=== PATIENT | female | born 1945 | race Caucasian/White ===

== ENCOUNTER 2016-06-06 23:07 | Observation (INO) | payer OTHER ==
[~2016-06-06] VITALS: Ht 170.2 cm; Wt 159.0 kg
[~2016-06-06 23:07] MED LIST: 1-ME1LIQ PO; ASPI81TA11 PO; D31000CA PO; FURO20 PO; KCL10C PO; LISI20 PO; MOBI7.5T PO; SERT-129 PO
[2016-06-06 23:20] VITALS: BP 134/66; PULSE 82; RESP 19; TEMP 97.6; O2SAT 96
[2016-06-06] MEDS ORDERED: ACETAMINOPHEN 500 MG CPLT PO ONE (23:30)
[2016-06-06] MEDS ORDERED: SODIUM CHLORIDE 0.9% FLUSH 5 ML FLUSH IVF PRN (23:30)
--- NOTE | 2016-06-06 23:35 | PD ---
HPI Chief Complaint: Fall Time Seen by Provider: 23:09 Travel History International Travel<30 days: No Contact w/Intl Traveler<30days: No Traveled to known affect area: No History of Present Illness HPI Morbidly obese 70-year-old female who presents the emergency department for generalized weakness after a fall. Patient states that she has not been ambulatory for the better part of 6 months, wheelchair-bound. Over the last week she has been generally weak, and unable to even get out of bed it. She attempted to get out of bed evening when she slid out of the side of the bed onto the floor. Patient denies hurting herself, hitting her head, LOC. She has chronic hip and knee pain but this is not any worse than it is at baseline. EMS was summoned for lift assist, but when they found patient so generally weak and the house in a deplorable state patient was transported here. PFSH Past Medical History Anxiety: Yes Depression: No Cancer: No Cardiovascular Problems: Yes High Cholesterol: No Diabetes: No Genitourinary: Yes (INCONTINENCE ) Hypertension: Yes Immune Disorder: No Psychiatric: No Reproductive: No Respiratory: No (OCCASIONALLY GETS SOB ON EXERTION) Thyroid Disease: No ?: Not Past Surgical History Abdominal Surgery: Yes (gastric bypass) Section: Yes Cholecystectomy: Yes Social History Alcohol Use: Yes (2 drinks daily) Tobacco Use: No Substance Use: No Allergies-Medications (Allergen,Severity, Reaction): Coded Allergies: Codeine (Verified Allergy, Severe, 06/06/16) sever n/v Demerol (Verified Allergy, Severe, 06/06/16) sever n/v Reported Meds & Prescriptions Reported Meds & Active Scripts Active Review of Systems ROS Limitations: Poor Historian Except as stated in HPI: all other systems reviewed are Neg Physical Exam Exam Limitations: Poor Historian Narrative GENERAL: Morbidly obese female in no acute distress SKIN: Warm and dry. HEAD: Atraumatic. Normocephalic. EYES: Pupils equal and round. No scleral icterus. No injection or drainage. ENT: No nasal bleeding or discharge. Mucous membranes pink and moist. NECK: Supple, obese, no midline tenderness CARDIOVASCULAR: Regular rate and rhythm. No murmur appreciated. RESPIRATORY: No accessory muscle use. Clear to auscultation. Breath sounds equal bilaterally. GASTROINTESTINAL: Abdomen soft, non-tender, nondistended. Obese MUSCULOSKELETAL: Venous stasis edema in the bilateral lower extremities. Passive range of motion of the extremities without pain. Patient is able to lift the upper extremities off the bed, but is not able to do so with the lower extremities. She is not able to shift her weight in bed. NEUROLOGICAL: Awake and alert. No obvious cranial nerve deficits. Motor grossly within normal limits. Normal speech. PSYCHIATRIC: Appropriate mood and affect; insight and judgment normal. Data Data Last Documented VS Vital Signs Date Time Temp Pulse Resp B/P Pulse Ox O2 Delivery O2 Flow Rate FiO2 06/06/16 23:24 84 19 96 Room Air 06/06/16 23:20 97.6 134/66 Orders Basic Metabolic Panel (Bmp) (06/06/16 23:18) Complete Blood Count With Diff (06/06/16 23:18) Urinalysis - C+S If Indicated (06/06/16 23:18) Iv Access Insert/Monitor (06/06/16 23:18) Ecg Monitoring (06/06/16 23:18) Oximetry (06/06/16 23:18) Sodium Chloride 0.9% Flush (Ns Flush) (06/06/16 23:30) Cath For Specimen (06/06/16 23:18) Acetaminophen (Tylenol) (06/06/16 23:30) Hydralazine Inj (Apresoline Inj) (06/07/16 00:00) Labs Laboratory Tests Test 06/06/16 06/06/16 23:58 23:59 Sodium Level 144 MEQ/L Potassium Level 4.5 MEQ/L Chloride Level 109 MEQ/L Carbon Dioxide Level 25.5 MEQ/L Anion Gap 10 MEQ/L Blood Urea Nitrogen 13 MG/DL Creatinine 0.84 MG/DL Estimat Glomerular Filtration 67 ML/MIN Rate Random Glucose 75 MG/DL Calcium Level 8.9 MG/DL White Blood Count 8.9 TH/MM3 Red Blood Count 4.39 MIL/MM3 Hemoglobin 13.9 GM/DL Hematocrit 42.3 % Mean Corpuscular Volume 96.3 FL Mean Corpuscular Hemoglobin 31.6 PG Mean Corpuscular Hemoglobin 32.8 % Concent Red Cell Distribution Width 15.8 % Platelet Count 219 TH/MM3 Mean Platelet Volume 10.3 FL Neutrophils (%) (Auto) 76.4 % Lymphocytes (%) (Auto) 10.3 % Monocytes (%) (Auto) 9.6 % Eosinophils (%) (Auto) 3.2 % Basophils (%) (Auto) 0.5 % Neutrophils # (Auto) 6.8 TH/MM3 Lymphocytes # (Auto) 0.9 TH/MM3 Monocytes # (Auto) 0.9 TH/MM3 Eosinophils # (Auto) 0.3 TH/MM3 Basophils # (Auto) 0.0 TH/MM3 CBC Comment AUTO DIFF Differential Comment AUTO DIFF CONFIRMED Platelet Estimate NORMAL Platelet Morphology Comment NORMAL Acanthocytes OCC MDM Medical Decision Making Medical Screen Exam Complete: Yes Emergency Medical Condition: Yes Medical Record Reviewed: Yes Differential Diagnosis 70-year-old female here with complaint of generalized weakness status post fall. Her weakness certainly does not sound acute, but has been worsening over the course the last 6 months. She denies any new, acute pain from her fall and does not have any focal findings on exam. Differential includes failure to thrive, morbid obesity, UTI, anemia, electrolyte abnormality, generalized weakness. Narrative Course Patient placed on monitor, IV established and blood obtained. Given Tylenol for chronic pain. CBC, BMP unremarkable. Urinalysis remains pending. Patient will be admitted for physical therapy, and likely placement. Diagnosis Primary Impression: Failure to thrive in adult Additional Impressions: Inability to ambulate due to multiple joints Generalized weakness Morbid obesity Qualified Code: E66.01 - Morbid obesity due to excess calories Admitting Information Admitting Physician Requests: Gracy Haskins MD Jun 06, 2016 23:35
[2016-06-07] VITALS (7 sets, daily range): BP systolic 122–167; BP diastolic 57–80; PULSE 85–100; RESP 18–20; TEMP 96–98.6; O2SAT 92–96
[2016-06-07] MEDS ORDERED: hydrALAZINE HCL 20 MG/ML VIAL IV PUSH ONE
[2016-06-07 00:11] LABS: AUTOMATED NEUTROPHIL # 6.8 TH/MM3 (1.8-7.7); BASOPHIL % 0.5 % (0.0-2.0); EOSINOPHIL # 0.3 TH/MM3 (0-0.4); EOSINOPHIL % 3.2 % (0.0-4.0); HEMATOCRIT 42.3 % (35.0-46.0); LYMPH % 10.3 % (9.0-44.0); LYMPHOCYTE # 0.9 TH/MM3 (1.0-4.8); MEAN CELL VOLUME 96.3 FL (80.0-100.0); MEAN CORPUSCULAR HEMOGLOBIN 31.6 PG (27.0-34.0); MEAN CORPUSCULAR HGB CONC 32.8 % (32.0-36.0); MONO % 9.6 % (0.0-8.0); NEUT % 76.4 % (16.0-70.0); PLATELET COUNT 219 TH/MM3 (150-450); RED BLOOD COUNT 4.39 MIL/MM3 (4.00-5.30); RED CELL DISTRIBUTION WIDTH 15.8 % (11.6-17.2); WHITE BLOOD COUNT 8.9 TH/MM3 (4.0-11.0)
[2016-06-07 00:14] LABS: HEMO FLAGS AUTO DIFF
[2016-06-07 00:47] LABS: BICARBONATE 25.5 MEQ/L (21.0-32.0)
[2016-06-07 00:51] LABS: ACANTHOCYTES OCC (NORMAL); PLATELET ESTIMATE SMEAR NORMAL (NORMAL); PLATELET MORPHOLOGY NORMAL (NORMAL); SCAN/DIFF AUTO DIFF CONFIRMED
[2016-06-07 00:53] LABS: POTASSIUM 4.5 MEQ/L (3.5-5.1)
[2016-06-07] MEDS ORDERED: SODIUM CHLORIDE 0.9% FLUSH 5 ML FLUSH FLUSH PRN (01:30)
[2016-06-07] MEDS ORDERED: BISACODYL 10 MG SUPP PR PRN (01:30)
[2016-06-07 01:42] LABS: BACTERIA, URINE MANY /hpf; BLOOD, URINE TRACE (NEG); CALCIUM OXALATE CRYSTALS,URINE RARE /hpf; GLUCOSE,URINE NEG (NEG); KETONE, URINE 10 mg/dL (NEG); MUCUS URINE FEW /lpf (OCC); SQUAMOUS EPITHELIAL CELL URINE 1 /hpf (0-5); URINE COLOR YELLOW (YELLW/STRAW)
[2016-06-07 01:44] LABS: COMMENT (UR) CATH-CULTURE IND; CULTURE IF INDICATED CATH CULTURE IND; NITRITE,URINE POS (NEG)
--- NOTE | 2016-06-07 02:25 | HHI.HP ---
[facility] Service [place] [facility] Primary Care Physician Milan Beckett MD Admission Diagnosis generalized weakness, failure to thrive, inability to ambulate Diagnoses: (1) Fall Diagnosis: Principal (2) Generalized weakness Diagnosis: Principal (3) Total self-care deficit Diagnosis: Principal (4) Morbid obesity Diagnosis: Principal (5) UTI (urinary tract infection) Diagnosis: Principal Travel History International Travel<30 Days: No Contact w/Intl Traveler <30 Da: No Traveled to Known Affected Are: No History of Present Illness This is a 70-year-old female with a PMH of Anxiety, HTN and Morbid Obesity (BMI 54.9) who was brought to the ER by EMS after a fall at home. Pt wheelchair- bound at baseline. States her and her recently moved to new apartment 2wks ago. 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 unable to help her get up. Per pt, is fully ambulatory and able to care for her "95% of the time", however EMS notes apartment in deplorable state. On arrival, BP 134/66, HR 82, O2 sat 96% on RA, Afebrile. Labs essentially unremarkable. Review of Systems Other ROS: 14 point review of systems otherwise negative. Past Family Social History Past Medical History PMH: Anxiety, HTN and Morbid Obesity (BMI 54.9) Past Surgical History PAST SURGICAL HISTORY: Gastric Bypass, Cholecystectomy, Allergies: Coded Allergies: Codeine (Verified Allergy, Severe, 06/06/16) sever n/v Demerol (Verified Allergy, Severe, 06/06/16) sever n/v Family History PAST FAMILY HISTORY: Reviewed. No h/o DM or CAD Social History PAST SOCIAL HISTORY: Occasional alcohol. Negative for tobacco or drugs. Physical Exam Vital Signs Vital Signs Date Time Temp Pulse Resp B/P Pulse Ox O2 Delivery O2 Flow Rate FiO2 06/06/16 23:24 84 19 96 Room Air 06/06/16 23:20 97.6 82 19 134/66 96 Physical Exam PE: GENERAL: Elderly, morbidly obese white female in no acute distress. HEENT: PERRLA, EOMI. No scleral icterus or conjunctival pallor. No lid lag or facial droop. Very poor dentition. CARDIOVASCULAR: Regular rate and rhythm. No obvious murmurs to auscultation. No chest tenderness to palpation. RESPIRATORY: No obvious rhonchi or wheezing. Clear to auscultation. Breath sounds equal bilaterally. GASTROINTESTINAL: Abdomen soft, non-tender, nondistended. BS normal. MUSCULOSKELETAL: Extremities without clubbing. Bilateral lower extremity edema, chronic skin changes. No obvious deformities. NEUROLOGICAL: Awake, alert and oriented x4. No focal neurologic deficits. Moving upper extremities, weakness lower extremities. Laboratory Laboratory Tests Test 06/06/16 06/06/16 06/07/16 23:58 23:59 01:04 Sodium Level 144 Potassium Level 4.5 Chloride Level 109 Carbon Dioxide Level 25.5 Anion Gap 10 Blood Urea Nitrogen 13 Creatinine 0.84 Estimat Glomerular Filtration 67 Rate Random Glucose 75 Calcium Level 8.9 White Blood Count 8.9 Red Blood Count 4.39 Hemoglobin 13.9 Hematocrit 42.3 Mean Corpuscular Volume 96.3 Mean Corpuscular Hemoglobin 31.6 Mean Corpuscular Hemoglobin 32.8 Concent Red Cell Distribution Width 15.8 Platelet Count 219 Mean Platelet Volume 10.3 Neutrophils (%) (Auto) 76.4 Lymphocytes (%) (Auto) 10.3 Monocytes (%) (Auto) 9.6 Eosinophils (%) (Auto) 3.2 Basophils (%) (Auto) 0.5 Neutrophils # (Auto) 6.8 Lymphocytes # (Auto) 0.9 Monocytes # (Auto) 0.9 Eosinophils # (Auto) 0.3 Basophils # (Auto) 0.0 CBC Comment AUTO DIFF Differential Comment AUTO DIFF CONFIRMED Platelet Estimate NORMAL Platelet Morphology Comment NORMAL Acanthocytes OCC Urine Color YELLOW Urine Turbidity HAZY Urine pH 6.0 Urine Specific [place] 1.026 Urine Protein 30 Urine Glucose (UA) NEG Urine Ketones 10 Urine Occult Blood TRACE Urine Nitrite POS Urine Bilirubin SMALL Urine Urobilinogen 2.0 Urine Leukocyte Esterase LARGE Urine RBC 6 Urine WBC 72 Urine Squamous Epithelial 1 Cells Urine Calcium Oxalate Crystals RARE Urine Bacteria MANY Urine Mucus FEW Microscopic Urinalysis Comment CATH-CULTURE IND Date/Time Procedure Status Source Growth 06/07/16 01:04 Urine Culture Received Urine Catheterized Urine Pending Result Diagram: 06/06/16 2359 06/06/16 2358 Assessment and Plan Problem List: (1) Fall ICD Code: W19.XXXA Status: Acute (2) Generalized weakness ICD Code: R53.1 Status: Acute (3) Total self-care deficit ICD Code: R41.89 Status: Acute (4) Morbid obesity ICD Code: E66.01 Status: Acute (5) UTI (urinary tract infection) ICD Code: N39.0 Status: Acute Assessment and Plan A/P: 1. Fall: fall from bed, no head trauma or LOC, likely secondary to physical deconditioning. Wheelchair bound at baseline. 2. Generalized Weakness: Progressively worse x2 wks, wheelchair bound at baseline, non-ambulatory. Likely combination of morbid obesity, physical deconditioning and acute UTI. 3. Total Self-Care Deficit: Pt unable to care for self, wheelchair bound, unable to ambulate/transfer unassisted secondary to morbid obesity. 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 Will consult Case Management for assistance w/ possible placement. 4. Morbid Obesity: BMI 54.9. 5. UTI: U/a w/ UTI. Start IV Rocephin. 6. DVT Prophylaxis: Heparin 7. Social work for d/c planning as needed. 8. Case discussed w/ ER physician at length Problem Qualifiers (1) Morbid obesity: Qualified Code: E66.01 - Morbid obesity due to excess calories Fracnes Brush MD Jun 07, 2016 02:25
[2016-06-07] MEDS: cefTRIAXone INJ 1,000 MG in SODIUM CHLORIDE 0.9% INJ 100 ML IV SCH (03:57)
[2016-06-07] MEDS: NYSTATIN 100,000 U/GM PWD 15 GM BTL TOPICAL SCH ×3 (06:26→20:45)
--- NOTE | 2016-06-07 08:14 | HHI.PR ---
Subjective Remarks Follow up for fall and UTI. The patient explains that she just slipped off her new bed while reaching for her phone cord. Denies any injury, however could not get herself off the floor. She has been in the bed for over 1 week now since moving to her new apartment. She recently had C RN, CORNER FORMER, and PT coming to her home which started last Wednesday, arranged by her PCP. Prior to moving, she would occasionally be able to stand and pivot from wheelchair to bed but now unable to stand. She does not want to go to rehab but instead would prefer to return home with [facility]. She denies any dysuria, increased urinary frequency/urgency; she does have incontinence at baseline for over a year now. She reports her lower extremities were "very bad" in March with significant edema and weeping wounds. She was started on lasix at that time and now her lower extremities are much improved. Objective Vitals Vital Signs Date Time Temp Pulse Resp B/P Pulse Ox O2 Delivery O2 Flow Rate FiO2 06/07/16 06:51 96.0 85 18 124/68 95 06/07/16 04:50 97.5 87 20 144/67 95 06/07/16 03:00 98.6 85 20 146/80 96 06/07/16 02:45 86 20 167/74 96 06/06/16 23:24 84 19 96 Room Air 06/06/16 23:20 97.6 82 19 134/66 96 Result Diagram: 06/06/162 06/06/16 226 Objective Remarks GENERAL: Well-nourished, well-developed morbidly obese patient in [facility]. SKIN: Warm and dry. HEAD: Normocephalic. Atraumatic. EYES: Pupils equal and round. No scleral icterus. No injection or drainage. ENT: No nasal bleeding or discharge. Mucous membranes pink and moist. NECK: Supple. Trachea midline. CARDIOVASCULAR: Regular rate and rhythm. S1, S2 noted. No murmur appreciated. RESPIRATORY: No accessory muscle use. Clear to auscultation. Breath sounds equal bilaterally. GASTROINTESTINAL: Abdomen soft, non-tender, nondistended. Normoactive bowel sounds x4. MUSCULOSKELETAL: No obvious deformities. Bilateral lower extremities with chronic nonpitting edema, some overlying excoriations/scabs. NEUROLOGICAL: Awake and alert. No obvious cranial nerve deficits. Motor grossly within normal limits. 5/5 muscle strength in bilateral upper and lower extremities. Normal speech. PSYCHIATRIC: Appropriate mood and affect; insight and judgment normal. Medications and IVs Current Medications Medications (Trade) Dose Ordered Sig/Alhaji Route Start Time Stop Time Status Last Admin (NS Flush) 2 ml UNSCH PRN FLUSH 06/07/16 01:30 (NS Flush) 2 ml BID FLUSH 06/07/16 09:00 (Zofran Inj) 4 mg Q6H PRN IVP 06/07/16 01:30 (Dulcolax Supp) 10 mg DAILY PRN TX 06/07/16 01:30 (Heparin Inj) 5,000 units Q12HR SQ 06/07/16 09:00 (Tylenol) 650 mg Q6H PRN PO 06/07/16 01:30 Nystatin 1 applic 1 applic Q8HR TOPICAL 06/07/16 06:00 06/07/16 06:26 (Rocephin Inj/NS Inj) 100 ml @ 200 mls/hr Q24H IV 06/07/16 03:00 06/07/16 03:57 Urinary Catheter: No Vascular Central Line Catheter: No A/P Problem List: (1) Fall ICD Code: W19.XXXA Status: Acute (2) Generalized weakness ICD Code: R53.1 Status: Acute (3) Total self-care deficit ICD Code: R41.89 Status: Acute (4) Morbid obesity ICD Code: E66.01 Status: Chronic (5) UTI (urinary tract infection) ICD Code: N39.0 Status: Acute Assessment and Plan 70-year-old female with a PMH of Anxiety, HTN and Morbid Obesity (BMI 54.9) who was brought to the ER by EMS after a fall at home. Pt wheelchair-bound at baseline. Fall: fall from bed, no head trauma or LOC, likely secondary to physical deconditioning. Wheelchair bound at baseline. Consult PT/OT. Generalized Weakness: Progressively worse x2 wks, wheelchair bound at baseline , non-ambulatory. Likely combination of morbid obesity, physical deconditioning and acute UTI. Total Self-Care Deficit: Pt unable to care for self, wheelchair bound, unable to ambulate/transfer unassisted secondary to morbid obesity. 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 Consult Case Management for assistance w/ possible placement; however patient adamantly wants to return home. She recently started having C RN/PT come to the home and would like to resume this. Morbid Obesity: BMI 54.9. UTI: U/a w/ UTI. Afebrile, no leukocytosis. Start IV Rocephin. Follow urine culture. DVT Prophylaxis: Heparin sq Case management for d/c planning. Attending Statement The exam, history, and the medical decision-making described in the above note were completed with the assistance of the mid-level provider. I reviewed and agree with the findings presented. I attest that I had a [id number] encounter with the patient on the same day, and personally performed and documented my assessment and findings in the medical record. Problem Qualifiers (1) Fall: Qualified Code: W19.XXXD - Fall, subsequent encounter (2) Morbid obesity: Qualified Code: E66.01 - Morbid obesity, unspecified obesity type (3) UTI (urinary tract infection): Qualified Code: N30.00 - Acute cystitis without hematuria Pastora Dunham PA-C Jun 07, 2016 08:14 Ede Shin MD Jun 15, 2016 18:44
[2016-06-07] MEDS ORDERED: VITA10003 PO (09:43)
[2016-06-07] MEDS ORDERED: ASPI1TAB69 PO (09:43)
[2016-06-07] MEDS ORDERED: LISI-515 PO (09:54)
[2016-06-07] MEDS ORDERED: SERT-129 PO (09:54)
[2016-06-07] MEDS ORDERED: POTA10TA2 PO (09:54)
[2016-06-07] MEDS ORDERED: MELO7.5T4 PO (09:54)
[2016-06-07] MEDS ORDERED: FURO20TA PO (09:54)
[2016-06-07] MEDS ORDERED: AMLO10TA2 PO (09:57)
[2016-06-07] MEDS: ONDANSETRON HCL 4 MG/2 ML VIAL IVP PRN (10:15)
[2016-06-07] MEDS: HEPARIN SODIUM - SQ 10,000 UNITS/ML VIAL SQ SCH ×2 (10:16→20:45)
[2016-06-07] MEDS: SODIUM CHLORIDE 0.9% FLUSH 5 ML FLUSH FLUSH SCH ×2 (10:16→20:45)
[2016-06-07] MEDS: ACETAMINOPHEN 325 MG TAB PO PRN ×2 (11:53→18:25)
[2016-06-07] MEDS: ACETAMINOPHEN/HYDROcodone 325 MG/5 MG TAB PO PRN ×2 (14:15→20:45)
[2016-06-07] MEDS: MELOXICAM 7.5 MG TAB PO SCH (20:44)
[2016-06-07] MEDS ORDERED: SERTRALINE HCL 100 MG TAB PO SCH (21:00)
[2016-06-08 00:11] VITALS: BP 119/62; PULSE 84; RESP 20; TEMP 98; O2SAT 96
[2016-06-08] MEDS: cefTRIAXone INJ 1,000 MG in SODIUM CHLORIDE 0.9% INJ 100 ML IV SCH (02:06)
[2016-06-08] MEDS: ACETAMINOPHEN/HYDROcodone 325 MG/5 MG TAB PO PRN (03:44)
[2016-06-08] MEDS: NYSTATIN 100,000 U/GM PWD 15 GM BTL TOPICAL SCH ×2 (03:44→14:39)
[2016-06-08 04:21] LABS: AUTOMATED NEUTROPHIL # 3.8 TH/MM3 (1.8-7.7); BASOPHIL % 0.7 % (0.0-2.0); EOSINOPHIL # 0.3 TH/MM3 (0-0.4); EOSINOPHIL % 5.4 % (0.0-4.0); HEMATOCRIT 36.9 % (35.0-46.0); HEMO FLAGS DIFF FINAL; LYMPH % 21.7 % (9.0-44.0); LYMPHOCYTE # 1.3 TH/MM3 (1.0-4.8); MEAN CELL VOLUME 96.5 FL (80.0-100.0); MEAN CORPUSCULAR HGB CONC 32.1 % (32.0-36.0); MONO % 9.7 % (0.0-8.0); NEUT % 62.5 % (16.0-70.0); PLATELET COUNT 183 TH/MM3 (150-450); RED BLOOD COUNT 3.82 MIL/MM3 (4.00-5.30); RED CELL DISTRIBUTION WIDTH 15.7 % (11.6-17.2)
[2016-06-08 04:43] LABS: BICARBONATE 25.9 MEQ/L (21.0-32.0); POTASSIUM 3.8 MEQ/L (3.5-5.1)
[2016-06-08 04:51] VITALS: BP 123/69; PULSE 80; RESP 18; TEMP 98; O2SAT 98
[2016-06-08 08:00] VITALS: BP 139/65; PULSE 80; RESP 20; TEMP 96.1; O2SAT 92
--- NOTE | 2016-06-08 08:21 | HHI.PR ---
Subjective Remarks Follow-up for fall and UTI. Patient states she's been having nausea since about 5 AM. No vomiting or abdominal pain. Denies any burning with urination. She complains of generalized pain from her fall, states [place] helps, doesn't usually take [place] at home. She is oriented 3. She states that she's just started physical therapy at home, and would like to continue with that. Declines rehabilitation placement at this time, but understands that if she fails home care, she will need to follow-up with her PCP for possible rehabilitation placement in the future. Objective Vitals Vital Signs Date Time Temp Pulse Resp B/P Pulse Ox O2 Delivery O2 Flow Rate FiO2 06/08/16 04:51 98.0 80 18 123/69 98 06/08/16 04:44 16 06/08/16 00:11 98.0 84 20 119/62 96 06/07/16 21:00 16 06/07/16 19:33 97.8 100 20 122/57 95 06/07/16 17:38 98.0 90 18 140/71 93 06/07/16 12:00 96.4 89 18 144/71 92 I/O 06/07/16 06/07/16 06/07/16 06/08/16 06/08/16 06/08/16 07:00 15:00 23:00 07:00 15:00 23:00 Intake Total 800 ml 240 ml Balance 800 ml 240 ml Intake Oral 700 ml 240 ml IV Total 100 ml # Voids 1 2 3 # Bowel Movements 1 2 Result Diagram: 06/08/16 0355 06/08/16 0355 Objective Remarks GENERAL: Well-developed well-nourished morbidly obese. In no acute distress. Oriented 3. SKIN: Warm and dry. No lesions noted. HEENT: Normocephalic. Pupils equal and round. Mucous membranes pink and moist. CARDIOVASCULAR: Regular rate and rhythm. No murmur appreciated. RESPIRATORY: No accessory muscle use. Clear to auscultation. Breath sounds equal bilaterally. GASTROINTESTINAL: Abdomen soft, non-tender, nondistended. Bowel sounds x4. MUSCULOSKELETAL: No obvious deformities. No clubbing or cyanosis. 1+ nonpitting lower external edema. NEUROLOGICAL: Awake and alert. No focal neurological deficits. Moves upper and lower extremities spontaneously. Normal speech. PSYCHIATRIC: Appropriate mood and affect; insight and judgment normal. A/P Problem List: (1) Fall ICD Code: W19.XXXA Status: Acute (2) Generalized weakness ICD Code: R53.1 Status: Acute (3) Total self-care deficit ICD Code: R41.89 Status: Acute (4) Morbid obesity ICD Code: E66.01 Status: Chronic (5) UTI (urinary tract infection) ICD Code: N39.0 Status: Acute Assessment and Plan 70-year-old female with a PMH of Anxiety, HTN and Morbid Obesity (BMI 54.9) who was brought to the ED by EMS after a fall out of bed at home Fall: fall from bed, no head trauma or LOC, likely secondary to physical deconditioning. Wheelchair bound at baseline. Pain control with [place] as needed, decrease dosing frequency. Generalized Weakness: Progressively worse x2 wks, wheelchair bound at baseline , non-ambulatory. Likely combination of morbid obesity, physical deconditioning , and acute UTI. PT recommends SNF placement. Total Self-Care Deficit: Pt unable to care for self, wheelchair bound, unable to ambulate/transfer unassisted secondary to morbid obesity. Patient declines SNF placement. is reportedly caregiver at home, will follow up with . 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 UTI: U/a w/ evidence of UTI. Continue empiric IV Rocephin and follow up urine culture results. Nausea: No abdominal pain or vomiting. Zofran as needed. Start Pepcid for GI protection with NSAID use. DVT Prophylaxis: Heparin Discharge Planning Discharge planning to home with [facility] if patient's /caregiver is agreeable. Discussed with case management. Discussed with Dr. Shin. Discharge patient to home Condition on discharge: Improved Regular Diet as tolerated Ad [place] activity Rx written: Famotidine. Cipro. Follow-up with primary care physician Attending Statement The exam, history, and the medical decision-making described in the above note were completed with the assistance of the mid-level provider. I reviewed and agree with the findings presented. I attest that I had a [id number] encounter with the patient on the same day, and personally performed and documented my assessment and findings in the medical record. Problem Qualifiers (1) Fall: Qualified Code: W19.XXXD - Fall, subsequent encounter (2) Morbid obesity: Qualified Code: E66.01 - Morbid obesity, unspecified obesity type (3) UTI (urinary tract infection): Qualified Code: N30.00 - Acute cystitis without hematuria Andrea Granados Jun 08, 2016 08:21 Ede Shin MD Jun 15, 2016 23:59
[2016-06-08] MEDS ORDERED: FAMOTIDINE 20 MG TAB PO SCH (09:00)
[2016-06-08] MEDS ORDERED: POTASSIUM CHLORIDE 10 MEQ CONTROLLED RELEASE TAB PO SCH (09:00)
[2016-06-08] MEDS ORDERED: FUROSEMIDE 20 MG TAB PO SCH (09:00)
[2016-06-08] MEDS ORDERED: ASPIRIN EC 81 MG TABEC PO SCH (09:00)
[2016-06-08] MEDS ORDERED: LISINOPRIL 20 MG TAB PO SCH (09:00)
[2016-06-08] MEDS: SODIUM CHLORIDE 0.9% FLUSH 5 ML FLUSH FLUSH SCH (09:01)
[2016-06-08] MEDS: MELOXICAM 7.5 MG TAB PO SCH (09:03)
[2016-06-08] MEDS: HEPARIN SODIUM - SQ 10,000 UNITS/ML VIAL SQ SCH (09:03)
[2016-06-08] MEDS: ONDANSETRON HCL 4 MG/2 ML VIAL IVP PRN ×2 (09:03→14:39)
[2016-06-08] MEDS: ACETAMINOPHEN 325 MG TAB PO PRN (09:04)
[2016-06-08] MEDS ORDERED: CIPR250T52 PO (11:21)
[2016-06-08] MEDS ORDERED: FAMO20TA2 PO (11:21)
--- NOTE | 2016-06-08 11:24 | HHI.FF ---
Face to Face Verification Diagnosis: (1) Failure to thrive in adult (2) Fall (3) UTI (urinary tract infection) (4) Generalized weakness (5) Morbid obesity Physical Therapy Order: Evaluate and Treat, Improve ambulation, Strength and gait training Home Health Nursing Order: Medical education Signs/symptoms of disease process Medication education-adverse effect Nursing assessment with vital signs Road Design Engineer Order: To Evaluate: Living conditions/environment, Support services Order: To Provide: Long range planning, Community services I have seen patient Demi Arreola on 06/08/16. My clinical findings support the need for the requested home health care services because: Ltd mobility - disease progression Deconditioned w/ increased weakness Limited ability to care for self High risk of falls I certify that my clinical findings support that this patient is homebound because: Unsteady gait/balance Unsafe to leave home unassisted [id number] bed/chair Unable to use public transportation Andrea Granados Jun 08, 2016 11:23
[2016-06-08 12:00] VITALS: BP 119/60; PULSE 72; RESP 20; TEMP 96.8; O2SAT 90
[2016-06-08] MEDS ORDERED: ACETAMINOPHEN/HYDROcodone 325 MG/5 MG TAB PO PRN (15:15)
[2016-06-08 16:00] VITALS: BP 134/63; PULSE 77; RESP 20; TEMP 95.9; O2SAT 90
== END 2016-06-08 18:11 | disposition home or self-care (01) ==
LOC: NEPE 23:07 → NEDA 06-07 01:28 → NEPFCDU 06-07 03:00
PROVIDERS: ADMIT Internal Medicine; ATTEND Internal Medicine
DX: R53.1 Weakness (principal); R62.7 Adult failure to thrive; N39.0 Urinary tract infection, site not specified; B96.20 Unspecified Escherichia coli [E. coli] as the cause of diseases classified elsewhere; B96.1 Klebsiella pneumoniae [K. pneumoniae] as the cause of diseases classified elsewhere; I10 Essential (primary) hypertension; M25.569 Pain in unspecified knee; G89.29 Other chronic pain; R41.89 Other symptoms and signs involving cognitive functions and awareness; E66.01 Morbid (severe) obesity due to excess calories; Z99.3 Dependence on wheelchair; Z68.43 Body mass index [BMI] 50.0-59.9, adult; Z98.84 Bariatric surgery status; W06.XXXA Fall from bed, initial encounter; Y92.003 Bedroom of unspecified non-institutional (private) residence as the place of occurrence of the external cause
CPT/HCPCS: 80048; 81001; 85025; 87077; 87086; 87186; 97163; 97167; 99285; G0378; G8987; G8988; J0696; J1644; J2405; P9612

== ENCOUNTER 2016-06-23 13:46 | Inpatient (IN) | payer OTHER, MEDICARE ==
[~2016-06-23] VITALS: Ht 165.1 cm; Wt 133.0 kg
[2016-06-23] VITALS (7 sets, daily range): BP systolic 131–172; BP diastolic 64–93; PULSE 69–86; RESP 16; TEMP 96.9–97.6; O2SAT 93–97
[~2016-06-23 13:46] MED LIST changes: -1-ME1LIQ PO; +AMLO10TA2 PO; +ASPI1TAB69 PO; -ASPI81TA11 PO; +CIPR250T52 PO; -D31000CA PO; +FAMO20TA2 PO; -FURO20 PO; +FURO20TA PO; -KCL10C PO; +LISI-515 PO; -LISI20 PO; +MELO7.5T4 PO; -MOBI7.5T PO; +POTA10TA2 PO; +VITA10003 PO
[2016-06-23] MEDS ORDERED: SODIUM CHLOR 0.9% 1000 ML INJ 1,000 ML IV ONE (14:02)
--- NOTE | 2016-06-23 14:12 | PD ---
HPI Chief Complaint: General Weakness Time Seen by Provider: 14:07 Travel History International Travel<30 days: No Contact w/Intl Traveler<30days: No Traveled to known affect area: No History of Present Illness HPI 70-year-old female brought in by EMS with history of generalized weakness for the past 3 weeks. Patient states 3 weeks ago "everything just quit ". Patient has denied fever, chills, nausea, vomiting, or diarrhea. She states a history of arthritis especially in her left leg and hip. She denies history of diabetes, she denies history of thyroid disease. Patient is morbidly obese and has been laying in a [place] bed for the last 3 weeks. Her only real complaint is of discomfort in the lower back and buttocks from laying for so long. She denies open wound. She was referred here by her primary care physician for evaluation. She has an allergy to Demerol and codeine. PFSH Past Medical History Arthritis: Yes Anxiety: Yes Depression: No Cancer: No Cardiovascular Problems: Yes High Cholesterol: No Diabetes: No Genitourinary: Yes (INCONTINENCE ) Hypertension: Yes Immune Disorder: No Psychiatric: No Reproductive: No Thyroid Disease: No Influenza Vaccination: Yes Past Surgical History Abdominal Surgery: Yes (gastric bypass) Section: Yes (X2) Cholecystectomy: Yes Other Surgery: Yes (GASTRIC BYPASS, GALLBLADDER REMOVAL) Social History Alcohol Use: Yes (2 drinks daily) Tobacco Use: No Substance Use: No Allergies-Medications (Allergen,Severity, Reaction): Coded Allergies: Codeine (Verified Allergy, Severe, 06/06/16) sever n/v Demerol (Verified Allergy, Severe, 06/06/16) sever n/v Reported Meds & Prescriptions Reported Meds & Active Scripts Active Cipro (Ciprofloxacin HCl) 250 Mg Tab 250 Mg PO BID Famotidine 20 Mg Tab 20 Mg PO BID Reported Amlodipine (Amlodipine Besylate) 10 Mg Tab 10 Mg PO DAILY Sertraline (Sertraline HCl) 100 Mg Tab 200 Mg PO HS Potassium Chloride ER (Potassium Chloride) 10 Meq Tab 10 Meq PO DAILY Meloxicam 7.5 Mg Tab 7.5 Mg PO BID Lisinopril 20 Mg Tab 20 Mg PO DAILY Furosemide 20 Mg Tab 20 Mg PO DAILY Vitamin D-3 (Cholecalciferol) 1,000 Unit Tab 1,000 Units PO DAILY Aspirin 81 Mg Tabdr 81 Mg PO DAILY Review of Systems Except as stated in HPI: all other systems reviewed are Neg General / Constitutional: No: Fever, Chills Eyes: No: Visual changes HENT: No: Headaches, Vertigo, Lightheadedness Cardiovascular: No: Chest Pain or Discomfort Respiratory: No: Shortness of Breath Gastrointestinal: No: Nausea, Vomiting, Diarrhea, Abdominal Pain Genitourinary: No: Dysuria Musculoskeletal: No: Pain Skin: No Rash Neurologic: No: Weakness Psychiatric: No: Depression Endocrine: No: Polydipsia Hematologic/Lymphatic: No: Easy Bruising Physical Exam Narrative GENERAL: Morbidly obese patient in no acute distress. SKIN: Warm and dry. Mild pallor. Moderately poor turgor. Mild tenting. HEAD: Atraumatic. Normocephalic. EYES: Pupils equal and round. No scleral icterus. No injection or drainage. ENT: No nasal bleeding or discharge. Mucous membranes pink and dry. Pharynx is clear. Airway is patent. NECK: Trachea midline. No JVD. Supple and nontender. No palpable goiter or thyroid. CARDIOVASCULAR: Regular rate and rhythm. No murmurs appreciated this time. RESPIRATORY: No accessory muscle use. Clear to auscultation. Breath sounds equal bilaterally. GASTROINTESTINAL: Abdomen soft, non-tender, nondistended. Hepatic and splenic margins not palpable. MUSCULOSKELETAL: Extremities without clubbing, cyanosis, or edema. No obvious deformities. NEUROLOGICAL: Awake and alert. No obvious cranial nerve deficits. Motor grossly within normal limits. Five out of 5 muscle strength in the arms and legs. Normal speech. PSYCHIATRIC: Appropriate mood and affect; insight and judgment normal. Data Data Last Documented VS Vital Signs Date Time Temp Pulse Resp B/P Pulse Ox O2 Delivery O2 Flow Rate FiO2 06/23/16 13:55 69 16 140/93 95 Room Air Orders Electrocardiogram (06/23/16 14:02) Complete Blood Count With Diff (06/23/16 14:02) Comprehensive Metabolic Panel (06/23/16 14:02) Magnesium (Mg) (06/23/16 14:02) Ckmb (Isoenzyme) Profile (06/23/16 14:02) Troponin I (06/23/16 14:02) Act Partial Throm Time (Ptt) (06/23/16 14:02) Prothrombin Time / Inr (Pt) (06/23/16 14:02) Urinalysis - C+S If Indicated (06/23/16 14:02) Chest, Single Ap (06/23/16 14:02) Ecg Monitoring (06/23/16 14:02) Iv Access Insert/Monitor (06/23/16 14:02) Oximetry (06/23/16 14:02) Sodium Chloride 0.9% Flush (Ns Flush) (06/23/16 14:15) Sodium Chlor 0.9% 1000 Ml Inj (Ns 1000 M (06/23/16 14:02) Thyroid Stimulating Hormone (06/23/16 14:02) Cath For Specimen (06/23/16 14:02) CKMB (06/23/16 15:25) CKMB% (06/23/16 15:25) Urinary Catheter Insert/Apply (06/23/16 16:56) Urine Culture (06/23/16 17:20) Ceftriaxone Inj (Rocephin Inj) (06/23/16 18:00) Labs Laboratory Tests Test 06/23/16 06/23/16 15:25 17:20 White Blood Count 8.7 TH/MM3 Red Blood Count 4.37 MIL/MM3 Hemoglobin 13.6 GM/DL Hematocrit 41.0 % Mean Corpuscular Volume 93.9 FL Mean Corpuscular Hemoglobin 31.2 PG Mean Corpuscular Hemoglobin 33.2 % Concent Red Cell Distribution Width 15.4 % Platelet Count 297 TH/MM3 Mean Platelet Volume 10.2 FL Neutrophils (%) (Auto) 71.3 % Lymphocytes (%) (Auto) 14.3 % Monocytes (%) (Auto) 9.9 % Eosinophils (%) (Auto) 3.8 % Basophils (%) (Auto) 0.7 % Neutrophils # (Auto) 6.2 TH/MM3 Lymphocytes # (Auto) 1.2 TH/MM3 Monocytes # (Auto) 0.9 TH/MM3 Eosinophils # (Auto) 0.3 TH/MM3 Basophils # (Auto) 0.1 TH/MM3 CBC Comment DIFF FINAL Differential Comment Prothrombin Time 11.0 SEC Prothromb Time International 1.0 RATIO Ratio Activated Partial 22.1 SEC Thromboplast Time Sodium Level 141 MEQ/L Potassium Level 4.4 MEQ/L Chloride Level 108 MEQ/L Carbon Dioxide Level 26.7 MEQ/L Anion Gap 6 MEQ/L Blood Urea Nitrogen 11 MG/DL Creatinine 0.72 MG/DL Estimat Glomerular Filtration 80 ML/MIN Rate Random Glucose 76 MG/DL Calcium Level 8.6 MG/DL Magnesium Level 1.9 MG/DL Total Bilirubin 0.6 MG/DL Aspartate Amino Transf 43 U/L (AST/SGOT) Alanine Aminotransferase 22 U/L (ALT/SGPT) Alkaline Phosphatase 153 U/L Total Creatine Kinase 122 U/L Creatine Kinase MB 2.4 NG/ML Troponin I LESS THAN 0.02 NG/ML Total Protein 5.9 GM/DL Albumin 1.9 GM/DL Thyroid Stimulating Hormone 6.720 uIU/ML 3rd Gen Urine Color YELLOW Urine Turbidity CLEAR Urine pH 5.5 Urine Specific [place] 1.028 Urine Protein TRACE mg/dL Urine Glucose (UA) NEG mg/dL Urine Ketones TRACE mg/dL Urine Occult Blood NEG Urine Nitrite NEG Urine Bilirubin NEG Urine Urobilinogen 2.0 MG/DL Urine Leukocyte Esterase MOD Urine RBC 5 /hpf Urine WBC 2 /hpf Urine Squamous Epithelial <1 /hpf Cells Urine Calcium Oxalate Crystals RARE /hpf Urine Bacteria RARE /hpf Urine Mucus FEW /lpf Microscopic Urinalysis Comment CATH-CULTURE IND MDM Medical Decision Making Medical Screen Exam Complete: Yes Emergency Medical Condition: Yes Differential Diagnosis Generalized weakness. Electrolyte imbalance. Thyroid issue. Diabetes. Urinary tract infection. Pressure sores. Narrative Course Patient is medically stable at time of exam. Labs ordered including CBC, CMP, urinalysis, cardiac panel. Chest x-ray and EKG are ordered. Patient is awaiting med bed placement. Labs come back showing a normal CBC. CMP shows a normal BUN/creatinine. Normal electrolytes except for slightly elevated chloride of 108. AST is elevated at 43. ENT normal 22. Alkaline phosphatase slightly elevated 153. Troponin is less than 0.02. Total protein is 5.9. Albumin is 1.9. TSH is significantly elevated at 6.720. Coag show PT of 11.0. INR of 1.0. PTT 22.1. Urinalysis is still pending. Patient is still awaiting med bed placement. Patient is moved to [place] [id number], and the patient is discussed with Dr. Dunbar. More thorough skin exam is performed showing early stage I decubitus ulcers and large amount of inflamed and macerated skin to the perineum and perirectal regions. Delcid catheter is ordered. [employer] is performed by nursing staff. Urinary sample suggest urinary tract infection. Patient is given 1 g Rocephin IV. 1700 hrs. call was placed to the hospitalist for admission. 1600 hrs. patient was discussed with Dr. Vance who agrees to admit the patient for observation. Diagnosis Primary Impression: Generalized weakness Additional Impressions: Sacral pressure ulcer Qualified Code: L89.151 - Decubitus ulcer of sacral region, stage 1 Morbidly obese Qualified Code: E66.01 - Morbid obesity, unspecified obesity type Total self-care deficit Elevated TSH Admitting Information Admitting Physician Requests: Observation Condition: Stable Earl Grewal Jun 23, 2016 14:12
[2016-06-23] MEDS ORDERED: SODIUM CHLORIDE 0.9% FLUSH 5 ML FLUSH IVF PRN (14:15)
--- NOTE | 2016-06-23 14:31 | RADRPT ---
EXAM DATE/TIME: 06/23/2016 14:13 [facility] COMPARISON: CHEST SINGLE AP, February 23, 2016, 11:52. INDICATIONS : Palpitations. MEDICAL HISTORY : Hypertension. SURGICAL HISTORY : None. ENCOUNTER: Initial ACUITY: 1 day PAIN SCORE: 0/10 LOCATION: Bilateral chest FINDINGS: A single view of the chest demonstrates the lungs to be symmetrically aerated without evidence of mas s, infiltrate or effusion. The cardiomediastinal contours are unremarkable. Osseous structures are intact. CONCLUSION: Normal examination. Elías Moreno MD on June 23, 2016 at 14:29 Board Certified Radiologist. This report was verified electronically.
[2016-06-23 15:48] LABS: AUTOMATED NEUTROPHIL # 6.2 TH/MM3 (1.8-7.7); BASOPHIL # 0.1 TH/MM3 (0-0.2); BASOPHIL % 0.7 % (0.0-2.0); EOSINOPHIL # 0.3 TH/MM3 (0-0.4); EOSINOPHIL % 3.8 % (0.0-4.0); HEMO FLAGS DIFF FINAL; LYMPH % 14.3 % (9.0-44.0); LYMPHOCYTE # 1.2 TH/MM3 (1.0-4.8); MEAN CELL VOLUME 93.9 FL (80.0-100.0); MEAN CORPUSCULAR HEMOGLOBIN 31.2 PG (27.0-34.0); MEAN CORPUSCULAR HGB CONC 33.2 % (32.0-36.0); MONO % 9.9 % (0.0-8.0); NEUT % 71.3 % (16.0-70.0); PLATELET COUNT 297 TH/MM3 (150-450); RED BLOOD COUNT 4.37 MIL/MM3 (4.00-5.30); RED CELL DISTRIBUTION WIDTH 15.4 % (11.6-17.2); WHITE BLOOD COUNT 8.7 TH/MM3 (4.0-11.0)
[2016-06-23 15:57] LABS: APTT (PATIENT) 22.1 SEC (24.3-30.1)
[2016-06-23 16:07] LABS: ALT (GPT) 22 U/L (10-53); ANION GAP 6 MEQ/L (5-15); AST (GOT) 43 U/L (15-37); BICARBONATE 26.7 MEQ/L (21.0-32.0); BLOOD UREA NITROGEN 11 MG/DL (7-18); CHLORIDE 108 MEQ/L (98-107); GLOMERULAR FILTRATION RATE 80 ML/MIN (>89); MAGNESIUM 1.9 MG/DL (1.5-2.5); SODIUM (NA) 141 MEQ/L (136-145)
[2016-06-23 16:09] LABS: POTASSIUM 4.4 MEQ/L (3.5-5.1)
[2016-06-23 16:29] LABS: ALKALINE PHOSPHATASE 153 U/L (45-117); CREATINE KINASE 122 U/L (26-192); TOTAL BILIRUBIN ADULT 0.6 MG/DL (0.2-1.0)
[2016-06-23 16:42] LABS: CKMB 2.4 NG/ML (0.5-3.6)
[2016-06-23 17:39] LABS: BACTERIA, URINE RARE /hpf; BLOOD, URINE NEG (NEG); CALCIUM OXALATE CRYSTALS,URINE RARE /hpf; COMMENT (UR) CATH-CULTURE IND; CULTURE IF INDICATED CATH CULTURE IND; GLUCOSE,URINE NEG (NEG); KETONE, URINE TRACE mg/dL (NEG); MUCUS URINE FEW /lpf (OCC); NITRITE,URINE NEG (NEG); PH, URINE 5.5 (5.0-8.5); SQUAMOUS EPITHELIAL CELL URINE <1 /hpf (0-5); URINE COLOR YELLOW (YELLW/STRAW)
[2016-06-23] MEDS ORDERED: cefTRIAXone INJ 1,000 MG in SODIUM CHLORIDE 0.9% INJ 100 ML IV ONE (18:00)
[2016-06-23] MEDS ORDERED: NALOXONE HCL 0.4 MG/ML AMP IV PRN (20:00)
[2016-06-23] MEDS ORDERED: LEVOFLOXACIN 750 MG PREMIX INJ 150 ML IV SCH (21:00)
--- NOTE | 2016-06-23 21:07 | HHI.HP ---
[facility] Unknown Admission Diagnosis Weakness/decubitus Ulcer/urinary tract infection Diagnoses: Chief Complaint: weakness Travel History International Travel<30 Days: No Contact w/Intl Traveler <30 Da: No Traveled to Known Affected Are: No History of Present Illness History taken from patient and ED physician. 70 y/o obese female with a history of htn, anxity and arthritis was brought into the ED with complaints of generalized weakness for the last 2 weeks. Patient was seen 2 weeks ago on 06/08/16 for a fall at home and discharged with home health care. At that time she declined SNF placement and wanted to try home care first. She is wheelchair bound and is unable to transfer independently. Her is her care provider. She states she has been very weak and unable to get out of bed for the last 2 weeks. Prior to her last admission she states her son pulled her across the bed to move her and ever since has has not been able to move over. She is incontinent of urine and stool. Prior to last admission she was able to transfer to a bedside commode. She denies any fever, chills, chest pain, sob,nausea or vomiting. She is currently having loose stools. Review of Systems Constitutional: COMPLAINS OF: Fatigue, DENIES: Fever, Chills Respiratory: DENIES: Cough, Shortness of breath Cardiovascular: DENIES: Chest pain, Dyspnea on Exertion, Lower Extremity Edema Gastrointestinal: COMPLAINS OF: Diarrhea, DENIES: Abdominal pain, Constipation , Nausea, Vomiting Genitourinary: DENIES: Urinary incontinence, Hematuria Musculoskeletal: COMPLAINS OF: Joint pain (chronic right hip), Muscle aches, DENIES: Back pain, Neck pain Integumentary: DENIES: Rash Hematologic/lymphatic: DENIES: Lymphadenopathy Immunologic/allergic: DENIES: Urticaria Neurologic: DENIES: Headache, Localized weakness Past Family Social History Past Medical History Arthritis Obesity HTN Anxiety Past Surgical History Gastric bypass Cholecystomy C Section x2 Appendectomy Reported Medications Reported Meds & Active Scripts Active Cipro (Ciprofloxacin HCl) 250 Mg Tab 250 Mg PO BID Famotidine 20 Mg Tab 20 Mg PO BID Reported Amlodipine (Amlodipine Besylate) 10 Mg Tab 10 Mg PO DAILY Sertraline (Sertraline HCl) 100 Mg Tab 200 Mg PO HS Potassium Chloride ER (Potassium Chloride) 10 Meq Tab 10 Meq PO DAILY Meloxicam 7.5 Mg Tab 7.5 Mg PO BID Lisinopril 20 Mg Tab 20 Mg PO DAILY Furosemide 20 Mg Tab 20 Mg PO DAILY Vitamin D-3 (Cholecalciferol) 1,000 Unit Tab 1,000 Units PO DAILY Aspirin 81 Mg Tabdr 81 Mg PO DAILY Allergies: Coded Allergies: Codeine (Verified Allergy, Severe, 06/06/16) sever n/v Demerol (Verified Allergy, Severe, 06/06/16) sever n/v Active Ordered Medications Current Medications Medications (Trade) Dose Ordered Sig/Alhaji Route Start Time Stop Time Status Last Admin (NS Flush) 2 ml UNSCH PRN FLUSH 06/23/16 20:00 (NS Flush) 2 ml BID FLUSH 06/23/16 21:00 (Lovenox Inj) 40 mg Q24H SQ 06/24/16 09:00 Naloxone HCl 0.4 mg 0.4 mg UNSCH PRN IV 06/23/16 20:00 (Levaquin 750 Mg Premix Inj) 150 ml @ 100 mls/hr Q24H IV 06/23/16 21:00 Family History Sister: DM Dad: SD Mom: SD, heart disease Social History Tobacco use: denies Alcohol use: socially Illicit drug use: denies Physical Exam Vital Signs Vital Signs Date Time Temp Pulse Resp B/P Pulse Ox O2 Delivery O2 Flow Rate FiO2 06/23/16 18:07 77 16 131/81 97 Room Air 06/23/16 13:55 69 16 140/93 95 Room Air 06/23/16 13:47 154/89 Physical Exam GENERAL: This is a weak, obese patient, in no apparent distress. SKIN: Excoriated sacral area, stage 1 ulcer HEAD: Atraumatic. Normocephalic. No temporal or scalp tenderness. EYES: Pupils equal round and reactive. ENT: Nose without bleeding, purulent drainage or septal hematoma. Airway patent. NECK: Trachea midline. No JVD CARDIOVASCULAR: Regular rate and rhythm without murmurs, gallops, or rubs. RESPIRATORY: Clear to auscultation. Breath sounds equal bilaterally. No wheezes , rales, or rhonchi. GASTROINTESTINAL: Abdomen soft, non-tender, nondistended. No hepato-splenomegaly , or palpable masses. No guarding. MUSCULOSKELETAL: Extremities without clubbing, cyanosis, or edema. No joint tenderness, effusion, or edema noted. No calf tenderness. NEUROLOGICAL: Awake and alert. Motor and sensory grossly within normal limits. Normal speech. Laboratory Laboratory Tests Test 06/23/16 06/23/16 15:25 17:20 White Blood Count 8.7 Red Blood Count 4.37 Hemoglobin 13.6 Hematocrit 41.0 Mean Corpuscular Volume 93.9 Mean Corpuscular Hemoglobin 31.2 Mean Corpuscular Hemoglobin 33.2 Concent Red Cell Distribution Width 15.4 Platelet Count 297 Mean Platelet Volume 10.2 Neutrophils (%) (Auto) 71.3 Lymphocytes (%) (Auto) 14.3 Monocytes (%) (Auto) 9.9 Eosinophils (%) (Auto) 3.8 Basophils (%) (Auto) 0.7 Neutrophils # (Auto) 6.2 Lymphocytes # (Auto) 1.2 Monocytes # (Auto) 0.9 Eosinophils # (Auto) 0.3 Basophils # (Auto) 0.1 CBC Comment DIFF FINAL Differential Comment Prothrombin Time 11.0 Prothromb Time International 1.0 Ratio Activated Partial 22.1 Thromboplast Time Sodium Level 141 Potassium Level 4.4 Chloride Level 108 Carbon Dioxide Level 26.7 Anion Gap 6 Blood Urea Nitrogen 11 Creatinine 0.72 Estimat Glomerular Filtration 80 Rate Random Glucose 76 Calcium Level 8.6 Magnesium Level 1.9 Total Bilirubin 0.6 Aspartate Amino Transf 43 (AST/SGOT) Alanine Aminotransferase 22 (ALT/SGPT) Alkaline Phosphatase 153 Total Creatine Kinase 122 Creatine Kinase MB 2.4 Troponin I LESS THAN 0.02 Total Protein 5.9 Albumin 1.9 Thyroid Stimulating Hormone 6.720 3rd Gen Urine Color YELLOW Urine Turbidity CLEAR Urine pH 5.5 Urine Specific [place] 1.028 Urine Protein TRACE Urine Glucose (UA) NEG Urine Ketones TRACE Urine Occult Blood NEG Urine Nitrite NEG Urine Bilirubin NEG Urine Urobilinogen 2.0 Urine Leukocyte Esterase MOD Urine RBC 5 Urine WBC 2 Urine Squamous Epithelial <1 Cells Urine Calcium Oxalate Crystals RARE Urine Bacteria RARE Urine Mucus FEW Microscopic Urinalysis Comment CATH-CULTURE IND Date/Time Procedure Status Source Growth 06/23/16 17:20 Urine Culture Received Urine Catheterized Urine Pending Result Diagram: 06/23/16 1525 06/23/16 1525 Imaging Last Impressions Chest X-Ray 06/23/16 1402 Signed Impressions: Service Date/Time: Thursday, June 23, 2016 14:13 - CONCLUSION: Normal examination. Elías Moreno MD Assessment and Plan Problem List: (1) Total self-care deficit ICD Code: R41.89 Status: Acute (2) UTI (urinary tract infection) ICD Code: N39.0 Status: Acute (3) Sacral pressure ulcer ICD Code: L89.159 Status: Acute (4) Loose stools ICD Code: R19.5 Status: Acute (5) Elevated TSH ICD Code: R94.6 Status: Acute (6) Arthritis ICD Code: M19.90 Status: Acute Assessment and Plan 70 y/o female with a history of obesity, arthritis, HTN and anxiety presented with: Total self care deficit -Case management consult for possible SNF placement UTI, culture on last admission grew klebsiella pneumonia Labs: UA shows -Levofloxacin IV -Urine culture pending Sacral pressure ulcer -Wound care consult for recommendations -Turn every Q2H Loose stools/Diarrhea -Cdiff ordered Elevated TSH Labs: TSH 6.7 -T3 and T4 pending Arthritis, chronic -Pain management with [place] PO DVT prophylaxis: Lovenox Written by Alayna ESCOBAR, acting as scribe for Dr. Wood on 06/23/16 at 2350. The documentation accurately reflects the work performed [id number] and decisions made by me and the physician Dr Wood on 06/23/16. The documentation accurately reflects the work performed [id number] by me on at 2350 Discussed Condition With Patient, RN and ED physician Problem Qualifiers (1) Sacral pressure ulcer: Qualified Code: L89.151 - Decubitus ulcer of sacral region, stage 1 Alayna Robles Jun 23, 2016 21:07 Juan Wood MD Jun 24, 2016 08:33
[2016-06-23] MEDS: SODIUM CHLORIDE 0.9% FLUSH 5 ML FLUSH FLUSH SCH (22:06)
[2016-06-23] MEDS ORDERED: ACETAMINOPHEN/HYDROcodone 325 MG/5 MG TAB PO PRN (22:30)
[2016-06-24 02:55] VITALS: BP 134/63; PULSE 79; RESP 16; TEMP 96.2; O2SAT 93
[2016-06-24 08:00] VITALS: BP 134/63; PULSE 79; PULSE 80; RESP 16; TEMP 96.2; O2SAT 93
[2016-06-24 08:40] LABS: AUTOMATED NEUTROPHIL # 4.3 TH/MM3 (1.8-7.7); BASOPHIL % 0.5 % (0.0-2.0); EOSINOPHIL # 0.4 TH/MM3 (0-0.4); EOSINOPHIL % 6.6 % (0.0-4.0); HEMATOCRIT 37.3 % (35.0-46.0); HEMO FLAGS DIFF FINAL; LYMPH % 16.9 % (9.0-44.0); LYMPHOCYTE # 1.1 TH/MM3 (1.0-4.8); MEAN CELL VOLUME 94.6 FL (80.0-100.0); MEAN CORPUSCULAR HEMOGLOBIN 31.3 PG (27.0-34.0); MEAN CORPUSCULAR HGB CONC 33.1 % (32.0-36.0); MONO % 10.2 % (0.0-8.0); NEUT % 65.8 % (16.0-70.0); PLATELET COUNT 233 TH/MM3 (150-450); RED BLOOD COUNT 3.94 MIL/MM3 (4.00-5.30); RED CELL DISTRIBUTION WIDTH 14.6 % (11.6-17.2); WHITE BLOOD COUNT 6.5 TH/MM3 (4.0-11.0)
[2016-06-24 08:54] LABS: BICARBONATE 25.9 MEQ/L (21.0-32.0); POTASSIUM 3.9 MEQ/L (3.5-5.1)
[2016-06-24] MEDS: SODIUM CHLORIDE 0.9% FLUSH 5 ML FLUSH FLUSH SCH ×2 (09:00→20:33)
--- NOTE | 2016-06-24 10:00 | HHI.PR ---
Subjective Remarks Follow-up for weakness and deconditioning. The patient states that she is doing well today. She states that she tried doing home physical therapy, but they haven't been coming off enough and she continues to get weak. She is unable to sit up or roll over without assistance now. She denies any chest pain , shortness breath, nausea, vomiting, constipation. She does have some chronic left hip and knee pain, unchanged. She denies any urinary burning or frequency. Agreeable for SNF placement. Objective Vitals Vital Signs Date Time Temp Pulse Resp B/P Pulse Ox O2 Delivery O2 Flow Rate FiO2 06/24/16 02:55 96.2 79 16 134/63 93 06/23/16 23:49 16 06/23/16 23:29 96.9 80 16 150/71 96 06/23/16 22:39 78 06/23/16 21:45 97.6 86 16 139/64 93 06/23/16 21:30 85 172/82 96 06/23/16 18:07 77 16 131/81 97 Room Air 06/23/16 13:55 69 16 140/93 95 Room Air 06/23/16 13:47 154/89 I/O 06/23/16 06/23/16 06/23/16 06/24/16 06/24/16 06/24/16 07:00 15:00 23:00 07:00 15:00 23:00 Output Total 250 ml Balance -250 ml Output Urine Total 250 ml # Bowel Movements 1 2 Result Diagram: 06/24/16 0806 06/24/16 0806 Imaging Last Impressions Chest X-Ray 06/23/16 1402 Signed Impressions: Service Date/Time: Thursday, June 23, 2016 14:13 - CONCLUSION: Normal examination. Elías Moreno MD Objective Remarks GENERAL: Well-developed well-nourished. Morbidly obese. In no acute distress. SKIN: Warm and dry. No lesions noted. HEENT: Normocephalic. Pupils equal and round. Mucous membranes pink and moist. CARDIOVASCULAR: Regular rate and rhythm. No murmur appreciated. RESPIRATORY: No accessory muscle use. Clear to auscultation. Breath sounds equal bilaterally. GASTROINTESTINAL: Abdomen soft, non-tender, nondistended. Bowel sounds x4. MUSCULOSKELETAL: No obvious deformities. No clubbing or cyanosis. No edema. NEUROLOGICAL: Awake and alert. No focal neurological deficits. Moves upper and lower extremities spontaneously. Normal speech. Strength 5/5 in upper extremities and 4/5 in lower extremities. PSYCHIATRIC: Appropriate mood and affect; insight and judgment normal. Urinary Catheter: Yes Assessment to: Remove Date of Insertion: Jun 23, 2016 A/P Problem List: (1) Total self-care deficit ICD Code: R41.89 Status: Acute (2) UTI (urinary tract infection) ICD Code: N39.0 Status: Acute (3) Sacral pressure ulcer ICD Code: L89.159 Status: Acute (4) Loose stools ICD Code: R19.5 Status: Acute (5) Elevated TSH ICD Code: R94.6 Status: Acute (6) Arthritis ICD Code: M19.90 Status: Acute Assessment and Plan 70 y/o female with a history of obesity, arthritis, HTN and anxiety presented with: Total self care deficit -Case management consult for SNF placement UTI, culture on last admission grew pansensitive klebsiella pneumonia Labs: UA with evidence of continued infection -Received Levofloxacin IV and IV Rocephin, continue oral Macrobid and follow-up urine culture -Remove Delcid catheter Sacral pressure ulcer -Wound care consulted, recommended barrier cream -Turn every Q2H Loose stools/Diarrhea None further today -Cdiff ordered if repeated loose stools Subclinical hypothyroidism: TSH mildly elevated at 6.72. T3 and T4 within normal limits. Repeat thyroid function test in 46 weeks as outpatient. Arthritis, chronic -Continue home meloxicam with GI protection for pain control DVT prophylaxis: Lovenox Written by Andrea Granados, acting as scribe for Dr. Yepez on 06/24/16 at 09:59. The documentation accurately reflects the work performed [id number] by me Dr. Yepez on 06/24/16 at 09:59. Discharge Planning Discharge to SNF when arranged Problem Qualifiers (1) Sacral pressure ulcer: Qualified Code: L89.151 - Decubitus ulcer of sacral region, stage 1 Andrea Granados Jun 24, 2016 10:00 Ludivina Yepez MD Jun 24, 2016 13:31
[2016-06-24] MEDS ORDERED: MACR100C2 PO (10:01)
[2016-06-24] MEDS: LISINOPRIL 20 MG TAB PO SCH (11:33)
[2016-06-24] MEDS: MELOXICAM 7.5 MG TAB PO SCH (11:34)
[2016-06-24] MEDS: ENOXAPARIN SODIUM 40 MG/0.4 ML SYRINGE SQ SCH (11:36)
[2016-06-24 16:00] VITALS: BP 147/69; PULSE 82; RESP 20; TEMP 98.3; O2SAT 95
--- NOTE | 2016-06-24 16:01 | EKG ---
Date Performed: 06/23/2016 Time Performed: 16:42:41 PTAGE: 70 years EKG: Sinus rhythm LEFT VENTRICULAR HYPERTROPHY AND ST-T CHANGE INFERIOR MYOCARDIAL INFARCTION Compared to prior tracin g no significant change ABNORMAL ECG INTERPRETATION BASED ON A DEFAULT AGE OF 40 YEARS PREVIOUS TRACING : 02/23/2016 17.55 DOCTOR: Hang Eugene Interpretating Date/Time 06/24/2016 15:57:33
[2016-06-24] MEDS: SERTRALINE HCL 100 MG TAB PO SCH (20:33)
[2016-06-24] MEDS: FAMOTIDINE 20 MG TAB PO SCH (20:33)
[2016-06-24] MEDS: NITROFURANTOIN MONOHYD MACROCR 100 MG CAP PO SCH (20:33)
[2016-06-24 21:43] VITALS: BP 120/56; PULSE 80; RESP 18; TEMP 97.2; O2SAT 90
[2016-06-25] VITALS (7 sets, daily range): BP systolic 130–161; BP diastolic 68–85; PULSE 74–88; RESP 18–21; TEMP 96.1–98.8; O2SAT 93–98
[2016-06-25] MEDS: ENOXAPARIN SODIUM 40 MG/0.4 ML SYRINGE SQ SCH (10:21)
[2016-06-25] MEDS: FUROSEMIDE 20 MG TAB PO SCH (10:22)
[2016-06-25] MEDS: MELOXICAM 7.5 MG TAB PO SCH ×2 (10:22→22:30)
[2016-06-25] MEDS: POTASSIUM CHLORIDE 10 MEQ CONTROLLED RELEASE TAB PO SCH (10:22)
[2016-06-25] MEDS: FAMOTIDINE 20 MG TAB PO SCH ×2 (10:22→22:30)
[2016-06-25] MEDS: LISINOPRIL 20 MG TAB PO SCH (10:27)
[2016-06-25] MEDS: NITROFURANTOIN MONOHYD MACROCR 100 MG CAP PO SCH (10:28)
[2016-06-25] MEDS: ASPIRIN EC 81 MG TABEC PO SCH (10:28)
[2016-06-25] MEDS: SODIUM CHLORIDE 0.9% FLUSH 5 ML FLUSH FLUSH SCH ×2 (10:28→21:00)
--- NOTE | 2016-06-25 12:40 | HHI.PR ---
Subjective Remarks Follow up for weakness, sacral ulcer, UTI. The patient complains of some diffuse chronic pains mostly in the hips, knees, ankles, worse throughout the left lower extremities, with generalized weakness. She states she's had this pain for years. She denies any low back pain. She does not recall ever having imaging done to evaluate her pains. She also reports subjective diminished sensation to light touch/pain such as scratching at her left anterior thigh. Objective Vitals Vital Signs Date Time Temp Pulse Resp B/P Pulse Ox O2 Delivery O2 Flow Rate FiO2 06/25/16 08:00 96.1 74 18 139/68 95 06/25/16 06:17 97.0 75 20 149/85 93 06/25/16 01:30 75 06/25/16 00:49 97.0 74 20 152/83 95 06/24/16 21:43 97.2 80 18 120/56 90 06/24/16 16:00 98.3 82 20 147/69 95 I/O 06/24/16 06/24/16 06/24/16 06/25/16 06/25/16 06/25/16 07:00 15:00 23:00 07:00 15:00 23:00 Intake Total 600 ml Output Total 250 ml Balance -250 ml 600 ml Intake Oral 600 ml IV Total 0 ml Output Urine Total 250 ml # Voids 3 1 # Bowel Movements 2 0 Result Diagram: 06/24/16 0806 06/24/16 0806 Imaging Last Impressions Chest X-Ray 06/23/16 1402 Signed Impressions: Service Date/Time: Thursday, June 23, 2016 14:13 - CONCLUSION: Normal examination. Elías Moreno MD Objective Remarks GENERAL: Well-nourished, well-developed pleasant morbidly obese female patient in [facility]. SKIN: Warm and dry. No rash. HEAD: Normocephalic. Atraumatic. EYES: Pupils equal and round. No scleral icterus. No injection or drainage. ENT: No nasal bleeding or discharge. Mucous membranes pink and moist. NECK: Supple. Trachea midline. CARDIOVASCULAR: Regular rate and rhythm. S1, S2 noted. No murmur appreciated. RESPIRATORY: No accessory muscle use. Clear to auscultation. Breath sounds equal bilaterally. GASTROINTESTINAL: Abdomen soft, non-tender, nondistended. Normoactive bowel sounds x4. MUSCULOSKELETAL: No obvious deformities. Extremities without clubbing, cyanosis , or edema. Left hip pain upon ROM. NEUROLOGICAL: Awake and alert. No obvious cranial nerve deficits. Motor grossly within normal limits. 5/5 muscle strength in bilateral upper and lower extremities. Normal speech. PSYCHIATRIC: Appropriate mood and affect; insight and judgment normal. Medications and IVs Current Medications Medications (Trade) Dose Ordered Sig/Alhaji Route Start Time Stop Time Status Last Admin (NS Flush) 2 ml UNSCH PRN FLUSH 06/23/16 20:00 (NS Flush) 2 ml BID FLUSH 06/23/16 21:00 06/25/16 10:28 (Lovenox Inj) 40 mg Q24H SQ 06/24/16 09:00 06/25/16 10:21 (Narcan Inj) 0.4 mg UNSCH PRN IV 06/23/16 20:00 (Norvasc) 10 mg DAILY PO 06/24/16 10:00 06/25/16 10:23 (Ecotrin Ec) 81 mg DAILY PO 06/25/16 09:00 06/25/16 10:28 (Pepcid) 20 mg BID PO 06/24/16 21:00 06/25/16 10:22 (Lasix) 20 mg DAILY PO 06/25/16 09:00 06/25/16 10:22 (Prinivil) 20 mg DAILY PO 06/24/16 10:00 06/25/16 10:27 (Mobic) 7.5 mg BID PO 06/24/16 21:00 06/25/16 10:22 (KCl) 10 meq DAILY PO 06/25/16 09:00 06/25/16 10:22 (Zoloft) 200 mg HS PO 06/24/16 21:00 06/24/16 20:33 (Benadryl) 25 mg Q6H PRN PO 06/25/16 18:00 Date of Insertion: Jun 23, 2016 A/P Problem List: (1) Total self-care deficit ICD Code: R41.89 Status: Acute (2) UTI (urinary tract infection) ICD Code: N39.0 Status: Acute (3) Sacral pressure ulcer ICD Code: L89.159 Status: Acute (4) Loose stools ICD Code: R19.5 Status: Acute (5) Elevated TSH ICD Code: R94.6 Status: Acute (6) Arthritis ICD Code: M19.90 Status: Acute Assessment and Plan 70 y/o female with a history of obesity, arthritis, HTN and anxiety presented with: Total self care deficit -Case management consult for SNF placement UTI, culture on last admission grew pansensitive klebsiella pneumonia Labs: UA with evidence of continued infection -Received Levofloxacin IV and IV Rocephin, was changed to oral Macrobid however patient developed rash therefore discontinued abx -urine culture with 10-50K mixed gram positive, probable contaminants, no need for abx. -Remove Delcid catheter Sacral pressure ulcer -Wound care consulted, recommended barrier cream -Turn every Q2H Loose stools/Diarrhea -None further today -Cdiff ordered if repeated loose stools Subclinical hypothyroidism: TSH mildly elevated at 6.72. T3 and T4 within normal limits. -Repeat thyroid function test in 46 weeks as outpatient. Arthritis, chronic -Continue home meloxicam with GI protection for pain control Left Hip Pain with Left Lumbar Radiculopathy: with numbness to left anterior thigh -check T-L Spine MRI -check left hip xray Rash: patient developed maculopapular rash throughout chest after starting macrobid. -stop macrobid -benadryl prn itching DVT prophylaxis: Lovenox Written by Pastora Dunham, acting as scribe for Dr. Miranda on 06/25/16 at 12: 40. Problem Qualifiers (1) Sacral pressure ulcer: Qualified Code: L89.151 - Decubitus ulcer of sacral region, stage 1 Pastora Dunham PA-C Jun 25, 2016 12:40 Larry Amato MD Jun 28, 2016 10:29
--- NOTE | 2016-06-25 21:07 | RADRPT ---
EXAM DATE/TIME: 06/25/2016 20:27 [facility] COMPARISON: No previous studies available for comparison. INDICATIONS : Left hip pain with no known injury. MEDICAL HISTORY : None. SURGICAL HISTORY : None. ENCOUNTER: Initial ACUITY: 4 - 6 days PAIN SCORE: 10/10 LOCATION: Left hip. FINDINGS: There is moderate to severe left hip osteoarthritis with extensive osteophytosis. 2.7 cm pedunculated osteophyte versus a joint body seen along the inferior margin of the left hip joint. No fracture or subluxation demonstrated. There is mild osteoarthritis of the right hip. CONCLUSION: Moderate to severe left hip' right is with considerable osteophytosis and an apparent large inferior joint body. No fracture or subluxation. Jeevan Arreola MD on June 25, 2016 at 21:04 Board Certified Radiologist. This report was verified electronically.
--- NOTE | 2016-06-25 21:26 | RADRPT ---
EXAM DATE/TIME: 06/25/2016 19:36 [facility] COMPARISON: No previous studies available for comparison. INDICATIONS : Pain. Leg weakness. MEDICAL HISTORY : Hypertension. SURGICAL HISTORY : Appendectomy. Cholecystectomy. section. Gastric bypass. ENCOUNTER: Initial ACUITY: 1 day PAIN SCORE: 8/10 LOCATION: Back. TECHNIQUE: Multiplanar multisequence MRI of the thoracic spine was performed. FINDINGS: There is mild dextroconvex curvature of the thoracic spine. No fracture or subluxation. Vertebral bod ies have normal height. No marrow edema seen. There is mild disc space narrowing and mild facet osteoarthritis essentially throughout. Tiny posteri or disc protrusions are seen at T3/T4, T4/T5 and T5/T6. No spinal stenosis. There is very mild left f oraminal encroachment at T8/T9 and T9/T10. Bilateral pleural effusions are present, tiny on the right and small on the left. CONCLUSION: 1. No fracture or subluxation of the thoracic spine. 2. Mild and fairly diffuse degenerative changes as above. 3. Mild left foraminal encroachment at T8/T9 and T9/T10. 4. No significant spinal stenosis at any level. 5. Incidentally seen tiny right and small left pleural effusions, nonspecific. Jeevan Arreola MD on June 25, 2016 at 21:22 Board Certified Radiologist. This report was verified electronically.
--- NOTE | 2016-06-25 21:40 | RADRPT ---
EXAM DATE/TIME: 06/25/2016 19:36 [facility] COMPARISON: No previous studies available for comparison. INDICATIONS : Pain. Bilateral leg weakness. MEDICAL HISTORY : Hypertension. SURGICAL HISTORY : Appendectomy. Cholecystectomy. section. Gastric bypass. ENCOUNTER: Initial ACUITY: 1 day PAIN SCORE: 7/10 LOCATION: Back. TECHNIQUE: Multiplanar multisequence MRI of the lumbar spine was performed without contrast. FINDINGS: Lumbar spine alignment is normal. Vertebral bodies have normal height. No marrow edema is seen. Conus terminates within normal limits, near the level of L1/L2. T12-L1: The thecal sac has a normal diameter. No evidence of disc bulge or protrusion. The neural foramina are patent bilaterally. L1-L2: The thecal sac has a normal diameter. No evidence of disc bulge or protrusion. The neural foramina are patent bilaterally. L2-L3: The disc is desiccated and has mild loss of height. There is a small, broad posterior disc protrusion and mild bilateral facet osteoarthritis. No significant foraminal or spinal stenosis. L3-L4: The disc is mildly desiccated and has mild loss of height. There is a small, broad posterior disc pro trusion and mild to moderate, bilateral facet osteoarthritis with thickening of the ligamentum flavum . 4 mm low density mass seen in the epidural space anterior to the lower portion of the left facet marla int, series 18 image 7. This may be a small osteophyte or a debris filled synovial cyst. There is mil d spinal stenosis without convincing evidence of transiting nerve root impingement. There is mild praful ateral foraminal encroachment. L4-L5: The disc is desiccated and has mild to moderate loss of height. Small to moderate, broad but especial ly left paracentral/foraminal disc protrusion present and there is moderate bilateral facet osteoarth ritis with thickening of the ligamentum flavum. There is mild to moderate spinal stenosis, primarily the left lateral recess, and probably mild mass effect/impingement on the transiting left L5 nerve ro ot. There is minimal left foraminal encroachment. L5-S1: The disc is desiccated but without significant loss of height. There is a small, broad disc osteophyt e complex and severe, bilateral facet osteoarthritis with thickening of the ligamentum flavum and hyp ertrophic bone. There is mild spinal stenosis without evidence of transiting nerve root impingement. There is mild/moderate bilateral foraminal stenosis. CONCLUSION: 1. Multilevel lumbar degenerative changes as detailed above. 2. Mild spinal stenosis at L3/L4 without evidence of transiting nerve root impingement. 3. Mild to moderate spinal stenosis at L4/L5 and possibly with mild mass effect/impingement on the tr ansiting left L5 nerve root within the subarticular recess. 4. Mild bilateral foraminal encroachment L3/L4 and L4/L5. Mild to moderate bilateral foraminal encroa chment at L5/S1. 5. No fracture or subluxation of the lumbar spine. Jeevan Arreola MD on June 25, 2016 at 21:29 Board Certified Radiologist. This report was verified electronically.
[2016-06-25] MEDS: SERTRALINE HCL 100 MG TAB PO SCH (22:30)
[2016-06-25] MEDS: diphenhydrAMINE HCL 25 MG CAP PO PRN (22:30)
[2016-06-26 04:42] VITALS: BP 150/71; PULSE 73; RESP 18; TEMP 98.8; O2SAT 97
[2016-06-26 09:11] VITALS: BP 151/69; PULSE 79; RESP 18; TEMP 97.1; O2SAT 93
[2016-06-26] MEDS: MELOXICAM 7.5 MG TAB PO SCH ×2 (10:27→21:54)
[2016-06-26] MEDS: LISINOPRIL 20 MG TAB PO SCH (10:27)
[2016-06-26] MEDS: SODIUM CHLORIDE 0.9% FLUSH 5 ML FLUSH FLUSH SCH ×2 (10:27→21:55)
[2016-06-26] MEDS: POTASSIUM CHLORIDE 10 MEQ CONTROLLED RELEASE TAB PO SCH (10:27)
[2016-06-26] MEDS: ASPIRIN EC 81 MG TABEC PO SCH (10:28)
[2016-06-26] MEDS: FAMOTIDINE 20 MG TAB PO SCH ×2 (10:28→21:54)
[2016-06-26] MEDS: diphenhydrAMINE HCL 25 MG CAP PO PRN ×2 (10:28→17:24)
[2016-06-26] MEDS: FUROSEMIDE 20 MG TAB PO SCH (10:28)
[2016-06-26] MEDS: ENOXAPARIN SODIUM 40 MG/0.4 ML SYRINGE SQ SCH (10:28)
[2016-06-26 12:39] VITALS: BP 170/74; PULSE 74; RESP 18; TEMP 96.8; O2SAT 93
--- NOTE | 2016-06-26 16:09 | HHI.PR ---
Subjective Remarks Follow up for generalized weakness, sacral ulcer, left hip pain. The patient reports continued left hip pain with numbness at the left anterior thigh. She denies any other medical complaints including no fever/chills or dysuria. Objective Vitals Vital Signs Date Time Temp Pulse Resp B/P Pulse Ox O2 Delivery O2 Flow Rate FiO2 06/26/16 12:39 96.8 74 18 170/74 93 06/26/16 09:11 97.1 79 18 151/69 93 06/26/16 04:42 98.8 73 18 150/71 97 06/25/16 21:27 98.8 81 21 130/81 98 I/O 06/25/16 06/25/16 06/25/16 06/26/16 06/26/16 06/26/16 07:00 15:00 23:00 07:00 15:00 23:00 Intake Total 900 ml Balance 900 ml Intake Oral 900 ml # Voids 1 4 # Bowel Movements 1 Result Diagram: 06/24/16 0806 06/24/16 0806 Imaging Last Impressions Thoracic Spine MRI 06/25/16 0000 Signed Impressions: Service Date/Time: June 19:36 - CONCLUSION: 1. No fracture or subluxation of the thoracic spine. 2. Mild and fairly diffuse degenerative changes as above. 3. Mild left foraminal encroachment at T8/T9 and T9/T10. 4. No significant spinal stenosis at any level. 5. Incidentally seen tiny right and small left pleural effusions, nonspecific. Jeevan Arreola MD Lumbar Spine MRI 06/25/16 0000 Signed Impressions: Service Date/Time: June 19:36 - CONCLUSION: 1. Multilevel lumbar degenerative changes as detailed above. 2. Mild spinal stenosis at L3/L4 without evidence of transiting nerve root impingement. 3. Mild to moderate spinal stenosis at L4/L5 and possibly with mild mass effect/impingement on the transiting left L5 nerve root within the subarticular recess. 4. Mild bilateral foraminal encroachment L3/L4 and L4/L5. Mild to moderate bilateral foraminal encroachment at L5/S1. 5. No fracture or subluxation of the lumbar spine. Jeevan Arreola MD Hip and Pelvis X-Ray 06/25/16 0000 Signed Impressions: Service Date/Time: June 20:27 - CONCLUSION: Moderate to severe left hip' right is with considerable osteophytosis and an apparent large inferior joint body. No fracture or subluxation. Jeevan Arreola MD Chest X-Ray 06/23/16 1402 Signed Impressions: Service Date/Time: Thursday, June 23, 2016 14:13 - CONCLUSION: Normal examination. Elías Moreno MD Objective Remarks GENERAL: Well-nourished, well-developed pleasant morbidly obese female patient in [facility]. SKIN: Warm and dry. No rash. HEAD: Normocephalic. Atraumatic. EYES: Pupils equal and round. No scleral icterus. No injection or drainage. ENT: No nasal bleeding or discharge. Mucous membranes pink and moist. NECK: Supple. Trachea midline. CARDIOVASCULAR: Regular rate and rhythm. S1, S2 noted. No murmur appreciated. RESPIRATORY: No accessory muscle use. Clear to auscultation. Breath sounds equal bilaterally. GASTROINTESTINAL: Abdomen soft, non-tender, nondistended. Normoactive bowel sounds x4. MUSCULOSKELETAL: No obvious deformities. Extremities without clubbing, cyanosis , or edema. Left hip pain upon ROM. NEUROLOGICAL: Awake and alert. No obvious cranial nerve deficits. Motor grossly within normal limits. 5/5 muscle strength in bilateral upper and lower extremities. Normal speech. PSYCHIATRIC: Appropriate mood and affect; insight and judgment normal. Medications and IVs Current Medications Medications (Trade) Dose Ordered Sig/Alhaji Route Start Time Stop Time Status Last Admin (NS Flush) 2 ml UNSCH PRN FLUSH 06/23/16 20:00 (NS Flush) 2 ml BID FLUSH 06/23/16 21:00 06/26/16 10:27 (Lovenox Inj) 40 mg Q24H SQ 06/24/16 09:00 06/26/16 10:28 (Narcan Inj) 0.4 mg UNSCH PRN IV 06/23/16 20:00 (Norvasc) 10 mg DAILY PO 06/24/16 10:00 06/26/16 10:27 (Ecotrin Ec) 81 mg DAILY PO 06/25/16 09:00 06/26/16 10:28 (Pepcid) 20 mg BID PO 06/24/16 21:00 06/26/16 10:28 (Lasix) 20 mg DAILY PO 06/25/16 09:00 06/26/16 10:28 (Prinivil) 20 mg DAILY PO 06/24/16 10:00 06/26/16 10:27 (Mobic) 7.5 mg BID PO 06/24/16 21:00 06/26/16 10:27 (KCl) 10 meq DAILY PO 06/25/16 09:00 06/26/16 10:27 (Zoloft) 200 mg HS PO 06/24/16 21:00 06/25/16 22:30 (Benadryl) 25 mg Q6H PRN PO 06/25/16 18:00 06/26/16 17:24 (Tylenol) 650 mg Q6H PRN PO 06/26/16 16:15 ([place] 5-325 Mg) 1 tab Q4H PRN PO 06/26/16 16:15 ([place] 7.5-325 Mg) 1 tab Q4H PRN PO 06/26/16 16:15 06/26/16 17:26 Urinary Catheter: No Date of Insertion: Jun 23, 2016 Vascular Central Line Catheter: No A/P Problem List: (1) Total self-care deficit ICD Code: R41.89 Status: Acute (2) UTI (urinary tract infection) ICD Code: N39.0 Status: Acute (3) Sacral pressure ulcer ICD Code: L89.159 Status: Acute (4) Loose stools ICD Code: R19.5 Status: Acute (5) Elevated TSH ICD Code: R94.6 Status: Acute (6) Arthritis ICD Code: M19.90 Status: Acute Assessment and Plan 70 y/o female with a history of obesity, arthritis, HTN and anxiety presented with: Total self care deficit -Case management consult for SNF placement UTI, culture on last admission grew pansensitive klebsiella pneumonia Labs: UA with evidence of continued infection -Received Levofloxacin IV and IV Rocephin, was changed to oral Macrobid however patient developed rash therefore discontinued abx -urine culture with 10-50K mixed gram positive, probable contaminants, no need for abx. -Remove Delcid catheter Sacral pressure ulcer -Wound care consulted, recommended barrier cream -Turn every Q2H Loose stools/Diarrhea -None further today -Cdiff ordered if repeated loose stools Subclinical hypothyroidism: TSH mildly elevated at 6.72. T3 and T4 within normal limits. -Repeat thyroid function test in 46 weeks as outpatient. Arthritis, chronic -Continue home meloxicam with GI protection for pain control Left Hip Pain with Left Lumbar Radiculopathy: with numbness to left anterior thigh -T-L Spine MRI showed mild spinal stenosis at L3-4, mild to moderate spinal stenosis at L4-5 and possibly with mild mass effect/impingement and transiting left L5 nerve root with subarticular recess -consult neurosurgery -left hip xray showed moderate to severe left hip osteoarthritis with considerable osteophytosis and apparent large inferior joint body, outpatient orthopedic follow-up Rash: patient developed maculopapular rash throughout chest after starting macrobid. -stop macrobid -benadryl prn itching -Rash improved DVT prophylaxis: Lovenox Written by Pastora Dunham, acting as scribe for Dr. Miranda on 06/26/16 at 16: 08. Attending Statement The documentation accurately reflects the work performed [id number] by me on at 16:08. Problem Qualifiers (1) Sacral pressure ulcer: Qualified Code: L89.151 - Decubitus ulcer of sacral region, stage 1 Pastora Dunham PA-C Jun 26, 2016 16:08 Larry Amato MD Jun 28, 2016 10:30
[2016-06-26] MEDS ORDERED: ACETAMINOPHEN 325 MG TAB PO PRN (16:15)
[2016-06-26 16:36] VITALS: BP 164/76; PULSE 73; RESP 19; TEMP 97.8; O2SAT 93
[2016-06-26] MEDS: ACETAMINOPHEN/HYDROcodone 325 MG/7.5 MG TAB PO PRN (17:26)
--- NOTE | 2016-06-26 19:28 | PD.CONS ---
History of Present Illness Service Neurosurgery Consult Requested By Medicine service Reason for Consult Lower extremity weakness, gait difficulty Primary Care Physician Unknown Diagnoses: History of Present Illness 70-year-old female with history of morbid obesity, hypertension who previously presented to the emergency room on 06/07/2016 after a fall at home in which she slid onto the floor, without apparent injury.. Patient has been in a wheelchair for approximately 6 months. She is complaining of increased weakness in the lower extremities for the past couple of weeks, not even able to sit on the side of the bed. She was evaluated by physical therapy at the time of her last visit and after medical clearance was discharged home with home physical therapy. She returned to the emergency room 06/26/2016 with persistent diffuse lower extremity weakness. She states that since her last hospital visit a couple of weeks ago, she has not been able to mobilize out of bed to a bedside commode and has had problems with bowel and bladder incontinence. Positive diarrhea. No nausea vomiting. No upper extremity pain which is numbness. Review of Systems Constitutional: DENIES: Fever, Weight gain, Chills Respiratory: DENIES: Cough, Shortness of breath Cardiovascular: DENIES: Chest pain, Palpitations Gastrointestinal: DENIES: Abdominal pain, Nausea, Vomiting Genitourinary: COMPLAINS OF: Urinary incontinence Musculoskeletal: COMPLAINS OF: Joint pain, Stiffness, Joint Swelling, DENIES: Back pain, Neck pain Integumentary: COMPLAINS OF: Pruritus Neurologic: COMPLAINS OF: Abnormal gait, Localized weakness, Paresthesias Psychiatric: DENIES: Anxiety, Confusion Past Family Social History Allergies: Coded Allergies: Codeine (Verified Allergy, Severe, 06/06/16) sever n/v Demerol (Verified Allergy, Severe, 06/06/16) sever n/v Past Medical History Obesity Hypertension Arthritis Anxiety disorder Past Surgical History 2 Appendectomy Cholecystectomy Gastric bypass Reported Medications Reported Meds & Active Scripts Active Macrobid (Nitrofurantoin Monoh/Nitrofur Macro) 100 Mg Cap 100 Mg PO BIDPC Cipro (Ciprofloxacin HCl) 250 Mg Tab 250 Mg PO BID Famotidine 20 Mg Tab 20 Mg PO BID Reported Amlodipine (Amlodipine Besylate) 10 Mg Tab 10 Mg PO DAILY Sertraline (Sertraline HCl) 100 Mg Tab 200 Mg PO HS Potassium Chloride ER (Potassium Chloride) 10 Meq Tab 10 Meq PO DAILY Meloxicam 7.5 Mg Tab 7.5 Mg PO BID Lisinopril 20 Mg Tab 20 Mg PO DAILY Furosemide 20 Mg Tab 20 Mg PO DAILY Vitamin D-3 (Cholecalciferol) 1,000 Unit Tab 1,000 Units PO DAILY Aspirin 81 Mg Tabdr 81 Mg PO DAILY Family History Diabetes in her sister. History of coronary artery disease in her mother and father Social History Does not smoke cigarettes or drink significant amounts of alcohol. No illicit drug use Physical Exam Vital Signs Vital Signs Date Time Temp Pulse Resp B/P Pulse Ox O2 Delivery O2 Flow Rate FiO2 06/26/16 16:36 97.8 73 19 164/76 93 06/26/16 12:39 96.8 74 18 170/74 93 06/26/16 09:11 97.1 79 18 151/69 93 06/26/16 04:42 98.8 73 18 150/71 97 06/25/16 21:27 98.8 81 21 130/81 98 Physical Exam GENERAL: Pleasant morbidly obese lady in no apparent distress during the examination. SKIN: No rashes, ecchymoses or lesions. Cool and dry. HEAD: Atraumatic. Normocephalic. No temporal or scalp tenderness. EYES: Sclerae are clear and nonicteric ENT: No facial edema or ecchymosis. NECK: Supple, nontender, no meningeal signs. Good shoulder range of motion without discomfort, normal cervical range of motion CARDIOVASCULAR: Regular rate and rhythm without murmurs, gallops, or rubs. RESPIRATORY: Clear to auscultation. Breath sounds equal bilaterally. No wheezes , rales, or rhonchi. GASTROINTESTINAL: Abdomen soft, non-tender, nondistended. No guarding. MUSCULOSKELETAL: Left greater than right significant hip and knee pain, increased with range of motion particularly on the left knee NEUROLOGICAL: Awake and alert Oriented conversant and appropriate Speech clear Answers questions appropriately and follows simple commands well Intact recent and remote memory Reasonable judgment and insight Extraocular movements and facial motor movements intact Sensation intact to light touch upper extremities and proximal lower extremities with moderate decreased sensation light touch distal lower extremities including the entire calf and foot bilateral Proprioception mild diminished in the feet Strength 5/5 throughout the upper extremities including hand intrinsics Lower extremity motor testing reveals 3/5 right and 2/5 left iliopsoas quadriceps and hamstrings with 5/5 bilateral tibialis anterior and posterior gastrocsoleus and peroneus longus and brevis. Brock's response absent bilateral No ankle clonus Plantar responses appear mildly extensor on the left greater than right Laboratory Date/Time Procedure Status Source Growth 06/23/16 17:20 Urine Culture - Final Complete Urine Catheterized Urine 10-50,000 CFU/ML MIXED GRAM POSITIVE ... Result Diagram: 06/24/16 0806 06/24/16 0806 Imaging 06/25/2016 MRI lumbar and thoracic spine images reviewed by the undersigned. Thoracic Spine MRI 06/25/16 0000 Signed Impressions: Service Date/Time: June 19:36 - CONCLUSION: 1. No fracture or subluxation of the thoracic spine. 2. Mild and fairly diffuse degenerative changes as above. 3. Mild left foraminal encroachment at T8/T9 and T9/T10. 4. No significant spinal stenosis at any level. 5. Incidentally seen tiny right and small left pleural effusions, nonspecific. Jeevan Arreola MD Lumbar Spine MRI 06/25/16 0000 Signed Impressions: Service Date/Time: June 19:36 - CONCLUSION: 1. Multilevel lumbar degenerative changes as detailed above. 2. Mild spinal stenosis at L3/L4 without evidence of transiting nerve root impingement. 3. Mild to moderate spinal stenosis at L4/L5 and possibly with mild mass effect/impingement on the transiting left L5 nerve root within the subarticular recess. 4. Mild bilateral foraminal encroachment L3/L4 and L4/L5. Mild to moderate bilateral foraminal encroachment at L5/S1. 5. No fracture or subluxation of the lumbar spine. Jeevan Arreola MD Hip and Pelvis X-Ray 06/25/16 0000 Signed Impressions: Service Date/Time: June 20:27 - CONCLUSION: Moderate to severe left hip' right is with considerable osteophytosis and an apparent large inferior joint body. No fracture or subluxation. Jeevan Arreola MD Chest X-Ray 06/23/16 1402 Signed Impressions: Service Date/Time: Thursday, June 23, 2016 14:13 - CONCLUSION: Normal examination. Elías Moreno MD Assessment and Plan Assessment and Plan Impression: 1. Lumbar spondylosis and degenerative disc disease with mostly moderate L4 5 stenosis, canal measuring approximately 4 x 9 mm 2. Proximal lower extremity paresis. 3. Mild findings suggestive of myelopathy with primarily proximal lower extremity motor deficit and mild extensor plantar responses Recommendations: Findings were discussed at length with the patient. The lumbar stenosis does not appear to definite account for the proximal upper extremity motor deficit and diffuse distal lower extremities sensory deficit. Due to question of mild myelopathy on examination, it is recommended that she proceed with MRI of the cervical and thoracic spine prior to further decision making regarding treatment. Deangelo Dennison MD Jun 26, 2016 19:28
[2016-06-26 20:00] VITALS: BP 129/61; PULSE 75; PULSE 80; RESP 16; TEMP 98; O2SAT 93
[2016-06-26] MEDS: SERTRALINE HCL 100 MG TAB PO SCH (21:55)
[2016-06-26] MEDS: ACETAMINOPHEN/HYDROcodone 325 MG/5 MG TAB PO PRN (21:56)
[2016-06-27] VITALS (10 sets, daily range): BP systolic 127–162; BP diastolic 60–72; PULSE 72–78; RESP 16–20; TEMP 97.1–98.3; O2SAT 92–94
[2016-06-27] MEDS: diphenhydrAMINE HCL 25 MG CAP PO PRN ×4 (00:45→22:24)
[2016-06-27] MEDS: SODIUM CHLORIDE 0.9% FLUSH 5 ML FLUSH FLUSH SCH ×2 (08:10→22:18)
[2016-06-27] MEDS: FUROSEMIDE 20 MG TAB PO SCH (08:11)
[2016-06-27] MEDS: ASPIRIN EC 81 MG TABEC PO SCH (08:11)
[2016-06-27] MEDS: LISINOPRIL 20 MG TAB PO SCH (08:11)
[2016-06-27] MEDS: FAMOTIDINE 20 MG TAB PO SCH ×2 (08:11→22:18)
[2016-06-27] MEDS: POTASSIUM CHLORIDE 10 MEQ CONTROLLED RELEASE TAB PO SCH (08:11)
[2016-06-27] MEDS: ENOXAPARIN SODIUM 40 MG/0.4 ML SYRINGE SQ SCH (08:11)
[2016-06-27] MEDS: MELOXICAM 7.5 MG TAB PO SCH ×2 (08:11→22:18)
[2016-06-27] MEDS: ACETAMINOPHEN/HYDROcodone 325 MG/7.5 MG TAB PO PRN ×3 (08:12→18:23)
--- NOTE | 2016-06-27 08:39 | HHI.PR ---
Subjective Remarks Follow-up for rash, lower extremity weakness, left hip pain. The patient reports continuing improvement of trunk and right arm rash. She states that it continues to itch, Benadryl does help. She continues report pain in her left hip, especially with movement, states the [place] helps. Eating well. Normal bowel movements. Urinary incontinence at baseline, no change. Objective Vitals Vital Signs Date Time Temp Pulse Resp B/P Pulse Ox O2 Delivery O2 Flow Rate FiO2 06/27/16 07:43 97.7 72 20 138/63 94 06/27/16 04:14 97.9 75 20 162/72 93 06/27/16 00:07 98.3 77 16 133/62 92 06/26/16 20:00 75 06/26/16 20:00 98.0 80 16 129/61 93 06/26/16 16:36 97.8 73 19 164/76 93 06/26/16 12:39 96.8 74 18 170/74 93 06/26/16 09:11 97.1 79 18 151/69 93 I/O 06/26/16 06/26/16 06/26/16 06/27/16 06/27/16 06/27/16 07:00 15:00 23:00 07:00 15:00 23:00 Intake Total 360 ml 240 ml Balance 360 ml 240 ml Intake Oral 360 ml 240 ml # Voids 1 1 # Bowel Movements 1 Result Diagram: 06/24/16 0806 06/24/16 0806 Imaging Last Impressions Thoracic Spine MRI 06/25/16 0000 Signed Impressions: Service Date/Time: June 19:36 - CONCLUSION: 1. No fracture or subluxation of the thoracic spine. 2. Mild and fairly diffuse degenerative changes as above. 3. Mild left foraminal encroachment at T8/T9 and T9/T10. 4. No significant spinal stenosis at any level. 5. Incidentally seen tiny right and small left pleural effusions, nonspecific. Jeevan Arreola MD Lumbar Spine MRI 06/25/16 0000 Signed Impressions: Service Date/Time: June 19:36 - CONCLUSION: 1. Multilevel lumbar degenerative changes as detailed above. 2. Mild spinal stenosis at L3/L4 without evidence of transiting nerve root impingement. 3. Mild to moderate spinal stenosis at L4/L5 and possibly with mild mass effect/impingement on the transiting left L5 nerve root within the subarticular recess. 4. Mild bilateral foraminal encroachment L3/L4 and L4/L5. Mild to moderate bilateral foraminal encroachment at L5/S1. 5. No fracture or subluxation of the lumbar spine. Jeevan Arreola MD Hip and Pelvis X-Ray 06/25/16 0000 Signed Impressions: Service Date/Time: June 20:27 - CONCLUSION: Moderate to severe left hip' right is with considerable osteophytosis and an apparent large inferior joint body. No fracture or subluxation. Jeevan Arreola MD Chest X-Ray 06/23/16 1402 Signed Impressions: Service Date/Time: Thursday, June 23, 2016 14:13 - CONCLUSION: Normal examination. Elías Moreno MD Objective Remarks GENERAL: Well-developed well-nourished. Morbidly obese. In no acute distress. SKIN: Warm and dry. Excoriations on right medial upper arm. Maculopapular rash on the upper abdomen. HEENT: Normocephalic. Pupils equal and round. Mucous membranes pink and moist. CARDIOVASCULAR: Regular rate and rhythm. No murmur appreciated. RESPIRATORY: No accessory muscle use. Clear to auscultation. Breath sounds equal bilaterally. GASTROINTESTINAL: Abdomen soft, non-tender, nondistended. Bowel sounds x4. MUSCULOSKELETAL: Pain with ROM of left hip. No clubbing or cyanosis. No edema. NEUROLOGICAL: Awake and alert. No focal neurological deficits. Moves upper and lower extremities spontaneously. Normal speech. Strength 5/5 in upper extremities and 4/5 in lower extremities. PSYCHIATRIC: Appropriate mood and affect; insight and judgment normal. Date of Insertion: Jun 23, 2016 A/P Problem List: (1) Total self-care deficit ICD Code: R41.89 Status: Acute (2) UTI (urinary tract infection) ICD Code: N39.0 Status: Acute (3) Sacral pressure ulcer ICD Code: L89.159 Status: Acute (4) Loose stools ICD Code: R19.5 Status: Acute (5) Elevated TSH ICD Code: R94.6 Status: Acute (6) Arthritis ICD Code: M19.90 Status: Acute Assessment and Plan 70 y/o female with a history of obesity, arthritis, HTN and anxiety presented with: Total self care deficit -Case management consult for SNF placement UTI, culture on last admission grew pansensitive klebsiella pneumonia Labs: UA with evidence of continued infection -Received Levofloxacin IV and IV Rocephin, was changed to oral Macrobid however patient developed rash therefore discontinued abx -urine culture with 10-50K mixed gram positive, probable contaminants, no need for abx. -Removed Delcid catheter Sacral pressure ulcer -Wound care consulted, recommended barrier cream -Turn every Q2H Loose stools/Diarrhea -No further episodes -Cdiff ordered if recurrence of loose stools Subclinical hypothyroidism: TSH mildly elevated at 6.72. T3 and T4 within normal limits. -Repeat thyroid function test in 46 weeks as outpatient. Arthritis, chronic -Continue home meloxicam with GI protection for pain control Left Hip Pain with Left Lumbar Radiculopathy: with numbness to left anterior thigh -T-L Spine MRI showed mild spinal stenosis at L3-4, mild to moderate spinal stenosis at L4-5 and possibly with mild mass effect/impingement and transiting left L5 nerve root with subarticular recess -consulted neurosurgery, ordered C-spine MRI -left hip xray showed moderate to severe left hip osteoarthritis with considerable osteophytosis and apparent large inferior joint body, pain control with oral [place], outpatient orthopedic follow-up Rash: patient developed maculopapular rash throughout chest after starting macrobid. -DC'd macrobid -benadryl prn itching -Caladryl lotion -Rash improving DVT prophylaxis: Lovenox Discharge Planning Follow neurosurgery recommendations. SNF at [place], case management arranging. Problem Qualifiers (1) Sacral pressure ulcer: Qualified Code: L89.151 - Decubitus ulcer of sacral region, stage 1 Andrea Granados Jun 27, 2016 08:39 Larry Amato MD Jun 28, 2016 10:31
--- NOTE | 2016-06-27 11:46 | RADRPT ---
EXAM DATE/TIME: 06/27/2016 11:09 [facility] COMPARISON: No previous studies available for comparison. INDICATIONS : Myelopathy. MEDICAL HISTORY : Hypertension. SURGICAL HISTORY : Cholecystectomy. Gastric bypass ENCOUNTER: Initial ACUITY: 1 day PAIN SCORE: 0/10 LOCATION: neck TECHNIQUE: Multiplanar, multisequence MRI examination of the cervical spine was performed. FINDINGS: VERTEBRAE: Normal vertebral body height. Homogeneous marrow signal, with the exception of vertebral body krissy iomas at multiple levels. Prominent endplate osteophytes are seen from C5-C7 greatest at C5. ALIGNMENT: No evidence of subluxation. CORD: Normal configuration and signal. POST FOSSA: The cerebellar tonsils are normal in position. C2-C3: The thecal sac has a normal configuration. There is no evidence of disc herniation or spinal canal s tenosis. The neural foramina are patent bilaterally. C3-C4: The thecal sac has a normal configuration. There is no evidence of disc herniation or spinal canal s tenosis. The neural foramina are patent bilaterally. C4-C5: The thecal sac has a normal configuration. There is no evidence of disc herniation or spinal canal s tenosis. The neural foramina are patent bilaterally. C5-C6: The thecal sac has a normal configuration. There is no evidence of disc herniation or spinal canal s tenosis. The neural foramina are patent bilaterally. C6-C7: The thecal sac has a normal configuration. There is no evidence of disc herniation or spinal canal s tenosis. The neural foramina are patent bilaterally. C7-T1: The thecal sac has a normal configuration. There is no evidence of disc herniation or spinal canal s tenosis. The neural foramina are patent bilaterally. CONCLUSION: Mild degenerative changes otherwise unremarkable cervical spine. Anselmo Leavitt MD on June 27, 2016 at 11:43 Board Certified Radiologist. This report was verified electronically.
[2016-06-27] MEDS: CALAMINE/PRAMOXINE LOTION 180 ML BTL TOPICAL SCH ×2 (14:54→22:19)
[2016-06-27] MEDS: SERTRALINE HCL 100 MG TAB PO SCH (22:19)
[2016-06-28 06:34] VITALS: BP 181/84; PULSE 72; RESP 18; TEMP 97.1; O2SAT 93
[2016-06-28 06:50] VITALS: BP 149/67
[2016-06-28] MEDS: FUROSEMIDE 20 MG TAB PO SCH (07:33)
[2016-06-28] MEDS: SODIUM CHLORIDE 0.9% FLUSH 5 ML FLUSH FLUSH SCH ×2 (07:33→20:59)
[2016-06-28] MEDS: ENOXAPARIN SODIUM 40 MG/0.4 ML SYRINGE SQ SCH (07:34)
[2016-06-28] MEDS: MELOXICAM 7.5 MG TAB PO SCH ×2 (07:34→21:00)
[2016-06-28] MEDS: POTASSIUM CHLORIDE 10 MEQ CONTROLLED RELEASE TAB PO SCH (07:34)
[2016-06-28] MEDS: LISINOPRIL 20 MG TAB PO SCH (07:34)
[2016-06-28] MEDS: diphenhydrAMINE HCL 25 MG CAP PO PRN ×3 (07:34→22:52)
[2016-06-28] MEDS: FAMOTIDINE 20 MG TAB PO SCH ×2 (07:34→21:00)
[2016-06-28] MEDS: ASPIRIN EC 81 MG TABEC PO SCH (07:34)
[2016-06-28] MEDS: CALAMINE/PRAMOXINE LOTION 180 ML BTL TOPICAL SCH ×2 (07:35→21:00)
[2016-06-28] MEDS: ACETAMINOPHEN/HYDROcodone 325 MG/7.5 MG TAB PO PRN ×3 (07:35→22:52)
[2016-06-28 07:39] VITALS: BP 137/79; PULSE 71; RESP 18; TEMP 97.1; O2SAT 93
--- NOTE | 2016-06-28 08:38 | HHI.PR ---
Subjective Remarks Follow-up for left hip pain, rash. The patient complains of continued left hip pain today. She states the pain medicine helps. She still has some itching of her rash, but states the rash is improving, and Benadryl and Caladryl lotion helped a lot. No acute complaints today. Objective Vitals Vital Signs Date Time Temp Pulse Resp B/P Pulse Ox O2 Delivery O2 Flow Rate FiO2 06/28/16 07:39 97.1 71 18 137/79 93 06/28/16 06:50 149/67 06/28/16 06:34 97.1 72 18 181/84 93 06/27/16 23:24 97.1 78 18 136/63 93 06/27/16 20:45 74 06/27/16 20:35 97.1 73 18 127/60 93 06/27/16 19:45 7 06/27/16 16:02 98.1 74 20 137/65 94 06/27/16 15:00 76 06/27/16 11:49 97.6 74 20 139/69 94 I/O 06/27/16 06/27/16 06/27/16 06/28/16 06/28/16 06/28/16 07:00 15:00 23:00 07:00 15:00 23:00 Intake Total 240 ml 1950 ml Output Total 1200 ml Balance 240 ml 750 ml Intake Oral 240 ml 750 ml IV Total 1200 ml Output Urine Total 1200 ml # Voids 1 Result Diagram: 06/24/16 0806 06/24/16 0806 Imaging Last Impressions Cervical Spine MRI 06/27/16 0000 Signed Impressions: Service Date/Time: Monday, June 27, 2016 11:09 - CONCLUSION: Mild degenerative changes otherwise unremarkable cervical spine. Anselmo Leavitt MD Thoracic Spine MRI 06/25/16 0000 Signed Impressions: Service Date/Time: June 19:36 - CONCLUSION: 1. No fracture or subluxation of the thoracic spine. 2. Mild and fairly diffuse degenerative changes as above. 3. Mild left foraminal encroachment at T8/T9 and T9/T10. 4. No significant spinal stenosis at any level. 5. Incidentally seen tiny right and small left pleural effusions, nonspecific. Jeevan Arreola MD Lumbar Spine MRI 06/25/16 0000 Signed Impressions: Service Date/Time: June 19:36 - CONCLUSION: 1. Multilevel lumbar degenerative changes as detailed above. 2. Mild spinal stenosis at L3/L4 without evidence of transiting nerve root impingement. 3. Mild to moderate spinal stenosis at L4/L5 and possibly with mild mass effect/impingement on the transiting left L5 nerve root within the subarticular recess. 4. Mild bilateral foraminal encroachment L3/L4 and L4/L5. Mild to moderate bilateral foraminal encroachment at L5/S1. 5. No fracture or subluxation of the lumbar spine. Jeevan Arreola MD Hip and Pelvis X-Ray 06/25/16 0000 Signed Impressions: Service Date/Time: June 20:27 - CONCLUSION: Moderate to severe left hip' right is with considerable osteophytosis and an apparent large inferior joint body. No fracture or subluxation. Jeevan Arreola MD Chest X-Ray 06/23/16 1402 Signed Impressions: Service Date/Time: Thursday, June 23, 2016 14:13 - CONCLUSION: Normal examination. Elías Moreno MD Objective Remarks GENERAL: Well-developed well-nourished. Morbidly obese. In no acute distress. SKIN: Warm and dry. Excoriations on right medial upper arm. Maculopapular rash on the upper abdomen. Improved erythema of the pannus with nystatin powder in place. HEENT: Normocephalic. Pupils equal and round. Mucous membranes pink and moist. CARDIOVASCULAR: Regular rate and rhythm. No murmur appreciated. RESPIRATORY: No accessory muscle use. Clear to auscultation. Breath sounds equal bilaterally. GASTROINTESTINAL: Abdomen soft, non-tender, nondistended. Bowel sounds x4. MUSCULOSKELETAL: Left lateral hip with area of induration and warmth when compared to right, no erythema or TTP. No clubbing or cyanosis. No edema. NEUROLOGICAL: Awake and alert. No focal neurological deficits. Moves upper and lower extremities spontaneously. Normal speech. PSYCHIATRIC: Appropriate mood and affect; insight and judgment normal. Date of Insertion: Jun 23, 2016 A/P Problem List: (1) Total self-care deficit ICD Code: R41.89 Status: Acute (2) UTI (urinary tract infection) ICD Code: N39.0 Status: Acute (3) Sacral pressure ulcer ICD Code: L89.159 Status: Acute (4) Loose stools ICD Code: R19.5 Status: Acute (5) Elevated TSH ICD Code: R94.6 Status: Acute (6) Arthritis ICD Code: M19.90 Status: Acute Assessment and Plan 70 y/o female with a history of obesity, arthritis, HTN and anxiety presented with: Total self care deficit -Case management consult for SNF placement UTI, culture on last admission grew pansensitive klebsiella pneumonia Labs: UA with evidence of continued infection -Received Levofloxacin IV and IV Rocephin, was changed to oral Macrobid however patient developed rash therefore discontinued abx -urine culture with 10-50K mixed gram positive, probable contaminants, no need for abx. -Removed Delcid catheter Sacral pressure ulcer -Wound care consulted, recommended barrier cream -Turn every Q2H Loose stools/Diarrhea -No further episodes -Cdiff ordered if recurrence of loose stools Subclinical hypothyroidism: TSH mildly elevated at 6.72. T3 and T4 within normal limits. -Repeat thyroid function test in 46 weeks as outpatient. Arthritis, chronic -Continue home meloxicam with GI protection for pain control Left Hip Pain with Left Lumbar Radiculopathy: with numbness to left anterior thigh -T-L Spine MRI showed mild spinal stenosis at L3-4, mild to moderate spinal stenosis at L4-5 and possibly with mild mass effect/impingement and transiting left L5 nerve root with subarticular recess -consulted neurosurgery, ordered C-spine MRI which just showed mild degenerative changes, discussed with Dr. Dennison, no intervention needed -left hip xray showed moderate to severe left hip osteoarthritis with considerable osteophytosis and apparent large inferior joint body, pain control with oral [place], outpatient orthopedic follow-up Rash: patient developed maculopapular rash throughout chest after starting macrobid. -DC'd macrobid -benadryl prn itching -Caladryl lotion -Rash improving Possible early cellulitis of left hip: Empiric Treatment with Keflex and Bactrim. DVT prophylaxis: Lovenox Written by Andrea Granados, acting as scribe for Dr. Miranda on 06/28/16 at 11:16. Discharge Planning DC to SNF when arranged. Attending Statement The documentation accurately reflects the work performed [id number] by me on at 11:16. Problem Qualifiers (1) Sacral pressure ulcer: Qualified Code: L89.151 - Decubitus ulcer of sacral region, stage 1 Andrea Granados Jun 28, 2016 08:37 Larry Amato MD Jul 05, 2016 08:58
[2016-06-28 11:46] VITALS: BP 116/59; PULSE 73; RESP 20; TEMP 98.2; O2SAT 94
--- NOTE | 2016-06-28 11:46 | HHI.NSPN ---
History Chief Complaint: left hip pain Interval History 70-year-old female complains of 2-3 weeks lower extremity weakness with intermittent numbness. Several weeks of left hip pain. Denies fevers or chills. System Review Comments Persistent left hip pain today Exam Results Vital Signs Date Time Temp Pulse Resp B/P Pulse Ox O2 Delivery O2 Flow Rate FiO2 06/28/16 07:39 97.1 71 18 137/79 93 Intake and Output 06/27/16 06/27/16 06/28/16 08:00 16:00 00:00 Intake Total 240 ml 1950 ml Output Total 1200 ml Balance 240 ml 750 ml Physical Examination Awake and alert Conversant and appropriate Speech is clear Recent and remote memory intact Follows commands well Sensation intact light touch upper and lower extremities Strength within normal limits upper extremities Motor testing lower extremities reveals 3+ right and 2/5 left iliopsoas and quadriceps with complaint of left hip pain with proximal left lower extremity motor testing. 5/5 bilateral tibialis anterior, gastrocsoleus, tibialis posterior,. His lungs brevis, extensor hallucis longus Church's response absent bilateral No ankle clonus Right thigh and lateral hip region soft tissues are soft, nontender. Left lateral hip and thigh soft tissue moderately edematous, firm, dimpled skin with mild erythema and significant tenderness to palpation. Lab, Micro, Other Results Cervical Spine MRI 06/27/16 0000 Signed Impressions: Service Date/Time: Monday, June 27, 2016 11:09 - CONCLUSION: Mild degenerative changes otherwise unremarkable cervical spine. Anselmo Leavitt MD Thoracic Spine MRI 06/25/16 0000 Signed Impressions: Service Date/Time: June 19:36 - CONCLUSION: 1. No fracture or subluxation of the thoracic spine. 2. Mild and fairly diffuse degenerative changes as above. 3. Mild left foraminal encroachment at T8/T9 and T9/T10. 4. No significant spinal stenosis at any level. 5. Incidentally seen tiny right and small left pleural effusions, nonspecific. Jeevan Arreola MD Lumbar Spine MRI 06/25/16 0000 Signed Impressions: Service Date/Time: June 19:36 - CONCLUSION: 1. Multilevel lumbar degenerative changes as detailed above. 2. Mild spinal stenosis at L3/L4 without evidence of transiting nerve root impingement. 3. Mild to moderate spinal stenosis at L4/L5 and possibly with mild mass effect/impingement on the transiting left L5 nerve root within the subarticular recess. 4. Mild bilateral foraminal encroachment L3/L4 and L4/L5. Mild to moderate bilateral foraminal encroachment at L5/S1. 5. No fracture or subluxation of the lumbar spine. Jeevan Arreola MD Hip and Pelvis X-Ray 06/25/16 0000 Signed Impressions: Service Date/Time: June 20:27 - CONCLUSION: Moderate to severe left hip' right is with considerable osteophytosis and an apparent large inferior joint body. No fracture or subluxation. Jeevan Arreola MD Chest X-Ray 06/23/16 1402 Signed Impressions: Service Date/Time: Thursday, June 23, 2016 14:13 - CONCLUSION: Normal examination. Elías Moreno MD Medical Decision Making Impression and Plan Impression: 1. Lumbar spondylosis and degenerative disc disease with relatively moderate L4 5 stenosis. 2. Severe progressive left hip pain. Moderately severe left hip osteoarthritis per x-ray results. 3. Probable early left thigh/hip cellulitis 4. No definite evidence of cauda equina syndrome or focal lumbar radiculopathy. There is no evidence of significant L1-L4 bilateral nerve compression on the patient's MRI to account for the proximal bilateral lower extremity weakness. Possible L5-S1 nerve impingement related to L4 5 stenosis, but no exam findings or symptoms of L5-S1 radiculopathy . Recommendations: Findings discussed with the patient as well as with medicine service. She will begin empiric antibiotic treatment for probable early left hip/thigh cellulitis. If no response, consider left hip MRI to rule out abscess or septic joint. No neurosurgical intervention planned at the present time. She can discharge when otherwise medically stable, with outpatient neurosurgery follow-up Deangelo Dennison MD Jun 28, 2016 11:46
[2016-06-28] MEDS: SULFAMETHOXAZOLE-TRIMETHOPRIM 400-80 MG TAB PO SCH ×2 (12:01→21:00)
[2016-06-28] MEDS: CEPHALEXIN MONOHYDRATE 250 MG CAP PO SCH ×2 (12:01→21:00)
[2016-06-28 15:19] VITALS: BP 138/63; PULSE 68; RESP 20; TEMP 98.2; O2SAT 92
[2016-06-28] MEDS: ACETAMINOPHEN/HYDROcodone 325 MG/5 MG TAB PO PRN (15:28)
[2016-06-28] MEDS: SERTRALINE HCL 100 MG TAB PO SCH (21:00)
[2016-06-28 21:20] VITALS: BP 137/64; PULSE 76; RESP 20; TEMP 98.4; O2SAT 93
[2016-06-29 01:22] VITALS: BP 129/64; PULSE 76; RESP 20; TEMP 98; O2SAT 93
[2016-06-29 05:28] VITALS: BP 146/66; PULSE 73; RESP 18; TEMP 98.1; O2SAT 93
[2016-06-29] MEDS: diphenhydrAMINE HCL 25 MG CAP PO PRN ×2 (06:16→15:55)
[2016-06-29] MEDS: CEPHALEXIN MONOHYDRATE 250 MG CAP PO SCH ×3 (06:16→20:37)
[2016-06-29] MEDS: ACETAMINOPHEN/HYDROcodone 325 MG/7.5 MG TAB PO PRN ×4 (06:16→20:38)
[2016-06-29 08:00] VITALS: BP 143/70; PULSE 78; RESP 20; TEMP 96.8; O2SAT 92
[2016-06-29] MEDS: LISINOPRIL 20 MG TAB PO SCH (08:53)
[2016-06-29] MEDS: POTASSIUM CHLORIDE 10 MEQ CONTROLLED RELEASE TAB PO SCH (08:53)
[2016-06-29] MEDS: FUROSEMIDE 20 MG TAB PO SCH (08:53)
[2016-06-29] MEDS: SULFAMETHOXAZOLE-TRIMETHOPRIM 400-80 MG TAB PO SCH ×2 (08:53→20:41)
[2016-06-29] MEDS: CALAMINE/PRAMOXINE LOTION 180 ML BTL TOPICAL SCH ×2 (08:54→20:38)
[2016-06-29] MEDS: FAMOTIDINE 20 MG TAB PO SCH ×2 (08:54→20:37)
[2016-06-29] MEDS: MELOXICAM 7.5 MG TAB PO SCH ×2 (08:54→20:37)
[2016-06-29] MEDS: ENOXAPARIN SODIUM 40 MG/0.4 ML SYRINGE SQ SCH (08:54)
[2016-06-29] MEDS: ASPIRIN EC 81 MG TABEC PO SCH (08:54)
[2016-06-29] MEDS: SODIUM CHLORIDE 0.9% FLUSH 5 ML FLUSH FLUSH SCH ×2 (08:55→20:41)
--- NOTE | 2016-06-29 09:39 | HHI.PR ---
Subjective Remarks Follow up for left hip pain, inability to ambulate, left hip cellulitis. The patient reports she has continued diffuse pain mostly at the left hip and down the left leg. Denies back pain. Denies fevers/chills. She is tolerating oral intake. Her rash is improving. She has no other medical complaints at this time. Objective Vitals Vital Signs Date Time Temp Pulse Resp B/P Pulse Ox O2 Delivery O2 Flow Rate FiO2 06/29/16 05:28 98.1 73 18 146/66 93 06/29/16 01:22 98.0 76 20 129/64 93 06/28/16 23:55 20 06/28/16 21:20 98.4 76 20 137/64 93 06/28/16 15:19 98.2 68 20 138/63 92 06/28/16 11:46 98.2 73 20 116/59 94 I/O 06/28/16 06/28/16 06/28/16 06/29/16 06/29/16 06/29/16 07:00 15:00 23:00 07:00 15:00 23:00 Intake Total 250 ml 750 ml Output Total 200 ml Balance 50 ml 750 ml Intake Oral 250 ml 750 ml Output Urine Total 200 ml Imaging Last Impressions Cervical Spine MRI 06/27/16 0000 Signed Impressions: Service Date/Time: Monday, June 27, 2016 11:09 - CONCLUSION: Mild degenerative changes otherwise unremarkable cervical spine. Anselmo Leavitt MD Thoracic Spine MRI 06/25/16 0000 Signed Impressions: Service Date/Time: June 19:36 - CONCLUSION: 1. No fracture or subluxation of the thoracic spine. 2. Mild and fairly diffuse degenerative changes as above. 3. Mild left foraminal encroachment at T8/T9 and T9/T10. 4. No significant spinal stenosis at any level. 5. Incidentally seen tiny right and small left pleural effusions, nonspecific. Jeevan Arreola MD Lumbar Spine MRI 06/25/16 0000 Signed Impressions: Service Date/Time: June 19:36 - CONCLUSION: 1. Multilevel lumbar degenerative changes as detailed above. 2. Mild spinal stenosis at L3/L4 without evidence of transiting nerve root impingement. 3. Mild to moderate spinal stenosis at L4/L5 and possibly with mild mass effect/impingement on the transiting left L5 nerve root within the subarticular recess. 4. Mild bilateral foraminal encroachment L3/L4 and L4/L5. Mild to moderate bilateral foraminal encroachment at L5/S1. 5. No fracture or subluxation of the lumbar spine. Jeevan Arreola MD Hip and Pelvis X-Ray 06/25/16 0000 Signed Impressions: Service Date/Time: June 20:27 - CONCLUSION: Moderate to severe left hip' right is with considerable osteophytosis and an apparent large inferior joint body. No fracture or subluxation. Jeevan Arreola MD Chest X-Ray 06/23/16 1402 Signed Impressions: Service Date/Time: Thursday, June 23, 2016 14:13 - CONCLUSION: Normal examination. Elías Moreno MD Objective Remarks GENERAL: Well-nourished, well-developed pleasant morbidly obese female patient in [facility]. SKIN: Warm and dry. Excoriations on right medial upper arm. Maculopapular rash on the upper abdomen. Improved erythema of the pannus with nystatin powder in place. HEAD: Normocephalic. Atraumatic. NECK: Supple. Trachea midline. CARDIOVASCULAR: Regular rate and rhythm. S1, S2 noted. No murmur appreciated. RESPIRATORY: No accessory muscle use. Clear to auscultation. Breath sounds equal bilaterally. GASTROINTESTINAL: Abdomen soft, non-tender, nondistended. Normoactive bowel sounds x4. MUSCULOSKELETAL: No obvious deformities. Bilateral lower extremities with chronic nonpitting edema, L worse than R. Left hip pain upon ROM. NEUROLOGICAL: Awake and alert. No obvious cranial nerve deficits. Motor grossly within normal limits. Normal speech. PSYCHIATRIC: Appropriate mood and affect; insight and judgment normal. Medications and IVs Current Medications Medications (Trade) Dose Ordered Sig/Alhaji Route Start Time Stop Time Status Last Admin (NS Flush) 2 ml UNSCH PRN FLUSH 06/23/16 20:00 (NS Flush) 2 ml BID FLUSH 06/23/16 21:00 06/29/16 08:55 (Lovenox Inj) 40 mg Q24H SQ 06/24/16 09:00 06/29/16 08:54 (Narcan Inj) 0.4 mg UNSCH PRN IV 06/23/16 20:00 (Norvasc) 10 mg DAILY PO 06/24/16 10:00 06/29/16 08:54 (Ecotrin Ec) 81 mg DAILY PO 06/25/16 09:00 06/29/16 08:54 (Pepcid) 20 mg BID PO 06/24/16 21:00 06/29/16 08:54 (Lasix) 20 mg DAILY PO 06/25/16 09:00 06/29/16 08:53 (Prinivil) 20 mg DAILY PO 06/24/16 10:00 06/29/16 08:53 (Mobic) 7.5 mg BID PO 06/24/16 21:00 06/29/16 08:54 (KCl) 10 meq DAILY PO 06/25/16 09:00 06/29/16 08:53 (Zoloft) 200 mg HS PO 06/24/16 21:00 06/28/16 21:00 (Benadryl) 25 mg Q6H PRN PO 06/25/16 18:00 06/29/16 06:16 (Tylenol) 650 mg Q6H PRN PO 06/26/16 16:15 ([place] 5-325 Mg) 1 tab Q4H PRN PO 06/26/16 16:15 06/28/16 15:28 ([place] 7.5-325 Mg) 1 tab Q4H PRN PO 06/26/16 16:15 06/29/16 06:16 (Caladryl Lotion) 1 applic Q12HR TOPICAL 06/27/16 09:00 06/29/16 08:54 (Bactrim 400-80 Mg) 1 tab Q12HR PO 06/28/16 12:00 06/29/16 08:53 (Keflex) 250 mg Q8HR PO 06/28/16 14:00 06/29/16 06:16 (ZyrTEC) 10 mg HS PO 06/29/16 21:00 (Deltasone) 40 mg DAILY PO 06/29/16 10:00 07/02/16 09:59 Urinary Catheter: No Date of Insertion: Jun 23, 2016 Vascular Central Line Catheter: No A/P Problem List: (1) Total self-care deficit ICD Code: R41.89 Status: Acute (2) UTI (urinary tract infection) ICD Code: N39.0 Status: Acute (3) Sacral pressure ulcer ICD Code: L89.159 Status: Acute (4) Loose stools ICD Code: R19.5 Status: Acute (5) Elevated TSH ICD Code: R94.6 Status: Acute (6) Arthritis ICD Code: M19.90 Status: Acute Assessment and Plan 70 y/o female with a history of obesity, arthritis, HTN and anxiety presented with: Total self care deficit -Case management consult for SNF placement UTI, culture on last admission grew pansensitive klebsiella pneumonia Labs: UA with evidence of continued infection -Received Levofloxacin IV and IV Rocephin, was changed to oral Macrobid however patient developed rash therefore discontinued abx -urine culture with 10-50K mixed gram positive, probable contaminants, no need for abx. -Removed Delcid catheter Sacral pressure ulcer -Wound care consulted, recommended barrier cream -Turn every Q2H Loose stools/Diarrhea -No further episodes -Cdiff ordered if recurrence of loose stools Subclinical hypothyroidism: TSH mildly elevated at 6.72. T3 and T4 within normal limits. -Repeat thyroid function test in 46 weeks as outpatient. Arthritis, chronic -Continue home meloxicam with GI protection for pain control Left Hip Pain with Left Lumbar Radiculopathy: with numbness to left anterior thigh -T-L Spine MRI showed mild spinal stenosis at L3-4, mild to moderate spinal stenosis at L4-5 and possibly with mild mass effect/impingement and transiting left L5 nerve root with subarticular recess -consulted neurosurgery, ordered C-spine MRI which just showed mild degenerative changes, discussed with Dr. Dennison, no intervention needed -left hip xray showed moderate to severe left hip osteoarthritis with considerable osteophytosis and apparent large inferior joint body, pain control with oral [place], outpatient orthopedic follow-up Rash: patient developed maculopapular rash throughout chest after starting macrobid. -DC'd macrobid -benadryl prn itching -Caladryl lotion -Rash improving -add Zyrtec hs and Prednisone 40mg daily x3days. Possible early cellulitis of left hip: Empiric Treatment with Keflex and Bactrim. Improving. LLE Edema: patient with chronic b/l lower extremity nonpitting edema however L worse than the R -check b/l doppler U/S DVT prophylaxis: Lovenox Written by Pastora Dunham, acting as scribe for Dr. Yepez on 06/29/16 at 09:36. The documentation accurately reflects the work performed [id number] by me Dr. Yepez on 06/29/16 at 09:36. Discharge Planning Can likely discharge to [facility] if doppler U/S unremarkable. Problem Qualifiers (1) Sacral pressure ulcer: Qualified Code: L89.151 - Decubitus ulcer of sacral region, stage 1 Pastora Dunham PA-C Jun 29, 2016 09:39 Ludivina Yepez MD Jun 29, 2016 18:48
[2016-06-29] MEDS: predniSONE 20 MG TAB PO SCH (10:49)
--- NOTE | 2016-06-29 11:03 | RADRPT ---
EXAM DATE/TIME: 06/29/2016 10:07 [place] COMPARISON: US LEG BILATERAL VENOUS DOPPLER, February 23, 2016, 12:08. INDICATIONS : Bilateral leg swelling and pain. MEDICAL HISTORY : Hypertension. Arthritis. SURGICAL HISTORY : Cholecystectomy. section. Gastric bypass. ENCOUNTER: Initial ACUITY: 1 day PAIN SCORE: 8/10 LOCATION: Bilateral legs. TECHNIQUE: Venous ultrasound of the left and right leg was performed from the inguinal ligament t o the proximal calf. Real-time, color Doppler and spectral tracing, compression and augmentation estefani hniques were used. FINDINGS: RIGHT LEG: There is normal compressibility of the deep venous system from the inguinal region to the proximal calf. No echogenic clot is seen in the lumen of the common femoral, femoral, popliteal, and posterior tibial veins. There is a normal response of the venous system to proximal and distal augmentation and respiration. LEFT LEG: There is normal compressibility of the deep venous system from the inguinal region to t he proximal calf. No echogenic clot is seen in the lumen of the common femoral, femoral, popliteal, and posterior tibial veins. There is a normal response of the venous system to proximal and distal a ugmentation and respiration. CONCLUSION: Negative for deep venous thrombosis. Alfredo Sanders MD FACR on June 29, 2016 at 10:59 Board Certified Radiologist. This report was verified electronically.
[2016-06-29 12:00] VITALS: BP 129/60; PULSE 75; RESP 20; TEMP 97.2; O2SAT 94
[2016-06-29] MEDS ORDERED: NORC5TAB PO (15:45)
[2016-06-29 16:00] VITALS: BP 143/88; PULSE 79; RESP 20; TEMP 96.4; O2SAT 93
[2016-06-29] MEDS: SERTRALINE HCL 100 MG TAB PO SCH (20:37)
[2016-06-29] MEDS: CETIRIZINE HCL 10 MG TAB PO SCH (20:37)
[2016-06-29 21:01] VITALS: BP 135/66; PULSE 81; RESP 18; TEMP 97.2; O2SAT 93
[2016-06-30 00:08] VITALS: BP 138/74; PULSE 75; RESP 18; TEMP 97.4; O2SAT 94
[2016-06-30] MEDS: diphenhydrAMINE HCL 25 MG CAP PO PRN ×3 (00:27→11:45)
[2016-06-30] MEDS: ACETAMINOPHEN/HYDROcodone 325 MG/7.5 MG TAB PO PRN ×5 (00:27→21:23)
[2016-06-30] MEDS: CEPHALEXIN MONOHYDRATE 250 MG CAP PO SCH ×3 (05:51→21:22)
[2016-06-30 06:18] VITALS: BP 147/70; PULSE 77; RESP 18; TEMP 97.1
[2016-06-30 07:22] VITALS: BP 123/63; PULSE 70; RESP 20; TEMP 98.7; O2SAT 93
[2016-06-30] MEDS: SULFAMETHOXAZOLE-TRIMETHOPRIM 400-80 MG TAB PO SCH ×2 (08:13→21:23)
[2016-06-30] MEDS: LISINOPRIL 20 MG TAB PO SCH (08:13)
[2016-06-30] MEDS: MELOXICAM 7.5 MG TAB PO SCH ×2 (08:13→21:23)
[2016-06-30] MEDS: ENOXAPARIN SODIUM 40 MG/0.4 ML SYRINGE SQ SCH (08:13)
[2016-06-30] MEDS: FAMOTIDINE 20 MG TAB PO SCH ×2 (08:14→21:23)
[2016-06-30] MEDS: POTASSIUM CHLORIDE 10 MEQ CONTROLLED RELEASE TAB PO SCH (08:14)
[2016-06-30] MEDS: ASPIRIN EC 81 MG TABEC PO SCH (08:14)
[2016-06-30] MEDS: SODIUM CHLORIDE 0.9% FLUSH 5 ML FLUSH FLUSH SCH ×2 (08:14→21:22)
[2016-06-30] MEDS: FUROSEMIDE 20 MG TAB PO SCH (08:14)
[2016-06-30] MEDS: predniSONE 20 MG TAB PO SCH (08:14)
[2016-06-30] MEDS: CALAMINE/PRAMOXINE LOTION 180 ML BTL TOPICAL SCH ×2 (08:15→21:24)
[2016-06-30 11:48] VITALS: BP 143/70; PULSE 76; RESP 20; TEMP 97.7; O2SAT 93
--- NOTE | 2016-06-30 14:16 | HHI.PR ---
Subjective Remarks Follow up for left hip pain, inability to ambulate, rash. The patient reports continued left hip pain, fairly well controlled with medications. Denies fevers/ chills. Still with pruritic rash. She is looking forward to going to rehab. Objective Vitals Vital Signs Date Time Temp Pulse Resp B/P Pulse Ox O2 Delivery O2 Flow Rate FiO2 06/30/16 11:48 97.7 76 20 143/70 93 06/30/16 07:22 98.7 70 20 123/63 93 06/30/16 06:18 97.1 77 18 147/70 06/30/16 00:08 97.4 75 18 138/74 94 06/29/16 21:01 97.2 81 18 135/66 93 06/29/16 16:00 96.4 79 20 143/88 93 I/O 06/29/16 06/29/16 06/29/16 06/30/16 06/30/16 06/30/16 07:00 15:00 23:00 07:00 15:00 23:00 Intake Total 600 ml Balance 600 ml Intake Oral 600 ml # Voids 2 Imaging Last Impressions Lower Extremity Ultrasound 06/29/16 0000 Signed Impressions: Service Date/Time: Wednesday, June 29, 2016 10:07 - CONCLUSION: Negative for deep venous thrombosis. Alfredo Sanders MD FACR Cervical Spine MRI 06/27/16 0000 Signed Impressions: Service Date/Time: Monday, June 27, 2016 11:09 - CONCLUSION: Mild degenerative changes otherwise unremarkable cervical spine. Anselmo Leavitt MD Thoracic Spine MRI 06/25/16 0000 Signed Impressions: Service Date/Time: June 19:36 - CONCLUSION: 1. No fracture or subluxation of the thoracic spine. 2. Mild and fairly diffuse degenerative changes as above. 3. Mild left foraminal encroachment at T8/T9 and T9/T10. 4. No significant spinal stenosis at any level. 5. Incidentally seen tiny right and small left pleural effusions, nonspecific. Jeevan Arreola MD Lumbar Spine MRI 06/25/16 0000 Signed Impressions: Service Date/Time: June 19:36 - CONCLUSION: 1. Multilevel lumbar degenerative changes as detailed above. 2. Mild spinal stenosis at L3/L4 without evidence of transiting nerve root impingement. 3. Mild to moderate spinal stenosis at L4/L5 and possibly with mild mass effect/impingement on the transiting left L5 nerve root within the subarticular recess. 4. Mild bilateral foraminal encroachment L3/L4 and L4/L5. Mild to moderate bilateral foraminal encroachment at L5/S1. 5. No fracture or subluxation of the lumbar spine. Jeevan Arreola MD Hip and Pelvis X-Ray 06/25/16 0000 Signed Impressions: Service Date/Time: June 20:27 - CONCLUSION: Moderate to severe left hip' right is with considerable osteophytosis and an apparent large inferior joint body. No fracture or subluxation. Jeevan Arreola MD Chest X-Ray 06/23/16 1402 Signed Impressions: Service Date/Time: Thursday, June 23, 2016 14:13 - CONCLUSION: Normal examination. Elías Moreno MD Objective Remarks GENERAL: Well-nourished, well-developed pleasant morbidly obese female patient in [facility]. SKIN: Warm and dry. Excoriations on right medial upper arm. Maculopapular rash on the upper abdomen. Improved erythema of the pannus with nystatin powder in place. HEAD: Normocephalic. Atraumatic. NECK: Supple. Trachea midline. CARDIOVASCULAR: Regular rate and rhythm. S1, S2 noted. No murmur appreciated. RESPIRATORY: No accessory muscle use. Clear to auscultation. Breath sounds equal bilaterally. GASTROINTESTINAL: Abdomen soft, non-tender, nondistended. Normoactive bowel sounds x4. MUSCULOSKELETAL: No obvious deformities. Bilateral lower extremities with chronic nonpitting edema, L worse than R. Left hip pain upon ROM. NEUROLOGICAL: Awake and alert. No obvious cranial nerve deficits. Motor grossly within normal limits. Normal speech. PSYCHIATRIC: Appropriate mood and affect; insight and judgment normal. Medications and IVs Current Medications Medications (Trade) Dose Ordered Sig/Alhaji Route Start Time Stop Time Status Last Admin (NS Flush) 2 ml UNSCH PRN FLUSH 06/23/16 20:00 (NS Flush) 2 ml BID FLUSH 06/23/16 21:00 06/29/16 08:55 (Lovenox Inj) 40 mg Q24H SQ 06/24/16 09:00 06/30/16 08:13 (Narcan Inj) 0.4 mg UNSCH PRN IV 06/23/16 20:00 (Norvasc) 10 mg DAILY PO 06/24/16 10:00 06/30/16 08:13 (Ecotrin Ec) 81 mg DAILY PO 06/25/16 09:00 06/30/16 08:14 (Pepcid) 20 mg BID PO 06/24/16 21:00 06/30/16 08:14 (Lasix) 20 mg DAILY PO 06/25/16 09:00 06/30/16 08:14 (Prinivil) 20 mg DAILY PO 06/24/16 10:00 06/30/16 08:13 (Mobic) 7.5 mg BID PO 06/24/16 21:00 06/30/16 08:13 (KCl) 10 meq DAILY PO 06/25/16 09:00 06/30/16 08:14 (Zoloft) 200 mg HS PO 06/24/16 21:00 06/29/16 20:37 (Tylenol) 650 mg Q6H PRN PO 06/26/16 16:15 ([place] 5-325 Mg) 1 tab Q4H PRN PO 06/26/16 16:15 06/28/16 15:28 ([place] 7.5-325 Mg) 1 tab Q4H PRN PO 06/26/16 16:15 06/30/16 11:45 (Caladryl Lotion) 1 applic Q12HR TOPICAL 06/27/16 09:00 06/30/16 08:15 (Bactrim 400-80 Mg) 1 tab Q12HR PO 06/28/16 12:00 06/30/16 08:13 (Keflex) 250 mg Q8HR PO 06/28/16 14:00 06/30/16 14:07 (ZyrTEC) 10 mg HS PO 06/29/16 21:00 06/29/16 20:37 (Deltasone) 40 mg DAILY PO 06/29/16 10:00 07/02/16 09:59 06/30/16 08:14 (Atarax) 10 mg Q6H PRN PO 06/30/16 14:15 Urinary Catheter: No Date of Insertion: Jun 23, 2016 Vascular Central Line Catheter: No A/P Problem List: (1) Total self-care deficit ICD Code: R41.89 Status: Acute (2) UTI (urinary tract infection) ICD Code: N39.0 Status: Acute (3) Sacral pressure ulcer ICD Code: L89.159 Status: Acute (4) Loose stools ICD Code: R19.5 Status: Acute (5) Elevated TSH ICD Code: R94.6 Status: Acute (6) Arthritis ICD Code: M19.90 Status: Acute Assessment and Plan 70 y/o female with a history of obesity, arthritis, HTN and anxiety presented with: Total self care deficit -Case management consult for SNF placement UTI, culture on last admission grew pansensitive klebsiella pneumonia Labs: UA with evidence of continued infection -Received Levofloxacin IV and IV Rocephin, was changed to oral Macrobid however patient developed rash therefore discontinued abx -urine culture with 10-50K mixed gram positive, probable contaminants, no need for abx. -Removed Delcid catheter Sacral pressure ulcer -Wound care consulted, recommended barrier cream -Turn every Q2H Loose stools/Diarrhea -No further episodes -Cdiff ordered if recurrence of loose stools Subclinical hypothyroidism: TSH mildly elevated at 6.72. T3 and T4 within normal limits. -Repeat thyroid function test in 46 weeks as outpatient. Arthritis, chronic -Continue home meloxicam with GI protection for pain control Left Hip Pain with Left Lumbar Radiculopathy: with numbness to left anterior thigh -T-L Spine MRI showed mild spinal stenosis at L3-4, mild to moderate spinal stenosis at L4-5 and possibly with mild mass effect/impingement and transiting left L5 nerve root with subarticular recess -consulted neurosurgery, ordered C-spine MRI which just showed mild degenerative changes, discussed with Dr. Dennison, no intervention needed -left hip xray showed moderate to severe left hip osteoarthritis with considerable osteophytosis and apparent large inferior joint body, pain control with oral [place], outpatient orthopedic follow-up Rash: patient developed maculopapular rash throughout chest after starting macrobid. -DC'd macrobid -benadryl prn itching -Caladryl lotion -Rash improving - added Zyrtec hs and Prednisone 40mg daily x3days. - benadryl isn't helping with the pruritus, changed to atarax 10mg po q6h prn Possible early cellulitis of left hip: Empiric Treatment with Keflex and Bactrim. Improving. LLE Edema: patient with chronic b/l lower extremity nonpitting edema however L worse than the R - b/l doppler U/S negative for DVT DVT prophylaxis: Lovenox Written by Pastora Dunham, acting as scribe for Dr. Yepez on 06/30/16 at 14:13. The documentation accurately reflects the work performed [id number] by me Dr. Yepez on 06/30/16 at 14:13. Discharge Planning Can discharge to [facility] when arranged. Problem Qualifiers (1) Sacral pressure ulcer: Qualified Code: L89.151 - Decubitus ulcer of sacral region, stage 1 Pastora Dunham PA-C Jun 30, 2016 14:16 Ludivina Yepez MD Jun 30, 2016 17:13
[2016-06-30 15:35] VITALS: BP 126/67; PULSE 79; RESP 20; TEMP 97.7; O2SAT 93
[2016-06-30] MEDS: hydrOXYzine HCL 10 MG TAB PO PRN ×2 (16:53→21:23)
[2016-06-30 20:09] VITALS: BP 140/75; PULSE 79; RESP 18; TEMP 97.2; O2SAT 93
[2016-06-30] MEDS: SERTRALINE HCL 100 MG TAB PO SCH (21:23)
[2016-06-30] MEDS: CETIRIZINE HCL 10 MG TAB PO SCH (21:23)
[2016-07-01] VITALS (7 sets, daily range): BP systolic 134–181; BP diastolic 63–92; PULSE 71–80; RESP 18–20; TEMP 96.2–98; O2SAT 90–95
[2016-07-01] MEDS: CEPHALEXIN MONOHYDRATE 250 MG CAP PO SCH ×3 (05:38→20:35)
[2016-07-01] MEDS: hydrOXYzine HCL 10 MG TAB PO PRN ×3 (05:38→20:35)
[2016-07-01] MEDS: ACETAMINOPHEN/HYDROcodone 325 MG/7.5 MG TAB PO PRN ×3 (05:38→20:36)
[2016-07-01] MEDS: ASPIRIN EC 81 MG TABEC PO SCH (09:00)
[2016-07-01] MEDS: LISINOPRIL 20 MG TAB PO SCH (09:00)
[2016-07-01] MEDS: POTASSIUM CHLORIDE 10 MEQ CONTROLLED RELEASE TAB PO SCH (09:00)
[2016-07-01] MEDS: ENOXAPARIN SODIUM 40 MG/0.4 ML SYRINGE SQ SCH (09:00)
[2016-07-01] MEDS: FUROSEMIDE 20 MG TAB PO SCH (09:00)
[2016-07-01] MEDS: MELOXICAM 7.5 MG TAB PO SCH ×2 (09:01→20:35)
[2016-07-01] MEDS: FAMOTIDINE 20 MG TAB PO SCH ×2 (09:01→20:35)
[2016-07-01] MEDS: predniSONE 20 MG TAB PO SCH (09:01)
[2016-07-01] MEDS: SODIUM CHLORIDE 0.9% FLUSH 5 ML FLUSH FLUSH SCH ×2 (09:01→20:37)
[2016-07-01] MEDS: SULFAMETHOXAZOLE-TRIMETHOPRIM 400-80 MG TAB PO SCH ×2 (09:01→20:35)
[2016-07-01] MEDS: CALAMINE/PRAMOXINE LOTION 180 ML BTL TOPICAL SCH ×2 (09:02→20:37)
--- NOTE | 2016-07-01 10:14 | HHI.PR ---
Subjective Remarks Follow up for left hip pain, inability to ambulate, rash. The patient states her rash is improving, less pruritic today. No fevers/chills. Still with left hip pain, well controlled with medications. Looking forward to rehab. Objective Vitals Vital Signs Date Time Temp Pulse Resp B/P Pulse Ox O2 Delivery O2 Flow Rate FiO2 07/01/16 07:31 96.7 71 18 144/92 93 07/01/16 05:48 97.1 78 18 148/72 93 07/01/16 01:15 97.1 75 18 172/81 92 06/30/16 20:09 97.2 79 18 140/75 93 06/30/16 17:52 20 06/30/16 15:35 97.7 79 20 126/67 93 06/30/16 11:48 97.7 76 20 143/70 93 Imaging Last Impressions Lower Extremity Ultrasound 06/29/16 0000 Signed Impressions: Service Date/Time: Wednesday, June 29, 2016 10:07 - CONCLUSION: Negative for deep venous thrombosis. Alfredo Sanders MD FACR Cervical Spine MRI 06/27/16 0000 Signed Impressions: Service Date/Time: Monday, June 27, 2016 11:09 - CONCLUSION: Mild degenerative changes otherwise unremarkable cervical spine. Anselmo Leavitt MD Thoracic Spine MRI 06/25/16 0000 Signed Impressions: Service Date/Time: June 19:36 - CONCLUSION: 1. No fracture or subluxation of the thoracic spine. 2. Mild and fairly diffuse degenerative changes as above. 3. Mild left foraminal encroachment at T8/T9 and T9/T10. 4. No significant spinal stenosis at any level. 5. Incidentally seen tiny right and small left pleural effusions, nonspecific. Jeevan Arreola MD Lumbar Spine MRI 06/25/16 0000 Signed Impressions: Service Date/Time: June 19:36 - CONCLUSION: 1. Multilevel lumbar degenerative changes as detailed above. 2. Mild spinal stenosis at L3/L4 without evidence of transiting nerve root impingement. 3. Mild to moderate spinal stenosis at L4/L5 and possibly with mild mass effect/impingement on the transiting left L5 nerve root within the subarticular recess. 4. Mild bilateral foraminal encroachment L3/L4 and L4/L5. Mild to moderate bilateral foraminal encroachment at L5/S1. 5. No fracture or subluxation of the lumbar spine. Jeevan Arreola MD Hip and Pelvis X-Ray 06/25/16 0000 Signed Impressions: Service Date/Time: June 20:27 - CONCLUSION: Moderate to severe left hip' right is with considerable osteophytosis and an apparent large inferior joint body. No fracture or subluxation. Jeevan Arreola MD Chest X-Ray 06/23/16 1402 Signed Impressions: Service Date/Time: Thursday, June 23, 2016 14:13 - CONCLUSION: Normal examination. Elías Moreno MD Objective Remarks GENERAL: Well-nourished, well-developed pleasant morbidly obese female patient in [facility]. SKIN: Warm and dry. Excoriations on right medial upper arm. Maculopapular rash on the upper abdomen. Improved erythema of the pannus with nystatin powder in place. HEAD: Normocephalic. Atraumatic. NECK: Supple. Trachea midline. CARDIOVASCULAR: Regular rate and rhythm. S1, S2 noted. No murmur appreciated. RESPIRATORY: No accessory muscle use. Clear to auscultation. Breath sounds equal bilaterally. GASTROINTESTINAL: Abdomen soft, non-tender, nondistended. Normoactive bowel sounds x4. MUSCULOSKELETAL: No obvious deformities. Bilateral lower extremities with chronic nonpitting edema, L worse than R, overall improving. Left hip pain upon ROM. NEUROLOGICAL: Awake and alert. No obvious cranial nerve deficits. Motor grossly within normal limits. Normal speech. PSYCHIATRIC: Appropriate mood and affect; insight and judgment normal. Medications and IVs Current Medications Medications (Trade) Dose Ordered Sig/Alhaji Route Start Time Stop Time Status Last Admin (NS Flush) 2 ml UNSCH PRN FLUSH 06/23/16 20:00 (NS Flush) 2 ml BID FLUSH 06/23/16 21:00 07/01/16 09:01 (Lovenox Inj) 40 mg Q24H SQ 06/24/16 09:00 07/01/16 09:00 (Narcan Inj) 0.4 mg UNSCH PRN IV 06/23/16 20:00 (Norvasc) 10 mg DAILY PO 06/24/16 10:00 07/01/16 09:00 (Ecotrin Ec) 81 mg DAILY PO 06/25/16 09:00 07/01/16 09:00 (Pepcid) 20 mg BID PO 06/24/16 21:00 07/01/16 09:01 (Lasix) 20 mg DAILY PO 06/25/16 09:00 07/01/16 09:00 (Prinivil) 20 mg DAILY PO 06/24/16 10:00 07/01/16 09:00 (Mobic) 7.5 mg BID PO 06/24/16 21:00 07/01/16 09:01 (KCl) 10 meq DAILY PO 06/25/16 09:00 07/01/16 09:00 (Zoloft) 200 mg HS PO 06/24/16 21:00 06/30/16 21:23 (Tylenol) 650 mg Q6H PRN PO 06/26/16 16:15 ([place] 5-325 Mg) 1 tab Q4H PRN PO 06/26/16 16:15 06/28/16 15:28 ([place] 7.5-325 Mg) 1 tab Q4H PRN PO 06/26/16 16:15 07/01/16 11:49 (Caladryl Lotion) 1 applic Q12HR TOPICAL 06/27/16 09:00 07/01/16 09:02 (Bactrim 400-80 Mg) 1 tab Q12HR PO 06/28/16 12:00 07/01/16 09:01 (Keflex) 250 mg Q8HR PO 06/28/16 14:00 07/01/16 14:05 (ZyrTEC) 10 mg HS PO 06/29/16 21:00 06/30/16 21:23 (Deltasone) 40 mg DAILY PO 06/29/16 10:00 07/02/16 09:59 07/01/16 09:01 (Atarax) 10 mg Q6H PRN PO 06/30/16 14:15 07/01/16 11:49 Date of Insertion: Jun 23, 2016 A/P Problem List: (1) Total self-care deficit ICD Code: R41.89 Status: Acute (2) UTI (urinary tract infection) ICD Code: N39.0 Status: Acute (3) Sacral pressure ulcer ICD Code: L89.159 Status: Acute (4) Loose stools ICD Code: R19.5 Status: Acute (5) Elevated TSH ICD Code: R94.6 Status: Acute (6) Arthritis ICD Code: M19.90 Status: Acute Assessment and Plan 70 y/o female with a history of obesity, arthritis, HTN and anxiety presented with: Total self care deficit -Case management consult for SNF placement UTI, culture on last admission grew pansensitive klebsiella pneumonia Labs: UA with evidence of continued infection -Received Levofloxacin IV and IV Rocephin, was changed to oral Macrobid however patient developed rash therefore discontinued abx -urine culture with 10-50K mixed gram positive, probable contaminants, no need for abx. -Removed Delcid catheter Sacral pressure ulcer -Wound care consulted, recommended barrier cream -Turn every Q2H Loose stools/Diarrhea -No further episodes -Cdiff ordered if recurrence of loose stools Subclinical hypothyroidism: TSH mildly elevated at 6.72. T3 and T4 within normal limits. -Repeat thyroid function test in 46 weeks as outpatient. Arthritis, chronic -Continue home meloxicam with GI protection for pain control Left Hip Pain with Left Lumbar Radiculopathy: with numbness to left anterior thigh -T-L Spine MRI showed mild spinal stenosis at L3-4, mild to moderate spinal stenosis at L4-5 and possibly with mild mass effect/impingement and transiting left L5 nerve root with subarticular recess -consulted neurosurgery, ordered C-spine MRI which just showed mild degenerative changes, discussed with Dr. Dennison, no intervention needed -left hip xray showed moderate to severe left hip osteoarthritis with considerable osteophytosis and apparent large inferior joint body, pain control with oral [place], outpatient orthopedic follow-up Rash: patient developed maculopapular rash throughout chest after starting macrobid. -DC'd macrobid -benadryl prn itching -Caladryl lotion -Rash improving - added Zyrtec hs and Prednisone 40mg daily x3days. - benadryl isn't helping with the pruritus, changed to atarax 10mg po q6h prn Possible early cellulitis of left hip: Empiric Treatment with Keflex and Bactrim. Improving. LLE Edema: patient with chronic b/l lower extremity nonpitting edema however L worse than the R - b/l doppler U/S negative for DVT DVT prophylaxis: Lovenox Written by Pastora Dunham, acting as scribe for Dr. Yepez on 07/01/16 at 10:13. The documentation accurately reflects the work performed [id number] by me Dr. Yepez on 07/01/16 at 10:13. Discharge Planning Can discharge to [facility] when arranged. Problem Qualifiers (1) Sacral pressure ulcer: Qualified Code: L89.151 - Decubitus ulcer of sacral region, stage 1 Pastora Dunham PA-C Jul 01, 2016 10:14 Ludivina Yepez MD Jul 01, 2016 17:29
[2016-07-01] MEDS: CETIRIZINE HCL 10 MG TAB PO SCH (20:36)
[2016-07-01] MEDS: SERTRALINE HCL 100 MG TAB PO SCH (20:36)
[2016-07-02 00:27] VITALS: BP 150/74; PULSE 76; RESP 20; TEMP 97.6; O2SAT 95
[2016-07-02] MEDS: ACETAMINOPHEN/HYDROcodone 325 MG/7.5 MG TAB PO PRN ×5 (01:39→21:19)
[2016-07-02] MEDS: hydrOXYzine HCL 10 MG TAB PO PRN ×2 (01:40→11:03)
[2016-07-02 04:35] VITALS: BP 158/90; PULSE 70; RESP 20; TEMP 97.6; O2SAT 95
[2016-07-02] MEDS: CEPHALEXIN MONOHYDRATE 250 MG CAP PO SCH ×3 (06:00→21:18)
[2016-07-02] MEDS: SODIUM CHLORIDE 0.9% FLUSH 5 ML FLUSH FLUSH SCH ×2 (09:00→21:00)
[2016-07-02 09:29] VITALS: BP 172/76; PULSE 73; RESP 18; TEMP 95.9; O2SAT 92
[2016-07-02] MEDS: ENOXAPARIN SODIUM 40 MG/0.4 ML SYRINGE SQ SCH (10:55)
[2016-07-02] MEDS: predniSONE 20 MG TAB PO SCH (10:56)
[2016-07-02] MEDS: FUROSEMIDE 20 MG TAB PO SCH (10:56)
[2016-07-02] MEDS: FAMOTIDINE 20 MG TAB PO SCH ×2 (10:56→21:18)
[2016-07-02] MEDS: SULFAMETHOXAZOLE-TRIMETHOPRIM 400-80 MG TAB PO SCH ×2 (10:56→21:18)
[2016-07-02] MEDS: ASPIRIN EC 81 MG TABEC PO SCH (10:56)
[2016-07-02] MEDS: MELOXICAM 7.5 MG TAB PO SCH ×2 (10:56→21:18)
[2016-07-02] MEDS: LISINOPRIL 20 MG TAB PO SCH (10:56)
[2016-07-02] MEDS: POTASSIUM CHLORIDE 10 MEQ CONTROLLED RELEASE TAB PO SCH (10:57)
[2016-07-02] MEDS: CALAMINE/PRAMOXINE LOTION 180 ML BTL TOPICAL SCH ×2 (11:01→21:00)
[2016-07-02 11:23] VITALS: BP 130/59; PULSE 70; RESP 18; TEMP 97.4; O2SAT 92
--- NOTE | 2016-07-02 12:11 | HHI.PR ---
Subjective Remarks Follow-up for left hip pain and rash. The patient he seemed to have left hip pain. She states is worse when she tries to move her left lower extremity. She has chronic swelling of her bilateral lower extremities. She continues to improve neck rash, worse in the folds of her elbows. Doesn't think she is exposed to anything other than the medications here, started after Macrobid. She denies any other rash. Objective Vitals Vital Signs Date Time Temp Pulse Resp B/P Pulse Ox O2 Delivery O2 Flow Rate FiO2 07/02/16 11:23 97.4 70 18 130/59 92 07/02/16 09:29 95.9 73 18 172/76 92 07/02/16 04:35 97.6 70 20 158/90 95 07/02/16 00:27 97.6 76 20 150/74 95 07/01/16 19:36 98.0 80 20 134/63 95 07/01/16 16:00 96.2 76 18 146/68 91 07/01/16 14:17 77 18 149/65 95 07/01/16 12:49 18 07/01/16 12:39 97.4 72 20 181/83 90 Imaging Last Impressions Lower Extremity Ultrasound 06/29/16 0000 Signed Impressions: Service Date/Time: Wednesday, June 29, 2016 10:07 - CONCLUSION: Negative for deep venous thrombosis. Alfredo Sanders MD FACR Cervical Spine MRI 06/27/16 0000 Signed Impressions: Service Date/Time: Monday, June 27, 2016 11:09 - CONCLUSION: Mild degenerative changes otherwise unremarkable cervical spine. Anselmo Leavitt MD Thoracic Spine MRI 06/25/16 0000 Signed Impressions: Service Date/Time: June 19:36 - CONCLUSION: 1. No fracture or subluxation of the thoracic spine. 2. Mild and fairly diffuse degenerative changes as above. 3. Mild left foraminal encroachment at T8/T9 and T9/T10. 4. No significant spinal stenosis at any level. 5. Incidentally seen tiny right and small left pleural effusions, nonspecific. Jeevan Arreola MD Lumbar Spine MRI 06/25/16 0000 Signed Impressions: Service Date/Time: June 19:36 - CONCLUSION: 1. Multilevel lumbar degenerative changes as detailed above. 2. Mild spinal stenosis at L3/L4 without evidence of transiting nerve root impingement. 3. Mild to moderate spinal stenosis at L4/L5 and possibly with mild mass effect/impingement on the transiting left L5 nerve root within the subarticular recess. 4. Mild bilateral foraminal encroachment L3/L4 and L4/L5. Mild to moderate bilateral foraminal encroachment at L5/S1. 5. No fracture or subluxation of the lumbar spine. Jeevan Arreola MD Hip and Pelvis X-Ray 06/25/16 0000 Signed Impressions: Service Date/Time: June 20:27 - CONCLUSION: Moderate to severe left hip' right is with considerable osteophytosis and an apparent large inferior joint body. No fracture or subluxation. Jeevan Arreola MD Chest X-Ray 06/23/16 1402 Signed Impressions: Service Date/Time: Thursday, June 23, 2016 14:13 - CONCLUSION: Normal examination. Elías Moreno MD Objective Remarks GENERAL: Well-developed well-nourished. Morbidly obese. In no acute distress. SKIN: Warm and dry. Excoriations on right medial upper arm. Maculopapular rash on the skin folds of the elbows. HEENT: Normocephalic. Pupils equal and round. Mucous membranes pink and moist. CARDIOVASCULAR: Regular rate and rhythm. No murmur appreciated. RESPIRATORY: No accessory muscle use. Clear to auscultation. Breath sounds equal bilaterally. GASTROINTESTINAL: Abdomen soft, non-tender, nondistended. Bowel sounds x4. MUSCULOSKELETAL: Left lateral hip with area of improving induration and warmth, no erythema or TTP. No clubbing or cyanosis. Mild to moderate nonpitting edema bilaterally. NEUROLOGICAL: Awake and alert. No focal neurological deficits. Moves upper and lower extremities spontaneously. Normal speech. PSYCHIATRIC: Appropriate mood and affect; insight and judgment normal. Date of Insertion: Jun 23, 2016 A/P Problem List: (1) Total self-care deficit ICD Code: R41.89 Status: Acute (2) UTI (urinary tract infection) ICD Code: N39.0 Status: Acute (3) Sacral pressure ulcer ICD Code: L89.159 Status: Acute (4) Loose stools ICD Code: R19.5 Status: Acute (5) Elevated TSH ICD Code: R94.6 Status: Acute (6) Arthritis ICD Code: M19.90 Status: Acute Assessment and Plan 70 y/o female with a history of obesity, arthritis, HTN and anxiety presented with: Total self care deficit -Case management consult for SNF placement UTI, culture on last admission grew pansensitive klebsiella pneumonia Labs: UA with evidence of continued infection -Received Levofloxacin IV and IV Rocephin, was changed to oral Macrobid however patient developed rash therefore discontinued abx -urine culture with 10-50K mixed gram positive, probable contaminants, no need for abx. -Removed Delcid catheter Sacral pressure ulcer -Wound care consulted, recommended barrier cream -Turn every Q2H Loose stools/Diarrhea -No further episodes -Cdiff ordered if recurrence of loose stools Subclinical hypothyroidism: TSH mildly elevated at 6.72. T3 and T4 within normal limits. -Repeat thyroid function test in 46 weeks as outpatient. Arthritis, chronic -Continue home meloxicam with GI protection for pain control Left Hip Pain with Left Lumbar Radiculopathy: with numbness to left anterior thigh -T-L Spine MRI showed mild spinal stenosis at L3-4, mild to moderate spinal stenosis at L4-5 and possibly with mild mass effect/impingement and transiting left L5 nerve root with subarticular recess -consulted neurosurgery, ordered C-spine MRI which just showed mild degenerative changes, discussed with Dr. Dennison, no intervention needed -left hip xray showed moderate to severe left hip osteoarthritis with considerable osteophytosis and apparent large inferior joint body, pain control with oral [place], outpatient orthopedic follow-up Rash: patient developed maculopapular rash throughout chest after starting macrobid. -DC'd macrobid -Caladryl lotion -Added Zyrtec hs and Prednisone 40mg daily x3days. -Benadryl changed to hydroxyzine -Hydroxyzine helps, would like to try increased dose Possible early cellulitis of left hip: Empiric Treatment with Keflex and Bactrim. Appears to be slowly improving. LLE Edema: patient with chronic b/l lower extremity nonpitting edema however L worse than the R -b/l doppler U/S negative for DVT -MADIE hose DVT prophylaxis: Lovenox Discharge Planning DC to SNF when arranged. Problem Qualifiers (1) Sacral pressure ulcer: Qualified Code: L89.151 - Decubitus ulcer of sacral region, stage 1 Andrea Granados Jul 02, 2016 12:11 Ludivina Yepez MD Jul 02, 2016 16:33
[2016-07-02] MEDS ORDERED: BACT400T PO (15:10)
[2016-07-02] MEDS ORDERED: PRAM1LOT4 TOPICAL (15:10)
[2016-07-02] MEDS ORDERED: CEPH250C PO (15:10)
[2016-07-02] MEDS ORDERED: HYDR-3133 PO (15:10)
[2016-07-02] MEDS: hydrOXYzine HCL 25 MG TAB PO PRN ×2 (16:12→21:18)
[2016-07-02 16:51] VITALS: BP 146/67; PULSE 71; RESP 16; TEMP 96; O2SAT 93
[2016-07-02] MEDS: CETIRIZINE HCL 10 MG TAB PO SCH (21:18)
[2016-07-02] MEDS: SERTRALINE HCL 100 MG TAB PO SCH (21:18)
[2016-07-03 04:28] VITALS: BP 133/75; PULSE 71; RESP 20; TEMP 98.1; O2SAT 95
[2016-07-03] MEDS: CEPHALEXIN MONOHYDRATE 250 MG CAP PO SCH ×3 (06:31→20:23)
[2016-07-03] MEDS: FUROSEMIDE 20 MG TAB PO SCH (08:09)
[2016-07-03] MEDS: FAMOTIDINE 20 MG TAB PO SCH ×2 (08:09→20:23)
[2016-07-03] MEDS: hydrOXYzine HCL 25 MG TAB PO PRN ×3 (08:09→20:24)
[2016-07-03] MEDS: POTASSIUM CHLORIDE 10 MEQ CONTROLLED RELEASE TAB PO SCH (08:09)
[2016-07-03] MEDS: ASPIRIN EC 81 MG TABEC PO SCH (08:09)
[2016-07-03] MEDS: MELOXICAM 7.5 MG TAB PO SCH ×2 (08:09→20:24)
[2016-07-03] MEDS: SULFAMETHOXAZOLE-TRIMETHOPRIM 400-80 MG TAB PO SCH ×2 (08:09→20:23)
[2016-07-03] MEDS: LISINOPRIL 20 MG TAB PO SCH (08:09)
[2016-07-03] MEDS: ACETAMINOPHEN/HYDROcodone 325 MG/7.5 MG TAB PO PRN ×3 (08:10→20:23)
[2016-07-03] MEDS: SODIUM CHLORIDE 0.9% FLUSH 5 ML FLUSH FLUSH SCH ×2 (08:10→20:22)
[2016-07-03] MEDS: ENOXAPARIN SODIUM 40 MG/0.4 ML SYRINGE SQ SCH (08:10)
[2016-07-03] MEDS: CALAMINE/PRAMOXINE LOTION 180 ML BTL TOPICAL SCH ×2 (08:15→20:22)
[2016-07-03 08:40] VITALS: BP 149/71; PULSE 69; RESP 20; TEMP 98.1; O2SAT 96
--- NOTE | 2016-07-03 11:18 | HHI.PR ---
Subjective Remarks Follow-up for left hip pain and rash. Awaiting insurance authorization for SNF. The patient continues to complain of left hip pain, unchanged. Denies any fevers or chills. She feels like her rash on her arms is improving. Previous rash on chest has resolved. Lower extremity edema unchanged. Objective Vitals Vital Signs Date Time Temp Pulse Resp B/P Pulse Ox O2 Delivery O2 Flow Rate FiO2 07/03/16 08:40 98.1 69 20 149/71 96 07/03/16 04:28 98.1 71 20 133/75 95 07/02/16 16:51 96.0 71 16 146/67 93 07/02/16 11:23 97.4 70 18 130/59 92 I/O 07/02/16 07/02/16 07/02/16 07/03/16 07/03/16 07/03/16 07:00 15:00 23:00 07:00 15:00 23:00 # Voids 1 Objective Remarks GENERAL: Well-developed well-nourished. Morbidly obese. In no acute distress. SKIN: Warm and dry. Excoriations on right medial upper arm. Maculopapular rash on the skin folds of the elbows, appears to be healing. HEENT: Normocephalic. Pupils equal and round. Mucous membranes pink and moist. CARDIOVASCULAR: Regular rate and rhythm. No murmur appreciated. RESPIRATORY: No accessory muscle use. Clear to auscultation. Breath sounds equal bilaterally. GASTROINTESTINAL: Abdomen soft, non-tender, nondistended. Bowel sounds x4. MUSCULOSKELETAL: Left lateral hip with area of improving induration and warmth, no erythema or TTP. No clubbing or cyanosis. Mild to moderate nonpitting edema bilaterally, left worse than right. NEUROLOGICAL: Awake and alert. No focal neurological deficits. Moves upper and lower extremities spontaneously. Normal speech. PSYCHIATRIC: Appropriate mood and affect; insight and judgment normal. Date of Insertion: Jun 23, 2016 A/P Problem List: (1) Total self-care deficit ICD Code: R41.89 Status: Acute (2) Sacral pressure ulcer ICD Code: L89.159 Status: Acute (3) Loose stools ICD Code: R19.5 Status: Acute (4) Elevated TSH ICD Code: R94.6 Status: Acute (5) Arthritis ICD Code: M19.90 Status: Acute Assessment and Plan 70 y/o female with a history of obesity, arthritis, HTN and anxiety presented with: Total self care deficit -Case management consult for SNF placement UTI, culture on last admission grew pansensitive klebsiella pneumonia Labs: UA with evidence of continued infection -Received Levofloxacin IV and IV Rocephin, was changed to oral Macrobid however patient developed rash therefore discontinued abx -urine culture with 10-50K mixed gram positive, probable contaminants, no need for abx. -Removed Delcid catheter Resolved Sacral pressure ulcer -Wound care consulted, recommended barrier cream -Turn every Q2H Loose stools/Diarrhea -No further episodes -Cdiff ordered if recurrence of loose stools Subclinical hypothyroidism: TSH mildly elevated at 6.72. T3 and T4 within normal limits. -Repeat thyroid function test in 46 weeks as outpatient. Arthritis, chronic -Continue home meloxicam with GI protection for pain control Left Hip Pain with Left Lumbar Radiculopathy: with numbness to left anterior thigh -T-L Spine MRI showed mild spinal stenosis at L3-4, mild to moderate spinal stenosis at L4-5 and possibly with mild mass effect/impingement and transiting left L5 nerve root with subarticular recess -consulted neurosurgery, ordered C-spine MRI which just showed mild degenerative changes, discussed with Dr. Dennison, no intervention needed -left hip xray showed moderate to severe left hip osteoarthritis with considerable osteophytosis and apparent large inferior joint body, pain control with oral [place], outpatient orthopedic follow-up Rash: patient developed maculopapular rash throughout chest after starting macrobid. -DC'd macrobid -Caladryl lotion -Added Zyrtec hs and Prednisone 40mg daily x3days. -Benadryl changed to hydroxyzine as needed for itching Possible early cellulitis of left hip: Empiric Treatment with Keflex and Bactrim. LLE Edema: patient with chronic b/l lower extremity nonpitting edema however L worse than the R -b/l doppler U/S negative for DVT -MADIE gilbert DVT prophylaxis: Lovenox Written by Andrea Granados, acting as scribe for Dr. Yepez on 07/03/16 at 11:17. The documentation accurately reflects the work performed [id number] by me Dr. Yepez on 07/03/16 at 11:17. Discharge Planning DC to SNF when arranged. Hopefully today. Problem Qualifiers (1) Sacral pressure ulcer: Qualified Code: L89.151 - Decubitus ulcer of sacral region, stage 1 Andrea Granados Jul 03, 2016 11:17 Ludivina Yepez MD Jul 03, 2016 16:18
[2016-07-03 13:59] VITALS: BP 123/57; PULSE 73; RESP 20; TEMP 97.6; O2SAT 97
[2016-07-03 17:13] VITALS: BP 135/60; PULSE 73; RESP 20; TEMP 97.9; O2SAT 94
[2016-07-03 19:25] VITALS: BP 151/67; PULSE 76; RESP 21; TEMP 98.8; O2SAT 98
[2016-07-03] MEDS: CETIRIZINE HCL 10 MG TAB PO SCH (20:23)
[2016-07-03] MEDS: SERTRALINE HCL 100 MG TAB PO SCH (20:24)
[2016-07-03 22:37] LABS: C. DIFF EPI 027 PRESUMPTIVE NEGATIVE (NEGATIVE)
[2016-07-04 02:36] LABS: C. DIFF TOXIN PCR POSITIVE (NEGATIVE)
[2016-07-04] MEDS: CEPHALEXIN MONOHYDRATE 250 MG CAP PO SCH ×3 (06:00→22:34)
[2016-07-04] MEDS: metroNIDAZOLE 500 MG TAB PO SCH ×3 (06:00→22:34)
[2016-07-04 08:00] VITALS: BP 118/59; PULSE 70; RESP 18; TEMP 96.2; O2SAT 96
[2016-07-04] MEDS: FAMOTIDINE 20 MG TAB PO SCH ×2 (08:53→20:16)
[2016-07-04] MEDS: ENOXAPARIN SODIUM 40 MG/0.4 ML SYRINGE SQ SCH (08:53)
[2016-07-04] MEDS: FUROSEMIDE 20 MG TAB PO SCH (08:53)
[2016-07-04] MEDS: POTASSIUM CHLORIDE 10 MEQ CONTROLLED RELEASE TAB PO SCH (08:54)
[2016-07-04] MEDS: MELOXICAM 7.5 MG TAB PO SCH ×2 (08:54→20:16)
[2016-07-04] MEDS: ACETAMINOPHEN/HYDROcodone 325 MG/7.5 MG TAB PO PRN ×3 (08:54→20:16)
[2016-07-04] MEDS: hydrOXYzine HCL 25 MG TAB PO PRN ×3 (08:55→20:23)
[2016-07-04] MEDS: ASPIRIN EC 81 MG TABEC PO SCH (08:55)
[2016-07-04] MEDS: CALAMINE/PRAMOXINE LOTION 180 ML BTL TOPICAL SCH ×2 (08:55→20:17)
[2016-07-04] MEDS: LISINOPRIL 20 MG TAB PO SCH (08:55)
[2016-07-04] MEDS: SULFAMETHOXAZOLE-TRIMETHOPRIM 400-80 MG TAB PO SCH ×2 (08:55→20:16)
[2016-07-04] MEDS: SODIUM CHLORIDE 0.9% FLUSH 5 ML FLUSH FLUSH SCH ×2 (08:59→20:15)
[2016-07-04 12:00] VITALS: BP 119/56; PULSE 70; RESP 18; TEMP 96.1; O2SAT 97
[2016-07-04 16:00] VITALS: BP 132/60; PULSE 74; RESP 20; TEMP 96.2; O2SAT 95
[2016-07-04] MEDS: LACTOBACILLUS ACIDOPHILUS TAB PO SCH (20:16)
[2016-07-04] MEDS: CETIRIZINE HCL 10 MG TAB PO SCH (20:16)
[2016-07-04] MEDS: SERTRALINE HCL 100 MG TAB PO SCH (20:23)
[2016-07-04 20:42] VITALS: BP 111/61; PULSE 75; RESP 21; TEMP 98.4; O2SAT 98
[2016-07-05] MEDS: ACETAMINOPHEN/HYDROcodone 325 MG/7.5 MG TAB PO PRN ×4 (00:50→21:03)
[2016-07-05 01:21] VITALS: BP 114/54; PULSE 73; RESP 20; TEMP 96.3; O2SAT 96
[2016-07-05] MEDS: hydrOXYzine HCL 25 MG TAB PO PRN ×4 (02:04→21:03)
[2016-07-05] MEDS: metroNIDAZOLE 500 MG TAB PO SCH ×3 (06:02→21:04)
[2016-07-05] MEDS: CEPHALEXIN MONOHYDRATE 250 MG CAP PO SCH ×3 (06:02→23:08)
[2016-07-05 08:00] VITALS: BP 139/62; PULSE 78; RESP 18; TEMP 98; O2SAT 96
[2016-07-05] MEDS: ENOXAPARIN SODIUM 40 MG/0.4 ML SYRINGE SQ SCH (08:07)
[2016-07-05] MEDS: ASPIRIN EC 81 MG TABEC PO SCH (08:07)
[2016-07-05] MEDS: LACTOBACILLUS ACIDOPHILUS TAB PO SCH ×2 (08:08→21:04)
[2016-07-05] MEDS: FUROSEMIDE 20 MG TAB PO SCH (08:08)
[2016-07-05] MEDS: LISINOPRIL 20 MG TAB PO SCH (08:08)
[2016-07-05] MEDS: FAMOTIDINE 20 MG TAB PO SCH ×2 (08:08→21:04)
[2016-07-05] MEDS: POTASSIUM CHLORIDE 10 MEQ CONTROLLED RELEASE TAB PO SCH (08:08)
--- NOTE | 2016-07-05 08:09 | HHI.PR ---
Subjective Remarks Had profuse diarrhea yesterday, says is getting better. No diarrhea overnight or in the morning. NO fever or chills. Says she refused MRI hip yesterday because she did not feel good. No fever or chills No n/v/d/c. Eating well. Pain is fairly controlled by meds. Still with rash on the arms. Objective Vitals Vital Signs Date Time Temp Pulse Resp B/P Pulse Ox O2 Delivery O2 Flow Rate FiO2 07/05/16 02:05 16 07/05/16 01:21 96.3 73 20 114/54 96 07/04/16 20:42 98.4 75 21 111/61 98 07/04/16 16:00 96.2 74 20 132/60 95 07/04/16 12:00 96.1 70 18 119/56 97 I/O 07/04/16 07/04/16 07/04/16 07/05/16 07/05/16 07/05/16 07:00 15:00 23:00 07:00 15:00 23:00 # Voids 3 1 # Bowel Movements 3 Imaging Last Impressions Hip MRI 07/05/16 0000 Signed Impressions: Service Date/Time: Tuesday, July 05, 2016 10:51 - CONCLUSION: 1. There is osteopenia primary degenerative changes at both hips, left greater than right. 2. Prominent osteophyte along the inferior articulating surface of the proximal left femur. 3. Nonspecific edema in the gluteus and hamstring muscles. 4. No acute bony fracture. Javier Fishman MD Lower Extremity Ultrasound 06/29/16 0000 Signed Impressions: Service Date/Time: Wednesday, June 29, 2016 10:07 - CONCLUSION: Negative for deep venous thrombosis. Alfredo Sanders MD FACR Cervical Spine MRI 06/27/16 0000 Signed Impressions: Service Date/Time: Monday, June 27, 2016 11:09 - CONCLUSION: Mild degenerative changes otherwise unremarkable cervical spine. Anselmo Leavitt MD Thoracic Spine MRI 06/25/16 0000 Signed Impressions: Service Date/Time: June 19:36 - CONCLUSION: 1. No fracture or subluxation of the thoracic spine. 2. Mild and fairly diffuse degenerative changes as above. 3. Mild left foraminal encroachment at T8/T9 and T9/T10. 4. No significant spinal stenosis at any level. 5. Incidentally seen tiny right and small left pleural effusions, nonspecific. Jeevan Arreola MD Lumbar Spine MRI 06/25/16 0000 Signed Impressions: Service Date/Time: June 19:36 - CONCLUSION: 1. Multilevel lumbar degenerative changes as detailed above. 2. Mild spinal stenosis at L3/L4 without evidence of transiting nerve root impingement. 3. Mild to moderate spinal stenosis at L4/L5 and possibly with mild mass effect/impingement on the transiting left L5 nerve root within the subarticular recess. 4. Mild bilateral foraminal encroachment L3/L4 and L4/L5. Mild to moderate bilateral foraminal encroachment at L5/S1. 5. No fracture or subluxation of the lumbar spine. Jeevan Arreola MD Hip and Pelvis X-Ray 06/25/16 0000 Signed Impressions: Service Date/Time: June 20:27 - CONCLUSION: Moderate to severe left hip' right is with considerable osteophytosis and an apparent large inferior joint body. No fracture or subluxation. Jeevan Arreola MD Chest X-Ray 06/23/16 1402 Signed Impressions: Service Date/Time: Thursday, June 23, 2016 14:13 - CONCLUSION: Normal examination. Elías Moreno MD Objective Remarks GENERAL: Well-developed well-nourished. Morbidly obese. In no acute distress. SKIN: Warm and dry. Excoriations on right medial upper arm. Maculopapular rash on the skin folds of the elbows, appears to be healing. HEENT: Normocephalic. Pupils equal and round. Mucous membranes pink and moist. CARDIOVASCULAR: Regular rate and rhythm. No murmur appreciated. RESPIRATORY: No accessory muscle use. Clear to auscultation. Breath sounds equal bilaterally. GASTROINTESTINAL: Abdomen soft, non-tender, nondistended. Bowel sounds x4. MUSCULOSKELETAL: Left lateral hip with area of improving induration and warmth, no erythema or TTP. No clubbing or cyanosis. Mild to moderate nonpitting edema bilaterally, left worse than right. NEUROLOGICAL: Awake and alert. No focal neurological deficits. Moves upper and lower extremities spontaneously. Normal speech. PSYCHIATRIC: Appropriate mood and affect; insight and judgment normal. Date of Insertion: Jun 23, 2016 A/P Problem List: (1) Total self-care deficit ICD Code: R41.89 Status: Acute (2) Sacral pressure ulcer ICD Code: L89.159 Status: Acute (3) Loose stools ICD Code: R19.5 Status: Acute (4) Elevated TSH ICD Code: R94.6 Status: Acute (5) Arthritis ICD Code: M19.90 Status: Acute Assessment and Plan 70 y/o female with a history of obesity, arthritis, HTN and anxiety presented with: Total self care deficit -Case management consult for SNF placement UTI, culture on last admission grew pansensitive klebsiella pneumonia Labs: UA with evidence of continued infection -Received Levofloxacin IV and IV Rocephin, was changed to oral Macrobid however patient developed rash therefore discontinued abx -urine culture with 10-50K mixed gram positive, probable contaminants, no need for abx. -Removed Delcid catheter Resolved Sacral pressure ulcer -Wound care consulted, recommended barrier cream -Turn every Q2H Loose stools/Diarrhea -No further episodes -Cdiff positive started flagyl, probiotic. Subclinical hypothyroidism: TSH mildly elevated at 6.72. T3 and T4 within normal limits. -Repeat thyroid function test in 46 weeks as outpatient. Arthritis, chronic -Continue home meloxicam with GI protection for pain control Left Hip Pain with Left Lumbar Radiculopathy: with numbness to left anterior thigh -T-L Spine MRI showed mild spinal stenosis at L3-4, mild to moderate spinal stenosis at L4-5 and possibly with mild mass effect/impingement and transiting left L5 nerve root with subarticular recess -consulted neurosurgery, ordered C-spine MRI which just showed mild degenerative changes, discussed with Dr. Dennison, no intervention needed -left hip xray showed moderate to severe left hip osteoarthritis with considerable osteophytosis and apparent large inferior joint body, pain control with oral [place], outpatient orthopedic follow-up Plan for MRI of the right hip. Rash: patient developed maculopapular rash throughout chest after starting macrobid. -DC'd macrobid -Caladryl lotion -Added Zyrtec hs and Prednisone 40mg daily x3days. -Benadryl changed to hydroxyzine as needed for itching Possible early cellulitis of left hip: Empiric Treatment with Keflex and Bactrim. Plan for MRI of hip LLE Edema: patient with chronic b/l lower extremity nonpitting edema however L worse than the R -b/l doppler U/S negative for DVT -MADIE hosdavid DVT prophylaxis: Lovenox Problem Qualifiers (1) Sacral pressure ulcer: Qualified Code: L89.151 - Decubitus ulcer of sacral region, stage 1 Ludivina Yepez MD Jul 05, 2016 08:09
[2016-07-05] MEDS: CALAMINE/PRAMOXINE LOTION 180 ML BTL TOPICAL SCH ×2 (08:12→21:09)
[2016-07-05] MEDS: SODIUM CHLORIDE 0.9% FLUSH 5 ML FLUSH FLUSH SCH ×2 (09:00→21:06)
[2016-07-05] MEDS: MELOXICAM 7.5 MG TAB PO SCH ×2 (11:24→21:04)
[2016-07-05] MEDS: SULFAMETHOXAZOLE-TRIMETHOPRIM 400-80 MG TAB PO SCH ×2 (11:24→21:04)
--- NOTE | 2016-07-05 11:46 | RADRPT ---
EXAM DATE/TIME: 07/05/2016 10:51 [facility] COMPARISON: HIP LEFT (AP&LAT 2/3VWS) W AP PELVIS, June 25, 2016, 20:27. INDICATIONS : Inability to ambulate. Abnormal xray MEDICAL HISTORY : Hypertension. Obesity. SURGICAL HISTORY : Gastric bypass. Cholecystectomy. ENCOUNTER: Subsequent ACUITY: 2 weeks PAIN SCORE: 3/10 LOCATION: Left hip. TECHNIQUE: Multiplanar, multisequence MRI examination was performed without contrast. FINDINGS: BONE/CARTILAGE: There is osteopenia of the bony structures. There are degenerative changes at both hip joints, left g reater than right. There is a prominent osteophyte along the inferior aspect of the proximal left fem ur. There are subchondral cysts at the left hip joint characteristic for degenerative changes. There is narrowing of the joint space of the left hip. No significant joint effusion is demonstrated. The r ight hip is within normal limits for patient's age. No abnormal bone marrow edema is demonstrated. LABRUM: Degenerative changes but grossly intact. MUSCLES/TENDONS: There is nonspecific edema in the gluteus muscles posteriorly as well as the hamstrings medially. No loculated fluid collections are seen. CONCLUSION: 1. There is osteopenia primary degenerative changes at both hips, left greater than right. 2. Prominent osteophyte along the inferior articulating surface of the proximal left femur. 3. Nonspecific edema in the gluteus and hamstring muscles. 4. No acute bony fracture. Javier Fishman MD on July 05, 2016 at 11:40 Board Certified Radiologist. This report was verified electronically.
[2016-07-05 12:00] VITALS: BP 135/68; PULSE 82; RESP 16; TEMP 97.4; O2SAT 97
[2016-07-05 13:20] LABS: AUTOMATED NEUTROPHIL # 4.1 TH/MM3 (1.8-7.7); BASOPHIL % 0.6 % (0.0-2.0); EOSINOPHIL # 0.7 TH/MM3 (0-0.4); HEMATOCRIT 39.6 % (35.0-46.0); HEMO FLAGS DIFF FINAL; LYMPH % 21.4 % (9.0-44.0); LYMPHOCYTE # 1.4 TH/MM3 (1.0-4.8); MEAN CELL VOLUME 93.8 FL (80.0-100.0); MEAN CORPUSCULAR HEMOGLOBIN 31.2 PG (27.0-34.0); MEAN CORPUSCULAR HGB CONC 33.3 % (32.0-36.0); MONO % 5.9 % (0.0-8.0); NEUT % 62.1 % (16.0-70.0); PLATELET COUNT 242 TH/MM3 (150-450); RED BLOOD COUNT 4.22 MIL/MM3 (4.00-5.30); RED CELL DISTRIBUTION WIDTH 14.3 % (11.6-17.2); WHITE BLOOD COUNT 6.6 TH/MM3 (4.0-11.0)
[2016-07-05 13:35] LABS: BICARBONATE 27.6 MEQ/L (21.0-32.0); POTASSIUM 3.6 MEQ/L (3.5-5.1)
[2016-07-05 16:00] VITALS: BP 103/78; PULSE 74; RESP 18; TEMP 98; O2SAT 98
[2016-07-05 19:20] VITALS: BP 131/62; PULSE 76; RESP 16; TEMP 96.3; O2SAT 98
[2016-07-05] MEDS: CETIRIZINE HCL 10 MG TAB PO SCH (21:04)
[2016-07-05] MEDS: SERTRALINE HCL 100 MG TAB PO SCH (21:04)
[2016-07-06] VITALS: BP 133/63; PULSE 72; RESP 20; TEMP 97.2; O2SAT 95
[2016-07-06 03:45] VITALS: BP 130/68; PULSE 80; RESP 18; TEMP 97.6; O2SAT 96
[2016-07-06] MEDS: metroNIDAZOLE 500 MG TAB PO SCH ×3 (05:15→21:53)
[2016-07-06] MEDS: hydrOXYzine HCL 25 MG TAB PO PRN ×3 (05:15→17:58)
[2016-07-06] MEDS: ACETAMINOPHEN/HYDROcodone 325 MG/7.5 MG TAB PO PRN ×4 (05:15→21:54)
[2016-07-06] MEDS: CEPHALEXIN MONOHYDRATE 250 MG CAP PO SCH ×3 (05:15→21:53)
[2016-07-06 06:52] LABS: AUTOMATED NEUTROPHIL # 3.4 TH/MM3 (1.8-7.7); BASOPHIL % 0.7 % (0.0-2.0); EOSINOPHIL # 0.8 TH/MM3 (0-0.4); EOSINOPHIL % 12.4 % (0.0-4.0); HEMATOCRIT 33.4 % (35.0-46.0); HEMO FLAGS DIFF FINAL; LYMPH % 23.4 % (9.0-44.0); LYMPHOCYTE # 1.4 TH/MM3 (1.0-4.8); MEAN CELL VOLUME 92.1 FL (80.0-100.0); MEAN CORPUSCULAR HEMOGLOBIN 30.6 PG (27.0-34.0); MEAN CORPUSCULAR HGB CONC 33.2 % (32.0-36.0); MONO % 7.8 % (0.0-8.0); NEUT % 55.7 % (16.0-70.0); PLATELET COUNT 219 TH/MM3 (150-450); RED BLOOD COUNT 3.63 MIL/MM3 (4.00-5.30); RED CELL DISTRIBUTION WIDTH 14.5 % (11.6-17.2); WHITE BLOOD COUNT 6.1 TH/MM3 (4.0-11.0)
[2016-07-06 07:23] LABS: BICARBONATE 24.6 MEQ/L (21.0-32.0); POTASSIUM 3.5 MEQ/L (3.5-5.1)
[2016-07-06 08:00] VITALS: BP 133/68; PULSE 71; RESP 18; TEMP 96.4; O2SAT 96
[2016-07-06] MEDS: FAMOTIDINE 20 MG TAB PO SCH ×2 (09:22→21:53)
[2016-07-06] MEDS: FUROSEMIDE 20 MG TAB PO SCH (09:22)
[2016-07-06] MEDS: ENOXAPARIN SODIUM 40 MG/0.4 ML SYRINGE SQ SCH (09:22)
[2016-07-06] MEDS: SULFAMETHOXAZOLE-TRIMETHOPRIM 400-80 MG TAB PO SCH ×2 (09:22→21:53)
[2016-07-06] MEDS: MELOXICAM 7.5 MG TAB PO SCH ×2 (09:22→21:53)
[2016-07-06] MEDS: ASPIRIN EC 81 MG TABEC PO SCH (09:22)
[2016-07-06] MEDS: LACTOBACILLUS ACIDOPHILUS TAB PO SCH ×2 (09:22→21:53)
[2016-07-06] MEDS: SODIUM CHLORIDE 0.9% FLUSH 5 ML FLUSH FLUSH SCH ×2 (09:23→20:11)
[2016-07-06] MEDS: POTASSIUM CHLORIDE 10 MEQ CONTROLLED RELEASE TAB PO SCH (09:23)
[2016-07-06] MEDS: LISINOPRIL 20 MG TAB PO SCH (09:23)
[2016-07-06] MEDS: CALAMINE/PRAMOXINE LOTION 180 ML BTL TOPICAL SCH ×2 (09:24→21:55)
[2016-07-06 12:00] VITALS: BP 129/58; PULSE 78; RESP 18; TEMP 96.6; O2SAT 95
--- NOTE | 2016-07-06 14:05 | HHI.PR ---
Subjective Remarks No diarrhea today. Denies cp, sob , n/v/d/c. Eating. Pain is controlled by meds. Objective Vitals Vital Signs Date Time Temp Pulse Resp B/P Pulse Ox O2 Delivery O2 Flow Rate FiO2 07/06/16 08:00 96.4 71 18 133/68 96 07/06/16 03:45 97.6 80 18 130/68 96 07/06/16 00:00 97.2 72 20 133/63 95 07/05/16 19:20 96.3 76 16 131/62 98 07/05/16 16:00 98.0 74 18 103/78 98 I/O 07/05/16 07/05/16 07/05/16 07/06/16 07/06/16 07/06/16 06:59 14:59 22:59 06:59 14:59 22:59 Intake Total 720 ml 480 ml 480 ml Balance 720 ml 480 ml 480 ml Intake Oral 720 ml 480 ml 480 ml # Voids 3 1 2 # Bowel Movements 1 1 Result Diagram: 07/06/16 0557 07/06/16 0557 Imaging Last Impressions Hip MRI 07/05/16 0000 Signed Impressions: Service Date/Time: Tuesday, July 05, 2016 10:51 - CONCLUSION: 1. There is osteopenia primary degenerative changes at both hips, left greater than right. 2. Prominent osteophyte along the inferior articulating surface of the proximal left femur. 3. Nonspecific edema in the gluteus and hamstring muscles. 4. No acute bony fracture. Javier Fishman MD Lower Extremity Ultrasound 06/29/16 0000 Signed Impressions: Service Date/Time: Wednesday, June 29, 2016 10:07 - CONCLUSION: Negative for deep venous thrombosis. Alfredo Sanders MD FACR Cervical Spine MRI 06/27/16 0000 Signed Impressions: Service Date/Time: Monday, June 27, 2016 11:09 - CONCLUSION: Mild degenerative changes otherwise unremarkable cervical spine. Anselmo Leavitt MD Thoracic Spine MRI 06/25/16 0000 Signed Impressions: Service Date/Time: June 19:36 - CONCLUSION: 1. No fracture or subluxation of the thoracic spine. 2. Mild and fairly diffuse degenerative changes as above. 3. Mild left foraminal encroachment at T8/T9 and T9/T10. 4. No significant spinal stenosis at any level. 5. Incidentally seen tiny right and small left pleural effusions, nonspecific. Jeevan Arreola MD Lumbar Spine MRI 06/25/16 0000 Signed Impressions: Service Date/Time: June 19:36 - CONCLUSION: 1. Multilevel lumbar degenerative changes as detailed above. 2. Mild spinal stenosis at L3/L4 without evidence of transiting nerve root impingement. 3. Mild to moderate spinal stenosis at L4/L5 and possibly with mild mass effect/impingement on the transiting left L5 nerve root within the subarticular recess. 4. Mild bilateral foraminal encroachment L3/L4 and L4/L5. Mild to moderate bilateral foraminal encroachment at L5/S1. 5. No fracture or subluxation of the lumbar spine. Jeevan Arreola MD Hip and Pelvis X-Ray 06/25/16 0000 Signed Impressions: Service Date/Time: June 20:27 - CONCLUSION: Moderate to severe left hip' right is with considerable osteophytosis and an apparent large inferior joint body. No fracture or subluxation. Jeevan Arreola MD Chest X-Ray 06/23/16 1402 Signed Impressions: Service Date/Time: Thursday, June 23, 2016 14:13 - CONCLUSION: Normal examination. Elías Moreno MD Objective Remarks GENERAL: Well-developed well-nourished. Morbidly obese. In no acute distress. SKIN: Warm and dry. Excoriations on right medial upper arm. Maculopapular rash on the skin folds of the elbows, appears to be healing. HEENT: Normocephalic. Pupils equal and round. Mucous membranes pink and moist. CARDIOVASCULAR: Regular rate and rhythm. No murmur appreciated. RESPIRATORY: No accessory muscle use. Clear to auscultation. Breath sounds equal bilaterally. GASTROINTESTINAL: Abdomen soft, non-tender, nondistended. Bowel sounds x4. MUSCULOSKELETAL: Left lateral hip with area of improving induration and warmth, no erythema or TTP. No clubbing or cyanosis. Mild to moderate nonpitting edema bilaterally, left worse than right. NEUROLOGICAL: Awake and alert. No focal neurological deficits. Moves upper and lower extremities spontaneously. Normal speech. PSYCHIATRIC: Appropriate mood and affect; insight and judgment normal. Date of Insertion: Jun 23, 2016 A/P Problem List: (1) Total self-care deficit ICD Code: R41.89 Status: Acute (2) Sacral pressure ulcer ICD Code: L89.159 Status: Acute (3) Loose stools ICD Code: R19.5 Status: Acute (4) Elevated TSH ICD Code: R94.6 Status: Acute (5) Arthritis ICD Code: M19.90 Status: Acute Assessment and Plan 70 y/o female with a history of obesity, arthritis, HTN and anxiety presented with: Total self care deficit -Case management consult for SNF placement UTI, culture on last admission grew pansensitive klebsiella pneumonia Labs: UA with evidence of continued infection -Received Levofloxacin IV and IV Rocephin, was changed to oral Macrobid however patient developed rash therefore discontinued abx -urine culture with 10-50K mixed gram positive, probable contaminants, no need for abx. -Removed Delcid catheter Resolved Sacral pressure ulcer -Wound care consulted, recommended barrier cream -Turn every Q2H Loose stools/Diarrhea -No further episodes -Cdiff positive started flagyl, probiotic. Subclinical hypothyroidism: TSH mildly elevated at 6.72. T3 and T4 within normal limits. -Repeat thyroid function test in 46 weeks as outpatient. Arthritis, chronic -Continue home meloxicam with GI protection for pain control Left Hip Pain with Left Lumbar Radiculopathy: with numbness to left anterior thigh -T-L Spine MRI showed mild spinal stenosis at L3-4, mild to moderate spinal stenosis at L4-5 and possibly with mild mass effect/impingement and transiting left L5 nerve root with subarticular recess -consulted neurosurgery, ordered C-spine MRI which just showed mild degenerative changes, discussed with Dr. Dennison, no intervention needed -left hip xray showed moderate to severe left hip osteoarthritis with considerable osteophytosis and apparent large inferior joint body, pain control with oral [place], outpatient orthopedic follow-up MRI of the right hip reviewed, findings discussed with the patient, no signs of abscess, no fractures or osteo. Rash: patient developed maculopapular rash throughout chest after starting macrobid. -DC'd macrobid -Caladryl lotion -Added Zyrtec hs and Prednisone 40mg daily x3days. -Benadryl changed to hydroxyzine as needed for itching Possible early cellulitis of left hip: Empiric Treatment with Keflex and Bactrim. Plan for MRI of hip LLE Edema: patient with chronic b/l lower extremity nonpitting edema however L worse than the R -b/l doppler U/S negative for DVT -MADIE hose DVT prophylaxis: Lovenox Discussed with the patient, nurse, family at bedside. Problem Qualifiers (1) Sacral pressure ulcer: Qualified Code: L89.151 - Decubitus ulcer of sacral region, stage 1 Ludivina Yepez MD Jul 06, 2016 14:05
--- NOTE | 2016-07-06 14:08 | HHI.PR ---
Subjective Remarks Late entry Seen and examined 07/04/16 Patient reports diarrhea 3 times. No fever or chills. Says hip pain is not getting better. Rash is improving. Objective Vitals Vital Signs Date Time Temp Pulse Resp B/P Pulse Ox O2 Delivery O2 Flow Rate FiO2 07/06/16 08:00 96.4 71 18 133/68 96 07/06/16 03:45 97.6 80 18 130/68 96 07/06/16 00:00 97.2 72 20 133/63 95 07/05/16 19:20 96.3 76 16 131/62 98 07/05/16 16:00 98.0 74 18 103/78 98 I/O 07/05/16 07/05/16 07/05/16 07/06/16 07/06/16 07/06/16 06:59 14:59 22:59 06:59 14:59 22:59 Intake Total 720 ml 480 ml 480 ml Balance 720 ml 480 ml 480 ml Intake Oral 720 ml 480 ml 480 ml # Voids 3 1 2 # Bowel Movements 1 1 Result Diagram: 07/06/16 0557 07/06/16 0557 Objective Remarks GENERAL: Well-developed well-nourished. Morbidly obese. In no acute distress. SKIN: Warm and dry. Excoriations on right medial upper arm. Maculopapular rash on the skin folds of the elbows, appears to be healing. HEENT: Normocephalic. Pupils equal and round. Mucous membranes pink and moist. CARDIOVASCULAR: Regular rate and rhythm. No murmur appreciated. RESPIRATORY: No accessory muscle use. Clear to auscultation. Breath sounds equal bilaterally. GASTROINTESTINAL: Abdomen soft, non-tender, nondistended. Bowel sounds x4. MUSCULOSKELETAL: Left lateral hip with area of improving induration and warmth, no erythema or TTP. No clubbing or cyanosis. Mild to moderate nonpitting edema bilaterally, left worse than right. NEUROLOGICAL: Awake and alert. No focal neurological deficits. Moves upper and lower extremities spontaneously. Normal speech. PSYCHIATRIC: Appropriate mood and affect; insight and judgment normal. Date of Insertion: Jun 23, 2016 A/P Problem List: (1) Total self-care deficit ICD Code: R41.89 Status: Acute (2) Sacral pressure ulcer ICD Code: L89.159 Status: Acute (3) Loose stools ICD Code: R19.5 Status: Acute (4) Elevated TSH ICD Code: R94.6 Status: Acute (5) Arthritis ICD Code: M19.90 Status: Acute Assessment and Plan 70 y/o female with a history of obesity, arthritis, HTN and anxiety presented with: Total self care deficit -Case management consult for SNF placement UTI, culture on last admission grew pansensitive klebsiella pneumonia Labs: UA with evidence of continued infection -Received Levofloxacin IV and IV Rocephin, was changed to oral Macrobid however patient developed rash therefore discontinued abx -urine culture with 10-50K mixed gram positive, probable contaminants, no need for abx. -Removed Delcid catheter Resolved Sacral pressure ulcer -Wound care consulted, recommended barrier cream -Turn every Q2H Loose stools/Diarrhea -No further episodes - check Cdiff . Started probiotic. Subclinical hypothyroidism: TSH mildly elevated at 6.72. T3 and T4 within normal limits. -Repeat thyroid function test in 46 weeks as outpatient. Arthritis, chronic -Continue home meloxicam with GI protection for pain control Left Hip Pain with Left Lumbar Radiculopathy: with numbness to left anterior thigh -T-L Spine MRI showed mild spinal stenosis at L3-4, mild to moderate spinal stenosis at L4-5 and possibly with mild mass effect/impingement and transiting left L5 nerve root with subarticular recess -consulted neurosurgery, ordered C-spine MRI which just showed mild degenerative changes, discussed with Dr. Dennison, no intervention needed -left hip xray showed moderate to severe left hip osteoarthritis with considerable osteophytosis and apparent large inferior joint body, pain control with oral [place], outpatient orthopedic follow-up check MRI left hip Rash: patient developed maculopapular rash throughout chest after starting macrobid. -DC'd macrobid -Caladryl lotion -Added Zyrtec hs and Prednisone 40mg daily x3days. -Benadryl changed to hydroxyzine as needed for itching Possible early cellulitis of left hip: Empiric Treatment with Keflex and Bactrim. Plan for MRI of hip LLE Edema: patient with chronic b/l lower extremity nonpitting edema however L worse than the R -b/l doppler U/S negative for DVT -MADIE hose DVT prophylaxis: Lovenox Discussed with the patient, nurse Problem Qualifiers (1) Sacral pressure ulcer: Qualified Code: L89.151 - Decubitus ulcer of sacral region, stage 1 Ludivina Yepez MD Jul 06, 2016 14:08
[2016-07-06 16:00] VITALS: BP 126/63; PULSE 82; RESP 20; TEMP 96.9; O2SAT 95
[2016-07-06 20:00] VITALS: BP 119/58; PULSE 74; RESP 18; TEMP 97.7; O2SAT 95
[2016-07-06] MEDS: CETIRIZINE HCL 10 MG TAB PO SCH (21:53)
[2016-07-06] MEDS: SERTRALINE HCL 100 MG TAB PO SCH (21:54)
[2016-07-07] VITALS: BP_SYST 129; BP_SYST 148; BP_DIAS 55; BP_DIAS 64; PULSE 71; PULSE 91; RESP 17; RESP 18; TEMP 96.4; TEMP 96.8; O2SAT 94; O2SAT 97
[2016-07-07 04:00] VITALS: BP 134/72; PULSE 68; RESP 16; TEMP 96; O2SAT 95
[2016-07-07] MEDS: CEPHALEXIN MONOHYDRATE 250 MG CAP PO SCH ×3 (06:00→22:25)
[2016-07-07] MEDS: metroNIDAZOLE 500 MG TAB PO SCH ×3 (06:00→22:25)
[2016-07-07 08:00] VITALS: BP 121/61; PULSE 71; RESP 18; TEMP 96.4; O2SAT 94
[2016-07-07] MEDS ORDERED: NALOXONE HCL 0.4 MG/ML AMP IV PUSH PRN (08:00)
[2016-07-07] MEDS ORDERED: CETI10 PO (08:08)
[2016-07-07] MEDS ORDERED: LACT PO (08:08)
[2016-07-07] MEDS ORDERED: METR-1 PO (08:08)
--- NOTE | 2016-07-07 08:08 | HHI.DCPOC ---
Discharge Care Plan Diagnosis: (1) Total self-care deficit Your Health Problems Are: Difficulty with ADL Exercise Tolerance Goals to Promote Your Health * To prevent worsening of your condition and complications * To maintain your health at the optimal level Directions to Meet Your Goals Take your medications as prescribed Follow your dietary instruction Follow activity as directed Keep your appointments as scheduled Take your immunizations and boosters as scheduled If your symptoms worsen call your PCP, if no PCP go to Urgent Care Center or Emergency Room Smoking is Dangerous to Your Health. Avoid second hand smoke Call the 24-hour hour crisis hotline for domestic abuse at Pritesh Morgan MD Jul 07, 2016 08:08
[2016-07-07] MEDS: ACETAMINOPHEN/HYDROcodone 325 MG/7.5 MG TAB PO PRN ×4 (09:49→23:57)
[2016-07-07] MEDS: hydrOXYzine HCL 25 MG TAB PO PRN ×2 (09:49→19:04)
[2016-07-07] MEDS: CALAMINE/PRAMOXINE LOTION 180 ML BTL TOPICAL SCH ×2 (09:49→21:00)
[2016-07-07] MEDS: ENOXAPARIN SODIUM 40 MG/0.4 ML SYRINGE SQ SCH (09:49)
[2016-07-07] MEDS: LACTOBACILLUS ACIDOPHILUS TAB PO SCH ×2 (09:50→22:25)
[2016-07-07] MEDS: ASPIRIN EC 81 MG TABEC PO SCH (09:50)
[2016-07-07] MEDS: SULFAMETHOXAZOLE-TRIMETHOPRIM 400-80 MG TAB PO SCH ×2 (09:50→22:25)
[2016-07-07] MEDS: MELOXICAM 7.5 MG TAB PO SCH ×2 (09:50→22:25)
[2016-07-07] MEDS: LISINOPRIL 20 MG TAB PO SCH (09:50)
[2016-07-07] MEDS: POTASSIUM CHLORIDE 10 MEQ CONTROLLED RELEASE TAB PO SCH (09:51)
[2016-07-07] MEDS: FUROSEMIDE 20 MG TAB PO SCH (09:51)
[2016-07-07] MEDS: FAMOTIDINE 20 MG TAB PO SCH ×2 (09:53→22:25)
[2016-07-07] MEDS: SODIUM CHLORIDE 0.9% FLUSH 5 ML FLUSH FLUSH SCH ×2 (09:57→21:00)
[2016-07-07 12:00] VITALS: BP 137/71; PULSE 75; RESP 18; TEMP 96.8; O2SAT 93
--- NOTE | 2016-07-07 13:55 | HHI.PR ---
Subjective Remarks F/u C diff. Loose stools with nausea. Dw RN Objective Vitals Vital Signs Date Time Temp Pulse Resp B/P Pulse Ox O2 Delivery O2 Flow Rate FiO2 07/07/16 08:00 96.4 71 18 121/61 94 07/07/16 04:00 96.0 68 16 134/72 95 07/07/16 00:00 96.8 71 17 129/55 94 07/06/16 23:15 18 07/06/16 20:00 97.7 74 18 119/58 95 07/06/16 16:00 96.9 82 20 126/63 95 I/O 07/06/16 07/06/16 07/06/16 07/07/16 07/07/16 07/07/16 07:00 15:00 23:00 07:00 15:00 23:00 Intake Total 480 ml 720 ml 120 ml Balance 480 ml 720 ml 120 ml Intake Oral 480 ml 720 ml 120 ml # Voids 2 1 1 # Bowel Movements 1 Result Diagram: 07/06/16 0557 07/06/16 0557 Imaging Last Impressions Hip MRI 07/05/16 0000 Signed Impressions: Service Date/Time: Tuesday, July 05, 2016 10:51 - CONCLUSION: 1. There is osteopenia primary degenerative changes at both hips, left greater than right. 2. Prominent osteophyte along the inferior articulating surface of the proximal left femur. 3. Nonspecific edema in the gluteus and hamstring muscles. 4. No acute bony fracture. Javier Fishman MD Lower Extremity Ultrasound 06/29/16 0000 Signed Impressions: Service Date/Time: Wednesday, June 29, 2016 10:07 - CONCLUSION: Negative for deep venous thrombosis. Alfredo Sanders MD FACR Cervical Spine MRI 06/27/16 0000 Signed Impressions: Service Date/Time: Monday, June 27, 2016 11:09 - CONCLUSION: Mild degenerative changes otherwise unremarkable cervical spine. Anselmo Leavitt MD Thoracic Spine MRI 06/25/16 0000 Signed Impressions: Service Date/Time: June 19:36 - CONCLUSION: 1. No fracture or subluxation of the thoracic spine. 2. Mild and fairly diffuse degenerative changes as above. 3. Mild left foraminal encroachment at T8/T9 and T9/T10. 4. No significant spinal stenosis at any level. 5. Incidentally seen tiny right and small left pleural effusions, nonspecific. Jeevan Arreola MD Lumbar Spine MRI 06/25/16 0000 Signed Impressions: Service Date/Time: June 19:36 - CONCLUSION: 1. Multilevel lumbar degenerative changes as detailed above. 2. Mild spinal stenosis at L3/L4 without evidence of transiting nerve root impingement. 3. Mild to moderate spinal stenosis at L4/L5 and possibly with mild mass effect/impingement on the transiting left L5 nerve root within the subarticular recess. 4. Mild bilateral foraminal encroachment L3/L4 and L4/L5. Mild to moderate bilateral foraminal encroachment at L5/S1. 5. No fracture or subluxation of the lumbar spine. Jeevan Arreola MD Hip and Pelvis X-Ray 06/25/16 0000 Signed Impressions: Service Date/Time: June 20:27 - CONCLUSION: Moderate to severe left hip' right is with considerable osteophytosis and an apparent large inferior joint body. No fracture or subluxation. Jeevan Arreola MD Chest X-Ray 06/23/16 1402 Signed Impressions: Service Date/Time: Thursday, June 23, 2016 14:13 - CONCLUSION: Normal examination. Elías Moreno MD Objective Remarks GENERAL: Well-developed well-nourished. Morbidly obese. In no acute distress. SKIN: Warm and dry. Excoriations on right medial upper arm. Maculopapular rash on the skin folds of the elbows, appears to be healing. Denuded skin right flank HEENT: Normocephalic. Pupils equal and round. Mucous membranes pink and moist. CARDIOVASCULAR: Regular rate and rhythm. No murmur appreciated. RESPIRATORY: No accessory muscle use. Clear to auscultation. Breath sounds equal bilaterally. GASTROINTESTINAL: Abdomen soft, non-tender, nondistended. Bowel sounds x4. MUSCULOSKELETAL: Left lateral hip with area of improving induration and warmth, no erythema or TTP. No clubbing or cyanosis. Mild to moderate nonpitting edema bilaterally, left worse than right. NEUROLOGICAL: Awake and alert. No focal neurological deficits. Moves upper and lower extremities spontaneously. Normal speech. PSYCHIATRIC: Appropriate mood and affect; insight and judgment normal. Procedures none Date of Insertion: Jun 23, 2016 A/P Problem List: (1) Total self-care deficit ICD Code: R41.89 Status: Acute (2) Sacral pressure ulcer ICD Code: L89.159 Status: Acute (3) Loose stools ICD Code: R19.5 Status: Acute (4) Elevated TSH ICD Code: R94.6 Status: Acute (5) Arthritis ICD Code: M19.90 Status: Chronic Assessment and Plan 70 y/o female with a history of obesity, arthritis, HTN and anxiety presented with: Total self care deficit -Case management consult for SNF placement. Insurance won't pay for SNF. 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 -Removed Delcid catheter Resolved Sacral pressure ulcer -Wound care consulted, recommended barrier cream -Turn every Q2H -Reconsult wound care secondary to denuded skin right flank C diff -start Flagyl and Lactinex. Check BMP in the morning and monitor for dehydration Subclinical hypothyroidism: TSH mildly elevated at 6.72. T3 and T4 within normal limits. -Repeat thyroid function test in 46 weeks as outpatient. Arthritis, chronic -Continue home meloxicam with GI protection for pain control Left Hip Pain with Left Lumbar Radiculopathy: with numbness to left anterior thigh -T-L Spine MRI showed mild spinal stenosis at L3-4, mild to moderate spinal stenosis at L4-5 and possibly with mild mass effect/impingement and transiting left L5 nerve root with subarticular recess -consulted neurosurgery, ordered C-spine MRI which just showed mild degenerative changes, discussed with Dr. Dennison, no intervention needed -left hip xray showed moderate to severe left hip osteoarthritis with considerable osteophytosis and apparent large inferior joint body, pain control with oral [place], outpatient orthopedic follow-up check MRI left hip no osteomyelitis Rash: patient developed maculopapular rash throughout chest after starting macrobid. -DC'd macrobid -Caladryl lotion -Added Zyrtec hs status post Prednisone 40mg daily x3days. -Benadryl changed to hydroxyzine as needed for itching Possible early cellulitis of left hip: Empiric Treatment with Keflex and Bactrim. Improved discontinue antibiotics LLE Edema: patient with chronic b/l lower extremity nonpitting edema however L worse than the R -b/l doppler U/S negative for DVT -MADIE hose DVT prophylaxis: Lovenox Discharge Planning LTC when arranged Problem Qualifiers (1) Sacral pressure ulcer: Qualified Code: L89.151 - Decubitus ulcer of sacral region, stage 1 Pritesh Morgan MD Jul 07, 2016 13:55
[2016-07-07 16:00] VITALS: BP 131/61; PULSE 82; RESP 20; TEMP 96.7; O2SAT 95
[2016-07-07] MEDS: NYSTATIN 100,000 UNIT/GM CREAM 15 GM TOPICAL SCH ×2 (18:39→21:00)
[2016-07-07 20:00] VITALS: BP 104/49; PULSE 72; RESP 16; TEMP 97.6; O2SAT 95
[2016-07-07] MEDS: ONDANSETRON HCL 4 MG/2 ML VIAL IV PUSH PRN (22:24)
[2016-07-07] MEDS: SERTRALINE HCL 100 MG TAB PO SCH (22:25)
[2016-07-07] MEDS: CETIRIZINE HCL 10 MG TAB PO SCH (22:25)
[2016-07-08] VITALS: BP 104/62; PULSE 82; RESP 16; TEMP 97.2; O2SAT 93
[2016-07-08 04:00] VITALS: BP 96/57; PULSE 75; RESP 16; TEMP 97.6; O2SAT 92
[2016-07-08] MEDS: hydrOXYzine HCL 25 MG TAB PO PRN ×3 (04:15→23:19)
[2016-07-08] MEDS: ACETAMINOPHEN/HYDROcodone 325 MG/7.5 MG TAB PO PRN ×4 (04:15→21:21)
[2016-07-08] MEDS: CEPHALEXIN MONOHYDRATE 250 MG CAP PO SCH (05:31)
[2016-07-08] MEDS: metroNIDAZOLE 500 MG TAB PO SCH ×3 (05:31→21:21)
[2016-07-08 07:50] VITALS: BP 106/54; PULSE 70; RESP 20; TEMP 96.4; O2SAT 92
[2016-07-08 09:47] LABS: AUTOMATED NEUTROPHIL # 4.4 TH/MM3 (1.8-7.7); BASOPHIL # 0.1 TH/MM3 (0-0.2); BASOPHIL % 0.9 % (0.0-2.0); EOSINOPHIL # 0.7 TH/MM3 (0-0.4); EOSINOPHIL % 9.5 % (0.0-4.0); HEMATOCRIT 36.5 % (35.0-46.0); HEMO FLAGS DIFF FINAL; LYMPH % 19.8 % (9.0-44.0); LYMPHOCYTE # 1.4 TH/MM3 (1.0-4.8); MEAN CELL VOLUME 93.5 FL (80.0-100.0); MEAN CORPUSCULAR HEMOGLOBIN 30.7 PG (27.0-34.0); MEAN CORPUSCULAR HGB CONC 32.9 % (32.0-36.0); MONO % 8.7 % (0.0-8.0); NEUT % 61.1 % (16.0-70.0); PLATELET COUNT 251 TH/MM3 (150-450); RED CELL DISTRIBUTION WIDTH 14.6 % (11.6-17.2); WHITE BLOOD COUNT 7.3 TH/MM3 (4.0-11.0)
[2016-07-08] MEDS: ENOXAPARIN SODIUM 40 MG/0.4 ML SYRINGE SQ SCH (10:10)
[2016-07-08] MEDS: POTASSIUM CHLORIDE 10 MEQ CONTROLLED RELEASE TAB PO SCH (10:10)
[2016-07-08] MEDS: MELOXICAM 7.5 MG TAB PO SCH (10:10)
[2016-07-08] MEDS: LACTOBACILLUS ACIDOPHILUS TAB PO SCH ×2 (10:10→21:21)
[2016-07-08] MEDS: FAMOTIDINE 20 MG TAB PO SCH ×2 (10:10→21:21)
[2016-07-08] MEDS: FUROSEMIDE 20 MG TAB PO SCH (10:10)
[2016-07-08] MEDS: ASPIRIN EC 81 MG TABEC PO SCH (10:10)
[2016-07-08] MEDS: CALAMINE/PRAMOXINE LOTION 180 ML BTL TOPICAL SCH ×2 (10:10→21:23)
[2016-07-08] MEDS: LISINOPRIL 20 MG TAB PO SCH (10:10)
[2016-07-08] MEDS: NYSTATIN 100,000 UNIT/GM CREAM 15 GM TOPICAL SCH ×2 (10:10→21:23)
[2016-07-08] MEDS: SODIUM CHLORIDE 0.9% FLUSH 5 ML FLUSH FLUSH SCH ×2 (10:10→21:23)
[2016-07-08] MEDS: SULFAMETHOXAZOLE-TRIMETHOPRIM 400-80 MG TAB PO SCH (10:12)
[2016-07-08 10:32] LABS: BICARBONATE 26.2 MEQ/L (21.0-32.0); POTASSIUM 3.6 MEQ/L (3.5-5.1)
[2016-07-08 11:50] VITALS: BP 109/55; PULSE 66; RESP 20; TEMP 96; O2SAT 95
--- NOTE | 2016-07-08 13:46 | HHI.PR ---
Subjective Remarks Follow-up dermatitis. Complains of pruritus requesting stronger antihistamines. No shortness of breath. Discussed with RN and wound care. Seen with Objective Vitals Vital Signs Date Time Temp Pulse Resp B/P Pulse Ox O2 Delivery O2 Flow Rate FiO2 07/08/16 07:50 96.4 70 20 106/54 92 07/08/16 04:00 97.6 75 16 96/57 92 07/08/16 00:00 97.2 82 16 104/62 93 07/07/16 20:05 18 07/07/16 20:00 97.6 72 16 104/49 95 07/07/16 16:00 96.7 82 20 131/61 95 I/O 07/07/16 07/07/16 07/07/16 07/08/16 07/08/16 07/08/16 07:00 15:00 23:00 07:00 15:00 23:00 Intake Total 120 ml 780 ml 200 ml Output Total 700 ml Balance 120 ml 80 ml 200 ml Intake Oral 120 ml 780 ml 200 ml Output Urine Total 700 ml # Voids 2 2 # Bowel Movements 3 0 Result Diagram: 07/08/16 0909 07/08/16 0909 Imaging Last Impressions Hip MRI 07/05/16 0000 Signed Impressions: Service Date/Time: Tuesday, July 05, 2016 10:51 - CONCLUSION: 1. There is osteopenia primary degenerative changes at both hips, left greater than right. 2. Prominent osteophyte along the inferior articulating surface of the proximal left femur. 3. Nonspecific edema in the gluteus and hamstring muscles. 4. No acute bony fracture. Javier Fishman MD Lower Extremity Ultrasound 06/29/16 0000 Signed Impressions: Service Date/Time: Wednesday, June 29, 2016 10:07 - CONCLUSION: Negative for deep venous thrombosis. Alfredo Sanders MD FACR Cervical Spine MRI 06/27/16 0000 Signed Impressions: Service Date/Time: Monday, June 27, 2016 11:09 - CONCLUSION: Mild degenerative changes otherwise unremarkable cervical spine. Anselmo Leavitt MD Thoracic Spine MRI 06/25/16 0000 Signed Impressions: Service Date/Time: June 19:36 - CONCLUSION: 1. No fracture or subluxation of the thoracic spine. 2. Mild and fairly diffuse degenerative changes as above. 3. Mild left foraminal encroachment at T8/T9 and T9/T10. 4. No significant spinal stenosis at any level. 5. Incidentally seen tiny right and small left pleural effusions, nonspecific. Jeevan Arreola MD Lumbar Spine MRI 06/25/16 0000 Signed Impressions: Service Date/Time: June 19:36 - CONCLUSION: 1. Multilevel lumbar degenerative changes as detailed above. 2. Mild spinal stenosis at L3/L4 without evidence of transiting nerve root impingement. 3. Mild to moderate spinal stenosis at L4/L5 and possibly with mild mass effect/impingement on the transiting left L5 nerve root within the subarticular recess. 4. Mild bilateral foraminal encroachment L3/L4 and L4/L5. Mild to moderate bilateral foraminal encroachment at L5/S1. 5. No fracture or subluxation of the lumbar spine. Jeevan Arreola MD Hip and Pelvis X-Ray 06/25/16 0000 Signed Impressions: Service Date/Time: June 20:27 - CONCLUSION: Moderate to severe left hip' right is with considerable osteophytosis and an apparent large inferior joint body. No fracture or subluxation. Jeevan Arreola MD Chest X-Ray 06/23/16 1402 Signed Impressions: Service Date/Time: Thursday, June 23, 2016 14:13 - CONCLUSION: Normal examination. Elías Moreno MD Objective Remarks GENERAL: Well-developed well-nourished. Morbidly obese. In no acute distress. SKIN: Warm and dry. Excoriations on right medial upper arm. Maculopapular rash on the skin folds of the elbows, appears to be healing. Denuded skin right flank HEENT: Normocephalic. Pupils equal and round. Mucous membranes pink and moist. CARDIOVASCULAR: Regular rate and rhythm. No murmur appreciated. RESPIRATORY: No accessory muscle use. Clear to auscultation. Breath sounds equal bilaterally. GASTROINTESTINAL: Abdomen soft, non-tender, nondistended. Bowel sounds x4. MUSCULOSKELETAL: Left lateral hip with area of improving induration and warmth, no erythema or TTP. No clubbing or cyanosis. Mild to moderate nonpitting edema bilaterally, left worse than right. NEUROLOGICAL: Awake and alert. No focal neurological deficits. Moves upper and lower extremities spontaneously. Normal speech. PSYCHIATRIC: Appropriate mood and affect; insight and judgment normal. Procedures none Date of Insertion: Jun 23, 2016 A/P Problem List: (1) Total self-care deficit ICD Code: R41.89 Status: Acute (2) Sacral pressure ulcer ICD Code: L89.159 Status: Acute (3) Loose stools ICD Code: R19.5 Status: Acute (4) Elevated TSH ICD Code: R94.6 Status: Acute (5) Arthritis ICD Code: M19.90 Status: Chronic Assessment and Plan 70 y/o female with a history of obesity, arthritis, HTN and anxiety presented with: Total self care deficit -Case management consult for SNF placement. Insurance won't pay for SNF. 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 -Removed Delcid catheter Resolved Sacral pressure ulcer -Wound care consulted, recommended barrier cream -Turn every Q2H -Reconsult wound care secondary to denuded skin right flank C diff -Continue Flagyl and Lactinex. Check BMP in the morning and monitor for dehydration Chronic kidney disease stage III. Monitor for dehydration and avoid nephrotoxins discontinue meloxicam Subclinical hypothyroidism: TSH mildly elevated at 6.72. T3 and T4 within normal limits. -Repeat thyroid function test in 46 weeks as outpatient. Arthritis, chronic -Continue home meloxicam with GI protection for pain control Left Hip Pain with Left Lumbar Radiculopathy: with numbness to left anterior thigh -T-L Spine MRI showed mild spinal stenosis at L3-4, mild to moderate spinal stenosis at L4-5 and possibly with mild mass effect/impingement and transiting left L5 nerve root with subarticular recess -consulted neurosurgery, ordered C-spine MRI which just showed mild degenerative changes, discussed with Dr. Dennison, no intervention needed -left hip xray showed moderate to severe left hip osteoarthritis with considerable osteophytosis and apparent large inferior joint body, pain control with oral [place], outpatient orthopedic follow-up check MRI left hip no osteomyelitis Dermatitis Rash: patient developed maculopapular rash throughout chest after starting macrobid. -DC'd macrobid -Caladryl lotion -Added Zyrtec hs status post Prednisone 40mg daily x3days. -Benadryl changed to hydroxyzine as needed for itching. Increase hydroxyzine Possible early cellulitis of left hip: Empiric Treatment with Keflex and Bactrim. Improved discontinue antibiotics LLE Edema: patient with chronic b/l lower extremity nonpitting edema however L worse than the R -b/l doppler U/S negative for DVT -MADIE hose DVT prophylaxis: Lovenox Discharge Planning LTC when arranged Problem Qualifiers (1) Sacral pressure ulcer: Qualified Code: L89.151 - Decubitus ulcer of sacral region, stage 1 Pritesh Morgan MD Jul 08, 2016 13:46
[2016-07-08 15:50] VITALS: BP 110/51; PULSE 67; RESP 20; TEMP 96.4; O2SAT 95
[2016-07-08 20:00] VITALS: BP 102/49; PULSE 77; RESP 16; TEMP 96.8; O2SAT 94
[2016-07-08] MEDS: CETIRIZINE HCL 10 MG TAB PO SCH (21:21)
[2016-07-08] MEDS: SERTRALINE HCL 100 MG TAB PO SCH (21:21)
[2016-07-08] MEDS: ONDANSETRON HCL 4 MG/2 ML VIAL IV PUSH PRN (21:28)
[2016-07-09 00:07] VITALS: BP 101/53; PULSE 77; RESP 16; TEMP 97.5; O2SAT 91
[2016-07-09] MEDS: metroNIDAZOLE 500 MG TAB PO SCH ×3 (05:19→21:57)
[2016-07-09] MEDS: ACETAMINOPHEN/HYDROcodone 325 MG/7.5 MG TAB PO PRN ×3 (05:21→21:57)
[2016-07-09 05:34] VITALS: BP 109/58; PULSE 76; RESP 16; TEMP 96.2; O2SAT 92
[2016-07-09] MEDS: hydrOXYzine HCL 25 MG TAB PO PRN ×3 (06:04→21:56)
[2016-07-09 07:30] VITALS: BP 119/59; PULSE 69; RESP 20; TEMP 97.9; O2SAT 95
[2016-07-09 08:48] LABS: BICARBONATE 25.1 MEQ/L (21.0-32.0)
[2016-07-09] MEDS: CALAMINE/PRAMOXINE LOTION 180 ML BTL TOPICAL SCH ×2 (09:00→21:00)
[2016-07-09] MEDS: LISINOPRIL 20 MG TAB PO SCH (09:22)
[2016-07-09] MEDS: FAMOTIDINE 20 MG TAB PO SCH ×2 (09:23→21:57)
[2016-07-09] MEDS: LACTOBACILLUS ACIDOPHILUS TAB PO SCH ×2 (09:23→21:56)
[2016-07-09] MEDS: ASPIRIN EC 81 MG TABEC PO SCH (09:23)
[2016-07-09] MEDS: FUROSEMIDE 20 MG TAB PO SCH (09:23)
[2016-07-09] MEDS: POTASSIUM CHLORIDE 10 MEQ CONTROLLED RELEASE TAB PO SCH (09:23)
[2016-07-09] MEDS: ENOXAPARIN SODIUM 40 MG/0.4 ML SYRINGE SQ SCH (09:23)
[2016-07-09] MEDS: NYSTATIN 100,000 UNIT/GM CREAM 15 GM TOPICAL SCH ×2 (09:24→21:58)
[2016-07-09] MEDS: SODIUM CHLORIDE 0.9% FLUSH 5 ML FLUSH FLUSH SCH ×2 (09:25→21:00)
--- NOTE | 2016-07-09 09:35 | HHI.PR ---
Subjective Remarks Follow-up C. difficile. She feels okay. Discussed with RN Objective Vitals Vital Signs Date Time Temp Pulse Resp B/P Pulse Ox O2 Delivery O2 Flow Rate FiO2 07/09/16 05:34 96.2 76 16 109/58 92 07/09/16 00:07 97.5 77 16 101/53 91 07/08/16 20:00 96.8 77 16 102/49 94 07/08/16 15:50 96.4 67 20 110/51 95 07/08/16 11:50 96.0 66 20 109/55 95 I/O 07/08/16 07/08/16 07/08/16 07/09/16 07/09/16 07/09/16 06:59 14:59 22:59 06:59 14:59 22:59 Intake Total 200 ml 240 ml 400 ml 200 ml Balance 200 ml 240 ml 400 ml 200 ml Intake Oral 200 ml 240 ml 400 ml 200 ml IV Total 0 ml # Voids 2 3 1 1 # Bowel Movements 0 1 1 1 Result Diagram: 07/08/16 0909 07/09/16 0715 Objective Remarks GENERAL: Well-developed well-nourished. Morbidly obese. In no acute distress. SKIN: Warm and dry. Excoriations on right medial upper arm. Maculopapular rash on the skin folds of the elbows, appears to be healing. Denuded skin right flank HEENT: Normocephalic. Pupils equal and round. Mucous membranes pink and moist. CARDIOVASCULAR: Regular rate and rhythm. No murmur appreciated. RESPIRATORY: No accessory muscle use. Clear to auscultation. Breath sounds equal bilaterally. GASTROINTESTINAL: Abdomen soft, non-tender, nondistended. Bowel sounds x4. MUSCULOSKELETAL: Left lateral hip with area of improving induration and warmth, no erythema or TTP. No clubbing or cyanosis. Mild to moderate nonpitting edema bilaterally, left worse than right. NEUROLOGICAL: Awake and alert. No focal neurological deficits. Moves upper and lower extremities spontaneously. Normal speech. Nonfocal PSYCHIATRIC: Appropriate mood and affect; insight and judgment normal. Procedures none Date of Insertion: Jun 23, 2016 A/P Problem List: (1) Total self-care deficit ICD Code: R41.89 Status: Acute (2) Sacral pressure ulcer ICD Code: L89.159 Status: Acute (3) Loose stools ICD Code: R19.5 Status: Acute (4) Elevated TSH ICD Code: R94.6 Status: Acute (5) Arthritis ICD Code: M19.90 Status: Chronic Assessment and Plan 70 y/o female with a history of obesity, arthritis, HTN and anxiety presented with: Total self care deficit -Case management consult for SNF placement. Insurance won't pay for SNF. 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 -Removed Delcid catheter Resolved Sacral pressure ulcer -Wound care consulted, recommended barrier cream -Turn every Q2H -Reconsult wound care secondary to denuded skin right flank C diff -Continue Flagyl and Lactinex. Check BMP in the morning and monitor for dehydration Chronic kidney disease stage III. Monitor for dehydration and avoid nephrotoxins discontinue meloxicam Subclinical hypothyroidism: TSH mildly elevated at 6.72. T3 and T4 within normal limits. -Repeat thyroid function test in 46 weeks as outpatient. Arthritis, chronic -Continue home meloxicam with GI protection for pain control Left Hip Pain with Left Lumbar Radiculopathy: with numbness to left anterior thigh -T-L Spine MRI showed mild spinal stenosis at L3-4, mild to moderate spinal stenosis at L4-5 and possibly with mild mass effect/impingement and transiting left L5 nerve root with subarticular recess -consulted neurosurgery, ordered C-spine MRI which just showed mild degenerative changes, discussed with Dr. Dennison, no intervention needed -left hip xray showed moderate to severe left hip osteoarthritis with considerable osteophytosis and apparent large inferior joint body, pain control with oral [place], outpatient orthopedic follow-up check MRI left hip no osteomyelitis Dermatitis/Rash: patient developed maculopapular rash throughout chest after starting macrobid. Improving -DC'd macrobid -Caladryl lotion -Added Zyrtec hs status post Prednisone 40mg daily x3days. -Benadryl changed to hydroxyzine as needed for itching. Increase hydroxyzine Possible early cellulitis of left hip: Empiric Treatment with Keflex and Bactrim. Improved discontinue antibiotics LLE Edema: patient with chronic b/l lower extremity nonpitting edema however L worse than the R -b/l doppler U/S negative for DVT -MADIE hose DVT prophylaxis: Lovenox Discharge Planning LTC when arranged Problem Qualifiers (1) Sacral pressure ulcer: Qualified Code: L89.151 - Decubitus ulcer of sacral region, stage 1 Pritesh Morgan MD Jul 09, 2016 09:34
[2016-07-09 11:50] VITALS: BP 108/53; PULSE 72; RESP 20; TEMP 97.8; O2SAT 94
[2016-07-09] MEDS: ONDANSETRON HCL 4 MG/2 ML VIAL IV PUSH PRN ×2 (13:06→22:02)
[2016-07-09] MEDS ORDERED: PILL SPLITTER OTHER PRN (15:45)
[2016-07-09 15:50] VITALS: BP 96/54; PULSE 67; RESP 20; TEMP 97.8; O2SAT 95
[2016-07-09 20:00] VITALS: BP 104/51; PULSE 76; RESP 16; TEMP 98.2; O2SAT 94
[2016-07-09] MEDS: SERTRALINE HCL 100 MG TAB PO SCH (21:56)
[2016-07-09] MEDS: CETIRIZINE HCL 10 MG TAB PO SCH (21:57)
[2016-07-10 00:06] VITALS: BP 95/52; PULSE 98; RESP 16; TEMP 97.3; O2SAT 96
[2016-07-10 04:00] VITALS: BP 109/54; PULSE 73; RESP 16; TEMP 96; O2SAT 95
[2016-07-10] MEDS: metroNIDAZOLE 500 MG TAB PO SCH ×3 (06:22→21:18)
[2016-07-10] MEDS: ACETAMINOPHEN/HYDROcodone 325 MG/7.5 MG TAB PO PRN ×3 (06:23→21:18)
[2016-07-10] MEDS: hydrOXYzine HCL 25 MG TAB PO PRN ×3 (06:23→21:18)
[2016-07-10 08:00] VITALS: BP 108/53; PULSE 69; RESP 20; TEMP 96.4; O2SAT 95
[2016-07-10] MEDS: CALAMINE/PRAMOXINE LOTION 180 ML BTL TOPICAL SCH ×2 (09:00→21:00)
[2016-07-10] MEDS: NYSTATIN 100,000 UNIT/GM CREAM 15 GM TOPICAL SCH ×2 (09:00→21:19)
[2016-07-10] MEDS: LISINOPRIL 20 MG TAB PO SCH (09:44)
[2016-07-10] MEDS: ENOXAPARIN SODIUM 40 MG/0.4 ML SYRINGE SQ SCH (09:44)
[2016-07-10] MEDS: SODIUM CHLORIDE 0.9% FLUSH 5 ML FLUSH FLUSH SCH ×2 (09:44→21:00)
[2016-07-10] MEDS: FUROSEMIDE 20 MG TAB PO SCH (09:44)
[2016-07-10] MEDS: ASPIRIN EC 81 MG TABEC PO SCH (09:45)
[2016-07-10] MEDS: LACTOBACILLUS ACIDOPHILUS TAB PO SCH ×2 (09:45→21:18)
[2016-07-10] MEDS: FAMOTIDINE 20 MG TAB PO SCH ×2 (09:45→21:18)
[2016-07-10 10:39] LABS: BICARBONATE 24.3 MEQ/L (21.0-32.0); POTASSIUM 3.6 MEQ/L (3.5-5.1)
[2016-07-10 12:00] VITALS: BP 132/63; PULSE 72; RESP 20; TEMP 96.5; O2SAT 95
[2016-07-10 16:00] VITALS: BP 108/57; PULSE 68; RESP 16; TEMP 96.8; O2SAT 93
--- NOTE | 2016-07-10 17:22 | HHI.PR ---
Subjective Remarks Follow-up CVA. One large BM last night none so far today. Discussed with RN in case management Objective Vitals Vital Signs Date Time Temp Pulse Resp B/P Pulse Ox O2 Delivery O2 Flow Rate FiO2 07/10/16 16:00 96.8 68 16 108/57 93 07/10/16 12:00 96.5 72 20 132/63 95 07/10/16 12:00 96.5 72 20 132/63 95 07/10/16 08:00 96.4 69 20 108/53 95 07/10/16 04:00 96.0 73 16 109/54 95 07/10/16 00:06 97.3 98 16 95/52 96 07/09/16 20:00 98.2 76 16 104/51 94 I/O 07/09/16 07/09/16 07/09/16 07/10/16 07/10/16 07/10/16 07:00 15:00 23:00 07:00 15:00 23:00 Intake Total 200 ml 582 ml 300 ml 200 ml 0 ml Balance 200 ml 582 ml 300 ml 200 ml 0 ml Intake Oral 200 ml 582 ml 300 ml 200 ml IV Total 0 ml # Voids 1 6 1 1 # Bowel Movements 1 2 1 1 Result Diagram: 07/08/16 0909 07/10/16 0932 Objective Remarks GENERAL: Well-developed well-nourished. Morbidly obese. In no acute distress. No signs of dehydration SKIN: Warm and dry. Improving rash left medial upper arm. Maculopapular rash on the skin folds of the elbows, appears to be healing. Denuded skin right flank HEENT: Normocephalic. Pupils equal and round. Mucous membranes pink and moist. CARDIOVASCULAR: Regular rate and rhythm. No murmur appreciated. RESPIRATORY: No accessory muscle use. Clear to auscultation. Breath sounds equal bilaterally. GASTROINTESTINAL: Abdomen soft, non-tender, nondistended. Bowel sounds x4. MUSCULOSKELETAL: Left lateral hip with area of improving induration and warmth, no erythema or TTP. No clubbing or cyanosis. Mild to moderate nonpitting edema bilaterally, left worse than right. NEUROLOGICAL: Awake and alert. No focal neurological deficits. Moves upper and lower extremities spontaneously. Normal speech. Nonfocal PSYCHIATRIC: Appropriate mood and affect; insight and judgment normal. Procedures none Date of Insertion: Jun 23, 2016 A/P Problem List: (1) Total self-care deficit ICD Code: R41.89 Status: Acute (2) Sacral pressure ulcer ICD Code: L89.159 Status: Acute (3) Loose stools ICD Code: R19.5 Status: Acute (4) Elevated TSH ICD Code: R94.6 Status: Acute (5) Arthritis ICD Code: M19.90 Status: Chronic Assessment and Plan 70 y/o female with a history of obesity, arthritis, HTN and anxiety presented with: Total self care deficit -Case management consult for SNF placement. Insurance won't pay for SNF. 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 -Removed Delcid catheter Resolved Sacral pressure ulcer -Wound care consulted, recommended barrier cream -Turn every Q2H -Reconsult wound care secondary to denuded skin right flank C diff -Continue Flagyl and Lactinex. Check BMP in the morning and monitor for dehydration Chronic kidney disease stage III. Monitor for dehydration and avoid nephrotoxins discontinue meloxicam. Stable Subclinical hypothyroidism: TSH mildly elevated at 6.72. T3 and T4 within normal limits. -Repeat thyroid function test in 46 weeks as outpatient. Arthritis, chronic -Continue home meloxicam with GI protection for pain control Left Hip Pain with Left Lumbar Radiculopathy: with numbness to left anterior thigh -T-L Spine MRI showed mild spinal stenosis at L3-4, mild to moderate spinal stenosis at L4-5 and possibly with mild mass effect/impingement and transiting left L5 nerve root with subarticular recess -consulted neurosurgery, ordered C-spine MRI which just showed mild degenerative changes, discussed with Dr. Dennison, no intervention needed -left hip xray showed moderate to severe left hip osteoarthritis with considerable osteophytosis and apparent large inferior joint body, pain control with oral [place], outpatient orthopedic follow-up check MRI left hip no osteomyelitis Dermatitis/Rash: patient developed maculopapular rash throughout chest after starting macrobid. Improving -DC'd macrobid -Caladryl lotion -Added Zyrtec hs status post Prednisone 40mg daily x3days. -Benadryl changed to hydroxyzine as needed for itching. Increase hydroxyzine Possible early cellulitis of left hip: Empiric Treatment with Keflex and Bactrim. Improved discontinued antibiotics LLE Edema: patient with chronic b/l lower extremity nonpitting edema however L worse than the R -b/l doppler U/S negative for DVT -MADIE hose DVT prophylaxis: Lovenox Discharge Planning NH when arranged Problem Qualifiers (1) Sacral pressure ulcer: Qualified Code: L89.151 - Decubitus ulcer of sacral region, stage 1 Pritesh Morgan MD Jul 10, 2016 17:22
[2016-07-10] MEDS ORDERED: POTASSIUM CHLORIDE 10 MEQ CONTROLLED RELEASE TAB PO ONE (17:30)
[2016-07-10 20:00] VITALS: BP 122/57; PULSE 71; RESP 19; TEMP 97; O2SAT 94
[2016-07-10] MEDS: CETIRIZINE HCL 10 MG TAB PO SCH (21:18)
[2016-07-10] MEDS: SERTRALINE HCL 100 MG TAB PO SCH (21:18)
[2016-07-11] VITALS: BP 105/55; PULSE 75; RESP 19; TEMP 96.4; O2SAT 93
[2016-07-11 04:00] VITALS: BP 108/58; PULSE 76; RESP 18; TEMP 96.6; O2SAT 96
[2016-07-11] MEDS: metroNIDAZOLE 500 MG TAB PO SCH ×3 (04:15→22:21)
[2016-07-11] MEDS: hydrOXYzine HCL 25 MG TAB PO PRN ×3 (04:15→18:57)
[2016-07-11] MEDS: ACETAMINOPHEN/HYDROcodone 325 MG/7.5 MG TAB PO PRN ×5 (04:16→23:12)
[2016-07-11 08:00] VITALS: BP 108/53; PULSE 72; RESP 18; TEMP 96.7; O2SAT 94
[2016-07-11] MEDS: LACTOBACILLUS ACIDOPHILUS TAB PO SCH ×2 (08:19→22:21)
[2016-07-11] MEDS: FAMOTIDINE 20 MG TAB PO SCH ×2 (08:19→22:22)
[2016-07-11] MEDS: LISINOPRIL 20 MG TAB PO SCH (08:19)
[2016-07-11] MEDS: FUROSEMIDE 20 MG TAB PO SCH (08:20)
[2016-07-11] MEDS: ASPIRIN EC 81 MG TABEC PO SCH (08:20)
[2016-07-11] MEDS: ENOXAPARIN SODIUM 40 MG/0.4 ML SYRINGE SQ SCH (08:21)
[2016-07-11] MEDS: NYSTATIN 100,000 UNIT/GM CREAM 15 GM TOPICAL SCH ×2 (09:00→22:23)
[2016-07-11] MEDS: CALAMINE/PRAMOXINE LOTION 180 ML BTL TOPICAL SCH ×2 (09:00→21:00)
[2016-07-11 10:03] LABS: MAGNESIUM 2.2 MG/DL (1.5-2.5); POTASSIUM 3.6 MEQ/L (3.5-5.1)
[2016-07-11] MEDS ORDERED: POTASSIUM CHLORIDE 10 MEQ CONTROLLED RELEASE TAB PO ONE (11:30)
--- NOTE | 2016-07-11 11:38 | HHI.PR ---
Subjective Remarks Follow-up CVA. Formed BM today. Patient has no complaints. Discussed with RN Objective Vitals Vital Signs Date Time Temp Pulse Resp B/P Pulse Ox O2 Delivery O2 Flow Rate FiO2 07/11/16 08:00 96.7 72 18 108/53 94 07/11/16 04:00 96.6 76 18 108/58 96 07/11/16 00:00 96.4 75 19 105/55 93 07/10/16 20:00 97.0 71 19 122/57 94 07/10/16 16:02 18 07/10/16 16:00 96.8 68 16 108/57 93 07/10/16 12:00 96.5 72 20 132/63 95 07/10/16 12:00 96.5 72 20 132/63 95 I/O 07/10/16 07/10/16 07/10/16 07/11/16 07/11/16 07/11/16 07:00 15:00 23:00 07:00 15:00 23:00 Intake Total 200 ml 0 ml 480 ml 480 ml Balance 200 ml 0 ml 480 ml 480 ml Intake Oral 200 ml 480 ml 480 ml IV Total 0 ml # Voids 1 1 1 # Bowel Movements 1 Result Diagram: 07/08/16 0909 07/11/16 0850 Imaging Last Impressions Hip MRI 07/05/16 0000 Signed Impressions: Service Date/Time: Tuesday, July 05, 2016 10:51 - CONCLUSION: 1. There is osteopenia primary degenerative changes at both hips, left greater than right. 2. Prominent osteophyte along the inferior articulating surface of the proximal left femur. 3. Nonspecific edema in the gluteus and hamstring muscles. 4. No acute bony fracture. Javier Fishman MD Lower Extremity Ultrasound 06/29/16 0000 Signed Impressions: Service Date/Time: Wednesday, June 29, 2016 10:07 - CONCLUSION: Negative for deep venous thrombosis. Alfredo Sanders MD FACR Cervical Spine MRI 06/27/16 0000 Signed Impressions: Service Date/Time: Monday, June 27, 2016 11:09 - CONCLUSION: Mild degenerative changes otherwise unremarkable cervical spine. Anselmo Leavitt MD Thoracic Spine MRI 06/25/16 0000 Signed Impressions: Service Date/Time: June 19:36 - CONCLUSION: 1. No fracture or subluxation of the thoracic spine. 2. Mild and fairly diffuse degenerative changes as above. 3. Mild left foraminal encroachment at T8/T9 and T9/T10. 4. No significant spinal stenosis at any level. 5. Incidentally seen tiny right and small left pleural effusions, nonspecific. Jeevan Arreola MD Lumbar Spine MRI 06/25/16 0000 Signed Impressions: Service Date/Time: June 19:36 - CONCLUSION: 1. Multilevel lumbar degenerative changes as detailed above. 2. Mild spinal stenosis at L3/L4 without evidence of transiting nerve root impingement. 3. Mild to moderate spinal stenosis at L4/L5 and possibly with mild mass effect/impingement on the transiting left L5 nerve root within the subarticular recess. 4. Mild bilateral foraminal encroachment L3/L4 and L4/L5. Mild to moderate bilateral foraminal encroachment at L5/S1. 5. No fracture or subluxation of the lumbar spine. Jeevan Arreola MD Hip and Pelvis X-Ray 06/25/16 0000 Signed Impressions: Service Date/Time: June 20:27 - CONCLUSION: Moderate to severe left hip' right is with considerable osteophytosis and an apparent large inferior joint body. No fracture or subluxation. Jeevan Arreola MD Chest X-Ray 06/23/16 1402 Signed Impressions: Service Date/Time: Thursday, June 23, 2016 14:13 - CONCLUSION: Normal examination. Elías Moreno MD Objective Remarks GENERAL: Well-developed well-nourished. Morbidly obese. In no acute distress. SKIN: Warm and dry. Improving rash left medial upper arm. Maculopapular rash on the skin folds of the elbows, appears to be healing. HEENT: Normocephalic. Pupils equal and round. Mucous membranes pink and moist. CARDIOVASCULAR: Regular rate and rhythm. No murmur appreciated. RESPIRATORY: No accessory muscle use. Clear to auscultation. Breath sounds equal bilaterally. GASTROINTESTINAL: Abdomen soft, non-tender, nondistended. Bowel sounds x4. MUSCULOSKELETAL: Left lateral hip with area of improving induration and warmth, no erythema or TTP. No clubbing or cyanosis. Mild to moderate nonpitting edema bilaterally, left worse than right. NEUROLOGICAL: Awake and alert. No focal neurological deficits. Moves upper and lower extremities spontaneously. Normal speech. Nonfocal PSYCHIATRIC: Appropriate mood and affect; insight and judgment normal. Procedures none Date of Insertion: Jun 23, 2016 A/P Problem List: (1) Total self-care deficit ICD Code: R41.89 Status: Acute (2) Sacral pressure ulcer ICD Code: L89.159 Status: Acute (3) Loose stools ICD Code: R19.5 Status: Acute (4) Elevated TSH ICD Code: R94.6 Status: Acute (5) Arthritis ICD Code: M19.90 Status: Chronic Assessment and Plan 70 y/o female with a history of obesity, arthritis, HTN and anxiety presented with: Total self care deficit -Case management consult for SNF placement. Insurance won't pay for SNF. 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 -Removed Delcid catheter Resolved Sacral pressure ulcer -Wound care consulted, recommended barrier cream -Turn every Q2H -Reconsult wound care secondary to denuded skin right flank C diff -Continue Flagyl and Lactinex. Improving Chronic kidney disease stage III. Monitor for dehydration and avoid nephrotoxins discontinue meloxicam. Improving Subclinical hypothyroidism: TSH mildly elevated at 6.72. T3 and T4 within normal limits. -Repeat thyroid function test in 46 weeks as outpatient. Arthritis, chronic -Continue home meloxicam with GI protection for pain control Left Hip Pain with Left Lumbar Radiculopathy: with numbness to left anterior thigh -T-L Spine MRI showed mild spinal stenosis at L3-4, mild to moderate spinal stenosis at L4-5 and possibly with mild mass effect/impingement and transiting left L5 nerve root with subarticular recess -consulted neurosurgery, ordered C-spine MRI which just showed mild degenerative changes, discussed with Dr. Dennison, no intervention needed -left hip xray showed moderate to severe left hip osteoarthritis with considerable osteophytosis and apparent large inferior joint body, pain control with oral [place], outpatient orthopedic follow-up check MRI left hip no osteomyelitis Dermatitis/Rash: patient developed maculopapular rash throughout chest after starting macrobid. Improving -DC'd macrobid -Caladryl lotion -Added Zyrtec hs status post Prednisone 40mg daily x3days. -Benadryl changed to hydroxyzine as needed for itching. Increase hydroxyzine Possible early cellulitis of left hip: Empiric Treatment with Keflex and Bactrim. Improved discontinued antibiotics LLE Edema: patient with chronic b/l lower extremity nonpitting edema however L worse than the R -b/l doppler U/S negative for DVT -MADIE hose DVT prophylaxis: Lovenox Discharge Planning NH when arranged Problem Qualifiers (1) Sacral pressure ulcer: Qualified Code: L89.151 - Decubitus ulcer of sacral region, stage 1 Pritesh Morgan MD Jul 11, 2016 11:38
[2016-07-11] MEDS: SODIUM CHLORIDE 0.9% FLUSH 5 ML FLUSH FLUSH SCH ×2 (11:39→21:00)
[2016-07-11 16:00] VITALS: BP 99/51; PULSE 73; RESP 18; TEMP 96.8; O2SAT 94
[2016-07-11] MEDS: ONDANSETRON HCL 4 MG/2 ML VIAL IV PUSH PRN (19:15)
[2016-07-11 20:00] VITALS: BP 106/55; PULSE 68; RESP 18; TEMP 98.1; O2SAT 93
[2016-07-11] MEDS: SERTRALINE HCL 100 MG TAB PO SCH (22:22)
[2016-07-11] MEDS: CETIRIZINE HCL 10 MG TAB PO SCH (22:22)
[2016-07-12] VITALS: BP 108/57; PULSE 77; RESP 17; TEMP 96.2; O2SAT 93
[2016-07-12] MEDS: hydrOXYzine HCL 25 MG TAB PO PRN ×4 (03:27→23:17)
[2016-07-12] MEDS: ONDANSETRON HCL 4 MG/2 ML VIAL IV PUSH PRN ×4 (03:40→23:36)
[2016-07-12] MEDS: ACETAMINOPHEN/HYDROcodone 325 MG/7.5 MG TAB PO PRN ×5 (03:41→23:16)
[2016-07-12 04:00] VITALS: BP 119/61; PULSE 82; RESP 18; TEMP 96.4; O2SAT 94
[2016-07-12] MEDS: metroNIDAZOLE 500 MG TAB PO SCH ×3 (06:09→23:16)
[2016-07-12 09:00] VITALS: BP 125/60; PULSE 78; RESP 18; TEMP 97.4; O2SAT 96
--- NOTE | 2016-07-12 09:20 | HHI.PR ---
Subjective Remarks Follow-up CVA. 3 loose stools yesterday but none since discussed with RN Objective Vitals Vital Signs Date Time Temp Pulse Resp B/P Pulse Ox O2 Delivery O2 Flow Rate FiO2 07/12/16 04:00 96.4 82 18 119/61 94 07/12/16 00:00 96.2 77 17 108/57 93 07/11/16 20:00 98.1 68 18 106/55 93 07/11/16 16:00 96.8 73 18 99/51 94 I/O 07/11/16 07/11/16 07/11/16 07/12/16 07/12/16 07/12/16 06:59 14:59 22:59 06:59 14:59 22:59 Intake Total 480 ml 480 ml 480 ml Output Total 240 ml Balance 480 ml 480 ml 480 ml -240 ml Intake Oral 480 ml 480 ml 480 ml Output Urine Total 240 ml # Voids 1 2 2 # Bowel Movements 2 1 Result Diagram: 07/08/16 0909 07/11/16 0850 Objective Remarks GENERAL: Well-developed well-nourished. Morbidly obese. In no acute distress. No signs of dehydration SKIN: Warm and dry. Improving rash left medial upper arm. Maculopapular rash on the skin folds of the elbows, appears to be healing. HEENT: Normocephalic. Pupils equal and round. Mucous membranes pink and moist. CARDIOVASCULAR: Regular rate and rhythm. No murmur appreciated. RESPIRATORY: No accessory muscle use. Clear to auscultation. Breath sounds equal bilaterally. GASTROINTESTINAL: Abdomen soft, non-tender, nondistended. Bowel sounds x4. MUSCULOSKELETAL: Left lateral hip with area of improving induration and warmth, no erythema or TTP. No clubbing or cyanosis. Mild to moderate nonpitting edema bilaterally, left worse than right. NEUROLOGICAL: Awake and alert. No focal neurological deficits. Moves upper and lower extremities spontaneously. Normal speech. Nonfocal PSYCHIATRIC: Appropriate mood and affect; insight and judgment normal. Procedures none Date of Insertion: Jun 23, 2016 A/P Problem List: (1) Total self-care deficit ICD Code: R41.89 Status: Acute (2) Sacral pressure ulcer ICD Code: L89.159 Status: Acute (3) Loose stools ICD Code: R19.5 Status: Acute (4) Elevated TSH ICD Code: R94.6 Status: Acute (5) Arthritis ICD Code: M19.90 Status: Chronic Assessment and Plan 70 y/o female with a history of obesity, arthritis, HTN and anxiety presented with: Total self care deficit -Case management consult for SNF placement. Insurance won't pay for SNF. 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 -Removed Delcid catheter Resolved Sacral pressure ulcer -Wound care consulted, recommended barrier cream -Turn every Q2H -Reconsult wound care secondary to denuded skin right flank C diff -Loose stools yesterday but none today. Continue Flagyl and Lactinex. Repeat labs in the morning Chronic kidney disease stage III. Monitor for dehydration and avoid nephrotoxins discontinue meloxicam. Improving. Repeat BMP and magnesium in the morning because of diarrhea Subclinical hypothyroidism: TSH mildly elevated at 6.72. T3 and T4 within normal limits. -Repeat thyroid function test in 46 weeks as outpatient. Arthritis, chronic -Continue home meloxicam with GI protection for pain control Left Hip Pain with Left Lumbar Radiculopathy: with numbness to left anterior thigh -T-L Spine MRI showed mild spinal stenosis at L3-4, mild to moderate spinal stenosis at L4-5 and possibly with mild mass effect/impingement and transiting left L5 nerve root with subarticular recess -consulted neurosurgery, ordered C-spine MRI which just showed mild degenerative changes, discussed with Dr. Dennison, no intervention needed -left hip xray showed moderate to severe left hip osteoarthritis with considerable osteophytosis and apparent large inferior joint body, pain control with oral [place], outpatient orthopedic follow-up check MRI left hip no osteomyelitis Dermatitis/Rash: patient developed maculopapular rash throughout chest after starting macrobid. Improving -DC'd macrobid -Caladryl lotion -Added Zyrtec hs status post Prednisone 40mg daily x3days. -Benadryl changed to hydroxyzine as needed for itching. Increase hydroxyzine Possible early cellulitis of left hip: Empiric Treatment with Keflex and Bactrim. Improved discontinued antibiotics LLE Edema: patient with chronic b/l lower extremity nonpitting edema however L worse than the R -b/l doppler U/S negative for DVT -MADIE hose DVT prophylaxis: Lovenox Discharge Planning NH when arranged Problem Qualifiers (1) Sacral pressure ulcer: Qualified Code: L89.151 - Decubitus ulcer of sacral region, stage 1 Pritesh Morgan MD Jul 12, 2016 09:20
[2016-07-12] MEDS: SODIUM CHLORIDE 0.9% FLUSH 5 ML FLUSH FLUSH SCH (09:47)
[2016-07-12] MEDS: LISINOPRIL 20 MG TAB PO SCH (09:48)
[2016-07-12] MEDS: FAMOTIDINE 20 MG TAB PO SCH ×2 (09:48→23:17)
[2016-07-12] MEDS: LACTOBACILLUS ACIDOPHILUS TAB PO SCH ×2 (09:48→21:00)
[2016-07-12] MEDS: ENOXAPARIN SODIUM 40 MG/0.4 ML SYRINGE SQ SCH (09:48)
[2016-07-12] MEDS: ASPIRIN EC 81 MG TABEC PO SCH (09:48)
[2016-07-12] MEDS: FUROSEMIDE 20 MG TAB PO SCH (09:48)
[2016-07-12] MEDS: NYSTATIN 100,000 UNIT/GM CREAM 15 GM TOPICAL SCH ×2 (09:55→21:00)
[2016-07-12] MEDS: CALAMINE/PRAMOXINE LOTION 180 ML BTL TOPICAL SCH ×2 (09:55→21:00)
[2016-07-12 13:15] VITALS: BP 117/56; PULSE 74; RESP 18; TEMP 96.6; O2SAT 95
[2016-07-12 16:00] VITALS: BP 126/63; PULSE 66; RESP 18; TEMP 96; O2SAT 97
[2016-07-12 20:00] VITALS: BP 107/53; PULSE 71; RESP 18; TEMP 96.7; O2SAT 96
[2016-07-12] MEDS: SERTRALINE HCL 100 MG TAB PO SCH (23:15)
[2016-07-12] MEDS: CETIRIZINE HCL 10 MG TAB PO SCH (23:17)
[2016-07-13] VITALS: BP 119/56; PULSE 73; RESP 18; TEMP 96.7; O2SAT 94
[2016-07-13 02:00] VITALS: BP 120/64; PULSE 73; RESP 17; TEMP 97.6; O2SAT 96
[2016-07-13 04:00] VITALS: BP 135/58; PULSE 71; RESP 18; TEMP 96.4; O2SAT 96
[2016-07-13] MEDS: ACETAMINOPHEN/HYDROcodone 325 MG/7.5 MG TAB PO PRN ×4 (04:45→20:41)
[2016-07-13] MEDS: metroNIDAZOLE 500 MG TAB PO SCH ×3 (04:46→20:40)
[2016-07-13] MEDS: hydrOXYzine HCL 25 MG TAB PO PRN ×3 (04:46→20:40)
[2016-07-13 08:29] LABS: AUTOMATED NEUTROPHIL # 3.2 TH/MM3 (1.8-7.7); BASOPHIL % 0.7 % (0.0-2.0); EOSINOPHIL # 0.5 TH/MM3 (0-0.4); EOSINOPHIL % 8.7 % (0.0-4.0); HEMO FLAGS DIFF FINAL; LYMPH % 24.5 % (9.0-44.0); LYMPHOCYTE # 1.3 TH/MM3 (1.0-4.8); MEAN CELL VOLUME 93.9 FL (80.0-100.0); MEAN CORPUSCULAR HEMOGLOBIN 30.4 PG (27.0-34.0); MEAN CORPUSCULAR HGB CONC 32.3 % (32.0-36.0); MONO % 8.6 % (0.0-8.0); NEUT % 57.5 % (16.0-70.0); PLATELET COUNT 242 TH/MM3 (150-450); RED BLOOD COUNT 3.73 MIL/MM3 (4.00-5.30); RED CELL DISTRIBUTION WIDTH 14.7 % (11.6-17.2); WHITE BLOOD COUNT 5.5 TH/MM3 (4.0-11.0)
[2016-07-13 08:42] LABS: BICARBONATE 25.8 MEQ/L (21.0-32.0); POTASSIUM 3.5 MEQ/L (3.5-5.1)
[2016-07-13] MEDS: FUROSEMIDE 20 MG TAB PO SCH (09:00)
[2016-07-13] MEDS: LISINOPRIL 20 MG TAB PO SCH (09:00)
[2016-07-13] MEDS: LACTOBACILLUS ACIDOPHILUS TAB PO SCH ×2 (09:00→20:39)
[2016-07-13 10:00] VITALS: BP 107/58; PULSE 68; RESP 18; TEMP 96.2; O2SAT 97
[2016-07-13] MEDS: ASPIRIN EC 81 MG TABEC PO SCH (10:44)
[2016-07-13] MEDS: FAMOTIDINE 20 MG TAB PO SCH ×2 (10:45→20:40)
[2016-07-13] MEDS: ENOXAPARIN SODIUM 40 MG/0.4 ML SYRINGE SQ SCH (10:45)
[2016-07-13] MEDS: ONDANSETRON HCL 4 MG/2 ML VIAL IV PUSH PRN (10:49)
[2016-07-13] MEDS: SODIUM CHLORIDE 0.9% FLUSH 5 ML FLUSH FLUSH SCH ×2 (10:52→20:46)
[2016-07-13] MEDS: CALAMINE/PRAMOXINE LOTION 180 ML BTL TOPICAL SCH ×2 (10:54→20:48)
[2016-07-13] MEDS: NYSTATIN 100,000 UNIT/GM CREAM 15 GM TOPICAL SCH ×3 (10:54→18:00)
--- NOTE | 2016-07-13 11:35 | HHI.PR ---
Subjective Remarks Follow-up C. difficile. 1 loose stool yesterday none overnight. Patient shows me new rash right antecubital area consistent with tinea. Discussed with RN Objective Vitals Vital Signs Date Time Temp Pulse Resp B/P Pulse Ox O2 Delivery O2 Flow Rate FiO2 07/13/16 10:00 96.2 68 18 107/58 97 07/13/16 04:00 96.4 71 18 135/58 96 07/13/16 00:00 96.7 73 18 119/56 94 07/12/16 20:00 96.7 71 18 107/53 96 07/12/16 16:00 96.0 66 18 126/63 97 07/12/16 13:15 96.6 74 18 117/56 95 I/O 07/12/16 07/12/16 07/12/16 07/13/16 07/13/16 07/13/16 07:00 15:00 23:00 07:00 15:00 23:00 Intake Total 480 ml 480 ml 240 ml Output Total 240 ml Balance -240 ml 480 ml 480 ml 240 ml Intake Oral 480 ml 480 ml 240 ml Output Urine Total 240 ml # Voids 3 2 1 # Bowel Movements 0 2 1 Result Diagram: 07/13/16 0751 07/13/16 0751 Objective Remarks GENERAL: Well-developed well-nourished. Morbidly obese. In no acute distress. No signs of dehydration SKIN: Warm and dry. Improving rash left medial upper arm. Maculopapular rash on the skin folds of the elbows, appears to be healing. New maculopapular rash right antecubital area consistent with tinea. Also has pustules left lower anterior leg HEENT: Normocephalic. Pupils equal and round. Mucous membranes pink and moist. CARDIOVASCULAR: Regular rate and rhythm. No murmur appreciated. RESPIRATORY: No accessory muscle use. Clear to auscultation. Breath sounds equal bilaterally. GASTROINTESTINAL: Abdomen soft, non-tender, nondistended. Bowel sounds x4. MUSCULOSKELETAL: Left lateral hip with area of improving induration and warmth, no erythema or TTP. No clubbing or cyanosis. Mild to moderate nonpitting edema bilaterally, left worse than right. NEUROLOGICAL: Awake and alert. No focal neurological deficits. Moves upper and lower extremities spontaneously. Normal speech. Nonfocal PSYCHIATRIC: Appropriate mood and affect; insight and judgment normal. Procedures none Date of Insertion: Jun 23, 2016 A/P Problem List: (1) Total self-care deficit ICD Code: R41.89 Status: Acute (2) Sacral pressure ulcer ICD Code: L89.159 Status: Acute (3) Loose stools ICD Code: R19.5 Status: Acute (4) Elevated TSH ICD Code: R94.6 Status: Acute (5) Arthritis ICD Code: M19.90 Status: Chronic Assessment and Plan 70 y/o female with a history of obesity, arthritis, HTN and anxiety presented with: Total self care deficit -Case management consult for SNF placement. Insurance won't pay for SNF. 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 -Removed Delcid catheter Resolved Sacral pressure ulcer -Wound care consulted, recommended barrier cream -Turn every Q2H -Reconsult wound care secondary to denuded skin right flank C diff -Loose stools yesterday but none today. Continue Flagyl and Lactinex. Repeat labs in the morning Chronic kidney disease stage III. Monitor for dehydration and avoid nephrotoxins discontinue meloxicam. Improving. Repeat BMP and magnesium in the morning because of diarrhea Subclinical hypothyroidism: TSH mildly elevated at 6.72. T3 and T4 within normal limits. -Repeat thyroid function test in 46 weeks as outpatient. Arthritis, chronic -Continue home meloxicam with GI protection for pain control Left Hip Pain with Left Lumbar Radiculopathy: with numbness to left anterior thigh -T-L Spine MRI showed mild spinal stenosis at L3-4, mild to moderate spinal stenosis at L4-5 and possibly with mild mass effect/impingement and transiting left L5 nerve root with subarticular recess -consulted neurosurgery, ordered C-spine MRI which just showed mild degenerative changes, discussed with Dr. Dennison, no intervention needed -left hip xray showed moderate to severe left hip osteoarthritis with considerable osteophytosis and apparent large inferior joint body, pain control with oral [place], outpatient orthopedic follow-up check MRI left hip no osteomyelitis Dermatitis/Rash: patient developed maculopapular rash throughout chest after starting macrobid. Improving -DC'd macrobid -Caladryl lotion -Added Zyrtec hs status post Prednisone 40mg daily x3days. -Benadryl changed to hydroxyzine as needed for itching. Increase hydroxyzine -Nystatin cream right antecubital area and Bactroban ointment left lower anterior leg pustules Possible early cellulitis of left hip: Empiric Treatment with Keflex and Bactrim. Improved discontinued antibiotics LLE Edema: patient with chronic b/l lower extremity nonpitting edema however L worse than the R -b/l doppler U/S negative for DVT -MADIE hose DVT prophylaxis: Lovenox Discharge Planning NH when arranged Problem Qualifiers (1) Sacral pressure ulcer: Qualified Code: L89.151 - Decubitus ulcer of sacral region, stage 1 Pritesh Morgan MD Jul 13, 2016 11:35
[2016-07-13] MEDS ORDERED: POTASSIUM CHLORIDE 10 MEQ CONTROLLED RELEASE TAB PO ONE (12:00)
[2016-07-13] MEDS: MUPIROCIN 2% CREAM 15 GM TOPICAL SCH ×2 (13:30→20:39)
[2016-07-13 16:00] VITALS: BP 105/59; PULSE 80; RESP 18; TEMP 96.2; O2SAT 97
[2016-07-13] MEDS: SERTRALINE HCL 100 MG TAB PO SCH (20:39)
[2016-07-13] MEDS: CETIRIZINE HCL 10 MG TAB PO SCH (20:40)
[2016-07-14] VITALS: BP 111/63; PULSE 77; RESP 18; TEMP 98; O2SAT 96
[2016-07-14] MEDS: ONDANSETRON HCL 4 MG/2 ML VIAL IV PUSH PRN ×3 (02:46→17:54)
[2016-07-14 04:00] VITALS: BP 118/70; PULSE 70; RESP 17; TEMP 97.6; O2SAT 94
[2016-07-14] MEDS: metroNIDAZOLE 500 MG TAB PO SCH ×3 (05:52→22:33)
[2016-07-14] MEDS: hydrOXYzine HCL 25 MG TAB PO PRN ×3 (05:58→22:34)
[2016-07-14] MEDS: ACETAMINOPHEN/HYDROcodone 325 MG/7.5 MG TAB PO PRN ×4 (05:58→22:39)
[2016-07-14] MEDS: NYSTATIN 100,000 UNIT/GM CREAM 15 GM TOPICAL SCH ×4 (06:00→17:54)
[2016-07-14 08:00] VITALS: BP 133/70; PULSE 80; RESP 18; TEMP 98.1; O2SAT 96
[2016-07-14] MEDS: ASPIRIN EC 81 MG TABEC PO SCH (08:57)
[2016-07-14] MEDS: LISINOPRIL 20 MG TAB PO SCH (08:57)
[2016-07-14] MEDS: FAMOTIDINE 20 MG TAB PO SCH ×2 (08:57→22:34)
[2016-07-14] MEDS: ENOXAPARIN SODIUM 40 MG/0.4 ML SYRINGE SQ SCH (08:58)
[2016-07-14] MEDS: LACTOBACILLUS ACIDOPHILUS TAB PO SCH ×2 (08:58→22:33)
[2016-07-14] MEDS: SODIUM CHLORIDE 0.9% FLUSH 5 ML FLUSH FLUSH SCH ×2 (08:58→22:40)
[2016-07-14] MEDS: FUROSEMIDE 20 MG TAB PO SCH (08:58)
[2016-07-14] MEDS: CALAMINE/PRAMOXINE LOTION 180 ML BTL TOPICAL SCH ×2 (09:00→21:00)
[2016-07-14] MEDS: MUPIROCIN 2% CREAM 15 GM TOPICAL SCH ×2 (09:00→22:40)
--- NOTE | 2016-07-14 10:45 | HHI.PR ---
Subjective Remarks Follow-up C. difficile. No diarrhea. Patient noncompliant with offloading patient counseled. Discussed with RN Objective Vitals Vital Signs Date Time Temp Pulse Resp B/P Pulse Ox O2 Delivery O2 Flow Rate FiO2 07/14/16 08:00 98.1 80 18 133/70 96 07/14/16 04:00 97.6 70 17 118/70 94 07/14/16 00:00 98.0 77 18 111/63 96 07/13/16 16:00 96.2 80 18 105/59 97 I/O 07/13/16 07/13/16 07/13/16 07/14/16 07/14/16 07/14/16 07:00 15:00 23:00 07:00 15:00 23:00 Intake Total 720 ml 5 ml Balance 720 ml 5 ml Intake Oral 720 ml IV Total 5 ml # Voids 2 1 1 2 # Bowel Movements 1 1 Result Diagram: 07/13/16 0751 07/13/16 0751 Objective Remarks GENERAL: Well-developed well-nourished. Morbidly obese. In no acute distress. No signs of dehydration SKIN: Warm and dry. Improving erythema back areas. New maculopapular rash right antecubital area consistent with tinea. Also has pustules left lower anterior leg HEENT: Normocephalic. Pupils equal and round. Mucous membranes pink and moist. CARDIOVASCULAR: Regular rate and rhythm. No murmur appreciated. RESPIRATORY: No accessory muscle use. Clear to auscultation. Breath sounds equal bilaterally. GASTROINTESTINAL: Abdomen soft, non-tender, nondistended. Bowel sounds x4. MUSCULOSKELETAL: Left lateral hip with area of improving induration and warmth, no erythema or TTP. No clubbing or cyanosis. Mild to moderate nonpitting edema bilaterally, left worse than right. NEUROLOGICAL: Awake and alert. No focal neurological deficits. Moves upper and lower extremities spontaneously. Normal speech. Nonfocal PSYCHIATRIC: Appropriate mood and affect; insight and judgment normal. Procedures none Date of Insertion: Jun 23, 2016 A/P Problem List: (1) Total self-care deficit ICD Code: R41.89 Status: Acute (2) Sacral pressure ulcer ICD Code: L89.159 Status: Acute (3) Loose stools ICD Code: R19.5 Status: Acute (4) Elevated TSH ICD Code: R94.6 Status: Acute (5) Arthritis ICD Code: M19.90 Status: Chronic Assessment and Plan 70 y/o female with a history of obesity, arthritis, HTN and anxiety presented with: Total self care deficit -Case management consult for SNF placement. Insurance won't pay for SNF. 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 -Removed Delcid catheter Resolved Sacral pressure ulcer -Wound care consulted, recommended barrier cream -Turn every Q2H -Reconsulted wound care secondary to denuded skin right flank/back which is improving C diff -Improving labs stable. Continue Flagyl till July 18 and Lactinex. Chronic kidney disease stage III. Monitor for dehydration and avoid nephrotoxins discontinue meloxicam. Improving. Subclinical hypothyroidism: TSH mildly elevated at 6.72. T3 and T4 within normal limits. -Repeat thyroid function test in 46 weeks as outpatient. Arthritis, chronic -Continue home meloxicam with GI protection for pain control Left Hip Pain with Left Lumbar Radiculopathy: with numbness to left anterior thigh -T-L Spine MRI showed mild spinal stenosis at L3-4, mild to moderate spinal stenosis at L4-5 and possibly with mild mass effect/impingement and transiting left L5 nerve root with subarticular recess -consulted neurosurgery, ordered C-spine MRI which just showed mild degenerative changes, discussed with Dr. Dennison, no intervention needed -left hip xray showed moderate to severe left hip osteoarthritis with considerable osteophytosis and apparent large inferior joint body, pain control with oral [place], outpatient orthopedic follow-up check MRI left hip no osteomyelitis Dermatitis/Rash: Improving -DC'd macrobid -Caladryl lotion -Added Zyrtec hs status post Prednisone 40mg daily x3days. -Benadryl changed to hydroxyzine as needed for itching. Increase hydroxyzine -Nystatin cream right antecubital area and Bactroban ointment left lower anterior leg pustules Possible early cellulitis of left hip: Empiric Treatment with Keflex and Bactrim. Improved discontinued antibiotics LLE Edema: patient with chronic b/l lower extremity nonpitting edema however L worse than the R -b/l doppler U/S negative for DVT -MADIE gilbert DVT prophylaxis: Lovenox Discharge Planning NH when arranged Problem Qualifiers (1) Sacral pressure ulcer: Qualified Code: L89.151 - Decubitus ulcer of sacral region, stage 1 Pritesh Morgan MD Jul 14, 2016 10:45
[2016-07-14 12:00] VITALS: BP 110/56; PULSE 75; RESP 18; TEMP 97.3; O2SAT 92
[2016-07-14 16:00] VITALS: BP 118/64; PULSE 66; RESP 18; TEMP 97.2; O2SAT 96
[2016-07-14] MEDS: NYSTATIN SUSP 500,000 U/5 ML CUP SWISH-SWAL SCH ×2 (17:54→22:38)
[2016-07-14 20:00] VITALS: BP 112/74; PULSE 81; RESP 18; TEMP 96.2; O2SAT 99
[2016-07-14] MEDS: CETIRIZINE HCL 10 MG TAB PO SCH (22:34)
[2016-07-14] MEDS: SERTRALINE HCL 100 MG TAB PO SCH (22:35)
[2016-07-15] VITALS: BP 135/68; PULSE 78; RESP 18; TEMP 97; O2SAT 98
[2016-07-15] MEDS: NYSTATIN 100,000 UNIT/GM CREAM 15 GM TOPICAL SCH ×4 (00:56→18:28)
[2016-07-15 04:00] VITALS: BP 135/68; PULSE 78; RESP 18; TEMP 97; O2SAT 98
[2016-07-15] MEDS: hydrOXYzine HCL 25 MG TAB PO PRN ×3 (05:55→21:07)
[2016-07-15] MEDS: metroNIDAZOLE 500 MG TAB PO SCH ×3 (05:55→21:07)
[2016-07-15] MEDS: ACETAMINOPHEN/HYDROcodone 325 MG/7.5 MG TAB PO PRN ×3 (05:56→18:17)
[2016-07-15 07:50] VITALS: BP 97/62; PULSE 70; RESP 20; TEMP 96.4; O2SAT 93
[2016-07-15] MEDS: LACTOBACILLUS ACIDOPHILUS TAB PO SCH ×2 (09:18→21:07)
[2016-07-15] MEDS: ASPIRIN EC 81 MG TABEC PO SCH (09:18)
[2016-07-15] MEDS: LISINOPRIL 20 MG TAB PO SCH (09:18)
[2016-07-15] MEDS: FAMOTIDINE 20 MG TAB PO SCH ×2 (09:18→21:06)
[2016-07-15] MEDS: ENOXAPARIN SODIUM 40 MG/0.4 ML SYRINGE SQ SCH (09:19)
[2016-07-15] MEDS: SODIUM CHLORIDE 0.9% FLUSH 5 ML FLUSH FLUSH SCH ×2 (09:19→21:00)
[2016-07-15] MEDS: NYSTATIN SUSP 500,000 U/5 ML CUP SWISH-SWAL SCH ×4 (09:19→21:06)
[2016-07-15] MEDS: ONDANSETRON HCL 4 MG/2 ML VIAL IV PUSH PRN ×2 (09:19→18:17)
[2016-07-15] MEDS: FUROSEMIDE 20 MG TAB PO SCH (09:19)
[2016-07-15] MEDS: CALAMINE/PRAMOXINE LOTION 180 ML BTL TOPICAL SCH ×2 (09:22→21:08)
[2016-07-15] MEDS: MUPIROCIN 2% CREAM 15 GM TOPICAL SCH ×2 (09:23→21:08)
--- NOTE | 2016-07-15 09:32 | HHI.PR ---
Subjective Remarks F/U C diff. Stool smears no diarrhea. Not eating waiting for outside food brought in by dw RN Objective Vitals Vital Signs Date Time Temp Pulse Resp B/P Pulse Ox O2 Delivery O2 Flow Rate FiO2 07/15/16 04:00 97.0 78 18 135/68 98 07/15/16 00:00 97.0 78 18 135/68 98 07/14/16 20:00 96.2 81 18 112/74 99 07/14/16 16:00 97.2 66 18 118/64 96 07/14/16 12:00 97.3 75 18 110/56 92 I/O 07/14/16 07/14/16 07/14/16 07/15/16 07/15/16 07/15/16 07:00 15:00 23:00 07:00 15:00 23:00 Intake Total 480 ml Balance 480 ml Intake Oral 480 ml # Voids 2 3 2 # Bowel Movements 1 Result Diagram: 07/13/16 0751 07/13/16 0751 Objective Remarks GENERAL: Well-developed well-nourished. Morbidly obese. In no acute distress. No signs of dehydration SKIN: Warm and dry. Improving erythema back areas. New maculopapular rash right antecubital area consistent with tinea. Also has pustules left lower anterior leg HEENT: Normocephalic. Pupils equal and round. Mucous membranes pink and moist. CARDIOVASCULAR: Regular rate and rhythm. No murmur appreciated. RESPIRATORY: No accessory muscle use. Clear to auscultation. Breath sounds equal bilaterally. GASTROINTESTINAL: Abdomen soft, non-tender, nondistended. Bowel sounds x4. MUSCULOSKELETAL: Left lateral hip with area of improving induration and warmth, no erythema or TTP. No clubbing or cyanosis. Mild to moderate nonpitting edema bilaterally, left worse than right. NEUROLOGICAL: Awake and alert. No focal neurological deficits. Moves upper and lower extremities spontaneously. Normal speech. PSYCHIATRIC: Appropriate mood and affect; insight and judgment normal. Procedures none Date of Insertion: Jun 23, 2016 A/P Problem List: (1) Total self-care deficit ICD Code: R41.89 Status: Acute (2) Sacral pressure ulcer ICD Code: L89.159 Status: Acute (3) Loose stools ICD Code: R19.5 Status: Acute (4) Elevated TSH ICD Code: R94.6 Status: Acute (5) Arthritis ICD Code: M19.90 Status: Chronic Assessment and Plan 70 y/o female with a history of obesity, arthritis, HTN and anxiety presented with: Total self care deficit -Case management consult for SNF placement. Insurance won't pay for SNF. 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 -Removed Delcid catheter Resolved Sacral pressure ulcer -Wound care consulted, recommended barrier cream -Turn every Q2H -Reconsulted wound care secondary to denuded skin right flank/back which is improving C diff -Improving labs stable. Continue Flagyl till July 18 and Lactinex. Chronic kidney disease stage III. Monitor for dehydration and avoid nephrotoxins discontinue meloxicam. Improving. Subclinical hypothyroidism: TSH mildly elevated at 6.72. T3 and T4 within normal limits. -Repeat thyroid function test in 46 weeks as outpatient. Arthritis, chronic -Continue home meloxicam with GI protection for pain control Left Hip Pain with Left Lumbar Radiculopathy: with numbness to left anterior thigh -T-L Spine MRI showed mild spinal stenosis at L3-4, mild to moderate spinal stenosis at L4-5 and possibly with mild mass effect/impingement and transiting left L5 nerve root with subarticular recess -consulted neurosurgery, ordered C-spine MRI which just showed mild degenerative changes, discussed with Dr. Dennison, no intervention needed -left hip xray showed moderate to severe left hip osteoarthritis with considerable osteophytosis and apparent large inferior joint body, pain control with oral [place], outpatient orthopedic follow-up check MRI left hip no osteomyelitis Dermatitis/Rash: Improving -DC'd macrobid -Caladryl lotion -Added Zyrtec hs status post Prednisone 40mg daily x3days. -Benadryl changed to hydroxyzine as needed for itching. Increase hydroxyzine -Nystatin cream right antecubital area and Bactroban ointment left lower anterior leg pustules Possible early cellulitis of left hip: Empiric Treatment with Keflex and Bactrim. Improved discontinued antibiotics LLE Edema: patient with chronic b/l lower extremity nonpitting edema however L worse than the R -b/l doppler U/S negative for DVT -MADIE gilbert DVT prophylaxis: Lovenox Discharge Planning NH when arranged Problem Qualifiers (1) Sacral pressure ulcer: Qualified Code: L89.151 - Decubitus ulcer of sacral region, stage 1 Pritesh Morgan MD Jul 15, 2016 09:32
[2016-07-15 11:50] VITALS: BP 122/63; PULSE 74; RESP 20; TEMP 96.5; O2SAT 96
[2016-07-15 15:50] VITALS: BP 127/85; PULSE 70; RESP 20; TEMP 97.8; O2SAT 97
[2016-07-15 20:00] VITALS: BP 120/69; PULSE 78; RESP 16; TEMP 96.7; O2SAT 94
[2016-07-15] MEDS: CETIRIZINE HCL 10 MG TAB PO SCH (21:06)
[2016-07-15] MEDS: SERTRALINE HCL 100 MG TAB PO SCH (21:07)
[2016-07-16] VITALS (7 sets, daily range): BP systolic 116–151; BP diastolic 53–71; PULSE 74–79; RESP 16–22; TEMP 97–98.5; O2SAT 95–99
[2016-07-16] MEDS: ONDANSETRON HCL 4 MG/2 ML VIAL IV PUSH PRN ×3 (00:14→22:45)
[2016-07-16] MEDS: ACETAMINOPHEN/HYDROcodone 325 MG/7.5 MG TAB PO PRN ×5 (00:15→22:45)
[2016-07-16] MEDS: NYSTATIN 100,000 UNIT/GM CREAM 15 GM TOPICAL SCH ×5 (06:00→22:57)
--- NOTE | 2016-07-16 07:49 | HHI.PR ---
Subjective Remarks Follow-up CVA. 4 formed BM yesterday. Patient with improved oral intake. Discussed with RN Objective Vitals Vital Signs Date Time Temp Pulse Resp B/P Pulse Ox O2 Delivery O2 Flow Rate FiO2 07/16/16 04:00 97.8 79 20 151/69 97 07/16/16 01:58 16 07/16/16 00:00 97.0 77 22 135/55 97 07/15/16 20:00 96.7 78 16 120/69 94 07/15/16 15:50 97.8 70 20 127/85 97 07/15/16 11:50 96.5 74 20 122/63 96 07/15/16 07:50 96.4 70 20 97/62 93 I/O 07/15/16 07/15/16 07/15/16 07/16/16 07/16/16 07/16/16 07:00 15:00 23:00 07:00 15:00 23:00 Intake Total 480 ml 360 ml 360 ml Balance 480 ml 360 ml 360 ml Intake Oral 480 ml 360 ml 360 ml # Voids 2 6 1 # Bowel Movements 2 1 Result Diagram: 07/13/16 0751 07/13/16 0751 Imaging Last Impressions Hip MRI 07/05/16 0000 Signed Impressions: Service Date/Time: Tuesday, July 05, 2016 10:51 - CONCLUSION: 1. There is osteopenia primary degenerative changes at both hips, left greater than right. 2. Prominent osteophyte along the inferior articulating surface of the proximal left femur. 3. Nonspecific edema in the gluteus and hamstring muscles. 4. No acute bony fracture. Javier Fishman MD Lower Extremity Ultrasound 06/29/16 0000 Signed Impressions: Service Date/Time: Wednesday, June 29, 2016 10:07 - CONCLUSION: Negative for deep venous thrombosis. Alfredo Sanders MD FACR Cervical Spine MRI 06/27/16 0000 Signed Impressions: Service Date/Time: Monday, June 27, 2016 11:09 - CONCLUSION: Mild degenerative changes otherwise unremarkable cervical spine. Anselmo Leavitt MD Thoracic Spine MRI 06/25/16 0000 Signed Impressions: Service Date/Time: June 19:36 - CONCLUSION: 1. No fracture or subluxation of the thoracic spine. 2. Mild and fairly diffuse degenerative changes as above. 3. Mild left foraminal encroachment at T8/T9 and T9/T10. 4. No significant spinal stenosis at any level. 5. Incidentally seen tiny right and small left pleural effusions, nonspecific. Jeevan Arreola MD Lumbar Spine MRI 06/25/16 0000 Signed Impressions: Service Date/Time: June 19:36 - CONCLUSION: 1. Multilevel lumbar degenerative changes as detailed above. 2. Mild spinal stenosis at L3/L4 without evidence of transiting nerve root impingement. 3. Mild to moderate spinal stenosis at L4/L5 and possibly with mild mass effect/impingement on the transiting left L5 nerve root within the subarticular recess. 4. Mild bilateral foraminal encroachment L3/L4 and L4/L5. Mild to moderate bilateral foraminal encroachment at L5/S1. 5. No fracture or subluxation of the lumbar spine. Jeevan Arreola MD Hip and Pelvis X-Ray 06/25/16 0000 Signed Impressions: Service Date/Time: June 20:27 - CONCLUSION: Moderate to severe left hip' right is with considerable osteophytosis and an apparent large inferior joint body. No fracture or subluxation. Jeevan Arreola MD Chest X-Ray 06/23/16 1402 Signed Impressions: Service Date/Time: Thursday, June 23, 2016 14:13 - CONCLUSION: Normal examination. Elías Moreno MD Objective Remarks GENERAL: Well-developed well-nourished. Morbidly obese. In no acute distress. SKIN: Warm and dry. Improving erythema back areas. New maculopapular rash right antecubital area consistent with tinea. Also has pustules left lower anterior leg HEENT: Normocephalic. Pupils equal and round. Mucous membranes pink and moist. Oral thrush noted CARDIOVASCULAR: Regular rate and rhythm. No murmur appreciated. RESPIRATORY: No accessory muscle use. Clear to auscultation. Breath sounds equal bilaterally. GASTROINTESTINAL: Abdomen soft, non-tender, nondistended. Bowel sounds x4. MUSCULOSKELETAL: Left lateral hip with area of improving induration and warmth, no erythema or TTP. No clubbing or cyanosis. Mild to moderate nonpitting edema bilaterally, left worse than right. NEUROLOGICAL: Awake and alert. No focal neurological deficits. Moves upper and lower extremities spontaneously. Normal speech. PSYCHIATRIC: Appropriate mood and affect; insight and judgment normal. Procedures none Date of Insertion: Jun 23, 2016 A/P Problem List: (1) Total self-care deficit ICD Code: R41.89 Status: Acute (2) Sacral pressure ulcer ICD Code: L89.159 Status: Acute (3) Loose stools ICD Code: R19.5 Status: Acute (4) Elevated TSH ICD Code: R94.6 Status: Acute (5) Arthritis ICD Code: M19.90 Status: Chronic Assessment and Plan 70 y/o female with a history of obesity, arthritis, HTN and anxiety presented with: Total self care deficit -Case management consult for SNF placement. Insurance won't pay for SNF. 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 -Removed Delcid catheter Resolved Sacral pressure ulcer -Wound care consulted, recommended barrier cream -Turn every Q2H -Reconsulted wound care secondary to denuded skin right flank/back which is improving C diff -Improving labs stable. Continue Flagyl till July 18 and Lactinex. Oral thrush Nystatin swish and swallow for 14 days Chronic kidney disease stage III. Monitor for dehydration and avoid nephrotoxins discontinue meloxicam. Improving. Subclinical hypothyroidism: TSH mildly elevated at 6.72. T3 and T4 within normal limits. -Repeat thyroid function test in 46 weeks as outpatient. Arthritis, chronic -Continue home meloxicam with GI protection for pain control Left Hip Pain with Left Lumbar Radiculopathy: with numbness to left anterior thigh -T-L Spine MRI showed mild spinal stenosis at L3-4, mild to moderate spinal stenosis at L4-5 and possibly with mild mass effect/impingement and transiting left L5 nerve root with subarticular recess -consulted neurosurgery, ordered C-spine MRI which just showed mild degenerative changes, discussed with Dr. Dennison, no intervention needed -left hip xray showed moderate to severe left hip osteoarthritis with considerable osteophytosis and apparent large inferior joint body, pain control with oral [place], outpatient orthopedic follow-up check MRI left hip no osteomyelitis Dermatitis/Rash: Improving -DC'd macrobid -Caladryl lotion -Added Zyrtec hs status post Prednisone 40mg daily x3days. -Benadryl changed to hydroxyzine as needed for itching. Increase hydroxyzine -Nystatin cream right antecubital area and Bactroban ointment left lower anterior leg pustules Possible early cellulitis of left hip: Empiric Treatment with Keflex and Bactrim. Improved discontinued antibiotics LLE Edema: patient with chronic b/l lower extremity nonpitting edema however L worse than the R -b/l doppler U/S negative for DVT -MADIE hose DVT prophylaxis: Lovenox Discharge Planning NH when arranged Problem Qualifiers (1) Sacral pressure ulcer: Qualified Code: L89.151 - Decubitus ulcer of sacral region, stage 1 Pritesh Morgan MD Jul 16, 2016 07:49
[2016-07-16] MEDS: hydrOXYzine HCL 25 MG TAB PO PRN ×3 (08:23→22:44)
[2016-07-16] MEDS: metroNIDAZOLE 500 MG TAB PO SCH ×3 (08:23→22:55)
[2016-07-16] MEDS: FUROSEMIDE 20 MG TAB PO SCH (10:19)
[2016-07-16] MEDS: FAMOTIDINE 20 MG TAB PO SCH ×2 (10:19→22:44)
[2016-07-16] MEDS: ENOXAPARIN SODIUM 40 MG/0.4 ML SYRINGE SQ SCH (10:19)
[2016-07-16] MEDS: NYSTATIN SUSP 500,000 U/5 ML CUP SWISH-SWAL SCH ×4 (10:19→22:44)
[2016-07-16] MEDS: LACTOBACILLUS ACIDOPHILUS TAB PO SCH ×2 (10:19→22:44)
[2016-07-16] MEDS: LISINOPRIL 20 MG TAB PO SCH (10:20)
[2016-07-16] MEDS: SODIUM CHLORIDE 0.9% FLUSH 5 ML FLUSH FLUSH SCH ×2 (10:20→22:52)
[2016-07-16] MEDS: MUPIROCIN 2% CREAM 15 GM TOPICAL SCH ×2 (10:22→22:56)
[2016-07-16] MEDS: CALAMINE/PRAMOXINE LOTION 180 ML BTL TOPICAL SCH ×2 (10:22→22:55)
[2016-07-16] MEDS: ASPIRIN EC 81 MG TABEC PO SCH (10:27)
[2016-07-16] MEDS ORDERED: NYST1000 SWISH-SWAL (12:19)
[2016-07-16] MEDS: CETIRIZINE HCL 10 MG TAB PO SCH (22:44)
[2016-07-16] MEDS: SERTRALINE HCL 100 MG TAB PO SCH (22:44)
[2016-07-17] MEDS: metroNIDAZOLE 500 MG TAB PO SCH ×3 (05:04→21:05)
[2016-07-17] MEDS: ACETAMINOPHEN/HYDROcodone 325 MG/7.5 MG TAB PO PRN ×4 (05:04→21:06)
[2016-07-17] MEDS: hydrOXYzine HCL 25 MG TAB PO PRN ×4 (05:05→22:34)
[2016-07-17] MEDS: ONDANSETRON HCL 4 MG/2 ML VIAL IV PUSH PRN ×2 (05:05→21:32)
[2016-07-17] MEDS: NYSTATIN 100,000 UNIT/GM CREAM 15 GM TOPICAL SCH ×4 (05:06→22:35)
[2016-07-17] MEDS: LACTOBACILLUS ACIDOPHILUS TAB PO SCH ×2 (09:45→21:06)
[2016-07-17] MEDS: LISINOPRIL 20 MG TAB PO SCH (09:45)
[2016-07-17] MEDS: ASPIRIN EC 81 MG TABEC PO SCH (09:45)
[2016-07-17] MEDS: FUROSEMIDE 20 MG TAB PO SCH (09:46)
[2016-07-17] MEDS: ENOXAPARIN SODIUM 40 MG/0.4 ML SYRINGE SQ SCH (09:46)
[2016-07-17] MEDS: SODIUM CHLORIDE 0.9% FLUSH 5 ML FLUSH FLUSH SCH ×2 (09:46→21:00)
[2016-07-17] MEDS: FAMOTIDINE 20 MG TAB PO SCH ×2 (09:46→21:06)
[2016-07-17] MEDS: CALAMINE/PRAMOXINE LOTION 180 ML BTL TOPICAL SCH ×2 (09:50→21:00)
[2016-07-17] MEDS: MUPIROCIN 2% CREAM 15 GM TOPICAL SCH ×2 (09:50→21:00)
[2016-07-17] MEDS: NYSTATIN SUSP 500,000 U/5 ML CUP SWISH-SWAL SCH ×4 (09:50→21:07)
--- NOTE | 2016-07-17 09:57 | HHI.PR ---
Subjective Remarks Follow-up C. difficile. 2 small loose stool this morning. Denies nausea and a little pain. Participating with physical therapy. Discussed with RN Objective Vitals Vital Signs Date Time Temp Pulse Resp B/P Pulse Ox O2 Delivery O2 Flow Rate FiO2 07/17/16 06:43 16 07/16/16 23:03 98.5 79 16 118/55 95 07/16/16 20:00 97.1 76 16 125/71 97 07/16/16 15:50 98.0 74 20 116/57 96 07/16/16 11:50 98.1 79 20 119/53 96 I/O 07/16/16 07/16/16 07/16/16 07/17/16 07/17/16 07/17/16 07:00 15:00 23:00 07:00 15:00 23:00 Intake Total 120 ml 500 ml Balance 120 ml 500 ml Intake Oral 120 ml 500 ml IV Total 0 ml # Voids 7 2 # Bowel Movements 1 0 Result Diagram: 07/13/16 0751 07/13/16 0751 Imaging Last Impressions Hip MRI 07/05/16 0000 Signed Impressions: Service Date/Time: Tuesday, July 05, 2016 10:51 - CONCLUSION: 1. There is osteopenia primary degenerative changes at both hips, left greater than right. 2. Prominent osteophyte along the inferior articulating surface of the proximal left femur. 3. Nonspecific edema in the gluteus and hamstring muscles. 4. No acute bony fracture. Javier Fishman MD Lower Extremity Ultrasound 06/29/16 0000 Signed Impressions: Service Date/Time: Wednesday, June 29, 2016 10:07 - CONCLUSION: Negative for deep venous thrombosis. Alfredo Sanders MD FACR Cervical Spine MRI 06/27/16 0000 Signed Impressions: Service Date/Time: Monday, June 27, 2016 11:09 - CONCLUSION: Mild degenerative changes otherwise unremarkable cervical spine. Anselmo Leavitt MD Thoracic Spine MRI 06/25/16 0000 Signed Impressions: Service Date/Time: June 19:36 - CONCLUSION: 1. No fracture or subluxation of the thoracic spine. 2. Mild and fairly diffuse degenerative changes as above. 3. Mild left foraminal encroachment at T8/T9 and T9/T10. 4. No significant spinal stenosis at any level. 5. Incidentally seen tiny right and small left pleural effusions, nonspecific. Jeevan Arreola MD Lumbar Spine MRI 06/25/16 0000 Signed Impressions: Service Date/Time: June 19:36 - CONCLUSION: 1. Multilevel lumbar degenerative changes as detailed above. 2. Mild spinal stenosis at L3/L4 without evidence of transiting nerve root impingement. 3. Mild to moderate spinal stenosis at L4/L5 and possibly with mild mass effect/impingement on the transiting left L5 nerve root within the subarticular recess. 4. Mild bilateral foraminal encroachment L3/L4 and L4/L5. Mild to moderate bilateral foraminal encroachment at L5/S1. 5. No fracture or subluxation of the lumbar spine. Jeevan Arreola MD Hip and Pelvis X-Ray 06/25/16 0000 Signed Impressions: Service Date/Time: June 20:27 - CONCLUSION: Moderate to severe left hip' right is with considerable osteophytosis and an apparent large inferior joint body. No fracture or subluxation. Jeevan Arreola MD Chest X-Ray 06/23/16 1402 Signed Impressions: Service Date/Time: Thursday, June 23, 2016 14:13 - CONCLUSION: Normal examination. Elías Moreno MD Objective Remarks GENERAL: Well-developed well-nourished. Morbidly obese. In no acute distress. Signs of dehydration SKIN: Warm and dry. Improving erythema back areas. New maculopapular rash right antecubital area consistent with tinea. Also has pustules left lower anterior leg HEENT: Normocephalic. Pupils equal and round. Mucous membranes pink and moist. Oral thrush noted CARDIOVASCULAR: Regular rate and rhythm. No murmur appreciated. RESPIRATORY: No accessory muscle use. Clear to auscultation. Breath sounds equal bilaterally. GASTROINTESTINAL: Abdomen soft, non-tender, nondistended. Bowel sounds x4. MUSCULOSKELETAL: Left lateral hip with area of improving induration and warmth, no erythema or TTP. No clubbing or cyanosis. Mild to moderate nonpitting edema bilaterally, left worse than right. NEUROLOGICAL: Awake and alert. No focal neurological deficits. Moves upper and lower extremities spontaneously. Normal speech. PSYCHIATRIC: Appropriate mood and affect; insight and judgment normal. Procedures none Date of Insertion: Jun 23, 2016 A/P Problem List: (1) Total self-care deficit ICD Code: R41.89 Status: Acute (2) Sacral pressure ulcer ICD Code: L89.159 Status: Acute (3) Loose stools ICD Code: R19.5 Status: Acute (4) Elevated TSH ICD Code: R94.6 Status: Acute (5) Arthritis ICD Code: M19.90 Status: Chronic Assessment and Plan 70 y/o female with a history of obesity, arthritis, HTN and anxiety presented with: Total self care deficit -Case management consult for SNF placement. Insurance won't pay for SNF. 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 -Removed Delcid catheter Resolved Sacral pressure ulcer -Wound care consulted, recommended barrier cream -Turn every Q2H -Reconsulted wound care secondary to denuded skin right flank/back which is improving C diff -Improving. Continue Flagyl till July 18 and Lactinex. Repeat C. difficile Oral thrush Nystatin swish and swallow for 14 days till July 28 Chronic kidney disease stage III. Monitor for dehydration and avoid nephrotoxins discontinue meloxicam. Improving. Subclinical hypothyroidism: TSH mildly elevated at 6.72. T3 and T4 within normal limits. -Repeat thyroid function test in 46 weeks as outpatient. Arthritis, chronic -Stable on Lortab counseled regarding narcotics Left Hip Pain with Left Lumbar Radiculopathy: with numbness to left anterior thigh -T-L Spine MRI showed mild spinal stenosis at L3-4, mild to moderate spinal stenosis at L4-5 and possibly with mild mass effect/impingement and transiting left L5 nerve root with subarticular recess -consulted neurosurgery, ordered C-spine MRI which just showed mild degenerative changes, discussed with Dr. Dennison, no intervention needed -left hip xray showed moderate to severe left hip osteoarthritis with considerable osteophytosis and apparent large inferior joint body, pain control with oral [place], outpatient orthopedic follow-up MRI left hip no osteomyelitis Dermatitis/Rash: Improving -DC'd macrobid -Caladryl lotion -Added Zyrtec hs status post Prednisone 40mg daily x3days. -Benadryl changed to hydroxyzine as needed for itching. Increase hydroxyzine -Nystatin cream right antecubital area and Bactroban ointment left lower anterior leg pustules Resolved cellulitis of left hip: S/p Empiric Treatment with Keflex and Bactrim. LLE Edema: patient with chronic b/l lower extremity nonpitting edema however L worse than the R -b/l doppler U/S negative for DVT -MADIE hosdavid DVT prophylaxis: Lovenox Discharge Planning NH when arranged Problem Qualifiers (1) Sacral pressure ulcer: Qualified Code: L89.151 - Decubitus ulcer of sacral region, stage 1 Pritesh Morgan MD Jul 17, 2016 09:57
[2016-07-17 10:09] VITALS: BP 133/63; PULSE 110; RESP 22; TEMP 97.1; O2SAT 94
[2016-07-17 13:26] VITALS: BP 135/70; PULSE 70; RESP 18; TEMP 98.4; O2SAT 96
[2016-07-17 16:00] VITALS: BP 121/54; PULSE 76; RESP 22; TEMP 98.5; O2SAT 96
[2016-07-17 20:00] VITALS: BP 124/60; PULSE 76; RESP 18; TEMP 96.8; O2SAT 96
[2016-07-17] MEDS: SERTRALINE HCL 100 MG TAB PO SCH (21:06)
[2016-07-17] MEDS: CETIRIZINE HCL 10 MG TAB PO SCH (21:06)
[2016-07-18] VITALS: BP 105/54; PULSE 78; RESP 18; TEMP 97.2; O2SAT 95
[2016-07-18 04:00] VITALS: BP 124/68; PULSE 75; RESP 18; TEMP 97; O2SAT 96
[2016-07-18] MEDS: NYSTATIN 100,000 UNIT/GM CREAM 15 GM TOPICAL SCH ×3 (05:29→17:06)
[2016-07-18] MEDS: hydrOXYzine HCL 25 MG TAB PO PRN ×3 (05:47→22:15)
[2016-07-18] MEDS: ACETAMINOPHEN/HYDROcodone 325 MG/7.5 MG TAB PO PRN ×4 (05:49→22:15)
--- NOTE | 2016-07-18 07:36 | HHI.PR ---
Subjective Remarks resting comfortably with no distress. denies pain. no fever. Objective Vitals Vital Signs Date Time Temp Pulse Resp B/P Pulse Ox O2 Delivery O2 Flow Rate FiO2 07/18/16 06:49 16 07/18/16 04:00 97.0 75 18 124/68 96 07/18/16 00:00 97.2 78 18 105/54 95 07/17/16 20:00 96.8 76 18 124/60 96 07/17/16 16:00 98.5 76 22 121/54 96 07/17/16 13:26 98.4 70 18 135/70 96 07/17/16 10:09 97.1 110 22 133/63 94 I/O 07/17/16 07/17/16 07/17/16 07/18/16 07/18/16 07/18/16 07:00 15:00 23:00 07:00 15:00 23:00 Intake Total 500 ml 960 ml 480 ml Output Total 1 ml Balance 500 ml 959 ml 480 ml Intake Oral 500 ml 960 ml 480 ml IV Total 0 ml Output Urine Total 1 ml # Voids 2 1 2 1 # Bowel Movements 0 1 1 1 Imaging Last Impressions Hip MRI 07/05/16 0000 Signed Impressions: Service Date/Time: Tuesday, July 05, 2016 10:51 - CONCLUSION: 1. There is osteopenia primary degenerative changes at both hips, left greater than right. 2. Prominent osteophyte along the inferior articulating surface of the proximal left femur. 3. Nonspecific edema in the gluteus and hamstring muscles. 4. No acute bony fracture. Javier Fishman MD Lower Extremity Ultrasound 06/29/16 0000 Signed Impressions: Service Date/Time: Wednesday, June 29, 2016 10:07 - CONCLUSION: Negative for deep venous thrombosis. Alfredo Sanders MD FACR Cervical Spine MRI 06/27/16 0000 Signed Impressions: Service Date/Time: Monday, June 27, 2016 11:09 - CONCLUSION: Mild degenerative changes otherwise unremarkable cervical spine. Anselmo Leavitt MD Thoracic Spine MRI 06/25/16 0000 Signed Impressions: Service Date/Time: June 19:36 - CONCLUSION: 1. No fracture or subluxation of the thoracic spine. 2. Mild and fairly diffuse degenerative changes as above. 3. Mild left foraminal encroachment at T8/T9 and T9/T10. 4. No significant spinal stenosis at any level. 5. Incidentally seen tiny right and small left pleural effusions, nonspecific. Jeevan Arreola MD Lumbar Spine MRI 06/25/16 0000 Signed Impressions: Service Date/Time: June 19:36 - CONCLUSION: 1. Multilevel lumbar degenerative changes as detailed above. 2. Mild spinal stenosis at L3/L4 without evidence of transiting nerve root impingement. 3. Mild to moderate spinal stenosis at L4/L5 and possibly with mild mass effect/impingement on the transiting left L5 nerve root within the subarticular recess. 4. Mild bilateral foraminal encroachment L3/L4 and L4/L5. Mild to moderate bilateral foraminal encroachment at L5/S1. 5. No fracture or subluxation of the lumbar spine. Jeevan Arreola MD Hip and Pelvis X-Ray 06/25/16 0000 Signed Impressions: Service Date/Time: June 20:27 - CONCLUSION: Moderate to severe left hip' right is with considerable osteophytosis and an apparent large inferior joint body. No fracture or subluxation. Jeevan Arreola MD Chest X-Ray 06/23/16 1402 Signed Impressions: Service Date/Time: Thursday, June 23, 2016 14:13 - CONCLUSION: Normal examination. Elías Moreno MD Objective Remarks GENERAL: This is a well-nourished, well-developed patient, in no apparent distress. CARDIOVASCULAR: Regular rate and regular rhythm without murmurs, gallops, or rubs. RESPIRATORY: Clear to auscultation. Breath sounds equal bilaterally. No wheezes , rales, or rhonchi. GASTROINTESTINAL: Abdomen soft, non-tender, nondistended. Normal, active bowel sounds MUSCULOSKELETAL: Extremities with bilateral pedal edema NEURO: Alert & Oriented x4 to person, place, time, situation. Moves all ext x4 Procedures none Medications and IVs Current Medications IV Flush 2 ml 2 ml UNSCH PRN IVF FLUSH AFTER USING IV ACCESS; Start 06/23/16 at 14:15; Stop 06/23/16 at 20:00; Status DC Sodium Chloride 1,000 ml @ 1,000 mls/hr Q1H ONCE IV Last administered on 15:37; Start 06/23/16 at 14:02; Stop 06/23/16 at 15:01; Status DC Ceftriaxone Sodium/Sodium Chloride (Rocephin Inj/NS Inj) 100 ml @ 200 mls/hr ONCE ONCE IV Last administered on 06/23/16 18:25; Start 06/23/16 at 18:00; Stop 06/23/16 at 18:29; Status DC IV Flush (NS Flush) 2 ml UNSCH PRN FLUSH FLUSH AFTER USING IV ACCESS; Start at 20:00 IV Flush (NS Flush) 2 ml BID FLUSH Last administered on 07/17/16 21:00; Start 06/23/16 at 21:00 Enoxaparin Sodium (Lovenox Inj) 40 mg Q24H SQ Last administered on 07/17/16 09 :46; Start 06/24/16 at 09:00 Naloxone HCl 0.4 mg 0.4 mg UNSCH PRN IV SEE LABEL COMMENTS; Start 06/23/16 at 20:00 Levofloxacin/ Dextrose (Levaquin 750 Mg Premix Inj) 150 ml @ 100 mls/hr Q24H IV Last administered on 06/23/16 22:06; Start 06/23/16 at 21:00; Stop 06/24/16 at 09:56; Status DC Acetaminophen/ Hydrocodone Bitart ([place] 5-325 Mg) 1 tab Q6H PRN PO pain >5 Last administered on 06/23/16 22:31; Start 06/23/16 at 22:30; Stop 06/24/16 at 09:59; Status DC Nitrofurantoin Macrocrystals (Macrobid) 100 mg BIDPC PO Last administered on 10:28; Start 06/24/16 at 18:00; Stop 06/25/16 at 13:15; Status DC Amlodipine Besylate (Norvasc) 10 mg DAILY PO Last administered on 07/17/16 09: 46; Start 06/24/16 at 10:00 Aspirin (Ecotrin Ec) 81 mg DAILY PO Last administered on 07/17/16 09:45; Start 06/25/16 at 09:00 Famotidine (Pepcid) 20 mg BID PO Last administered on 07/09/16 09:23; Start at 21:00; Stop 07/09/16 at 15:35; Status DC Furosemide (Lasix) 20 mg DAILY PO Last administered on 07/17/16 09:46; Start 06/25/16 at 09:00 Lisinopril (Prinivil) 20 mg DAILY PO Last administered on 07/17/16 09:45; Start 06/24/16 at 10:00 Meloxicam (Mobic) 7.5 mg BID PO Last administered on 07/08/16 10:10; Start 06/24/16 at 21:00; Stop 07/08/16 at 17:43; Status DC Potassium Chloride (KCl) 10 meq DAILY PO Last administered on 07/09/16 09:23; Start 06/25/16 at 09:00; Stop 07/09/16 at 14:35; Status DC Sertraline HCl (Zoloft) 200 mg HS PO Last administered on 07/17/16 21:06; Start 06/24/16 at 21:00 Diphenhydramine HCl (Benadryl) 25 mg Q6H PRN PO itching Last administered on 11:45; Start 06/25/16 at 18:00; Stop 06/30/16 at 14:15; Status DC Acetaminophen (Tylenol) 650 mg Q6H PRN PO PAIN SCALE 1 TO 2; Start 06/26/16 at 16:15 Acetaminophen/ Hydrocodone Bitart ([place] 5-325 Mg) 1 tab Q4H PRN PO PAIN SCALE 3 TO 5 Last administered on 06/28/16 15:28; Start 06/26/16 at 16:15 Acetaminophen/ Hydrocodone Bitart ([place] 7.5-325 Mg) 1 tab Q4H PRN PO PAIN SCALE 6 TO 10 Last administered on 07/18/16 05:49; Start 06/26/16 at 16:15 Calamine/Pramoxine (Caladryl Lotion) 1 applic Q12HR TOPICAL Last administered on 07/17/16 21:00; Start 06/27/16 at 09:00 Trimethoprim/ Sulfamethoxazole (Bactrim 400-80 Mg) 1 tab Q12HR PO Last administered on 07/08/16 10:12; Start 06/28/16 at 12:00; Stop 07/08/16 at 11:59 ; Status DC Cephalexin Monohydrate (Keflex) 250 mg Q8HR PO Last administered on 07/08/16 05:31; Start 06/28/16 at 14:00; Stop 07/08/16 at 13:59; Status DC Cetirizine HCl (ZyrTEC) 10 mg HS PO Last administered on 07/17/16 21:06; Start 06/29/16 at 21:00 Prednisone (Deltasone) 40 mg DAILY PO Last administered on 07/02/16 10:56; Start 06/29/16 at 10:00; Stop 07/02/16 at 09:59; Status DC Hydroxyzine HCl (Atarax) 10 mg Q6H PRN PO itching/anxiety Last administered on 07/02/16 11:03; Start 06/30/16 at 14:15; Stop 07/02/16 at 12:08; Status DC Hydroxyzine HCl (Atarax) 25 mg Q6H PRN PO ITCHING/ANXIETY Last administered on 07/08/16 17:16; Start 07/02/16 at 12:15; Stop 07/08/16 at 17:43; Status DC Metronidazole (Flagyl) 500 mg Q8HR PO Last administered on 07/17/16 21:05; Start 07/04/16 at 02:58; Stop 07/18/16 at 02:57; Status DC Lactobacillus Acidophilus (Lactinex) 1 tab Q12HR PO Last administered on 21:06; Start 07/04/16 at 21:00 Naloxone HCl (Narcan Inj) 0.4 mg UNSCH X1 PRN IV PUSH RESP DEPRESSION OR HYPOTENSION; Start 07/07/16 at 08:00; Stop 07/09/16 at 07:59; Status DC Ondansetron HCl (Zofran Inj) 4 mg Q6H PRN IV PUSH nausea Last administered on 21:32; Start 07/07/16 at 13:45 Nystatin (Mycostatin Cream) 1 applic Q12HR TOPICAL Last administered on 10:54; Start 07/07/16 at 15:00; Stop 07/13/16 at 13:48; Status DC Hydroxyzine HCl (Atarax) 50 mg Q6H PRN PO ITCHING/ANXIETY Last administered on 07/18/16 05:47; Start 07/08/16 at 18:15 Famotidine (Pepcid) 10 mg BID PO Last administered on 07/17/16 21:06; Start at 21:00 Miscellaneous (Pill Splitter) 1 ea UNSCH PRN OTHER SEE LABEL COMMENTS Last administered on 07/11/16 08:23; Start 07/09/16 at 15:45 Potassium Chloride (KCl) 10 meq ONCE ONCE PO Last administered on 07/10/16 17 :52; Start 07/10/16 at 17:30; Stop 07/10/16 at 17:31; Status DC Potassium Chloride (KCl) 10 meq ONCE ONCE PO Last administered on 07/11/16 11 :38; Start 07/11/16 at 11:30; Stop 07/11/16 at 11:31; Status DC Potassium Chloride (KCl) 20 meq ONCE ONCE PO Last administered on 07/13/16 11 :46; Start 07/13/16 at 12:00; Stop 07/13/16 at 12:01; Status DC Nystatin (Mycostatin Cream) 1 applic Q6HR TOPICAL Last administered on 05:29; Start 07/13/16 at 13:30 Mupirocin (Bactroban 2% Cream) 1 applic Q12HR TOPICAL Last administered on 07/17 21:00; Start 07/13/16 at 13:30 Nystatin (Mycostatin Liq) 5 ml QID SWISH-SWAL Last administered on 07/17/16 21:07; Start 07/14/16 at 18:00; Stop 07/28/16 at 17:59 Date of Insertion: Jun 23, 2016 A/P Assessment and Plan A/P Total self care deficit -Case management consult for SNF placement. Insurance won't pay for SNF. 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 treated with Flagyl. Oral thrush Nystatin swish and swallow for 14 days till July 28 Chronic kidney disease stage III. Monitor for dehydration and avoid nephrotoxins discontinue meloxicam. Improving. Subclinical hypothyroidism: TSH mildly elevated at 6.72. T3 and T4 within normal limits. -Repeat thyroid function test in 46 weeks as outpatient. Arthritis, chronic -Stable on Lortab counseled regarding narcotics Left Hip Pain with Left Lumbar Radiculopathy: with numbness to left anterior thigh -T-L Spine MRI showed mild spinal stenosis at L3-4, mild to moderate spinal stenosis at L4-5 and possibly with mild mass effect/impingement and transiting left L5 nerve root with subarticular recess -consulted neurosurgery, ordered C-spine MRI which just showed mild degenerative changes, previouslt discussed with Dr. Dennison, no intervention needed -left hip xray showed moderate to severe left hip osteoarthritis with considerable osteophytosis and apparent large inferior joint body, pain control with oral [place], outpatient orthopedic follow-up MRI left hip no osteomyelitis Dermatitis/Rash: Improving -DC'd macrobid -Caladryl lotion -Added Zyrtec hs status post Prednisone 40mg daily x3days. -Benadryl changed to hydroxyzine as needed for itching. Increase hydroxyzine -Nystatin cream right antecubital area and Bactroban ointment left lower anterior leg pustules Resolved cellulitis of left hip: S/p Empiric Treatment with Keflex and Bactrim. LLE Edema: patient with chronic b/l lower extremity nonpitting edema however L worse than the R -b/l doppler U/S negative for DVT -MADIE hose Discharge Planning awaiting placement- awaiting Medicaid. Jessenia Brantley MD Jul 18, 2016 07:36
[2016-07-18 08:00] VITALS: BP 134/57; PULSE 77; RESP 16; TEMP 97.6; O2SAT 96
[2016-07-18] MEDS: CALAMINE/PRAMOXINE LOTION 180 ML BTL TOPICAL SCH ×2 (09:00→22:25)
[2016-07-18] MEDS: LACTOBACILLUS ACIDOPHILUS TAB PO SCH ×2 (09:00→22:16)
[2016-07-18] MEDS: FAMOTIDINE 20 MG TAB PO SCH ×2 (09:19→22:15)
[2016-07-18] MEDS: NYSTATIN SUSP 500,000 U/5 ML CUP SWISH-SWAL SCH ×4 (09:19→22:16)
[2016-07-18] MEDS: FUROSEMIDE 20 MG TAB PO SCH (09:20)
[2016-07-18] MEDS: ASPIRIN EC 81 MG TABEC PO SCH (09:20)
[2016-07-18] MEDS: LISINOPRIL 20 MG TAB PO SCH (09:20)
[2016-07-18] MEDS: ENOXAPARIN SODIUM 40 MG/0.4 ML SYRINGE SQ SCH (09:20)
[2016-07-18] MEDS: SODIUM CHLORIDE 0.9% FLUSH 5 ML FLUSH FLUSH SCH ×2 (09:21→22:17)
[2016-07-18] MEDS: MUPIROCIN 2% CREAM 15 GM TOPICAL SCH ×2 (09:22→22:18)
[2016-07-18] MEDS: ONDANSETRON HCL 4 MG/2 ML VIAL IV PUSH PRN ×2 (09:29→17:10)
[2016-07-18 12:00] VITALS: BP 131/69; PULSE 75; RESP 16; TEMP 96.3; O2SAT 98
[2016-07-18 16:00] VITALS: BP 142/69; PULSE 72; RESP 16; TEMP 95.9; O2SAT 97
[2016-07-18] MEDS: SODIUM CHLORIDE 0.9% FLUSH 5 ML FLUSH FLUSH PRN (17:10)
[2016-07-18 20:00] VITALS: BP 131/58; PULSE 76; RESP 18; TEMP 96.4; O2SAT 97
[2016-07-18 21:32] LABS: C. DIFF EPI 027 PRESUMPTIVE NEGATIVE (NEGATIVE)
[2016-07-18] MEDS: CETIRIZINE HCL 10 MG TAB PO SCH (22:15)
[2016-07-18] MEDS: SERTRALINE HCL 100 MG TAB PO SCH (22:32)
[2016-07-18 22:49] LABS: C. DIFF TOXIN PCR POSITIVE (NEGATIVE)
[2016-07-19 00:21] VITALS: BP 134/59; PULSE 76; RESP 20; TEMP 96.7
[2016-07-19 04:00] VITALS: BP 123/59; PULSE 79; RESP 18; TEMP 96.9; O2SAT 95
[2016-07-19] MEDS: hydrOXYzine HCL 25 MG TAB PO PRN ×3 (05:50→20:34)
[2016-07-19] MEDS: ACETAMINOPHEN/HYDROcodone 325 MG/7.5 MG TAB PO PRN ×4 (05:50→23:25)
[2016-07-19] MEDS: NYSTATIN 100,000 UNIT/GM CREAM 15 GM TOPICAL SCH ×5 (05:51→23:27)
[2016-07-19 08:00] VITALS: BP 126/61; PULSE 76; RESP 16; TEMP 96.4; O2SAT 95
[2016-07-19] MEDS: CALAMINE/PRAMOXINE LOTION 180 ML BTL TOPICAL SCH ×2 (09:00→20:40)
[2016-07-19] MEDS: ASPIRIN EC 81 MG TABEC PO SCH (09:00)
[2016-07-19] MEDS: MUPIROCIN 2% CREAM 15 GM TOPICAL SCH ×2 (09:00→20:38)
[2016-07-19] MEDS: FUROSEMIDE 20 MG TAB PO SCH (09:13)
[2016-07-19] MEDS: LISINOPRIL 20 MG TAB PO SCH (09:13)
[2016-07-19] MEDS: ONDANSETRON HCL 4 MG/2 ML VIAL IV PUSH PRN (09:13)
[2016-07-19] MEDS: LACTOBACILLUS ACIDOPHILUS TAB PO SCH ×2 (09:13→20:35)
[2016-07-19] MEDS: NYSTATIN SUSP 500,000 U/5 ML CUP SWISH-SWAL SCH ×4 (09:13→20:34)
[2016-07-19] MEDS: ENOXAPARIN SODIUM 40 MG/0.4 ML SYRINGE SQ SCH (09:13)
[2016-07-19] MEDS: FAMOTIDINE 20 MG TAB PO SCH ×2 (09:14→20:35)
[2016-07-19] MEDS: SODIUM CHLORIDE 0.9% FLUSH 5 ML FLUSH FLUSH SCH ×2 (09:14→20:36)
--- NOTE | 2016-07-19 11:30 | HHI.PR ---
Subjective Remarks Patient has no complaints. c/o chronic hip pain but otherwise no issues. Objective Vitals Vital Signs Date Time Temp Pulse Resp B/P Pulse Ox O2 Delivery O2 Flow Rate FiO2 07/19/16 08:00 96.4 76 16 126/61 95 07/19/16 04:00 96.9 79 18 123/59 95 07/19/16 00:21 96.7 76 20 134/59 07/18/16 20:00 96.4 76 18 131/58 97 07/18/16 16:00 95.9 72 16 142/69 97 07/18/16 12:00 96.3 75 16 131/69 98 I/O 07/18/16 07/18/16 07/18/16 07/19/16 07/19/16 07/19/16 07:00 15:00 23:00 07:00 15:00 23:00 Intake Total 480 ml Balance 480 ml Intake Oral 480 ml IV Total 0 ml # Voids 1 2 2 # Bowel Movements 1 1 Objective Remarks Gen morbidly obese CV RRR. no r/m/g Ext 5/5 LE strength Procedures none Medications and IVs Current Medications IV Flush 2 ml 2 ml UNSCH PRN IVF FLUSH AFTER USING IV ACCESS; Start 06/23/16 at 14:15; Stop 06/23/16 at 20:00; Status DC Sodium Chloride 1,000 ml @ 1,000 mls/hr Q1H ONCE IV Last administered on 15:37; Start 06/23/16 at 14:02; Stop 06/23/16 at 15:01; Status DC Ceftriaxone Sodium/Sodium Chloride (Rocephin Inj/NS Inj) 100 ml @ 200 mls/hr ONCE ONCE IV Last administered on 06/23/16 18:25; Start 06/23/16 at 18:00; Stop 06/23/16 at 18:29; Status DC IV Flush (NS Flush) 2 ml UNSCH PRN FLUSH FLUSH AFTER USING IV ACCESS Last administered on 07/18/16 17:10; Start 06/23/16 at 20:00 IV Flush (NS Flush) 2 ml BID FLUSH Last administered on 07/19/16 09:14; Start 06/23/16 at 21:00 Enoxaparin Sodium (Lovenox Inj) 40 mg Q24H SQ Last administered on 07/19/16 09 :13; Start 06/24/16 at 09:00 Naloxone HCl 0.4 mg 0.4 mg UNSCH PRN IV SEE LABEL COMMENTS; Start 06/23/16 at 20:00 Levofloxacin/ Dextrose (Levaquin 750 Mg Premix Inj) 150 ml @ 100 mls/hr Q24H IV Last administered on 06/23/16 22:06; Start 06/23/16 at 21:00; Stop 06/24/16 at 09:56; Status DC Acetaminophen/ Hydrocodone Bitart ([place] 5-325 Mg) 1 tab Q6H PRN PO pain >5 Last administered on 06/23/16 22:31; Start 06/23/16 at 22:30; Stop 06/24/16 at 09:59; Status DC Nitrofurantoin Macrocrystals (Macrobid) 100 mg BIDPC PO Last administered on 10:28; Start 06/24/16 at 18:00; Stop 06/25/16 at 13:15; Status DC Amlodipine Besylate (Norvasc) 10 mg DAILY PO Last administered on 07/19/16 09: 13; Start 06/24/16 at 10:00 Aspirin (Ecotrin Ec) 81 mg DAILY PO Last administered on 07/19/16 09:00; Start 06/25/16 at 09:00 Famotidine (Pepcid) 20 mg BID PO Last administered on 07/09/16 09:23; Start at 21:00; Stop 07/09/16 at 15:35; Status DC Furosemide (Lasix) 20 mg DAILY PO Last administered on 07/19/16 09:13; Start 06/25/16 at 09:00 Lisinopril (Prinivil) 20 mg DAILY PO Last administered on 07/19/16 09:13; Start 06/24/16 at 10:00 Meloxicam (Mobic) 7.5 mg BID PO Last administered on 07/08/16 10:10; Start 06/24/16 at 21:00; Stop 07/08/16 at 17:43; Status DC Potassium Chloride (KCl) 10 meq DAILY PO Last administered on 07/09/16 09:23; Start 06/25/16 at 09:00; Stop 07/09/16 at 14:35; Status DC Sertraline HCl (Zoloft) 200 mg HS PO Last administered on 07/18/16 22:32; Start 06/24/16 at 21:00 Diphenhydramine HCl (Benadryl) 25 mg Q6H PRN PO itching Last administered on 11:45; Start 06/25/16 at 18:00; Stop 06/30/16 at 14:15; Status DC Acetaminophen (Tylenol) 650 mg Q6H PRN PO PAIN SCALE 1 TO 2; Start 06/26/16 at 16:15 Acetaminophen/ Hydrocodone Bitart ([place] 5-325 Mg) 1 tab Q4H PRN PO PAIN SCALE 3 TO 5 Last administered on 06/28/16 15:28; Start 06/26/16 at 16:15 Acetaminophen/ Hydrocodone Bitart ([place] 7.5-325 Mg) 1 tab Q4H PRN PO PAIN SCALE 6 TO 10 Last administered on 07/19/16 05:50; Start 06/26/16 at 16:15 Calamine/Pramoxine (Caladryl Lotion) 1 applic Q12HR TOPICAL Last administered on 07/17/16 21:00; Start 06/27/16 at 09:00 Trimethoprim/ Sulfamethoxazole (Bactrim 400-80 Mg) 1 tab Q12HR PO Last administered on 07/08/16 10:12; Start 06/28/16 at 12:00; Stop 07/08/16 at 11:59 ; Status DC Cephalexin Monohydrate (Keflex) 250 mg Q8HR PO Last administered on 07/08/16 05:31; Start 06/28/16 at 14:00; Stop 07/08/16 at 13:59; Status DC Cetirizine HCl (ZyrTEC) 10 mg HS PO Last administered on 07/18/16 22:15; Start 06/29/16 at 21:00 Prednisone (Deltasone) 40 mg DAILY PO Last administered on 07/02/16 10:56; Start 06/29/16 at 10:00; Stop 07/02/16 at 09:59; Status DC Hydroxyzine HCl (Atarax) 10 mg Q6H PRN PO itching/anxiety Last administered on 07/02/16 11:03; Start 06/30/16 at 14:15; Stop 07/02/16 at 12:08; Status DC Hydroxyzine HCl (Atarax) 25 mg Q6H PRN PO ITCHING/ANXIETY Last administered on 07/08/16 17:16; Start 07/02/16 at 12:15; Stop 07/08/16 at 17:43; Status DC Metronidazole (Flagyl) 500 mg Q8HR PO Last administered on 07/17/16 21:05; Start 07/04/16 at 02:58; Stop 07/18/16 at 02:57; Status DC Lactobacillus Acidophilus (Lactinex) 1 tab Q12HR PO Last administered on 09:13; Start 07/04/16 at 21:00 Naloxone HCl (Narcan Inj) 0.4 mg UNSCH X1 PRN IV PUSH RESP DEPRESSION OR HYPOTENSION; Start 07/07/16 at 08:00; Stop 07/09/16 at 07:59; Status DC Ondansetron HCl (Zofran Inj) 4 mg Q6H PRN IV PUSH nausea Last administered on 09:13; Start 07/07/16 at 13:45 Nystatin (Mycostatin Cream) 1 applic Q12HR TOPICAL Last administered on 10:54; Start 07/07/16 at 15:00; Stop 07/13/16 at 13:48; Status DC Hydroxyzine HCl (Atarax) 50 mg Q6H PRN PO ITCHING/ANXIETY Last administered on 07/19/16 05:50; Start 07/08/16 at 18:15 Famotidine (Pepcid) 10 mg BID PO Last administered on 07/19/16 09:14; Start at 21:00 Miscellaneous (Pill Splitter) 1 ea UNSCH PRN OTHER SEE LABEL COMMENTS Last administered on 07/11/16 08:23; Start 07/09/16 at 15:45 Potassium Chloride (KCl) 10 meq ONCE ONCE PO Last administered on 07/10/16 17 :52; Start 07/10/16 at 17:30; Stop 07/10/16 at 17:31; Status DC Potassium Chloride (KCl) 10 meq ONCE ONCE PO Last administered on 07/11/16 11 :38; Start 07/11/16 at 11:30; Stop 07/11/16 at 11:31; Status DC Potassium Chloride (KCl) 20 meq ONCE ONCE PO Last administered on 07/13/16 11 :46; Start 07/13/16 at 12:00; Stop 07/13/16 at 12:01; Status DC Nystatin (Mycostatin Cream) 1 applic Q6HR TOPICAL Last administered on 05:51; Start 07/13/16 at 13:30 Mupirocin (Bactroban 2% Cream) 1 applic Q12HR TOPICAL Last administered on 07/19 09:00; Start 07/13/16 at 13:30 Nystatin (Mycostatin Liq) 5 ml QID SWISH-SWAL Last administered on 07/19/16 09:13; Start 07/14/16 at 18:00; Stop 07/28/16 at 17:59 Date of Insertion: Jun 23, 2016 A/P Problem List: (1) Total self-care deficit ICD Code: R41.89 Status: Acute (2) Sacral pressure ulcer ICD Code: L89.159 Status: Acute (3) Loose stools ICD Code: R19.5 Status: Acute (4) Elevated TSH ICD Code: R94.6 Status: Acute (5) Arthritis ICD Code: M19.90 Status: Chronic Assessment and Plan Total self care deficit -Case management consult for SNF placement. Insurance won't pay for SNF. 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 treated with Flagyl. Oral thrush Nystatin swish and swallow for 14 days till July 28 Chronic kidney disease stage III. Monitor for dehydration and avoid nephrotoxins discontinue meloxicam. Improving. Subclinical hypothyroidism: TSH mildly elevated at 6.72. T3 and T4 within normal limits. -Repeat thyroid function test in 46 weeks as outpatient. Arthritis, chronic -Stable on Lortab counseled regarding narcotics Left Hip Pain with Left Lumbar Radiculopathy: with numbness to left anterior thigh -T-L Spine MRI showed mild spinal stenosis at L3-4, mild to moderate spinal stenosis at L4-5 and possibly with mild mass effect/impingement and transiting left L5 nerve root with subarticular recess -consulted neurosurgery, ordered C-spine MRI which just showed mild degenerative changes, previouslt discussed with Dr. Dennison, no intervention needed -left hip xray showed moderate to severe left hip osteoarthritis with considerable osteophytosis and apparent large inferior joint body, pain control with oral [place], outpatient orthopedic follow-up MRI left hip no osteomyelitis Dermatitis/Rash: Improving -DC'd macrobid -Caladryl lotion -Added Zyrtec hs status post Prednisone 40mg daily x3days. -Benadryl changed to hydroxyzine as needed for itching. Increase hydroxyzine -Nystatin cream right antecubital area and Bactroban ointment left lower anterior leg pustules Resolved cellulitis of left hip: S/p Empiric Treatment with Keflex and Bactrim. LLE Edema: patient with chronic b/l lower extremity nonpitting edema however L worse than the R -b/l doppler U/S negative for DVT -MADIE hose Discharge Planning awaiting placement- awaiting Medicaid. Problem Qualifiers (1) Sacral pressure ulcer: Qualified Code: L89.151 - Decubitus ulcer of sacral region, stage 1 Paola Carballo MD Jul 19, 2016 11:30
[2016-07-19 12:00] VITALS: BP 110/51; PULSE 76; RESP 16; TEMP 96.1; O2SAT 95
[2016-07-19 16:00] VITALS: BP 120/68; PULSE 78; RESP 16; TEMP 96.7; O2SAT 95
[2016-07-19 20:00] VITALS: BP 106/56; PULSE 74; RESP 18; TEMP 97.4; O2SAT 98
[2016-07-19] MEDS: ACETAMINOPHEN/HYDROcodone 325 MG/5 MG TAB PO PRN (20:35)
[2016-07-19] MEDS: CETIRIZINE HCL 10 MG TAB PO SCH (20:35)
[2016-07-19] MEDS: SERTRALINE HCL 100 MG TAB PO SCH (20:36)
[2016-07-20] VITALS: BP 106/55; PULSE 78; RESP 18; TEMP 96.8; O2SAT 98
[2016-07-20 04:00] VITALS: BP 108/57; PULSE 77; RESP 18; TEMP 95.9; O2SAT 97
[2016-07-20] MEDS: hydrOXYzine HCL 25 MG TAB PO PRN ×3 (05:35→17:59)
[2016-07-20] MEDS: ACETAMINOPHEN/HYDROcodone 325 MG/7.5 MG TAB PO PRN ×5 (05:35→22:12)
[2016-07-20] MEDS: NYSTATIN 100,000 UNIT/GM CREAM 15 GM TOPICAL SCH ×3 (05:39→18:00)
[2016-07-20 08:00] VITALS: BP 139/75; PULSE 77; RESP 18; TEMP 96.6; O2SAT 97
[2016-07-20] MEDS: CALAMINE/PRAMOXINE LOTION 180 ML BTL TOPICAL SCH ×2 (09:00→22:00)
[2016-07-20] MEDS: MUPIROCIN 2% CREAM 15 GM TOPICAL SCH ×2 (09:00→22:07)
[2016-07-20] MEDS: NYSTATIN SUSP 500,000 U/5 ML CUP SWISH-SWAL SCH ×4 (09:43→22:08)
[2016-07-20] MEDS: ASPIRIN EC 81 MG TABEC PO SCH (09:43)
[2016-07-20] MEDS: ENOXAPARIN SODIUM 40 MG/0.4 ML SYRINGE SQ SCH (09:43)
[2016-07-20] MEDS: FAMOTIDINE 20 MG TAB PO SCH ×2 (09:44→22:07)
[2016-07-20] MEDS: LACTOBACILLUS ACIDOPHILUS TAB PO SCH ×2 (09:44→22:07)
[2016-07-20] MEDS: FUROSEMIDE 20 MG TAB PO SCH (09:44)
[2016-07-20] MEDS: SODIUM CHLORIDE 0.9% FLUSH 5 ML FLUSH FLUSH SCH ×2 (09:44→22:06)
[2016-07-20] MEDS: LISINOPRIL 20 MG TAB PO SCH (09:44)
[2016-07-20] MEDS: ONDANSETRON HCL 4 MG/2 ML VIAL IV PUSH PRN (09:46)
[2016-07-20 12:00] VITALS: BP 102/62; PULSE 74; RESP 18; TEMP 97.1; O2SAT 96
[2016-07-20 16:00] VITALS: BP 117/64; PULSE 78; RESP 18; TEMP 96.9; O2SAT 96
--- NOTE | 2016-07-20 16:20 | HHI.PR ---
Subjective Remarks patient has no complaints. She stated she sat up with PT today and felt unbalanced. Her at the bedside. Objective Vitals Vital Signs Date Time Temp Pulse Resp B/P Pulse Ox O2 Delivery O2 Flow Rate FiO2 07/20/16 12:00 97.1 74 18 102/62 96 07/20/16 11:11 18 07/20/16 08:00 96.6 77 18 139/75 97 07/20/16 04:00 95.9 77 18 108/57 97 07/20/16 00:00 96.8 78 18 106/55 98 07/19/16 21:35 18 07/19/16 20:00 97.4 74 18 106/56 98 I/O 07/19/16 07/19/16 07/19/16 07/20/16 07/20/16 07/20/16 07:00 15:00 23:00 07:00 15:00 23:00 Intake Total 0 ml 480 ml 240 ml 600 ml Balance 0 ml 480 ml 240 ml 600 ml Intake Oral 480 ml 240 ml 600 ml IV Total 0 ml # Voids 2 1 1 2 # Bowel Movements 1 0 0 Objective Remarks Gen morbidly obese CV RRR. no r/m/g Ext 5/5 LE strength Procedures none Medications and IVs Current Medications IV Flush 2 ml 2 ml UNSCH PRN IVF FLUSH AFTER USING IV ACCESS; Start 06/23/16 at 14:15; Stop 06/23/16 at 20:00; Status DC Sodium Chloride 1,000 ml @ 1,000 mls/hr Q1H ONCE IV Last administered on 15:37; Start 06/23/16 at 14:02; Stop 06/23/16 at 15:01; Status DC Ceftriaxone Sodium/Sodium Chloride (Rocephin Inj/NS Inj) 100 ml @ 200 mls/hr ONCE ONCE IV Last administered on 06/23/16 18:25; Start 06/23/16 at 18:00; Stop 06/23/16 at 18:29; Status DC IV Flush (NS Flush) 2 ml UNSCH PRN FLUSH FLUSH AFTER USING IV ACCESS Last administered on 07/18/16 17:10; Start 06/23/16 at 20:00 IV Flush (NS Flush) 2 ml BID FLUSH Last administered on 07/20/16 09:44; Start 06/23/16 at 21:00 Enoxaparin Sodium (Lovenox Inj) 40 mg Q24H SQ Last administered on 07/20/16 09 :43; Start 06/24/16 at 09:00 Naloxone HCl 0.4 mg 0.4 mg UNSCH PRN IV SEE LABEL COMMENTS; Start 06/23/16 at 20:00 Levofloxacin/ Dextrose (Levaquin 750 Mg Premix Inj) 150 ml @ 100 mls/hr Q24H IV Last administered on 06/23/16 22:06; Start 06/23/16 at 21:00; Stop 06/24/16 at 09:56; Status DC Acetaminophen/ Hydrocodone Bitart ([facility] 5-325 Mg) 1 tab Q6H PRN PO pain >5 Last administered on 06/23/16 22:31; Start 06/23/16 at 22:30; Stop 06/24/16 at 09:59; Status DC Nitrofurantoin Macrocrystals (Macrobid) 100 mg BIDPC PO Last administered on 10:28; Start 06/24/16 at 18:00; Stop 06/25/16 at 13:15; Status DC Amlodipine Besylate (Norvasc) 10 mg DAILY PO Last administered on 07/20/16 09: 44; Start 06/24/16 at 10:00 Aspirin (Ecotrin Ec) 81 mg DAILY PO Last administered on 07/20/16 09:43; Start 06/25/16 at 09:00 Famotidine (Pepcid) 20 mg BID PO Last administered on 07/09/16 09:23; Start at 21:00; Stop 07/09/16 at 15:35; Status DC Furosemide (Lasix) 20 mg DAILY PO Last administered on 07/20/16 09:44; Start 06/25/16 at 09:00 Lisinopril (Prinivil) 20 mg DAILY PO Last administered on 07/20/16 09:44; Start 06/24/16 at 10:00 Meloxicam (Mobic) 7.5 mg BID PO Last administered on 07/08/16 10:10; Start 06/24/16 at 21:00; Stop 07/08/16 at 17:43; Status DC Potassium Chloride (KCl) 10 meq DAILY PO Last administered on 07/09/16 09:23; Start 06/25/16 at 09:00; Stop 07/09/16 at 14:35; Status DC Sertraline HCl (Zoloft) 200 mg HS PO Last administered on 07/19/16 20:36; Start 06/24/16 at 21:00 Diphenhydramine HCl (Benadryl) 25 mg Q6H PRN PO itching Last administered on 11:45; Start 06/25/16 at 18:00; Stop 06/30/16 at 14:15; Status DC Acetaminophen (Tylenol) 650 mg Q6H PRN PO PAIN SCALE 1 TO 2; Start 06/26/16 at 16:15 Acetaminophen/ Hydrocodone Bitart ([facility] 5-325 Mg) 1 tab Q4H PRN PO PAIN SCALE 3 TO 5 Last administered on 07/19/16 20:35; Start 06/26/16 at 16:15 Acetaminophen/ Hydrocodone Bitart ([facility] 7.5-325 Mg) 1 tab Q4H PRN PO PAIN SCALE 6 TO 10 Last administered on 07/20/16 15:14; Start 06/26/16 at 16:15 Calamine/Pramoxine (Caladryl Lotion) 1 applic Q12HR TOPICAL Last administered on 07/17/16 21:00; Start 06/27/16 at 09:00 Trimethoprim/ Sulfamethoxazole (Bactrim 400-80 Mg) 1 tab Q12HR PO Last administered on 07/08/16 10:12; Start 06/28/16 at 12:00; Stop 07/08/16 at 11:59 ; Status DC Cephalexin Monohydrate (Keflex) 250 mg Q8HR PO Last administered on 07/08/16 05:31; Start 06/28/16 at 14:00; Stop 07/08/16 at 13:59; Status DC Cetirizine HCl (ZyrTEC) 10 mg HS PO Last administered on 07/19/16 20:35; Start 06/29/16 at 21:00 Prednisone (Deltasone) 40 mg DAILY PO Last administered on 07/02/16 10:56; Start 06/29/16 at 10:00; Stop 07/02/16 at 09:59; Status DC Hydroxyzine HCl (Atarax) 10 mg Q6H PRN PO itching/anxiety Last administered on 07/02/16 11:03; Start 06/30/16 at 14:15; Stop 07/02/16 at 12:08; Status DC Hydroxyzine HCl (Atarax) 25 mg Q6H PRN PO ITCHING/ANXIETY Last administered on 07/08/16 17:16; Start 07/02/16 at 12:15; Stop 07/08/16 at 17:43; Status DC Metronidazole (Flagyl) 500 mg Q8HR PO Last administered on 07/17/16 21:05; Start 07/04/16 at 02:58; Stop 07/18/16 at 02:57; Status DC Lactobacillus Acidophilus (Lactinex) 1 tab Q12HR PO Last administered on 09:44; Start 07/04/16 at 21:00 Naloxone HCl (Narcan Inj) 0.4 mg UNSCH X1 PRN IV PUSH RESP DEPRESSION OR HYPOTENSION; Start 07/07/16 at 08:00; Stop 07/09/16 at 07:59; Status DC Ondansetron HCl (Zofran Inj) 4 mg Q6H PRN IV PUSH nausea Last administered on 09:46; Start 07/07/16 at 13:45 Nystatin (Mycostatin Cream) 1 applic Q12HR TOPICAL Last administered on 10:54; Start 07/07/16 at 15:00; Stop 07/13/16 at 13:48; Status DC Hydroxyzine HCl (Atarax) 50 mg Q6H PRN PO ITCHING/ANXIETY Last administered on 07/20/16 12:01; Start 07/08/16 at 18:15 Famotidine (Pepcid) 10 mg BID PO Last administered on 07/20/16 09:44; Start at 21:00 Miscellaneous (Pill Splitter) 1 ea UNSCH PRN OTHER SEE LABEL COMMENTS Last administered on 07/11/16 08:23; Start 07/09/16 at 15:45 Potassium Chloride (KCl) 10 meq ONCE ONCE PO Last administered on 07/10/16 17 :52; Start 07/10/16 at 17:30; Stop 07/10/16 at 17:31; Status DC Potassium Chloride (KCl) 10 meq ONCE ONCE PO Last administered on 07/11/16 11 :38; Start 07/11/16 at 11:30; Stop 07/11/16 at 11:31; Status DC Potassium Chloride (KCl) 20 meq ONCE ONCE PO Last administered on 07/13/16 11 :46; Start 07/13/16 at 12:00; Stop 07/13/16 at 12:01; Status DC Nystatin (Mycostatin Cream) 1 applic Q6HR TOPICAL Last administered on 09:45; Start 07/13/16 at 13:30 Mupirocin (Bactroban 2% Cream) 1 applic Q12HR TOPICAL Last administered on 07/20 09:00; Start 07/13/16 at 13:30 Nystatin (Mycostatin Liq) 5 ml QID SWISH-SWAL Last administered on 07/20/16 15:14; Start 07/14/16 at 18:00; Stop 07/28/16 at 17:59 Date of Insertion: Jun 23, 2016 A/P Problem List: (1) Total self-care deficit ICD Code: R41.89 Status: Acute (2) Sacral pressure ulcer ICD Code: L89.159 Status: Acute (3) Loose stools ICD Code: R19.5 Status: Acute (4) Elevated TSH ICD Code: R94.6 Status: Acute (5) Arthritis ICD Code: M19.90 Status: Chronic Assessment and Plan Total self care deficit -Case management consult for SNF placement. Insurance won't pay for SNF. 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 treated with Flagyl. Oral thrush Nystatin swish and swallow for 14 days till July 28 Chronic kidney disease stage III. Monitor for dehydration and avoid nephrotoxins discontinue meloxicam. Improving. Subclinical hypothyroidism: TSH mildly elevated at 6.72. T3 and T4 within normal limits. -Repeat thyroid function test in 46 weeks as outpatient. Arthritis, chronic -Stable on Lortab counseled regarding narcotics Left Hip Pain with Left Lumbar Radiculopathy: with numbness to left anterior thigh -T-L Spine MRI showed mild spinal stenosis at L3-4, mild to moderate spinal stenosis at L4-5 and possibly with mild mass effect/impingement and transiting left L5 nerve root with subarticular recess -consulted neurosurgery, ordered C-spine MRI which just showed mild degenerative changes, previouslt discussed with Dr. Dennison, no intervention needed -left hip xray showed moderate to severe left hip osteoarthritis with considerable osteophytosis and apparent large inferior joint body, pain control with oral [facility], outpatient orthopedic follow-up MRI left hip no osteomyelitis Dermatitis/Rash: Improving -DC'd macrobid -Caladryl lotion -Added Zyrtec hs status post Prednisone 40mg daily x3days. -Benadryl changed to hydroxyzine as needed for itching. Increase hydroxyzine -Nystatin cream right antecubital area and Bactroban ointment left lower anterior leg pustules Resolved cellulitis of left hip: S/p Empiric Treatment with Keflex and Bactrim. LLE Edema: patient with chronic b/l lower extremity nonpitting edema however L worse than the R -b/l doppler U/S negative for DVT -[facility] hose Dispo: awaiting placement- awaiting Medicaid. Problem Qualifiers (1) Sacral pressure ulcer: Qualified Code: L89.151 - Decubitus ulcer of sacral region, stage 1 Paola Carballo MD Jul 20, 2016 16:19
[2016-07-20 20:00] VITALS: BP 106/56; PULSE 81; RESP 18; TEMP 97.1; O2SAT 92
[2016-07-20] MEDS: CETIRIZINE HCL 10 MG TAB PO SCH (22:06)
[2016-07-20] MEDS: SERTRALINE HCL 100 MG TAB PO SCH (22:07)
[2016-07-21] VITALS (7 sets, daily range): BP systolic 88–148; BP diastolic 56–68; PULSE 63–79; RESP 16–18; TEMP 96–97.5; O2SAT 92–98
[2016-07-21] MEDS: NYSTATIN 100,000 UNIT/GM CREAM 15 GM TOPICAL SCH ×4 (00:12→17:18)
[2016-07-21] MEDS: hydrOXYzine HCL 25 MG TAB PO PRN ×4 (00:13→17:16)
[2016-07-21] MEDS: ACETAMINOPHEN/HYDROcodone 325 MG/7.5 MG TAB PO PRN ×5 (05:10→21:20)
[2016-07-21] MEDS: ENOXAPARIN SODIUM 40 MG/0.4 ML SYRINGE SQ SCH (09:21)
[2016-07-21] MEDS: LACTOBACILLUS ACIDOPHILUS TAB PO SCH ×2 (09:21→21:19)
[2016-07-21] MEDS: FUROSEMIDE 20 MG TAB PO SCH (09:22)
[2016-07-21] MEDS: NYSTATIN SUSP 500,000 U/5 ML CUP SWISH-SWAL SCH ×4 (09:22→21:00)
[2016-07-21] MEDS: ASPIRIN EC 81 MG TABEC PO SCH (09:22)
[2016-07-21] MEDS: FAMOTIDINE 20 MG TAB PO SCH ×2 (09:22→21:19)
[2016-07-21] MEDS: LISINOPRIL 20 MG TAB PO SCH (09:22)
[2016-07-21] MEDS: SODIUM CHLORIDE 0.9% FLUSH 5 ML FLUSH FLUSH SCH ×2 (09:24→21:20)
[2016-07-21] MEDS: MUPIROCIN 2% CREAM 15 GM TOPICAL SCH ×2 (09:28→21:27)
[2016-07-21] MEDS: CALAMINE/PRAMOXINE LOTION 180 ML BTL TOPICAL SCH ×2 (09:28→21:00)
--- NOTE | 2016-07-21 09:28 | HHI.PR ---
Subjective Remarks Patient has no complaints. She stated she used the incentive spirometry today. Still waiting for placement. Objective Vitals Vital Signs Date Time Temp Pulse Resp B/P Pulse Ox O2 Delivery O2 Flow Rate FiO2 07/21/16 04:00 96.1 75 18 144/64 98 07/21/16 00:00 96.6 78 18 121/57 92 07/20/16 20:00 97.1 81 18 106/56 92 07/20/16 19:21 18 07/20/16 16:00 96.9 78 18 117/64 96 07/20/16 12:00 97.1 74 18 102/62 96 I/O 07/20/16 07/20/16 07/20/16 07/21/16 07/21/16 07/21/16 07:00 15:00 23:00 07:00 15:00 23:00 Intake Total 240 ml 600 ml 240 ml 240 ml Balance 240 ml 600 ml 240 ml 240 ml Intake Oral 240 ml 600 ml 240 ml 240 ml # Voids 1 2 1 # Bowel Movements 0 Objective Remarks Gen morbidly obese CV RRR. no r/m/g Ext 5/5 LE strength Procedures none Medications and IVs Current Medications IV Flush 2 ml 2 ml UNSCH PRN IVF FLUSH AFTER USING IV ACCESS; Start 06/23/16 at 14:15; Stop 06/23/16 at 20:00; Status DC Sodium Chloride 1,000 ml @ 1,000 mls/hr Q1H ONCE IV Last administered on 15:37; Start 06/23/16 at 14:02; Stop 06/23/16 at 15:01; Status DC Ceftriaxone Sodium/Sodium Chloride (Rocephin Inj/NS Inj) 100 ml @ 200 mls/hr ONCE ONCE IV Last administered on 06/23/16 18:25; Start 06/23/16 at 18:00; Stop 06/23/16 at 18:29; Status DC IV Flush (NS Flush) 2 ml UNSCH PRN FLUSH FLUSH AFTER USING IV ACCESS Last administered on 07/18/16 17:10; Start 06/23/16 at 20:00 IV Flush (NS Flush) 2 ml BID FLUSH Last administered on 07/21/16 09:24; Start 06/23/16 at 21:00 Enoxaparin Sodium (Lovenox Inj) 40 mg Q24H SQ Last administered on 07/21/16 09 :21; Start 06/24/16 at 09:00 Naloxone HCl 0.4 mg 0.4 mg UNSCH PRN IV SEE LABEL COMMENTS; Start 06/23/16 at 20:00 Levofloxacin/ Dextrose (Levaquin 750 Mg Premix Inj) 150 ml @ 100 mls/hr Q24H IV Last administered on 06/23/16 22:06; Start 06/23/16 at 21:00; Stop 06/24/16 at 09:56; Status DC Acetaminophen/ Hydrocodone Bitart ([place] 5-325 Mg) 1 tab Q6H PRN PO pain >5 Last administered on 06/23/16 22:31; Start 06/23/16 at 22:30; Stop 06/24/16 at 09:59; Status DC Nitrofurantoin Macrocrystals (Macrobid) 100 mg BIDPC PO Last administered on 10:28; Start 06/24/16 at 18:00; Stop 06/25/16 at 13:15; Status DC Amlodipine Besylate (Norvasc) 10 mg DAILY PO Last administered on 07/21/16 09: 22; Start 06/24/16 at 10:00 Aspirin (Ecotrin Ec) 81 mg DAILY PO Last administered on 07/21/16 09:22; Start 06/25/16 at 09:00 Famotidine (Pepcid) 20 mg BID PO Last administered on 07/09/16 09:23; Start at 21:00; Stop 07/09/16 at 15:35; Status DC Furosemide (Lasix) 20 mg DAILY PO Last administered on 07/21/16 09:22; Start 06/25/16 at 09:00 Lisinopril (Prinivil) 20 mg DAILY PO Last administered on 07/21/16 09:22; Start 06/24/16 at 10:00 Meloxicam (Mobic) 7.5 mg BID PO Last administered on 07/08/16 10:10; Start 06/24/16 at 21:00; Stop 07/08/16 at 17:43; Status DC Potassium Chloride (KCl) 10 meq DAILY PO Last administered on 07/09/16 09:23; Start 06/25/16 at 09:00; Stop 07/09/16 at 14:35; Status DC Sertraline HCl (Zoloft) 200 mg HS PO Last administered on 07/20/16 22:07; Start 06/24/16 at 21:00 Diphenhydramine HCl (Benadryl) 25 mg Q6H PRN PO itching Last administered on 11:45; Start 06/25/16 at 18:00; Stop 06/30/16 at 14:15; Status DC Acetaminophen (Tylenol) 650 mg Q6H PRN PO PAIN SCALE 1 TO 2; Start 06/26/16 at 16:15 Acetaminophen/ Hydrocodone Bitart ([place] 5-325 Mg) 1 tab Q4H PRN PO PAIN SCALE 3 TO 5 Last administered on 07/19/16 20:35; Start 06/26/16 at 16:15 Acetaminophen/ Hydrocodone Bitart ([place] 7.5-325 Mg) 1 tab Q4H PRN PO PAIN SCALE 6 TO 10 Last administered on 07/21/16 09:23; Start 06/26/16 at 16:15 Calamine/Pramoxine (Caladryl Lotion) 1 applic Q12HR TOPICAL Last administered on 07/17/16 21:00; Start 06/27/16 at 09:00 Trimethoprim/ Sulfamethoxazole (Bactrim 400-80 Mg) 1 tab Q12HR PO Last administered on 07/08/16 10:12; Start 06/28/16 at 12:00; Stop 07/08/16 at 11:59 ; Status DC Cephalexin Monohydrate (Keflex) 250 mg Q8HR PO Last administered on 07/08/16 05:31; Start 06/28/16 at 14:00; Stop 07/08/16 at 13:59; Status DC Cetirizine HCl (ZyrTEC) 10 mg HS PO Last administered on 07/20/16 22:06; Start 06/29/16 at 21:00 Prednisone (Deltasone) 40 mg DAILY PO Last administered on 07/02/16 10:56; Start 06/29/16 at 10:00; Stop 07/02/16 at 09:59; Status DC Hydroxyzine HCl (Atarax) 10 mg Q6H PRN PO itching/anxiety Last administered on 07/02/16 11:03; Start 06/30/16 at 14:15; Stop 07/02/16 at 12:08; Status DC Hydroxyzine HCl (Atarax) 25 mg Q6H PRN PO ITCHING/ANXIETY Last administered on 07/08/16 17:16; Start 07/02/16 at 12:15; Stop 07/08/16 at 17:43; Status DC Metronidazole (Flagyl) 500 mg Q8HR PO Last administered on 07/17/16 21:05; Start 07/04/16 at 02:58; Stop 07/18/16 at 02:57; Status DC Lactobacillus Acidophilus (Lactinex) 1 tab Q12HR PO Last administered on 09:21; Start 07/04/16 at 21:00 Naloxone HCl (Narcan Inj) 0.4 mg UNSCH X1 PRN IV PUSH RESP DEPRESSION OR HYPOTENSION; Start 07/07/16 at 08:00; Stop 07/09/16 at 07:59; Status DC Ondansetron HCl (Zofran Inj) 4 mg Q6H PRN IV PUSH nausea Last administered on 09:46; Start 07/07/16 at 13:45 Nystatin (Mycostatin Cream) 1 applic Q12HR TOPICAL Last administered on 10:54; Start 07/07/16 at 15:00; Stop 07/13/16 at 13:48; Status DC Hydroxyzine HCl (Atarax) 50 mg Q6H PRN PO ITCHING/ANXIETY Last administered on 07/21/16 06:12; Start 07/08/16 at 18:15 Famotidine (Pepcid) 10 mg BID PO Last administered on 07/21/16 09:22; Start at 21:00 Miscellaneous (Pill Splitter) 1 ea UNSCH PRN OTHER SEE LABEL COMMENTS Last administered on 07/11/16 08:23; Start 07/09/16 at 15:45 Potassium Chloride (KCl) 10 meq ONCE ONCE PO Last administered on 07/10/16 17 :52; Start 07/10/16 at 17:30; Stop 07/10/16 at 17:31; Status DC Potassium Chloride (KCl) 10 meq ONCE ONCE PO Last administered on 07/11/16 11 :38; Start 07/11/16 at 11:30; Stop 07/11/16 at 11:31; Status DC Potassium Chloride (KCl) 20 meq ONCE ONCE PO Last administered on 07/13/16 11 :46; Start 07/13/16 at 12:00; Stop 07/13/16 at 12:01; Status DC Nystatin (Mycostatin Cream) 1 applic Q6HR TOPICAL Last administered on 06:11; Start 07/13/16 at 13:30 Mupirocin (Bactroban 2% Cream) 1 applic Q12HR TOPICAL Last administered on 07/20 22:07; Start 07/13/16 at 13:30 Nystatin (Mycostatin Liq) 5 ml QID SWISH-SWAL Last administered on 07/21/16 09:22; Start 07/14/16 at 18:00; Stop 07/28/16 at 17:59 Date of Insertion: Jun 23, 2016 A/P Problem List: (1) Total self-care deficit ICD Code: R41.89 Status: Acute (2) Sacral pressure ulcer ICD Code: L89.159 Status: Acute (3) Loose stools ICD Code: R19.5 Status: Acute (4) Elevated TSH ICD Code: R94.6 Status: Acute (5) Arthritis ICD Code: M19.90 Status: Chronic Assessment and Plan Total self care deficit -Case management consult for SNF placement. Insurance won't pay for SNF. 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 treated with Flagyl. Oral thrush Nystatin swish and swallow for 14 days till July 28 Chronic kidney disease stage III. Monitor for dehydration and avoid nephrotoxins discontinue meloxicam. Improving. Subclinical hypothyroidism: TSH mildly elevated at 6.72. T3 and T4 within normal limits. -Repeat thyroid function test in 46 weeks as outpatient. Arthritis, chronic -Stable on Lortab counseled regarding narcotics Left Hip Pain with Left Lumbar Radiculopathy: with numbness to left anterior thigh -T-L Spine MRI showed mild spinal stenosis at L3-4, mild to moderate spinal stenosis at L4-5 and possibly with mild mass effect/impingement and transiting left L5 nerve root with subarticular recess -consulted neurosurgery, ordered C-spine MRI which just showed mild degenerative changes, previouslt discussed with Dr. Dennison, no intervention needed -left hip xray showed moderate to severe left hip osteoarthritis with considerable osteophytosis and apparent large inferior joint body, pain control with oral [place], outpatient orthopedic follow-up MRI left hip no osteomyelitis Dermatitis/Rash: Improving -DC'd macrobid -Caladryl lotion -Added Zyrtec hs status post Prednisone 40mg daily x3days. -Benadryl changed to hydroxyzine as needed for itching. Increase hydroxyzine -Nystatin cream right antecubital area and Bactroban ointment left lower anterior leg pustules Resolved cellulitis of left hip: S/p Empiric Treatment with Keflex and Bactrim. LLE Edema: patient with chronic b/l lower extremity nonpitting edema however L worse than the R -b/l doppler U/S negative for DVT -MADIE gilbert Dispo: awaiting placement- awaiting Medicaid. Problem Qualifiers (1) Sacral pressure ulcer: Qualified Code: L89.151 - Decubitus ulcer of sacral region, stage 1 Paola Carballo MD Jul 21, 2016 09:28
[2016-07-21] MEDS: CETIRIZINE HCL 10 MG TAB PO SCH (21:19)
[2016-07-21] MEDS: SERTRALINE HCL 100 MG TAB PO SCH (21:19)
[2016-07-21] MEDS: ONDANSETRON HCL 4 MG/2 ML VIAL IV PUSH PRN (21:19)
[2016-07-22 00:26] VITALS: BP 104/55; PULSE 82; RESP 16; TEMP 97; O2SAT 94
[2016-07-22] MEDS: hydrOXYzine HCL 25 MG TAB PO PRN ×4 (01:36→21:05)
[2016-07-22] MEDS: ACETAMINOPHEN/HYDROcodone 325 MG/7.5 MG TAB PO PRN ×5 (01:37→21:06)
[2016-07-22] MEDS: NYSTATIN 100,000 UNIT/GM CREAM 15 GM TOPICAL SCH ×5 (05:28→23:17)
[2016-07-22 06:09] VITALS: BP 126/63; PULSE 73; RESP 16; TEMP 96.4; O2SAT 95
[2016-07-22 07:50] VITALS: BP 116/58; PULSE 72; RESP 20; TEMP 97.1; O2SAT 92
[2016-07-22] MEDS: FUROSEMIDE 20 MG TAB PO SCH (09:20)
[2016-07-22] MEDS: ENOXAPARIN SODIUM 40 MG/0.4 ML SYRINGE SQ SCH (09:20)
[2016-07-22] MEDS: LACTOBACILLUS ACIDOPHILUS TAB PO SCH ×2 (09:21→21:06)
[2016-07-22] MEDS: FAMOTIDINE 20 MG TAB PO SCH ×2 (09:21→21:07)
[2016-07-22] MEDS: ASPIRIN EC 81 MG TABEC PO SCH (09:21)
[2016-07-22] MEDS: LISINOPRIL 20 MG TAB PO SCH (09:21)
[2016-07-22] MEDS: MUPIROCIN 2% CREAM 15 GM TOPICAL SCH ×2 (09:25→21:09)
[2016-07-22] MEDS: NYSTATIN SUSP 500,000 U/5 ML CUP SWISH-SWAL SCH ×4 (09:25→21:09)
[2016-07-22] MEDS: SODIUM CHLORIDE 0.9% FLUSH 5 ML FLUSH FLUSH SCH ×2 (09:25→21:12)
[2016-07-22] MEDS: CALAMINE/PRAMOXINE LOTION 180 ML BTL TOPICAL SCH ×2 (09:26→21:09)
--- NOTE | 2016-07-22 09:48 | HHI.PR ---
Subjective Remarks patient has no issues. She denied any SOB, CP, or palpation. She stated she did not get any PT yesterday. Objective Vitals Vital Signs Date Time Temp Pulse Resp B/P Pulse Ox O2 Delivery O2 Flow Rate FiO2 07/22/16 06:09 96.4 73 16 126/63 95 07/22/16 00:26 97.0 82 16 104/55 94 07/21/16 21:11 105/63 07/21/16 20:00 97.5 65 16 88/56 98 07/21/16 16:00 97.2 79 18 113/68 94 07/21/16 12:00 97.5 63 18 148/61 95 I/O 07/21/16 07/21/16 07/21/16 07/22/16 07/22/16 07/22/16 07:00 15:00 23:00 07:00 15:00 23:00 Intake Total 240 ml 840 ml 400 ml 240 ml Balance 240 ml 840 ml 400 ml 240 ml Intake Oral 240 ml 840 ml 400 ml 240 ml # Voids 1 1 1 1 # Bowel Movements 0 0 Objective Remarks Gen morbidly obese CV RRR. no r/m/g Ext 5/5 LE strength Procedures none Medications and IVs Current Medications IV Flush 2 ml 2 ml UNSCH PRN IVF FLUSH AFTER USING IV ACCESS; Start 06/23/16 at 14:15; Stop 06/23/16 at 20:00; Status DC Sodium Chloride 1,000 ml @ 1,000 mls/hr Q1H ONCE IV Last administered on 15:37; Start 06/23/16 at 14:02; Stop 06/23/16 at 15:01; Status DC Ceftriaxone Sodium/Sodium Chloride (Rocephin Inj/NS Inj) 100 ml @ 200 mls/hr ONCE ONCE IV Last administered on 06/23/16 18:25; Start 06/23/16 at 18:00; Stop 06/23/16 at 18:29; Status DC IV Flush (NS Flush) 2 ml UNSCH PRN FLUSH FLUSH AFTER USING IV ACCESS Last administered on 07/18/16 17:10; Start 06/23/16 at 20:00 IV Flush (NS Flush) 2 ml BID FLUSH Last administered on 07/22/16 09:25; Start 06/23/16 at 21:00 Enoxaparin Sodium (Lovenox Inj) 40 mg Q24H SQ Last administered on 07/22/16 09: 20; Start 06/24/16 at 09:00 Naloxone HCl 0.4 mg 0.4 mg UNSCH PRN IV SEE LABEL COMMENTS; Start 06/23/16 at 20:00 Levofloxacin/ Dextrose (Levaquin 750 Mg Premix Inj) 150 ml @ 100 mls/hr Q24H IV Last administered on 06/23/16 22:06; Start 06/23/16 at 21:00; Stop 06/24/16 at 09:56; Status DC Acetaminophen/ Hydrocodone Bitart ([place] 5-325 Mg) 1 tab Q6H PRN PO pain >5 Last administered on 06/23/16 22:31; Start 06/23/16 at 22:30; Stop 06/24/16 at 09:59; Status DC Nitrofurantoin Macrocrystals (Macrobid) 100 mg BIDPC PO Last administered on 10:28; Start 06/24/16 at 18:00; Stop 06/25/16 at 13:15; Status DC Amlodipine Besylate (Norvasc) 10 mg DAILY PO Last administered on 07/22/16 09: 21; Start 06/24/16 at 10:00 Aspirin (Ecotrin Ec) 81 mg DAILY PO Last administered on 07/22/16 09:21; Start 06/25/16 at 09:00 Famotidine (Pepcid) 20 mg BID PO Last administered on 07/09/16 09:23; Start at 21:00; Stop 07/09/16 at 15:35; Status DC Furosemide (Lasix) 20 mg DAILY PO Last administered on 07/22/16 09:20; Start at 09:00 Lisinopril (Prinivil) 20 mg DAILY PO Last administered on 07/22/16 09:21; Start 06/24/16 at 10:00 Meloxicam (Mobic) 7.5 mg BID PO Last administered on 07/08/16 10:10; Start 06/24/16 at 21:00; Stop 07/08/16 at 17:43; Status DC Potassium Chloride (KCl) 10 meq DAILY PO Last administered on 07/09/16 09:23; Start 06/25/16 at 09:00; Stop 07/09/16 at 14:35; Status DC Sertraline HCl (Zoloft) 200 mg HS PO Last administered on 07/21/16 21:19; Start 06/24/16 at 21:00 Diphenhydramine HCl (Benadryl) 25 mg Q6H PRN PO itching Last administered on 11:45; Start 06/25/16 at 18:00; Stop 06/30/16 at 14:15; Status DC Acetaminophen (Tylenol) 650 mg Q6H PRN PO PAIN SCALE 1 TO 2; Start 06/26/16 at 16:15 Acetaminophen/ Hydrocodone Bitart ([place] 5-325 Mg) 1 tab Q4H PRN PO PAIN SCALE 3 TO 5 Last administered on 07/19/16 20:35; Start 06/26/16 at 16:15 Acetaminophen/ Hydrocodone Bitart ([place] 7.5-325 Mg) 1 tab Q4H PRN PO PAIN SCALE 6 TO 10 Last administered on 07/22/16 09:22; Start 06/26/16 at 16:15 Calamine/Pramoxine (Caladryl Lotion) 1 applic Q12HR TOPICAL Last administered on 07/17/16 21:00; Start 06/27/16 at 09:00 Trimethoprim/ Sulfamethoxazole (Bactrim 400-80 Mg) 1 tab Q12HR PO Last administered on 07/08/16 10:12; Start 06/28/16 at 12:00; Stop 07/08/16 at 11:59 ; Status DC Cephalexin Monohydrate (Keflex) 250 mg Q8HR PO Last administered on 07/08/16 05:31; Start 06/28/16 at 14:00; Stop 07/08/16 at 13:59; Status DC Cetirizine HCl (ZyrTEC) 10 mg HS PO Last administered on 07/21/16 21:19; Start 06/29/16 at 21:00 Prednisone (Deltasone) 40 mg DAILY PO Last administered on 07/02/16 10:56; Start 06/29/16 at 10:00; Stop 07/02/16 at 09:59; Status DC Hydroxyzine HCl (Atarax) 10 mg Q6H PRN PO itching/anxiety Last administered on 07/02/16 11:03; Start 06/30/16 at 14:15; Stop 07/02/16 at 12:08; Status DC Hydroxyzine HCl (Atarax) 25 mg Q6H PRN PO ITCHING/ANXIETY Last administered on 07/08/16 17:16; Start 07/02/16 at 12:15; Stop 07/08/16 at 17:43; Status DC Metronidazole (Flagyl) 500 mg Q8HR PO Last administered on 07/17/16 21:05; Start 07/04/16 at 02:58; Stop 07/18/16 at 02:57; Status DC Lactobacillus Acidophilus (Lactinex) 1 tab Q12HR PO Last administered on 09:21; Start 07/04/16 at 21:00 Naloxone HCl (Narcan Inj) 0.4 mg UNSCH X1 PRN IV PUSH RESP DEPRESSION OR HYPOTENSION; Start 07/07/16 at 08:00; Stop 07/09/16 at 07:59; Status DC Ondansetron HCl (Zofran Inj) 4 mg Q6H PRN IV PUSH nausea Last administered on 21:19; Start 07/07/16 at 13:45 Nystatin (Mycostatin Cream) 1 applic Q12HR TOPICAL Last administered on 10:54; Start 07/07/16 at 15:00; Stop 07/13/16 at 13:48; Status DC Hydroxyzine HCl (Atarax) 50 mg Q6H PRN PO ITCHING/ANXIETY Last administered on 07/22/16 09:21; Start 07/08/16 at 18:15 Famotidine (Pepcid) 10 mg BID PO Last administered on 07/22/16 09:21; Start at 21:00 Miscellaneous (Pill Splitter) 1 ea UNSCH PRN OTHER SEE LABEL COMMENTS Last administered on 07/11/16 08:23; Start 07/09/16 at 15:45 Potassium Chloride (KCl) 10 meq ONCE ONCE PO Last administered on 07/10/16 17 :52; Start 07/10/16 at 17:30; Stop 07/10/16 at 17:31; Status DC Potassium Chloride (KCl) 10 meq ONCE ONCE PO Last administered on 07/11/16 11 :38; Start 07/11/16 at 11:30; Stop 07/11/16 at 11:31; Status DC Potassium Chloride (KCl) 20 meq ONCE ONCE PO Last administered on 07/13/16 11 :46; Start 07/13/16 at 12:00; Stop 07/13/16 at 12:01; Status DC Nystatin (Mycostatin Cream) 1 applic Q6HR TOPICAL Last administered on 05:28; Start 07/13/16 at 13:30 Mupirocin (Bactroban 2% Cream) 1 applic Q12HR TOPICAL Last administered on 09:25; Start 07/13/16 at 13:30 Nystatin (Mycostatin Liq) 5 ml QID SWISH-SWAL Last administered on 07/21/16 09:22; Start 07/14/16 at 18:00; Stop 07/28/16 at 17:59 Date of Insertion: Jun 23, 2016 A/P Problem List: (1) Total self-care deficit ICD Code: R41.89 Status: Acute (2) Sacral pressure ulcer ICD Code: L89.159 Status: Acute (3) Loose stools ICD Code: R19.5 Status: Acute (4) Elevated TSH ICD Code: R94.6 Status: Acute (5) Arthritis ICD Code: M19.90 Status: Chronic Assessment and Plan Total self care deficit -Case management consult for SNF placement. Insurance won't pay for SNF. 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 treated with Flagyl. Oral thrush Nystatin swish and swallow for 14 days till July 28 Chronic kidney disease stage III. Monitor for dehydration and avoid nephrotoxins discontinue meloxicam. Improving. Subclinical hypothyroidism: TSH mildly elevated at 6.72. T3 and T4 within normal limits. -Repeat thyroid function test in 46 weeks as outpatient. Arthritis, chronic -Stable on Lortab counseled regarding narcotics Left Hip Pain with Left Lumbar Radiculopathy: with numbness to left anterior thigh -T-L Spine MRI showed mild spinal stenosis at L3-4, mild to moderate spinal stenosis at L4-5 and possibly with mild mass effect/impingement and transiting left L5 nerve root with subarticular recess -consulted neurosurgery, ordered C-spine MRI which just showed mild degenerative changes, previouslt discussed with Dr. Dennison, no intervention needed -left hip xray showed moderate to severe left hip osteoarthritis with considerable osteophytosis and apparent large inferior joint body, pain control with oral [place], outpatient orthopedic follow-up MRI left hip no osteomyelitis Dermatitis/Rash: Improving -DC'd macrobid -Caladryl lotion -Added Zyrtec hs status post Prednisone 40mg daily x3days. -Benadryl changed to hydroxyzine as needed for itching. Increase hydroxyzine -Nystatin cream right antecubital area and Bactroban ointment left lower anterior leg pustules Resolved cellulitis of left hip: S/p Empiric Treatment with Keflex and Bactrim. LLE Edema: patient with chronic b/l lower extremity nonpitting edema however L worse than the R -b/l doppler U/S negative for DVT -MADIE hose Dispo: awaiting placement- awaiting Medicaid. Problem Qualifiers (1) Sacral pressure ulcer: Qualified Code: L89.151 - Decubitus ulcer of sacral region, stage 1 Paola Carballo MD Jul 22, 2016 09:48
[2016-07-22 11:50] VITALS: BP 130/60; PULSE 72; RESP 20; TEMP 97.8; O2SAT 92
[2016-07-22 15:50] VITALS: BP 123/58; PULSE 76; RESP 20; TEMP 98; O2SAT 92
[2016-07-22 21:00] VITALS: BP 108/61; PULSE 79; RESP 18; TEMP 97.3; O2SAT 96
[2016-07-22] MEDS: CETIRIZINE HCL 10 MG TAB PO SCH (21:06)
[2016-07-22] MEDS: SERTRALINE HCL 100 MG TAB PO SCH (21:07)
[2016-07-23 01:00] VITALS: BP 116/69; PULSE 81; RESP 18; TEMP 97.7; O2SAT 95
[2016-07-23] MEDS: ACETAMINOPHEN/HYDROcodone 325 MG/7.5 MG TAB PO PRN ×4 (02:10→18:20)
[2016-07-23 05:00] VITALS: BP 115/68; PULSE 77; RESP 18; TEMP 97.8; O2SAT 95
[2016-07-23] MEDS: hydrOXYzine HCL 25 MG TAB PO PRN ×3 (05:15→18:21)
[2016-07-23] MEDS: ACETAMINOPHEN/HYDROcodone 325 MG/5 MG TAB PO PRN (05:16)
[2016-07-23] MEDS: NYSTATIN 100,000 UNIT/GM CREAM 15 GM TOPICAL SCH ×4 (05:16→22:48)
[2016-07-23 07:50] VITALS: BP 107/58; PULSE 77; RESP 20; TEMP 97.8; O2SAT 92
[2016-07-23] MEDS: LACTOBACILLUS ACIDOPHILUS TAB PO SCH ×2 (08:55→22:44)
[2016-07-23] MEDS: ASPIRIN EC 81 MG TABEC PO SCH (08:55)
[2016-07-23] MEDS: SODIUM CHLORIDE 0.9% FLUSH 5 ML FLUSH FLUSH SCH ×2 (08:56→22:45)
[2016-07-23] MEDS: FUROSEMIDE 20 MG TAB PO SCH (08:56)
[2016-07-23] MEDS: FAMOTIDINE 20 MG TAB PO SCH (08:56)
[2016-07-23] MEDS: ENOXAPARIN SODIUM 40 MG/0.4 ML SYRINGE SQ SCH (08:58)
[2016-07-23] MEDS: MUPIROCIN 2% CREAM 15 GM TOPICAL SCH ×2 (08:59→22:48)
[2016-07-23] MEDS: LISINOPRIL 20 MG TAB PO SCH (09:00)
[2016-07-23] MEDS: CALAMINE/PRAMOXINE LOTION 180 ML BTL TOPICAL SCH ×2 (09:00→22:45)
[2016-07-23] MEDS: NYSTATIN SUSP 500,000 U/5 ML CUP SWISH-SWAL SCH ×4 (09:05→22:44)
--- NOTE | 2016-07-23 10:29 | HHI.PR ---
Subjective Remarks No major overnight events Vital signs stable afebrile Denies chest pain or shortness of breath Denies further diarrhea since yesterday - however there is diarrhea reported in chart. Objective Vitals Vital Signs Date Time Temp Pulse Resp B/P Pulse Ox O2 Delivery O2 Flow Rate FiO2 07/23/16 07:50 97.8 77 20 107/58 92 07/23/16 06:16 17 07/23/16 05:00 97.8 77 18 115/68 95 07/23/16 03:10 16 07/23/16 01:00 97.7 81 18 116/69 95 07/22/16 21:00 97.3 79 18 108/61 96 07/22/16 15:50 98.0 76 20 123/58 92 07/22/16 11:50 97.8 72 20 130/60 92 I/O 07/22/16 07/22/16 07/22/16 07/23/16 07/23/16 07/23/16 07:00 15:00 23:00 07:00 15:00 23:00 Intake Total 240 ml 120 ml 480 ml Balance 240 ml 120 ml 480 ml Intake Oral 240 ml 120 ml 480 ml IV Total 0 ml # Voids 1 1 5 # Bowel Movements 0 0 Imaging Last Impressions Hip MRI 07/05/16 0000 Signed Impressions: Service Date/Time: Tuesday, July 05, 2016 10:51 - CONCLUSION: 1. There is osteopenia primary degenerative changes at both hips, left greater than right. 2. Prominent osteophyte along the inferior articulating surface of the proximal left femur. 3. Nonspecific edema in the gluteus and hamstring muscles. 4. No acute bony fracture. Javier Fishman MD Lower Extremity Ultrasound 06/29/16 0000 Signed Impressions: Service Date/Time: Wednesday, June 29, 2016 10:07 - CONCLUSION: Negative for deep venous thrombosis. Alfredo Sanders MD FACR Cervical Spine MRI 06/27/16 0000 Signed Impressions: Service Date/Time: Monday, June 27, 2016 11:09 - CONCLUSION: Mild degenerative changes otherwise unremarkable cervical spine. Anselmo Leavitt MD Thoracic Spine MRI 06/25/16 0000 Signed Impressions: Service Date/Time: June 19:36 - CONCLUSION: 1. No fracture or subluxation of the thoracic spine. 2. Mild and fairly diffuse degenerative changes as above. 3. Mild left foraminal encroachment at T8/T9 and T9/T10. 4. No significant spinal stenosis at any level. 5. Incidentally seen tiny right and small left pleural effusions, nonspecific. Jeevan Arreola MD Lumbar Spine MRI 06/25/16 0000 Signed Impressions: Service Date/Time: June 19:36 - CONCLUSION: 1. Multilevel lumbar degenerative changes as detailed above. 2. Mild spinal stenosis at L3/L4 without evidence of transiting nerve root impingement. 3. Mild to moderate spinal stenosis at L4/L5 and possibly with mild mass effect/impingement on the transiting left L5 nerve root within the subarticular recess. 4. Mild bilateral foraminal encroachment L3/L4 and L4/L5. Mild to moderate bilateral foraminal encroachment at L5/S1. 5. No fracture or subluxation of the lumbar spine. Jeevan Arreola MD Hip and Pelvis X-Ray 06/25/16 0000 Signed Impressions: Service Date/Time: June 20:27 - CONCLUSION: Moderate to severe left hip' right is with considerable osteophytosis and an apparent large inferior joint body. No fracture or subluxation. Jeevan Arreola MD Chest X-Ray 06/23/16 1402 Signed Impressions: Service Date/Time: Thursday, June 23, 2016 14:13 - CONCLUSION: Normal examination. Elías Moreno MD Objective Remarks GENERAL: Well-developed well-nourished. Morbidly obese. In no acute distress. Signs of dehydration SKIN: Warm and dry. Improving erythema back areas. New maculopapular rash right antecubital area consistent with tinea. Also has pustules left lower anterior leg HEENT: Normocephalic. Pupils equal and round. Mucous membranes pink and moist. Oral thrush noted CARDIOVASCULAR: Regular rate and rhythm. No murmur appreciated. RESPIRATORY: No accessory muscle use. Clear to auscultation. Breath sounds equal bilaterally. GASTROINTESTINAL: Abdomen soft, non-tender, nondistended. Bowel sounds x4. MUSCULOSKELETAL: Left lateral hip with area of improving induration and warmth, no erythema or TTP. No clubbing or cyanosis. Mild to moderate nonpitting edema bilaterally, left worse than right. NEUROLOGICAL: Awake and alert. No focal neurological deficits. Moves upper and lower extremities spontaneously. Normal speech. PSYCHIATRIC: Appropriate mood and affect; insight and judgment normal. Procedures none Medications and IVs Current Medications Medications (Trade) Dose Ordered Sig/Alhaji Route Start Time Stop Time Status Last Admin (NS Flush) 2 ml UNSCH PRN FLUSH 06/23/16 20:00 07/18/16 17:10 (NS Flush) 2 ml BID FLUSH 06/23/16 21:00 07/23/16 08:56 (Lovenox Inj) 40 mg Q24H SQ 06/24/16 09:00 07/23/16 08:58 (Narcan Inj) 0.4 mg UNSCH PRN IV 06/23/16 20:00 (Norvasc) 10 mg DAILY PO 06/24/16 10:00 07/22/16 09:21 (Ecotrin Ec) 81 mg DAILY PO 06/25/16 09:00 07/23/16 08:55 (Lasix) 20 mg DAILY PO 06/25/16 09:00 07/23/16 08:56 (Prinivil) 20 mg DAILY PO 06/24/16 10:00 07/22/16 09:21 (Zoloft) 200 mg HS PO 06/24/16 21:00 07/22/16 21:07 (Tylenol) 650 mg Q6H PRN PO 06/26/16 16:15 ([place] 5-325 Mg) 1 tab Q4H PRN PO 06/26/16 16:15 07/23/16 05:16 ([place] 7.5-325 Mg) 1 tab Q4H PRN PO 06/26/16 16:15 07/23/16 09:06 (Caladryl Lotion) 1 applic Q12HR TOPICAL 06/27/16 09:00 07/17/16 21:00 (ZyrTEC) 10 mg HS PO 06/29/16 21:00 07/22/16 21:06 (Lactinex) 1 tab Q12HR PO 07/04/16 21:00 07/23/16 08:55 (Zofran Inj) 4 mg Q6H PRN IV PUSH 07/07/16 13:45 07/21/16 21:19 (Atarax) 50 mg Q6H PRN PO 07/08/16 18:15 07/23/16 05:15 (Pepcid) 10 mg BID PO 07/09/16 21:00 07/23/16 08:56 (Pill Splitter) 1 ea UNSCH PRN OTHER 07/09/16 15:45 07/11/16 08:23 (Mycostatin Cream) 1 applic Q6HR TOPICAL 07/13/16 13:30 07/23/16 05:16 (Bactroban 2% Cream) 1 applic Q12HR TOPICAL 07/13/16 13:30 07/23/16 08:59 (Mycostatin Liq) 5 ml QID SWISH-SWAL 07/14/16 18:00 07/28/16 17:59 07/23/16 09:05 Urinary Catheter: No Date of Insertion: Jun 23, 2016 Vascular Central Line Catheter: No A/P Problem List: (1) C. difficile diarrhea ICD Code: A04.7 Status: Acute Plan: Patient still with diarrhea however seems to be improving. Continue treatment with Flagyl 14 days. (2) Total self-care deficit ICD Code: R41.89 Status: Acute Plan: Case management following the patient for SNF placement. Insurance will pay for SNF. 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 (3) UTI (urinary tract infection) ICD Code: N39.0 Status: Resolved Plan: Urinalysis showed evidence of continued infection. Patient status post treatment with IV levofloxacin and IV Rocephin, switched to oral Macrobid however patient developed rash and antibiotic was discontinued. UTI resolved. (4) Sacral pressure ulcer ICD Code: L89.159 Status: Chronic Plan: Wound care consulted. Barrier cream recommended. Turn every 2 hours. (5) Arthritis ICD Code: M19.90 Status: Chronic Plan: Stable Lortab, consult regarding narcotic use by Dr. Carballo. (6) Oral thrush ICD Code: B37.0 Status: Acute Plan: Continue treatment with nystatin swish and swallow for 14 days. Stop date July 28. (7) Subclinical hypothyroidism ICD Code: E03.9 Status: Acute Plan: TSH elevated at 6.72. T3 and T4 within normal limits. Repeat thyroid function test in 4-6 weeks as outpatient. (8) Radiculopathy of lumbar region ICD Code: M54.16 Status: Acute Plan: Patient with numbness of the left anterior thigh. TL spine MRI showed mild spinal stenosis at L3-4, moderate to moderate spinal stenosis at L4-5 and possibly with mild mass effect/impingement transiting left L5 nerve root with subarticular recess. Neurosurgery was consulted, ordered C-spine MRI which showed mild degenerative changes. Dr. Carballo discussed the case with Dr. Dennison, no intervention needed Left hip x-ray showed moderate to severe left hip osteoarthritis with considerable osteophytosis and apparent large inferior joint body. Continue pain control with oral [place], outpatient orthopedic follow-up is recommended. MRI of the left hip ruled out osteomyelitis. (9) Antibiotic-induced allergic rash ICD Code: T36.91XA Status: Resolved Plan: Patient with suspected allergic reaction to Macrobid. Being treated with Caladryl lotion, Zyrtec and status post treatment with oral steroids. Benadryl was changed to hydroxyzine as needed for itching. Also nystatin cream to the right antecubital area and Bactroban ointment to the left lower anterior leg pustules (10) Cellulitis ICD Code: L03.90 Status: Resolved Plan: Status post empiric treatment with Keflex and Bactrim. (11) Bilateral lower extremity edema ICD Code: R60.0 Status: Chronic Plan: Chronic bilateral lower extremity edema, which is nonpitting, left worse than right. Bilateral Doppler ultrasound negative for DVT. Continue MADIE gilbert (12) CKD (chronic kidney disease), stage III ICD Code: N18.3 Status: Acute Plan: With baseline creatinine around 0.7-0.9. GFR around 80. Last creatinine obtained on 08/10/16 1.04. Likely close to baseline. Patient with good urine output. Continue to monitor BUN and creatinine periodically, strict I's and O's Assessment and Plan GI prophylaxis: We'll hold PPI until C. difficile is clear. DVT prophylaxis : Lovenox subcutaneously Discharge Planning Pending resolution of C. difficile. Continue to monitor the medical floor. Problem Qualifiers (1) Sacral pressure ulcer: Qualified Code: L89.151 - Decubitus ulcer of sacral region, stage 1 (2) Cellulitis: Qualified Code: L03.818 - Cellulitis of other specified site Larry Amato MD Jul 23, 2016 10:29
[2016-07-23 11:50] VITALS: BP 130/60; PULSE 78; RESP 20; TEMP 97.7; O2SAT 93
--- NOTE | 2016-07-23 14:16 | HHI.NSPN ---
History Chief Complaint: left hip pain Interval History 70-year-old female complains of 2-3 weeks lower extremity weakness with intermittent numbness. Several weeks of left hip pain. Denies fevers or chills. 07/23/16: Patient with persistent left hip pain although improved from 1-2 weeks ago. Exam Results Vital Signs Date Time Temp Pulse Resp B/P Pulse Ox O2 Delivery O2 Flow Rate FiO2 07/23/16 11:50 97.7 78 20 130/60 93 Automatic Cuff Intake and Output 07/22/16 07/22/16 07/23/16 08:00 16:00 00:00 Intake Total 240 ml 120 ml Balance 240 ml 120 ml Physical Examination Awake and alert Conversant and appropriate Speech is clear Recent and remote memory intact Follows commands well Sensation intact light touch upper extremities. Complains of somewhat diffuse decreased sensation to light touch left proximal lower extremity, nondermatomal distribution. Strength within normal limits upper extremities Motor testing lower extremities reveals 4 right and 2/5 left iliopsoas and quadriceps with complaint of left hip pain with proximal left lower extremity motor testing. 5/5 bilateral tibialis anterior, gastrocsoleus, tibialis posterior,. Church's response absent bilateral No ankle clonus Right thigh and lateral hip region soft tissues are soft, nontender. Left lateral hip and thigh now without significant edema or erythema. Mostly moderate persistent deep tenderness over the left lateral hip and proximal lateral thigh. Moderate left hip and thigh discomfort with passive range of motion. Medical Decision Making Impression and Plan Impression: 1. Lumbar spondylosis and degenerative disc disease with relatively moderate L4 5 stenosis. 2. Severe progressive left hip pain. Moderately severe left hip osteoarthritis per x-ray results. 3. left thigh/hip cellulitis-improved following empiric antibiotic treatment 4. No definite evidence of cauda equina syndrome or focal lumbar radiculopathy. Proximal left lower extremity motor deficits appears related to pain and guarding with testing Recommendations: Findings discussed with the patient at length again today She is starting to mobilize to a sitting position in therapy. No neurosurgical intervention planned at the present time. She can discharge when otherwise medically stable, with outpatient orthopedic follow-up. Can follow-up with neurosurgery as needed following orthopedic evaluation. Deangelo Dennison MD Jul 23, 2016 14:16
[2016-07-23 15:50] VITALS: BP 138/67; PULSE 79; RESP 20; TEMP 98; O2SAT 93
[2016-07-23 20:00] VITALS: BP 120/75; PULSE 77; RESP 17; TEMP 97.2; O2SAT 96
[2016-07-23] MEDS: SERTRALINE HCL 100 MG TAB PO SCH (22:44)
[2016-07-23] MEDS: CETIRIZINE HCL 10 MG TAB PO SCH (22:45)
[2016-07-24] VITALS: BP 118/69; PULSE 77; RESP 17; TEMP 96.8; O2SAT 93
[2016-07-24 04:00] VITALS: BP 114/68; PULSE 78; RESP 16; TEMP 96.6; O2SAT 94
[2016-07-24] MEDS: NYSTATIN 100,000 UNIT/GM CREAM 15 GM TOPICAL SCH ×4 (06:04→23:23)
[2016-07-24 07:17] LABS: HEMATOCRIT 34.6 % (35.0-46.0); MEAN CELL VOLUME 91.4 FL (80.0-100.0); MEAN CORPUSCULAR HEMOGLOBIN 30.3 PG (27.0-34.0); MEAN CORPUSCULAR HGB CONC 33.1 % (32.0-36.0); PLATELET COUNT 215 TH/MM3 (150-450); RED BLOOD COUNT 3.78 MIL/MM3 (4.00-5.30); RED CELL DISTRIBUTION WIDTH 14.1 % (11.6-17.2); REVIEW FLAG FINAL; WHITE BLOOD COUNT 5.7 TH/MM3 (4.0-11.0)
[2016-07-24 07:31] LABS: BICARBONATE 26.4 MEQ/L (21.0-32.0)
[2016-07-24 07:32] LABS: POTASSIUM 4.1 MEQ/L (3.5-5.1)
[2016-07-24 08:00] VITALS: BP 130/60; PULSE 77; RESP 16; TEMP 97.6; O2SAT 94
[2016-07-24] MEDS: NYSTATIN SUSP 500,000 U/5 ML CUP SWISH-SWAL SCH ×5 (09:00→22:13)
[2016-07-24] MEDS: SODIUM CHLORIDE 0.9% FLUSH 5 ML FLUSH FLUSH SCH ×2 (09:40→22:13)
[2016-07-24] MEDS: ACETAMINOPHEN/HYDROcodone 325 MG/5 MG TAB PO PRN (09:40)
[2016-07-24] MEDS: FUROSEMIDE 20 MG TAB PO SCH (09:41)
[2016-07-24] MEDS: CALAMINE/PRAMOXINE LOTION 180 ML BTL TOPICAL SCH ×2 (09:41→22:13)
[2016-07-24] MEDS: MUPIROCIN 2% CREAM 15 GM TOPICAL SCH ×2 (09:41→22:13)
[2016-07-24] MEDS: ASPIRIN EC 81 MG TABEC PO SCH (09:41)
[2016-07-24] MEDS: LACTOBACILLUS ACIDOPHILUS TAB PO SCH ×2 (09:41→22:12)
[2016-07-24] MEDS: hydrOXYzine HCL 25 MG TAB PO PRN ×3 (09:41→22:12)
[2016-07-24] MEDS: ENOXAPARIN SODIUM 40 MG/0.4 ML SYRINGE SQ SCH (09:41)
[2016-07-24] MEDS: LISINOPRIL 20 MG TAB PO SCH (09:41)
[2016-07-24] MEDS: ONDANSETRON HCL 4 MG/2 ML VIAL IV PUSH PRN ×3 (09:49→22:12)
[2016-07-24 12:00] VITALS: BP 141/62; PULSE 78; RESP 18; TEMP 97.5; O2SAT 92
[2016-07-24] MEDS: ACETAMINOPHEN/HYDROcodone 325 MG/7.5 MG TAB PO PRN ×3 (14:12→22:13)
--- NOTE | 2016-07-24 15:12 | HHI.PR ---
Subjective Remarks This is a pleasant 70 y/o Female with Morbid Obesity, Hypertension, who came on 06/07/16 after fall at home has been in a Wheelchair for the last 6 months, increased weakness, recently discharged home with PT returned to ER on 06/26/16 with persistent diffuse lower extremity weakness, has also OA, Anxiety disorder. Seen in the room in the presence of nurse Miss Martinez continue awaiting for placement, No Nausea, vomit or Diarrhea. Objective Vital Signs Date Time Temp Pulse Resp B/P Pulse Ox O2 Delivery O2 Flow Rate FiO2 07/24/16 12:00 97.5 78 18 141/62 92 07/24/16 08:00 97.6 77 16 130/60 94 07/24/16 04:00 96.6 78 16 114/68 94 07/24/16 00:00 96.8 77 17 118/69 93 07/23/16 20:00 97.2 77 17 120/75 96 07/23/16 15:50 98.0 79 20 138/67 93 I/O 07/23/16 07/23/16 07/23/16 07/24/16 07/24/16 07/24/16 07:00 15:00 23:00 07:00 15:00 23:00 Intake Total 480 ml 480 ml 120 ml 120 ml Balance 480 ml 480 ml 120 ml 120 ml Intake Oral 480 ml 480 ml 120 ml 120 ml # Voids 5 6 1 1 # Bowel Movements 0 1 0 Result Diagram: 07/24/16 0650 07/24/16 0650 Imaging Last Impressions Hip MRI 07/05/16 0000 Signed Impressions: Service Date/Time: Tuesday, July 05, 2016 10:51 - CONCLUSION: 1. There is osteopenia primary degenerative changes at both hips, left greater than right. 2. Prominent osteophyte along the inferior articulating surface of the proximal left femur. 3. Nonspecific edema in the gluteus and hamstring muscles. 4. No acute bony fracture. Javier Fishman MD Lower Extremity Ultrasound 06/29/16 0000 Signed Impressions: Service Date/Time: Wednesday, June 29, 2016 10:07 - CONCLUSION: Negative for deep venous thrombosis. Alfredo Sanders MD FACR Cervical Spine MRI 06/27/16 0000 Signed Impressions: Service Date/Time: Monday, June 27, 2016 11:09 - CONCLUSION: Mild degenerative changes otherwise unremarkable cervical spine. Anselmo Leavitt MD Thoracic Spine MRI 06/25/16 0000 Signed Impressions: Service Date/Time: June 19:36 - CONCLUSION: 1. No fracture or subluxation of the thoracic spine. 2. Mild and fairly diffuse degenerative changes as above. 3. Mild left foraminal encroachment at T8/T9 and T9/T10. 4. No significant spinal stenosis at any level. 5. Incidentally seen tiny right and small left pleural effusions, nonspecific. Jeevan Arreola MD Lumbar Spine MRI 06/25/16 0000 Signed Impressions: Service Date/Time: June 19:36 - CONCLUSION: 1. Multilevel lumbar degenerative changes as detailed above. 2. Mild spinal stenosis at L3/L4 without evidence of transiting nerve root impingement. 3. Mild to moderate spinal stenosis at L4/L5 and possibly with mild mass effect/impingement on the transiting left L5 nerve root within the subarticular recess. 4. Mild bilateral foraminal encroachment L3/L4 and L4/L5. Mild to moderate bilateral foraminal encroachment at L5/S1. 5. No fracture or subluxation of the lumbar spine. Jeevan Arreola MD Hip and Pelvis X-Ray 06/25/16 0000 Signed Impressions: Service Date/Time: June 20:27 - CONCLUSION: Moderate to severe left hip' right is with considerable osteophytosis and an apparent large inferior joint body. No fracture or subluxation. Jeevan Arreola MD Chest X-Ray 06/23/16 1402 Signed Impressions: Service Date/Time: Thursday, June 23, 2016 14:13 - CONCLUSION: Normal examination. Elías Moreno MD Procedures No procedures. Other Results Laboratory Tests Test 07/24/16 06:50 White Blood Count 5.7 TH/MM3 Red Blood Count 3.78 MIL/MM3 Hemoglobin 11.5 GM/DL Hematocrit 34.6 % Mean Corpuscular Volume 91.4 FL Mean Corpuscular Hemoglobin 30.3 PG Mean Corpuscular Hemoglobin 33.1 % Concent Red Cell Distribution Width 14.1 % Platelet Count 215 TH/MM3 Mean Platelet Volume 9.2 FL Sodium Level 142 MEQ/L Potassium Level 4.1 MEQ/L Chloride Level 108 MEQ/L Carbon Dioxide Level 26.4 MEQ/L Anion Gap 8 MEQ/L Blood Urea Nitrogen 18 MG/DL Creatinine 0.80 MG/DL Estimat Glomerular Filtration 71 ML/MIN Rate Random Glucose 74 MG/DL Calcium Level 8.2 MG/DL Objective Remarks GENERAL: Well-developed well-nourished. Morbidly obese. In no acute distress. Signs of dehydration SKIN: Warm and dry. Improving erythema back areas. New maculopapular rash right antecubital area consistent with tinea. Also has pustules left lower anterior leg HEENT: Normocephalic. Pupils equal and round. Mucous membranes pink and moist. Oral thrush noted CARDIOVASCULAR: Regular rate and rhythm. No murmur appreciated. RESPIRATORY: No accessory muscle use. Clear to auscultation. Breath sounds equal bilaterally. GASTROINTESTINAL: Abdomen soft, non-tender, nondistended. Bowel sounds x4. MUSCULOSKELETAL: Left lateral hip with area of improving induration and warmth, no erythema or TTP. No clubbing or cyanosis. Mild to moderate nonpitting edema bilaterally, left worse than right. NEUROLOGICAL: Awake and alert. No focal neurological deficits. Moves upper and lower extremities spontaneously. Normal speech. PSYCHIATRIC: Appropriate mood and affect; insight and judgment normal. Medications and IVs Current Medications Medications (Trade) Dose Ordered Sig/Alhaji Route Start Time Stop Time Status Last Admin (NS Flush) 2 ml UNSCH PRN FLUSH 06/23/16 20:00 07/18/16 17:10 (NS Flush) 2 ml BID FLUSH 06/23/16 21:00 07/24/16 09:40 (Lovenox Inj) 40 mg Q24H SQ 06/24/16 09:00 07/24/16 09:41 (Narcan Inj) 0.4 mg UNSCH PRN IV 06/23/16 20:00 (Norvasc) 10 mg DAILY PO 06/24/16 10:00 07/24/16 09:41 (Ecotrin Ec) 81 mg DAILY PO 06/25/16 09:00 07/24/16 09:41 (Lasix) 20 mg DAILY PO 06/25/16 09:00 07/24/16 09:41 (Prinivil) 20 mg DAILY PO 06/24/16 10:00 07/24/16 09:41 (Zoloft) 200 mg HS PO 06/24/16 21:00 07/23/16 22:44 (Tylenol) 650 mg Q6H PRN PO 06/26/16 16:15 (Caspian 5-325 Mg) 1 tab Q4H PRN PO 06/26/16 16:15 07/24/16 09:40 (Caspian 7.5-325 Mg) 1 tab Q4H PRN PO 06/26/16 16:15 07/24/16 14:12 (Caladryl Lotion) 1 applic Q12HR TOPICAL 06/27/16 09:00 07/24/16 09:41 (ZyrTEC) 10 mg HS PO 06/29/16 21:00 07/23/16 22:45 (Lactinex) 1 tab Q12HR PO 07/04/16 21:00 07/24/16 09:41 (Zofran Inj) 4 mg Q6H PRN IV PUSH 07/07/16 13:45 07/24/16 09:49 (Atarax) 50 mg Q6H PRN PO 07/08/16 18:15 07/24/16 09:41 (Pepcid) 10 mg BID PO 07/09/16 21:00 Hold 07/23/16 08:56 (Pill Splitter) 1 ea UNSCH PRN OTHER 07/09/16 15:45 07/11/16 08:23 (Mycostatin Cream) 1 applic Q6HR TOPICAL 07/13/16 13:30 07/24/16 12:30 (Bactroban 2% Cream) 1 applic Q12HR TOPICAL 07/13/16 13:30 07/24/16 09:41 (Mycostatin Liq) 5 ml QID SWISH-SWAL 07/14/16 18:00 07/28/16 17:59 07/23/16 22:44 A/P Assessment and Plan 1. C Difficile Diarrhea still with Diarrhea improving, continue Flagyl for 14 days 2. Total Self-care deficit will need SNF at discharge 3. UTI IV Levofloxacin and IV Rocephin, switched to Macrobid however patient developed rash and antibiotic was removed. UTI resolved. 4. Sacral Pressure Ulcer, wound care consulted, Barrier cream recommended turn every 2 hours. 5. OA chronic stable continue Lortab 6. Oral Thrush on Nystatin Stop July 28. 7. Subclinical Hypothyroidism repeat function test in 4 to 6 weeks. 8. Radiculopathy of Lumbar region. numbness on the Left anterior area of the thigh. TL spine MRI showed mild spinal stenosis at L3-4, moderate to moderate spinal stenosis at L4-5 and possibly with mild mass effect/impingement transiting left L5 nerve root with subarticular recess. Neurosurgery was consulted, ordered C-spine MRI which showed mild degenerative changes. Dr. Carballo discussed the case with Dr. Dennison, no intervention needed Left hip x-ray showed moderate to severe left hip osteoarthritis with considerable osteophytosis and apparent large inferior joint body. Continue pain control with oral Caspian, outpatient orthopedic follow-up is recommended. MRI of the left hip ruled out osteomyelitis. Mild findings for Myelopathy, 9. Bilateral Lower extremity Edema chronic issues, Left worse than right. Bilatearl Doppler ultrasound negative for DVT. Continue MADIE hose. 10. CKD III Creatinine close to baseline. GI prophylaxis: We'll hold PPI until C. difficile is clear. DVT prophylaxis : Lovenox subcutaneously Discharge Planning Awaiting for placement. Gamalile Cortes MD Jul 24, 2016 15:12
[2016-07-24 16:00] VITALS: BP 138/63; PULSE 76; RESP 18; TEMP 97.5; O2SAT 94
[2016-07-24 20:00] VITALS: BP 167/78; PULSE 79; RESP 18; TEMP 96.9; O2SAT 96
[2016-07-24] MEDS: SERTRALINE HCL 100 MG TAB PO SCH (22:12)
[2016-07-24] MEDS: CETIRIZINE HCL 10 MG TAB PO SCH (22:12)
[2016-07-25] VITALS: BP 136/68; PULSE 77; RESP 17; TEMP 97.5; O2SAT 94
[2016-07-25 04:00] VITALS: BP 136/68; PULSE 77; RESP 17; TEMP 97.5; O2SAT 94
[2016-07-25] MEDS: NYSTATIN 100,000 UNIT/GM CREAM 15 GM TOPICAL SCH ×4 (05:19→20:15)
[2016-07-25] MEDS: ONDANSETRON HCL 4 MG/2 ML VIAL IV PUSH PRN ×3 (05:44→18:43)
[2016-07-25] MEDS: ACETAMINOPHEN/HYDROcodone 325 MG/7.5 MG TAB PO PRN ×2 (05:45→11:57)
[2016-07-25] MEDS: hydrOXYzine HCL 25 MG TAB PO PRN ×3 (05:45→18:44)
[2016-07-25] MEDS: ENOXAPARIN SODIUM 40 MG/0.4 ML SYRINGE SQ SCH (09:00)
[2016-07-25] MEDS: NYSTATIN SUSP 500,000 U/5 ML CUP SWISH-SWAL SCH ×4 (09:00→20:18)
[2016-07-25] MEDS: ASPIRIN EC 81 MG TABEC PO SCH (09:01)
[2016-07-25] MEDS: LACTOBACILLUS ACIDOPHILUS TAB PO SCH ×2 (09:02→20:14)
[2016-07-25] MEDS: FUROSEMIDE 20 MG TAB PO SCH (09:02)
[2016-07-25] MEDS: LISINOPRIL 20 MG TAB PO SCH (09:02)
[2016-07-25] MEDS: SODIUM CHLORIDE 0.9% FLUSH 5 ML FLUSH FLUSH SCH ×2 (09:03→20:13)
[2016-07-25] MEDS: CALAMINE/PRAMOXINE LOTION 180 ML BTL TOPICAL SCH ×2 (09:04→20:15)
[2016-07-25] MEDS: MUPIROCIN 2% CREAM 15 GM TOPICAL SCH ×2 (09:04→20:15)
[2016-07-25 09:30] VITALS: BP 121/60; PULSE 97; RESP 18; TEMP 97.6; O2SAT 94
[2016-07-25] MEDS: SODIUM CHLORIDE 0.9% FLUSH 5 ML FLUSH FLUSH PRN ×2 (11:59→18:44)
[2016-07-25 13:00] VITALS: BP 115/58; PULSE 73; RESP 16; TEMP 96.9; O2SAT 95
[2016-07-25 16:00] VITALS: BP 122/64; PULSE 89; RESP 18; TEMP 96.1; O2SAT 95
--- NOTE | 2016-07-25 18:36 | HHI.PR ---
Subjective Remarks This is a pleasant 70 y/o Female with Morbid Obesity, Hypertension, who came on 06/07/16 after fall at home has been in a Wheelchair for the last 6 months, increased weakness, recently discharged home with PT returned to ER on 06/26/16 with persistent diffuse lower extremity weakness, has also OA, Anxiety disorder. Stable in her bedroom no changes to anterior assessment, seen with nurse Miss Hendrix, No nausea, vomit or diarrhea. Objective Vital Signs Date Time Temp Pulse Resp B/P Pulse Ox O2 Delivery O2 Flow Rate FiO2 07/25/16 13:00 96.9 73 16 115/58 95 07/25/16 09:30 97.6 97 18 121/60 94 07/25/16 04:00 97.5 77 17 136/68 94 07/25/16 00:00 97.5 77 17 136/68 94 07/24/16 20:00 96.9 79 18 167/78 96 I/O 07/24/16 07/24/16 07/24/16 07/25/16 07/25/16 07/25/16 07:00 15:00 23:00 07:00 15:00 23:00 Intake Total 120 ml 600 ml 240 ml 240 ml 480 ml Balance 120 ml 600 ml 240 ml 240 ml 480 ml Intake Oral 120 ml 600 ml 240 ml 240 ml 480 ml # Voids 1 3 2 2 # Bowel Movements 0 1 1 Result Diagram: 07/24/16 0650 07/24/16 0650 Imaging Last Impressions Hip MRI 07/05/16 0000 Signed Impressions: Service Date/Time: Tuesday, July 05, 2016 10:51 - CONCLUSION: 1. There is osteopenia primary degenerative changes at both hips, left greater than right. 2. Prominent osteophyte along the inferior articulating surface of the proximal left femur. 3. Nonspecific edema in the gluteus and hamstring muscles. 4. No acute bony fracture. Javier Fishman MD Lower Extremity Ultrasound 06/29/16 0000 Signed Impressions: Service Date/Time: Wednesday, June 29, 2016 10:07 - CONCLUSION: Negative for deep venous thrombosis. Alfredo Sanders MD FACR Cervical Spine MRI 06/27/16 0000 Signed Impressions: Service Date/Time: Monday, June 27, 2016 11:09 - CONCLUSION: Mild degenerative changes otherwise unremarkable cervical spine. Anselmo Leavitt MD Thoracic Spine MRI 06/25/16 0000 Signed Impressions: Service Date/Time: June 19:36 - CONCLUSION: 1. No fracture or subluxation of the thoracic spine. 2. Mild and fairly diffuse degenerative changes as above. 3. Mild left foraminal encroachment at T8/T9 and T9/T10. 4. No significant spinal stenosis at any level. 5. Incidentally seen tiny right and small left pleural effusions, nonspecific. Jeevan Arreola MD Lumbar Spine MRI 06/25/16 0000 Signed Impressions: Service Date/Time: June 19:36 - CONCLUSION: 1. Multilevel lumbar degenerative changes as detailed above. 2. Mild spinal stenosis at L3/L4 without evidence of transiting nerve root impingement. 3. Mild to moderate spinal stenosis at L4/L5 and possibly with mild mass effect/impingement on the transiting left L5 nerve root within the subarticular recess. 4. Mild bilateral foraminal encroachment L3/L4 and L4/L5. Mild to moderate bilateral foraminal encroachment at L5/S1. 5. No fracture or subluxation of the lumbar spine. Jeevan Arreola MD Hip and Pelvis X-Ray 06/25/16 0000 Signed Impressions: Service Date/Time: June 20:27 - CONCLUSION: Moderate to severe left hip' right is with considerable osteophytosis and an apparent large inferior joint body. No fracture or subluxation. Jeevan Arreola MD Chest X-Ray 06/23/16 1402 Signed Impressions: Service Date/Time: Thursday, June 23, 2016 14:13 - CONCLUSION: Normal examination. Elías Moreno MD Procedures No procedures. Other Results Laboratory Tests Test 07/24/16 06:50 White Blood Count 5.7 TH/MM3 Red Blood Count 3.78 MIL/MM3 Hemoglobin 11.5 GM/DL Hematocrit 34.6 % Mean Corpuscular Volume 91.4 FL Mean Corpuscular Hemoglobin 30.3 PG Mean Corpuscular Hemoglobin 33.1 % Concent Red Cell Distribution Width 14.1 % Platelet Count 215 TH/MM3 Mean Platelet Volume 9.2 FL Sodium Level 142 MEQ/L Potassium Level 4.1 MEQ/L Chloride Level 108 MEQ/L Carbon Dioxide Level 26.4 MEQ/L Anion Gap 8 MEQ/L Blood Urea Nitrogen 18 MG/DL Creatinine 0.80 MG/DL Estimat Glomerular Filtration 71 ML/MIN Rate Random Glucose 74 MG/DL Calcium Level 8.2 MG/DL Objective Remarks GENERAL: Well-developed well-nourished. Morbidly obese. In no acute distress. SKIN: Warm and dry. Improving erythema back areas. Erythema on sacral area but no ulcer. HEENT: Normocephalic. Pupils equal and round. Mucous membranes pink and moist. CARDIOVASCULAR: Regular rate and rhythm. No murmur RESPIRATORY: clear to auscultation, no wheezing or crackles. GASTROINTESTINAL: Abdomen soft, non-tender, nondistended. Bowel sounds x4. MUSCULOSKELETAL:No clubbing cyanosis or edema. NEUROLOGICAL: Awake and alert. No focal neurological deficits. PSYCHIATRIC: Appropriate mood and affect; insight and judgment normal. Medications and IVs Current Medications Medications (Trade) Dose Ordered Sig/Alhaji Route Start Time Stop Time Status Last Admin (NS Flush) 2 ml UNSCH PRN FLUSH 06/23/16 20:00 07/25/16 11:59 (NS Flush) 2 ml BID FLUSH 06/23/16 21:00 07/25/16 09:03 (Lovenox Inj) 40 mg Q24H SQ 06/24/16 09:00 07/25/16 09:00 (Narcan Inj) 0.4 mg UNSCH PRN IV 06/23/16 20:00 (Norvasc) 10 mg DAILY PO 06/24/16 10:00 07/25/16 09:02 (Ecotrin Ec) 81 mg DAILY PO 06/25/16 09:00 07/25/16 09:01 (Lasix) 20 mg DAILY PO 06/25/16 09:00 07/25/16 09:02 (Prinivil) 20 mg DAILY PO 06/24/16 10:00 07/25/16 09:02 (Zoloft) 200 mg HS PO 06/24/16 21:00 07/24/16 22:12 (Tylenol) 650 mg Q6H PRN PO 06/26/16 16:15 (Hanson 5-325 Mg) 1 tab Q4H PRN PO 06/26/16 16:15 07/24/16 09:40 (Hanson 7.5-325 Mg) 1 tab Q4H PRN PO 06/26/16 16:15 07/25/16 11:57 (Caladryl Lotion) 1 applic Q12HR TOPICAL 06/27/16 09:00 07/25/16 09:04 (ZyrTEC) 10 mg HS PO 06/29/16 21:00 07/24/16 22:12 (Lactinex) 1 tab Q12HR PO 07/04/16 21:00 07/25/16 09:02 (Zofran Inj) 4 mg Q6H PRN IV PUSH 07/07/16 13:45 07/25/16 11:57 (Atarax) 50 mg Q6H PRN PO 07/08/16 18:15 07/25/16 11:57 (Pepcid) 10 mg BID PO 07/09/16 21:00 Hold 07/23/16 08:56 (Pill Splitter) 1 ea UNSCH PRN OTHER 07/09/16 15:45 07/11/16 08:23 (Mycostatin Cream) 1 applic Q6HR TOPICAL 07/13/16 13:30 07/25/16 18:00 (Bactroban 2% Cream) 1 applic Q12HR TOPICAL 07/13/16 13:30 07/25/16 09:04 (Mycostatin Liq) 5 ml QID SWISH-SWAL 07/14/16 18:00 07/28/16 17:59 07/23/16 22:44 A/P Assessment and Plan 1. C Difficile Diarrhea Improved Diarrhea, continue Flagyl for 14 days 2. Total Self-care deficit will need SNF at discharge 3. UTI IV Levofloxacin and IV Rocephin, switched to Macrobid however patient developed rash and antibiotic was removed. UTI resolved. 4. Sacral Pressure Ulcer, wound care consulted, Barrier cream recommended turn every 2 hours. 5. OA chronic stable continue Lortab 6. Oral Thrush on Nystatin Stop July 28. 7. Subclinical Hypothyroidism repeat function test in 4 to 6 weeks. 8. Radiculopathy of Lumbar region. numbness on the Left anterior area of the thigh. TL spine MRI showed mild spinal stenosis at L3-4, moderate to moderate spinal stenosis at L4-5 and possibly with mild mass effect/impingement transiting left L5 nerve root with subarticular recess. Neurosurgery was consulted, ordered C-spine MRI which showed mild degenerative changes. Dr. Carballo discussed the case with Dr. Dennison, no intervention needed Left hip x-ray showed moderate to severe left hip osteoarthritis with considerable osteophytosis and apparent large inferior joint body. Continue pain control with oral Hanson, outpatient orthopedic follow-up is recommended. MRI of the left hip ruled out osteomyelitis. Mild findings for Myelopathy, 9. Bilateral Lower extremity Edema chronic issues, Left worse than right. Bilateral Doppler ultrasound negative for DVT. Continue MADIE hose. 10. CKD III Creatinine at baseline. GI prophylaxis: We'll hold PPI until C. difficile is clear. DVT prophylaxis : Lovenox subcutaneously Discharge Planning Awaiting for placement. Gamaliel Cortes MD Jul 25, 2016 18:36 GI prophylaxis: We'll hold PPI until C. difficile is clear. DVT prophylaxis : Lovenox subcutaneously Discharge Planning Awaiting for placement. Gamaliel Cortes MD Jul 25, 2016 18:36
[2016-07-25] MEDS: ACETAMINOPHEN/HYDROcodone 325 MG/5 MG TAB PO PRN (18:44)
[2016-07-25 20:00] VITALS: BP 137/60; PULSE 74; RESP 17; TEMP 96.1; O2SAT 97
[2016-07-25] MEDS: SERTRALINE HCL 100 MG TAB PO SCH (20:14)
[2016-07-25] MEDS: CETIRIZINE HCL 10 MG TAB PO SCH (20:14)
[2016-07-25] MEDS ORDERED: PROMETHAZINE INJ 25 MG/ML VIAL IM ONE (21:30)
[2016-07-26] VITALS: BP 171/81; PULSE 81; RESP 18; TEMP 97.9; O2SAT 96
[2016-07-26 04:00] VITALS: BP 152/75; PULSE 76; RESP 17; TEMP 96.5; O2SAT 94
[2016-07-26] MEDS: ONDANSETRON HCL 4 MG/2 ML VIAL IV PUSH PRN ×2 (04:31→12:42)
[2016-07-26] MEDS: NYSTATIN 100,000 UNIT/GM CREAM 15 GM TOPICAL SCH ×4 (05:04→21:49)
[2016-07-26] MEDS: ASPIRIN EC 81 MG TABEC PO SCH (09:00)
[2016-07-26] MEDS: LACTOBACILLUS ACIDOPHILUS TAB PO SCH ×2 (09:00→21:46)
[2016-07-26] MEDS: LISINOPRIL 20 MG TAB PO SCH (09:00)
[2016-07-26] MEDS: CALAMINE/PRAMOXINE LOTION 180 ML BTL TOPICAL SCH ×2 (09:00→21:00)
[2016-07-26] MEDS: NYSTATIN SUSP 500,000 U/5 ML CUP SWISH-SWAL SCH ×4 (09:00→21:00)
[2016-07-26] MEDS: ENOXAPARIN SODIUM 40 MG/0.4 ML SYRINGE SQ SCH (09:00)
[2016-07-26] MEDS: FUROSEMIDE 20 MG TAB PO SCH (09:00)
[2016-07-26 09:30] VITALS: BP 105/77; PULSE 76; RESP 20; TEMP 96.8; O2SAT 93
[2016-07-26] MEDS: SODIUM CHLORIDE 0.9% FLUSH 5 ML FLUSH FLUSH SCH ×2 (09:41→21:48)
[2016-07-26] MEDS: MUPIROCIN 2% CREAM 15 GM TOPICAL SCH ×2 (09:44→21:49)
[2016-07-26 16:00] VITALS: BP 122/75; PULSE 78; RESP 20; TEMP 96.1; O2SAT 95
[2016-07-26] MEDS ORDERED: metroNIDAZOLE 500 MG TAB PO SCH (16:15)
--- NOTE | 2016-07-26 16:22 | HHI.PR ---
Subjective Remarks This is a pleasant 70 y/o Female with Morbid Obesity, Hypertension, who came on 06/07/16 after fall at home has been in a Wheelchair for the last 6 months, increased weakness, recently discharged home with PT returned to ER on 06/26/16 with persistent diffuse lower extremity weakness, has also OA, Anxiety disorder. Seen with nurse miss Villalobos today complaint of nausea, no vomit or diarrhea added Metoclopramide. Objective Vital Signs Date Time Temp Pulse Resp B/P Pulse Ox O2 Delivery O2 Flow Rate FiO2 07/26/16 09:30 96.8 76 20 105/77 93 07/26/16 04:00 96.5 76 17 152/75 94 07/26/16 00:00 97.9 81 18 171/81 96 07/25/16 20:00 96.1 74 17 137/60 97 I/O 07/25/16 07/25/16 07/25/16 07/26/16 07/26/16 07/26/16 07:00 15:00 23:00 07:00 15:00 23:00 Intake Total 240 ml 960 ml 120 ml 240 ml Output Total 1 ml Balance 240 ml 960 ml 120 ml 240 ml -1 ml Intake Oral 240 ml 960 ml 120 ml 240 ml Stool Total 1 ml # Voids 2 2 1 2 # Bowel Movements 1 1 1 2 Result Diagram: 07/24/16 0650 07/24/16 0650 Imaging Last Impressions Hip MRI 07/05/16 0000 Signed Impressions: Service Date/Time: Tuesday, July 05, 2016 10:51 - CONCLUSION: 1. There is osteopenia primary degenerative changes at both hips, left greater than right. 2. Prominent osteophyte along the inferior articulating surface of the proximal left femur. 3. Nonspecific edema in the gluteus and hamstring muscles. 4. No acute bony fracture. Javier Fishman MD Lower Extremity Ultrasound 06/29/16 0000 Signed Impressions: Service Date/Time: Wednesday, June 29, 2016 10:07 - CONCLUSION: Negative for deep venous thrombosis. Alfredo Sanders MD FACR Cervical Spine MRI 06/27/16 0000 Signed Impressions: Service Date/Time: Monday, June 27, 2016 11:09 - CONCLUSION: Mild degenerative changes otherwise unremarkable cervical spine. Anselmo Leavitt MD Thoracic Spine MRI 06/25/16 0000 Signed Impressions: Service Date/Time: June 19:36 - CONCLUSION: 1. No fracture or subluxation of the thoracic spine. 2. Mild and fairly diffuse degenerative changes as above. 3. Mild left foraminal encroachment at T8/T9 and T9/T10. 4. No significant spinal stenosis at any level. 5. Incidentally seen tiny right and small left pleural effusions, nonspecific. Jeevan Arreola MD Lumbar Spine MRI 06/25/16 0000 Signed Impressions: Service Date/Time: June 19:36 - CONCLUSION: 1. Multilevel lumbar degenerative changes as detailed above. 2. Mild spinal stenosis at L3/L4 without evidence of transiting nerve root impingement. 3. Mild to moderate spinal stenosis at L4/L5 and possibly with mild mass effect/impingement on the transiting left L5 nerve root within the subarticular recess. 4. Mild bilateral foraminal encroachment L3/L4 and L4/L5. Mild to moderate bilateral foraminal encroachment at L5/S1. 5. No fracture or subluxation of the lumbar spine. Jeevan Arreola MD Hip and Pelvis X-Ray 06/25/16 0000 Signed Impressions: Service Date/Time: June 20:27 - CONCLUSION: Moderate to severe left hip' right is with considerable osteophytosis and an apparent large inferior joint body. No fracture or subluxation. Jeevan Arreola MD Chest X-Ray 06/23/16 1402 Signed Impressions: Service Date/Time: Thursday, June 23, 2016 14:13 - CONCLUSION: Normal examination. Elías Moreno MD Procedures No procedures. Other Results Laboratory Tests Test 07/24/16 06:50 White Blood Count 5.7 TH/MM3 Red Blood Count 3.78 MIL/MM3 Hemoglobin 11.5 GM/DL Hematocrit 34.6 % Mean Corpuscular Volume 91.4 FL Mean Corpuscular Hemoglobin 30.3 PG Mean Corpuscular Hemoglobin 33.1 % Concent Red Cell Distribution Width 14.1 % Platelet Count 215 TH/MM3 Mean Platelet Volume 9.2 FL Sodium Level 142 MEQ/L Potassium Level 4.1 MEQ/L Chloride Level 108 MEQ/L Carbon Dioxide Level 26.4 MEQ/L Anion Gap 8 MEQ/L Blood Urea Nitrogen 18 MG/DL Creatinine 0.80 MG/DL Estimat Glomerular Filtration 71 ML/MIN Rate Random Glucose 74 MG/DL Calcium Level 8.2 MG/DL Objective Remarks GENERAL: Well-developed well-nourished. Morbidly obese. In no acute distress. SKIN: Warm and dry. Improving erythema back areas. Erythema on sacral area but no ulcer. HEENT: Normocephalic. Pupils equal and round. Mucous membranes pink and moist. CARDIOVASCULAR: Regular rate and rhythm. No murmur RESPIRATORY: clear to auscultation, no wheezing or crackles. GASTROINTESTINAL: Abdomen soft, non-tender, nondistended. Bowel sounds x4. MUSCULOSKELETAL:No clubbing cyanosis or edema. NEUROLOGICAL: Awake and alert. No focal neurological deficits. PSYCHIATRIC: Appropriate mood and affect; insight and judgment normal. Medications and IVs Current Medications Medications (Trade) Dose Ordered Sig/Alhaji Route Start Time Stop Time Status Last Admin (NS Flush) 2 ml UNSCH PRN FLUSH 06/23/16 20:00 07/25/16 18:44 (NS Flush) 2 ml BID FLUSH 06/23/16 21:00 07/26/16 09:41 (Lovenox Inj) 40 mg Q24H SQ 06/24/16 09:00 07/26/16 09:00 (Narcan Inj) 0.4 mg UNSCH PRN IV 06/23/16 20:00 (Norvasc) 10 mg DAILY PO 06/24/16 10:00 07/25/16 09:02 (Ecotrin Ec) 81 mg DAILY PO 06/25/16 09:00 07/25/16 09:01 (Lasix) 20 mg DAILY PO 06/25/16 09:00 07/25/16 09:02 (Prinivil) 20 mg DAILY PO 06/24/16 10:00 07/25/16 09:02 (Zoloft) 200 mg HS PO 06/24/16 21:00 07/25/16 20:14 (Tylenol) 650 mg Q6H PRN PO 06/26/16 16:15 (Powell 5-325 Mg) 1 tab Q4H PRN PO 06/26/16 16:15 07/25/16 18:44 (Powell 7.5-325 Mg) 1 tab Q4H PRN PO 06/26/16 16:15 07/25/16 11:57 (Caladryl Lotion) 1 applic Q12HR TOPICAL 06/27/16 09:00 07/25/16 20:15 (ZyrTEC) 10 mg HS PO 06/29/16 21:00 07/25/16 20:14 (Lactinex) 1 tab Q12HR PO 07/04/16 21:00 07/25/16 20:14 (Zofran Inj) 4 mg Q6H PRN IV PUSH 07/07/16 13:45 07/26/16 12:42 (Atarax) 50 mg Q6H PRN PO 07/08/16 18:15 07/25/16 18:44 (Pepcid) 10 mg BID PO 07/09/16 21:00 Hold 07/23/16 08:56 (Pill Splitter) 1 ea UNSCH PRN OTHER 07/09/16 15:45 07/11/16 08:23 (Mycostatin Cream) 1 applic Q6HR TOPICAL 07/13/16 13:30 07/26/16 12:19 (Bactroban 2% Cream) 1 applic Q12HR TOPICAL 07/13/16 13:30 07/26/16 09:44 (Mycostatin Liq) 5 ml QID SWISH-SWAL 07/14/16 18:00 07/28/16 17:59 07/23/16 22:44 A/P Assessment and Plan 1. C Difficile Diarrhea Improved Diarrhea, her Flagyl was discontinued but she had new C Diff test positive on July 18, started on Vancomycin 250 mg QID. 2. Total Self-care deficit will need SNF at discharge 3. UTI IV Levofloxacin and IV Rocephin, switched to Macrobid however patient developed rash and antibiotic was removed. UTI resolved. Not on antibiotics at this time. 4. Sacral Pressure Ulcer, wound care consulted, Barrier cream recommended turn every 2 hours. 5. OA chronic stable continue Lortab 6. Oral Thrush on Nystatin Stop July 28. 7. Subclinical Hypothyroidism repeat function test in 4 to 6 weeks. 8. Radiculopathy of Lumbar region. numbness on the Left anterior area of the thigh. TL spine MRI showed mild spinal stenosis at L3-4, moderate to moderate spinal stenosis at L4-5 and possibly with mild mass effect/impingement transiting left L5 nerve root with subarticular recess. Neurosurgery was consulted, ordered C-spine MRI which showed mild degenerative changes. Dr. Carballo discussed the case with Dr. Dennison, no intervention needed Left hip x-ray showed moderate to severe left hip osteoarthritis with considerable osteophytosis and apparent large inferior joint body. Continue pain control with oral Powell, outpatient orthopedic follow-up is recommended. MRI of the left hip ruled out osteomyelitis. Mild findings for Myelopathy, 9. Bilateral Lower extremity Edema chronic issues, Left worse than right. Bilateral Doppler ultrasound negative for DVT. Continue MADIE hose. 10. CKD III Creatinine at baseline. GI prophylaxis: We'll hold PPI until C. difficile is clear. DVT prophylaxis : Lovenox subcutaneously Discharge Planning Awaiting for placement. Ready for Discharge. Gamaliel Cortes MD Jul 26, 2016 16:22
[2016-07-26] MEDS: hydrOXYzine HCL 25 MG TAB PO PRN (17:20)
[2016-07-26] MEDS: VANCOMYCIN 500 MG VIAL (FOR ORAL USE ONLY) PO SCH ×2 (17:20→21:46)
[2016-07-26] MEDS: METOCLOPRAMIDE HCL 10 MG TAB PO PRN ×2 (17:28→21:46)
[2016-07-26 20:00] VITALS: BP 127/69; PULSE 80; RESP 18; TEMP 95.8; O2SAT 94
[2016-07-26] MEDS: SERTRALINE HCL 100 MG TAB PO SCH (21:00)
[2016-07-26] MEDS: CETIRIZINE HCL 10 MG TAB PO SCH (21:00)
[2016-07-27] VITALS: BP 140/69; PULSE 78; RESP 17; TEMP 96; O2SAT 93
[2016-07-27] MEDS: ONDANSETRON HCL 4 MG/2 ML VIAL IV PUSH PRN ×3 (00:44→23:12)
[2016-07-27] MEDS: hydrOXYzine HCL 25 MG TAB PO PRN ×3 (00:45→23:00)
[2016-07-27] MEDS: ACETAMINOPHEN/HYDROcodone 325 MG/7.5 MG TAB PO PRN ×3 (03:56→23:02)
[2016-07-27 04:00] VITALS: BP 140/65; PULSE 76; RESP 17; TEMP 97.7; O2SAT 93
[2016-07-27] MEDS: NYSTATIN 100,000 UNIT/GM CREAM 15 GM TOPICAL SCH ×3 (05:51→17:54)
[2016-07-27 08:00] VITALS: BP 128/70; PULSE 79; RESP 16; TEMP 99; O2SAT 95
--- NOTE | 2016-07-27 08:14 | HHI.PR ---
Subjective Remarks This is a pleasant 70 y/o Female with Morbid Obesity, Hypertension, who came on 06/07/16 after fall at home has been in a Wheelchair for the last 6 months, increased weakness, recently discharged home with PT returned to ER on 06/26/16 with persistent diffuse lower extremity weakness, has also OA, Anxiety disorder. Seen in her bedroom and discussed with nurse Miss Villalobos no new issues, continue present care still awaiting for discharge to SNF. not yet signed documents by her going to SNF. Objective Vital Signs Date Time Temp Pulse Resp B/P Pulse Ox O2 Delivery O2 Flow Rate FiO2 07/27/16 05:51 16 07/27/16 04:00 97.7 76 17 140/65 93 07/27/16 00:00 96.0 78 17 140/69 93 07/26/16 20:00 95.8 80 18 127/69 94 07/26/16 16:00 96.1 78 20 122/75 95 07/26/16 09:30 96.8 76 20 105/77 93 I/O 07/26/16 07/26/16 07/26/16 07/27/16 07/27/16 07/27/16 07:00 15:00 23:00 07:00 15:00 23:00 Intake Total 240 ml 480 ml 480 ml 240 ml Output Total 1 ml Balance 240 ml 479 ml 480 ml 240 ml Intake Oral 240 ml 480 ml 480 ml 240 ml Stool Total 1 ml # Voids 2 2 2 # Bowel Movements 2 1 Result Diagram: 07/24/16 0650 07/24/16 0650 Imaging Last Impressions Hip MRI 07/05/16 0000 Signed Impressions: Service Date/Time: Tuesday, July 05, 2016 10:51 - CONCLUSION: 1. There is osteopenia primary degenerative changes at both hips, left greater than right. 2. Prominent osteophyte along the inferior articulating surface of the proximal left femur. 3. Nonspecific edema in the gluteus and hamstring muscles. 4. No acute bony fracture. Javier Fishman MD Lower Extremity Ultrasound 06/29/16 0000 Signed Impressions: Service Date/Time: Wednesday, June 29, 2016 10:07 - CONCLUSION: Negative for deep venous thrombosis. Alfredo Sanders MD FACR Cervical Spine MRI 06/27/16 0000 Signed Impressions: Service Date/Time: Monday, June 27, 2016 11:09 - CONCLUSION: Mild degenerative changes otherwise unremarkable cervical spine. Anselmo Leavitt MD Thoracic Spine MRI 06/25/16 0000 Signed Impressions: Service Date/Time: June 19:36 - CONCLUSION: 1. No fracture or subluxation of the thoracic spine. 2. Mild and fairly diffuse degenerative changes as above. 3. Mild left foraminal encroachment at T8/T9 and T9/T10. 4. No significant spinal stenosis at any level. 5. Incidentally seen tiny right and small left pleural effusions, nonspecific. Jeevan Arreola MD Lumbar Spine MRI 06/25/16 0000 Signed Impressions: Service Date/Time: June 19:36 - CONCLUSION: 1. Multilevel lumbar degenerative changes as detailed above. 2. Mild spinal stenosis at L3/L4 without evidence of transiting nerve root impingement. 3. Mild to moderate spinal stenosis at L4/L5 and possibly with mild mass effect/impingement on the transiting left L5 nerve root within the subarticular recess. 4. Mild bilateral foraminal encroachment L3/L4 and L4/L5. Mild to moderate bilateral foraminal encroachment at L5/S1. 5. No fracture or subluxation of the lumbar spine. Jeevan Arreola MD Hip and Pelvis X-Ray 06/25/16 0000 Signed Impressions: Service Date/Time: June 20:27 - CONCLUSION: Moderate to severe left hip' right is with considerable osteophytosis and an apparent large inferior joint body. No fracture or subluxation. Jeevan Arreola MD Chest X-Ray 06/23/16 1402 Signed Impressions: Service Date/Time: Thursday, June 23, 2016 14:13 - CONCLUSION: Normal examination. Elías Moreno MD Procedures No procedures. Other Results Laboratory Tests Test 07/24/16 06:50 White Blood Count 5.7 TH/MM3 Red Blood Count 3.78 MIL/MM3 Hemoglobin 11.5 GM/DL Hematocrit 34.6 % Mean Corpuscular Volume 91.4 FL Mean Corpuscular Hemoglobin 30.3 PG Mean Corpuscular Hemoglobin 33.1 % Concent Red Cell Distribution Width 14.1 % Platelet Count 215 TH/MM3 Mean Platelet Volume 9.2 FL Sodium Level 142 MEQ/L Potassium Level 4.1 MEQ/L Chloride Level 108 MEQ/L Carbon Dioxide Level 26.4 MEQ/L Anion Gap 8 MEQ/L Blood Urea Nitrogen 18 MG/DL Creatinine 0.80 MG/DL Estimat Glomerular Filtration 71 ML/MIN Rate Random Glucose 74 MG/DL Calcium Level 8.2 MG/DL Objective Remarks GENERAL: Well-developed well-nourished. Morbidly obese. In no acute distress. SKIN: Warm and dry. Improving erythema back areas. Erythema on sacral area but no ulcer. HEENT: Normocephalic. Pupils equal and round. Mucous membranes pink and moist. CARDIOVASCULAR: Regular rate and rhythm. No murmur RESPIRATORY: clear to auscultation, no wheezing or crackles. GASTROINTESTINAL: Abdomen soft, non-tender, nondistended. Bowel sounds x4. MUSCULOSKELETAL:No clubbing cyanosis or edema. NEUROLOGICAL: Awake and alert. No focal neurological deficits. PSYCHIATRIC: Appropriate mood and affect; insight and judgment normal. Medications and IVs Current Medications Medications (Trade) Dose Ordered Sig/Alhaji Route Start Time Stop Time Status Last Admin (NS Flush) 2 ml UNSCH PRN FLUSH 06/23/16 20:00 07/25/16 18:44 (NS Flush) 2 ml BID FLUSH 06/23/16 21:00 07/26/16 21:48 (Lovenox Inj) 40 mg Q24H SQ 06/24/16 09:00 07/26/16 09:00 (Narcan Inj) 0.4 mg UNSCH PRN IV 06/23/16 20:00 (Norvasc) 10 mg DAILY PO 06/24/16 10:00 07/25/16 09:02 (Ecotrin Ec) 81 mg DAILY PO 06/25/16 09:00 07/25/16 09:01 (Lasix) 20 mg DAILY PO 06/25/16 09:00 07/25/16 09:02 (Prinivil) 20 mg DAILY PO 06/24/16 10:00 07/25/16 09:02 (Zoloft) 200 mg HS PO 06/24/16 21:00 07/25/16 20:14 (Tylenol) 650 mg Q6H PRN PO 06/26/16 16:15 ([place] 5-325 Mg) 1 tab Q4H PRN PO 06/26/16 16:15 07/25/16 18:44 ([place] 7.5-325 Mg) 1 tab Q4H PRN PO 06/26/16 16:15 07/27/16 03:56 (Caladryl Lotion) 1 applic Q12HR TOPICAL 06/27/16 09:00 07/25/16 20:15 (ZyrTEC) 10 mg HS PO 06/29/16 21:00 07/25/16 20:14 (Lactinex) 1 tab Q12HR PO 07/04/16 21:00 07/26/16 21:46 (Zofran Inj) 4 mg Q6H PRN IV PUSH 07/07/16 13:45 07/27/16 00:44 (Atarax) 50 mg Q6H PRN PO 07/08/16 18:15 07/27/16 00:45 (Pepcid) 10 mg BID PO 07/09/16 21:00 Hold 07/23/16 08:56 (Pill Splitter) 1 ea UNSCH PRN OTHER 07/09/16 15:45 07/11/16 08:23 (Mycostatin Cream) 1 applic Q6HR TOPICAL 07/13/16 13:30 07/26/16 21:49 (Bactroban 2% Cream) 1 applic Q12HR TOPICAL 07/13/16 13:30 07/26/16 21:49 (Mycostatin Liq) 5 ml QID SWISH-SWAL 07/14/16 18:00 07/28/16 17:59 07/23/16 22:44 (VANCOMYCIN for oral use only) 250 mg QID PO 07/26/16 18:00 07/26/16 21:46 (Reglan) 10 mg ACHS PRN PO 07/26/16 16:30 07/26/16 21:46 A/P Assessment and Plan 1. C Difficile Diarrhea Improved Diarrhea, her Flagyl was discontinued but she had new C Diff test positive on July 18, started on Vancomycin 250 mg QID. 2. Total Self-care deficit will need SNF at discharge 3. UTI IV Levofloxacin and IV Rocephin, switched to Macrobid however patient developed rash and antibiotic was removed. UTI resolved. Not on antibiotics at this time. 4. Sacral Pressure Ulcer, wound care consulted, Barrier cream recommended turn every 2 hours. 5. OA chronic stable continue Lortab 6. Oral Thrush on Nystatin Stop July 28. 7. Subclinical Hypothyroidism repeat function test in 4 to 6 weeks. 8. Radiculopathy of Lumbar region. numbness on the Left anterior area of the thigh. TL spine MRI showed mild spinal stenosis at L3-4, moderate to moderate spinal stenosis at L4-5 and possibly with mild mass effect/impingement transiting left L5 nerve root with subarticular recess. Neurosurgery was consulted, ordered C-spine MRI which showed mild degenerative changes. Dr. Carballo discussed the case with Dr. Dennison, no intervention needed Left hip x-ray showed moderate to severe left hip osteoarthritis with considerable osteophytosis and apparent large inferior joint body. Continue pain control with oral [place], outpatient orthopedic follow-up is recommended. MRI of the left hip ruled out osteomyelitis. Mild findings for Myelopathy, 9. Bilateral Lower extremity Edema chronic issues, Left worse than right. Bilateral Doppler ultrasound negative for DVT. Continue MADIE hose. 10. CKD III Creatinine at baseline. GI prophylaxis: We'll hold PPI until C. difficile is clear. DVT prophylaxis : Lovenox subcutaneously follow laboratory Discharge Planning Awaiting for placement. Ready for Discharge. Gamaliel Cortes MD Jul 27, 2016 08:14
[2016-07-27] MEDS: CALAMINE/PRAMOXINE LOTION 180 ML BTL TOPICAL SCH ×2 (09:00→23:20)
[2016-07-27] MEDS: LISINOPRIL 20 MG TAB PO SCH (10:16)
[2016-07-27] MEDS: ASPIRIN EC 81 MG TABEC PO SCH (10:16)
[2016-07-27] MEDS: NYSTATIN SUSP 500,000 U/5 ML CUP SWISH-SWAL SCH ×5 (10:16→23:20)
[2016-07-27] MEDS: FUROSEMIDE 20 MG TAB PO SCH (10:16)
[2016-07-27] MEDS: LACTOBACILLUS ACIDOPHILUS TAB PO SCH ×2 (10:16→23:00)
[2016-07-27] MEDS: VANCOMYCIN 500 MG VIAL (FOR ORAL USE ONLY) PO SCH ×4 (10:17→22:59)
[2016-07-27] MEDS: ENOXAPARIN SODIUM 40 MG/0.4 ML SYRINGE SQ SCH (10:17)
[2016-07-27] MEDS: MUPIROCIN 2% CREAM 15 GM TOPICAL SCH ×2 (10:18→23:13)
[2016-07-27] MEDS: SODIUM CHLORIDE 0.9% FLUSH 5 ML FLUSH FLUSH SCH ×2 (10:18→23:13)
[2016-07-27 12:00] VITALS: BP 135/70; PULSE 74; RESP 18; TEMP 98; O2SAT 94
[2016-07-27 16:00] VITALS: BP 119/68; PULSE 70; RESP 16; TEMP 97.4; O2SAT 95
[2016-07-27 20:00] VITALS: BP 142/57; PULSE 74; RESP 19; TEMP 98.2; O2SAT 95
[2016-07-27] MEDS: SERTRALINE HCL 100 MG TAB PO SCH (23:00)
[2016-07-27] MEDS: CETIRIZINE HCL 10 MG TAB PO SCH (23:01)
[2016-07-28] VITALS: BP 146/73; PULSE 74; RESP 18; TEMP 96.4; O2SAT 94
[2016-07-28] MEDS: NYSTATIN 100,000 UNIT/GM CREAM 15 GM TOPICAL SCH ×4 (02:35→18:00)
[2016-07-28 04:00] VITALS: BP 138/65; PULSE 74; RESP 18; TEMP 96.5; O2SAT 94
[2016-07-28] MEDS: hydrOXYzine HCL 25 MG TAB PO PRN ×3 (06:23→22:48)
[2016-07-28] MEDS: ACETAMINOPHEN/HYDROcodone 325 MG/7.5 MG TAB PO PRN ×3 (06:25→22:49)
[2016-07-28 09:00] VITALS: BP 140/80; PULSE 83; RESP 16; TEMP 96.7; O2SAT 94
[2016-07-28] MEDS: NYSTATIN SUSP 500,000 U/5 ML CUP SWISH-SWAL SCH ×3 (09:00→12:47)
[2016-07-28] MEDS: MUPIROCIN 2% CREAM 15 GM TOPICAL SCH ×2 (09:00→22:50)
[2016-07-28] MEDS: CALAMINE/PRAMOXINE LOTION 180 ML BTL TOPICAL SCH ×2 (09:00→21:00)
[2016-07-28] MEDS: LACTOBACILLUS ACIDOPHILUS TAB PO SCH ×2 (09:00→22:50)
[2016-07-28] MEDS: SODIUM CHLORIDE 0.9% FLUSH 5 ML FLUSH FLUSH SCH ×2 (09:00→22:50)
[2016-07-28] MEDS: ASPIRIN EC 81 MG TABEC PO SCH (09:12)
[2016-07-28] MEDS: LISINOPRIL 20 MG TAB PO SCH (09:12)
[2016-07-28] MEDS: FUROSEMIDE 20 MG TAB PO SCH (09:12)
[2016-07-28] MEDS: ENOXAPARIN SODIUM 40 MG/0.4 ML SYRINGE SQ SCH (09:12)
[2016-07-28] MEDS: VANCOMYCIN 500 MG VIAL (FOR ORAL USE ONLY) PO SCH ×4 (09:13→22:49)
--- NOTE | 2016-07-28 11:21 | HHI.PR ---
Subjective Remarks This is a pleasant 70 y/o Female with Morbid Obesity, Hypertension, who came on 06/07/16 after fall at home has been in a Wheelchair for the last 6 months, increased weakness, recently discharged home with PT returned to ER on 06/26/16 with persistent diffuse lower extremity weakness, has also OA, Anxiety disorder. Seen in her bedroom and discussed with nurse Miss Kirti hensley. No Nausea , vomit or diarrhea. Objective Vital Signs Date Time Temp Pulse Resp B/P Pulse Ox O2 Delivery O2 Flow Rate FiO2 07/28/16 04:00 96.5 74 18 138/65 94 07/28/16 00:00 96.4 74 18 146/73 94 07/27/16 20:00 98.2 74 19 142/57 95 07/27/16 16:00 97.4 70 16 119/68 95 07/27/16 12:00 98.0 74 18 135/70 94 I/O 07/27/16 07/27/16 07/27/16 07/28/16 07/28/16 07/28/16 07:00 15:00 23:00 07:00 15:00 23:00 Intake Total 240 ml 360 ml 480 ml 240 ml Balance 240 ml 360 ml 480 ml 240 ml Intake Oral 240 ml 360 ml 480 ml 240 ml # Voids 2 2 1 # Bowel Movements 1 1 1 Result Diagram: 07/24/16 0650 07/24/16 0650 Imaging Last Impressions Hip MRI 07/05/16 0000 Signed Impressions: Service Date/Time: Tuesday, July 05, 2016 10:51 - CONCLUSION: 1. There is osteopenia primary degenerative changes at both hips, left greater than right. 2. Prominent osteophyte along the inferior articulating surface of the proximal left femur. 3. Nonspecific edema in the gluteus and hamstring muscles. 4. No acute bony fracture. Javier Fishman MD Lower Extremity Ultrasound 06/29/16 0000 Signed Impressions: Service Date/Time: Wednesday, June 29, 2016 10:07 - CONCLUSION: Negative for deep venous thrombosis. Alfredo Sanders MD FACR Cervical Spine MRI 06/27/16 0000 Signed Impressions: Service Date/Time: Monday, June 27, 2016 11:09 - CONCLUSION: Mild degenerative changes otherwise unremarkable cervical spine. Anselmo Leavitt MD Thoracic Spine MRI 06/25/16 0000 Signed Impressions: Service Date/Time: June 19:36 - CONCLUSION: 1. No fracture or subluxation of the thoracic spine. 2. Mild and fairly diffuse degenerative changes as above. 3. Mild left foraminal encroachment at T8/T9 and T9/T10. 4. No significant spinal stenosis at any level. 5. Incidentally seen tiny right and small left pleural effusions, nonspecific. Jeevan Arreola MD Lumbar Spine MRI 06/25/16 0000 Signed Impressions: Service Date/Time: June 19:36 - CONCLUSION: 1. Multilevel lumbar degenerative changes as detailed above. 2. Mild spinal stenosis at L3/L4 without evidence of transiting nerve root impingement. 3. Mild to moderate spinal stenosis at L4/L5 and possibly with mild mass effect/impingement on the transiting left L5 nerve root within the subarticular recess. 4. Mild bilateral foraminal encroachment L3/L4 and L4/L5. Mild to moderate bilateral foraminal encroachment at L5/S1. 5. No fracture or subluxation of the lumbar spine. Jeevan Arreola MD Hip and Pelvis X-Ray 06/25/16 0000 Signed Impressions: Service Date/Time: June 20:27 - CONCLUSION: Moderate to severe left hip' right is with considerable osteophytosis and an apparent large inferior joint body. No fracture or subluxation. Jeevan Arreola MD Chest X-Ray 06/23/16 1402 Signed Impressions: Service Date/Time: Thursday, June 23, 2016 14:13 - CONCLUSION: Normal examination. Elías Moreno MD Procedures No procedures. Objective Remarks GENERAL: Well-developed well-nourished. Morbidly obese. In no acute distress. SKIN: Warm and dry. Improving erythema back areas. Erythema on sacral area but no ulcer. HEENT: Normocephalic. Pupils equal and round. Mucous membranes pink and moist. CARDIOVASCULAR: Regular rate and rhythm. No murmur RESPIRATORY: clear to auscultation, no wheezing or crackles. GASTROINTESTINAL: Abdomen soft, non-tender, nondistended. Bowel sounds x4. MUSCULOSKELETAL:No clubbing cyanosis or edema. NEUROLOGICAL: Awake and alert. No focal neurological deficits. PSYCHIATRIC: Appropriate mood and affect; insight and judgment normal. Medications and IVs Current Medications Medications (Trade) Dose Ordered Sig/Alhaji Route Start Time Stop Time Status Last Admin (NS Flush) 2 ml UNSCH PRN FLUSH 06/23/16 20:00 07/25/16 18:44 (NS Flush) 2 ml BID FLUSH 06/23/16 21:00 07/29/16 09:00 (Lovenox Inj) 40 mg Q24H SQ 06/24/16 09:00 07/29/16 11:04 (Narcan Inj) 0.4 mg UNSCH PRN IV 06/23/16 20:00 (Norvasc) 10 mg DAILY PO 06/24/16 10:00 07/29/16 11:02 (Ecotrin Ec) 81 mg DAILY PO 06/25/16 09:00 07/29/16 11:03 (Lasix) 20 mg DAILY PO 06/25/16 09:00 07/29/16 11:03 (Prinivil) 20 mg DAILY PO 06/24/16 10:00 07/29/16 11:03 (Zoloft) 200 mg HS PO 06/24/16 21:00 07/28/16 22:50 (Tylenol) 650 mg Q6H PRN PO 06/26/16 16:15 ([place] 5-325 Mg) 1 tab Q4H PRN PO 06/26/16 16:15 07/25/16 18:44 ([place] 7.5-325 Mg) 1 tab Q4H PRN PO 06/26/16 16:15 07/29/16 15:01 (Caladryl Lotion) 1 applic Q12HR TOPICAL 06/27/16 09:00 07/25/16 20:15 (ZyrTEC) 10 mg HS PO 06/29/16 21:00 07/28/16 22:50 (Lactinex) 1 tab Q12HR PO 07/04/16 21:00 07/29/16 11:00 (Zofran Inj) 4 mg Q6H PRN IV PUSH 07/07/16 13:45 07/29/16 17:15 (Atarax) 50 mg Q6H PRN PO 07/08/16 18:15 07/29/16 17:15 (Pepcid) 10 mg BID PO 07/09/16 21:00 Hold 07/23/16 08:56 (Pill Splitter) 1 ea UNSCH PRN OTHER 07/09/16 15:45 07/11/16 08:23 (Mycostatin Cream) 1 applic Q6HR TOPICAL 07/13/16 13:30 07/29/16 05:30 (Bactroban 2% Cream) 1 applic Q12HR TOPICAL 07/13/16 13:30 07/29/16 09:00 (VANCOMYCIN for oral use only) 250 mg QID PO 07/26/16 18:00 07/29/16 15:00 (Reglan) 10 mg ACHS PRN PO 07/26/16 16:30 07/26/16 21:46 A/P Assessment and Plan 1. C Difficile Diarrhea Improved Diarrhea, her Flagyl was discontinued but she had new C Diff test positive on July 18, started on Vancomycin 250 mg QID. 2. Total Self-care deficit will need SNF at discharge 3. UTI IV Levofloxacin and IV Rocephin, switched to Macrobid however patient developed rash and antibiotic was removed. UTI resolved. Not on antibiotics at this time. 4. Sacral Pressure Ulcer, wound care consulted, Barrier cream recommended turn every 2 hours. 5. OA chronic stable continue Lortab 6. Oral Thrush on Nystatin Stop July 28. 7. Subclinical Hypothyroidism repeat function test in 4 to 6 weeks. 8. Radiculopathy of Lumbar region. numbness on the Left anterior area of the thigh. TL spine MRI showed mild spinal stenosis at L3-4, moderate to moderate spinal stenosis at L4-5 and possibly with mild mass effect/impingement transiting left L5 nerve root with subarticular recess. Neurosurgery was consulted, ordered C-spine MRI which showed mild degenerative changes. Dr. Carballo discussed the case with Dr. Dennison, no intervention needed Left hip x-ray showed moderate to severe left hip osteoarthritis with considerable osteophytosis and apparent large inferior joint body. Continue pain control with oral [place], outpatient orthopedic follow-up is recommended. MRI of the left hip ruled out osteomyelitis. Mild findings for Myelopathy, 9. Bilateral Lower extremity Edema chronic issues, Left worse than right. Bilateral Doppler ultrasound negative for DVT. Continue MADIE hose. 10. CKD III Creatinine at baseline. GI prophylaxis: We'll hold PPI until C. difficile is clear. DVT prophylaxis : Lovenox subcutaneously follow laboratory Discharge Planning Awaiting for placement. Ready for Discharge. Gamaliel Bueno MD Jul 28, 2016 11:21
[2016-07-28 12:00] VITALS: BP 138/74; PULSE 72; RESP 18; TEMP 96.5; O2SAT 96
[2016-07-28] MEDS: ONDANSETRON HCL 4 MG/2 ML VIAL IV PUSH PRN ×2 (13:33→22:48)
[2016-07-28 16:00] VITALS: BP 129/70; PULSE 78; RESP 18; TEMP 97.2; O2SAT 97
[2016-07-28 20:00] VITALS: BP 119/71; PULSE 76; RESP 16; TEMP 96.3; O2SAT 93
[2016-07-28] MEDS: SERTRALINE HCL 100 MG TAB PO SCH (22:50)
[2016-07-28] MEDS: CETIRIZINE HCL 10 MG TAB PO SCH (22:50)
[2016-07-29] VITALS: BP 133/76; PULSE 76; RESP 16; TEMP 96.5; O2SAT 92
[2016-07-29] MEDS: hydrOXYzine HCL 25 MG TAB PO PRN ×4 (05:29→23:32)
[2016-07-29] MEDS: ONDANSETRON HCL 4 MG/2 ML VIAL IV PUSH PRN ×3 (05:29→17:15)
[2016-07-29] MEDS: ACETAMINOPHEN/HYDROcodone 325 MG/7.5 MG TAB PO PRN ×5 (05:30→23:47)
[2016-07-29] MEDS: NYSTATIN 100,000 UNIT/GM CREAM 15 GM TOPICAL SCH ×5 (05:30→22:13)
[2016-07-29 05:49] VITALS: BP 124/75; PULSE 102; RESP 16; TEMP 96.7; O2SAT 97
[2016-07-29 08:00] VITALS: BP 122/66; PULSE 76; RESP 18; TEMP 96.5; O2SAT 93
[2016-07-29] MEDS: SODIUM CHLORIDE 0.9% FLUSH 5 ML FLUSH FLUSH SCH ×2 (09:00→22:12)
[2016-07-29] MEDS: CALAMINE/PRAMOXINE LOTION 180 ML BTL TOPICAL SCH ×2 (09:00→21:00)
[2016-07-29] MEDS: MUPIROCIN 2% CREAM 15 GM TOPICAL SCH ×2 (09:00→22:12)
[2016-07-29] MEDS: VANCOMYCIN 500 MG VIAL (FOR ORAL USE ONLY) PO SCH ×4 (10:58→22:10)
[2016-07-29] MEDS: LACTOBACILLUS ACIDOPHILUS TAB PO SCH ×2 (11:00→22:10)
[2016-07-29] MEDS: FUROSEMIDE 20 MG TAB PO SCH (11:03)
[2016-07-29] MEDS: LISINOPRIL 20 MG TAB PO SCH (11:03)
[2016-07-29] MEDS: ASPIRIN EC 81 MG TABEC PO SCH (11:03)
[2016-07-29] MEDS: ENOXAPARIN SODIUM 40 MG/0.4 ML SYRINGE SQ SCH (11:04)
[2016-07-29 12:00] VITALS: BP 111/70; PULSE 71; RESP 18; TEMP 97; O2SAT 93
[2016-07-29 16:00] VITALS: BP 120/72; PULSE 78; RESP 18; TEMP 96.6; O2SAT 95
--- NOTE | 2016-07-29 18:17 | HHI.PR ---
Subjective Remarks This is a pleasant 70 y/o Female with Morbid Obesity, Hypertension, who came on 06/07/16 after fall at home has been in a Wheelchair for the last 6 months, increased weakness, recently discharged home with PT returned to ER on 06/26/16 with persistent diffuse lower extremity weakness, has also OA, Anxiety disorder. Seen in her bedroom and discussed with nurse Miss Archer patient stable no Nausea, vomit or diarrhea Discussed with her Daughter Mrs. Rut Trujillo to the phone number [phone] all questions answered she wants her Mother going to Rehab first before going home due to that the patient is almost total assist and her father is not able to take care of her. Objective Vital Signs Date Time Temp Pulse Resp B/P Pulse Ox O2 Delivery O2 Flow Rate FiO2 07/29/16 16:00 96.6 78 18 120/72 95 07/29/16 12:00 97.0 71 18 111/70 93 07/29/16 08:00 96.5 76 18 122/66 93 07/29/16 05:49 96.7 102 16 124/75 97 07/29/16 00:00 96.5 76 16 133/76 92 07/28/16 20:00 96.3 76 16 119/71 93 I/O 07/28/16 07/28/16 07/28/16 07/29/16 07/29/16 07/29/16 07:00 15:00 23:00 07:00 15:00 23:00 Intake Total 240 ml 480 ml 200 ml 300 ml 600 ml Balance 240 ml 480 ml 200 ml 300 ml 600 ml Intake Oral 240 ml 480 ml 200 ml 300 ml 600 ml # Voids 3 0 1 2 # Bowel Movements 1 0 0 Imaging Last Impressions Hip MRI 07/05/16 0000 Signed Impressions: Service Date/Time: Tuesday, July 05, 2016 10:51 - CONCLUSION: 1. There is osteopenia primary degenerative changes at both hips, left greater than right. 2. Prominent osteophyte along the inferior articulating surface of the proximal left femur. 3. Nonspecific edema in the gluteus and hamstring muscles. 4. No acute bony fracture. Javier Fishman MD Lower Extremity Ultrasound 06/29/16 0000 Signed Impressions: Service Date/Time: Wednesday, June 29, 2016 10:07 - CONCLUSION: Negative for deep venous thrombosis. Alfredo Sanders MD FACR Cervical Spine MRI 06/27/16 0000 Signed Impressions: Service Date/Time: Monday, June 27, 2016 11:09 - CONCLUSION: Mild degenerative changes otherwise unremarkable cervical spine. Anselmo Leavitt MD Thoracic Spine MRI 06/25/16 0000 Signed Impressions: Service Date/Time: June 19:36 - CONCLUSION: 1. No fracture or subluxation of the thoracic spine. 2. Mild and fairly diffuse degenerative changes as above. 3. Mild left foraminal encroachment at T8/T9 and T9/T10. 4. No significant spinal stenosis at any level. 5. Incidentally seen tiny right and small left pleural effusions, nonspecific. Jeevan Arreola MD Lumbar Spine MRI 06/25/16 0000 Signed Impressions: Service Date/Time: June 19:36 - CONCLUSION: 1. Multilevel lumbar degenerative changes as detailed above. 2. Mild spinal stenosis at L3/L4 without evidence of transiting nerve root impingement. 3. Mild to moderate spinal stenosis at L4/L5 and possibly with mild mass effect/impingement on the transiting left L5 nerve root within the subarticular recess. 4. Mild bilateral foraminal encroachment L3/L4 and L4/L5. Mild to moderate bilateral foraminal encroachment at L5/S1. 5. No fracture or subluxation of the lumbar spine. Jeevan Arreola MD Hip and Pelvis X-Ray 06/25/16 0000 Signed Impressions: Service Date/Time: June 20:27 - CONCLUSION: Moderate to severe left hip' right is with considerable osteophytosis and an apparent large inferior joint body. No fracture or subluxation. Jeevan Arreola MD Chest X-Ray 06/23/16 1402 Signed Impressions: Service Date/Time: Thursday, June 23, 2016 14:13 - CONCLUSION: Normal examination. Elías Moreno MD Procedures No procedures. Other Results Laboratory Tests Test 07/30/16 07:12 White Blood Count 6.3 TH/MM3 Red Blood Count 3.50 MIL/MM3 Hemoglobin 10.2 GM/DL Hematocrit 31.1 % Mean Corpuscular Volume 88.9 FL Mean Corpuscular Hemoglobin 29.2 PG Mean Corpuscular Hemoglobin 32.8 % Concent Red Cell Distribution Width 14.6 % Platelet Count 212 TH/MM3 Mean Platelet Volume 10.1 FL Neutrophils (%) (Auto) 53.3 % Lymphocytes (%) (Auto) 23.3 % Monocytes (%) (Auto) 7.6 % Eosinophils (%) (Auto) 15.2 % Basophils (%) (Auto) 0.6 % Neutrophils # (Auto) 3.3 TH/MM3 Lymphocytes # (Auto) 1.5 TH/MM3 Monocytes # (Auto) 0.5 TH/MM3 Eosinophils # (Auto) 1.0 TH/MM3 Basophils # (Auto) 0.0 TH/MM3 CBC Comment DIFF FINAL Differential Comment Sodium Level 144 MEQ/L Potassium Level 3.2 MEQ/L Chloride Level 104 MEQ/L Carbon Dioxide Level 29.2 MEQ/L Anion Gap 11 MEQ/L Blood Urea Nitrogen 15 MG/DL Creatinine 0.79 MG/DL Estimat Glomerular Filtration 72 ML/MIN Rate Random Glucose 69 MG/DL Calcium Level 8.3 MG/DL Magnesium Level 1.7 MG/DL Objective Remarks GENERAL: Well-developed well-nourished. Morbidly obese. In no acute distress. SKIN: Warm and dry. Improving erythema back areas. Erythema on sacral area but no ulcer. HEENT: Normocephalic. Pupils equal and round. Mucous membranes pink and moist. CARDIOVASCULAR: Regular rate and rhythm. No murmur RESPIRATORY: clear to auscultation, no wheezing or crackles. GASTROINTESTINAL: Abdomen soft, non-tender, nondistended. Bowel sounds x4. MUSCULOSKELETAL:No clubbing cyanosis or edema. NEUROLOGICAL: Awake and alert. No focal neurological deficits. PSYCHIATRIC: Appropriate mood and affect; insight and judgment normal. Medications and IVs Current Medications Medications (Trade) Dose Ordered Sig/Alhaji Route Start Time Stop Time Status Last Admin (NS Flush) 2 ml UNSCH PRN FLUSH 06/23/16 20:00 07/25/16 18:44 (NS Flush) 2 ml BID FLUSH 06/23/16 21:00 07/29/16 09:00 (Lovenox Inj) 40 mg Q24H SQ 06/24/16 09:00 07/29/16 11:04 (Narcan Inj) 0.4 mg UNSCH PRN IV 06/23/16 20:00 (Norvasc) 10 mg DAILY PO 06/24/16 10:00 07/29/16 11:02 (Ecotrin Ec) 81 mg DAILY PO 06/25/16 09:00 07/29/16 11:03 (Lasix) 20 mg DAILY PO 06/25/16 09:00 07/29/16 11:03 (Prinivil) 20 mg DAILY PO 06/24/16 10:00 07/29/16 11:03 (Zoloft) 200 mg HS PO 06/24/16 21:00 07/28/16 22:50 (Tylenol) 650 mg Q6H PRN PO 06/26/16 16:15 ([place] 5-325 Mg) 1 tab Q4H PRN PO 06/26/16 16:15 07/25/16 18:44 ([place] 7.5-325 Mg) 1 tab Q4H PRN PO 06/26/16 16:15 07/29/16 15:01 (Caladryl Lotion) 1 applic Q12HR TOPICAL 06/27/16 09:00 07/25/16 20:15 (ZyrTEC) 10 mg HS PO 06/29/16 21:00 07/28/16 22:50 (Lactinex) 1 tab Q12HR PO 07/04/16 21:00 07/29/16 11:00 (Zofran Inj) 4 mg Q6H PRN IV PUSH 07/07/16 13:45 07/29/16 17:15 (Atarax) 50 mg Q6H PRN PO 07/08/16 18:15 07/29/16 17:15 (Pepcid) 10 mg BID PO 07/09/16 21:00 Hold 07/23/16 08:56 (Pill Splitter) 1 ea UNSCH PRN OTHER 07/09/16 15:45 07/11/16 08:23 (Mycostatin Cream) 1 applic Q6HR TOPICAL 07/13/16 13:30 07/29/16 05:30 (Bactroban 2% Cream) 1 applic Q12HR TOPICAL 07/13/16 13:30 07/29/16 09:00 (VANCOMYCIN for oral use only) 250 mg QID PO 07/26/16 18:00 07/29/16 15:00 (Reglan) 10 mg ACHS PRN PO 07/26/16 16:30 07/26/16 21:46 A/P Assessment and Plan 1. C Difficile Diarrhea Improved Diarrhea, her Flagyl was discontinued but she had new C Diff test positive on July 18, started on Vancomycin 250 mg QID. 2. Total Self-care deficit will need SNF at discharge 3. UTI IV Levofloxacin and IV Rocephin, switched to Macrobid however patient developed rash and antibiotic was removed. UTI resolved. Not on antibiotics at this time. 4. Sacral Pressure Ulcer, wound care consulted, Barrier cream recommended turn every 2 hours. 5. OA chronic stable continue Lortab 6. Oral Thrush on Nystatin Stop July 28. 7. Subclinical Hypothyroidism repeat function test in 4 to 6 weeks. 8. Radiculopathy of Lumbar region. numbness on the Left anterior area of the thigh. TL spine MRI showed mild spinal stenosis at L3-4, moderate to moderate spinal stenosis at L4-5 and possibly with mild mass effect/impingement transiting left L5 nerve root with subarticular recess. Neurosurgery was consulted, ordered C-spine MRI which showed mild degenerative changes. Dr. Carballo discussed the case with Dr. Dennison, no intervention needed Left hip x-ray showed moderate to severe left hip osteoarthritis with considerable osteophytosis and apparent large inferior joint body. Continue pain control with oral [place], outpatient orthopedic follow-up is recommended. MRI of the left hip ruled out osteomyelitis. Mild findings for Myelopathy, 9. Bilateral Lower extremity Edema chronic issues, Left worse than right. Bilateral Doppler ultrasound negative for DVT. Continue MADIE hose. 10. CKD III Creatinine at baseline. follow laboratory in am tomorrow. GI prophylaxis: We'll hold PPI until C. difficile is clear. DVT prophylaxis : Lovenox subcutaneously Discussed with her Daughter Mrs. Rut Trujillo to the phone number [phone] all questions answered she wants her Mother going to Rehab first before going home due to that the patient is almost total assist and her father is not able to take care of her. Discharge Planning Awaiting for placement. Ready for Discharge. Gamaliel Bueno MD Jul 29, 2016 18:17
[2016-07-29 20:00] VITALS: BP 104/69; PULSE 79; RESP 16; TEMP 96.4; O2SAT 97
[2016-07-29] MEDS: CETIRIZINE HCL 10 MG TAB PO SCH (22:10)
[2016-07-29] MEDS: SERTRALINE HCL 100 MG TAB PO SCH (22:10)
[2016-07-30] VITALS: BP 118/72; PULSE 80; RESP 16; TEMP 95.5; O2SAT 92
[2016-07-30] MEDS: hydrOXYzine HCL 25 MG TAB PO PRN ×4 (05:47→23:04)
[2016-07-30] MEDS: ACETAMINOPHEN/HYDROcodone 325 MG/7.5 MG TAB PO PRN ×5 (05:47→23:04)
[2016-07-30] MEDS: NYSTATIN 100,000 UNIT/GM CREAM 15 GM TOPICAL SCH ×3 (05:48→18:46)
[2016-07-30 06:22] VITALS: BP 144/78; PULSE 75; RESP 16; TEMP 96.9; O2SAT 95
[2016-07-30 08:03] LABS: AUTOMATED NEUTROPHIL # 3.3 TH/MM3 (1.8-7.7); BASOPHIL % 0.6 % (0.0-2.0); EOSINOPHIL % 15.2 % (0.0-4.0); HEMATOCRIT 31.1 % (35.0-46.0); HEMO FLAGS DIFF FINAL; LYMPH % 23.3 % (9.0-44.0); LYMPHOCYTE # 1.5 TH/MM3 (1.0-4.8); MEAN CELL VOLUME 88.9 FL (80.0-100.0); MEAN CORPUSCULAR HEMOGLOBIN 29.2 PG (27.0-34.0); MEAN CORPUSCULAR HGB CONC 32.8 % (32.0-36.0); MONO % 7.6 % (0.0-8.0); NEUT % 53.3 % (16.0-70.0); PLATELET COUNT 212 TH/MM3 (150-450); RED CELL DISTRIBUTION WIDTH 14.6 % (11.6-17.2); WHITE BLOOD COUNT 6.3 TH/MM3 (4.0-11.0)
[2016-07-30 08:31] LABS: BICARBONATE 29.2 MEQ/L (21.0-32.0); MAGNESIUM 1.7 MG/DL (1.5-2.5); POTASSIUM 3.2 MEQ/L (3.5-5.1)
[2016-07-30] MEDS: CALAMINE/PRAMOXINE LOTION 180 ML BTL TOPICAL SCH ×2 (09:00→21:00)
[2016-07-30 10:03] VITALS: BP 137/70; PULSE 71; RESP 20; TEMP 97.8; O2SAT 95
[2016-07-30] MEDS: SODIUM CHLORIDE 0.9% FLUSH 5 ML FLUSH FLUSH SCH ×2 (10:48→21:21)
[2016-07-30] MEDS: VANCOMYCIN 500 MG VIAL (FOR ORAL USE ONLY) PO SCH ×4 (10:48→21:19)
[2016-07-30] MEDS: ENOXAPARIN SODIUM 40 MG/0.4 ML SYRINGE SQ SCH (10:48)
[2016-07-30] MEDS: LACTOBACILLUS ACIDOPHILUS TAB PO SCH ×2 (10:49→21:19)
[2016-07-30] MEDS: LISINOPRIL 20 MG TAB PO SCH (10:49)
[2016-07-30] MEDS: FUROSEMIDE 20 MG TAB PO SCH (10:49)
[2016-07-30] MEDS: ASPIRIN EC 81 MG TABEC PO SCH (10:50)
[2016-07-30] MEDS: ONDANSETRON HCL 4 MG/2 ML VIAL IV PUSH PRN ×3 (10:51→23:04)
[2016-07-30] MEDS: MUPIROCIN 2% CREAM 15 GM TOPICAL SCH ×2 (10:51→21:22)
--- NOTE | 2016-07-30 11:43 | HHI.PR ---
Subjective Remarks This is a pleasant 70 y/o Female with Morbid Obesity, Hypertension, who came on 06/07/16 after fall at home has been in a Wheelchair for the last 6 months, increased weakness, recently discharged home with PT returned to ER on 06/26/16 with persistent diffuse lower extremity weakness, has also OA, Anxiety disorder. Seen in her bedroom no new issues, patient stable no complaint, no Nausea, vomit or diarrhea. Objective Vital Signs Date Time Temp Pulse Resp B/P Pulse Ox O2 Delivery O2 Flow Rate FiO2 07/30/16 10:03 97.8 71 20 137/70 95 07/30/16 06:22 96.9 75 16 144/78 95 07/30/16 00:00 95.5 80 16 118/72 92 07/29/16 20:00 96.4 79 16 104/69 97 07/29/16 16:00 96.6 78 18 120/72 95 07/29/16 12:00 97.0 71 18 111/70 93 I/O 07/29/16 07/29/16 07/29/16 07/30/16 07/30/16 07/30/16 07:00 15:00 23:00 07:00 15:00 23:00 Intake Total 300 ml 600 ml 340 ml 300 ml Balance 300 ml 600 ml 340 ml 300 ml Intake Oral 300 ml 600 ml 340 ml 300 ml # Voids 1 2 1 2 # Bowel Movements 0 0 0 Result Diagram: 07/30/16 0712 07/30/16 0712 Imaging Last Impressions Hip MRI 07/05/16 0000 Signed Impressions: Service Date/Time: Tuesday, July 05, 2016 10:51 - CONCLUSION: 1. There is osteopenia primary degenerative changes at both hips, left greater than right. 2. Prominent osteophyte along the inferior articulating surface of the proximal left femur. 3. Nonspecific edema in the gluteus and hamstring muscles. 4. No acute bony fracture. Javier Fishman MD Lower Extremity Ultrasound 06/29/16 0000 Signed Impressions: Service Date/Time: Wednesday, June 29, 2016 10:07 - CONCLUSION: Negative for deep venous thrombosis. Alfredo Sanders MD FACR Cervical Spine MRI 06/27/16 0000 Signed Impressions: Service Date/Time: Monday, June 27, 2016 11:09 - CONCLUSION: Mild degenerative changes otherwise unremarkable cervical spine. Anselmo Leavitt MD Thoracic Spine MRI 06/25/16 0000 Signed Impressions: Service Date/Time: June 19:36 - CONCLUSION: 1. No fracture or subluxation of the thoracic spine. 2. Mild and fairly diffuse degenerative changes as above. 3. Mild left foraminal encroachment at T8/T9 and T9/T10. 4. No significant spinal stenosis at any level. 5. Incidentally seen tiny right and small left pleural effusions, nonspecific. Jeevan Arreola MD Lumbar Spine MRI 06/25/16 0000 Signed Impressions: Service Date/Time: June 19:36 - CONCLUSION: 1. Multilevel lumbar degenerative changes as detailed above. 2. Mild spinal stenosis at L3/L4 without evidence of transiting nerve root impingement. 3. Mild to moderate spinal stenosis at L4/L5 and possibly with mild mass effect/impingement on the transiting left L5 nerve root within the subarticular recess. 4. Mild bilateral foraminal encroachment L3/L4 and L4/L5. Mild to moderate bilateral foraminal encroachment at L5/S1. 5. No fracture or subluxation of the lumbar spine. Jeevan Arreola MD Hip and Pelvis X-Ray 06/25/16 0000 Signed Impressions: Service Date/Time: June 20:27 - CONCLUSION: Moderate to severe left hip' right is with considerable osteophytosis and an apparent large inferior joint body. No fracture or subluxation. Jeevan Arreola MD Chest X-Ray 06/23/16 1402 Signed Impressions: Service Date/Time: Thursday, June 23, 2016 14:13 - CONCLUSION: Normal examination. Elías Moreno MD Procedures No procedures. Other Results Laboratory Tests Test 07/30/16 07:12 White Blood Count 6.3 TH/MM3 Red Blood Count 3.50 MIL/MM3 Hemoglobin 10.2 GM/DL Hematocrit 31.1 % Mean Corpuscular Volume 88.9 FL Mean Corpuscular Hemoglobin 29.2 PG Mean Corpuscular Hemoglobin 32.8 % Concent Red Cell Distribution Width 14.6 % Platelet Count 212 TH/MM3 Mean Platelet Volume 10.1 FL Neutrophils (%) (Auto) 53.3 % Lymphocytes (%) (Auto) 23.3 % Monocytes (%) (Auto) 7.6 % Eosinophils (%) (Auto) 15.2 % Basophils (%) (Auto) 0.6 % Neutrophils # (Auto) 3.3 TH/MM3 Lymphocytes # (Auto) 1.5 TH/MM3 Monocytes # (Auto) 0.5 TH/MM3 Eosinophils # (Auto) 1.0 TH/MM3 Basophils # (Auto) 0.0 TH/MM3 CBC Comment DIFF FINAL Differential Comment Sodium Level 144 MEQ/L Potassium Level 3.2 MEQ/L Chloride Level 104 MEQ/L Carbon Dioxide Level 29.2 MEQ/L Anion Gap 11 MEQ/L Blood Urea Nitrogen 15 MG/DL Creatinine 0.79 MG/DL Estimat Glomerular Filtration 72 ML/MIN Rate Random Glucose 69 MG/DL Calcium Level 8.3 MG/DL Magnesium Level 1.7 MG/DL Objective Remarks GENERAL: Well-developed well-nourished. Morbidly obese. In no acute distress. SKIN: Warm and dry. Improving erythema back areas. Erythema on sacral area but no ulcer. HEENT: Normocephalic. Pupils equal and round. Mucous membranes pink and moist. CARDIOVASCULAR: Regular rate and rhythm. No murmur RESPIRATORY: clear to auscultation, no wheezing or crackles. GASTROINTESTINAL: Abdomen soft, non-tender, nondistended. Bowel sounds x4. MUSCULOSKELETAL:No clubbing cyanosis or edema. NEUROLOGICAL: Awake and alert. No focal neurological deficits. PSYCHIATRIC: Appropriate mood and affect; insight and judgment normal. Medications and IVs Current Medications Medications (Trade) Dose Ordered Sig/Alhaji Route Start Time Stop Time Status Last Admin (NS Flush) 2 ml UNSCH PRN FLUSH 06/23/16 20:00 07/25/16 18:44 (NS Flush) 2 ml BID FLUSH 06/23/16 21:00 07/30/16 10:48 (Lovenox Inj) 40 mg Q24H SQ 06/24/16 09:00 07/30/16 10:48 (Narcan Inj) 0.4 mg UNSCH PRN IV 06/23/16 20:00 (Norvasc) 10 mg DAILY PO 06/24/16 10:00 07/30/16 10:49 (Ecotrin Ec) 81 mg DAILY PO 06/25/16 09:00 07/30/16 10:50 (Lasix) 20 mg DAILY PO 06/25/16 09:00 07/30/16 10:49 (Prinivil) 20 mg DAILY PO 06/24/16 10:00 07/30/16 10:49 (Zoloft) 200 mg HS PO 06/24/16 21:00 07/29/16 22:10 (Tylenol) 650 mg Q6H PRN PO 06/26/16 16:15 ([place] 5-325 Mg) 1 tab Q4H PRN PO 06/26/16 16:15 07/25/16 18:44 ([place] 7.5-325 Mg) 1 tab Q4H PRN PO 06/26/16 16:15 07/30/16 15:08 (Caladryl Lotion) 1 applic Q12HR TOPICAL 06/27/16 09:00 07/25/16 20:15 (ZyrTEC) 10 mg HS PO 06/29/16 21:00 07/29/16 22:10 (Lactinex) 1 tab Q12HR PO 07/04/16 21:00 07/30/16 10:49 (Zofran Inj) 4 mg Q6H PRN IV PUSH 07/07/16 13:45 07/30/16 10:51 (Atarax) 50 mg Q6H PRN PO 07/08/16 18:15 07/30/16 12:30 (Pepcid) 10 mg BID PO 07/09/16 21:00 Hold 07/23/16 08:56 (Pill Splitter) 1 ea UNSCH PRN OTHER 07/09/16 15:45 07/11/16 08:23 (Mycostatin Cream) 1 applic Q6HR TOPICAL 07/13/16 13:30 07/30/16 12:31 (Bactroban 2% Cream) 1 applic Q12HR TOPICAL 07/13/16 13:30 07/30/16 10:51 (VANCOMYCIN for oral use only) 250 mg QID PO 07/26/16 18:00 07/30/16 13:33 (Reglan) 10 mg ACHS PRN PO 07/26/16 16:30 07/30/16 13:33 A/P Assessment and Plan 1. C Difficile Diarrhea Improved Diarrhea, her Flagyl was discontinued but she had new C Diff test positive on July 18, started on Vancomycin 250 mg QID. 2. Total Self-care deficit will need SNF at discharge 3. UTI IV Levofloxacin and IV Rocephin, switched to Macrobid however patient developed rash and antibiotic was removed. UTI resolved. Not on antibiotics at this time. 4. Sacral Pressure Ulcer, wound care consulted, Barrier cream recommended turn every 2 hours. 5. OA chronic stable continue Lortab 6. Oral Thrush on Nystatin Stop July 28. 7. Subclinical Hypothyroidism repeat function test in 4 to 6 weeks. 8. Radiculopathy of Lumbar region. numbness on the Left anterior area of the thigh. TL spine MRI showed mild spinal stenosis at L3-4, moderate to moderate spinal stenosis at L4-5 and possibly with mild mass effect/impingement transiting left L5 nerve root with subarticular recess. Neurosurgery was consulted, ordered C-spine MRI which showed mild degenerative changes. Dr. Carballo discussed the case with Dr. Dennison, no intervention needed Left hip x-ray showed moderate to severe left hip osteoarthritis with considerable osteophytosis and apparent large inferior joint body. Continue pain control with oral [place], outpatient orthopedic follow-up is recommended. MRI of the left hip ruled out osteomyelitis. Mild findings for Myelopathy, 9. Bilateral Lower extremity Edema chronic issues, Left worse than right. Bilateral Doppler ultrasound negative for DVT. Continue MADIE hose. 10. Electrolyte derangement Hypokalemia replaced and Hypomagnesemia replaced. GI prophylaxis: We'll hold PPI until C. difficile is clear. DVT prophylaxis : Lovenox subcutaneously Follow potassium level in am tomorrow. Discharge Planning Awaiting for placement. Ready for Discharge. Gamaliel Bueno MD Jul 30, 2016 11:43
[2016-07-30 11:50] VITALS: BP 158/87; PULSE 78; RESP 20; TEMP 95.8; O2SAT 94
[2016-07-30] MEDS: METOCLOPRAMIDE HCL 10 MG TAB PO PRN (13:33)
[2016-07-30 15:50] VITALS: BP 145/93; PULSE 68; RESP 20; TEMP 95.9; O2SAT 95
[2016-07-30] MEDS ORDERED: POTASSIUM CHLORIDE 20 MEQ CONTROLLED RELEASE TAB PO ONE (17:15)
[2016-07-30] MEDS: MAGNESIUM SULFATE 1 GM PREMIX 100 ML IV SCH ×2 (18:00→21:21)
[2016-07-30 20:00] VITALS: BP 99/75; PULSE 69; RESP 16; TEMP 95.7; O2SAT 95
[2016-07-30] MEDS: CETIRIZINE HCL 10 MG TAB PO SCH (21:19)
[2016-07-30] MEDS: SERTRALINE HCL 100 MG TAB PO SCH (21:19)
[2016-07-31 00:30] VITALS: BP 113/68; PULSE 74; RESP 16; TEMP 96.2; O2SAT 94
[2016-07-31] MEDS: ONDANSETRON HCL 4 MG/2 ML VIAL IV PUSH PRN ×3 (05:35→16:46)
[2016-07-31] MEDS: hydrOXYzine HCL 25 MG TAB PO PRN ×3 (05:35→18:07)
[2016-07-31] MEDS: ACETAMINOPHEN/HYDROcodone 325 MG/7.5 MG TAB PO PRN ×4 (05:36→22:03)
[2016-07-31] MEDS: NYSTATIN 100,000 UNIT/GM CREAM 15 GM TOPICAL SCH ×5 (05:36→22:04)
[2016-07-31 06:07] VITALS: BP 124/65; PULSE 65; RESP 16; TEMP 95.9; O2SAT 65
[2016-07-31 08:00] VITALS: BP 138/75; PULSE 76; RESP 20; TEMP 96; O2SAT 94
[2016-07-31] MEDS: MUPIROCIN 2% CREAM 15 GM TOPICAL SCH ×2 (09:00→22:04)
[2016-07-31] MEDS: SODIUM CHLORIDE 0.9% FLUSH 5 ML FLUSH FLUSH SCH ×2 (09:00→22:02)
[2016-07-31] MEDS: CALAMINE/PRAMOXINE LOTION 180 ML BTL TOPICAL SCH ×2 (09:00→21:00)
[2016-07-31] MEDS: FUROSEMIDE 20 MG TAB PO SCH (09:12)
[2016-07-31] MEDS: ASPIRIN EC 81 MG TABEC PO SCH (09:12)
[2016-07-31] MEDS: LISINOPRIL 20 MG TAB PO SCH (09:12)
[2016-07-31] MEDS: LACTOBACILLUS ACIDOPHILUS TAB PO SCH ×2 (09:12→22:02)
[2016-07-31] MEDS: VANCOMYCIN 500 MG VIAL (FOR ORAL USE ONLY) PO SCH ×4 (09:13→22:01)
[2016-07-31] MEDS: ENOXAPARIN SODIUM 40 MG/0.4 ML SYRINGE SQ SCH (09:13)
[2016-07-31 12:00] VITALS: BP 141/70; PULSE 69; RESP 20; TEMP 96; O2SAT 94
--- NOTE | 2016-07-31 12:52 | HHI.PR ---
Subjective Remarks This is a pleasant 70 y/o Female with Morbid Obesity, Hypertension, who came on 06/07/16 after fall at home has been in a Wheelchair for the last 6 months, increased weakness, recently discharged home with PT returned to ER on 06/26/16 with persistent diffuse lower extremity weakness, has also OA, Anxiety disorder. Seen in her bedroom no new issues, patient stable no complaint, no Nausea, vomit or diarrhea. Objective Vital Signs Date Time Temp Pulse Resp B/P Pulse Ox O2 Delivery O2 Flow Rate FiO2 07/31/16 12:00 96.0 69 20 141/70 94 07/31/16 08:00 96.0 76 20 138/75 94 07/31/16 06:07 95.9 65 16 124/65 65 07/31/16 00:30 96.2 74 16 113/68 94 07/30/16 20:00 95.7 69 16 99/75 95 07/30/16 15:50 95.9 68 20 145/93 95 I/O 07/30/16 07/30/16 07/30/16 07/31/16 07/31/16 07/31/16 07:00 15:00 23:00 07:00 15:00 23:00 Intake Total 300 ml 360 ml 450 ml 200 ml Balance 300 ml 360 ml 450 ml 200 ml Intake Oral 300 ml 360 ml 450 ml 200 ml # Voids 2 3 1 0 3 # Bowel Movements 0 0 0 0 Result Diagram: 07/30/16 0712 07/31/16 1047 Imaging Last Impressions Hip MRI 07/05/16 0000 Signed Impressions: Service Date/Time: Tuesday, July 05, 2016 10:51 - CONCLUSION: 1. There is osteopenia primary degenerative changes at both hips, left greater than right. 2. Prominent osteophyte along the inferior articulating surface of the proximal left femur. 3. Nonspecific edema in the gluteus and hamstring muscles. 4. No acute bony fracture. Javier Fishman MD Lower Extremity Ultrasound 06/29/16 0000 Signed Impressions: Service Date/Time: Wednesday, June 29, 2016 10:07 - CONCLUSION: Negative for deep venous thrombosis. Alfredo Sanders MD FACR Cervical Spine MRI 06/27/16 0000 Signed Impressions: Service Date/Time: Monday, June 27, 2016 11:09 - CONCLUSION: Mild degenerative changes otherwise unremarkable cervical spine. Anselmo Leavitt MD Thoracic Spine MRI 06/25/16 0000 Signed Impressions: Service Date/Time: June 19:36 - CONCLUSION: 1. No fracture or subluxation of the thoracic spine. 2. Mild and fairly diffuse degenerative changes as above. 3. Mild left foraminal encroachment at T8/T9 and T9/T10. 4. No significant spinal stenosis at any level. 5. Incidentally seen tiny right and small left pleural effusions, nonspecific. Jeevan Arreola MD Lumbar Spine MRI 06/25/16 0000 Signed Impressions: Service Date/Time: June 19:36 - CONCLUSION: 1. Multilevel lumbar degenerative changes as detailed above. 2. Mild spinal stenosis at L3/L4 without evidence of transiting nerve root impingement. 3. Mild to moderate spinal stenosis at L4/L5 and possibly with mild mass effect/impingement on the transiting left L5 nerve root within the subarticular recess. 4. Mild bilateral foraminal encroachment L3/L4 and L4/L5. Mild to moderate bilateral foraminal encroachment at L5/S1. 5. No fracture or subluxation of the lumbar spine. Jeevan Arreola MD Hip and Pelvis X-Ray 06/25/16 0000 Signed Impressions: Service Date/Time: June 20:27 - CONCLUSION: Moderate to severe left hip' right is with considerable osteophytosis and an apparent large inferior joint body. No fracture or subluxation. Jeevan Arreola MD Chest X-Ray 06/23/16 1402 Signed Impressions: Service Date/Time: Thursday, June 23, 2016 14:13 - CONCLUSION: Normal examination. Elías Moreno MD Procedures No procedures. Other Results Laboratory Tests Test 07/30/16 07/31/16 07:12 10:47 White Blood Count 6.3 TH/MM3 Red Blood Count 3.50 MIL/MM3 Hemoglobin 10.2 GM/DL Hematocrit 31.1 % Mean Corpuscular Volume 88.9 FL Mean Corpuscular Hemoglobin 29.2 PG Mean Corpuscular Hemoglobin 32.8 % Concent Red Cell Distribution Width 14.6 % Platelet Count 212 TH/MM3 Mean Platelet Volume 10.1 FL Neutrophils (%) (Auto) 53.3 % Lymphocytes (%) (Auto) 23.3 % Monocytes (%) (Auto) 7.6 % Eosinophils (%) (Auto) 15.2 % Basophils (%) (Auto) 0.6 % Neutrophils # (Auto) 3.3 TH/MM3 Lymphocytes # (Auto) 1.5 TH/MM3 Monocytes # (Auto) 0.5 TH/MM3 Eosinophils # (Auto) 1.0 TH/MM3 Basophils # (Auto) 0.0 TH/MM3 CBC Comment DIFF FINAL Differential Comment Sodium Level 144 MEQ/L Chloride Level 104 MEQ/L Carbon Dioxide Level 29.2 MEQ/L Anion Gap 11 MEQ/L Blood Urea Nitrogen 15 MG/DL Creatinine 0.79 MG/DL Estimat Glomerular Filtration 72 ML/MIN Rate Random Glucose 69 MG/DL Calcium Level 8.3 MG/DL Magnesium Level 1.7 MG/DL Potassium Level 3.9 MEQ/L Objective Remarks GENERAL: Well-developed well-nourished. Morbidly obese. In no acute distress. SKIN: Warm and dry. Improving erythema back areas. Erythema on sacral area but no ulcer. HEENT: Normocephalic. Pupils equal and round. Mucous membranes pink and moist. CARDIOVASCULAR: Regular rate and rhythm. No murmur RESPIRATORY: clear to auscultation, no wheezing or crackles. GASTROINTESTINAL: Abdomen soft, non-tender, nondistended. Bowel sounds x4. MUSCULOSKELETAL:No clubbing cyanosis or edema. NEUROLOGICAL: Awake and alert. No focal neurological deficits. PSYCHIATRIC: Appropriate mood and affect; insight and judgment normal. Medications and IVs Current Medications Medications (Trade) Dose Ordered Sig/Alhaji Route Start Time Stop Time Status Last Admin (NS Flush) 2 ml UNSCH PRN FLUSH 06/23/16 20:00 07/25/16 18:44 (NS Flush) 2 ml BID FLUSH 06/23/16 21:00 07/31/16 09:00 (Lovenox Inj) 40 mg Q24H SQ 06/24/16 09:00 07/31/16 09:13 (Narcan Inj) 0.4 mg UNSCH PRN IV 06/23/16 20:00 (Norvasc) 10 mg DAILY PO 06/24/16 10:00 07/31/16 09:12 (Ecotrin Ec) 81 mg DAILY PO 06/25/16 09:00 07/31/16 09:12 (Lasix) 20 mg DAILY PO 06/25/16 09:00 07/31/16 09:12 (Prinivil) 20 mg DAILY PO 06/24/16 10:00 07/31/16 09:12 (Zoloft) 200 mg HS PO 06/24/16 21:00 07/30/16 21:19 (Tylenol) 650 mg Q6H PRN PO 06/26/16 16:15 ([place] 5-325 Mg) 1 tab Q4H PRN PO 06/26/16 16:15 07/25/16 18:44 ([place] 7.5-325 Mg) 1 tab Q4H PRN PO 06/26/16 16:15 07/31/16 11:57 (Caladryl Lotion) 1 applic Q12HR TOPICAL 06/27/16 09:00 07/31/16 09:00 (ZyrTEC) 10 mg HS PO 06/29/16 21:00 07/30/16 21:19 (Lactinex) 1 tab Q12HR PO 07/04/16 21:00 07/31/16 09:12 (Zofran Inj) 4 mg Q6H PRN IV PUSH 07/07/16 13:45 07/31/16 09:15 (Atarax) 50 mg Q6H PRN PO 07/08/16 18:15 07/31/16 11:57 (Pepcid) 10 mg BID PO 07/09/16 21:00 Hold 07/23/16 08:56 (Pill Splitter) 1 ea UNSCH PRN OTHER 07/09/16 15:45 07/11/16 08:23 (Mycostatin Cream) 1 applic Q6HR TOPICAL 07/13/16 13:30 07/31/16 12:00 (Bactroban 2% Cream) 1 applic Q12HR TOPICAL 07/13/16 13:30 07/30/16 21:22 (VANCOMYCIN for oral use only) 250 mg QID PO 07/26/16 18:00 07/31/16 11:57 (Reglan) 10 mg ACHS PRN PO 07/26/16 16:30 07/30/16 13:33 A/P Assessment and Plan 1. C Difficile Diarrhea Improved Diarrhea, her Flagyl was discontinued but she had new C Diff test positive on July 18, started on Vancomycin 250 mg QID. 2. Total Self-care deficit will need SNF at discharge 3. UTI IV Levofloxacin and IV Rocephin, switched to Macrobid however patient developed rash and antibiotic was removed. UTI resolved. Not on antibiotics at this time. 4. Sacral Pressure Ulcer, wound care consulted, Barrier cream recommended turn every 2 hours. 5. OA chronic stable continue Lortab 6. Oral Thrush on Nystatin Stop July 28. 7. Subclinical Hypothyroidism repeat function test in 4 to 6 weeks. 8. Radiculopathy of Lumbar region. numbness on the Left anterior area of the thigh. TL spine MRI showed mild spinal stenosis at L3-4, moderate to moderate spinal stenosis at L4-5 and possibly with mild mass effect/impingement transiting left L5 nerve root with subarticular recess. Neurosurgery was consulted, ordered C-spine MRI which showed mild degenerative changes. Dr. Carballo discussed the case with Dr. Dennison, no intervention needed Left hip x-ray showed moderate to severe left hip osteoarthritis with considerable osteophytosis and apparent large inferior joint body. Continue pain control with oral [place], outpatient orthopedic follow-up is recommended. MRI of the left hip ruled out osteomyelitis. Mild findings for Myelopathy, 9. Bilateral Lower extremity Edema chronic issues, Left worse than right. Bilateral Doppler ultrasound negative for DVT. Continue MADIE hose. 10. Electrolyte derangement Hypokalemia replaced and Hypomagnesemia replaced. GI prophylaxis: We'll hold PPI until C. difficile is clear. DVT prophylaxis : Lovenox subcutaneously Discharge Planning Awaiting for placement. Ready for Discharge. Gamaliel Bueno MD Jul 31, 2016 12:52 Gamaliel Bueno MD Jul 31, 2016 12:52
[2016-07-31 16:06] VITALS: BP 127/64; PULSE 71; RESP 20; TEMP 96.1; O2SAT 94
[2016-07-31 20:00] VITALS: BP 105/59; PULSE 74; RESP 17; TEMP 96.7; O2SAT 95
[2016-07-31] MEDS: SERTRALINE HCL 100 MG TAB PO SCH (22:02)
[2016-07-31] MEDS: METOCLOPRAMIDE HCL 10 MG TAB PO PRN (22:02)
[2016-07-31] MEDS: CETIRIZINE HCL 10 MG TAB PO SCH (22:03)
[2016-08-01] VITALS: BP 110/59; PULSE 78; RESP 17; TEMP 96.9; O2SAT 96
[2016-08-01 04:00] VITALS: BP 147/54; PULSE 68; RESP 16; TEMP 96.5; O2SAT 97
[2016-08-01] MEDS: ACETAMINOPHEN/HYDROcodone 325 MG/7.5 MG TAB PO PRN ×4 (05:36→21:43)
[2016-08-01] MEDS: hydrOXYzine HCL 25 MG TAB PO PRN ×3 (05:37→21:43)
[2016-08-01] MEDS: ONDANSETRON HCL 4 MG/2 ML VIAL IV PUSH PRN ×3 (05:37→21:46)
[2016-08-01] MEDS: NYSTATIN 100,000 UNIT/GM CREAM 15 GM TOPICAL SCH ×4 (06:00→23:37)
[2016-08-01] MEDS: FUROSEMIDE 20 MG TAB PO SCH (08:07)
[2016-08-01] MEDS: VANCOMYCIN 500 MG VIAL (FOR ORAL USE ONLY) PO SCH ×4 (08:07→21:43)
[2016-08-01] MEDS: LACTOBACILLUS ACIDOPHILUS TAB PO SCH ×2 (08:07→21:43)
[2016-08-01] MEDS: ENOXAPARIN SODIUM 40 MG/0.4 ML SYRINGE SQ SCH (08:07)
[2016-08-01] MEDS: LISINOPRIL 20 MG TAB PO SCH (08:07)
[2016-08-01] MEDS: ASPIRIN EC 81 MG TABEC PO SCH (08:08)
[2016-08-01] MEDS: MUPIROCIN 2% CREAM 15 GM TOPICAL SCH ×2 (08:08→21:00)
[2016-08-01] MEDS: CALAMINE/PRAMOXINE LOTION 180 ML BTL TOPICAL SCH ×2 (08:08→21:00)
[2016-08-01] MEDS: SODIUM CHLORIDE 0.9% FLUSH 5 ML FLUSH FLUSH SCH ×2 (08:08→21:46)
[2016-08-01 08:45] VITALS: BP 113/62; PULSE 66; RESP 16; TEMP 96.7; O2SAT 95
[2016-08-01 12:55] VITALS: BP 121/82; PULSE 72; RESP 16; TEMP 96; O2SAT 95
[2016-08-01 16:00] VITALS: BP 135/75; PULSE 69; RESP 16; TEMP 96.6; O2SAT 95
--- NOTE | 2016-08-01 16:06 | HHI.PR ---
Subjective Remarks This is a pleasant 70 y/o Female with Morbid Obesity, Hypertension, who came on 06/07/16 after fall at home has been in a Wheelchair for the last 6 months, increased weakness, recently discharged home with PT returned to ER on 06/26/16 with persistent diffuse lower extremity weakness, has also OA, Anxiety disorder. No new issues discussed with nurse and with patient no Placement yet for the patient. Objective Vital Signs Date Time Temp Pulse Resp B/P Pulse Ox O2 Delivery O2 Flow Rate FiO2 08/01/16 12:55 96.0 72 16 121/82 95 08/01/16 08:45 96.7 66 16 113/62 95 08/01/16 06:45 16 08/01/16 04:00 96.5 68 16 147/54 97 08/01/16 00:00 96.9 78 17 110/59 96 07/31/16 20:00 96.7 74 17 105/59 95 I/O 07/31/16 07/31/16 07/31/16 08/01/16 08/01/16 08/01/16 07:00 15:00 23:00 07:00 15:00 23:00 Intake Total 200 ml 480 ml 240 ml Balance 200 ml 480 ml 240 ml Intake Oral 200 ml 480 ml 240 ml # Voids 0 3 2 # Bowel Movements 0 Result Diagram: 07/30/16 0712 07/31/16 1047 Imaging Last Impressions Hip MRI 07/05/16 0000 Signed Impressions: Service Date/Time: Tuesday, July 05, 2016 10:51 - CONCLUSION: 1. There is osteopenia primary degenerative changes at both hips, left greater than right. 2. Prominent osteophyte along the inferior articulating surface of the proximal left femur. 3. Nonspecific edema in the gluteus and hamstring muscles. 4. No acute bony fracture. Javier Fishman MD Lower Extremity Ultrasound 06/29/16 0000 Signed Impressions: Service Date/Time: Wednesday, June 29, 2016 10:07 - CONCLUSION: Negative for deep venous thrombosis. Alfredo Sanders MD FACR Cervical Spine MRI 06/27/16 0000 Signed Impressions: Service Date/Time: Monday, June 27, 2016 11:09 - CONCLUSION: Mild degenerative changes otherwise unremarkable cervical spine. Anselmo Leavitt MD Thoracic Spine MRI 06/25/16 0000 Signed Impressions: Service Date/Time: June 19:36 - CONCLUSION: 1. No fracture or subluxation of the thoracic spine. 2. Mild and fairly diffuse degenerative changes as above. 3. Mild left foraminal encroachment at T8/T9 and T9/T10. 4. No significant spinal stenosis at any level. 5. Incidentally seen tiny right and small left pleural effusions, nonspecific. Jeevan Arreola MD Lumbar Spine MRI 06/25/16 0000 Signed Impressions: Service Date/Time: June 19:36 - CONCLUSION: 1. Multilevel lumbar degenerative changes as detailed above. 2. Mild spinal stenosis at L3/L4 without evidence of transiting nerve root impingement. 3. Mild to moderate spinal stenosis at L4/L5 and possibly with mild mass effect/impingement on the transiting left L5 nerve root within the subarticular recess. 4. Mild bilateral foraminal encroachment L3/L4 and L4/L5. Mild to moderate bilateral foraminal encroachment at L5/S1. 5. No fracture or subluxation of the lumbar spine. Jeevan Arreola MD Hip and Pelvis X-Ray 06/25/16 0000 Signed Impressions: Service Date/Time: June 20:27 - CONCLUSION: Moderate to severe left hip' right is with considerable osteophytosis and an apparent large inferior joint body. No fracture or subluxation. Jeevan Arreola MD Chest X-Ray 06/23/16 1402 Signed Impressions: Service Date/Time: Thursday, June 23, 2016 14:13 - CONCLUSION: Normal examination. Elías Moreno MD Procedures No procedures. Other Results Laboratory Tests Test 07/30/16 07/31/16 07:12 10:47 White Blood Count 6.3 TH/MM3 Red Blood Count 3.50 MIL/MM3 Hemoglobin 10.2 GM/DL Hematocrit 31.1 % Mean Corpuscular Volume 88.9 FL Mean Corpuscular Hemoglobin 29.2 PG Mean Corpuscular Hemoglobin 32.8 % Concent Red Cell Distribution Width 14.6 % Platelet Count 212 TH/MM3 Mean Platelet Volume 10.1 FL Neutrophils (%) (Auto) 53.3 % Lymphocytes (%) (Auto) 23.3 % Monocytes (%) (Auto) 7.6 % Eosinophils (%) (Auto) 15.2 % Basophils (%) (Auto) 0.6 % Neutrophils # (Auto) 3.3 TH/MM3 Lymphocytes # (Auto) 1.5 TH/MM3 Monocytes # (Auto) 0.5 TH/MM3 Eosinophils # (Auto) 1.0 TH/MM3 Basophils # (Auto) 0.0 TH/MM3 CBC Comment DIFF FINAL Differential Comment Sodium Level 144 MEQ/L Chloride Level 104 MEQ/L Carbon Dioxide Level 29.2 MEQ/L Anion Gap 11 MEQ/L Blood Urea Nitrogen 15 MG/DL Creatinine 0.79 MG/DL Estimat Glomerular Filtration 72 ML/MIN Rate Random Glucose 69 MG/DL Calcium Level 8.3 MG/DL Magnesium Level 1.7 MG/DL Potassium Level 3.9 MEQ/L Objective Remarks GENERAL: Well-developed well-nourished. Morbidly obese. In no acute distress. SKIN: Warm and dry. Improving erythema back areas. Erythema on sacral area but no ulcer. HEENT: Normocephalic. Pupils equal and round. Mucous membranes pink and moist. CARDIOVASCULAR: Regular rate and rhythm. No murmur RESPIRATORY: clear to auscultation, no wheezing or crackles. GASTROINTESTINAL: Abdomen soft, non-tender, nondistended. Bowel sounds x4. MUSCULOSKELETAL:No clubbing cyanosis or edema. NEUROLOGICAL: Awake and alert. No focal neurological deficits. PSYCHIATRIC: Appropriate mood and affect; insight and judgment normal. Medications and IVs Current Medications Medications (Trade) Dose Ordered Sig/Alhaji Route Start Time Stop Time Status Last Admin (NS Flush) 2 ml UNSCH PRN FLUSH 06/23/16 20:00 07/25/16 18:44 (NS Flush) 2 ml BID FLUSH 06/23/16 21:00 08/01/16 08:08 (Lovenox Inj) 40 mg Q24H SQ 06/24/16 09:00 08/01/16 08:07 (Narcan Inj) 0.4 mg UNSCH PRN IV 06/23/16 20:00 (Norvasc) 10 mg DAILY PO 06/24/16 10:00 08/01/16 08:07 (Ecotrin Ec) 81 mg DAILY PO 06/25/16 09:00 08/01/16 08:08 (Lasix) 20 mg DAILY PO 06/25/16 09:00 08/01/16 08:07 (Prinivil) 20 mg DAILY PO 06/24/16 10:00 08/01/16 08:07 (Zoloft) 200 mg HS PO 06/24/16 21:00 07/31/16 22:02 (Tylenol) 650 mg Q6H PRN PO 06/26/16 16:15 ([place] 5-325 Mg) 1 tab Q4H PRN PO 06/26/16 16:15 07/25/16 18:44 ([place] 7.5-325 Mg) 1 tab Q4H PRN PO 06/26/16 16:15 08/01/16 13:48 (Caladryl Lotion) 1 applic Q12HR TOPICAL 06/27/16 09:00 07/31/16 21:00 (ZyrTEC) 10 mg HS PO 06/29/16 21:00 07/31/16 22:03 (Lactinex) 1 tab Q12HR PO 07/04/16 21:00 08/01/16 08:07 (Zofran Inj) 4 mg Q6H PRN IV PUSH 07/07/16 13:45 08/01/16 13:48 (Atarax) 50 mg Q6H PRN PO 07/08/16 18:15 08/01/16 13:48 (Pepcid) 10 mg BID PO 07/09/16 21:00 Hold 07/23/16 08:56 (Pill Splitter) 1 ea UNSCH PRN OTHER 07/09/16 15:45 07/11/16 08:23 (Mycostatin Cream) 1 applic Q6HR TOPICAL 07/13/16 13:30 08/01/16 06:00 (Bactroban 2% Cream) 1 applic Q12HR TOPICAL 07/13/16 13:30 07/31/16 22:04 (VANCOMYCIN for oral use only) 250 mg QID PO 07/26/16 18:00 08/01/16 13:44 (Reglan) 10 mg ACHS PRN PO 07/26/16 16:30 07/31/16 22:02 A/P Assessment and Plan 1. C Difficile Diarrhea Improved Diarrhea, her Flagyl was discontinued but she had new C Diff test positive on July 18, started on Vancomycin 250 mg QID. 2. Total Self-care deficit will need SNF at discharge 3. UTI IV Levofloxacin and IV Rocephin, switched to Macrobid however patient developed rash and antibiotic was removed. UTI resolved. Not on antibiotics at this time. 4. Sacral Pressure Ulcer, wound care consulted, Barrier cream recommended turn every 2 hours. 5. OA chronic stable continue Lortab 6. Oral Thrush on Nystatin Stop July 28. 7. Subclinical Hypothyroidism repeat function test in 4 to 6 weeks. 8. Radiculopathy of Lumbar region. numbness on the Left anterior area of the thigh. TL spine MRI showed mild spinal stenosis at L3-4, moderate to moderate spinal stenosis at L4-5 and possibly with mild mass effect/impingement transiting left L5 nerve root with subarticular recess. Neurosurgery was consulted, ordered C-spine MRI which showed mild degenerative changes. Dr. Carballo discussed the case with Dr. Dennison, no intervention needed Left hip x-ray showed moderate to severe left hip osteoarthritis with considerable osteophytosis and apparent large inferior joint body. Continue pain control with oral [place], outpatient orthopedic follow-up is recommended. MRI of the left hip ruled out osteomyelitis. Mild findings for Myelopathy, 9. Bilateral Lower extremity Edema chronic issues, Left worse than right. Bilateral Doppler ultrasound negative for DVT. Continue MADIE hose. 10. Electrolyte derangement Hypokalemia replaced and Hypomagnesemia replaced. GI prophylaxis: We'll hold PPI until C. difficile is clear. DVT prophylaxis : Lovenox subcutaneously No changes to anterior assessment patient awaiting for placement Discharge Planning Awaiting for placement. Ready for Discharge. Gamaliel Bueno MD Aug 01, 2016 16:06
[2016-08-01 20:53] VITALS: BP 131/66; PULSE 76; RESP 20; TEMP 97.6; O2SAT 93
[2016-08-01] MEDS: CETIRIZINE HCL 10 MG TAB PO SCH (21:43)
[2016-08-01] MEDS: SERTRALINE HCL 100 MG TAB PO SCH (21:43)
[2016-08-02 00:14] VITALS: BP 129/67; PULSE 88; RESP 20; TEMP 97.5; O2SAT 94
[2016-08-02] MEDS: ACETAMINOPHEN/HYDROcodone 325 MG/7.5 MG TAB PO PRN ×4 (04:04→23:24)
[2016-08-02] MEDS: hydrOXYzine HCL 25 MG TAB PO PRN ×4 (04:04→23:25)
[2016-08-02 04:49] VITALS: BP 138/76; PULSE 77; RESP 20; TEMP 98.1; O2SAT 96
[2016-08-02] MEDS: NYSTATIN 100,000 UNIT/GM CREAM 15 GM TOPICAL SCH ×4 (05:17→23:38)
[2016-08-02 08:00] VITALS: BP 118/61; PULSE 75; RESP 16; TEMP 96.8; O2SAT 93
--- NOTE | 2016-08-02 08:48 | HHI.PR ---
Subjective Remarks This is a pleasant 70 y/o Female with Morbid Obesity, Hypertension, who came on 06/07/16 after fall at home has been in a Wheelchair for the last 6 months, increased weakness, recently discharged home with PT returned to ER on 06/26/16 with persistent diffuse lower extremity weakness, has also OA, Anxiety disorder. Seen in the room and discussed with nurse Coni shellie. Objective Vital Signs Date Time Temp Pulse Resp B/P Pulse Ox O2 Delivery O2 Flow Rate FiO2 08/02/16 04:49 98.1 77 20 138/76 96 08/02/16 00:14 97.5 88 20 129/67 94 08/01/16 20:53 97.6 76 20 131/66 93 08/01/16 16:00 96.6 69 16 135/75 95 08/01/16 12:55 96.0 72 16 121/82 95 I/O 08/01/16 08/01/16 08/01/16 08/02/16 08/02/16 08/02/16 07:00 15:00 23:00 07:00 15:00 23:00 Intake Total 240 ml 240 ml 240 ml 240 ml Balance 240 ml 240 ml 240 ml 240 ml Intake Oral 240 ml 240 ml 240 ml 240 ml # Voids 2 1 2 1 # Bowel Movements 1 1 Result Diagram: 07/30/16 0712 07/31/16 1047 Imaging Last Impressions Hip MRI 07/05/16 0000 Signed Impressions: Service Date/Time: Tuesday, July 05, 2016 10:51 - CONCLUSION: 1. There is osteopenia primary degenerative changes at both hips, left greater than right. 2. Prominent osteophyte along the inferior articulating surface of the proximal left femur. 3. Nonspecific edema in the gluteus and hamstring muscles. 4. No acute bony fracture. Javier Fishman MD Lower Extremity Ultrasound 06/29/16 0000 Signed Impressions: Service Date/Time: Wednesday, June 29, 2016 10:07 - CONCLUSION: Negative for deep venous thrombosis. Alfredo Sanders MD FACR Cervical Spine MRI 06/27/16 0000 Signed Impressions: Service Date/Time: Monday, June 27, 2016 11:09 - CONCLUSION: Mild degenerative changes otherwise unremarkable cervical spine. Anselmo Leavitt MD Thoracic Spine MRI 06/25/16 0000 Signed Impressions: Service Date/Time: June 19:36 - CONCLUSION: 1. No fracture or subluxation of the thoracic spine. 2. Mild and fairly diffuse degenerative changes as above. 3. Mild left foraminal encroachment at T8/T9 and T9/T10. 4. No significant spinal stenosis at any level. 5. Incidentally seen tiny right and small left pleural effusions, nonspecific. Jeevan Arreola MD Lumbar Spine MRI 06/25/16 0000 Signed Impressions: Service Date/Time: June 19:36 - CONCLUSION: 1. Multilevel lumbar degenerative changes as detailed above. 2. Mild spinal stenosis at L3/L4 without evidence of transiting nerve root impingement. 3. Mild to moderate spinal stenosis at L4/L5 and possibly with mild mass effect/impingement on the transiting left L5 nerve root within the subarticular recess. 4. Mild bilateral foraminal encroachment L3/L4 and L4/L5. Mild to moderate bilateral foraminal encroachment at L5/S1. 5. No fracture or subluxation of the lumbar spine. Jeevan Arreola MD Hip and Pelvis X-Ray 06/25/16 0000 Signed Impressions: Service Date/Time: June 20:27 - CONCLUSION: Moderate to severe left hip' right is with considerable osteophytosis and an apparent large inferior joint body. No fracture or subluxation. Jeevan Arreola MD Chest X-Ray 06/23/16 1402 Signed Impressions: Service Date/Time: Thursday, June 23, 2016 14:13 - CONCLUSION: Normal examination. Elías Moreno MD Procedures No procedures. Other Results Laboratory Tests Test 07/30/16 07/31/16 07:12 10:47 White Blood Count 6.3 TH/MM3 Red Blood Count 3.50 MIL/MM3 Hemoglobin 10.2 GM/DL Hematocrit 31.1 % Mean Corpuscular Volume 88.9 FL Mean Corpuscular Hemoglobin 29.2 PG Mean Corpuscular Hemoglobin 32.8 % Concent Red Cell Distribution Width 14.6 % Platelet Count 212 TH/MM3 Mean Platelet Volume 10.1 FL Neutrophils (%) (Auto) 53.3 % Lymphocytes (%) (Auto) 23.3 % Monocytes (%) (Auto) 7.6 % Eosinophils (%) (Auto) 15.2 % Basophils (%) (Auto) 0.6 % Neutrophils # (Auto) 3.3 TH/MM3 Lymphocytes # (Auto) 1.5 TH/MM3 Monocytes # (Auto) 0.5 TH/MM3 Eosinophils # (Auto) 1.0 TH/MM3 Basophils # (Auto) 0.0 TH/MM3 CBC Comment DIFF FINAL Differential Comment Sodium Level 144 MEQ/L Chloride Level 104 MEQ/L Carbon Dioxide Level 29.2 MEQ/L Anion Gap 11 MEQ/L Blood Urea Nitrogen 15 MG/DL Creatinine 0.79 MG/DL Estimat Glomerular Filtration 72 ML/MIN Rate Random Glucose 69 MG/DL Calcium Level 8.3 MG/DL Magnesium Level 1.7 MG/DL Potassium Level 3.9 MEQ/L Objective Remarks GENERAL: Well-developed well-nourished. Morbidly obese. In no acute distress. SKIN: Warm and dry. Improving erythema back areas. Erythema on sacral area but no ulcer. HEENT: Normocephalic. Pupils equal and round. Mucous membranes pink and moist. CARDIOVASCULAR: Regular rate and rhythm. No murmur RESPIRATORY: clear to auscultation, no wheezing or crackles. GASTROINTESTINAL: Abdomen soft, non-tender, nondistended. Bowel sounds x4. MUSCULOSKELETAL:No clubbing cyanosis or edema. NEUROLOGICAL: Awake and alert. No focal neurological deficits. PSYCHIATRIC: Appropriate mood and affect; insight and judgment normal. Medications and IVs Current Medications Medications (Trade) Dose Ordered Sig/Alhaji Route Start Time Stop Time Status Last Admin (NS Flush) 2 ml UNSCH PRN FLUSH 06/23/16 20:00 07/25/16 18:44 (NS Flush) 2 ml BID FLUSH 06/23/16 21:00 08/01/16 21:46 (Lovenox Inj) 40 mg Q24H SQ 06/24/16 09:00 08/01/16 08:07 (Narcan Inj) 0.4 mg UNSCH PRN IV 06/23/16 20:00 (Norvasc) 10 mg DAILY PO 06/24/16 10:00 08/01/16 08:07 (Ecotrin Ec) 81 mg DAILY PO 06/25/16 09:00 08/01/16 08:08 (Lasix) 20 mg DAILY PO 06/25/16 09:00 08/01/16 08:07 (Prinivil) 20 mg DAILY PO 06/24/16 10:00 08/01/16 08:07 (Zoloft) 200 mg HS PO 06/24/16 21:00 08/01/16 21:43 (Tylenol) 650 mg Q6H PRN PO 06/26/16 16:15 ([place] 5-325 Mg) 1 tab Q4H PRN PO 06/26/16 16:15 07/25/16 18:44 ([place] 7.5-325 Mg) 1 tab Q4H PRN PO 06/26/16 16:15 08/02/16 04:04 (Caladryl Lotion) 1 applic Q12HR TOPICAL 06/27/16 09:00 07/31/16 21:00 (ZyrTEC) 10 mg HS PO 06/29/16 21:00 08/01/16 21:43 (Lactinex) 1 tab Q12HR PO 07/04/16 21:00 08/01/16 21:43 (Zofran Inj) 4 mg Q6H PRN IV PUSH 07/07/16 13:45 08/01/16 21:46 (Atarax) 50 mg Q6H PRN PO 07/08/16 18:15 08/02/16 04:04 (Pepcid) 10 mg BID PO 07/09/16 21:00 Hold 07/23/16 08:56 (Pill Splitter) 1 ea UNSCH PRN OTHER 07/09/16 15:45 07/11/16 08:23 (Mycostatin Cream) 1 applic Q6HR TOPICAL 07/13/16 13:30 08/01/16 06:00 (Bactroban 2% Cream) 1 applic Q12HR TOPICAL 07/13/16 13:30 08/01/16 21:00 (VANCOMYCIN for oral use only) 250 mg QID PO 07/26/16 18:00 08/01/16 21:43 (Reglan) 10 mg ACHS PRN PO 07/26/16 16:30 07/31/16 22:02 A/P Assessment and Plan 1. C Difficile Diarrhea Improved Diarrhea, her Flagyl was discontinued but she had new C Diff test positive on July 18, started on Vancomycin 250 mg QID. 2. Total Self-care deficit will need SNF at discharge 3. UTI IV Levofloxacin and IV Rocephin, switched to Macrobid however patient developed rash and antibiotic was removed. UTI resolved. Not on antibiotics at this time. 4. Sacral Pressure Ulcer, wound care consulted, Barrier cream recommended turn every 2 hours. 5. OA chronic stable continue Lortab 6. Oral Thrush on Nystatin Stop July 28. 7. Subclinical Hypothyroidism repeat function test in 4 to 6 weeks. 8. Radiculopathy of Lumbar region. numbness on the Left anterior area of the thigh. TL spine MRI showed mild spinal stenosis at L3-4, moderate to moderate spinal stenosis at L4-5 and possibly with mild mass effect/impingement transiting left L5 nerve root with subarticular recess. Neurosurgery was consulted, ordered C-spine MRI which showed mild degenerative changes. Dr. Carballo discussed the case with Dr. Dennison, no intervention needed Left hip x-ray showed moderate to severe left hip osteoarthritis with considerable osteophytosis and apparent large inferior joint body. Continue pain control with oral [place], outpatient orthopedic follow-up is recommended. MRI of the left hip ruled out osteomyelitis. Mild findings for Myelopathy, 9. Bilateral Lower extremity Edema chronic issues, Left worse than right. Bilateral Doppler ultrasound negative for DVT. Continue MADIE hose. 10. Electrolyte derangement Hypokalemia replaced and Hypomagnesemia replaced. GI prophylaxis: We'll hold PPI until C. difficile is clear. DVT prophylaxis : Lovenox subcutaneously Discharge Planning Awaiting for placement. Ready for Discharge. Gamaliel Bueno MD Aug 02, 2016 08:48 Gamaliel Bueno MD Aug 02, 2016 08:48
[2016-08-02] MEDS: ASPIRIN EC 81 MG TABEC PO SCH (08:55)
[2016-08-02] MEDS: LISINOPRIL 20 MG TAB PO SCH (08:55)
[2016-08-02] MEDS: ENOXAPARIN SODIUM 40 MG/0.4 ML SYRINGE SQ SCH (08:55)
[2016-08-02] MEDS: FUROSEMIDE 20 MG TAB PO SCH (08:55)
[2016-08-02] MEDS: LACTOBACILLUS ACIDOPHILUS TAB PO SCH ×2 (08:55→23:24)
[2016-08-02] MEDS: MUPIROCIN 2% CREAM 15 GM TOPICAL SCH ×2 (08:56→23:25)
[2016-08-02] MEDS: CALAMINE/PRAMOXINE LOTION 180 ML BTL TOPICAL SCH ×2 (08:56→23:38)
[2016-08-02] MEDS: SODIUM CHLORIDE 0.9% FLUSH 5 ML FLUSH FLUSH SCH ×2 (08:56→23:24)
[2016-08-02] MEDS: VANCOMYCIN 500 MG VIAL (FOR ORAL USE ONLY) PO SCH ×4 (08:56→23:23)
[2016-08-02] MEDS: ONDANSETRON HCL 4 MG/2 ML VIAL IV PUSH PRN ×3 (09:19→23:24)
[2016-08-02 12:00] VITALS: BP 119/61; PULSE 68; RESP 16; TEMP 96.6; O2SAT 94
[2016-08-02 16:00] VITALS: BP 114/64; PULSE 83; RESP 16; TEMP 96.7; O2SAT 94
[2016-08-02 20:00] VITALS: BP 128/62; PULSE 74; RESP 17; TEMP 96.9; O2SAT 92
[2016-08-02] MEDS: CETIRIZINE HCL 10 MG TAB PO SCH (23:24)
[2016-08-02] MEDS: SERTRALINE HCL 100 MG TAB PO SCH (23:25)
[2016-08-03] VITALS: BP 126/54; PULSE 74; RESP 17; TEMP 97.9; O2SAT 93
[2016-08-03 04:00] VITALS: BP 130/62; PULSE 69; RESP 16; TEMP 97.4; O2SAT 93
[2016-08-03] MEDS: NYSTATIN 100,000 UNIT/GM CREAM 15 GM TOPICAL SCH ×4 (05:33→23:11)
--- NOTE | 2016-08-03 08:25 | HHI.PR ---
Subjective Remarks This is a pleasant 70 y/o Female with Morbid Obesity, Hypertension, who came on 06/07/16 after fall at home has been in a Wheelchair for the last 6 months, increased weakness, recently discharged home with PT returned to ER on 06/26/16 with persistent diffuse lower extremity weakness, has also OA, Anxiety disorder. Seen in her bedroom and discussed with nurse Joshi no new issues, patient not helping with activity. maximum assist patient. Objective Vital Signs Date Time Temp Pulse Resp B/P Pulse Ox O2 Delivery O2 Flow Rate FiO2 08/03/16 04:00 97.4 69 16 130/62 93 08/03/16 01:35 16 08/03/16 00:00 97.9 74 17 126/54 93 08/02/16 20:00 96.9 74 17 128/62 92 08/02/16 16:00 96.7 83 16 114/64 94 08/02/16 12:00 96.6 68 16 119/61 94 I/O 08/02/16 08/02/16 08/02/16 08/03/16 08/03/16 08/03/16 07:00 15:00 23:00 07:00 15:00 23:00 Intake Total 240 ml 480 ml 120 ml 480 ml Balance 240 ml 480 ml 120 ml 480 ml Intake Oral 240 ml 480 ml 120 ml 480 ml # Voids 1 2 1 1 # Bowel Movements 1 1 Result Diagram: 07/30/16 0712 07/31/16 1047 Imaging Last Impressions Hip MRI 07/05/16 0000 Signed Impressions: Service Date/Time: Tuesday, July 05, 2016 10:51 - CONCLUSION: 1. There is osteopenia primary degenerative changes at both hips, left greater than right. 2. Prominent osteophyte along the inferior articulating surface of the proximal left femur. 3. Nonspecific edema in the gluteus and hamstring muscles. 4. No acute bony fracture. Javier Fishman MD Lower Extremity Ultrasound 06/29/16 0000 Signed Impressions: Service Date/Time: Wednesday, June 29, 2016 10:07 - CONCLUSION: Negative for deep venous thrombosis. Alfredo Sanders MD FACR Cervical Spine MRI 06/27/16 0000 Signed Impressions: Service Date/Time: Monday, June 27, 2016 11:09 - CONCLUSION: Mild degenerative changes otherwise unremarkable cervical spine. Anselmo Leavitt MD Thoracic Spine MRI 06/25/16 0000 Signed Impressions: Service Date/Time: June 19:36 - CONCLUSION: 1. No fracture or subluxation of the thoracic spine. 2. Mild and fairly diffuse degenerative changes as above. 3. Mild left foraminal encroachment at T8/T9 and T9/T10. 4. No significant spinal stenosis at any level. 5. Incidentally seen tiny right and small left pleural effusions, nonspecific. Jeevan Arreola MD Lumbar Spine MRI 06/25/16 0000 Signed Impressions: Service Date/Time: June 19:36 - CONCLUSION: 1. Multilevel lumbar degenerative changes as detailed above. 2. Mild spinal stenosis at L3/L4 without evidence of transiting nerve root impingement. 3. Mild to moderate spinal stenosis at L4/L5 and possibly with mild mass effect/impingement on the transiting left L5 nerve root within the subarticular recess. 4. Mild bilateral foraminal encroachment L3/L4 and L4/L5. Mild to moderate bilateral foraminal encroachment at L5/S1. 5. No fracture or subluxation of the lumbar spine. Jeevan Arreola MD Hip and Pelvis X-Ray 06/25/16 0000 Signed Impressions: Service Date/Time: June 20:27 - CONCLUSION: Moderate to severe left hip' right is with considerable osteophytosis and an apparent large inferior joint body. No fracture or subluxation. Jeevan Arreola MD Chest X-Ray 06/23/16 1402 Signed Impressions: Service Date/Time: Thursday, June 23, 2016 14:13 - CONCLUSION: Normal examination. Elías Moreno MD Procedures No procedures. Other Results Laboratory Tests Test 07/30/16 07/31/16 07:12 10:47 White Blood Count 6.3 TH/MM3 Red Blood Count 3.50 MIL/MM3 Hemoglobin 10.2 GM/DL Hematocrit 31.1 % Mean Corpuscular Volume 88.9 FL Mean Corpuscular Hemoglobin 29.2 PG Mean Corpuscular Hemoglobin 32.8 % Concent Red Cell Distribution Width 14.6 % Platelet Count 212 TH/MM3 Mean Platelet Volume 10.1 FL Neutrophils (%) (Auto) 53.3 % Lymphocytes (%) (Auto) 23.3 % Monocytes (%) (Auto) 7.6 % Eosinophils (%) (Auto) 15.2 % Basophils (%) (Auto) 0.6 % Neutrophils # (Auto) 3.3 TH/MM3 Lymphocytes # (Auto) 1.5 TH/MM3 Monocytes # (Auto) 0.5 TH/MM3 Eosinophils # (Auto) 1.0 TH/MM3 Basophils # (Auto) 0.0 TH/MM3 CBC Comment DIFF FINAL Differential Comment Sodium Level 144 MEQ/L Chloride Level 104 MEQ/L Carbon Dioxide Level 29.2 MEQ/L Anion Gap 11 MEQ/L Blood Urea Nitrogen 15 MG/DL Creatinine 0.79 MG/DL Estimat Glomerular Filtration 72 ML/MIN Rate Random Glucose 69 MG/DL Calcium Level 8.3 MG/DL Magnesium Level 1.7 MG/DL Potassium Level 3.9 MEQ/L Objective Remarks GENERAL: Well-developed. Morbidly obese. In no acute distress. SKIN: Warm and dry. Improving erythema back areas. Erythema on sacral area but no ulcer. HEENT: Normocephalic. Pupils equal and round. Mucous membranes pink and moist. CARDIOVASCULAR: Regular rate and rhythm. No murmur RESPIRATORY: clear to auscultation, no wheezing or crackles. GASTROINTESTINAL: Abdomen soft, non-tender, nondistended. Bowel sounds x4. MUSCULOSKELETAL:No clubbing cyanosis or edema. NEUROLOGICAL: Awake and alert. No focal neurological deficits. PSYCHIATRIC: Appropriate mood and affect; insight and judgment normal. Medications and IVs Current Medications Medications (Trade) Dose Ordered Sig/Alhaji Route Start Time Stop Time Status Last Admin (NS Flush) 2 ml UNSCH PRN FLUSH 06/23/16 20:00 07/25/16 18:44 (NS Flush) 2 ml BID FLUSH 06/23/16 21:00 08/02/16 23:24 (Lovenox Inj) 40 mg Q24H SQ 06/24/16 09:00 08/02/16 08:55 (Narcan Inj) 0.4 mg UNSCH PRN IV 06/23/16 20:00 (Norvasc) 10 mg DAILY PO 06/24/16 10:00 08/02/16 08:55 (Ecotrin Ec) 81 mg DAILY PO 06/25/16 09:00 08/02/16 08:55 (Lasix) 20 mg DAILY PO 06/25/16 09:00 08/02/16 08:55 (Prinivil) 20 mg DAILY PO 06/24/16 10:00 08/02/16 08:55 (Zoloft) 200 mg HS PO 06/24/16 21:00 08/02/16 23:25 (Tylenol) 650 mg Q6H PRN PO 06/26/16 16:15 ([place] 5-325 Mg) 1 tab Q4H PRN PO 06/26/16 16:15 07/25/16 18:44 ([place] 7.5-325 Mg) 1 tab Q4H PRN PO 06/26/16 16:15 08/02/16 23:24 (Caladryl Lotion) 1 applic Q12HR TOPICAL 06/27/16 09:00 08/02/16 23:38 (ZyrTEC) 10 mg HS PO 06/29/16 21:00 08/02/16 23:24 (Lactinex) 1 tab Q12HR PO 07/04/16 21:00 08/02/16 23:24 (Zofran Inj) 4 mg Q6H PRN IV PUSH 07/07/16 13:45 08/02/16 23:24 (Atarax) 50 mg Q6H PRN PO 07/08/16 18:15 08/02/16 23:25 (Pepcid) 10 mg BID PO 07/09/16 21:00 Hold 07/23/16 08:56 (Pill Splitter) 1 ea UNSCH PRN OTHER 07/09/16 15:45 07/11/16 08:23 (Mycostatin Cream) 1 applic Q6HR TOPICAL 07/13/16 13:30 08/02/16 23:38 (Bactroban 2% Cream) 1 applic Q12HR TOPICAL 07/13/16 13:30 08/02/16 23:25 (VANCOMYCIN for oral use only) 250 mg QID PO 07/26/16 18:00 08/02/16 23:23 (Reglan) 10 mg ACHS PRN PO 07/26/16 16:30 07/31/16 22:02 A/P Assessment and Plan 1. C Difficile Diarrhea Improved Diarrhea, her Flagyl was discontinued but she had new C Diff test positive on July 18, started on Vancomycin 250 mg QID started on 07/27/16 2. Total Self-care deficit will need SNF at discharge 3. UTI IV Levofloxacin and IV Rocephin, switched to Macrobid however patient developed rash and antibiotic was removed. UTI resolved. Not on antibiotics at this time. 4. Sacral Pressure Ulcer, wound care consulted, Barrier cream recommended turn every 2 hours. 5. OA chronic stable continue Lortab 6. Oral Thrush on Nystatin Stop July 28. 7. Subclinical Hypothyroidism repeat function test in 4 to 6 weeks. 8. Radiculopathy of Lumbar region. numbness on the Left anterior area of the thigh. TL spine MRI showed mild spinal stenosis at L3-4, moderate to moderate spinal stenosis at L4-5 and possibly with mild mass effect/impingement transiting left L5 nerve root with subarticular recess. Neurosurgery was consulted, ordered C-spine MRI which showed mild degenerative changes. Dr. Carballo discussed the case with Dr. Dennison, no intervention needed Left hip x-ray showed moderate to severe left hip osteoarthritis with considerable osteophytosis and apparent large inferior joint body. Continue pain control with oral [place], outpatient orthopedic follow-up is recommended. MRI of the left hip ruled out osteomyelitis. Mild findings for Myelopathy, 9. Bilateral Lower extremity Edema chronic issues, Left worse than right. Bilateral Doppler ultrasound negative for DVT. Continue MADIE hose. 10. Electrolyte derangement Hypokalemia replaced and Hypomagnesemia replaced. GI prophylaxis: We'll hold PPI until C. difficile is clear. DVT prophylaxis : Lovenox subcutaneously No changes to anterior assessment patient awaiting for placement Discharge Planning Awaiting for placement. Ready for Discharge. Gamaliel Bueno MD Aug 03, 2016 08:25
[2016-08-03 09:00] VITALS: BP 116/60; PULSE 70; RESP 18; TEMP 97.8; O2SAT 92
[2016-08-03] MEDS: ENOXAPARIN SODIUM 40 MG/0.4 ML SYRINGE SQ SCH (10:39)
[2016-08-03] MEDS: VANCOMYCIN 500 MG VIAL (FOR ORAL USE ONLY) PO SCH ×4 (10:39→23:10)
[2016-08-03] MEDS: ASPIRIN EC 81 MG TABEC PO SCH (10:40)
[2016-08-03] MEDS: LISINOPRIL 20 MG TAB PO SCH (10:41)
[2016-08-03] MEDS: FUROSEMIDE 20 MG TAB PO SCH (10:41)
[2016-08-03] MEDS: ACETAMINOPHEN/HYDROcodone 325 MG/7.5 MG TAB PO PRN ×3 (10:41→23:09)
[2016-08-03] MEDS: LACTOBACILLUS ACIDOPHILUS TAB PO SCH ×2 (10:41→23:09)
[2016-08-03] MEDS: hydrOXYzine HCL 25 MG TAB PO PRN ×3 (10:41→23:08)
[2016-08-03] MEDS: SODIUM CHLORIDE 0.9% FLUSH 5 ML FLUSH FLUSH SCH ×2 (10:42→23:10)
[2016-08-03] MEDS: ONDANSETRON HCL 4 MG/2 ML VIAL IV PUSH PRN ×2 (10:42→23:10)
[2016-08-03] MEDS: CALAMINE/PRAMOXINE LOTION 180 ML BTL TOPICAL SCH ×2 (10:59→23:11)
[2016-08-03] MEDS: MUPIROCIN 2% CREAM 15 GM TOPICAL SCH ×2 (10:59→23:11)
[2016-08-03 14:00] VITALS: BP 121/73; PULSE 84; RESP 18; TEMP 96; O2SAT 94
[2016-08-03 17:30] VITALS: BP 113/73; PULSE 72; RESP 18; TEMP 96.1; O2SAT 95
[2016-08-03 21:45] VITALS: BP 118/59; PULSE 73; RESP 18; TEMP 96.4; O2SAT 95
[2016-08-03] MEDS: CETIRIZINE HCL 10 MG TAB PO SCH (23:08)
[2016-08-03] MEDS: SERTRALINE HCL 100 MG TAB PO SCH (23:09)
[2016-08-04] MEDS: NYSTATIN 100,000 UNIT/GM CREAM 15 GM TOPICAL SCH (05:47)
[2016-08-04] MEDS: CALAMINE/PRAMOXINE LOTION 180 ML BTL TOPICAL SCH ×2 (09:00→21:00)
[2016-08-04] MEDS: MUPIROCIN 2% CREAM 15 GM TOPICAL SCH ×2 (09:00→21:00)
[2016-08-04] MEDS: LACTOBACILLUS ACIDOPHILUS TAB PO SCH ×2 (09:00→22:27)
--- NOTE | 2016-08-04 10:05 | HHI.PR ---
Subjective Remarks The patient says she does not have much of an appetite. She says she is not drinking much liquid. She says her diarrhea comes and goes. She is breathing comfortably. She complains of a lot of pain in her left hip. Objective Vitals Vital Signs Date Time Temp Pulse Resp B/P Pulse Ox O2 Delivery O2 Flow Rate FiO2 08/04/16 01:08 16 08/03/16 21:45 96.4 73 18 118/59 95 08/03/16 17:30 96.1 72 18 113/73 95 08/03/16 14:00 96.0 84 18 121/73 94 I/O 08/03/16 08/03/16 08/03/16 08/04/16 08/04/16 08/04/16 07:00 15:00 23:00 07:00 15:00 23:00 Intake Total 480 ml 240 ml Balance 480 ml 240 ml Intake Oral 480 ml 240 ml # Voids 1 1 1 # Bowel Movements 1 1 Result Diagram: 07/31/16 1047 Imaging Last Impressions Hip MRI 07/05/16 0000 Signed Impressions: Service Date/Time: Tuesday, July 05, 2016 10:51 - CONCLUSION: 1. There is osteopenia primary degenerative changes at both hips, left greater than right. 2. Prominent osteophyte along the inferior articulating surface of the proximal left femur. 3. Nonspecific edema in the gluteus and hamstring muscles. 4. No acute bony fracture. Javier Fishman MD Lower Extremity Ultrasound 06/29/16 0000 Signed Impressions: Service Date/Time: Wednesday, June 29, 2016 10:07 - CONCLUSION: Negative for deep venous thrombosis. Alfredo Sanders MD FACR Cervical Spine MRI 06/27/16 0000 Signed Impressions: Service Date/Time: Monday, June 27, 2016 11:09 - CONCLUSION: Mild degenerative changes otherwise unremarkable cervical spine. Anselmo Leavitt MD Thoracic Spine MRI 06/25/16 0000 Signed Impressions: Service Date/Time: June 19:36 - CONCLUSION: 1. No fracture or subluxation of the thoracic spine. 2. Mild and fairly diffuse degenerative changes as above. 3. Mild left foraminal encroachment at T8/T9 and T9/T10. 4. No significant spinal stenosis at any level. 5. Incidentally seen tiny right and small left pleural effusions, nonspecific. Jeevan Arreola MD Lumbar Spine MRI 06/25/16 0000 Signed Impressions: Service Date/Time: June 19:36 - CONCLUSION: 1. Multilevel lumbar degenerative changes as detailed above. 2. Mild spinal stenosis at L3/L4 without evidence of transiting nerve root impingement. 3. Mild to moderate spinal stenosis at L4/L5 and possibly with mild mass effect/impingement on the transiting left L5 nerve root within the subarticular recess. 4. Mild bilateral foraminal encroachment L3/L4 and L4/L5. Mild to moderate bilateral foraminal encroachment at L5/S1. 5. No fracture or subluxation of the lumbar spine. Jeevan Arreola MD Hip and Pelvis X-Ray 06/25/16 0000 Signed Impressions: Service Date/Time: June 20:27 - CONCLUSION: Moderate to severe left hip' right is with considerable osteophytosis and an apparent large inferior joint body. No fracture or subluxation. Jeevan Arreola MD Chest X-Ray 06/23/16 1402 Signed Impressions: Service Date/Time: Thursday, June 23, 2016 14:13 - CONCLUSION: Normal examination. Elías Moreno MD Objective Remarks GENERAL: Well-developed. Morbidly obese. In no acute distress. SKIN: Warm and dry, pale. Improving erythema back areas. Erythema on sacral area but no ulcer. HEENT: Normocephalic. Pupils equal and round. Mucous membranes pink and moist. CARDIOVASCULAR: Regular rate and rhythm. No murmur RESPIRATORY: clear to auscultation, no wheezing or crackles. GASTROINTESTINAL: Abdomen soft, non-tender, nondistended. Bowel sounds x4. MUSCULOSKELETAL: No clubbing or cyanosis. Lower extremity edema noted. NEUROLOGICAL: Awake and alert. No focal neurological deficits. PSYCHIATRIC: Appropriate mood and affect; insight and judgment normal. Procedures none Medications and IVs Current Medications Medications (Trade) Dose Ordered Sig/Alhaji Route Start Time Stop Time Status Last Admin (NS Flush) 2 ml UNSCH PRN FLUSH 06/23/16 20:00 07/25/16 18:44 (NS Flush) 2 ml BID FLUSH 06/23/16 21:00 08/03/16 23:10 (Lovenox Inj) 40 mg Q24H SQ 06/24/16 09:00 08/03/16 10:39 (Narcan Inj) 0.4 mg UNSCH PRN IV 06/23/16 20:00 (Norvasc) 10 mg DAILY PO 06/24/16 10:00 08/03/16 10:40 (Ecotrin Ec) 81 mg DAILY PO 06/25/16 09:00 08/03/16 10:40 (Lasix) 20 mg DAILY PO 06/25/16 09:00 08/03/16 10:41 (Prinivil) 20 mg DAILY PO 06/24/16 10:00 08/03/16 10:41 (Zoloft) 200 mg HS PO 06/24/16 21:00 08/03/16 23:09 (Tylenol) 650 mg Q6H PRN PO 06/26/16 16:15 ([place] 5-325 Mg) 1 tab Q4H PRN PO 06/26/16 16:15 07/25/16 18:44 ([place] 7.5-325 Mg) 1 tab Q4H PRN PO 06/26/16 16:15 08/03/16 23:09 (Caladryl Lotion) 1 applic Q12HR TOPICAL 06/27/16 09:00 08/03/16 23:11 (ZyrTEC) 10 mg HS PO 06/29/16 21:00 08/03/16 23:08 (Lactinex) 1 tab Q12HR PO 07/04/16 21:00 08/03/16 23:09 (Zofran Inj) 4 mg Q6H PRN IV PUSH 07/07/16 13:45 08/03/16 23:10 (Atarax) 50 mg Q6H PRN PO 07/08/16 18:15 08/03/16 23:08 (Pepcid) 10 mg BID PO 07/09/16 21:00 Hold 07/23/16 08:56 (Pill Splitter) 1 ea UNSCH PRN OTHER 07/09/16 15:45 07/11/16 08:23 (Mycostatin Cream) 1 applic Q6HR TOPICAL 07/13/16 13:30 08/03/16 23:11 (Bactroban 2% Cream) 1 applic Q12HR TOPICAL 07/13/16 13:30 08/03/16 23:11 (VANCOMYCIN for oral use only) 250 mg QID PO 07/26/16 18:00 08/03/16 23:10 (Reglan) 10 mg ACHS PRN PO 07/26/16 16:30 07/31/16 22:02 Date of Insertion: Jun 23, 2016 A/P Problem List: (1) C. difficile diarrhea ICD Code: A04.7 Status: Acute (2) Total self-care deficit ICD Code: R41.89 Status: Acute (3) UTI (urinary tract infection) ICD Code: N39.0 Status: Resolved (4) Sacral pressure ulcer ICD Code: L89.159 Status: Chronic (5) Arthritis ICD Code: M19.90 Status: Chronic (6) Oral thrush ICD Code: B37.0 Status: Acute (7) Subclinical hypothyroidism ICD Code: E03.9 Status: Acute (8) Radiculopathy of lumbar region ICD Code: M54.16 Status: Acute (9) Antibiotic-induced allergic rash ICD Code: T36.91XA Status: Resolved (10) Cellulitis ICD Code: L03.90 Status: Resolved (11) Bilateral lower extremity edema ICD Code: R60.0 Status: Chronic (12) CKD (chronic kidney disease), stage III ICD Code: N18.3 Status: Acute Assessment and Plan C Difficile Diarrhea Improved Diarrhea, her Flagyl was discontinued but she had new C Diff test positive, started on Vancomycin 250 mg QID 07/26/16. - continue vancomycin. Total Self-care deficit - will need SNF at discharge. UTI UTI resolved. - Not on antibiotics at this time. Sacral Pressure Ulcer Wound care consulted. - Barrier cream recommended, turn every 2 hours. Subclinical Hypothyroidism - repeat function test in 4 to 6 weeks. Radiculopathy of Lumbar region Numbness on the left anterior area of the thigh. TL spine MRI showed mild spinal stenosis at L3-4, moderate to moderate spinal stenosis at L4-5 and possibly with mild mass effect/impingement transiting left L5 nerve root with subarticular recess. Neurosurgery was consulted, ordered C-spine MRI which showed mild degenerative changes. No intervention per NS. OA Left hip x-ray showed moderate to severe left hip osteoarthritis with considerable osteophytosis and apparent large inferior joint body. MRI of the left hip ruled out osteomyelitis. Mild findings for Myelopathy. - Continue pain control with oral [place], outpatient orthopedic follow-up is recommended. Bilateral Lower extremity Edema Chronic issue. Left worse than right. Bilateral Doppler ultrasound negative for DVT. - Continue MADIE hose and keep legs elevated. Electrolyte derangement Hypokalemia and Hypomagnesemia replaced. - continue to monitor. DVT prophylaxis : Lovenox subcutaneously. Discharge Planning Awaiting placement. Problem Qualifiers (1) Sacral pressure ulcer: Qualified Code: L89.151 - Decubitus ulcer of sacral region, stage 1 (2) Cellulitis: Qualified Code: L03.818 - Cellulitis of other specified site Abdiel Vance DO Aug 04, 2016 10:05
[2016-08-04 10:30] VITALS: BP 133/63; PULSE 69; RESP 18; TEMP 96.7; O2SAT 94
[2016-08-04] MEDS: ASPIRIN EC 81 MG TABEC PO SCH (10:45)
[2016-08-04] MEDS: FUROSEMIDE 20 MG TAB PO SCH (10:45)
[2016-08-04] MEDS: hydrOXYzine HCL 25 MG TAB PO PRN ×2 (10:45→19:00)
[2016-08-04] MEDS: ACETAMINOPHEN/HYDROcodone 325 MG/7.5 MG TAB PO PRN ×3 (10:45→22:35)
[2016-08-04] MEDS: LISINOPRIL 20 MG TAB PO SCH (10:46)
[2016-08-04] MEDS: ENOXAPARIN SODIUM 40 MG/0.4 ML SYRINGE SQ SCH (10:46)
[2016-08-04] MEDS: VANCOMYCIN 500 MG VIAL (FOR ORAL USE ONLY) PO SCH ×4 (10:46→22:27)
[2016-08-04] MEDS: SODIUM CHLORIDE 0.9% FLUSH 5 ML FLUSH FLUSH SCH ×2 (10:47→22:30)
[2016-08-04] MEDS: ONDANSETRON HCL 4 MG/2 ML VIAL IV PUSH PRN ×2 (10:47→18:59)
[2016-08-04 11:56] LABS: HEMATOCRIT 34.7 % (35.0-46.0); MEAN CELL VOLUME 86.5 FL (80.0-100.0); MEAN CORPUSCULAR HEMOGLOBIN 29.6 PG (27.0-34.0); MEAN CORPUSCULAR HGB CONC 34.2 % (32.0-36.0); PLATELET COUNT 260 TH/MM3 (150-450); RED BLOOD COUNT 4.01 MIL/MM3 (4.00-5.30); RED CELL DISTRIBUTION WIDTH 15.2 % (11.6-17.2); REVIEW FLAG FINAL; WHITE BLOOD COUNT 6.2 TH/MM3 (4.0-11.0)
[2016-08-04 12:38] LABS: BICARBONATE 30.1 MEQ/L (21.0-32.0); MAGNESIUM 1.9 MG/DL (1.5-2.5); POTASSIUM 3.4 MEQ/L (3.5-5.1)
[2016-08-04 18:30] VITALS: BP 121/62; PULSE 68; RESP 18; TEMP 96.7; O2SAT 95
[2016-08-04 20:00] VITALS: BP 141/66; PULSE 74; RESP 18; TEMP 96.6; O2SAT 93
[2016-08-04] MEDS: CETIRIZINE HCL 10 MG TAB PO SCH (22:27)
[2016-08-04] MEDS: SERTRALINE HCL 100 MG TAB PO SCH (22:27)
[2016-08-05] VITALS: BP 137/68; PULSE 84; RESP 16; TEMP 96.9; O2SAT 93
[2016-08-05] MEDS: ACETAMINOPHEN/HYDROcodone 325 MG/7.5 MG TAB PO PRN ×3 (03:01→15:19)
[2016-08-05] MEDS: hydrOXYzine HCL 25 MG TAB PO PRN ×3 (03:01→18:55)
[2016-08-05] MEDS: ONDANSETRON HCL 4 MG/2 ML VIAL IV PUSH PRN ×2 (03:01→18:55)
[2016-08-05 04:00] VITALS: BP 145/79; PULSE 75; RESP 17; TEMP 97; O2SAT 95
[2016-08-05 08:00] VITALS: BP 150/63; PULSE 72; RESP 18; TEMP 96.7; O2SAT 96
[2016-08-05] MEDS: CALAMINE/PRAMOXINE LOTION 180 ML BTL TOPICAL SCH ×2 (09:00→20:31)
[2016-08-05] MEDS: SODIUM CHLORIDE 0.9% FLUSH 5 ML FLUSH FLUSH SCH ×2 (09:00→21:01)
[2016-08-05] MEDS: MUPIROCIN 2% CREAM 15 GM TOPICAL SCH ×2 (09:00→20:32)
[2016-08-05] MEDS: VANCOMYCIN 500 MG VIAL (FOR ORAL USE ONLY) PO SCH ×4 (10:36→21:01)
[2016-08-05] MEDS: LACTOBACILLUS ACIDOPHILUS TAB PO SCH ×2 (10:38→21:01)
[2016-08-05] MEDS: ASPIRIN EC 81 MG TABEC PO SCH (10:38)
[2016-08-05] MEDS: FUROSEMIDE 20 MG TAB PO SCH (10:39)
[2016-08-05] MEDS: LISINOPRIL 20 MG TAB PO SCH (10:39)
[2016-08-05] MEDS: ENOXAPARIN SODIUM 40 MG/0.4 ML SYRINGE SQ SCH (10:40)
[2016-08-05 12:00] VITALS: BP 145/70; PULSE 73; RESP 18; TEMP 96.2; O2SAT 95
[2016-08-05] MEDS ORDERED: POTASSIUM CHLORIDE 20 MEQ CONTROLLED RELEASE TAB PO ONE (14:30)
--- NOTE | 2016-08-05 16:10 | HHI.PR ---
Subjective Remarks The patient was saying her pain in her left lower extremity would interfere with her physical therapy sessions. The patient had no other acute complaints. Family at the bedside. Objective Vitals Vital Signs Date Time Temp Pulse Resp B/P Pulse Ox O2 Delivery O2 Flow Rate FiO2 08/05/16 12:00 96.2 73 18 145/70 95 08/05/16 08:00 96.7 72 18 150/63 96 08/05/16 04:00 97.0 75 17 145/79 95 08/05/16 00:00 96.9 84 16 137/68 93 08/04/16 20:00 96.6 74 18 141/66 93 08/04/16 18:30 96.7 68 18 121/62 95 I/O 08/04/16 08/04/16 08/04/16 08/05/16 08/05/16 08/05/16 07:00 15:00 23:00 07:00 15:00 23:00 Intake Total 360 ml 240 ml 250 ml Balance 360 ml 240 ml 250 ml Intake Oral 360 ml 240 ml 250 ml # Voids 1 2 1 # Bowel Movements 1 1 Result Diagram: 08/04/16 1139 08/04/16 1139 Imaging Last Impressions Hip MRI 07/05/16 0000 Signed Impressions: Service Date/Time: Tuesday, July 05, 2016 10:51 - CONCLUSION: 1. There is osteopenia primary degenerative changes at both hips, left greater than right. 2. Prominent osteophyte along the inferior articulating surface of the proximal left femur. 3. Nonspecific edema in the gluteus and hamstring muscles. 4. No acute bony fracture. Javier Fishman MD Lower Extremity Ultrasound 06/29/16 0000 Signed Impressions: Service Date/Time: Wednesday, June 29, 2016 10:07 - CONCLUSION: Negative for deep venous thrombosis. Alfredo Sanders MD FACR Cervical Spine MRI 06/27/16 0000 Signed Impressions: Service Date/Time: Monday, June 27, 2016 11:09 - CONCLUSION: Mild degenerative changes otherwise unremarkable cervical spine. Anselmo Leavitt MD Thoracic Spine MRI 06/25/16 0000 Signed Impressions: Service Date/Time: June 19:36 - CONCLUSION: 1. No fracture or subluxation of the thoracic spine. 2. Mild and fairly diffuse degenerative changes as above. 3. Mild left foraminal encroachment at T8/T9 and T9/T10. 4. No significant spinal stenosis at any level. 5. Incidentally seen tiny right and small left pleural effusions, nonspecific. Jeevan Arreola MD Lumbar Spine MRI 06/25/16 0000 Signed Impressions: Service Date/Time: June 19:36 - CONCLUSION: 1. Multilevel lumbar degenerative changes as detailed above. 2. Mild spinal stenosis at L3/L4 without evidence of transiting nerve root impingement. 3. Mild to moderate spinal stenosis at L4/L5 and possibly with mild mass effect/impingement on the transiting left L5 nerve root within the subarticular recess. 4. Mild bilateral foraminal encroachment L3/L4 and L4/L5. Mild to moderate bilateral foraminal encroachment at L5/S1. 5. No fracture or subluxation of the lumbar spine. Jeevan Arreola MD Hip and Pelvis X-Ray 06/25/16 0000 Signed Impressions: Service Date/Time: June 20:27 - CONCLUSION: Moderate to severe left hip' right is with considerable osteophytosis and an apparent large inferior joint body. No fracture or subluxation. Jeevan Arreola MD Chest X-Ray 06/23/16 1402 Signed Impressions: Service Date/Time: Thursday, June 23, 2016 14:13 - CONCLUSION: Normal examination. Elías Moreno MD Objective Remarks GENERAL: Well-developed. Morbidly obese. In no acute distress. SKIN: Warm and dry, pale. Improving erythema back areas. Erythema on sacral area but no ulcer. HEENT: Normocephalic. Pupils equal and round. Mucous membranes pink and moist. CARDIOVASCULAR: Regular rate and rhythm. No murmur RESPIRATORY: clear to auscultation, no wheezing or crackles. GASTROINTESTINAL: Abdomen soft, non-tender, nondistended. Bowel sounds x4. MUSCULOSKELETAL: No clubbing or cyanosis. Lower extremity edema noted. NEUROLOGICAL: Awake and alert. No focal neurological deficits. PSYCHIATRIC: Appropriate mood and affect; insight and judgment normal. Procedures none Medications and IVs Current Medications Medications (Trade) Dose Ordered Sig/Alhaji Route Start Time Stop Time Status Last Admin (NS Flush) 2 ml UNSCH PRN FLUSH 06/23/16 20:00 07/25/16 18:44 (NS Flush) 2 ml BID FLUSH 06/23/16 21:00 08/05/16 09:00 (Lovenox Inj) 40 mg Q24H SQ 06/24/16 09:00 08/05/16 10:40 (Narcan Inj) 0.4 mg UNSCH PRN IV 06/23/16 20:00 (Norvasc) 10 mg DAILY PO 06/24/16 10:00 08/05/16 10:38 (Ecotrin Ec) 81 mg DAILY PO 06/25/16 09:00 08/05/16 10:38 (Lasix) 20 mg DAILY PO 06/25/16 09:00 08/05/16 10:39 (Prinivil) 20 mg DAILY PO 06/24/16 10:00 08/05/16 10:39 (Zoloft) 200 mg HS PO 06/24/16 21:00 08/04/16 22:27 (Tylenol) 650 mg Q6H PRN PO 06/26/16 16:15 ([place] 5-325 Mg) 1 tab Q4H PRN PO 06/26/16 16:15 07/25/16 18:44 ([place] 7.5-325 Mg) 1 tab Q4H PRN PO 06/26/16 16:15 08/05/16 15:19 (Caladryl Lotion) 1 applic Q12HR TOPICAL 06/27/16 09:00 08/03/16 23:11 (ZyrTEC) 10 mg HS PO 06/29/16 21:00 08/04/16 22:27 (Lactinex) 1 tab Q12HR PO 07/04/16 21:00 08/05/16 10:38 (Zofran Inj) 4 mg Q6H PRN IV PUSH 07/07/16 13:45 08/05/16 03:01 (Atarax) 50 mg Q6H PRN PO 07/08/16 18:15 08/05/16 10:39 (Pepcid) 10 mg BID PO 07/09/16 21:00 Hold 07/23/16 08:56 (Pill Splitter) 1 ea UNSCH PRN OTHER 07/09/16 15:45 07/11/16 08:23 (Bactroban 2% Cream) 1 applic Q12HR TOPICAL 07/13/16 13:30 08/03/16 23:11 (VANCOMYCIN for oral use only) 250 mg QID PO 07/26/16 18:00 08/05/16 15:04 (Reglan) 10 mg ACHS PRN PO 07/26/16 16:30 07/31/16 22:02 Date of Insertion: Jun 23, 2016 A/P Problem List: (1) C. difficile diarrhea ICD Code: A04.7 Status: Acute (2) Total self-care deficit ICD Code: R41.89 Status: Acute (3) UTI (urinary tract infection) ICD Code: N39.0 Status: Resolved (4) Sacral pressure ulcer ICD Code: L89.159 Status: Chronic (5) Arthritis ICD Code: M19.90 Status: Chronic (6) Oral thrush ICD Code: B37.0 Status: Acute (7) Subclinical hypothyroidism ICD Code: E03.9 Status: Acute (8) Radiculopathy of lumbar region ICD Code: M54.16 Status: Acute (9) Antibiotic-induced allergic rash ICD Code: T36.91XA Status: Resolved (10) Cellulitis ICD Code: L03.90 Status: Resolved (11) Bilateral lower extremity edema ICD Code: R60.0 Status: Chronic (12) CKD (chronic kidney disease), stage III ICD Code: N18.3 Status: Acute Assessment and Plan C Difficile Diarrhea Improved Diarrhea, her Flagyl was discontinued but she had new C Diff test positive, started on Vancomycin 250 mg QID 07/26/16. Diarrhea is improving. - continue vancomycin. Generalized weakness The patient has been having hard time working with physical therapy secondary to pain. - Pain control. - Rehabilitation efforts. UTI UTI resolved. - Not on antibiotics at this time. Sacral Pressure Ulcer Wound care consulted. - Barrier cream recommended, turn every 2 hours. Subclinical hypothyroidism The patient had abnormal thyroid function studies. - repeat function test in 4 to 6 weeks. Radiculopathy of Lumbar region Numbness on the left anterior area of the thigh. TL spine MRI showed mild spinal stenosis at L3-4, moderate to moderate spinal stenosis at L4-5 and possibly with mild mass effect/impingement transiting left L5 nerve root with subarticular recess. Neurosurgery was consulted, ordered C-spine MRI which showed mild degenerative changes. - No intervention per NS. OA Left hip x-ray showed moderate to severe left hip osteoarthritis with considerable osteophytosis and apparent large inferior joint body. MRI of the left hip ruled out osteomyelitis. Mild findings for Myelopathy. - Continue pain control, outpatient orthopedic follow-up is recommended. Bilateral Lower extremity Edema Chronic issue. Left worse than right. Bilateral Doppler ultrasound negative for DVT. - Continue MADIE hose and keep legs elevated. Electrolyte derangement Hypokalemia and Hypomagnesemia replaced. - continue to monitor. DVT prophylaxis : Lovenox subcutaneously. Discharge Planning Awaiting placement. Problem Qualifiers (1) Sacral pressure ulcer: Qualified Code: L89.151 - Decubitus ulcer of sacral region, stage 1 (2) Cellulitis: Qualified Code: L03.818 - Cellulitis of other specified site Abdiel Vance DO Aug 05, 2016 16:10
[2016-08-05] MEDS ORDERED: MORPHINE SULFATE 4 MG/ML INJ IV PUSH PRN (16:15)
[2016-08-05 18:30] VITALS: BP 121/64; PULSE 76; RESP 18; TEMP 96.6; O2SAT 95
[2016-08-05 20:00] VITALS: BP 151/70; PULSE 75; RESP 17; TEMP 96.1; O2SAT 96
[2016-08-05] MEDS: CETIRIZINE HCL 10 MG TAB PO SCH (21:00)
[2016-08-05] MEDS: ACETAMINOPHEN/HYDROcodone 325 MG/10 MG TAB PO PRN (21:00)
[2016-08-05] MEDS: SERTRALINE HCL 100 MG TAB PO SCH (21:01)
[2016-08-06] VITALS: BP 119/57; PULSE 68; RESP 18; TEMP 96.8; O2SAT 96
[2016-08-06] MEDS: ACETAMINOPHEN/HYDROcodone 325 MG/10 MG TAB PO PRN ×5 (00:18→21:15)
[2016-08-06] MEDS: hydrOXYzine HCL 25 MG TAB PO PRN ×4 (00:18→21:15)
[2016-08-06 04:00] VITALS: BP 137/64; PULSE 69; RESP 18; TEMP 96.8; O2SAT 97
[2016-08-06 08:22] LABS: BICARBONATE 30.8 MEQ/L (21.0-32.0); MAGNESIUM 1.8 MG/DL (1.5-2.5); POTASSIUM 3.9 MEQ/L (3.5-5.1)
[2016-08-06 08:26] VITALS: BP 123/57; PULSE 67; RESP 16; TEMP 97.2; O2SAT 95
[2016-08-06 08:28] LABS: HEMATOCRIT 31.7 % (35.0-46.0); MEAN CELL VOLUME 92.3 FL (80.0-100.0); MEAN CORPUSCULAR HGB CONC 34.7 % (32.0-36.0); PLATELET COUNT 229 TH/MM3 (150-450); RED BLOOD COUNT 3.43 MIL/MM3 (4.00-5.30); RED CELL DISTRIBUTION WIDTH 16.1 % (11.6-17.2); REVIEW FLAG FINAL
[2016-08-06] MEDS: CALAMINE/PRAMOXINE LOTION 180 ML BTL TOPICAL SCH ×2 (09:00→21:00)
[2016-08-06] MEDS: MUPIROCIN 2% CREAM 15 GM TOPICAL SCH ×2 (09:00→21:00)
[2016-08-06] MEDS: SODIUM CHLORIDE 0.9% FLUSH 5 ML FLUSH FLUSH SCH ×2 (09:00→21:16)
[2016-08-06] MEDS: LISINOPRIL 20 MG TAB PO SCH (09:57)
[2016-08-06] MEDS: FUROSEMIDE 20 MG TAB PO SCH (09:57)
[2016-08-06] MEDS: LACTOBACILLUS ACIDOPHILUS TAB PO SCH ×2 (09:57→21:15)
[2016-08-06] MEDS: VANCOMYCIN 500 MG VIAL (FOR ORAL USE ONLY) PO SCH ×4 (09:57→21:16)
[2016-08-06] MEDS: ENOXAPARIN SODIUM 40 MG/0.4 ML SYRINGE SQ SCH (09:58)
[2016-08-06] MEDS: ASPIRIN EC 81 MG TABEC PO SCH (10:01)
[2016-08-06] MEDS: ONDANSETRON HCL 4 MG/2 ML VIAL IV PUSH PRN (10:01)
[2016-08-06 12:33] VITALS: BP 126/66; PULSE 77; RESP 16; TEMP 97.6; O2SAT 97
--- NOTE | 2016-08-06 15:53 | HHI.PR ---
Subjective Remarks The patient's son was at the bedside. He was concerned that his mother was taking too many pain pills. The patient says that the pain pills are working very well at this time. She says her knees have been hurting her quite a bit. No other acute complaints. Objective Vitals Vital Signs Date Time Temp Pulse Resp B/P Pulse Ox O2 Delivery O2 Flow Rate FiO2 08/06/16 12:33 97.6 77 16 126/66 97 08/06/16 08:26 97.2 67 16 123/57 95 08/06/16 04:00 96.8 69 18 137/64 97 08/06/16 00:00 96.8 68 18 119/57 96 08/05/16 20:00 96.1 75 17 151/70 96 08/05/16 18:30 96.6 76 18 121/64 95 I/O 08/05/16 08/05/16 08/05/16 08/06/16 08/06/16 08/06/16 07:00 15:00 23:00 07:00 15:00 23:00 Intake Total 480 ml 250 ml 240 ml Balance 480 ml 250 ml 240 ml Intake Oral 480 ml 250 ml 240 ml # Voids 1 1 2 1 # Bowel Movements 1 Result Diagram: 08/06/16 0652 08/06/16 0652 Imaging Last Impressions Hip MRI 07/05/16 0000 Signed Impressions: Service Date/Time: Tuesday, July 05, 2016 10:51 - CONCLUSION: 1. There is osteopenia primary degenerative changes at both hips, left greater than right. 2. Prominent osteophyte along the inferior articulating surface of the proximal left femur. 3. Nonspecific edema in the gluteus and hamstring muscles. 4. No acute bony fracture. Javier Fishman MD Lower Extremity Ultrasound 06/29/16 0000 Signed Impressions: Service Date/Time: Wednesday, June 29, 2016 10:07 - CONCLUSION: Negative for deep venous thrombosis. Alfredo Sanders MD FACR Cervical Spine MRI 06/27/16 0000 Signed Impressions: Service Date/Time: Monday, June 27, 2016 11:09 - CONCLUSION: Mild degenerative changes otherwise unremarkable cervical spine. Anselmo Leavitt MD Thoracic Spine MRI 06/25/16 0000 Signed Impressions: Service Date/Time: June 19:36 - CONCLUSION: 1. No fracture or subluxation of the thoracic spine. 2. Mild and fairly diffuse degenerative changes as above. 3. Mild left foraminal encroachment at T8/T9 and T9/T10. 4. No significant spinal stenosis at any level. 5. Incidentally seen tiny right and small left pleural effusions, nonspecific. Jeevan Arreola MD Lumbar Spine MRI 06/25/16 0000 Signed Impressions: Service Date/Time: June 19:36 - CONCLUSION: 1. Multilevel lumbar degenerative changes as detailed above. 2. Mild spinal stenosis at L3/L4 without evidence of transiting nerve root impingement. 3. Mild to moderate spinal stenosis at L4/L5 and possibly with mild mass effect/impingement on the transiting left L5 nerve root within the subarticular recess. 4. Mild bilateral foraminal encroachment L3/L4 and L4/L5. Mild to moderate bilateral foraminal encroachment at L5/S1. 5. No fracture or subluxation of the lumbar spine. Jeevan Arreola MD Hip and Pelvis X-Ray 06/25/16 0000 Signed Impressions: Service Date/Time: June 20:27 - CONCLUSION: Moderate to severe left hip' right is with considerable osteophytosis and an apparent large inferior joint body. No fracture or subluxation. Jeevan Arreola MD Chest X-Ray 06/23/16 1402 Signed Impressions: Service Date/Time: Thursday, June 23, 2016 14:13 - CONCLUSION: Normal examination. Elías Moreno MD Objective Remarks GENERAL: Well-developed. Morbidly obese. In no acute distress. SKIN: Warm and dry, pale. Improving erythema back areas. Erythema on sacral area but no ulcer. HEENT: Normocephalic. Pupils equal and round. Mucous membranes pink and moist. CARDIOVASCULAR: Regular rate and rhythm. No murmur RESPIRATORY: clear to auscultation, no wheezing or crackles. GASTROINTESTINAL: Abdomen soft, non-tender, nondistended. Bowel sounds x4. MUSCULOSKELETAL: No clubbing or cyanosis. Lower extremity edema noted. Tenderness to palpation of legs. NEUROLOGICAL: Awake and alert. No focal neurological deficits. PSYCHIATRIC: Appropriate mood and affect; insight and judgment normal. Procedures none Medications and IVs Current Medications Medications (Trade) Dose Ordered Sig/Alhaji Route Start Time Stop Time Status Last Admin (NS Flush) 2 ml UNSCH PRN FLUSH 06/23/16 20:00 07/25/16 18:44 (NS Flush) 2 ml BID FLUSH 06/23/16 21:00 08/06/16 09:00 (Lovenox Inj) 40 mg Q24H SQ 06/24/16 09:00 08/06/16 09:58 (Narcan Inj) 0.4 mg UNSCH PRN IV 06/23/16 20:00 (Norvasc) 10 mg DAILY PO 06/24/16 10:00 08/06/16 09:57 (Ecotrin Ec) 81 mg DAILY PO 06/25/16 09:00 08/06/16 10:01 (Lasix) 20 mg DAILY PO 06/25/16 09:00 08/06/16 09:57 (Prinivil) 20 mg DAILY PO 06/24/16 10:00 08/06/16 09:57 (Zoloft) 200 mg HS PO 06/24/16 21:00 08/05/16 21:01 (Tylenol) 650 mg Q6H PRN PO 06/26/16 16:15 ([place] 5-325 Mg) 1 tab Q4H PRN PO 06/26/16 16:15 07/25/16 18:44 (Caladryl Lotion) 1 applic Q12HR TOPICAL 06/27/16 09:00 08/03/16 23:11 (ZyrTEC) 10 mg HS PO 06/29/16 21:00 08/05/16 21:00 (Lactinex) 1 tab Q12HR PO 07/04/16 21:00 08/06/16 09:57 (Zofran Inj) 4 mg Q6H PRN IV PUSH 07/07/16 13:45 08/06/16 10:01 (Atarax) 50 mg Q6H PRN PO 07/08/16 18:15 08/06/16 13:38 (Pepcid) 10 mg BID PO 07/09/16 21:00 Hold 07/23/16 08:56 (Pill Splitter) 1 ea UNSCH PRN OTHER 07/09/16 15:45 07/11/16 08:23 (Bactroban 2% Cream) 1 applic Q12HR TOPICAL 07/13/16 13:30 08/03/16 23:11 (VANCOMYCIN for oral use only) 250 mg QID PO 07/26/16 18:00 08/06/16 13:38 (Reglan) 10 mg ACHS PRN PO 07/26/16 16:30 07/31/16 22:02 ([place] 10-325 Mg) 1 tab Q4H PRN PO 08/05/16 16:15 08/06/16 13:38 (Morphine Inj) 2 mg Q3H PRN IV PUSH 08/05/16 16:15 Date of Insertion: Jun 23, 2016 A/P Problem List: (1) C. difficile diarrhea ICD Code: A04.7 Status: Acute (2) Total self-care deficit ICD Code: R41.89 Status: Acute (3) UTI (urinary tract infection) ICD Code: N39.0 Status: Resolved (4) Sacral pressure ulcer ICD Code: L89.159 Status: Chronic (5) Arthritis ICD Code: M19.90 Status: Chronic (6) Oral thrush ICD Code: B37.0 Status: Acute (7) Subclinical hypothyroidism ICD Code: E03.9 Status: Acute (8) Radiculopathy of lumbar region ICD Code: M54.16 Status: Acute (9) Antibiotic-induced allergic rash ICD Code: T36.91XA Status: Resolved (10) Cellulitis ICD Code: L03.90 Status: Resolved (11) Bilateral lower extremity edema ICD Code: R60.0 Status: Chronic (12) CKD (chronic kidney disease), stage III ICD Code: N18.3 Status: Acute Assessment and Plan C Difficile Diarrhea Improved Diarrhea, her Flagyl was discontinued but she had new C Diff test positive, started on Vancomycin 250 mg QID 07/26/16. Diarrhea is improving. - continue vancomycin. - repeat C diff PCR 08/06. Generalized weakness The patient has been having hard time working with physical therapy secondary to pain. - Pain control. Add standing Toradol. - Rehabilitation efforts. UTI UTI resolved. - Not on antibiotics at this time. Sacral Pressure Ulcer Wound care consulted. - Barrier cream recommended, turn every 2 hours. Subclinical hypothyroidism The patient had abnormal thyroid function studies. - repeat function test in 4 to 6 weeks. Radiculopathy of Lumbar region Numbness on the left anterior area of the thigh. TL spine MRI showed mild spinal stenosis at L3-4, moderate to moderate spinal stenosis at L4-5 and possibly with mild mass effect/impingement transiting left L5 nerve root with subarticular recess. Neurosurgery was consulted, ordered C-spine MRI which showed mild degenerative changes. - No intervention per NS. OA Left hip x-ray showed moderate to severe left hip osteoarthritis with considerable osteophytosis and apparent large inferior joint body. MRI of the left hip ruled out osteomyelitis. Mild findings for Myelopathy. - Continue pain control, outpatient orthopedic follow-up is recommended. Toradol added 08/06. Hypoglycemia Likely s/t decreased PO intake. - Ensure added. - check fingersticks BID. Bilateral Lower extremity Edema Chronic issue. Left worse than right. Bilateral Doppler ultrasound negative for DVT. - Continue MADIE hose and keep legs elevated. Electrolyte derangement Hypokalemia and Hypomagnesemia replaced. - continue to monitor. DVT prophylaxis : Lovenox subcutaneously. Discharge Planning Awaiting placement. Problem Qualifiers (1) Sacral pressure ulcer: Qualified Code: L89.151 - Decubitus ulcer of sacral region, stage 1 (2) Cellulitis: Qualified Code: L03.818 - Cellulitis of other specified site Abdiel Vance DO Aug 06, 2016 15:53
[2016-08-06 16:00] VITALS: BP 127/60; PULSE 70; RESP 16; TEMP 96.3; O2SAT 94
[2016-08-06] MEDS: KETOROLAC TROMETHAMINE 30 MG/ML (IVP) VIAL IV PUSH SCH (17:32)
[2016-08-06] MEDS: CETIRIZINE HCL 10 MG TAB PO SCH (21:15)
[2016-08-06] MEDS: SERTRALINE HCL 100 MG TAB PO SCH (21:16)
[2016-08-07] VITALS: BP 118/56; PULSE 75; RESP 18; TEMP 97.3; O2SAT 94
[2016-08-07 04:00] VITALS: BP 140/63; PULSE 54; RESP 18; TEMP 97.3; O2SAT 94
[2016-08-07] MEDS: hydrOXYzine HCL 25 MG TAB PO PRN ×2 (06:10→20:53)
[2016-08-07] MEDS: ACETAMINOPHEN/HYDROcodone 325 MG/10 MG TAB PO PRN ×2 (06:10→09:45)
[2016-08-07] MEDS: KETOROLAC TROMETHAMINE 30 MG/ML (IVP) VIAL IV PUSH SCH ×5 (06:10→23:39)
[2016-08-07 08:00] VITALS: BP 128/63; PULSE 75; RESP 16; TEMP 97.7; O2SAT 95
[2016-08-07] MEDS: MUPIROCIN 2% CREAM 15 GM TOPICAL SCH ×2 (09:00→21:00)
[2016-08-07] MEDS: CALAMINE/PRAMOXINE LOTION 180 ML BTL TOPICAL SCH ×2 (09:00→21:00)
[2016-08-07] MEDS: SODIUM CHLORIDE 0.9% FLUSH 5 ML FLUSH FLUSH SCH ×2 (09:00→20:57)
[2016-08-07] MEDS: FUROSEMIDE 20 MG TAB PO SCH (09:44)
[2016-08-07] MEDS: VANCOMYCIN 500 MG VIAL (FOR ORAL USE ONLY) PO SCH ×4 (09:44→20:53)
[2016-08-07] MEDS: LISINOPRIL 20 MG TAB PO SCH (09:44)
[2016-08-07] MEDS: LACTOBACILLUS ACIDOPHILUS TAB PO SCH ×2 (09:44→20:53)
[2016-08-07] MEDS: ASPIRIN EC 81 MG TABEC PO SCH (09:44)
[2016-08-07] MEDS: ENOXAPARIN SODIUM 40 MG/0.4 ML SYRINGE SQ SCH (09:45)
[2016-08-07 12:00] VITALS: BP 116/61; PULSE 75; RESP 16; TEMP 98.1; O2SAT 96
--- NOTE | 2016-08-07 14:19 | HHI.PR ---
Subjective Remarks The patient complained of pain in her hips. She said she was feeling poorly. She said she always is nauseous with meals and it has been this way for months. Discussed with nursing. There is concern that the patient has been taking too much pain medication and is loopy at times. Objective Vitals Vital Signs Date Time Temp Pulse Resp B/P Pulse Ox O2 Delivery O2 Flow Rate FiO2 08/07/16 12:00 98.1 75 16 116/61 96 08/07/16 08:00 97.7 75 16 128/63 95 08/07/16 04:00 97.3 54 18 140/63 94 08/07/16 00:00 97.3 75 18 118/56 94 08/06/16 16:00 96.3 70 16 127/60 94 I/O 08/06/16 08/06/16 08/06/16 08/07/16 08/07/16 08/07/16 07:00 15:00 23:00 07:00 15:00 23:00 Intake Total 240 ml 480 ml 480 ml Balance 240 ml 480 ml 480 ml Intake Oral 240 ml 480 ml 480 ml # Voids 1 2 Result Diagram: 08/06/16 0652 08/06/16 0652 Imaging Last Impressions Hip MRI 07/05/16 0000 Signed Impressions: Service Date/Time: Tuesday, July 05, 2016 10:51 - CONCLUSION: 1. There is osteopenia primary degenerative changes at both hips, left greater than right. 2. Prominent osteophyte along the inferior articulating surface of the proximal left femur. 3. Nonspecific edema in the gluteus and hamstring muscles. 4. No acute bony fracture. Javier Fishman MD Lower Extremity Ultrasound 06/29/16 0000 Signed Impressions: Service Date/Time: Wednesday, June 29, 2016 10:07 - CONCLUSION: Negative for deep venous thrombosis. Alfredo Sanders MD FACR Cervical Spine MRI 06/27/16 0000 Signed Impressions: Service Date/Time: Monday, June 27, 2016 11:09 - CONCLUSION: Mild degenerative changes otherwise unremarkable cervical spine. Anselmo Leavitt MD Thoracic Spine MRI 06/25/16 0000 Signed Impressions: Service Date/Time: June 19:36 - CONCLUSION: 1. No fracture or subluxation of the thoracic spine. 2. Mild and fairly diffuse degenerative changes as above. 3. Mild left foraminal encroachment at T8/T9 and T9/T10. 4. No significant spinal stenosis at any level. 5. Incidentally seen tiny right and small left pleural effusions, nonspecific. Jeevan Arreola MD Lumbar Spine MRI 06/25/16 0000 Signed Impressions: Service Date/Time: June 19:36 - CONCLUSION: 1. Multilevel lumbar degenerative changes as detailed above. 2. Mild spinal stenosis at L3/L4 without evidence of transiting nerve root impingement. 3. Mild to moderate spinal stenosis at L4/L5 and possibly with mild mass effect/impingement on the transiting left L5 nerve root within the subarticular recess. 4. Mild bilateral foraminal encroachment L3/L4 and L4/L5. Mild to moderate bilateral foraminal encroachment at L5/S1. 5. No fracture or subluxation of the lumbar spine. Jeevan Arreola MD Hip and Pelvis X-Ray 06/25/16 0000 Signed Impressions: Service Date/Time: June 20:27 - CONCLUSION: Moderate to severe left hip' right is with considerable osteophytosis and an apparent large inferior joint body. No fracture or subluxation. Jeevan Arreola MD Chest X-Ray 06/23/16 1402 Signed Impressions: Service Date/Time: Thursday, June 23, 2016 14:13 - CONCLUSION: Normal examination. Elías Moreno MD Objective Remarks GENERAL: Well-developed. Morbidly obese. In no acute distress. SKIN: Warm and dry, pale. Improving erythema back areas. Erythema on sacral area but no ulcer. HEENT: Normocephalic. Pupils equal and round. Mucous membranes pink and moist. CARDIOVASCULAR: Regular rate and rhythm. No murmur RESPIRATORY: Clear to auscultation, no wheezing or crackles. GASTROINTESTINAL: Abdomen soft, non-tender, nondistended. Bowel sounds x4. MUSCULOSKELETAL: No clubbing or cyanosis. Lower extremity edema noted. Tenderness to palpation of legs. NEUROLOGICAL: Awake and alert. No focal neurological deficits. PSYCHIATRIC: Appropriate mood and affect; insight and judgment normal. Procedures none Medications and IVs Current Medications Medications (Trade) Dose Ordered Sig/Alhaji Route Start Time Stop Time Status Last Admin (NS Flush) 2 ml UNSCH PRN FLUSH 06/23/16 20:00 07/25/16 18:44 (NS Flush) 2 ml BID FLUSH 06/23/16 21:00 08/07/16 09:00 (Lovenox Inj) 40 mg Q24H SQ 06/24/16 09:00 08/07/16 09:45 (Narcan Inj) 0.4 mg UNSCH PRN IV 06/23/16 20:00 (Norvasc) 10 mg DAILY PO 06/24/16 10:00 08/07/16 09:44 (Ecotrin Ec) 81 mg DAILY PO 06/25/16 09:00 08/07/16 09:44 (Lasix) 20 mg DAILY PO 06/25/16 09:00 08/07/16 09:44 (Prinivil) 20 mg DAILY PO 06/24/16 10:00 08/07/16 09:44 (Zoloft) 200 mg HS PO 06/24/16 21:00 08/06/16 21:16 (Tylenol) 650 mg Q6H PRN PO 06/26/16 16:15 ([place] 5-325 Mg) 1 tab Q4H PRN PO 06/26/16 16:15 07/25/16 18:44 (Caladryl Lotion) 1 applic Q12HR TOPICAL 06/27/16 09:00 08/03/16 23:11 (ZyrTEC) 10 mg HS PO 06/29/16 21:00 08/06/16 21:15 (Lactinex) 1 tab Q12HR PO 07/04/16 21:00 08/07/16 09:44 (Zofran Inj) 4 mg Q6H PRN IV PUSH 07/07/16 13:45 08/06/16 10:01 (Atarax) 50 mg Q6H PRN PO 07/08/16 18:15 08/07/16 06:10 (Pepcid) 10 mg BID PO 07/09/16 21:00 Hold 07/23/16 08:56 (Pill Splitter) 1 ea UNSCH PRN OTHER 07/09/16 15:45 07/11/16 08:23 (Bactroban 2% Cream) 1 applic Q12HR TOPICAL 07/13/16 13:30 08/03/16 23:11 (VANCOMYCIN for oral use only) 250 mg QID PO 07/26/16 18:00 08/07/16 12:49 (Reglan) 10 mg ACHS PRN PO 07/26/16 16:30 07/31/16 22:02 ([place] 10-325 Mg) 1 tab Q4H PRN PO 08/05/16 16:15 08/07/16 09:45 (Toradol Inj) 15 mg Q6HR IV PUSH 08/06/16 18:00 08/09/16 00:01 08/07/16 12:48 Date of Insertion: Jun 23, 2016 A/P Problem List: (1) C. difficile diarrhea ICD Code: A04.7 Status: Acute (2) Total self-care deficit ICD Code: R41.89 Status: Acute (3) UTI (urinary tract infection) ICD Code: N39.0 Status: Resolved (4) Sacral pressure ulcer ICD Code: L89.159 Status: Chronic (5) Arthritis ICD Code: M19.90 Status: Chronic (6) Oral thrush ICD Code: B37.0 Status: Acute (7) Subclinical hypothyroidism ICD Code: E03.9 Status: Acute (8) Radiculopathy of lumbar region ICD Code: M54.16 Status: Acute (9) Antibiotic-induced allergic rash ICD Code: T36.91XA Status: Resolved (10) Cellulitis ICD Code: L03.90 Status: Resolved (11) Bilateral lower extremity edema ICD Code: R60.0 Status: Chronic (12) CKD (chronic kidney disease), stage III ICD Code: N18.3 Status: Acute Assessment and Plan C Difficile Diarrhea Improved Diarrhea, her Flagyl was discontinued but she had new C Diff test positive, started on Vancomycin 250 mg QID 07/26/16. Diarrhea is improving. - continue vancomycin. - repeat C diff PCR 08/06. Pt still has not had a bowel movement. Generalized weakness The patient has been having hard time working with physical therapy secondary to pain. - Pain control. Add standing Toradol. Decrease [place]. - Rehabilitation efforts. UTI UTI resolved. - Not on antibiotics at this time. Sacral Pressure Ulcer Wound care consulted. - Barrier cream recommended, turn every 2 hours. Subclinical hypothyroidism The patient had abnormal thyroid function studies. - repeat function test in 4 to 6 weeks. Radiculopathy of Lumbar region Numbness on the left anterior area of the thigh. TL spine MRI showed mild spinal stenosis at L3-4, moderate to moderate spinal stenosis at L4-5 and possibly with mild mass effect/impingement transiting left L5 nerve root with subarticular recess. Neurosurgery was consulted, ordered C-spine MRI which showed mild degenerative changes. - No intervention per NS. OA Left hip x-ray showed moderate to severe left hip osteoarthritis with considerable osteophytosis and apparent large inferior joint body. MRI of the left hip ruled out osteomyelitis. Mild findings for Myelopathy. - Continue pain control, outpatient orthopedic follow-up is recommended. Toradol added 08/06. Decrease [place]. Hypoglycemia/ Nausea. The pt has chronic nausea. - Ensure added. Change diet to clears for now. - Reglan IV with meals. - charging manipulator consult. - check fingersticks BID. Bilateral Lower extremity Edema Chronic issue. Left worse than right. Bilateral Doppler ultrasound negative for DVT. - Continue MADIE hose and keep legs elevated. Electrolyte derangement Hypokalemia and Hypomagnesemia replaced. - continue to monitor. DVT prophylaxis : Lovenox subcutaneously. Discharge Planning Awaiting placement. Problem Qualifiers (1) Sacral pressure ulcer: Qualified Code: L89.151 - Decubitus ulcer of sacral region, stage 1 (2) Cellulitis: Qualified Code: L03.818 - Cellulitis of other specified site Abdiel Vance DO Aug 07, 2016 14:19
[2016-08-07 16:00] VITALS: BP 118/60; PULSE 77; RESP 16; TEMP 97.5; O2SAT 93
[2016-08-07] MEDS: ONDANSETRON HCL 4 MG/2 ML VIAL IV PUSH PRN (17:17)
[2016-08-07] MEDS: METOCLOPRAMIDE HCL 10 MG/2 ML VIAL IV PUSH SCH (17:20)
[2016-08-07 20:00] VITALS: BP 104/63; PULSE 76; RESP 18; TEMP 96.2; O2SAT 94
[2016-08-07] MEDS: CETIRIZINE HCL 10 MG TAB PO SCH (20:53)
[2016-08-07] MEDS: SERTRALINE HCL 100 MG TAB PO SCH (20:53)
[2016-08-07] MEDS: ACETAMINOPHEN/HYDROcodone 325 MG/5 MG TAB PO PRN (20:57)
[2016-08-08] VITALS: BP 135/60; PULSE 82; RESP 19; TEMP 96.2; O2SAT 95
[2016-08-08 04:00] VITALS: BP 125/64; PULSE 81; RESP 18; TEMP 96.3; O2SAT 94
[2016-08-08] MEDS: KETOROLAC TROMETHAMINE 30 MG/ML (IVP) VIAL IV PUSH SCH ×4 (05:50→23:31)
[2016-08-08] MEDS: hydrOXYzine HCL 25 MG TAB PO PRN ×3 (06:03→21:05)
[2016-08-08 08:50] VITALS: BP 122/57; PULSE 76; RESP 18; TEMP 96.7; O2SAT 94
[2016-08-08] MEDS: CALAMINE/PRAMOXINE LOTION 180 ML BTL TOPICAL SCH ×2 (09:00→20:50)
[2016-08-08] MEDS: MUPIROCIN 2% CREAM 15 GM TOPICAL SCH ×2 (09:00→20:49)
[2016-08-08] MEDS: METOCLOPRAMIDE HCL 10 MG/2 ML VIAL IV PUSH SCH ×3 (09:26→17:15)
[2016-08-08] MEDS: SODIUM CHLORIDE 0.9% FLUSH 5 ML FLUSH FLUSH SCH ×2 (09:26→21:06)
[2016-08-08] MEDS: VANCOMYCIN 500 MG VIAL (FOR ORAL USE ONLY) PO SCH ×4 (10:08→21:06)
[2016-08-08] MEDS: FUROSEMIDE 20 MG TAB PO SCH (10:08)
[2016-08-08] MEDS: LISINOPRIL 20 MG TAB PO SCH (10:08)
[2016-08-08] MEDS: LACTOBACILLUS ACIDOPHILUS TAB PO SCH ×2 (10:08→21:06)
[2016-08-08] MEDS: ASPIRIN EC 81 MG TABEC PO SCH (10:08)
[2016-08-08] MEDS: ACETAMINOPHEN/HYDROcodone 325 MG/5 MG TAB PO PRN ×2 (10:09→17:56)
[2016-08-08] MEDS: ENOXAPARIN SODIUM 40 MG/0.4 ML SYRINGE SQ SCH (10:09)
--- NOTE | 2016-08-08 10:55 | HHI.PR ---
Subjective Remarks Patient seen and examined this morning. The patient complains of pain in her left side in the hip and leg, states it is from the hip all the way down. Denies right sided pain. She states she is feeling poorly. Feels nauseous with meals, denies vomiting. Patient requesting pain medication. There has been concern that the patient has been taking too much pain medication. She denies any fevers or chills, chest pain or shortness of breath. Objective Vital Signs Date Time Temp Pulse Resp B/P Pulse Ox O2 Delivery O2 Flow Rate FiO2 08/08/16 08:50 96.7 76 18 122/57 94 08/08/16 04:00 96.3 81 18 125/64 94 08/08/16 00:00 96.2 82 19 135/60 95 08/07/16 20:00 96.2 76 18 104/63 94 08/07/16 16:00 97.5 77 16 118/60 93 08/07/16 12:00 98.1 75 16 116/61 96 I/O 08/07/16 08/07/16 08/07/16 08/08/16 08/08/16 08/08/16 07:00 15:00 23:00 07:00 15:00 23:00 Intake Total 480 ml 480 ml 240 ml 120 ml Balance 480 ml 480 ml 240 ml 120 ml Intake Oral 480 ml 480 ml 240 ml 120 ml # Voids 2 2 Result Diagram: 08/06/16 0652 08/06/16 0652 Imaging Last Impressions Hip MRI 07/05/16 0000 Signed Impressions: Service Date/Time: Tuesday, July 05, 2016 10:51 - CONCLUSION: 1. There is osteopenia primary degenerative changes at both hips, left greater than right. 2. Prominent osteophyte along the inferior articulating surface of the proximal left femur. 3. Nonspecific edema in the gluteus and hamstring muscles. 4. No acute bony fracture. Javier Fishman MD Lower Extremity Ultrasound 06/29/16 0000 Signed Impressions: Service Date/Time: Wednesday, June 29, 2016 10:07 - CONCLUSION: Negative for deep venous thrombosis. Alfredo Sanders MD FACR Cervical Spine MRI 06/27/16 0000 Signed Impressions: Service Date/Time: Monday, June 27, 2016 11:09 - CONCLUSION: Mild degenerative changes otherwise unremarkable cervical spine. Anselmo Leavitt MD Thoracic Spine MRI 06/25/16 Signed Impressions: Service Date/Time: June 19:36 - CONCLUSION: 1. No fracture or subluxation of the thoracic spine. 2. Mild and fairly diffuse degenerative changes as above. 3. Mild left foraminal encroachment at T8/T9 and T9/T10. 4. No significant spinal stenosis at any level. 5. Incidentally seen tiny right and small left pleural effusions, nonspecific. Jeevan Arreola MD Lumbar Spine MRI 06/25/16 Signed Impressions: Service Date/Time: June 19:36 - CONCLUSION: 1. Multilevel lumbar degenerative changes as detailed above. 2. Mild spinal stenosis at L3/L4 without evidence of transiting nerve root impingement. 3. Mild to moderate spinal stenosis at L4/L5 and possibly with mild mass effect/impingement on the transiting left L5 nerve root within the subarticular recess. 4. Mild bilateral foraminal encroachment L3/L4 and L4/L5. Mild to moderate bilateral foraminal encroachment at L5/S1. 5. No fracture or subluxation of the lumbar spine. Jeevan Arreola MD Hip and Pelvis X-Ray 06/25/16 Signed Impressions: Service Date/Time: June 20:27 - CONCLUSION: Moderate to severe left hip' right is with considerable osteophytosis and an apparent large inferior joint body. No fracture or subluxation. Jeevan Arreola MD Chest X-Ray 06/23/16 1402 Signed Impressions: Service Date/Time: Thursday, June 23, 2016 14:13 - CONCLUSION: Normal examination. Elías Moreno MD Procedures No procedures. Objective Remarks GENERAL: Well-developed. Morbidly obese. In no acute distress. SKIN: Warm and dry, pale. HEENT: Normocephalic. Pupils equal and round. Mucous membranes pink and moist. CARDIOVASCULAR: Regular rate and rhythm. No murmur RESPIRATORY: Clear to auscultation, no wheezing or crackles. GASTROINTESTINAL: Abdomen soft, non-tender, nondistended. Bowel sounds x4. MUSCULOSKELETAL: No clubbing or cyanosis. Lower extremity edema noted. Tenderness to palpation of left leg, nontender on right leg. NEUROLOGICAL: Awake and alert. No focal neurological deficits. PSYCHIATRIC: Appropriate mood and affect; insight and judgment normal. A/P Problem List: (1) Cellulitis ICD Code: L03.90 (2) Total self-care deficit ICD Code: R41.89 (3) C. difficile diarrhea ICD Code: A04.7 (4) CKD (chronic kidney disease), stage III ICD Code: N18.3 (5) UTI (urinary tract infection) ICD Code: N39.0 (6) Oral thrush ICD Code: B37.0 (7) Subclinical hypothyroidism ICD Code: E03.9 (8) Sacral pressure ulcer ICD Code: L89.159 (9) Arthritis ICD Code: M19.90 (10) Inability to ambulate due to multiple joints ICD Code: R26.2 (11) Bilateral lower extremity edema ICD Code: R60.0 (12) Radiculopathy of lumbar region ICD Code: M54.16 (13) Antibiotic-induced allergic rash ICD Code: T36.91XA Assessment and Plan Assessment and Plan C Difficile Diarrhea Improved Diarrhea, her Flagyl was discontinued but she had new C Diff test positive, started on Vancomycin 250 mg QID 07/26/16. Diarrhea is improving. - continue vancomycin. - repeat C diff PCR 08/06. Pt still has not had a bowel movement. Generalized weakness The patient has been having hard time working with physical therapy secondary to pain. - Pain control. Add standing Toradol. Decrease [place]. - Rehabilitation efforts. UTI UTI resolved. - Not on antibiotics at this time. Sacral Pressure Ulcer Wound care consulted. - Barrier cream recommended, turn every 2 hours. Subclinical hypothyroidism The patient had abnormal thyroid function studies. - repeat function test in 4 to 6 weeks. Radiculopathy of Lumbar region Numbness on the left anterior area of the thigh. TL spine MRI showed mild spinal stenosis at L3-4, moderate to moderate spinal stenosis at L4-5 and possibly with mild mass effect/impingement transiting left L5 nerve root with subarticular recess. Neurosurgery was consulted, ordered C-spine MRI which showed mild degenerative changes. - No intervention per NS. OA Left hip x-ray showed moderate to severe left hip osteoarthritis with considerable osteophytosis and apparent large inferior joint body. MRI of the left hip ruled out osteomyelitis. Mild findings for Myelopathy. - Continue pain control, outpatient orthopedic follow-up is recommended. Toradol added 08/06. Decrease [place]. Hypoglycemia/ Nausea. The pt has chronic nausea. - Ensure added. Diet: clears - Reglan IV with meals. - emt basic consult. - check fingersticks BID. Bilateral Lower extremity Edema Chronic issue. Left worse than right. Bilateral Doppler ultrasound negative for DVT. - Continue MADIE hose and keep legs elevated. Electrolyte derangement Hypokalemia and Hypomagnesemia replaced. - BMP normal 08/08 - continue to monitor. DVT prophylaxis : Lovenox subcutaneously. Discharge Planning Awaiting placement. Problem Qualifiers (1) Cellulitis: Qualified Code: L03.818 - Cellulitis of other specified site (2) Sacral pressure ulcer: Qualified Code: L89.151 - Decubitus ulcer of sacral region, stage 1 Tami Rodriguez MD Aug 08, 2016 10:55
[2016-08-08 12:06] VITALS: BP 129/59; PULSE 77; PULSE 97; RESP 18; TEMP 96.8; O2SAT 94
[2016-08-08 16:36] VITALS: BP 110/61; PULSE 78; RESP 18; TEMP 96.7; O2SAT 94
[2016-08-08 20:00] VITALS: BP 126/58; PULSE 76; RESP 19; TEMP 97.8; O2SAT 93
[2016-08-08] MEDS: CETIRIZINE HCL 10 MG TAB PO SCH (21:05)
[2016-08-08] MEDS: SERTRALINE HCL 100 MG TAB PO SCH (21:06)
[2016-08-09] VITALS: BP 105/77; PULSE 80; RESP 18; TEMP 97.1; O2SAT 95
[2016-08-09 04:00] VITALS: BP 117/58; PULSE 78; RESP 18; TEMP 98; O2SAT 93
[2016-08-09] MEDS: MUPIROCIN 2% CREAM 15 GM TOPICAL SCH ×2 (07:39→20:10)
[2016-08-09] MEDS: CALAMINE/PRAMOXINE LOTION 180 ML BTL TOPICAL SCH ×2 (07:39→20:11)
[2016-08-09] MEDS: METOCLOPRAMIDE HCL 10 MG/2 ML VIAL IV PUSH SCH ×3 (07:41→16:49)
[2016-08-09] MEDS: SODIUM CHLORIDE 0.9% FLUSH 5 ML FLUSH FLUSH SCH ×2 (07:41→21:12)
[2016-08-09 07:50] VITALS: BP 129/70; PULSE 72; RESP 20; TEMP 97.3; O2SAT 95
[2016-08-09] MEDS: FUROSEMIDE 20 MG TAB PO SCH (09:25)
[2016-08-09] MEDS: LISINOPRIL 20 MG TAB PO SCH (09:25)
[2016-08-09] MEDS: ASPIRIN EC 81 MG TABEC PO SCH (09:25)
[2016-08-09] MEDS: ENOXAPARIN SODIUM 40 MG/0.4 ML SYRINGE SQ SCH (09:25)
[2016-08-09] MEDS: VANCOMYCIN 500 MG VIAL (FOR ORAL USE ONLY) PO SCH ×4 (09:25→21:11)
[2016-08-09] MEDS: LACTOBACILLUS ACIDOPHILUS TAB PO SCH ×2 (09:25→21:11)
[2016-08-09] MEDS: hydrOXYzine HCL 25 MG TAB PO PRN ×2 (09:32→18:03)
[2016-08-09] MEDS: ACETAMINOPHEN/HYDROcodone 325 MG/5 MG TAB PO PRN ×2 (09:33→18:01)
[2016-08-09 09:51] LABS: BICARBONATE 28.2 MEQ/L (21.0-32.0); POTASSIUM 3.3 MEQ/L (3.5-5.1)
[2016-08-09 11:30] VITALS: BP 110/55; PULSE 74; RESP 20; TEMP 96.9; O2SAT 95
--- NOTE | 2016-08-09 12:27 | HHI.PR ---
Subjective Remarks Patient seen and examined. Complains of pain in her left side in the hip and leg , states it is from the hip all the way down. Denies right sided pain. She states she feels nauseous with meals, denies vomiting. Patient requesting to be on a regular diet so that family/friends can bring her outside food. She states that she does not like any of the food here in the hospital. She denies any fevers or chills, chest pain or shortness of breath. Objective Vital Signs Date Time Temp Pulse Resp B/P Pulse Ox O2 Delivery O2 Flow Rate FiO2 08/09/16 07:50 97.3 72 20 129/70 95 08/09/16 04:00 98.0 78 18 117/58 93 08/09/16 00:00 97.1 80 18 105/77 95 08/08/16 20:00 97.8 76 19 126/58 93 08/08/16 16:36 96.7 78 18 110/61 94 I/O 08/08/16 08/08/16 08/08/16 08/09/16 08/09/16 08/09/16 07:00 15:00 23:00 07:00 15:00 23:00 Intake Total 120 ml 240 ml 720 ml 240 ml Balance 120 ml 240 ml 720 ml 240 ml Intake Oral 120 ml 240 ml 720 ml 240 ml # Voids 2 1 3 1 Result Diagram: 08/06/16 0652 08/09/16 0800 Procedures No procedures. Objective Remarks GENERAL: Well-developed. Morbidly obese. In no acute distress. SKIN: Warm and dry, pale. HEENT: Normocephalic. Pupils equal and round. Mucous membranes pink and moist. CARDIOVASCULAR: Regular rate and rhythm. No murmur RESPIRATORY: Clear to auscultation, no wheezing or crackles. GASTROINTESTINAL: Abdomen soft, non-tender, nondistended. Bowel sounds x4. MUSCULOSKELETAL: No clubbing or cyanosis. Lower extremity edema noted. Tenderness to palpation of left leg, nontender on right leg. NEUROLOGICAL: Awake and alert. No focal neurological deficits. PSYCHIATRIC: Appropriate mood and affect; insight and judgment normal. A/P Problem List: (1) Cellulitis ICD Code: L03.90 (2) Total self-care deficit ICD Code: R41.89 (3) C. difficile diarrhea ICD Code: A04.7 (4) CKD (chronic kidney disease), stage III ICD Code: N18.3 (5) UTI (urinary tract infection) ICD Code: N39.0 (6) Oral thrush ICD Code: B37.0 (7) Subclinical hypothyroidism ICD Code: E03.9 (8) Sacral pressure ulcer ICD Code: L89.159 (9) Arthritis ICD Code: M19.90 (10) Inability to ambulate due to multiple joints ICD Code: R26.2 (11) Bilateral lower extremity edema ICD Code: R60.0 (12) Radiculopathy of lumbar region ICD Code: M54.16 (13) Antibiotic-induced allergic rash ICD Code: T36.91XA Assessment and Plan Assessment and Plan C Difficile Diarrhea Improved Diarrhea, her Flagyl was discontinued but she had new C Diff test positive, started on Vancomycin 250 mg QID 07/26/16. Diarrhea resolved. - continue vancomycin. - repeat C diff PCR 08/06. Pt still has not had a bowel movement. - Started Leti-Colace 2 tabs twice a day Generalized weakness The patient has been having hard time working with physical therapy secondary to pain. - Pain control. Add standing Toradol. Decrease [place]. - Rehabilitation efforts. - Advised patient to eat regular meals to improve energy level. Patient on regular diet now and able to have food from outside brought in UTI UTI resolved. - Not on antibiotics at this time. Sacral Pressure Ulcer Wound care consulted. - Barrier cream recommended, turn every 2 hours. Subclinical hypothyroidism The patient had abnormal thyroid function studies. - repeat function test in 4 to 6 weeks. Radiculopathy of Lumbar region Numbness on the left anterior area of the thigh. TL spine MRI showed mild spinal stenosis at L3-4, moderate to moderate spinal stenosis at L4-5 and possibly with mild mass effect/impingement transiting left L5 nerve root with subarticular recess. Neurosurgery was consulted, ordered C-spine MRI which showed mild degenerative changes. - No intervention per NS. OA Left hip x-ray showed moderate to severe left hip osteoarthritis with considerable osteophytosis and apparent large inferior joint body. MRI of the left hip ruled out osteomyelitis. Mild findings for Myelopathy. - Continue pain control, outpatient orthopedic follow-up is recommended. Toradol added 08/06. Decrease [place]. Hypoglycemia/ Nausea. The pt has chronic nausea. - Ensure added. Diet: clears - Reglan IV with meals. - power line installer and repairer consult. - check fingersticks BID. Bilateral Lower extremity Edema Chronic issue. Left worse than right. Bilateral Doppler ultrasound negative for DVT. - Continue MADIE hose and keep legs elevated. Electrolyte derangement Hypokalemia and Hypomagnesemia replaced. - BMP 08/09 shows hypokalemia at 3.3, replaced with potassium by mouth 40 mEq 1 - continue to monitor. DVT prophylaxis : Lovenox subcutaneously. Discharge Planning Awaiting placement. Problem Qualifiers (1) Cellulitis: Qualified Code: L03.818 - Cellulitis of other specified site (2) Sacral pressure ulcer: Qualified Code: L89.151 - Decubitus ulcer of sacral region, stage 1 Tami Rodriguez MD Aug 09, 2016 12:27
[2016-08-09] MEDS ORDERED: POTASSIUM CHLORIDE 20 MEQ CONTROLLED RELEASE TAB PO ONE (12:30)
[2016-08-09] MEDS: DOCUSATE SODIUM 50 MG/SENNA 8.6 MG TAB PO SCH ×2 (12:54→21:00)
[2016-08-09] MEDS: ONDANSETRON HCL 4 MG/2 ML VIAL IV PUSH PRN ×2 (13:49→20:12)
[2016-08-09 15:30] VITALS: BP 121/74; PULSE 70; RESP 20; TEMP 96.2; O2SAT 95
[2016-08-09 18:48] LABS: C. DIFF EPI 027 PRESUMPTIVE NEGATIVE (NEGATIVE)
[2016-08-09 20:00] VITALS: BP 113/59; PULSE 81; RESP 19; TEMP 98.3; O2SAT 92
[2016-08-09] MEDS: SERTRALINE HCL 100 MG TAB PO SCH (21:11)
[2016-08-09] MEDS: CETIRIZINE HCL 10 MG TAB PO SCH (21:11)
[2016-08-09 23:05] LABS: C. DIFF TOXIN PCR POSITIVE (NEGATIVE)
[2016-08-10] VITALS: BP 103/57; PULSE 74; RESP 18; TEMP 97.8; O2SAT 92
[2016-08-10] MEDS: hydrOXYzine HCL 25 MG TAB PO PRN ×4 (00:14→23:45)
[2016-08-10] MEDS: ACETAMINOPHEN/HYDROcodone 325 MG/5 MG TAB PO PRN ×3 (00:14→21:25)
[2016-08-10 04:00] VITALS: BP 121/60; PULSE 74; RESP 19; TEMP 96.6; O2SAT 95
[2016-08-10 06:58] LABS: AUTOMATED NEUTROPHIL # 3.1 TH/MM3 (1.8-7.7); BASOPHIL % 0.6 % (0.0-2.0); EOSINOPHIL # 0.8 TH/MM3 (0-0.4); EOSINOPHIL % 12.9 % (0.0-4.0); HEMATOCRIT 29.9 % (35.0-46.0); LYMPH % 26.9 % (9.0-44.0); LYMPHOCYTE # 1.6 TH/MM3 (1.0-4.8); MEAN CELL VOLUME 88.6 FL (80.0-100.0); MEAN CORPUSCULAR HEMOGLOBIN 31.3 PG (27.0-34.0); MEAN CORPUSCULAR HGB CONC 35.3 % (32.0-36.0); NEUT % 50.6 % (16.0-70.0); PLATELET COUNT 215 TH/MM3 (150-450); RED BLOOD COUNT 3.37 MIL/MM3 (4.00-5.30); RED CELL DISTRIBUTION WIDTH 16.3 % (11.6-17.2)
[2016-08-10 07:01] LABS: HEMO FLAGS AUTO DIFF; POTASSIUM 3.6 MEQ/L (3.5-5.1)
[2016-08-10 08:07] LABS: TARGET CELLS 1+ (NORMAL)
[2016-08-10 08:08] LABS: ACANTHOCYTES OCC (NORMAL); PLATELET ESTIMATE SMEAR NORMAL (NORMAL); PLATELET MORPHOLOGY NORMAL (NORMAL); SCAN/DIFF AUTO DIFF CONFIRMED
[2016-08-10 08:49] VITALS: BP 126/71; PULSE 71; RESP 16; TEMP 97.4; O2SAT 95
[2016-08-10] MEDS: DOCUSATE SODIUM 50 MG/SENNA 8.6 MG TAB PO SCH ×2 (09:00→21:00)
[2016-08-10] MEDS: MUPIROCIN 2% CREAM 15 GM TOPICAL SCH ×2 (09:00→21:00)
[2016-08-10] MEDS: CALAMINE/PRAMOXINE LOTION 180 ML BTL TOPICAL SCH ×2 (09:00→21:00)
[2016-08-10] MEDS: METOCLOPRAMIDE HCL 10 MG/2 ML VIAL IV PUSH SCH ×3 (09:08→17:15)
[2016-08-10] MEDS: VANCOMYCIN 500 MG VIAL (FOR ORAL USE ONLY) PO SCH ×4 (09:09→21:25)
[2016-08-10] MEDS: ASPIRIN EC 81 MG TABEC PO SCH (09:10)
[2016-08-10] MEDS: ENOXAPARIN SODIUM 40 MG/0.4 ML SYRINGE SQ SCH (09:10)
[2016-08-10] MEDS: FUROSEMIDE 20 MG TAB PO SCH (09:10)
[2016-08-10] MEDS: LACTOBACILLUS ACIDOPHILUS TAB PO SCH ×2 (09:10→21:24)
[2016-08-10] MEDS: LISINOPRIL 20 MG TAB PO SCH (09:11)
[2016-08-10] MEDS: SODIUM CHLORIDE 0.9% FLUSH 5 ML FLUSH FLUSH SCH ×2 (09:12→21:25)
[2016-08-10] MEDS: ONDANSETRON HCL 4 MG/2 ML VIAL IV PUSH PRN ×3 (10:58→23:45)
[2016-08-10 12:00] VITALS: BP 118/67; PULSE 70; RESP 16; TEMP 97.7; O2SAT 91
[2016-08-10 16:00] VITALS: BP 109/71; PULSE 77; RESP 16; TEMP 97.8; O2SAT 93
--- NOTE | 2016-08-10 17:38 | HHI.PR ---
Subjective Remarks Patient seen this morning around 11:45 AM. Says she is feeling about the same as yesterday. Denies any chest pain or shortness of breath. No fevers or chills. Objective Vital Signs Date Time Temp Pulse Resp B/P Pulse Ox O2 Delivery O2 Flow Rate FiO2 08/10/16 16:00 97.8 77 16 109/71 93 08/10/16 12:00 97.7 70 16 118/67 91 08/10/16 08:49 97.4 71 16 126/71 95 08/10/16 04:00 96.6 74 19 121/60 95 08/10/16 00:00 97.8 74 18 103/57 92 08/09/16 20:00 98.3 81 19 113/59 92 I/O 08/09/16 08/09/16 08/09/16 08/10/16 08/10/16 08/10/16 07:00 15:00 23:00 07:00 15:00 23:00 Intake Total 240 ml 120 ml 480 ml 240 ml 300 ml Balance 240 ml 120 ml 480 ml 240 ml 300 ml Intake Oral 240 ml 120 ml 480 ml 240 ml 300 ml # Voids 1 4 1 1 1 # Bowel Movements 1 1 Result Diagram: 08/10/16 0550 08/10/16 0550 Procedures No procedures. Objective Remarks GENERAL: She sitting up in bed. Appears comfortable. SKIN: Warm and dry. HEAD: Normocephalic. EYES: No scleral icterus. No injection or drainage. NECK: Supple, trachea midline. Obese CARDIOVASCULAR: Regular rate and rhythm without murmurs, gallops, or rubs. RESPIRATORY: Breath sounds equal bilaterally. No accessory muscle use. GASTROINTESTINAL: Abdomen soft, non-tender, nondistended. MUSCULOSKELETAL: No cyanosis, or edema. BACK: Nontender without obvious deformity. No CVA tenderness. A/P Assessment and Plan patient seen on date of service. Again, stable. Continuing treatment for C. difficile. //C Difficile Diarrhea Improved Diarrhea, her Flagyl was discontinued but she had new C Diff test positive, started on Vancomycin 250 mg QID 07/26/16. Diarrhea resolved. - continue vancomycin. - repeat C diff PCR 08/06. Pt still has not had a bowel movement. - Started Leti-Colace 2 tabs twice a day -08/10. Patient will need to continue on vancomycin 42 day taper //Generalized weakness The patient has been having hard time working with physical therapy secondary to pain. - Pain control. Add standing Toradol. Decrease [place]. - Rehabilitation efforts. - Advised patient to eat regular meals to improve energy level. Patient on regular diet now and able to have food from outside brought in //UTI UTI resolved. - Not on antibiotics at this time. //Sacral Pressure Ulcer Wound care consulted. - Barrier cream recommended, turn every 2 hours. //Subclinical hypothyroidism The patient had abnormal thyroid function studies. - repeat function test in 4 to 6 weeks. //Radiculopathy of Lumbar region Numbness on the left anterior area of the thigh. TL spine MRI showed mild spinal stenosis at L3-4, moderate to moderate spinal stenosis at L4-5 and possibly with mild mass effect/impingement transiting left L5 nerve root with subarticular recess. Neurosurgery was consulted, ordered C-spine MRI which showed mild degenerative changes. - No intervention per NS. //OA Left hip x-ray showed moderate to severe left hip osteoarthritis with considerable osteophytosis and apparent large inferior joint body. MRI of the left hip ruled out osteomyelitis. Mild findings for Myelopathy. - Continue pain control, outpatient orthopedic follow-up is recommended. Toradol added 08/06. Decrease [place]. //Hypoglycemia/ Nausea. The pt has chronic nausea. - Ensure added. Diet: clears - Reglan IV with meals. - director of reimbursement consult. - check fingersticks BID. //Bilateral Lower extremity Edema Chronic issue. Left worse than right. Bilateral Doppler ultrasound negative for DVT. - Continue MADIE hose and keep legs elevated. //Electrolyte derangement Hypokalemia and Hypomagnesemia replaced. - BMP 08/09 shows hypokalemia at 3.3, replaced with potassium by mouth 40 mEq 1 - continue to monitor. //DVT prophylaxis : Lovenox subcutaneously. Discharge Planning Awaiting placement. Ede Shin MD Aug 10, 2016 17:38
[2016-08-10 20:00] VITALS: BP 110/55; PULSE 76; RESP 18; TEMP 96.3; O2SAT 95
[2016-08-10] MEDS: SERTRALINE HCL 100 MG TAB PO SCH (21:24)
[2016-08-10] MEDS: CETIRIZINE HCL 10 MG TAB PO SCH (21:27)
[2016-08-11] VITALS: BP 112/62; PULSE 81; RESP 16; TEMP 97; O2SAT 93
[2016-08-11 04:00] VITALS: BP 114/69; PULSE 75; RESP 18; TEMP 96.5; O2SAT 97
[2016-08-11 09:00] VITALS: BP 133/74; PULSE 78; RESP 22; TEMP 97.1; O2SAT 95
[2016-08-11] MEDS: DOCUSATE SODIUM 50 MG/SENNA 8.6 MG TAB PO SCH ×2 (09:00→21:00)
[2016-08-11] MEDS: CALAMINE/PRAMOXINE LOTION 180 ML BTL TOPICAL SCH ×2 (09:00→21:00)
[2016-08-11] MEDS: MUPIROCIN 2% CREAM 15 GM TOPICAL SCH ×2 (09:00→21:00)
[2016-08-11] MEDS: SODIUM CHLORIDE 0.9% FLUSH 5 ML FLUSH FLUSH SCH ×2 (09:15→22:11)
[2016-08-11] MEDS: METOCLOPRAMIDE HCL 10 MG/2 ML VIAL IV PUSH SCH ×3 (09:15→19:15)
[2016-08-11] MEDS: ASPIRIN EC 81 MG TABEC PO SCH (09:15)
[2016-08-11] MEDS: ENOXAPARIN SODIUM 40 MG/0.4 ML SYRINGE SQ SCH (09:16)
[2016-08-11] MEDS: VANCOMYCIN 500 MG VIAL (FOR ORAL USE ONLY) PO SCH ×4 (09:16→22:11)
[2016-08-11] MEDS: FUROSEMIDE 20 MG TAB PO SCH (09:16)
[2016-08-11] MEDS: LISINOPRIL 20 MG TAB PO SCH (09:16)
[2016-08-11] MEDS: LACTOBACILLUS ACIDOPHILUS TAB PO SCH ×2 (09:16→22:11)
[2016-08-11] MEDS: hydrOXYzine HCL 25 MG TAB PO PRN ×2 (09:16→19:15)
[2016-08-11 12:00] VITALS: BP 123/69; PULSE 72; RESP 18; TEMP 97; O2SAT 92
[2016-08-11] MEDS: ACETAMINOPHEN/HYDROcodone 325 MG/5 MG TAB PO PRN ×2 (12:40→22:58)
[2016-08-11 15:45] VITALS: BP 119/62; PULSE 88; RESP 22; TEMP 96.9; O2SAT 93
[2016-08-11] MEDS: ONDANSETRON HCL 4 MG/2 ML VIAL IV PUSH PRN (19:15)
--- NOTE | 2016-08-11 19:25 | HHI.PR ---
Subjective Remarks Patient seen this morning around 10 AM. Patient denies any chest pain or shortness of breath. Objective Vital Signs Date Time Temp Pulse Resp B/P Pulse Ox O2 Delivery O2 Flow Rate FiO2 08/11/16 15:45 96.9 88 22 119/62 93 08/11/16 12:00 97.0 72 18 123/69 92 08/11/16 09:00 97.1 78 22 133/74 95 08/11/16 04:00 96.5 75 18 114/69 97 08/11/16 00:00 97.0 81 16 112/62 93 08/10/16 20:00 96.3 76 18 110/55 95 I/O 08/10/16 08/10/16 08/10/16 08/11/16 08/11/16 08/11/16 06:59 14:59 22:59 06:59 14:59 22:59 Intake Total 240 ml 300 ml 250 ml 840 ml Balance 240 ml 300 ml 250 ml 840 ml Intake Oral 240 ml 300 ml 250 ml 840 ml # Voids 1 1 1 1 1 1 # Bowel Movements 1 1 Result Diagram: 08/10/16 0550 08/10/16 0550 Procedures No procedures. Objective Remarks GENERAL: sitting up in bed. Appears comfortable. SKIN: Warm and dry. HEAD: Normocephalic. EYES: No scleral icterus. No injection or drainage. NECK: Supple, trachea midline. Obese CARDIOVASCULAR: Regular rate and rhythm without murmurs, gallops, or rubs. RESPIRATORY: Breath sounds equal bilaterally. No accessory muscle use. GASTROINTESTINAL: Abdomen soft, non-tender, nondistended. MUSCULOSKELETAL: No cyanosis, or edema. previous sacral ulcer visualized and appears to be completely healed BACK: Nontender without obvious deformity. No CVA tenderness. A/P Assessment and Plan patient seen on date of service. Stable. continue treatment for C. difficile.Discharge planning //C Difficile Diarrhea Improved Diarrhea, her Flagyl was discontinued but she had new C Diff test positive, started on Vancomycin 250 mg QID 07/26/16. Diarrhea resolved. - continue vancomycin. - repeat C diff PCR 08/06. Pt still has not had a bowel movement. - Started Leti-Colace 2 tabs twice a day -08/10. Patient will need to continue on vancomycin 42 day taper //Generalized weakness The patient has been having hard time working with physical therapy secondary to pain. - Pain control. Add standing Toradol. Decrease [place]. - Rehabilitation efforts. - Advised patient to eat regular meals to improve energy level. Patient on regular diet now and able to have food from outside brought in //UTI UTI resolved. - Not on antibiotics at this time. //Sacral Pressure Ulcer Wound care consulted. - Barrier cream recommended, turn every 2 hours. //Subclinical hypothyroidism The patient had abnormal thyroid function studies. - repeat function test in 4 to 6 weeks. //Radiculopathy of Lumbar region Numbness on the left anterior area of the thigh. TL spine MRI showed mild spinal stenosis at L3-4, moderate to moderate spinal stenosis at L4-5 and possibly with mild mass effect/impingement transiting left L5 nerve root with subarticular recess. Neurosurgery was consulted, ordered C-spine MRI which showed mild degenerative changes. - No intervention per NS. //OA Left hip x-ray showed moderate to severe left hip osteoarthritis with considerable osteophytosis and apparent large inferior joint body. MRI of the left hip ruled out osteomyelitis. Mild findings for Myelopathy. - Continue pain control, outpatient orthopedic follow-up is recommended. Toradol added 08/06. Decrease [place]. //Hypoglycemia/ Nausea. The pt has chronic nausea. - Ensure added. Diet: clears - Reglan IV with meals. - outpatient coder consult. - check fingersticks BID. //Bilateral Lower extremity Edema Chronic issue. Left worse than right. Bilateral Doppler ultrasound negative for DVT. - Continue MADIE hose and keep legs elevated. //Electrolyte derangement Hypokalemia and Hypomagnesemia replaced. - BMP 08/09 shows hypokalemia at 3.3, replaced with potassium by mouth 40 mEq 1 - continue to monitor. //DVT prophylaxis : Lovenox subcutaneously. Discharge Planning Awaiting placement. Ede Shin MD Aug 11, 2016 19:24
[2016-08-11 20:00] VITALS: BP 119/80; PULSE 84; RESP 17; TEMP 97.9; O2SAT 94
[2016-08-11] MEDS: SERTRALINE HCL 100 MG TAB PO SCH (22:11)
[2016-08-11] MEDS: CETIRIZINE HCL 10 MG TAB PO SCH (22:11)
[2016-08-12] VITALS: BP 100/67; PULSE 86; RESP 18; TEMP 96.9; O2SAT 95
[2016-08-12 04:00] VITALS: BP 112/73; PULSE 88; RESP 17; TEMP 96.8; O2SAT 94
[2016-08-12] MEDS: LISINOPRIL 20 MG TAB PO SCH (08:31)
[2016-08-12] MEDS: DOCUSATE SODIUM 50 MG/SENNA 8.6 MG TAB PO SCH ×2 (08:31→20:27)
[2016-08-12] MEDS: FUROSEMIDE 20 MG TAB PO SCH (08:31)
[2016-08-12] MEDS: ASPIRIN EC 81 MG TABEC PO SCH (08:31)
[2016-08-12] MEDS: METOCLOPRAMIDE HCL 10 MG/2 ML VIAL IV PUSH SCH ×3 (08:31→17:25)
[2016-08-12] MEDS: VANCOMYCIN 500 MG VIAL (FOR ORAL USE ONLY) PO SCH ×4 (08:31→20:26)
[2016-08-12] MEDS: ENOXAPARIN SODIUM 40 MG/0.4 ML SYRINGE SQ SCH (08:31)
[2016-08-12] MEDS: LACTOBACILLUS ACIDOPHILUS TAB PO SCH ×2 (08:31→20:26)
[2016-08-12] MEDS: CALAMINE/PRAMOXINE LOTION 180 ML BTL TOPICAL SCH ×2 (08:32→20:18)
[2016-08-12] MEDS: MUPIROCIN 2% CREAM 15 GM TOPICAL SCH ×2 (08:32→20:26)
[2016-08-12] MEDS: SODIUM CHLORIDE 0.9% FLUSH 5 ML FLUSH FLUSH SCH ×2 (08:32→20:28)
[2016-08-12 08:44] VITALS: BP 111/76; PULSE 74; RESP 20; TEMP 96.8; O2SAT 93
[2016-08-12] MEDS: ACETAMINOPHEN/HYDROcodone 325 MG/5 MG TAB PO PRN ×2 (10:32→20:27)
[2016-08-12] MEDS: hydrOXYzine HCL 25 MG TAB PO PRN ×2 (10:32→20:27)
[2016-08-12 12:00] VITALS: BP 121/76; PULSE 70; RESP 18; TEMP 96.8; O2SAT 97
[2016-08-12 16:00] VITALS: BP 125/70; PULSE 70; RESP 22; TEMP 96.3; O2SAT 94
[2016-08-12 20:00] VITALS: BP 105/63; PULSE 78; RESP 18; TEMP 96.6; O2SAT 95
[2016-08-12] MEDS: CETIRIZINE HCL 10 MG TAB PO SCH (20:27)
[2016-08-12] MEDS: SERTRALINE HCL 100 MG TAB PO SCH (20:27)
[2016-08-12] MEDS: ONDANSETRON HCL 4 MG/2 ML VIAL IV PUSH PRN (20:30)
--- NOTE | 2016-08-12 23:25 | HHI.PR ---
Subjective Remarks Patient seen this morning around 10:30 AM. Patient reports dull abdominal pain over the past several days. Still with liquid bowel movements. Objective Vital Signs Date Time Temp Pulse Resp B/P Pulse Ox O2 Delivery O2 Flow Rate FiO2 08/12/16 21:27 16 08/12/16 20:00 96.6 78 18 105/63 95 08/12/16 16:00 96.3 70 22 125/70 94 08/12/16 12:00 96.8 70 18 121/76 97 08/12/16 08:44 96.8 74 20 111/76 93 08/12/16 04:00 96.8 88 17 112/73 94 08/12/16 00:00 96.9 86 18 100/67 95 I/O 08/11/16 08/11/16 08/11/16 08/12/16 08/12/16 08/12/16 07:00 15:00 23:00 07:00 15:00 23:00 Intake Total 250 ml 840 ml 240 ml 960 ml 240 ml Balance 250 ml 840 ml 240 ml 960 ml 240 ml Intake Oral 250 ml 840 ml 240 ml 960 ml 240 ml # Voids 1 1 2 2 1 # Bowel Movements 1 Result Diagram: 08/10/16 0550 08/10/16 0550 Procedures No procedures. Objective Remarks GENERAL: sitting up in bed. Appears comfortable. SKIN: Warm and dry. HEAD: Normocephalic. EYES: No scleral icterus. No injection or drainage. NECK: Supple, trachea midline. Obese CARDIOVASCULAR: Regular rate and rhythm without murmurs, gallops, or rubs. RESPIRATORY: Breath sounds equal bilaterally. No accessory muscle use. GASTROINTESTINAL: Abdomen soft, non-tender, nondistended. no rebound or guarding MUSCULOSKELETAL: No cyanosis, or edema. previous sacral ulcer visualized and appears to be completely healed BACK: Nontender without obvious deformity. No CVA tenderness. A/P Assessment and Plan //C Difficile Diarrhea Improved Diarrhea, her Flagyl was discontinued but she had new C Diff test positive, started on Vancomycin 250 mg QID 07/26/16. Diarrhea resolved. - continue vancomycin. - repeat C diff PCR 08/06. Pt still has not had a bowel movement. - Started Leti-Colace 2 tabs twice a day -08/10. Patient will need to continue on vancomycin 42 day taper -08/12. patient still with abdominal pain, loose stools. Will increase vancomycin to 500 mg by mouth 4 times daily. //Generalized weakness The patient has been having hard time working with physical therapy secondary to pain. - Pain control. Add standing Toradol. Decrease [place]. - Rehabilitation efforts. - Advised patient to eat regular meals to improve energy level. Patient on regular diet now and able to have food from outside brought in //UTI UTI resolved. - Not on antibiotics at this time. //Sacral Pressure Ulcer Wound care consulted. - Barrier cream recommended, turn every 2 hours. //Subclinical hypothyroidism The patient had abnormal thyroid function studies. - repeat function test in 4 to 6 weeks. //Radiculopathy of Lumbar region Numbness on the left anterior area of the thigh. TL spine MRI showed mild spinal stenosis at L3-4, moderate to moderate spinal stenosis at L4-5 and possibly with mild mass effect/impingement transiting left L5 nerve root with subarticular recess. Neurosurgery was consulted, ordered C-spine MRI which showed mild degenerative changes. - No intervention per NS. //OA Left hip x-ray showed moderate to severe left hip osteoarthritis with considerable osteophytosis and apparent large inferior joint body. MRI of the left hip ruled out osteomyelitis. Mild findings for Myelopathy. - Continue pain control, outpatient orthopedic follow-up is recommended. Toradol added 08/06. Decrease [place]. //Hypoglycemia/ Nausea. The pt has chronic nausea. - Ensure added. Diet: clears - Reglan IV with meals. - production broacher consult. - check fingersticks BID. //Bilateral Lower extremity Edema Chronic issue. Left worse than right. Bilateral Doppler ultrasound negative for DVT. - Continue MADIE hose and keep legs elevated. //Electrolyte derangement Hypokalemia and Hypomagnesemia replaced. - BMP 08/09 shows hypokalemia at 3.3, replaced with potassium by mouth 40 mEq 1 - continue to monitor. //DVT prophylaxis : Lovenox subcutaneously. Discharge Planning Awaiting placement. difficult placement due to C. difficile diarrhea. Appreciate case management assistance. Ede Shin MD Aug 12, 2016 23:25
[2016-08-13] VITALS: BP 114/63; PULSE 70; RESP 20; TEMP 96.8; O2SAT 98
[2016-08-13 04:00] VITALS: BP 112/58; PULSE 78; RESP 22; TEMP 96.1; O2SAT 95
[2016-08-13 08:43] VITALS: BP 131/61; PULSE 96; RESP 20; TEMP 96; O2SAT 97
[2016-08-13] MEDS: MUPIROCIN 2% CREAM 15 GM TOPICAL SCH ×2 (09:00→21:00)
[2016-08-13] MEDS: CALAMINE/PRAMOXINE LOTION 180 ML BTL TOPICAL SCH ×2 (09:00→21:00)
[2016-08-13 09:05] LABS: AUTOMATED NEUTROPHIL # 3.1 TH/MM3 (1.8-7.7); BASOPHIL % 0.5 % (0.0-2.0); EOSINOPHIL # 1.1 TH/MM3 (0-0.4); EOSINOPHIL % 16.6 % (0.0-4.0); HEMATOCRIT 31.7 % (35.0-46.0); LYMPH % 25.5 % (9.0-44.0); LYMPHOCYTE # 1.7 TH/MM3 (1.0-4.8); MEAN CELL VOLUME 84.7 FL (80.0-100.0); MEAN CORPUSCULAR HEMOGLOBIN 27.6 PG (27.0-34.0); MEAN CORPUSCULAR HGB CONC 32.5 % (32.0-36.0); MONO % 10.1 % (0.0-8.0); NEUT % 47.3 % (16.0-70.0); PLATELET COUNT 225 TH/MM3 (150-450); RED BLOOD COUNT 3.75 MIL/MM3 (4.00-5.30); RED CELL DISTRIBUTION WIDTH 16.6 % (11.6-17.2); WHITE BLOOD COUNT 6.5 TH/MM3 (4.0-11.0)
[2016-08-13 09:12] LABS: HEMO FLAGS AUTO DIFF
[2016-08-13 09:19] LABS: BICARBONATE 29.9 MEQ/L (21.0-32.0); POTASSIUM 3.5 MEQ/L (3.5-5.1)
[2016-08-13] MEDS: ENOXAPARIN SODIUM 40 MG/0.4 ML SYRINGE SQ SCH (09:42)
[2016-08-13] MEDS: LACTOBACILLUS ACIDOPHILUS TAB PO SCH ×2 (09:42→21:49)
[2016-08-13] MEDS: FUROSEMIDE 20 MG TAB PO SCH (09:43)
[2016-08-13] MEDS: ASPIRIN EC 81 MG TABEC PO SCH (09:44)
[2016-08-13] MEDS: LISINOPRIL 20 MG TAB PO SCH (09:45)
[2016-08-13] MEDS: DOCUSATE SODIUM 50 MG/SENNA 8.6 MG TAB PO SCH ×2 (09:45→21:00)
[2016-08-13] MEDS: VANCOMYCIN 500 MG VIAL (FOR ORAL USE ONLY) PO SCH ×4 (09:46→21:49)
[2016-08-13] MEDS: METOCLOPRAMIDE HCL 10 MG/2 ML VIAL IV PUSH SCH ×3 (09:47→18:16)
[2016-08-13] MEDS: SODIUM CHLORIDE 0.9% FLUSH 5 ML FLUSH FLUSH SCH ×2 (09:48→21:49)
[2016-08-13 09:54] LABS: SCAN/DIFF AUTO DIFF CONFIRMED; TARGET CELLS 1+ (NORMAL)
[2016-08-13] MEDS: hydrOXYzine HCL 25 MG TAB PO PRN ×2 (11:12→18:14)
[2016-08-13] MEDS: ACETAMINOPHEN/HYDROcodone 325 MG/5 MG TAB PO PRN ×3 (11:12→21:50)
[2016-08-13 12:39] VITALS: BP 116/66; PULSE 77; RESP 21; TEMP 96.6; O2SAT 96
[2016-08-13 16:35] VITALS: BP 115/63; PULSE 68; RESP 18; TEMP 96.7; O2SAT 97
[2016-08-13] MEDS: ONDANSETRON HCL 4 MG/2 ML VIAL IV PUSH PRN (17:01)
[2016-08-13 20:00] VITALS: BP 140/62; PULSE 74; RESP 16; TEMP 97.3; O2SAT 94
[2016-08-13] MEDS: CETIRIZINE HCL 10 MG TAB PO SCH (21:49)
[2016-08-13] MEDS: SERTRALINE HCL 100 MG TAB PO SCH (21:49)
--- NOTE | 2016-08-13 23:26 | HHI.PR ---
Subjective Remarks Patient seen today around 4 PM. She reports nausea and abdominal discomfort slightly improved today. Objective Vital Signs Date Time Temp Pulse Resp B/P Pulse Ox O2 Delivery O2 Flow Rate FiO2 08/13/16 20:00 97.3 74 16 140/62 94 08/13/16 16:35 96.7 68 18 115/63 97 08/13/16 12:39 96.6 77 21 116/66 96 08/13/16 08:43 96.0 96 20 131/61 97 08/13/16 04:00 96.1 78 22 112/58 95 08/13/16 00:00 96.8 70 20 114/63 98 I/O 08/12/16 08/12/16 08/12/16 08/13/16 08/13/16 08/13/16 07:00 15:00 23:00 07:00 15:00 23:00 Intake Total 960 ml 240 ml 240 ml Balance 960 ml 240 ml 240 ml Intake Oral 960 ml 240 ml 240 ml # Voids 2 1 2 2 1 # Bowel Movements 0 0 Result Diagram: 08/13/1682208/13/16822 Procedures No procedures. Objective Remarks GENERAL: sitting up in bed. Appears comfortable.exam unchanged from yesterday. SKIN: Warm and dry. HEAD: Normocephalic. EYES: No scleral icterus. No injection or drainage. NECK: Supple, trachea midline. Obese CARDIOVASCULAR: Regular rate and rhythm without murmurs, gallops, or rubs. RESPIRATORY: Breath sounds equal bilaterally. No accessory muscle use. GASTROINTESTINAL: Abdomen soft, non-tender, nondistended. no rebound or guarding MUSCULOSKELETAL: No cyanosis, or edema. 08/11previous sacral ulcer visualized and appears to be completely healed BACK: Nontender without obvious deformity. No CVA tenderness. A/P Assessment and Plan //C Difficile Diarrhea Improved Diarrhea, her Flagyl was discontinued but she had new C Diff test positive, started on Vancomycin 250 mg QID 07/26/16. Diarrhea resolved. - continue vancomycin. - repeat C diff PCR 08/06. Pt still has not had a bowel movement. - Started Leti-Colace 2 tabs twice a day -08/10. Patient will need to continue on vancomycin 42 day taper -08/12. patient still with abdominal pain, loose stools. Will increase vancomycin to 500 mg by mouth 4 times daily. =continue to monitor bowel movements. //Generalized weakness The patient has been having hard time working with physical therapy secondary to pain. - Pain control. Add standing Toradol. Decrease [place]. - Rehabilitation efforts. - Advised patient to eat regular meals to improve energy level. Patient on regular diet now and able to have food from outside brought in //UTI UTI resolved. - Not on antibiotics at this time. //Sacral Pressure Ulcer Wound care consulted. - Barrier cream recommended, turn every 2 hours. //Subclinical hypothyroidism The patient had abnormal thyroid function studies. - repeat function test in 4 to 6 weeks. //Radiculopathy of Lumbar region Numbness on the left anterior area of the thigh. TL spine MRI showed mild spinal stenosis at L3-4, moderate to moderate spinal stenosis at L4-5 and possibly with mild mass effect/impingement transiting left L5 nerve root with subarticular recess. Neurosurgery was consulted, ordered C-spine MRI which showed mild degenerative changes. - No intervention per NS. //OA Left hip x-ray showed moderate to severe left hip osteoarthritis with considerable osteophytosis and apparent large inferior joint body. MRI of the left hip ruled out osteomyelitis. Mild findings for Myelopathy. - Continue pain control, outpatient orthopedic follow-up is recommended. Toradol added 08/06. Decrease [place]. //Hypoglycemia/ Nausea. The pt has chronic nausea. - Ensure added. Diet: clears - Reglan IV with meals. - child and adolescent therapist consult. - check fingersticks BID. //Bilateral Lower extremity Edema Chronic issue. Left worse than right. Bilateral Doppler ultrasound negative for DVT. - Continue MADIE hose and keep legs elevated. //Electrolyte derangement Hypokalemia and Hypomagnesemia replaced. - BMP 08/09 shows hypokalemia at 3.3, replaced with potassium by mouth 40 mEq 1 - continue to monitor. //DVT prophylaxis : Lovenox subcutaneously. Discharge Planning Awaiting placement. difficult placement due to C. difficile diarrhea. Appreciate case management assistance. Ede Shin MD Aug 13, 2016 23:26
[2016-08-14] VITALS: BP 95/56; PULSE 80; RESP 20; TEMP 96.3; O2SAT 93
[2016-08-14 04:00] VITALS: BP_SYST 102; BP_SYST 132; BP_DIAS 50; BP_DIAS 81; PULSE 68; PULSE 74; RESP 20; TEMP 93.7; TEMP 96.7; O2SAT 93
[2016-08-14 07:14] LABS: AUTOMATED NEUTROPHIL # 3.7 TH/MM3 (1.8-7.7); BASOPHIL % 0.5 % (0.0-2.0); EOSINOPHIL # 0.9 TH/MM3 (0-0.4); EOSINOPHIL % 12.3 % (0.0-4.0); HEMATOCRIT 30.6 % (35.0-46.0); LYMPHOCYTE # 1.9 TH/MM3 (1.0-4.8); MEAN CELL VOLUME 82.5 FL (80.0-100.0); MEAN CORPUSCULAR HEMOGLOBIN 27.7 PG (27.0-34.0); MEAN CORPUSCULAR HGB CONC 33.5 % (32.0-36.0); MONO % 7.4 % (0.0-8.0); NEUT % 52.8 % (16.0-70.0); PLATELET COUNT 239 TH/MM3 (150-450); RED CELL DISTRIBUTION WIDTH 16.4 % (11.6-17.2); WHITE BLOOD COUNT 7.1 TH/MM3 (4.0-11.0)
[2016-08-14 07:25] LABS: HEMO FLAGS AUTO DIFF
[2016-08-14 07:50] LABS: POTASSIUM 3.3 MEQ/L (3.5-5.1)
[2016-08-14 08:19] LABS: SCAN/DIFF AUTO DIFF CONFIRMED; TARGET CELLS 1+ (NORMAL)
[2016-08-14 08:29] VITALS: BP 128/62; PULSE 79; RESP 19; TEMP 96.9; O2SAT 95
[2016-08-14] MEDS: ONDANSETRON HCL 4 MG/2 ML VIAL IV PUSH PRN ×2 (08:43→17:37)
[2016-08-14] MEDS: ENOXAPARIN SODIUM 40 MG/0.4 ML SYRINGE SQ SCH (08:46)
[2016-08-14] MEDS: hydrOXYzine HCL 25 MG TAB PO PRN ×2 (08:47→17:33)
[2016-08-14] MEDS: VANCOMYCIN 500 MG VIAL (FOR ORAL USE ONLY) PO SCH ×4 (08:51→22:26)
[2016-08-14] MEDS: ACETAMINOPHEN/HYDROcodone 325 MG/5 MG TAB PO PRN ×3 (08:51→22:25)
[2016-08-14] MEDS: LISINOPRIL 10 MG TAB PO SCH (08:54)
[2016-08-14] MEDS: LACTOBACILLUS ACIDOPHILUS TAB PO SCH ×2 (08:54→22:25)
[2016-08-14] MEDS: DOCUSATE SODIUM 50 MG/SENNA 8.6 MG TAB PO SCH ×2 (08:54→21:00)
[2016-08-14] MEDS: ASPIRIN EC 81 MG TABEC PO SCH (08:56)
[2016-08-14] MEDS: FUROSEMIDE 20 MG TAB PO SCH (08:57)
[2016-08-14] MEDS: SODIUM CHLORIDE 0.9% FLUSH 5 ML FLUSH FLUSH SCH ×2 (08:58→22:27)
[2016-08-14] MEDS: METOCLOPRAMIDE HCL 10 MG/2 ML VIAL IV PUSH SCH ×3 (08:58→17:39)
[2016-08-14] MEDS: MUPIROCIN 2% CREAM 15 GM TOPICAL SCH ×2 (08:59→22:27)
[2016-08-14] MEDS: CALAMINE/PRAMOXINE LOTION 180 ML BTL TOPICAL SCH ×2 (08:59→22:28)
[2016-08-14 12:25] VITALS: BP 135/79; PULSE 68; RESP 21; TEMP 96.2; O2SAT 90
[2016-08-14 17:06] VITALS: BP 124/69; PULSE 70; RESP 18; TEMP 97.2; O2SAT 90
[2016-08-14] MEDS ORDERED: POTASSIUM CHLORIDE 10 MEQ CONTROLLED RELEASE TAB PO ONE (19:00)
[2016-08-14 20:00] VITALS: BP 114/58; PULSE 75; RESP 19; TEMP 96; O2SAT 94
[2016-08-14] MEDS: CETIRIZINE HCL 10 MG TAB PO SCH (22:24)
[2016-08-14] MEDS: SERTRALINE HCL 100 MG TAB PO SCH (22:24)
--- NOTE | 2016-08-14 23:16 | HHI.PR ---
Subjective Remarks Patient seen today around noon. She reports that abdominal pain is slightly better. She says she still has some nausea, but no vomiting. Denies any chest pain or shortness of breath. Objective Vital Signs Date Time Temp Pulse Resp B/P Pulse Ox O2 Delivery O2 Flow Rate FiO2 08/14/16 20:00 96.0 75 19 114/58 94 08/14/16 17:06 97.2 70 18 124/69 90 08/14/16 12:25 96.2 68 21 135/79 90 08/14/16 08:29 96.9 79 19 128/62 95 08/14/16 04:00 96.7 74 20 102/50 93 08/14/16 00:00 96.3 80 20 95/56 93 I/O 08/13/16 08/13/16 08/13/16 08/14/16 08/14/16 08/14/16 07:00 15:00 23:00 07:00 15:00 23:00 Intake Total 240 ml 120 ml 240 ml 0 ml Balance 240 ml 120 ml 240 ml 0 ml Intake Oral 240 ml 120 ml 240 ml 0 ml IV Total 0 ml # Voids 2 2 1 0 1 0 # Bowel Movements 0 0 0 1 Result Diagram: 08/14/16 0632 08/14/16 0632 Procedures No procedures. Objective Remarks GENERAL: sitting up in bed. Appears comfortable.aaox3 SKIN: Warm and dry. HEAD: Normocephalic. EYES: No scleral icterus. No injection or drainage. NECK: Supple, trachea midline. Obese CARDIOVASCULAR: Regular rate and rhythm without murmurs, gallops, or rubs. RESPIRATORY: Breath sounds equal bilaterally. No accessory muscle use. GASTROINTESTINAL: Abdomen soft, non-tender, nondistended. no rebound or guarding MUSCULOSKELETAL: No cyanosis, or edema. 08/11previous sacral ulcer visualized and appears to be completely healed BACK: Nontender without obvious deformity. No CVA tenderness. A/P Assessment and Plan //C Difficile Diarrhea Improved Diarrhea, her Flagyl was discontinued but she had new C Diff test positive, started on Vancomycin 250 mg QID 07/26/16. Diarrhea resolved. - continue vancomycin. - repeat C diff PCR 08/06. Pt still has not had a bowel movement. - Started Leti-Colace 2 tabs twice a day -08/10. Patient will need to continue on vancomycin 42 day taper -08/12. patient still with abdominal pain, loose stools. Will increase vancomycin to 500 mg by mouth 4 times daily. =improving.continue by mouth vancomycin. continue to monitor bowel movements. //Generalized weakness The patient has been having hard time working with physical therapy secondary to pain. - Pain control. Add standing Toradol. Decrease [place]. - Rehabilitation efforts. - Advised patient to eat regular meals to improve energy level. Patient on regular diet now and able to have food from outside brought in = continue work with physical therapy. //UTI - resolved. - Not on antibiotics at this time. //Sacral Pressure Ulcer Wound care consulted. - Barrier cream recommended, turn every 2 hours. = much improved. //Subclinical hypothyroidism The patient had abnormal thyroid function studies. - repeat function test in 4 to 6 weeks. //Radiculopathy of Lumbar region Numbness on the left anterior area of the thigh. TL spine MRI showed mild spinal stenosis at L3-4, moderate to moderate spinal stenosis at L4-5 and possibly with mild mass effect/impingement transiting left L5 nerve root with subarticular recess. Neurosurgery was consulted, ordered C-spine MRI which showed mild degenerative changes. - No intervention per NS. //OA Left hip x-ray showed moderate to severe left hip osteoarthritis with considerable osteophytosis and apparent large inferior joint body. MRI of the left hip ruled out osteomyelitis. Mild findings for Myelopathy. - Continue pain control, outpatient orthopedic follow-up is recommended. Toradol added 08/06. Decrease [place]. //Hypoglycemia/ Nausea. The pt has chronic nausea. - Ensure added. Diet: clears - Reglan IV with meals. - locomotive lubricating systems clerk consult. - check fingersticks BID. -continue Zofran IV when necessary. //Bilateral Lower extremity Edema Chronic issue. Left worse than right. Bilateral Doppler ultrasound negative for DVT. - Continue MADIE hose and keep legs elevated. //Electrolyte derangement Hypokalemia and Hypomagnesemia replaced. - BMP 08/09 shows hypokalemia at 3.3, replaced with potassium by mouth 40 mEq 1 - continue to monitor. -08/14 -potassium replaced. Continue to monitor. //DVT prophylaxis : Lovenox subcutaneously. Discharge Planning Awaiting placement. difficult placement due to C. difficile diarrhea. Appreciate case management assistance. Ede Shin MD Aug 14, 2016 23:16
[2016-08-15] VITALS: BP_SYST 112; BP_SYST 139; BP_DIAS 56; BP_DIAS 82; PULSE 77; PULSE 93; RESP 18; RESP 19; TEMP 96.3; TEMP 98; O2SAT 92; O2SAT 94
[2016-08-15 04:00] VITALS: BP 125/59; PULSE 74; RESP 18; TEMP 96.6; O2SAT 92
[2016-08-15] MEDS: ACETAMINOPHEN/HYDROcodone 325 MG/5 MG TAB PO PRN ×2 (05:39→22:26)
[2016-08-15 08:11] VITALS: BP 122/60; PULSE 74; RESP 20; TEMP 96.5; O2SAT 98
[2016-08-15] MEDS: VANCOMYCIN 500 MG VIAL (FOR ORAL USE ONLY) PO SCH ×4 (08:32→22:26)
[2016-08-15] MEDS: ENOXAPARIN SODIUM 40 MG/0.4 ML SYRINGE SQ SCH (08:32)
[2016-08-15] MEDS: DOCUSATE SODIUM 50 MG/SENNA 8.6 MG TAB PO SCH ×2 (08:33→21:00)
[2016-08-15] MEDS: MUPIROCIN 2% CREAM 15 GM TOPICAL SCH ×2 (08:33→22:27)
[2016-08-15] MEDS: LISINOPRIL 10 MG TAB PO SCH (08:33)
[2016-08-15] MEDS: METOCLOPRAMIDE HCL 10 MG/2 ML VIAL IV PUSH SCH ×3 (08:33→16:41)
[2016-08-15] MEDS: SODIUM CHLORIDE 0.9% FLUSH 5 ML FLUSH FLUSH SCH ×2 (08:33→22:26)
[2016-08-15] MEDS: ASPIRIN EC 81 MG TABEC PO SCH (08:33)
[2016-08-15] MEDS: LACTOBACILLUS ACIDOPHILUS TAB PO SCH ×2 (08:33→22:25)
[2016-08-15] MEDS: FUROSEMIDE 20 MG TAB PO SCH (08:33)
[2016-08-15] MEDS: CALAMINE/PRAMOXINE LOTION 180 ML BTL TOPICAL SCH ×2 (08:34→22:27)
[2016-08-15] MEDS: ONDANSETRON HCL 4 MG/2 ML VIAL IV PUSH PRN (08:42)
[2016-08-15 12:07] VITALS: BP 118/58; PULSE 75; RESP 20; TEMP 96.8; O2SAT 95
[2016-08-15] MEDS ORDERED: DRONABINOL 2.5 MG CAP PO ONE (12:45)
[2016-08-15] MEDS: DRONABINOL 5 MG CAP PO SCH (16:41)
[2016-08-15 16:47] VITALS: BP 114/59; PULSE 79; RESP 20; TEMP 96.4; O2SAT 94
[2016-08-15 20:00] VITALS: BP 104/58; PULSE 83; RESP 18; TEMP 96.5; O2SAT 96
[2016-08-15] MEDS: SERTRALINE HCL 100 MG TAB PO SCH (22:24)
[2016-08-15] MEDS: CETIRIZINE HCL 10 MG TAB PO SCH (22:24)
[2016-08-15] MEDS: hydrOXYzine HCL 25 MG TAB PO PRN (22:42)
[2016-08-16] VITALS: BP 102/56; PULSE 80; RESP 18; TEMP 96.3; O2SAT 96
[2016-08-16 04:00] VITALS: BP 140/58; PULSE 62; RESP 18; TEMP 97.5; O2SAT 93
[2016-08-16] MEDS: ACETAMINOPHEN/HYDROcodone 325 MG/5 MG TAB PO PRN ×2 (06:08→23:03)
[2016-08-16] MEDS: ONDANSETRON HCL 4 MG/2 ML VIAL IV PUSH PRN (06:16)
[2016-08-16 07:41] LABS: AUTOMATED NEUTROPHIL # 4.6 TH/MM3 (1.8-7.7); BASOPHIL # 0.1 TH/MM3 (0-0.2); BASOPHIL % 0.7 % (0.0-2.0); EOSINOPHIL % 12.3 % (0.0-4.0); HEMATOCRIT 30.3 % (35.0-46.0); LYMPHOCYTE # 1.7 TH/MM3 (1.0-4.8); MEAN CELL VOLUME 83.2 FL (80.0-100.0); MEAN CORPUSCULAR HEMOGLOBIN 28.8 PG (27.0-34.0); MEAN CORPUSCULAR HGB CONC 34.6 % (32.0-36.0); PLATELET COUNT 230 TH/MM3 (150-450); RED BLOOD COUNT 3.65 MIL/MM3 (4.00-5.30); WHITE BLOOD COUNT 8.1 TH/MM3 (4.0-11.0)
--- NOTE | 2016-08-16 07:47 | HHI.PR ---
Subjective Remarks late entry. date of service 08/15/16. [facility]16 pt says nausea still present. Appetite still poor. Would like to start Marinol. Reports abdominal discomfort unchanged. Still with loose bowel movements. Objective Vital Signs Date Time Temp Pulse Resp B/P Pulse Ox O2 Delivery O2 Flow Rate FiO2 08/16/16 04:00 97.5 62 18 140/58 93 08/16/16 00:00 96.3 80 18 102/56 96 08/15/16 20:00 96.5 83 18 104/58 96 08/15/16 16:47 96.4 79 20 114/59 94 08/15/16 12:07 96.8 75 20 118/58 95 08/15/16 08:11 96.5 74 20 122/60 98 I/O 08/15/16 08/15/16 08/15/16 08/16/16 08/16/16 08/16/16 07:00 15:00 23:00 07:00 15:00 23:00 Intake Total 120 ml 120 ml Balance 120 ml 120 ml Intake Oral 120 ml 120 ml # Voids 0 2 3 # Bowel Movements 1 1 Result Diagram: 08/14/16 0632 08/14/16 0632 Procedures No procedures. Objective Remarks GENERAL: sitting up in bed. Appears comfortable.aaox3. exam unchanged from day prior. SKIN: Warm and dry. HEAD: Normocephalic. EYES: No scleral icterus. No injection or drainage. NECK: Supple, trachea midline. Obese CARDIOVASCULAR: Regular rate and rhythm without murmurs, gallops, or rubs. RESPIRATORY: Breath sounds equal bilaterally. No accessory muscle use. GASTROINTESTINAL: Abdomen soft, non-tender, nondistended. no rebound or guarding MUSCULOSKELETAL: No cyanosis, or edema. 08/11previous sacral ulcer visualized and appears to be completely healed BACK: Nontender without obvious deformity. No CVA tenderness. A/P Assessment and Plan //C Difficile Diarrhea Improved Diarrhea, her Flagyl was discontinued but she had new C Diff test positive, started on Vancomycin 250 mg QID 07/26/16. Diarrhea resolved. - continue vancomycin. - repeat C diff PCR 08/06. Pt still has not had a bowel movement. - Started Leti-Colace 2 tabs twice a day -08/10. Patient will need to continue on vancomycin 42 day taper -08/12. patient still with abdominal pain, loose stools. Will increase vancomycin to 500 mg by mouth 4 times daily. =improving.continue by mouth vancomycin. continue to monitor bowel movements. //Generalized weakness The patient has been having hard time working with physical therapy secondary to pain. - Pain control. Add standing Toradol. Decrease [place]. - Rehabilitation efforts. - Advised patient to eat regular meals to improve energy level. Patient on regular diet now and able to have food from outside brought in = continue work with physical therapy. //UTI - resolved. - Not on antibiotics at this time. //Sacral Pressure Ulcer Wound care consulted. - Barrier cream recommended, turn every 2 hours. = much improved. //Subclinical hypothyroidism The patient had abnormal thyroid function studies. - repeat function test in 4 to 6 weeks. //Radiculopathy of Lumbar region Numbness on the left anterior area of the thigh. TL spine MRI showed mild spinal stenosis at L3-4, moderate to moderate spinal stenosis at L4-5 and possibly with mild mass effect/impingement transiting left L5 nerve root with subarticular recess. Neurosurgery was consulted, ordered C-spine MRI which showed mild degenerative changes. - No intervention per NS. //OA Left hip x-ray showed moderate to severe left hip osteoarthritis with considerable osteophytosis and apparent large inferior joint body. MRI of the left hip ruled out osteomyelitis. Mild findings for Myelopathy. - Continue pain control, outpatient orthopedic follow-up is recommended. Toradol added 08/06. Decrease [place]. //Hypoglycemia/ Nausea. The pt has chronic nausea. - Ensure added. Diet: clears - Reglan IV with meals. - candle pourer consult. - check fingersticks BID. -continue Zofran IV when necessary. -08/15. Add Marinol for appetite, nausea. Continue to monitor. //Bilateral Lower extremity Edema Chronic issue. Left worse than right. Bilateral Doppler ultrasound negative for DVT. - Continue MADIE hose and keep legs elevated. //Electrolyte derangement Hypokalemia and Hypomagnesemia replaced. - BMP 08/09 shows hypokalemia at 3.3, replaced with potassium by mouth 40 mEq 1 - continue to monitor. -08/14 -potassium replaced. Continue to monitor. =follow potassium. //DVT prophylaxis : Lovenox subcutaneously. Discharge Planning Awaiting placement. difficult placement due to C. difficile diarrhea. Appreciate case management assistance. Ede Shin MD Aug 16, 2016 07:47
[2016-08-16 07:48] LABS: BICARBONATE 28.4 MEQ/L (21.0-32.0); POTASSIUM 3.5 MEQ/L (3.5-5.1)
[2016-08-16 07:51] LABS: HEMO FLAGS AUTO DIFF
[2016-08-16 08:14] VITALS: BP 130/75; PULSE 71; RESP 20; TEMP 96.6; O2SAT 96
[2016-08-16] MEDS: FUROSEMIDE 20 MG TAB PO SCH (08:38)
[2016-08-16] MEDS: ASPIRIN EC 81 MG TABEC PO SCH (08:38)
[2016-08-16] MEDS: METOCLOPRAMIDE HCL 10 MG/2 ML VIAL IV PUSH SCH ×3 (08:38→16:37)
[2016-08-16] MEDS: LACTOBACILLUS ACIDOPHILUS TAB PO SCH ×2 (08:38→23:03)
[2016-08-16] MEDS: LISINOPRIL 10 MG TAB PO SCH (08:38)
[2016-08-16] MEDS: DOCUSATE SODIUM 50 MG/SENNA 8.6 MG TAB PO SCH ×2 (08:39→21:00)
[2016-08-16] MEDS: VANCOMYCIN 500 MG VIAL (FOR ORAL USE ONLY) PO SCH ×4 (08:40→23:03)
[2016-08-16] MEDS: ENOXAPARIN SODIUM 40 MG/0.4 ML SYRINGE SQ SCH (08:40)
[2016-08-16] MEDS: CALAMINE/PRAMOXINE LOTION 180 ML BTL TOPICAL SCH ×2 (08:40→23:09)
[2016-08-16] MEDS: MUPIROCIN 2% CREAM 15 GM TOPICAL SCH ×2 (08:40→23:09)
[2016-08-16] MEDS: SODIUM CHLORIDE 0.9% FLUSH 5 ML FLUSH FLUSH SCH ×2 (08:40→23:09)
[2016-08-16 11:21] LABS: TARGET CELLS 1+ (NORMAL)
[2016-08-16 11:22] LABS: SCAN/DIFF AUTO DIFF CONFIRMED
[2016-08-16] MEDS: DRONABINOL 5 MG CAP PO SCH ×2 (11:28→16:36)
[2016-08-16 12:15] VITALS: BP 126/60; PULSE 77; RESP 20; TEMP 96.5; O2SAT 97
[2016-08-16 16:00] VITALS: BP 130/63; PULSE 76; RESP 20; TEMP 98.6; O2SAT 96
[2016-08-16 20:00] VITALS: BP 123/79; PULSE 78; RESP 18; TEMP 97.2; O2SAT 96
[2016-08-16] MEDS: SERTRALINE HCL 100 MG TAB PO SCH (23:02)
[2016-08-16] MEDS: CETIRIZINE HCL 10 MG TAB PO SCH (23:03)
--- NOTE | 2016-08-16 23:35 | HHI.PR ---
Subjective Remarks patient seen today around 1 PM. Says she is feeling better than yesterday. Nausea is improved. Appetite somewhat better. Denies any chest pain or shortness of breath Objective Vital Signs Date Time Temp Pulse Resp B/P Pulse Ox O2 Delivery O2 Flow Rate FiO2 08/16/16 20:00 97.2 78 18 123/79 96 08/16/16 16:00 98.6 76 20 130/63 96 08/16/16 12:15 96.5 77 20 126/60 97 08/16/16 08:14 96.6 71 20 130/75 96 08/16/16 04:00 97.5 62 18 140/58 93 08/16/16 00:00 96.3 80 18 102/56 96 I/O 08/15/16 08/15/16 08/15/16 08/16/16 08/16/16 08/16/16 07:00 15:00 23:00 07:00 15:00 23:00 Intake Total 120 ml 120 ml 360 ml Balance 120 ml 120 ml 360 ml Intake Oral 120 ml 120 ml 360 ml # Voids 0 2 3 4 # Bowel Movements 1 1 2 Result Diagram: 08/16/16 0655 08/16/16 0655 Procedures No procedures. Objective Remarks GENERAL: sitting up in bed. Appears comfortable.aaox3. exam unchanged from yesterday SKIN: Warm and dry. HEAD: Normocephalic. EYES: No scleral icterus. No injection or drainage. NECK: Supple, trachea midline. Obese CARDIOVASCULAR: Regular rate and rhythm without murmurs, gallops, or rubs. RESPIRATORY: Breath sounds equal bilaterally. No accessory muscle use. GASTROINTESTINAL: Abdomen soft, non-tender, nondistended. no rebound or guarding MUSCULOSKELETAL: No cyanosis, or edema. 08/11previous sacral ulcer visualized and appears to be completely healed BACK: Nontender without obvious deformity. No CVA tenderness. A/P Assessment and Plan //C Difficile Diarrhea Improved Diarrhea, her Flagyl was discontinued but she had new C Diff test positive, started on Vancomycin 250 mg QID 07/26/16. Diarrhea resolved. - continue vancomycin. - repeat C diff PCR 08/06. Pt still has not had a bowel movement. - Started Leti-Colace 2 tabs twice a day -08/10. Patient will need to continue on vancomycin 42 day taper -08/12. patient still with abdominal pain, loose stools. Will increase vancomycin to 500 mg by mouth 4 times daily. =improving.continue by mouth vancomycin. continue to monitor bowel movements. //Generalized weakness The patient has been having hard time working with physical therapy secondary to pain. - Pain control. Add standing Toradol. Decrease [place]. - Rehabilitation efforts. - Advised patient to eat regular meals to improve energy level. Patient on regular diet now and able to have food from outside brought in = continue work with physical therapy. //nausea . //Poor appetite. = 08/15. Started Marinol. -08/16. Appears to have improved appetiteas well as nausea. Continue to monitor. //UTI - resolved. - Not on antibiotics at this time. //Sacral Pressure Ulcer Wound care consulted. - Barrier cream recommended, turn every 2 hours. = much improved. //Subclinical hypothyroidism The patient had abnormal thyroid function studies. - repeat function test in 4 to 6 weeks. //Radiculopathy of Lumbar region Numbness on the left anterior area of the thigh. TL spine MRI showed mild spinal stenosis at L3-4, moderate to moderate spinal stenosis at L4-5 and possibly with mild mass effect/impingement transiting left L5 nerve root with subarticular recess. Neurosurgery was consulted, ordered C-spine MRI which showed mild degenerative changes. - No intervention per NS. //OA Left hip x-ray showed moderate to severe left hip osteoarthritis with considerable osteophytosis and apparent large inferior joint body. MRI of the left hip ruled out osteomyelitis. Mild findings for Myelopathy. - Continue pain control, outpatient orthopedic follow-up is recommended. Toradol added 08/06. Decrease [place]. //Hypoglycemia/ Nausea. The pt has chronic nausea. - Ensure added. Diet: clears - Reglan IV with meals. - patient safety tech consult. - check fingersticks BID. -continue Zofran IV when necessary. -08/15. Add Marinol for appetite, nausea. Continue to monitor. //Bilateral Lower extremity Edema Chronic issue. Left worse than right. Bilateral Doppler ultrasound negative for DVT. - Continue MADIE hose and keep legs elevated. //Electrolyte derangement Hypokalemia and Hypomagnesemia replaced. - BMP 08/09 shows hypokalemia at 3.3, replaced with potassium by mouth 40 mEq 1 - continue to monitor. -08/14 -potassium replaced. Continue to monitor. =follow potassium. //DVT prophylaxis : Lovenox subcutaneously. Discharge Planning Awaiting placement. difficult placement due to C. difficile diarrhea. Appreciate case management assistance. Ede Shin MD Aug 16, 2016 23:35
[2016-08-17] VITALS: BP 126/77; PULSE 69; RESP 18; TEMP 97.4; O2SAT 96
[2016-08-17 04:00] VITALS: BP 146/66; PULSE 70; RESP 18; TEMP 97.2; O2SAT 94
[2016-08-17] MEDS: ACETAMINOPHEN/HYDROcodone 325 MG/5 MG TAB PO PRN ×3 (05:40→22:45)
[2016-08-17 08:11] VITALS: BP 135/65; PULSE 73; RESP 18; TEMP 96.2; O2SAT 95
[2016-08-17] MEDS: DOCUSATE SODIUM 50 MG/SENNA 8.6 MG TAB PO SCH ×2 (09:00→21:00)
[2016-08-17] MEDS: CALAMINE/PRAMOXINE LOTION 180 ML BTL TOPICAL SCH ×2 (09:00→21:00)
[2016-08-17] MEDS: SODIUM CHLORIDE 0.9% FLUSH 5 ML FLUSH FLUSH SCH ×2 (09:00→22:30)
[2016-08-17] MEDS: VANCOMYCIN 500 MG VIAL (FOR ORAL USE ONLY) PO SCH ×4 (10:31→22:29)
[2016-08-17] MEDS: LACTOBACILLUS ACIDOPHILUS TAB PO SCH ×2 (10:32→22:29)
[2016-08-17] MEDS: METOCLOPRAMIDE HCL 10 MG/2 ML VIAL IV PUSH SCH ×3 (10:32→16:27)
[2016-08-17] MEDS: ASPIRIN EC 81 MG TABEC PO SCH (10:32)
[2016-08-17] MEDS: ENOXAPARIN SODIUM 40 MG/0.4 ML SYRINGE SQ SCH (10:33)
[2016-08-17] MEDS: LISINOPRIL 10 MG TAB PO SCH (10:33)
[2016-08-17] MEDS: FUROSEMIDE 20 MG TAB PO SCH (10:33)
[2016-08-17] MEDS: MUPIROCIN 2% CREAM 15 GM TOPICAL SCH ×2 (10:34→22:31)
[2016-08-17 12:22] VITALS: BP 145/62; PULSE 74; RESP 18; TEMP 96.9; O2SAT 95
[2016-08-17] MEDS: DRONABINOL 5 MG CAP PO SCH ×2 (13:47→16:26)
[2016-08-17 16:17] VITALS: BP 122/68; PULSE 74; RESP 18; TEMP 97.1; O2SAT 94
[2016-08-17] MEDS: ONDANSETRON HCL 4 MG/2 ML VIAL IV PUSH PRN ×2 (16:27→22:56)
[2016-08-17] MEDS: hydrOXYzine HCL 25 MG TAB PO PRN ×2 (16:28→22:55)
[2016-08-17 20:21] VITALS: BP 128/62; PULSE 76; RESP 17; TEMP 96.6; O2SAT 92
[2016-08-17] MEDS: SERTRALINE HCL 100 MG TAB PO SCH (22:29)
[2016-08-17] MEDS: CETIRIZINE HCL 10 MG TAB PO SCH (22:29)
--- NOTE | 2016-08-17 23:54 | HHI.PR ---
Subjective Remarks patient seen this morning around 10 AM. Feels all right. Denies any chest pain or shortness of breath. Objective Vital Signs Date Time Temp Pulse Resp B/P Pulse Ox O2 Delivery O2 Flow Rate FiO2 08/17/16 20:21 96.6 76 17 128/62 92 08/17/16 16:17 97.1 74 18 122/68 94 08/17/16 12:22 96.9 74 18 145/62 95 08/17/16 08:11 96.2 73 18 135/65 95 08/17/16 04:00 97.2 70 18 146/66 94 08/17/16 00:00 97.4 69 18 126/77 96 I/O 08/16/16 08/16/16 08/16/16 08/17/16 08/17/16 08/17/16 07:00 15:00 23:00 07:00 15:00 23:00 Intake Total 360 ml 900 ml Balance 360 ml 900 ml Intake Oral 360 ml 900 ml # Voids 3 4 0 # Bowel Movements 2 1 Result Diagram: 08/16/1665408/16/16 0655 Procedures No procedures. Objective Remarks GENERAL: sitting up in bed. Appears comfortable.aaox3. SKIN: Warm and dry. HEAD: Normocephalic. EYES: No scleral icterus. No injection or drainage. NECK: Supple, trachea midline. Obese CARDIOVASCULAR: Regular rate and rhythm without murmurs, gallops, or rubs. RESPIRATORY: Breath sounds equal bilaterally. No accessory muscle use. GASTROINTESTINAL: Abdomen soft, non-tender, nondistended. no rebound or guarding MUSCULOSKELETAL: No cyanosis, or edema. 08/11previous sacral ulcer visualized and appears to be completely healed BACK: Nontender without obvious deformity. No CVA tenderness. A/P Assessment and Plan //C Difficile Diarrhea Improved Diarrhea, her Flagyl was discontinued but she had new C Diff test positive, started on Vancomycin 250 mg QID 07/26/16. Diarrhea resolved. - continue vancomycin. - repeat C diff PCR 08/06. Pt still has not had a bowel movement. - Started Leti-Colace 2 tabs twice a day -08/10. Patient will need to continue on vancomycin 42 day taper -08/12. patient still with abdominal pain, loose stools. Will increase vancomycin to 500 mg by mouth 4 times daily. =improving.continue by mouth vancomycin. continue to monitor bowel movements. //Generalized weakness The patient has been having hard time working with physical therapy secondary to pain. - Pain control. Add standing Toradol. Decrease [place]. - Rehabilitation efforts. - Advised patient to eat regular meals to improve energy level. Patient on regular diet now and able to have food from outside brought in = continue work with physical therapy. //nausea . //Poor appetite. = 08/15. Started Marinol. -08/16. Appears to have improved appetiteas well as nausea. Continue to monitor. //UTI - resolved. - Not on antibiotics at this time. //Sacral Pressure Ulcer Wound care consulted. - Barrier cream recommended, turn every 2 hours. = much improved. //Subclinical hypothyroidism The patient had abnormal thyroid function studies. - repeat function test in 4 to 6 weeks. //Radiculopathy of Lumbar region Numbness on the left anterior area of the thigh. TL spine MRI showed mild spinal stenosis at L3-4, moderate to moderate spinal stenosis at L4-5 and possibly with mild mass effect/impingement transiting left L5 nerve root with subarticular recess. Neurosurgery was consulted, ordered C-spine MRI which showed mild degenerative changes. - No intervention per NS. //OA Left hip x-ray showed moderate to severe left hip osteoarthritis with considerable osteophytosis and apparent large inferior joint body. MRI of the left hip ruled out osteomyelitis. Mild findings for Myelopathy. - Continue pain control, outpatient orthopedic follow-up is recommended. Toradol added 08/06. Decrease [place]. //Hypoglycemia/ Nausea. The pt has chronic nausea. - Ensure added. Diet: clears - Reglan IV with meals. - cook school cafeteria consult. - check fingersticks BID. -continue Zofran IV when necessary. -08/15. Add Marinol for appetite, nausea. Continue to monitor. //Bilateral Lower extremity Edema Chronic issue. Left worse than right. Bilateral Doppler ultrasound negative for DVT. - Continue MADIE hose and keep legs elevated. //Electrolyte derangement Hypokalemia and Hypomagnesemia replaced. - BMP 08/09 shows hypokalemia at 3.3, replaced with potassium by mouth 40 mEq 1 - continue to monitor. -08/14 -potassium replaced. Continue to monitor. =follow potassium. //DVT prophylaxis : Lovenox subcutaneously. Discharge Planning Awaiting placement. difficult placement due to C. difficile diarrhea. we'll need negative testing 2. Appreciate case management assistance. Ede Shin MD Aug 17, 2016 23:54 Ede Shin MD Aug 17, 2016 23:54
[2016-08-18 00:15] VITALS: BP 112/54; PULSE 80; RESP 18; TEMP 97.8; O2SAT 94
[2016-08-18 04:54] VITALS: BP 126/64; PULSE 76; RESP 20; TEMP 96.2; O2SAT 94
[2016-08-18 08:25] VITALS: BP 127/60; PULSE 75; RESP 19; TEMP 96.7; O2SAT 94
[2016-08-18] MEDS: CALAMINE/PRAMOXINE LOTION 180 ML BTL TOPICAL SCH ×2 (09:00→21:00)
[2016-08-18] MEDS: DOCUSATE SODIUM 50 MG/SENNA 8.6 MG TAB PO SCH ×2 (09:00→21:39)
[2016-08-18] MEDS: VANCOMYCIN 500 MG VIAL (FOR ORAL USE ONLY) PO SCH ×4 (09:48→21:37)
[2016-08-18] MEDS: ONDANSETRON HCL 4 MG/2 ML VIAL IV PUSH PRN ×2 (09:48→17:53)
[2016-08-18] MEDS: METOCLOPRAMIDE HCL 10 MG/2 ML VIAL IV PUSH SCH ×3 (09:48→17:53)
[2016-08-18] MEDS: FUROSEMIDE 20 MG TAB PO SCH (09:49)
[2016-08-18] MEDS: ASPIRIN EC 81 MG TABEC PO SCH (09:49)
[2016-08-18] MEDS: LISINOPRIL 10 MG TAB PO SCH (09:49)
[2016-08-18] MEDS: hydrOXYzine HCL 25 MG TAB PO PRN ×2 (09:49→18:03)
[2016-08-18] MEDS: LACTOBACILLUS ACIDOPHILUS TAB PO SCH ×2 (09:49→21:37)
[2016-08-18] MEDS: MUPIROCIN 2% CREAM 15 GM TOPICAL SCH ×2 (09:50→21:43)
[2016-08-18] MEDS: ACETAMINOPHEN/HYDROcodone 325 MG/5 MG TAB PO PRN ×2 (09:50→17:54)
[2016-08-18] MEDS: ENOXAPARIN SODIUM 40 MG/0.4 ML SYRINGE SQ SCH (09:50)
[2016-08-18] MEDS: SODIUM CHLORIDE 0.9% FLUSH 5 ML FLUSH FLUSH SCH ×2 (09:57→21:00)
[2016-08-18 11:00] VITALS: BP 130/63; PULSE 73; RESP 16; TEMP 97.6
--- NOTE | 2016-08-18 11:35 | HHI.PR ---
Subjective Remarks This is a pleasant 70 y/o Female with Morbid Obesity, Hypertension, who came on 06/07/16 after fall at home has been in a Wheelchair for the last 6 months, increased weakness, recently discharged home with PT returned to ER on 06/26/16 with persistent diffuse lower extremity weakness, has also OA, Anxiety disorder. 08/18 stable in her bedroom discussed with patient and nurse, no new issues continue awaiting for placement. Objective Vital Signs Date Time Temp Pulse Resp B/P Pulse Ox O2 Delivery O2 Flow Rate FiO2 08/18/16 08:25 96.7 75 19 127/60 94 08/18/16 04:54 96.2 76 20 126/64 94 08/18/16 00:15 97.8 80 18 112/54 94 08/17/16 20:21 96.6 76 17 128/62 92 08/17/16 16:17 97.1 74 18 122/68 94 08/17/16 12:22 96.9 74 18 145/62 95 I/O 08/17/16 08/17/16 08/17/16 08/18/16 08/18/16 08/18/16 07:00 15:00 23:00 07:00 15:00 23:00 Intake Total 900 ml Balance 900 ml Intake Oral 900 ml # Voids 0 0 # Bowel Movements 1 0 Result Diagram: 08/16/16 0655 08/16/16 0655 Imaging Last Impressions Hip MRI 07/05/16 0000 Signed Impressions: Service Date/Time: Tuesday, July 05, 2016 10:51 - CONCLUSION: 1. There is osteopenia primary degenerative changes at both hips, left greater than right. 2. Prominent osteophyte along the inferior articulating surface of the proximal left femur. 3. Nonspecific edema in the gluteus and hamstring muscles. 4. No acute bony fracture. Javier Fishman MD Lower Extremity Ultrasound 06/29/16 0000 Signed Impressions: Service Date/Time: Wednesday, June 29, 2016 10:07 - CONCLUSION: Negative for deep venous thrombosis. Alfredo Sanders MD FACR Cervical Spine MRI 06/27/16 0000 Signed Impressions: Service Date/Time: Monday, June 27, 2016 11:09 - CONCLUSION: Mild degenerative changes otherwise unremarkable cervical spine. Anselmo Leavitt MD Thoracic Spine MRI 06/25/16 0000 Signed Impressions: Service Date/Time: June 19:36 - CONCLUSION: 1. No fracture or subluxation of the thoracic spine. 2. Mild and fairly diffuse degenerative changes as above. 3. Mild left foraminal encroachment at T8/T9 and T9/T10. 4. No significant spinal stenosis at any level. 5. Incidentally seen tiny right and small left pleural effusions, nonspecific. Jeevan Arreola MD Lumbar Spine MRI 06/25/16 0000 Signed Impressions: Service Date/Time: June 19:36 - CONCLUSION: 1. Multilevel lumbar degenerative changes as detailed above. 2. Mild spinal stenosis at L3/L4 without evidence of transiting nerve root impingement. 3. Mild to moderate spinal stenosis at L4/L5 and possibly with mild mass effect/impingement on the transiting left L5 nerve root within the subarticular recess. 4. Mild bilateral foraminal encroachment L3/L4 and L4/L5. Mild to moderate bilateral foraminal encroachment at L5/S1. 5. No fracture or subluxation of the lumbar spine. Jeevan Arreola MD Hip and Pelvis X-Ray 06/25/16 0000 Signed Impressions: Service Date/Time: June 20:27 - CONCLUSION: Moderate to severe left hip' right is with considerable osteophytosis and an apparent large inferior joint body. No fracture or subluxation. Jeevan Arreola MD Chest X-Ray 06/23/16 1402 Signed Impressions: Service Date/Time: Thursday, June 23, 2016 14:13 - CONCLUSION: Normal examination. Elías Moreno MD Procedures No procedures. Other Results Laboratory Tests Test 08/16/16 06:55 White Blood Count 8.1 TH/MM3 Red Blood Count 3.65 MIL/MM3 Hemoglobin 10.5 GM/DL Hematocrit 30.3 % Mean Corpuscular Volume 83.2 FL Mean Corpuscular Hemoglobin 28.8 PG Mean Corpuscular Hemoglobin 34.6 % Concent Red Cell Distribution Width 17.0 % Platelet Count 230 TH/MM3 Mean Platelet Volume 10.0 FL Neutrophils (%) (Auto) 57.0 % Lymphocytes (%) (Auto) 21.0 % Monocytes (%) (Auto) 9.0 % Eosinophils (%) (Auto) 12.3 % Basophils (%) (Auto) 0.7 % Neutrophils # (Auto) 4.6 TH/MM3 Lymphocytes # (Auto) 1.7 TH/MM3 Monocytes # (Auto) 0.7 TH/MM3 Eosinophils # (Auto) 1.0 TH/MM3 Basophils # (Auto) 0.1 TH/MM3 CBC Comment AUTO DIFF Differential Comment AUTO DIFF CONFIRMED Target Cells 1+ Hematology Comments Sodium Level 139 MEQ/L Potassium Level 3.5 MEQ/L Chloride Level 101 MEQ/L Carbon Dioxide Level 28.4 MEQ/L Anion Gap 10 MEQ/L Blood Urea Nitrogen 18 MG/DL Creatinine 1.07 MG/DL Estimat Glomerular Filtration 51 ML/MIN Rate Random Glucose 90 MG/DL Calcium Level 8.6 MG/DL Objective Remarks GENERAL: Well-developed. Morbidly obese. In no acute distress. SKIN: Warm and dry. Improving erythema back areas. Erythema on sacral area but no ulcer. HEENT: Normocephalic. Pupils equal and round. Mucous membranes pink and moist. CARDIOVASCULAR: Regular rate and rhythm. No murmur RESPIRATORY: clear to auscultation, no wheezing or crackles. GASTROINTESTINAL: Abdomen soft, non-tender, nondistended. Bowel sounds x4. MUSCULOSKELETAL:No clubbing cyanosis or edema. NEUROLOGICAL: Awake and alert. No focal neurological deficits. PSYCHIATRIC: Appropriate mood and affect; insight and judgment normal. Medications and IVs Current Medications Medications (Trade) Dose Ordered Sig/Alhaji Route Start Time Stop Time Status Last Admin (NS Flush) 2 ml UNSCH PRN FLUSH 06/23/16 20:00 07/25/16 18:44 (NS Flush) 2 ml BID FLUSH 06/23/16 21:00 08/18/16 09:57 (Lovenox Inj) 40 mg Q24H SQ 06/24/16 09:00 08/18/16 09:50 (Narcan Inj) 0.4 mg UNSCH PRN IV 06/23/16 20:00 (Norvasc) 10 mg DAILY PO 06/24/16 10:00 08/18/16 09:49 (Ecotrin Ec) 81 mg DAILY PO 06/25/16 09:00 08/18/16 09:49 (Lasix) 20 mg DAILY PO 06/25/16 09:00 08/18/16 09:49 (Zoloft) 200 mg HS PO 06/24/16 21:00 08/17/16 22:29 (Tylenol) 650 mg Q6H PRN PO 06/26/16 16:15 ([place] 5-325 Mg) 1 tab Q4H PRN PO 06/26/16 16:15 08/18/16 09:50 (Caladryl Lotion) 1 applic Q12HR TOPICAL 06/27/16 09:00 08/16/16 23:09 (ZyrTEC) 10 mg HS PO 06/29/16 21:00 08/17/16 22:29 (Lactinex) 1 tab Q12HR PO 07/04/16 21:00 08/18/16 09:49 (Zofran Inj) 4 mg Q6H PRN IV PUSH 07/07/16 13:45 08/18/16 09:48 (Atarax) 50 mg Q6H PRN PO 07/08/16 18:15 08/18/16 09:49 (Pepcid) 10 mg BID PO 07/09/16 21:00 Hold 07/23/16 08:56 (Pill Splitter) 1 ea UNSCH PRN OTHER 07/09/16 15:45 07/11/16 08:23 (Bactroban 2% Cream) 1 applic Q12HR TOPICAL 07/13/16 13:30 08/18/16 09:50 (Reglan Inj) 5 mg TIDAC IV PUSH 08/07/16 17:00 08/18/16 09:48 (Leti-Colace) 2 tab BID PO 08/09/16 12:15 08/18/16 09:00 (VANCOMYCIN for oral use only) 500 mg QID PO 08/12/16 18:00 08/18/16 09:48 (Prinivil) 10 mg DAILY PO 08/14/16 09:00 08/18/16 09:49 (Marinol) 5 mg BID@11,16 PO 08/15/16 16:00 08/17/16 16:26 A/P Assessment and Plan 1. C Difficile Diarrhea Improved Diarrhea, her Flagyl was discontinued but she had new C Diff test positive on July 18, started on Vancomycin 250 mg QID started on 07/27/16 increased to 500 mg QID, recommended to continue Vancomycin for 42 days taper dose already complete the first seven days on this medicine I will switch to Vancomycin by mouth 250 mg every 12 hours for seven days will be 08/19 through 08/25 Then 250 mg daily for seven days 08/26 until 09/01 Then 250 mg QOD for seven days 09/02 until 09/08 Then 250 mg every third day for seven days 09/09 until 09/15 will get a new C Diff test now. 2. Total Self-care deficit will need SNF at discharge. Generalized weakness, continue PT and OT. 3. Nausea poor appetite on Marinol. improving slowly. 4. UTI Improved 5. Sacral Pressure Ulcer, wound care consulted, Barrier cream recommended turn every 2 hours. 6. OA chronic stable, Left hip x ray showed moderate to severe left hip OA with considerable osteophytosis and apparent large inferior joint body. MRI of the left hip ruled out osteomyelitis, Mild findings of Myelopathy, continue pain control, outpatient orthopedic follow up is recommended, Toradol added 08/06, decreased [place]. 7. Subclinical Hypothyroidism had abnormal thyroid function studies to repeat function test 4 to 6 weeks. 8. Radiculopathy of Lumbar region. numbness on the Left anterior area of the thigh. TL spine MRI showed mild spinal stenosis at L3-4, moderate to moderate spinal stenosis at L4-5 and possibly with mild mass effect/impingement transiting left L5 nerve root with subarticular recess. Neurosurgery was consulted, ordered C-spine MRI which showed mild degenerative changes. Dr. Carballo discussed the case with Dr. Dennison, no intervention needed Left hip x-ray showed moderate to severe left hip osteoarthritis with considerable osteophytosis and apparent large inferior joint body. Continue pain control with oral [place], outpatient orthopedic follow-up is recommended. MRI of the left hip ruled out osteomyelitis. Mild findings for Myelopathy, 9. Bilateral Lower extremity Edema chronic issues, Left worse than right. Bilateral Doppler ultrasound negative for DVT. Continue MADIE hose. 10. Electrolyte derangement Hypokalemia replaced and Hypomagnesemia replaced. //DVT prophylaxis : Lovenox subcutaneously. Discharge Planning Awaiting for placement. is been difficult due to C Diff positive needs to be negative x 2. Gamaliel Bueno MD Aug 18, 2016 11:35
[2016-08-18] MEDS: DRONABINOL 5 MG CAP PO SCH ×2 (11:37→17:52)
[2016-08-18 16:00] VITALS: BP 113/61; PULSE 72; RESP 18; TEMP 96; O2SAT 97
[2016-08-18 21:02] VITALS: BP 117/53; PULSE 78; RESP 19; TEMP 97.1; O2SAT 94
[2016-08-18] MEDS: SERTRALINE HCL 100 MG TAB PO SCH (21:37)
[2016-08-18] MEDS: CETIRIZINE HCL 10 MG TAB PO SCH (21:37)
[2016-08-19 00:20] VITALS: BP 113/57; PULSE 82; RESP 20; TEMP 96.2; O2SAT 96
[2016-08-19] MEDS: ONDANSETRON HCL 4 MG/2 ML VIAL IV PUSH PRN ×2 (05:36→21:52)
[2016-08-19] MEDS: ACETAMINOPHEN/HYDROcodone 325 MG/5 MG TAB PO PRN ×2 (05:36→21:52)
[2016-08-19 06:19] VITALS: BP 121/71; PULSE 79; RESP 17; TEMP 96.5; O2SAT 93
[2016-08-19 08:59] VITALS: BP 120/65; PULSE 78; RESP 16; TEMP 96.7; O2SAT 94
[2016-08-19] MEDS: LACTOBACILLUS ACIDOPHILUS TAB PO SCH ×2 (09:52→21:53)
[2016-08-19] MEDS: LISINOPRIL 10 MG TAB PO SCH (09:52)
[2016-08-19] MEDS: FUROSEMIDE 20 MG TAB PO SCH (09:52)
[2016-08-19] MEDS: ASPIRIN EC 81 MG TABEC PO SCH (09:52)
[2016-08-19] MEDS: DOCUSATE SODIUM 50 MG/SENNA 8.6 MG TAB PO SCH ×2 (09:52→21:00)
--- NOTE | 2016-08-19 09:52 | HHI.PR ---
Subjective Remarks This is a pleasant 70 y/o Female with Morbid Obesity, Hypertension, who came on 06/07/16 after fall at home has been in a Wheelchair for the last 6 months, increased weakness, recently discharged home with PT returned to ER on 06/26/16 with persistent diffuse lower extremity weakness, has also OA, Anxiety disorder. 08/18 stable in her bedroom discussed with patient and nurse, no new issues continue awaiting for placement. 08/19 Seen in her bedroom, discussed with nurse Miss Martin no new issues, no nausea, vomit or diarrhea her Vancomycin was placed on Titration management, and asked for new C Diff test. Objective Vital Signs Date Time Temp Pulse Resp B/P Pulse Ox O2 Delivery O2 Flow Rate FiO2 08/19/16 08:59 96.7 78 16 120/65 94 08/19/16 06:36 16 08/19/16 06:19 96.5 79 17 121/71 93 08/19/16 00:20 96.2 82 20 113/57 96 08/18/16 21:02 97.1 78 19 117/53 94 08/18/16 16:00 96.0 72 18 113/61 97 08/18/16 11:00 97.6 73 16 130/63 I/O 08/18/16 08/18/16 08/18/16 08/19/16 08/19/16 08/19/16 07:00 15:00 23:00 07:00 15:00 23:00 Intake Total 480 ml Balance 480 ml Intake Oral 480 ml # Voids 0 0 # Bowel Movements 0 0 Result Diagram: 08/16/16 0655 08/16/16 0655 Imaging Last Impressions Hip MRI 07/05/16 0000 Signed Impressions: Service Date/Time: Tuesday, July 05, 2016 10:51 - CONCLUSION: 1. There is osteopenia primary degenerative changes at both hips, left greater than right. 2. Prominent osteophyte along the inferior articulating surface of the proximal left femur. 3. Nonspecific edema in the gluteus and hamstring muscles. 4. No acute bony fracture. Javier Fishman MD Lower Extremity Ultrasound 06/29/16 0000 Signed Impressions: Service Date/Time: Wednesday, June 29, 2016 10:07 - CONCLUSION: Negative for deep venous thrombosis. Alfredo Sanders MD FACR Cervical Spine MRI 06/27/16 0000 Signed Impressions: Service Date/Time: Monday, June 27, 2016 11:09 - CONCLUSION: Mild degenerative changes otherwise unremarkable cervical spine. Anselmo Leavitt MD Thoracic Spine MRI 06/25/16 0000 Signed Impressions: Service Date/Time: June 19:36 - CONCLUSION: 1. No fracture or subluxation of the thoracic spine. 2. Mild and fairly diffuse degenerative changes as above. 3. Mild left foraminal encroachment at T8/T9 and T9/T10. 4. No significant spinal stenosis at any level. 5. Incidentally seen tiny right and small left pleural effusions, nonspecific. Jeevan Arreola MD Lumbar Spine MRI 06/25/16 0000 Signed Impressions: Service Date/Time: June 19:36 - CONCLUSION: 1. Multilevel lumbar degenerative changes as detailed above. 2. Mild spinal stenosis at L3/L4 without evidence of transiting nerve root impingement. 3. Mild to moderate spinal stenosis at L4/L5 and possibly with mild mass effect/impingement on the transiting left L5 nerve root within the subarticular recess. 4. Mild bilateral foraminal encroachment L3/L4 and L4/L5. Mild to moderate bilateral foraminal encroachment at L5/S1. 5. No fracture or subluxation of the lumbar spine. Jeevan Arreola MD Hip and Pelvis X-Ray 06/25/16 0000 Signed Impressions: Service Date/Time: June 20:27 - CONCLUSION: Moderate to severe left hip' right is with considerable osteophytosis and an apparent large inferior joint body. No fracture or subluxation. Jeevan Arreola MD Chest X-Ray 06/23/16 1402 Signed Impressions: Service Date/Time: Thursday, June 23, 2016 14:13 - CONCLUSION: Normal examination. Elías Moreno MD Procedures No procedures. Other Results Laboratory Tests Test 08/16/16 06:55 White Blood Count 8.1 TH/MM3 Red Blood Count 3.65 MIL/MM3 Hemoglobin 10.5 GM/DL Hematocrit 30.3 % Mean Corpuscular Volume 83.2 FL Mean Corpuscular Hemoglobin 28.8 PG Mean Corpuscular Hemoglobin 34.6 % Concent Red Cell Distribution Width 17.0 % Platelet Count 230 TH/MM3 Mean Platelet Volume 10.0 FL Neutrophils (%) (Auto) 57.0 % Lymphocytes (%) (Auto) 21.0 % Monocytes (%) (Auto) 9.0 % Eosinophils (%) (Auto) 12.3 % Basophils (%) (Auto) 0.7 % Neutrophils # (Auto) 4.6 TH/MM3 Lymphocytes # (Auto) 1.7 TH/MM3 Monocytes # (Auto) 0.7 TH/MM3 Eosinophils # (Auto) 1.0 TH/MM3 Basophils # (Auto) 0.1 TH/MM3 CBC Comment AUTO DIFF Differential Comment AUTO DIFF CONFIRMED Target Cells 1+ Hematology Comments Sodium Level 139 MEQ/L Potassium Level 3.5 MEQ/L Chloride Level 101 MEQ/L Carbon Dioxide Level 28.4 MEQ/L Anion Gap 10 MEQ/L Blood Urea Nitrogen 18 MG/DL Creatinine 1.07 MG/DL Estimat Glomerular Filtration 51 ML/MIN Rate Random Glucose 90 MG/DL Calcium Level 8.6 MG/DL Objective Remarks GENERAL: Well-developed. Morbidly obese. In no acute distress. SKIN: Warm and dry. Improving erythema back areas. Erythema on sacral area but no ulcer. HEENT: Normocephalic. Pupils equal and round. Mucous membranes pink and moist. CARDIOVASCULAR: Regular rate and rhythm. No murmur RESPIRATORY: clear to auscultation, no wheezing or crackles. GASTROINTESTINAL: Abdomen soft, non-tender, nondistended. Bowel sounds x4. abdominal rash present MUSCULOSKELETAL:No clubbing cyanosis or edema. NEUROLOGICAL: Awake and alert. No focal neurological deficits. PSYCHIATRIC: Appropriate mood and affect; insight and judgment normal. Medications and IVs Current Medications Medications (Trade) Dose Ordered Sig/Alhaji Route Start Time Stop Time Status Last Admin (NS Flush) 2 ml UNSCH PRN FLUSH 06/23/16 20:00 07/25/16 18:44 (NS Flush) 2 ml BID FLUSH 06/23/16 21:00 08/18/16 21:00 (Lovenox Inj) 40 mg Q24H SQ 06/24/16 09:00 08/18/16 09:50 (Narcan Inj) 0.4 mg UNSCH PRN IV 06/23/16 20:00 (Norvasc) 10 mg DAILY PO 06/24/16 10:00 08/18/16 09:49 (Ecotrin Ec) 81 mg DAILY PO 06/25/16 09:00 08/18/16 09:49 (Lasix) 20 mg DAILY PO 06/25/16 09:00 08/18/16 09:49 (Zoloft) 200 mg HS PO 06/24/16 21:00 08/18/16 21:37 (Tylenol) 650 mg Q6H PRN PO 06/26/16 16:15 ([place] 5-325 Mg) 1 tab Q4H PRN PO 06/26/16 16:15 08/19/16 05:36 (Caladryl Lotion) 1 applic Q12HR TOPICAL 06/27/16 09:00 08/16/16 23:09 (ZyrTEC) 10 mg HS PO 06/29/16 21:00 08/18/16 21:37 (Lactinex) 1 tab Q12HR PO 07/04/16 21:00 08/18/16 21:37 (Zofran Inj) 4 mg Q6H PRN IV PUSH 07/07/16 13:45 08/19/16 05:36 (Atarax) 50 mg Q6H PRN PO 07/08/16 18:15 08/18/16 18:03 (Pepcid) 10 mg BID PO 07/09/16 21:00 Hold 07/23/16 08:56 (Pill Splitter) 1 ea UNSCH PRN OTHER 07/09/16 15:45 07/11/16 08:23 (Bactroban 2% Cream) 1 applic Q12HR TOPICAL 07/13/16 13:30 08/18/16 21:43 (Reglan Inj) 5 mg TIDAC IV PUSH 08/07/16 17:00 08/18/16 17:53 (Leti-Colace) 2 tab BID PO 08/09/16 12:15 08/18/16 21:39 (Prinivil) 10 mg DAILY PO 08/14/16 09:00 08/18/16 09:49 (Marinol) 5 mg BID@11,16 PO 08/15/16 16:00 08/18/16 17:52 (VANCOMYCIN for oral use only) 250 mg Q12HR PO 08/19/16 09:00 A/P Assessment and Plan 1. C Difficile Diarrhea Improved Diarrhea, her Flagyl was discontinued but she had new C Diff test positive on July 18, started on Vancomycin 250 mg QID started on 07/27/16 increased to 500 mg QID, recommended to continue Vancomycin for 42 days taper dose already complete the first seven days on this medicine I will switch to Vancomycin by mouth 250 mg every 12 hours for seven days will be 08/19 through 08/25 Then 250 mg daily for seven days 08/26 until 09/01 Then 250 mg QOD for seven days 09/02 until 09/08 Then 250 mg every third day for seven days 09/09 until 09/15 will get a new C Diff test now. 2. Total Self-care deficit will need SNF at discharge. Generalized weakness, continue PT and OT. 3. Nausea poor appetite on Marinol. improving slowly. 4. UTI Improved 5. Sacral Pressure Ulcer, wound care consulted, Barrier cream recommended turn every 2 hours. 6. OA chronic stable, Left hip x ray showed moderate to severe left hip OA with considerable osteophytosis and apparent large inferior joint body. MRI of the left hip ruled out osteomyelitis, Mild findings of Myelopathy, continue pain control, outpatient orthopedic follow up is recommended, Toradol added 08/06, decreased [place]. 7. Subclinical Hypothyroidism had abnormal thyroid function studies to repeat function test 4 to 6 weeks. 8. Radiculopathy of Lumbar region. numbness on the Left anterior area of the thigh. TL spine MRI showed mild spinal stenosis at L3-4, moderate to moderate spinal stenosis at L4-5 and possibly with mild mass effect/impingement transiting left L5 nerve root with subarticular recess. Neurosurgery was consulted, ordered C-spine MRI which showed mild degenerative changes. Dr. Carballo discussed the case with Dr. Dennison, no intervention needed Left hip x-ray showed moderate to severe left hip osteoarthritis with considerable osteophytosis and apparent large inferior joint body. Continue pain control with oral [place], outpatient orthopedic follow-up is recommended. MRI of the left hip ruled out osteomyelitis. Mild findings for Myelopathy, 9. Bilateral Lower extremity Edema chronic issues, Left worse than right. Bilateral Doppler ultrasound negative for DVT. Continue MADIE hose. 10. Electrolyte derangement Hypokalemia replaced and Hypomagnesemia replaced. 11. Abdominal rash stable refusing her medicine. //DVT prophylaxis : Lovenox subcutaneously. Discharge Planning Awaiting for placement. is been difficult due to C Diff positive needs to be negative x 2. Gamaliel Bueno MD Aug 19, 2016 09:52
[2016-08-19] MEDS: VANCOMYCIN 500 MG VIAL (FOR ORAL USE ONLY) PO SCH ×2 (09:53→21:53)
[2016-08-19] MEDS: CALAMINE/PRAMOXINE LOTION 180 ML BTL TOPICAL SCH ×2 (09:53→21:00)
[2016-08-19] MEDS: MUPIROCIN 2% CREAM 15 GM TOPICAL SCH ×2 (09:53→21:00)
[2016-08-19] MEDS: ENOXAPARIN SODIUM 40 MG/0.4 ML SYRINGE SQ SCH (09:53)
[2016-08-19] MEDS: SODIUM CHLORIDE 0.9% FLUSH 5 ML FLUSH FLUSH SCH ×2 (09:53→21:00)
[2016-08-19] MEDS: METOCLOPRAMIDE HCL 10 MG/2 ML VIAL IV PUSH SCH ×3 (09:54→16:14)
[2016-08-19] MEDS: DRONABINOL 5 MG CAP PO SCH ×2 (11:41→16:14)
[2016-08-19] MEDS: hydrOXYzine HCL 25 MG TAB PO PRN ×2 (11:42→21:52)
[2016-08-19 12:45] VITALS: BP 114/64; PULSE 69; RESP 16; TEMP 96.5; O2SAT 96
[2016-08-19 14:27] LABS: C. DIFF EPI 027 PRESUMPTIVE NEGATIVE (NEGATIVE)
[2016-08-19 14:57] LABS: C. DIFF TOXIN PCR POSITIVE (NEGATIVE)
[2016-08-19 16:00] VITALS: BP 119/58; PULSE 74; RESP 16; TEMP 96.5; O2SAT 97
[2016-08-19 20:00] VITALS: BP 112/56; PULSE 75; RESP 18; TEMP 97; O2SAT 92
[2016-08-19] MEDS: SERTRALINE HCL 100 MG TAB PO SCH (21:53)
[2016-08-19] MEDS: CETIRIZINE HCL 10 MG TAB PO SCH (21:53)
[2016-08-20] VITALS (7 sets, daily range): BP systolic 97–133; BP diastolic 55–62; PULSE 70–75; RESP 16–18; TEMP 96.1–97.4; O2SAT 93–96
[2016-08-20] MEDS: hydrOXYzine HCL 25 MG TAB PO PRN ×3 (04:46→22:15)
[2016-08-20] MEDS: ACETAMINOPHEN/HYDROcodone 325 MG/5 MG TAB PO PRN ×3 (04:46→22:16)
--- NOTE | 2016-08-20 07:55 | HHI.PR ---
Subjective Remarks This is a pleasant 70 y/o Female with Morbid Obesity, Hypertension, who came on 06/07/16 after fall at home has been in a Wheelchair for the last 6 months, increased weakness, recently discharged home with PT returned to ER on 06/26/16 with persistent diffuse lower extremity weakness, has also OA, Anxiety disorder. 08/18 stable in her bedroom discussed with patient and nurse, no new issues continue awaiting for placement. 08/19 Seen in her bedroom, discussed with nurse Miss Martin no new issues, no nausea, vomit or diarrhea her Vancomycin was placed on Titration management, and asked for new C Diff test. 08/20 seen in her bedroom and discussed with nurse Miss Martin her C Diff test came back positive again after she was since July 27 on Vancomycin by mouth 250 mg QID, may need Fidaxomicin, asked for ID specialist consult. has Nausea, but no vomit or diarrhea. Objective Vital Signs Date Time Temp Pulse Resp B/P Pulse Ox O2 Delivery O2 Flow Rate FiO2 08/20/16 04:00 96.7 70 18 115/60 93 08/20/16 00:00 96.2 70 18 118/59 95 08/19/16 20:00 97.0 75 18 112/56 92 08/19/16 16:00 96.5 74 16 119/58 97 08/19/16 12:45 96.5 69 16 114/64 96 08/19/16 08:59 96.7 78 16 120/65 94 I/O 08/19/16 08/19/16 08/19/16 08/20/16 08/20/16 08/20/16 07:00 15:00 23:00 07:00 15:00 23:00 Intake Total 360 ml 0 ml Balance 360 ml 0 ml Intake Oral 360 ml 0 ml # Voids 3 1 # Bowel Movements 4 2 Result Diagram: 08/16/16 0655 08/16/16 0655 Imaging Last Impressions Hip MRI 07/05/16 0000 Signed Impressions: Service Date/Time: Tuesday, July 05, 2016 10:51 - CONCLUSION: 1. There is osteopenia primary degenerative changes at both hips, left greater than right. 2. Prominent osteophyte along the inferior articulating surface of the proximal left femur. 3. Nonspecific edema in the gluteus and hamstring muscles. 4. No acute bony fracture. Javier J. Siragusa, MD Lower Extremity Ultrasound 06/29/16 0000 Signed Impressions: Service Date/Time: Wednesday, June 29, 2016 10:07 - CONCLUSION: Negative for deep venous thrombosis. Alfredo Sanders MD FACR Cervical Spine MRI 06/27/16 0000 Signed Impressions: Service Date/Time: Monday, June 27, 2016 11:09 - CONCLUSION: Mild degenerative changes otherwise unremarkable cervical spine. Anselmo Leavitt MD Thoracic Spine MRI 06/25/16 0000 Signed Impressions: Service Date/Time: June 19:36 - CONCLUSION: 1. No fracture or subluxation of the thoracic spine. 2. Mild and fairly diffuse degenerative changes as above. 3. Mild left foraminal encroachment at T8/T9 and T9/T10. 4. No significant spinal stenosis at any level. 5. Incidentally seen tiny right and small left pleural effusions, nonspecific. Jeevan Arreola MD Lumbar Spine MRI 06/25/16 0000 Signed Impressions: Service Date/Time: June 19:36 - CONCLUSION: 1. Multilevel lumbar degenerative changes as detailed above. 2. Mild spinal stenosis at L3/L4 without evidence of transiting nerve root impingement. 3. Mild to moderate spinal stenosis at L4/L5 and possibly with mild mass effect/impingement on the transiting left L5 nerve root within the subarticular recess. 4. Mild bilateral foraminal encroachment L3/L4 and L4/L5. Mild to moderate bilateral foraminal encroachment at L5/S1. 5. No fracture or subluxation of the lumbar spine. Jeevan Arreola MD Hip and Pelvis X-Ray 06/25/16 0000 Signed Impressions: Service Date/Time: June 20:27 - CONCLUSION: Moderate to severe left hip' right is with considerable osteophytosis and an apparent large inferior joint body. No fracture or subluxation. Jeevan Arreola MD Chest X-Ray 06/23/16 1402 Signed Impressions: Service Date/Time: Thursday, June 23, 2016 14:13 - CONCLUSION: Normal examination. Elías Moreno MD Procedures No procedures. Other Results Laboratory Tests Test 08/16/16 08/19/16 06:55 13:15 White Blood Count 8.1 TH/MM3 Red Blood Count 3.65 MIL/MM3 Hemoglobin 10.5 GM/DL Hematocrit 30.3 % Mean Corpuscular Volume 83.2 FL Mean Corpuscular Hemoglobin 28.8 PG Mean Corpuscular Hemoglobin 34.6 % Concent Red Cell Distribution Width 17.0 % Platelet Count 230 TH/MM3 Mean Platelet Volume 10.0 FL Neutrophils (%) (Auto) 57.0 % Lymphocytes (%) (Auto) 21.0 % Monocytes (%) (Auto) 9.0 % Eosinophils (%) (Auto) 12.3 % Basophils (%) (Auto) 0.7 % Neutrophils # (Auto) 4.6 TH/MM3 Lymphocytes # (Auto) 1.7 TH/MM3 Monocytes # (Auto) 0.7 TH/MM3 Eosinophils # (Auto) 1.0 TH/MM3 Basophils # (Auto) 0.1 TH/MM3 CBC Comment AUTO DIFF Differential Comment AUTO DIFF CONFIRMED Target Cells 1+ Hematology Comments Sodium Level 139 MEQ/L Potassium Level 3.5 MEQ/L Chloride Level 101 MEQ/L Carbon Dioxide Level 28.4 MEQ/L Anion Gap 10 MEQ/L Blood Urea Nitrogen 18 MG/DL Creatinine 1.07 MG/DL Estimat Glomerular Filtration 51 ML/MIN Rate Random Glucose 90 MG/DL Calcium Level 8.6 MG/DL Stool C. difficile Toxin (PCR) POSITIVE Stl C. difficile Toxin PRESUMPTIVE Epiderm 027 NEGATIVE Objective Remarks GENERAL: Well-developed. Morbidly obese. In no acute distress. SKIN: Warm and dry. Improving erythema back areas. Erythema on sacral area but no ulcer. HEENT: Normocephalic. Pupils equal and round. Mucous membranes pink and moist. CARDIOVASCULAR: Regular rate and rhythm. No murmur RESPIRATORY: clear to auscultation, no wheezing or crackles. GASTROINTESTINAL: Abdomen soft, non-tender, nondistended. Bowel sounds x4. abdominal rash present MUSCULOSKELETAL:No clubbing cyanosis or edema. NEUROLOGICAL: Awake and alert. No focal neurological deficits. PSYCHIATRIC: Appropriate mood and affect; insight and judgment normal. Medications and IVs Current Medications Medications (Trade) Dose Ordered Sig/Alhaji Route Start Time Stop Time Status Last Admin (NS Flush) 2 ml UNSCH PRN FLUSH 06/23/16 20:00 07/25/16 18:44 (NS Flush) 2 ml BID FLUSH 06/23/16 21:00 08/19/16 21:00 (Lovenox Inj) 40 mg Q24H SQ 06/24/16 09:00 08/19/16 09:53 (Narcan Inj) 0.4 mg UNSCH PRN IV 06/23/16 20:00 (Norvasc) 10 mg DAILY PO 06/24/16 10:00 08/19/16 09:53 (Ecotrin Ec) 81 mg DAILY PO 06/25/16 09:00 08/19/16 09:52 (Lasix) 20 mg DAILY PO 06/25/16 09:00 08/19/16 09:52 (Zoloft) 200 mg HS PO 06/24/16 21:00 08/19/16 21:53 (Tylenol) 650 mg Q6H PRN PO 06/26/16 16:15 (Lucas 5-325 Mg) 1 tab Q4H PRN PO 06/26/16 16:15 08/20/16 04:46 (Caladryl Lotion) 1 applic Q12HR TOPICAL 06/27/16 09:00 08/19/16 09:53 (ZyrTEC) 10 mg HS PO 06/29/16 21:00 08/19/16 21:53 (Lactinex) 1 tab Q12HR PO 07/04/16 21:00 08/19/16 21:53 (Zofran Inj) 4 mg Q6H PRN IV PUSH 07/07/16 13:45 08/19/16 21:52 (Atarax) 50 mg Q6H PRN PO 07/08/16 18:15 08/20/16 04:46 (Pepcid) 10 mg BID PO 07/09/16 21:00 Hold 07/23/16 08:56 (Pill Splitter) 1 ea UNSCH PRN OTHER 07/09/16 15:45 07/11/16 08:23 (Bactroban 2% Cream) 1 applic Q12HR TOPICAL 07/13/16 13:30 08/19/16 09:53 (Reglan Inj) 5 mg TIDAC IV PUSH 08/07/16 17:00 08/19/16 16:14 (Leti-Colace) 2 tab BID PO 08/09/16 12:15 08/19/16 09:52 (Prinivil) 10 mg DAILY PO 08/14/16 09:00 08/19/16 09:52 (Marinol) 5 mg BID@11,16 PO 08/15/16 16:00 08/19/16 16:14 (VANCOMYCIN for oral use only) 250 mg Q12HR PO 08/19/16 09:00 08/19/16 21:53 A/P Assessment and Plan 1. C Difficile Diarrhea Improved Diarrhea, her Flagyl was discontinued but she had new C Diff test positive on July 18, started on Vancomycin 250 mg QID started on 07/27/16 increased to 500 mg QID, recommended to continue Vancomycin for 42 days taper dose already complete the first seven days on this medicine I will switch to Vancomycin by mouth was continued her titrated oral dosages of Vancomycin and new C Diff test is positive, asked for ID specialist consult. 2. Total Self-care deficit will need SNF at discharge. Generalized weakness, continue PT and OT. 3. Nausea poor appetite on Marinol. improving slowly. 4. UTI Improved 5. Sacral Pressure Ulcer, wound care consulted, Barrier cream recommended turn every 2 hours. 6. OA chronic stable, Left hip x ray showed moderate to severe left hip OA with considerable osteophytosis and apparent large inferior joint body. MRI of the left hip ruled out osteomyelitis, Mild findings of Myelopathy, continue pain control, outpatient orthopedic follow up is recommended, Toradol added 08/06, decreased Lucas. 7. Subclinical Hypothyroidism had abnormal thyroid function studies to repeat function test 4 to 6 weeks. 8. Radiculopathy of Lumbar region. numbness on the Left anterior area of the thigh. TL spine MRI showed mild spinal stenosis at L3-4, moderate to moderate spinal stenosis at L4-5 and possibly with mild mass effect/impingement transiting left L5 nerve root with subarticular recess. Neurosurgery was consulted, ordered C-spine MRI which showed mild degenerative changes. Dr. Carballo discussed the case with Dr. Dennison, no intervention needed Left hip x-ray showed moderate to severe left hip osteoarthritis with considerable osteophytosis and apparent large inferior joint body. Continue pain control with oral Lucas, outpatient orthopedic follow-up is recommended. MRI of the left hip ruled out osteomyelitis. Mild findings for Myelopathy, 9. Bilateral Lower extremity Edema chronic issues, Left worse than right. Bilateral Doppler ultrasound negative for DVT. Continue MADIE hose. 10. Electrolyte derangement Hypokalemia replaced and Hypomagnesemia replaced. 11. Abdominal rash stable refusing her medicine. //DVT prophylaxis : Lovenox subcutaneously. discussed with patient and nurse in the room. Discussed with Patient's Daughter Miss Rut Trujillo to the phone number [phone] all questions answered to the best of my abilities. Discharge Planning Awaiting for placement. is been difficult due to C Diff positive needs to be negative x 2. Gamaliel Bueno MD Aug 20, 2016 07:55
[2016-08-20] MEDS: DOCUSATE SODIUM 50 MG/SENNA 8.6 MG TAB PO SCH (09:00)
[2016-08-20] MEDS: CALAMINE/PRAMOXINE LOTION 180 ML BTL TOPICAL SCH ×2 (09:00→21:00)
[2016-08-20] MEDS: ONDANSETRON HCL 4 MG/2 ML VIAL IV PUSH PRN ×3 (09:46→22:16)
[2016-08-20] MEDS: METOCLOPRAMIDE HCL 10 MG/2 ML VIAL IV PUSH SCH ×3 (09:46→16:42)
[2016-08-20] MEDS: LISINOPRIL 10 MG TAB PO SCH (09:46)
[2016-08-20] MEDS: ASPIRIN EC 81 MG TABEC PO SCH (09:46)
[2016-08-20] MEDS: LACTOBACILLUS ACIDOPHILUS TAB PO SCH ×2 (09:46→21:00)
[2016-08-20] MEDS: VANCOMYCIN 500 MG VIAL (FOR ORAL USE ONLY) PO SCH (09:46)
[2016-08-20] MEDS: FUROSEMIDE 20 MG TAB PO SCH (09:46)
[2016-08-20] MEDS: MUPIROCIN 2% CREAM 15 GM TOPICAL SCH ×2 (09:47→21:00)
[2016-08-20] MEDS: SODIUM CHLORIDE 0.9% FLUSH 5 ML FLUSH FLUSH SCH ×2 (09:47→21:00)
[2016-08-20] MEDS: ENOXAPARIN SODIUM 40 MG/0.4 ML SYRINGE SQ SCH (09:47)
[2016-08-20] MEDS: DRONABINOL 5 MG CAP PO SCH ×2 (12:32→16:42)
[2016-08-20] MEDS ORDERED: VANCOMYCIN 500 MG VIAL (FOR ORAL USE ONLY) PO SCH (18:00)
--- NOTE | 2016-08-20 20:51 | MB ---
cc: MARIANGEL CHILD MD DATE OF CONSULTATION 08/20/[address] Cortes REASON FOR CONSULTATION Not improving C-difficile infection. HISTORY OF PRESENT ILLNESS This is a 70-year-old white female who was admitted to the hospital on 06/23/2016. The patient presented with weakness of two weeks duration and she had fallen at home. The patient has been wheelchair-bound. She was evaluated and admitted to the hospital for treatment. Part of her workup included workup for diarrhea with C-difficile toxin on 07/03 which came back positive. The patient has been receiving treatment for the C-difficile colitis with initially Flagyl and vancomycin p.o. Prior to the C-difficile colitis she received antibiotics in the form of ceftriaxone and Levaquin between 06/23 and 06/24 and then nitrofurantoin was given on 06/24 and she developed a rash and the nitrofurantoin discontinued. She also received Bactrim from 06/28 to 07/08 and also Keflex from 06/28 to 07/08. She was started on Flagyl on 07/04 and that was continued up until 07/18 and also she was put on vancomycin on 07/26. The repeated stool C-difficile test was positive on 07/18, 08/09 and again on 08/19. Her latest antibiotic for C-difficile has been vancomycin which she has been receiving since 08/12 four times a day. The patient's nurse reports to me that she has four bowel movements a day and it is not completely watery, but it is not formed. She denies abdominal cramping or abdominal pain. She is afebrile. The patient is noted to have radiculopathy of the lumbar region. PAST MEDICAL HISTORY 1. Hypertension, 2. Arthritis 3. Anxiety 4. Gastric bypass, 5. Cholecystectomy, 6. Appendectomy 7. x2 ALLERGIES CODEINE MACROBID DEMEROL MEDICATIONS 1. Vancomycin oral. 2. Marinol 3. Prinivil 4. Leti-Colace 5. Reglan 6. Lactinex 7. Atarax. 8. Zofran. 9. Zyrtec. 10. [place] five p.r.n. 11. Aspirin. 12. Lasix. 13. Zoloft. 14. Norvasc. 15. Lovenox. SOCIAL HISTORY No tobacco, positive alcohol use. No illicit drugs. FAMILY HISTORY Noncontributory. REVIEW OF SYSTEMS Negative on 10-point review. PHYSICAL EXAMINATION GENERAL: This is a morbidly obese male who is in no acute distress. She is awake and alert and oriented. VITAL SIGNS: Temperature 96.6, blood pressure 118/58, respirations 16, heart rate 74. HEENT: Extraocular movements grossly intact, pupils reactive to light. No icterus. Oropharynx no visible lesions. NECK: Supple. No adenopathy. LUNGS: Clear. HEART: Regular rate and rhythm without murmurs or rubs or gallops. ABDOMEN: Obese, soft, no tenderness appreciated. RECTAL: Not performed. EXTREMITIES: No clubbing, cyanosis or edema. SKIN: No rash. NEUROLOGIC: Nonfocal. LABORATORY DATA WBC 8.1, platelet count is 230, 57% neutrophils. 21% lymphocytes, 9% monocytes, creatinine 1.07, BUN 18, sodium 139. IMPRESSION C-difficile colitis, Persistent. Poor response to prior antibiotic treatment for the C-difficile. RECOMMENDATIONS 1. Discontinue vancomycin 2. Begin Dificid and give a 10-day course of the Dificid and monitor the response. Monitor the patient's stool output. 3. Discontinue Leti-Colace. Thank you for this consultation. Monitor the patient's response to the Dificid and please reconsult if further input is needed. Mariangel Child MD FD/ /6:33 PM /8:30 PM [facility]
[2016-08-20] MEDS: FIDAXOMICIN 200 MG TAB PO SCH (22:13)
[2016-08-20] MEDS: SERTRALINE HCL 100 MG TAB PO SCH (22:15)
[2016-08-20] MEDS: CETIRIZINE HCL 10 MG TAB PO SCH (22:15)
[2016-08-21] VITALS: BP 118/58; PULSE 71; RESP 18; TEMP 96.2; O2SAT 95
[2016-08-21 04:00] VITALS: BP 121/62; PULSE 71; RESP 18; TEMP 96.2; O2SAT 96
[2016-08-21 08:00] VITALS: BP 112/55; PULSE 70; RESP 18; TEMP 96.2; O2SAT 93
[2016-08-21] MEDS: SODIUM CHLORIDE 0.9% FLUSH 5 ML FLUSH FLUSH SCH ×2 (09:00→21:00)
[2016-08-21] MEDS: CALAMINE/PRAMOXINE LOTION 180 ML BTL TOPICAL SCH ×2 (09:00→21:00)
[2016-08-21] MEDS: METOCLOPRAMIDE HCL 10 MG/2 ML VIAL IV PUSH SCH ×3 (09:24→17:00)
[2016-08-21] MEDS: FIDAXOMICIN 200 MG TAB PO SCH ×2 (09:24→21:36)
[2016-08-21] MEDS: LACTOBACILLUS ACIDOPHILUS TAB PO SCH ×2 (09:24→21:36)
[2016-08-21] MEDS: LISINOPRIL 10 MG TAB PO SCH (09:24)
[2016-08-21] MEDS: FUROSEMIDE 20 MG TAB PO SCH (09:25)
[2016-08-21] MEDS: ENOXAPARIN SODIUM 40 MG/0.4 ML SYRINGE SQ SCH (09:25)
[2016-08-21] MEDS: ASPIRIN EC 81 MG TABEC PO SCH (09:25)
[2016-08-21] MEDS: MUPIROCIN 2% CREAM 15 GM TOPICAL SCH ×2 (09:26→21:00)
[2016-08-21] MEDS: ONDANSETRON HCL 4 MG/2 ML VIAL IV PUSH PRN ×2 (09:38→21:36)
--- NOTE | 2016-08-21 10:51 | HHI.PR ---
Subjective Remarks This is a pleasant 70 y/o Female with Morbid Obesity, Hypertension, who came on 06/07/16 after fall at home has been in a Wheelchair for the last 6 months, increased weakness, recently discharged home with PT returned to ER on 06/26/16 with persistent diffuse lower extremity weakness, has also OA, Anxiety disorder. 08/18 stable in her bedroom discussed with patient and nurse, no new issues continue awaiting for placement. 08/19 Seen in her bedroom, discussed with nurse Miss Martin no new issues, no nausea, vomit or diarrhea her Vancomycin was placed on Titration management, and asked for new C Diff test. 08/20 seen in her bedroom and discussed with nurse Miss Martin her C Diff test came back positive again after she was since July 27 on Vancomycin by mouth 250 mg QID, may need Fidaxomicin, asked for ID specialist consult. 08/21 seen in her bedroom stable no Nausea, vomit or diarrhea. seen by ID specialist and started on Fidaxomicin Objective Vital Signs Date Time Temp Pulse Resp B/P Pulse Ox O2 Delivery O2 Flow Rate FiO2 08/21/16 08:00 96.2 70 18 112/55 93 08/21/16 04:00 96.2 71 18 121/62 96 08/21/16 00:00 96.2 71 18 118/58 95 08/20/16 20:00 96.1 75 18 117/55 95 08/20/16 19:30 97.3 74 18 97/61 95 08/20/16 17:56 96.6 74 16 118/58 94 08/20/16 12:44 97.0 70 16 133/62 96 I/O 08/20/16 08/20/16 08/20/16 08/21/16 08/21/16 08/21/16 07:00 15:00 23:00 07:00 15:00 23:00 Intake Total 0 ml 360 ml Balance 0 ml 360 ml Intake Oral 0 ml 360 ml # Voids 1 1 1 2 # Bowel Movements 2 Imaging Last Impressions Hip MRI 07/05/16 0000 Signed Impressions: Service Date/Time: Tuesday, July 05, 2016 10:51 - CONCLUSION: 1. There is osteopenia primary degenerative changes at both hips, left greater than right. 2. Prominent osteophyte along the inferior articulating surface of the proximal left femur. 3. Nonspecific edema in the gluteus and hamstring muscles. 4. No acute bony fracture. Javier Fishman MD Lower Extremity Ultrasound 06/29/16 0000 Signed Impressions: Service Date/Time: Wednesday, June 29, 2016 10:07 - CONCLUSION: Negative for deep venous thrombosis. Alfredo Sanders MD FACR Cervical Spine MRI 06/27/16 0000 Signed Impressions: Service Date/Time: Monday, June 27, 2016 11:09 - CONCLUSION: Mild degenerative changes otherwise unremarkable cervical spine. Anselmo Leavitt MD Thoracic Spine MRI 06/25/16 0000 Signed Impressions: Service Date/Time: June 19:36 - CONCLUSION: 1. No fracture or subluxation of the thoracic spine. 2. Mild and fairly diffuse degenerative changes as above. 3. Mild left foraminal encroachment at T8/T9 and T9/T10. 4. No significant spinal stenosis at any level. 5. Incidentally seen tiny right and small left pleural effusions, nonspecific. Jeevan Arreola MD Lumbar Spine MRI 06/25/16 0000 Signed Impressions: Service Date/Time: June 19:36 - CONCLUSION: 1. Multilevel lumbar degenerative changes as detailed above. 2. Mild spinal stenosis at L3/L4 without evidence of transiting nerve root impingement. 3. Mild to moderate spinal stenosis at L4/L5 and possibly with mild mass effect/impingement on the transiting left L5 nerve root within the subarticular recess. 4. Mild bilateral foraminal encroachment L3/L4 and L4/L5. Mild to moderate bilateral foraminal encroachment at L5/S1. 5. No fracture or subluxation of the lumbar spine. Jeevan Arreola MD Hip and Pelvis X-Ray 06/25/16 0000 Signed Impressions: Service Date/Time: June 20:27 - CONCLUSION: Moderate to severe left hip' right is with considerable osteophytosis and an apparent large inferior joint body. No fracture or subluxation. Jeevan Arreola MD Chest X-Ray 06/23/16 1402 Signed Impressions: Service Date/Time: Thursday, June 23, 2016 14:13 - CONCLUSION: Normal examination. Elías Moreno MD Procedures No procedures. Other Results Laboratory Tests Test 08/19/16 13:15 Stool C. difficile Toxin (PCR) POSITIVE Stl C. difficile Toxin PRESUMPTIVE Epiderm 027 NEGATIVE Objective Remarks GENERAL: Well-developed. Morbidly obese. In no acute distress. SKIN: Warm and dry. Improving erythema back areas. Erythema on sacral area but no ulcer. HEENT: Normocephalic. Pupils equal and round. Mucous membranes pink and moist. CARDIOVASCULAR: Regular rate and rhythm. No murmur RESPIRATORY: clear to auscultation, no wheezing or crackles. GASTROINTESTINAL: Abdomen soft, non-tender, nondistended. Bowel sounds x4. abdominal rash present MUSCULOSKELETAL:No clubbing cyanosis or edema. NEUROLOGICAL: Awake and alert. No focal neurological deficits. PSYCHIATRIC: Appropriate mood and affect; insight and judgment normal. Medications and IVs Current Medications Medications (Trade) Dose Ordered Sig/Alhaji Route Start Time Stop Time Status Last Admin (NS Flush) 2 ml UNSCH PRN FLUSH 06/23/16 20:00 07/25/16 18:44 (NS Flush) 2 ml BID FLUSH 06/23/16 21:00 08/21/16 09:00 (Lovenox Inj) 40 mg Q24H SQ 06/24/16 09:00 08/21/16 09:25 (Narcan Inj) 0.4 mg UNSCH PRN IV 06/23/16 20:00 (Norvasc) 10 mg DAILY PO 06/24/16 10:00 08/21/16 09:25 (Ecotrin Ec) 81 mg DAILY PO 06/25/16 09:00 08/21/16 09:25 (Lasix) 20 mg DAILY PO 06/25/16 09:00 08/21/16 09:25 (Zoloft) 200 mg HS PO 06/24/16 21:00 08/20/16 22:15 (Tylenol) 650 mg Q6H PRN PO 06/26/16 16:15 ([place] 5-325 Mg) 1 tab Q4H PRN PO 06/26/16 16:15 08/20/16 22:16 (Caladryl Lotion) 1 applic Q12HR TOPICAL 06/27/16 09:00 08/20/16 21:00 (ZyrTEC) 10 mg HS PO 06/29/16 21:00 08/20/16 22:15 (Lactinex) 1 tab Q12HR PO 07/04/16 21:00 08/21/16 09:24 (Zofran Inj) 4 mg Q6H PRN IV PUSH 07/07/16 13:45 08/21/16 09:38 (Atarax) 50 mg Q6H PRN PO 07/08/16 18:15 08/20/16 22:15 (Pepcid) 10 mg BID PO 07/09/16 21:00 Hold 07/23/16 08:56 (Pill Splitter) 1 ea UNSCH PRN OTHER 07/09/16 15:45 07/11/16 08:23 (Bactroban 2% Cream) 1 applic Q12HR TOPICAL 07/13/16 13:30 08/21/16 09:26 (Reglan Inj) 5 mg TIDAC IV PUSH 08/07/16 17:00 08/21/16 09:24 (Elti-Colace) 2 tab BID PO 08/09/16 12:15 Hold 08/19/16 09:52 (Prinivil) 10 mg DAILY PO 08/14/16 09:00 08/21/16 09:24 (Marinol) 5 mg BID@11,16 PO 08/15/16 16:00 08/20/16 16:42 (Dificid) 200 mg BID PO 08/20/16 21:00 08/30/16 20:59 08/21/16 09:24 A/P Assessment and Plan 1. C Difficile Diarrhea Improved Diarrhea, her Flagyl was discontinued but she had new C Diff test positive on July 18, since that time she is been on Metronidazole and Vancomycin she was started on Vancomycin 250 mg QID then increased to 500 mg QID after performed a new C Diff, she had positive test on 07/15, 07/18, 08/09 and 08/19 asked for ID specialist who started the patient on Fidaxomicin. 2. Total Self-care deficit will need SNF at discharge. Generalized weakness, continue PT and OT. 3. Nausea poor appetite on Marinol. improving slowly. 4. UTI Improved 5. Sacral Pressure Ulcer, wound care consulted, Barrier cream recommended turn every 2 hours. 6. OA chronic stable, Left hip x ray showed moderate to severe left hip OA with considerable osteophytosis and apparent large inferior joint body. MRI of the left hip ruled out osteomyelitis, Mild findings of Myelopathy, continue pain control, outpatient orthopedic follow up is recommended, Toradol added 08/06, decreased [place]. 7. Subclinical Hypothyroidism had abnormal thyroid function studies to repeat function test 4 to 6 weeks. 8. Radiculopathy of Lumbar region. numbness on the Left anterior area of the thigh. TL spine MRI showed mild spinal stenosis at L3-4, moderate to moderate spinal stenosis at L4-5 and possibly with mild mass effect/impingement transiting left L5 nerve root with subarticular recess. Neurosurgery was consulted, ordered C-spine MRI which showed mild degenerative changes. Dr. Carballo discussed the case with Dr. Dennison, no intervention needed Left hip x-ray showed moderate to severe left hip osteoarthritis with considerable osteophytosis and apparent large inferior joint body. Continue pain control with oral [place], outpatient orthopedic follow-up is recommended. MRI of the left hip ruled out osteomyelitis. Mild findings for Myelopathy, 9. Bilateral Lower extremity Edema chronic issues, Left worse than right. Bilateral Doppler ultrasound negative for DVT. Continue MADIE hose. 10. Electrolyte derangement Hypokalemia replaced and Hypomagnesemia replaced. 11. Abdominal rash stable refusing her medicine. //DVT prophylaxis : Lovenox subcutaneously. discussed with patient in the room. Discharge Planning Awaiting for placement. is been difficult due to C Diff positive needs to be negative x 2. Gamaliel Bueno MD Aug 21, 2016 10:51 negative x 2. Gamaliel Bueno MD Aug 21, 2016 10:51
[2016-08-21] MEDS: DRONABINOL 5 MG CAP PO SCH ×2 (11:00→16:00)
[2016-08-21 12:00] VITALS: BP 105/63; PULSE 74; RESP 20; TEMP 96.3; O2SAT 94
[2016-08-21 16:00] VITALS: BP 102/58; PULSE 76; RESP 16; TEMP 96.1; O2SAT 96
[2016-08-21 20:00] VITALS: BP 115/56; PULSE 80; RESP 20; TEMP 97.1; O2SAT 94
[2016-08-21] MEDS: ACETAMINOPHEN/HYDROcodone 325 MG/5 MG TAB PO PRN (21:36)
[2016-08-21] MEDS: CETIRIZINE HCL 10 MG TAB PO SCH (21:36)
[2016-08-21] MEDS: SERTRALINE HCL 100 MG TAB PO SCH (21:36)
[2016-08-21] MEDS: hydrOXYzine HCL 25 MG TAB PO PRN (21:37)
[2016-08-22] VITALS: BP 117/58; PULSE 76; RESP 20; TEMP 97; O2SAT 95
[2016-08-22 04:00] VITALS: BP 117/62; PULSE 77; RESP 20; TEMP 97; O2SAT 93
[2016-08-22 08:59] VITALS: BP 106/61; PULSE 73; RESP 16; TEMP 96.1; O2SAT 94
[2016-08-22] MEDS: LISINOPRIL 10 MG TAB PO SCH (09:00)
[2016-08-22] MEDS: METOCLOPRAMIDE HCL 10 MG/2 ML VIAL IV PUSH SCH ×3 (09:41→16:28)
[2016-08-22] MEDS: LACTOBACILLUS ACIDOPHILUS TAB PO SCH ×2 (09:44→22:38)
[2016-08-22] MEDS: SODIUM CHLORIDE 0.9% FLUSH 5 ML FLUSH FLUSH SCH ×2 (09:44→21:00)
[2016-08-22] MEDS: ACETAMINOPHEN/HYDROcodone 325 MG/5 MG TAB PO PRN ×2 (09:44→22:40)
[2016-08-22] MEDS: FIDAXOMICIN 200 MG TAB PO SCH ×2 (09:45→22:38)
[2016-08-22] MEDS: ASPIRIN EC 81 MG TABEC PO SCH (09:46)
[2016-08-22] MEDS: FUROSEMIDE 20 MG TAB PO SCH (09:46)
[2016-08-22] MEDS: ENOXAPARIN SODIUM 40 MG/0.4 ML SYRINGE SQ SCH (09:47)
[2016-08-22] MEDS: hydrOXYzine HCL 25 MG TAB PO PRN (09:47)
[2016-08-22] MEDS: MUPIROCIN 2% CREAM 15 GM TOPICAL SCH ×2 (09:48→22:40)
[2016-08-22] MEDS: CALAMINE/PRAMOXINE LOTION 180 ML BTL TOPICAL SCH ×2 (09:48→22:40)
[2016-08-22] MEDS: DRONABINOL 5 MG CAP PO SCH ×2 (12:16→16:28)
[2016-08-22 13:23] VITALS: BP 120/59; PULSE 73; RESP 16; TEMP 96.3; O2SAT 94
--- NOTE | 2016-08-22 15:47 | HHI.PR ---
Subjective Remarks This is a pleasant 70 y/o Female with Morbid Obesity, Hypertension, who came on 06/07/16 after fall at home has been in a Wheelchair for the last 6 months, increased weakness, recently discharged home with PT returned to ER on 06/26/16 with persistent diffuse lower extremity weakness, has also OA, Anxiety disorder. 08/18 stable in her bedroom discussed with patient and nurse, no new issues continue awaiting for placement. 08/19 Seen in her bedroom, discussed with nurse Miss Martin no new issues, no nausea, vomit or diarrhea her Vancomycin was placed on Titration management, and asked for new C Diff test. 08/20 seen in her bedroom and discussed with nurse Miss Martin her C Diff test came back positive again after she was since July 27 on Vancomycin by mouth 250 mg QID, may need Fidaxomicin, asked for ID specialist consult. 08/21 seen in her bedroom stable. seen by ID specialist and started on Fidaxomicin 08/22 seen in her bedroom in the presence of nurse Miss Hargrove had three bowel movements today. some Nausea no vomit. Objective Vital Signs Date Time Temp Pulse Resp B/P Pulse Ox O2 Delivery O2 Flow Rate FiO2 08/22/16 13:23 96.3 73 16 120/59 94 08/22/16 08:59 96.1 73 16 106/61 94 08/22/16 04:00 97.0 77 20 117/62 93 08/22/16 00:00 97.0 76 20 117/58 95 08/21/16 20:00 97.1 80 20 115/56 94 08/21/16 16:00 96.1 76 16 102/58 96 I/O 08/21/16 08/21/16 08/21/16 08/22/16 08/22/16 08/22/16 07:00 15:00 23:00 07:00 15:00 23:00 Intake Total 360 ml Balance 360 ml Intake Oral 360 ml # Voids 2 2 1 2 2 # Bowel Movements 2 1 2 2 Imaging Last Impressions Hip MRI 07/05/16 0000 Signed Impressions: Service Date/Time: Tuesday, July 05, 2016 10:51 - CONCLUSION: 1. There is osteopenia primary degenerative changes at both hips, left greater than right. 2. Prominent osteophyte along the inferior articulating surface of the proximal left femur. 3. Nonspecific edema in the gluteus and hamstring muscles. 4. No acute bony fracture. Javier Fishman MD Lower Extremity Ultrasound 06/29/16 0000 Signed Impressions: Service Date/Time: Wednesday, June 29, 2016 10:07 - CONCLUSION: Negative for deep venous thrombosis. Alfredo Sanders MD FACR Cervical Spine MRI 06/27/16 0000 Signed Impressions: Service Date/Time: Monday, June 27, 2016 11:09 - CONCLUSION: Mild degenerative changes otherwise unremarkable cervical spine. Anselmo Leavitt MD Thoracic Spine MRI 06/25/16 0000 Signed Impressions: Service Date/Time: June 19:36 - CONCLUSION: 1. No fracture or subluxation of the thoracic spine. 2. Mild and fairly diffuse degenerative changes as above. 3. Mild left foraminal encroachment at T8/T9 and T9/T10. 4. No significant spinal stenosis at any level. 5. Incidentally seen tiny right and small left pleural effusions, nonspecific. Jeevan Arreola MD Lumbar Spine MRI 06/25/16 0000 Signed Impressions: Service Date/Time: June 19:36 - CONCLUSION: 1. Multilevel lumbar degenerative changes as detailed above. 2. Mild spinal stenosis at L3/L4 without evidence of transiting nerve root impingement. 3. Mild to moderate spinal stenosis at L4/L5 and possibly with mild mass effect/impingement on the transiting left L5 nerve root within the subarticular recess. 4. Mild bilateral foraminal encroachment L3/L4 and L4/L5. Mild to moderate bilateral foraminal encroachment at L5/S1. 5. No fracture or subluxation of the lumbar spine. Jeevan Arreola MD Hip and Pelvis X-Ray 06/25/16 0000 Signed Impressions: Service Date/Time: June 20:27 - CONCLUSION: Moderate to severe left hip' right is with considerable osteophytosis and an apparent large inferior joint body. No fracture or subluxation. Jeevan Arreola MD Chest X-Ray 06/23/16 1402 Signed Impressions: Service Date/Time: Thursday, June 23, 2016 14:13 - CONCLUSION: Normal examination. Elías Moreno MD Procedures No procedures. Other Results Laboratory Tests Test 08/19/16 13:15 Stool C. difficile Toxin (PCR) POSITIVE Stl C. difficile Toxin PRESUMPTIVE Epiderm 027 NEGATIVE Objective Remarks GENERAL: Well-developed. Morbidly obese. In no acute distress. SKIN: Warm and dry. Improving erythema back areas. Erythema on sacral area but no ulcer. HEENT: Normocephalic. Pupils equal and round. Mucous membranes pink and moist. CARDIOVASCULAR: Regular rate and rhythm. No murmur RESPIRATORY: clear to auscultation, no wheezing or crackles. GASTROINTESTINAL: Abdomen soft, non-tender, nondistended. Bowel sounds x4. abdominal rash present MUSCULOSKELETAL:No clubbing cyanosis or edema. NEUROLOGICAL: Awake and alert. No focal neurological deficits. PSYCHIATRIC: Appropriate mood and affect; insight and judgment normal. Medications and IVs Current Medications Medications (Trade) Dose Ordered Sig/Alhaji Route Start Time Stop Time Status Last Admin (NS Flush) 2 ml UNSCH PRN FLUSH 06/23/16 20:00 07/25/16 18:44 (NS Flush) 2 ml BID FLUSH 06/23/16 21:00 08/22/16 09:44 (Lovenox Inj) 40 mg Q24H SQ 06/24/16 09:00 08/22/16 09:47 (Narcan Inj) 0.4 mg UNSCH PRN IV 06/23/16 20:00 (Norvasc) 10 mg DAILY PO 06/24/16 10:00 08/21/16 09:25 (Ecotrin Ec) 81 mg DAILY PO 06/25/16 09:00 08/22/16 09:46 (Lasix) 20 mg DAILY PO 06/25/16 09:00 08/22/16 09:46 (Zoloft) 200 mg HS PO 06/24/16 21:00 08/21/16 21:36 (Tylenol) 650 mg Q6H PRN PO 06/26/16 16:15 (Cresson 5-325 Mg) 1 tab Q4H PRN PO 06/26/16 16:15 08/22/16 09:44 (Caladryl Lotion) 1 applic Q12HR TOPICAL 06/27/16 09:00 08/22/16 09:48 (ZyrTEC) 10 mg HS PO 06/29/16 21:00 08/21/16 21:36 (Lactinex) 1 tab Q12HR PO 07/04/16 21:00 08/22/16 09:44 (Zofran Inj) 4 mg Q6H PRN IV PUSH 07/07/16 13:45 08/21/16 21:36 (Atarax) 50 mg Q6H PRN PO 07/08/16 18:15 08/22/16 09:47 (Pepcid) 10 mg BID PO 07/09/16 21:00 Hold 07/23/16 08:56 (Pill Splitter) 1 ea UNSCH PRN OTHER 07/09/16 15:45 07/11/16 08:23 (Bactroban 2% Cream) 1 applic Q12HR TOPICAL 07/13/16 13:30 08/22/16 09:48 (Reglan Inj) 5 mg TIDAC IV PUSH 08/07/16 17:00 08/22/16 12:16 (Leti-Colace) 2 tab BID PO 08/09/16 12:15 Hold 08/19/16 09:52 (Prinivil) 10 mg DAILY PO 08/14/16 09:00 08/21/16 09:24 (Marinol) 5 mg BID@11,16 PO 08/15/16 16:00 08/22/16 12:16 (Dificid) 200 mg BID PO 08/20/16 21:00 08/30/16 20:59 08/22/16 09:45 A/P Assessment and Plan 1. C Difficile Diarrhea Improved Diarrhea, her Flagyl was discontinued but she had new C Diff test positive on July 18, since that time she is been on Metronidazole and Vancomycin she was started on Vancomycin 250 mg QID then increased to 500 mg QID after performed a new C Diff, she had positive test on 07/15, 07/18, 08/09 and 08/19 asked for ID specialist who started the patient on Fidaxomicin. 2. Total Self-care deficit will need SNF at discharge. Generalized weakness, continue PT and OT. 3. Nausea poor appetite on Marinol. improving slowly. 4. UTI Improved 5. Sacral Pressure Ulcer, wound care consulted, Barrier cream recommended turn every 2 hours. 6. OA chronic stable, Left hip x ray showed moderate to severe left hip OA with considerable osteophytosis and apparent large inferior joint body. MRI of the left hip ruled out osteomyelitis, Mild findings of Myelopathy, continue pain control, outpatient orthopedic follow up is recommended, Toradol added 08/06, decreased Cresson. 7. Subclinical Hypothyroidism had abnormal thyroid function studies to repeat function test 4 to 6 weeks. 8. Radiculopathy of Lumbar region. numbness on the Left anterior area of the thigh. TL spine MRI showed mild spinal stenosis at L3-4, moderate to moderate spinal stenosis at L4-5 and possibly with mild mass effect/impingement transiting left L5 nerve root with subarticular recess. Neurosurgery was consulted, ordered C-spine MRI which showed mild degenerative changes. Dr. Carballo discussed the case with Dr. Dennison, no intervention needed Left hip x-ray showed moderate to severe left hip osteoarthritis with considerable osteophytosis and apparent large inferior joint body. Continue pain control with oral Cresson, outpatient orthopedic follow-up is recommended. MRI of the left hip ruled out osteomyelitis. Mild findings for Myelopathy, 9. Bilateral Lower extremity Edema chronic issues, Left worse than right. Bilateral Doppler ultrasound negative for DVT. Continue MADIE hose. 10. Electrolyte derangement Hypokalemia replaced and Hypomagnesemia replaced. 11. Abdominal rash stable refusing her medicine. //DVT prophylaxis : Lovenox subcutaneously. discussed with patient in the room. Discharge Planning Awaiting for placement. is been difficult due to C Diff positive needs to be negative x 2. Gamaliel Bueno MD Aug 22, 2016 15:47
[2016-08-22 17:47] VITALS: BP 124/60; PULSE 78; RESP 20; TEMP 98.3; O2SAT 98
[2016-08-22 20:00] VITALS: BP 107/53; PULSE 76; RESP 20; TEMP 96.2; O2SAT 91
[2016-08-22] MEDS: CETIRIZINE HCL 10 MG TAB PO SCH (22:38)
[2016-08-22] MEDS: ONDANSETRON HCL 4 MG/2 ML VIAL IV PUSH PRN (22:38)
[2016-08-22] MEDS: SERTRALINE HCL 100 MG TAB PO SCH (22:39)
[2016-08-23] VITALS: BP 116/60; PULSE 70; RESP 20; TEMP 96.3; O2SAT 93
[2016-08-23 04:05] VITALS: BP 116/61; PULSE 71; RESP 20; TEMP 96.3; O2SAT 93
[2016-08-23] MEDS: LACTOBACILLUS ACIDOPHILUS TAB PO SCH ×2 (08:33→22:29)
[2016-08-23] MEDS: FIDAXOMICIN 200 MG TAB PO SCH ×2 (08:33→22:29)
[2016-08-23] MEDS: ASPIRIN EC 81 MG TABEC PO SCH (08:34)
[2016-08-23] MEDS: ACETAMINOPHEN/HYDROcodone 325 MG/5 MG TAB PO PRN (08:34)
[2016-08-23] MEDS: hydrOXYzine HCL 25 MG TAB PO PRN (08:35)
[2016-08-23] MEDS: METOCLOPRAMIDE HCL 10 MG/2 ML VIAL IV PUSH SCH ×3 (08:36→16:50)
[2016-08-23] MEDS: FUROSEMIDE 20 MG TAB PO SCH (08:36)
[2016-08-23] MEDS: LISINOPRIL 10 MG TAB PO SCH (08:37)
[2016-08-23] MEDS: MUPIROCIN 2% CREAM 15 GM TOPICAL SCH ×2 (08:37→22:30)
[2016-08-23] MEDS: CALAMINE/PRAMOXINE LOTION 180 ML BTL TOPICAL SCH ×2 (08:37→22:30)
[2016-08-23] MEDS: ENOXAPARIN SODIUM 40 MG/0.4 ML SYRINGE SQ SCH (08:37)
[2016-08-23] MEDS: SODIUM CHLORIDE 0.9% FLUSH 5 ML FLUSH FLUSH SCH ×2 (08:38→21:00)
[2016-08-23 08:58] VITALS: BP 124/60; PULSE 70; RESP 16; TEMP 96.1; O2SAT 95
[2016-08-23] MEDS: DRONABINOL 5 MG CAP PO SCH ×2 (11:00→16:49)
[2016-08-23 12:52] VITALS: BP 124/60; PULSE 73; RESP 16; TEMP 96.8; O2SAT 94
[2016-08-23] MEDS: CHOLESTYRAMINE 4 GM PACKET PO SCH ×2 (14:46→22:29)
--- NOTE | 2016-08-23 16:30 | HHI.PR ---
Subjective Remarks This is a pleasant 70 y/o Female with Morbid Obesity, Hypertension, who came on 06/07/16 after fall at home has been in a Wheelchair for the last 6 months, increased weakness, recently discharged home with PT returned to ER on 06/26/16 with persistent diffuse lower extremity weakness, has also OA, Anxiety disorder. 08/18 stable in her bedroom discussed with patient and nurse, no new issues continue awaiting for placement. 08/19 Seen in her bedroom, discussed with nurse Miss Martin no new issues, no nausea, vomit or diarrhea her Vancomycin was placed on Titration management, and asked for new C Diff test. 08/20 seen in her bedroom and discussed with nurse Miss Martin her C Diff test came back positive again after she was since July 27 on Vancomycin by mouth 250 mg QID, may need Fidaxomicin, asked for ID specialist consult. 08/21 seen in her bedroom stable. seen by ID specialist and started on Fidaxomicin 08/22 seen in her bedroom in the presence of nurse Miss Hargrove had three bowel movements today. some Nausea no vomit. 08/23 Stable, continue with some Diarrhea, added Questran, discussed with nurse Miss Hargrove, no nausea, no vomit Objective Vital Signs Date Time Temp Pulse Resp B/P Pulse Ox O2 Delivery O2 Flow Rate FiO2 08/23/16 12:52 96.8 73 16 124/60 94 08/23/16 08:58 96.1 70 16 124/60 95 08/23/16 04:05 96.3 71 20 116/61 93 08/23/16 00:00 96.3 70 20 116/60 93 08/22/16 23:40 19 08/22/16 20:00 96.2 76 20 107/53 91 08/22/16 17:47 98.3 78 20 124/60 98 I/O 08/22/16 08/22/16 08/22/16 08/23/16 08/23/16 08/23/16 07:00 15:00 23:00 07:00 15:00 23:00 # Voids 2 2 3 # Bowel Movements 2 2 1 Imaging Last Impressions Hip MRI 07/05/16 0000 Signed Impressions: Service Date/Time: Tuesday, July 05, 2016 10:51 - CONCLUSION: 1. There is osteopenia primary degenerative changes at both hips, left greater than right. 2. Prominent osteophyte along the inferior articulating surface of the proximal left femur. 3. Nonspecific edema in the gluteus and hamstring muscles. 4. No acute bony fracture. Javier Fishman MD Lower Extremity Ultrasound 06/29/16 0000 Signed Impressions: Service Date/Time: Wednesday, June 29, 2016 10:07 - CONCLUSION: Negative for deep venous thrombosis. Alfredo Sanders MD FACR Cervical Spine MRI 06/27/16 0000 Signed Impressions: Service Date/Time: Monday, June 27, 2016 11:09 - CONCLUSION: Mild degenerative changes otherwise unremarkable cervical spine. Anselmo Leavitt MD Thoracic Spine MRI 06/25/16 0000 Signed Impressions: Service Date/Time: June 19:36 - CONCLUSION: 1. No fracture or subluxation of the thoracic spine. 2. Mild and fairly diffuse degenerative changes as above. 3. Mild left foraminal encroachment at T8/T9 and T9/T10. 4. No significant spinal stenosis at any level. 5. Incidentally seen tiny right and small left pleural effusions, nonspecific. Jeevan Arreola MD Lumbar Spine MRI 06/25/16 0000 Signed Impressions: Service Date/Time: June 19:36 - CONCLUSION: 1. Multilevel lumbar degenerative changes as detailed above. 2. Mild spinal stenosis at L3/L4 without evidence of transiting nerve root impingement. 3. Mild to moderate spinal stenosis at L4/L5 and possibly with mild mass effect/impingement on the transiting left L5 nerve root within the subarticular recess. 4. Mild bilateral foraminal encroachment L3/L4 and L4/L5. Mild to moderate bilateral foraminal encroachment at L5/S1. 5. No fracture or subluxation of the lumbar spine. Jeevan Arreola MD Hip and Pelvis X-Ray 06/25/16 0000 Signed Impressions: Service Date/Time: June 20:27 - CONCLUSION: Moderate to severe left hip' right is with considerable osteophytosis and an apparent large inferior joint body. No fracture or subluxation. Jeevan Arreola MD Chest X-Ray 06/23/16 1402 Signed Impressions: Service Date/Time: Thursday, June 23, 2016 14:13 - CONCLUSION: Normal examination. Elías Moreno MD Procedures No procedures. Other Results Laboratory Tests Test 08/19/16 13:15 Stool C. difficile Toxin (PCR) POSITIVE Stl C. difficile Toxin PRESUMPTIVE Epiderm 027 NEGATIVE Objective Remarks GENERAL: Well-developed. Morbidly obese. In no acute distress. SKIN: Warm and dry. Improving erythema back areas. Erythema on sacral area but no ulcer. HEENT: Normocephalic. Pupils equal and round. Mucous membranes pink and moist. CARDIOVASCULAR: Regular rate and rhythm. No murmur RESPIRATORY: clear to auscultation, no wheezing or crackles. GASTROINTESTINAL: Abdomen soft, non-tender, nondistended. Bowel sounds x4. abdominal rash present MUSCULOSKELETAL:No clubbing cyanosis or edema. NEUROLOGICAL: Awake and alert. No focal neurological deficits. PSYCHIATRIC: Appropriate mood and affect; insight and judgment normal. Medications and IVs Current Medications Medications (Trade) Dose Ordered Sig/Alhaji Route Start Time Stop Time Status Last Admin (NS Flush) 2 ml UNSCH PRN FLUSH 06/23/16 20:00 07/25/16 18:44 (NS Flush) 2 ml BID FLUSH 06/23/16 21:00 08/23/16 08:38 (Lovenox Inj) 40 mg Q24H SQ 06/24/16 09:00 08/23/16 08:37 (Narcan Inj) 0.4 mg UNSCH PRN IV 06/23/16 20:00 (Norvasc) 10 mg DAILY PO 06/24/16 10:00 08/23/16 08:33 (Ecotrin Ec) 81 mg DAILY PO 06/25/16 09:00 08/23/16 08:34 (Lasix) 20 mg DAILY PO 06/25/16 09:00 08/23/16 08:36 (Zoloft) 200 mg HS PO 06/24/16 21:00 08/22/16 22:39 (Tylenol) 650 mg Q6H PRN PO 06/26/16 16:15 ([place]beron 5-325 Mg) 1 tab Q4H PRN PO 06/26/16 16:15 08/23/16 08:34 (Caladryl Lotion) 1 applic Q12HR TOPICAL 06/27/16 09:00 08/23/16 08:37 (ZyrTEC) 10 mg HS PO 06/29/16 21:00 08/22/16 22:38 (Lactinex) 1 tab Q12HR PO 07/04/16 21:00 08/23/16 08:33 (Zofran Inj) 4 mg Q6H PRN IV PUSH 07/07/16 13:45 08/22/16 22:38 (Atarax) 50 mg Q6H PRN PO 07/08/16 18:15 08/23/16 08:35 (Pepcid) 10 mg BID PO 07/09/16 21:00 Hold 07/23/16 08:56 (Pill Splitter) 1 ea UNSCH PRN OTHER 07/09/16 15:45 07/11/16 08:23 (Bactroban 2% Cream) 1 applic Q12HR TOPICAL 07/13/16 13:30 08/23/16 08:37 (Reglan Inj) 5 mg TIDAC IV PUSH 08/07/16 17:00 08/23/16 11:54 (Leti-Colace) 2 tab BID PO 08/09/16 12:15 Hold 08/19/16 09:52 (Prinivil) 10 mg DAILY PO 08/14/16 09:00 08/23/16 08:37 (Marinol) 5 mg BID@11,16 PO 08/15/16 16:00 08/22/16 16:28 (Dificid) 200 mg BID PO 08/20/16 21:00 08/30/16 20:59 08/23/16 08:33 (Questran 4 Gm Pkt) 4 gm Q8HR PO 08/23/16 14:00 08/23/16 14:46 A/P Assessment and Plan 1. C Difficile Diarrhea Improved Diarrhea, her Flagyl was discontinued but she had new C Diff test positive on July 18, since that time she is been on Metronidazole and Vancomycin she was started on Vancomycin 250 mg QID then increased to 500 mg QID after performed a new C Diff, she had positive test on 07/15, 07/18, 08/09 and 08/19 asked for ID specialist who started the patient on Fidaxomicin. started Questran 2. Total Self-care deficit will need SNF at discharge. Generalized weakness, continue PT and OT. 3. Nausea poor appetite on Marinol. improving slowly. 4. UTI Improved 5. Sacral Pressure Ulcer, wound care consulted, Barrier cream recommended turn every 2 hours. 6. OA chronic stable, Left hip x ray showed moderate to severe left hip OA with considerable osteophytosis and apparent large inferior joint body. MRI of the left hip ruled out osteomyelitis, Mild findings of Myelopathy, continue pain control, outpatient orthopedic follow up is recommended, Toradol added 08/06, decreased [place]beron. 7. Subclinical Hypothyroidism had abnormal thyroid function studies to repeat function test Now 8. Radiculopathy of Lumbar region. numbness on the Left anterior area of the thigh. TL spine MRI showed mild spinal stenosis at L3-4, moderate to moderate spinal stenosis at L4-5 and possibly with mild mass effect/impingement transiting left L5 nerve root with subarticular recess. Neurosurgery was consulted, ordered C-spine MRI which showed mild degenerative changes. Dr. Carballo discussed the case with Dr. Dennison, no intervention needed Left hip x-ray showed moderate to severe left hip osteoarthritis with considerable osteophytosis and apparent large inferior joint body. Continue pain control with oral Elberon, outpatient orthopedic follow-up is recommended. MRI of the left hip ruled out osteomyelitis. Mild findings for Myelopathy, 9. Bilateral Lower extremity Edema chronic issues, Left worse than right. Bilateral Doppler ultrasound negative for DVT. Continue MADIE hose. 10. Electrolyte derangement Hypokalemia replaced and Hypomagnesemia replaced. asked for new tests for tomorrow. 11. Abdominal rash stable refusing her medicine. //DVT prophylaxis : Lovenox subcutaneously. discussed with patient in the room and nurse BMP, Mag level and Phosphorus level. Discharge Planning Awaiting for placement. is been difficult due to C Diff positive needs to be negative x 2. Gamaliel Bueno MD Aug 23, 2016 16:30
[2016-08-23 17:21] VITALS: BP 154/83; PULSE 74; RESP 18; TEMP 98.3; O2SAT 97
[2016-08-23 20:44] VITALS: BP 134/70; PULSE 72; RESP 18; TEMP 97.6; O2SAT 94
[2016-08-23] MEDS: CETIRIZINE HCL 10 MG TAB PO SCH (22:28)
[2016-08-23] MEDS: SERTRALINE HCL 100 MG TAB PO SCH (22:28)
[2016-08-23] MEDS: ONDANSETRON HCL 4 MG/2 ML VIAL IV PUSH PRN (22:29)
[2016-08-24] VITALS: BP 114/52; PULSE 76; RESP 19; TEMP 97.3; O2SAT 94
[2016-08-24 04:00] VITALS: BP 124/67; PULSE 82; RESP 19; TEMP 98; O2SAT 95
[2016-08-24] MEDS: ONDANSETRON HCL 4 MG/2 ML VIAL IV PUSH PRN ×2 (05:20→16:23)
[2016-08-24] MEDS: hydrOXYzine HCL 25 MG TAB PO PRN ×2 (05:20→16:25)
[2016-08-24] MEDS: CHOLESTYRAMINE 4 GM PACKET PO SCH ×3 (05:20→22:24)
[2016-08-24 08:00] VITALS: BP 110/63; PULSE 72; RESP 18; TEMP 96.5; O2SAT 95
[2016-08-24 08:42] LABS: BICARBONATE 30.4 MEQ/L (21.0-32.0); FREE T4 0.79 NG/DL (0.76-1.46); MAGNESIUM 1.8 MG/DL (1.5-2.5)
[2016-08-24 08:59] LABS: POTASSIUM 2.9 MEQ/L (3.5-5.1)
[2016-08-24] MEDS: MUPIROCIN 2% CREAM 15 GM TOPICAL SCH ×2 (09:00→22:25)
[2016-08-24] MEDS: CALAMINE/PRAMOXINE LOTION 180 ML BTL TOPICAL SCH ×2 (09:00→22:25)
[2016-08-24] MEDS: LACTOBACILLUS ACIDOPHILUS TAB PO SCH ×2 (09:32→22:24)
[2016-08-24] MEDS: ASPIRIN EC 81 MG TABEC PO SCH (09:32)
[2016-08-24] MEDS: FUROSEMIDE 20 MG TAB PO SCH (09:32)
[2016-08-24] MEDS: FIDAXOMICIN 200 MG TAB PO SCH ×2 (09:32→22:24)
[2016-08-24] MEDS: LISINOPRIL 10 MG TAB PO SCH (09:33)
[2016-08-24] MEDS: ENOXAPARIN SODIUM 40 MG/0.4 ML SYRINGE SQ SCH (09:34)
[2016-08-24] MEDS: SODIUM CHLORIDE 0.9% FLUSH 5 ML FLUSH FLUSH SCH ×2 (09:34→22:25)
[2016-08-24] MEDS: METOCLOPRAMIDE HCL 10 MG/2 ML VIAL IV PUSH SCH ×3 (09:34→16:24)
[2016-08-24] MEDS: MAGNESIUM SULFATE 1 GM PREMIX 100 ML IV SCH ×2 (11:04→12:18)
[2016-08-24] MEDS: POTASSIUM CHLOR 20 MEQ PREMIX 100 ML IV SCH ×2 (11:05→12:22)
[2016-08-24 12:00] VITALS: BP 149/64; PULSE 65; RESP 19; TEMP 96.5; O2SAT 95
[2016-08-24] MEDS: DRONABINOL 5 MG CAP PO SCH ×2 (12:17→18:12)
--- NOTE | 2016-08-24 13:14 | HHI.PR ---
Subjective Remarks This is a pleasant 70 y/o Female with Morbid Obesity, Hypertension, who came on 06/07/16 after fall at home has been in a Wheelchair for the last 6 months, increased weakness, recently discharged home with PT returned to ER on 06/26/16 with persistent diffuse lower extremity weakness, has also OA, Anxiety disorder. 08/18 stable in her bedroom discussed with patient and nurse, no new issues continue awaiting for placement. 08/19 Seen in her bedroom, discussed with nurse Miss Martin no new issues, no nausea, vomit or diarrhea her Vancomycin was placed on Titration management, and asked for new C Diff test. 08/20 seen in her bedroom and discussed with nurse Miss Martin her C Diff test came back positive again after she was since July 27 on Vancomycin by mouth 250 mg QID, may need Fidaxomicin, asked for ID specialist consult. 08/21 seen in her bedroom stable. seen by ID specialist and started on Fidaxomicin 08/22 seen in her bedroom in the presence of nurse Miss Hargrove had three bowel movements today. some Nausea no vomit. 08/23 Stable, continue with some Diarrhea, added Questran, discussed with nurse Miss Hargrove, no nausea, no vomit 08/24 Seen in her bedroom in the presence of her , stable continue present care. Improving Nausea, no vomit improving diarrhea. Objective Vital Signs Date Time Temp Pulse Resp B/P Pulse Ox O2 Delivery O2 Flow Rate FiO2 08/24/16 12:00 96.5 65 19 149/64 95 08/24/16 08:00 96.5 72 18 110/63 95 08/24/16 04:00 98.0 82 19 124/67 95 08/24/16 00:00 97.3 76 19 114/52 94 08/23/16 20:44 97.6 72 18 134/70 94 08/23/16 17:21 98.3 74 18 154/83 97 I/O 08/23/16 08/23/16 08/23/16 08/24/16 08/24/16 08/24/16 07:00 15:00 23:00 07:00 15:00 23:00 Intake Total 250 ml Balance 250 ml Intake Oral 250 ml # Voids 1 0 # Bowel Movements 3 Result Diagram: 08/24/16 0733 Imaging Last Impressions Hip MRI 07/05/16 0000 Signed Impressions: Service Date/Time: Tuesday, July 05, 2016 10:51 - CONCLUSION: 1. There is osteopenia primary degenerative changes at both hips, left greater than right. 2. Prominent osteophyte along the inferior articulating surface of the proximal left femur. 3. Nonspecific edema in the gluteus and hamstring muscles. 4. No acute bony fracture. Javier Fishman MD Lower Extremity Ultrasound 06/29/16 0000 Signed Impressions: Service Date/Time: Wednesday, June 29, 2016 10:07 - CONCLUSION: Negative for deep venous thrombosis. Alfredo Sanders MD FACR Cervical Spine MRI 06/27/16 0000 Signed Impressions: Service Date/Time: Monday, June 27, 2016 11:09 - CONCLUSION: Mild degenerative changes otherwise unremarkable cervical spine. Anselmo Leavitt MD Thoracic Spine MRI 06/25/16 Signed Impressions: Service Date/Time: June 19:36 - CONCLUSION: 1. No fracture or subluxation of the thoracic spine. 2. Mild and fairly diffuse degenerative changes as above. 3. Mild left foraminal encroachment at T8/T9 and T9/T10. 4. No significant spinal stenosis at any level. 5. Incidentally seen tiny right and small left pleural effusions, nonspecific. Jeevan Arreola MD Lumbar Spine MRI 06/25/16 Signed Impressions: Service Date/Time: June 19:36 - CONCLUSION: 1. Multilevel lumbar degenerative changes as detailed above. 2. Mild spinal stenosis at L3/L4 without evidence of transiting nerve root impingement. 3. Mild to moderate spinal stenosis at L4/L5 and possibly with mild mass effect/impingement on the transiting left L5 nerve root within the subarticular recess. 4. Mild bilateral foraminal encroachment L3/L4 and L4/L5. Mild to moderate bilateral foraminal encroachment at L5/S1. 5. No fracture or subluxation of the lumbar spine. Jeevan Arreola MD Hip and Pelvis X-Ray 06/25/16 Signed Impressions: Service Date/Time: June 20:27 - CONCLUSION: Moderate to severe left hip' right is with considerable osteophytosis and an apparent large inferior joint body. No fracture or subluxation. Jeevan Arreola MD Chest X-Ray 06/23/16 1402 Signed Impressions: Service Date/Time: Thursday, June 23, 2016 14:13 - CONCLUSION: Normal examination. Elías Moreno MD Procedures No procedures. Other Results Laboratory Tests Test 08/24/16 07:33 Sodium Level 144 MEQ/L Potassium Level 2.9 MEQ/L Chloride Level 104 MEQ/L Carbon Dioxide Level 30.4 MEQ/L Anion Gap 10 MEQ/L Blood Urea Nitrogen 26 MG/DL Creatinine 1.22 MG/DL Estimat Glomerular Filtration 44 ML/MIN Rate Random Glucose 104 MG/DL Calcium Level 8.4 MG/DL Phosphorus Level 3.3 MG/DL Magnesium Level 1.8 MG/DL Free Thyroxine 0.79 NG/DL Thyroid Stimulating Hormone 3.970 uIU/ML 3rd Gen Objective Remarks GENERAL: Morbidly obese. In no acute distress. SKIN: Warm and dry. Improving erythema back areas. Erythema on sacral area but no ulcer. HEENT: Normocephalic. Pupils equal and round. Mucous membranes pink and moist. CARDIOVASCULAR: Regular rate and rhythm. No murmur RESPIRATORY: clear to auscultation, no wheezing or crackles. GASTROINTESTINAL: Abdomen soft, non-tender, nondistended. Bowel sounds x4. abdominal rash present MUSCULOSKELETAL:No clubbing cyanosis or edema. NEUROLOGICAL: Awake and alert. No focal neurological deficits. PSYCHIATRIC: Appropriate mood and affect; insight and judgment normal. Medications and IVs Current Medications Medications (Trade) Dose Ordered Sig/Alhaji Route Start Time Stop Time Status Last Admin (NS Flush) 2 ml UNSCH PRN FLUSH 06/23/16 20:00 07/25/16 18:44 (NS Flush) 2 ml BID FLUSH 06/23/16 21:00 08/24/16 09:34 (Lovenox Inj) 40 mg Q24H SQ 06/24/16 09:00 08/24/16 09:34 (Narcan Inj) 0.4 mg UNSCH PRN IV 06/23/16 20:00 (Norvasc) 10 mg DAILY PO 06/24/16 10:00 08/23/16 08:33 (Ecotrin Ec) 81 mg DAILY PO 06/25/16 09:00 08/24/16 09:32 (Lasix) 20 mg DAILY PO 06/25/16 09:00 08/24/16 09:32 (Zoloft) 200 mg HS PO 06/24/16 21:00 08/23/16 22:28 (Tylenol) 650 mg Q6H PRN PO 06/26/16 16:15 ([place] 5-325 Mg) 1 tab Q4H PRN PO 06/26/16 16:15 08/23/16 08:34 (Caladryl Lotion) 1 applic Q12HR TOPICAL 06/27/16 09:00 08/24/16 09:00 (ZyrTEC) 10 mg HS PO 06/29/16 21:00 08/23/16 22:28 (Lactinex) 1 tab Q12HR PO 07/04/16 21:00 08/24/16 09:32 (Zofran Inj) 4 mg Q6H PRN IV PUSH 07/07/16 13:45 08/24/16 05:20 (Atarax) 50 mg Q6H PRN PO 07/08/16 18:15 08/24/16 05:20 (Pepcid) 10 mg BID PO 07/09/16 21:00 Hold 07/23/16 08:56 (Pill Splitter) 1 ea UNSCH PRN OTHER 07/09/16 15:45 07/11/16 08:23 (Bactroban 2% Cream) 1 applic Q12HR TOPICAL 07/13/16 13:30 08/24/16 09:00 (Reglan Inj) 5 mg TIDAC IV PUSH 08/07/16 17:00 08/24/16 09:34 (Leti-Colace) 2 tab BID PO 08/09/16 12:15 Hold 08/19/16 09:52 (Prinivil) 10 mg DAILY PO 08/14/16 09:00 08/24/16 09:33 (Marinol) 5 mg BID@11,16 PO 08/15/16 16:00 08/24/16 12:17 (Dificid) 200 mg BID PO 08/20/16 21:00 08/30/16 20:59 08/24/16 09:32 Cholestyramine Resin 4 gm 4 gm Q8HR PO 08/23/16 14:00 08/24/16 05:20 (KCl 20 Meq Premix Inj) 100 ml @ 50 mls/hr Q2H IV 08/24/16 09:30 08/24/16 13:29 08/24/16 12:22 A/P Assessment and Plan 1. C Difficile Diarrhea Improved Diarrhea, her Flagyl was discontinued but she had new C Diff test positive on July 18, since that time she is been on Metronidazole and Vancomycin she was started on Vancomycin 250 mg QID then increased to 500 mg QID after performed a new C Diff, she had positive test on 07/15, 07/18, 08/09 and 08/19 asked for ID specialist who started the patient on Fidaxomicin. started Questran 2. Total Self-care deficit will need SNF at discharge. Generalized weakness, continue PT and OT. 3. Nausea poor appetite on Marinol. improving slowly. 4. UTI Improved 5. Sacral Pressure Ulcer, wound care consulted, Barrier cream recommended turn every 2 hours. 6. OA chronic stable, Left hip x ray showed moderate to severe left hip OA with considerable osteophytosis and apparent large inferior joint body. MRI of the left hip ruled out osteomyelitis, Mild findings of Myelopathy, continue pain control, outpatient orthopedic follow up is recommended, Toradol added 08/06, decreased [place]. 7. Subclinical Hypothyroidism had abnormal thyroid function studies to repeat function test Now 8. Radiculopathy of Lumbar region. numbness on the Left anterior area of the thigh. TL spine MRI showed mild spinal stenosis at L3-4, moderate to moderate spinal stenosis at L4-5 and possibly with mild mass effect/impingement transiting left L5 nerve root with subarticular recess. Neurosurgery was consulted, ordered C-spine MRI which showed mild degenerative changes. Dr. Carballo discussed the case with Dr. Dennison, no intervention needed Left hip x-ray showed moderate to severe left hip osteoarthritis with considerable osteophytosis and apparent large inferior joint body. Continue pain control with oral [place], outpatient orthopedic follow-up is recommended. MRI of the left hip ruled out osteomyelitis. Mild findings for Myelopathy, 9. Bilateral Lower extremity Edema chronic issues, Left worse than right. Bilateral Doppler ultrasound negative for DVT. Continue MADIE hose. 10. Electrolyte derangement Hypokalemia replaced follow in am tomorrow. 11. Abdominal rash stable refusing her medicine. //DVT prophylaxis : Lovenox subcutaneously. discussed with patient and her in the room, all questions answered to the best of my abilities. Discharge Planning Awaiting for placement. is been difficult due to C Diff positive needs to be negative x 2. Gamaliel Bueno MD Aug 24, 2016 13:14
[2016-08-24 16:00] VITALS: BP 109/67; PULSE 72; RESP 19; TEMP 97.6; O2SAT 100
[2016-08-24] MEDS: ACETAMINOPHEN/HYDROcodone 325 MG/5 MG TAB PO PRN ×2 (16:25→22:32)
[2016-08-24] MEDS ORDERED: POTASSIUM CHLOR 20 MEQ PREMIX 100 ML IV ONE (19:00)
[2016-08-24 20:00] VITALS: BP 111/53; PULSE 75; RESP 20; TEMP 96.2; O2SAT 93
[2016-08-24] MEDS: SERTRALINE HCL 100 MG TAB PO SCH (22:23)
[2016-08-24] MEDS: CETIRIZINE HCL 10 MG TAB PO SCH (22:23)
[2016-08-25] VITALS: BP 118/88; PULSE 73; RESP 20; TEMP 98.3; O2SAT 93
[2016-08-25 04:00] VITALS: BP 125/60; PULSE 73; RESP 20; TEMP 97.6; O2SAT 94
[2016-08-25] MEDS: CHOLESTYRAMINE 4 GM PACKET PO SCH ×3 (06:27→22:02)
[2016-08-25 08:00] VITALS: BP 130/61; PULSE 76; RESP 18; TEMP 96.3; O2SAT 95
[2016-08-25] MEDS: SODIUM CHLORIDE 0.9% FLUSH 5 ML FLUSH FLUSH SCH ×2 (09:00→21:00)
[2016-08-25] MEDS: CALAMINE/PRAMOXINE LOTION 180 ML BTL TOPICAL SCH ×2 (09:00→22:03)
[2016-08-25] MEDS: MUPIROCIN 2% CREAM 15 GM TOPICAL SCH ×2 (09:00→22:03)
--- NOTE | 2016-08-25 09:01 | HHI.PR ---
Subjective Remarks This is a pleasant 70 y/o Female with Morbid Obesity, Hypertension, who came on 06/07/16 after fall at home has been in a Wheelchair for the last 6 months, increased weakness, recently discharged home with PT returned to ER on 06/26/16 with persistent diffuse lower extremity weakness, has also OA, Anxiety disorder. 08/18 stable in her bedroom discussed with patient and nurse, no new issues continue awaiting for placement. 08/19 Seen in her bedroom, discussed with nurse Miss Martin no new issues, no nausea, vomit or diarrhea her Vancomycin was placed on Titration management, and asked for new C Diff test. 08/20 seen in her bedroom and discussed with nurse Miss Martin her C Diff test came back positive again after she was since July 27 on Vancomycin by mouth 250 mg QID, may need Fidaxomicin, asked for ID specialist consult. 08/21 seen in her bedroom stable. seen by ID specialist and started on Fidaxomicin 08/22 seen in her bedroom in the presence of nurse Miss Hargrove had three bowel movements today. some Nausea no vomit. 08/23 Stable, continue with some Diarrhea, added Questran, discussed with nurse Miss Hargrove, no nausea, no vomit 08/24 Seen in her bedroom in the presence of her , stable continue present care. Improving Nausea, no vomit improving diarrhea. 08/25 Patient Stable continue complaint of diarrhea even on Questran, discussed with nurse Mr. Fuentes her Potassium level today 3.2 given 40 meq IV and will get a new Potassium level at 1600 hours. will also follow Potassium and Magnesium by tomorrow am. No nausea or vomit. Objective Vital Signs Date Time Temp Pulse Resp B/P Pulse Ox O2 Delivery O2 Flow Rate FiO2 08/25/16 04:00 97.6 73 20 125/60 94 08/25/16 00:00 98.3 73 20 118/88 93 08/24/16 20:00 96.2 75 20 111/53 93 08/24/16 16:00 97.6 72 19 109/67 100 08/24/16 12:00 96.5 65 19 149/64 95 I/O 08/24/16 08/24/16 08/24/16 08/25/16 08/25/16 08/25/16 07:00 15:00 23:00 07:00 15:00 23:00 Intake Total 500 ml Balance 500 ml Intake Oral 500 ml # Voids 0 0 0 # Bowel Movements 3 Result Diagram: 08/25/16 0750 Imaging Last Impressions Hip MRI 07/05/16 0000 Signed Impressions: Service Date/Time: Tuesday, July 05, 2016 10:51 - CONCLUSION: 1. There is osteopenia primary degenerative changes at both hips, left greater than right. 2. Prominent osteophyte along the inferior articulating surface of the proximal left femur. 3. Nonspecific edema in the gluteus and hamstring muscles. 4. No acute bony fracture. Javier Fishman MD Lower Extremity Ultrasound 06/29/16 0000 Signed Impressions: Service Date/Time: Wednesday, June 29, 2016 10:07 - CONCLUSION: Negative for deep venous thrombosis. Alfredo Sanders MD FACR Cervical Spine MRI 06/27/16 0000 Signed Impressions: Service Date/Time: Monday, June 27, 2016 11:09 - CONCLUSION: Mild degenerative changes otherwise unremarkable cervical spine. Anselmo Leavitt MD Thoracic Spine MRI 06/25/16 0000 Signed Impressions: Service Date/Time: June 19:36 - CONCLUSION: 1. No fracture or subluxation of the thoracic spine. 2. Mild and fairly diffuse degenerative changes as above. 3. Mild left foraminal encroachment at T8/T9 and T9/T10. 4. No significant spinal stenosis at any level. 5. Incidentally seen tiny right and small left pleural effusions, nonspecific. Jeevan Arreola MD Lumbar Spine MRI 06/25/16 0000 Signed Impressions: Service Date/Time: June 19:36 - CONCLUSION: 1. Multilevel lumbar degenerative changes as detailed above. 2. Mild spinal stenosis at L3/L4 without evidence of transiting nerve root impingement. 3. Mild to moderate spinal stenosis at L4/L5 and possibly with mild mass effect/impingement on the transiting left L5 nerve root within the subarticular recess. 4. Mild bilateral foraminal encroachment L3/L4 and L4/L5. Mild to moderate bilateral foraminal encroachment at L5/S1. 5. No fracture or subluxation of the lumbar spine. Jeevan Arreola MD Hip and Pelvis X-Ray 2/2/17 0000 Signed Impressions: Service Date/Time: June 20:27 - CONCLUSION: Moderate to severe left hip' right is with considerable osteophytosis and an apparent large inferior joint body. No fracture or subluxation. Jeevan Arreola MD Chest X-Ray 06/23/16 1402 Signed Impressions: Service Date/Time: Thursday, June 23, 2016 14:13 - CONCLUSION: Normal examination. Elías Moreno MD Procedures No procedures. Other Results Laboratory Tests Test 08/24/16 08/25/16 07:33 07:50 Sodium Level 144 MEQ/L Chloride Level 104 MEQ/L Carbon Dioxide Level 30.4 MEQ/L Anion Gap 10 MEQ/L Blood Urea Nitrogen 26 MG/DL Creatinine 1.22 MG/DL Estimat Glomerular Filtration 44 ML/MIN Rate Random Glucose 104 MG/DL Calcium Level 8.4 MG/DL Phosphorus Level 3.3 MG/DL Magnesium Level 1.8 MG/DL Free Thyroxine 0.79 NG/DL Thyroid Stimulating Hormone 3.970 uIU/ML 3rd Gen Potassium Level 3.2 MEQ/L Objective Remarks GENERAL: Morbidly obese. In no acute distress. SKIN: Warm and dry. Improving erythema back areas. Erythema on sacral area but no ulcer. HEENT: Normocephalic. Pupils equal and round. Mucous membranes pink and moist. CARDIOVASCULAR: Regular rate and rhythm. No murmur RESPIRATORY: clear to auscultation, no wheezing or crackles. GASTROINTESTINAL: Abdomen soft, non-tender, nondistended. Bowel sounds x4. abdominal rash present MUSCULOSKELETAL:No clubbing cyanosis or edema. NEUROLOGICAL: Awake and alert. No focal neurological deficits. PSYCHIATRIC: Appropriate mood and affect; insight and judgment normal. Medications and IVs Current Medications Medications (Trade) Dose Ordered Sig/Alhaji Route Start Time Stop Time Status Last Admin (NS Flush) 2 ml UNSCH PRN FLUSH 06/23/16 20:00 07/25/16 18:44 (NS Flush) 2 ml BID FLUSH 06/23/16 21:00 08/24/16 22:25 (Lovenox Inj) 40 mg Q24H SQ 06/24/16 09:00 08/24/16 09:34 (Narcan Inj) 0.4 mg UNSCH PRN IV 06/23/16 20:00 (Norvasc) 10 mg DAILY PO 06/24/16 10:00 08/23/16 08:33 (Ecotrin Ec) 81 mg DAILY PO 06/25/16 09:00 08/24/16 09:32 (Lasix) 20 mg DAILY PO 06/25/16 09:00 08/24/16 09:32 (Zoloft) 200 mg HS PO 06/24/16 21:00 08/24/16 22:23 (Tylenol) 650 mg Q6H PRN PO 06/26/16 16:15 ([place] 5-325 Mg) 1 tab Q4H PRN PO 06/26/16 16:15 08/24/16 22:32 (Caladryl Lotion) 1 applic Q12HR TOPICAL 06/27/16 09:00 08/24/16 22:25 (ZyrTEC) 10 mg HS PO 06/29/16 21:00 08/24/16 22:23 (Lactinex) 1 tab Q12HR PO 07/04/16 21:00 08/24/16 22:24 (Zofran Inj) 4 mg Q6H PRN IV PUSH 07/07/16 13:45 08/24/16 16:23 (Atarax) 50 mg Q6H PRN PO 07/08/16 18:15 08/24/16 16:25 (Pepcid) 10 mg BID PO 07/09/16 21:00 Hold 07/23/16 08:56 (Pill Splitter) 1 ea UNSCH PRN OTHER 07/09/16 15:45 07/11/16 08:23 (Bactroban 2% Cream) 1 applic Q12HR TOPICAL 07/13/16 13:30 08/24/16 22:25 (Reglan Inj) 5 mg TIDAC IV PUSH 08/07/16 17:00 08/24/16 16:24 (Leti-Colace) 2 tab BID PO 08/09/16 12:15 Hold 08/19/16 09:52 (Prinivil) 10 mg DAILY PO 08/14/16 09:00 08/24/16 09:33 (Marinol) 5 mg BID@11,16 PO 08/15/16 16:00 08/24/16 18:12 (Dificid) 200 mg BID PO 08/20/16 21:00 08/30/16 20:59 08/24/16 22:24 (Questran 4 Gm Pkt) 4 gm Q8HR PO 08/23/16 14:00 08/25/16 06:27 A/P Assessment and Plan 1. C Difficile Diarrhea Improved Diarrhea, her Flagyl was discontinued but she had new C Diff test positive on July 18, since that time she is been on Metronidazole and Vancomycin she was started on Vancomycin 250 mg QID then increased to 500 mg QID after performed a new C Diff, she had positive test on 07/15, 07/18, 08/09 and 08/19 asked for ID specialist who started the patient on Fidaxomicin. continue with Diarrhea will continue Questran. 2. Total Self-care deficit will need SNF at discharge. Generalized weakness, continue PT and OT. 3. Nausea poor appetite on Marinol. improving slowly. 4. UTI Improved 5. Sacral Pressure Ulcer, wound care consulted, Barrier cream recommended turn every 2 hours. 6. OA chronic stable, Left hip x ray showed moderate to severe left hip OA with considerable osteophytosis and apparent large inferior joint body. MRI of the left hip ruled out osteomyelitis, Mild findings of Myelopathy, continue pain control, outpatient orthopedic follow up is recommended, Toradol added 08/06, decreased [place]. 7. Subclinical Hypothyroidism had abnormal thyroid function studies to repeat function test Now and is normal will discontinue this diagnosis by tomorrow. 8. Radiculopathy of Lumbar region. numbness on the Left anterior area of the thigh. TL spine MRI showed mild spinal stenosis at L3-4, moderate to moderate spinal stenosis at L4-5 and possibly with mild mass effect/impingement transiting left L5 nerve root with subarticular recess. Neurosurgery was consulted, ordered C-spine MRI which showed mild degenerative changes. Dr. Carballo discussed the case with Dr. Dennison, no intervention needed Left hip x-ray showed moderate to severe left hip osteoarthritis with considerable osteophytosis and apparent large inferior joint body. Continue pain control with oral [place], outpatient orthopedic follow-up is recommended. MRI of the left hip ruled out osteomyelitis. Mild findings for Myelopathy, 9. Bilateral Lower extremity Edema chronic issues, Left worse than right. Bilateral Doppler ultrasound negative for DVT. Continue MADIE hose. 10. Electrolyte derangement Hypokalemia Potassium 3.2 replaced and following. 11. Abdominal rash stable refusing her medicine. //DVT prophylaxis : Lovenox subcutaneously. discussed with patient and nurse Mr. Fuentes Discharge Planning Awaiting for placement. is been difficult due to C Diff positive needs to be negative x 2. Gamaliel Bueno MD Aug 25, 2016 09:01
[2016-08-25] MEDS: ENOXAPARIN SODIUM 40 MG/0.4 ML SYRINGE SQ SCH (09:50)
[2016-08-25] MEDS: FUROSEMIDE 20 MG TAB PO SCH (09:51)
[2016-08-25] MEDS: LISINOPRIL 10 MG TAB PO SCH (09:52)
[2016-08-25] MEDS: METOCLOPRAMIDE HCL 10 MG/2 ML VIAL IV PUSH SCH ×3 (09:53→19:21)
[2016-08-25] MEDS: FIDAXOMICIN 200 MG TAB PO SCH ×2 (09:53→22:01)
[2016-08-25] MEDS: LACTOBACILLUS ACIDOPHILUS TAB PO SCH ×2 (09:53→22:01)
[2016-08-25] MEDS: ASPIRIN EC 81 MG TABEC PO SCH (09:54)
[2016-08-25] MEDS: POTASSIUM CHLOR 20 MEQ PREMIX 100 ML IV SCH ×2 (10:06→12:53)
[2016-08-25 12:00] VITALS: BP 131/62; PULSE 74; RESP 18; TEMP 96.8; O2SAT 94
[2016-08-25] MEDS: ACETAMINOPHEN/HYDROcodone 325 MG/5 MG TAB PO PRN ×2 (12:44→19:32)
[2016-08-25] MEDS: DRONABINOL 5 MG CAP PO SCH ×2 (12:44→19:20)
[2016-08-25] MEDS: ONDANSETRON HCL 4 MG/2 ML VIAL IV PUSH PRN ×2 (12:45→19:31)
[2016-08-25 16:00] VITALS: BP 117/58; PULSE 72; RESP 18; TEMP 97.2; O2SAT 94
[2016-08-25] MEDS: hydrOXYzine HCL 25 MG TAB PO PRN (19:31)
[2016-08-25 20:24] VITALS: BP 137/58; PULSE 73; RESP 17; TEMP 98.8; O2SAT 94
[2016-08-25] MEDS: SERTRALINE HCL 100 MG TAB PO SCH (22:01)
[2016-08-25] MEDS: CETIRIZINE HCL 10 MG TAB PO SCH (22:01)
[2016-08-26 01:03] VITALS: BP 100/56; PULSE 76; RESP 17; TEMP 97.2; O2SAT 94
[2016-08-26] MEDS: CHOLESTYRAMINE 4 GM PACKET PO SCH ×3 (05:26→22:00)
[2016-08-26 05:45] VITALS: BP 109/57; PULSE 80; RESP 17; TEMP 95.9; O2SAT 96
[2016-08-26 08:00] VITALS: BP 118/56; PULSE 72; RESP 20; TEMP 95.8; O2SAT 93
[2016-08-26 08:31] LABS: MAGNESIUM 2.3 MG/DL (1.5-2.5); POTASSIUM 3.5 MEQ/L (3.5-5.1)
[2016-08-26] MEDS: SODIUM CHLORIDE 0.9% FLUSH 5 ML FLUSH FLUSH SCH ×2 (09:00→21:00)
[2016-08-26] MEDS: CALAMINE/PRAMOXINE LOTION 180 ML BTL TOPICAL SCH ×2 (09:00→21:00)
[2016-08-26] MEDS: LACTOBACILLUS ACIDOPHILUS TAB PO SCH ×2 (09:53→21:27)
[2016-08-26] MEDS: ENOXAPARIN SODIUM 40 MG/0.4 ML SYRINGE SQ SCH (09:53)
[2016-08-26] MEDS: ASPIRIN EC 81 MG TABEC PO SCH (09:54)
[2016-08-26] MEDS: MUPIROCIN 2% CREAM 15 GM TOPICAL SCH ×2 (09:54→21:00)
[2016-08-26] MEDS: FUROSEMIDE 20 MG TAB PO SCH (09:54)
[2016-08-26] MEDS: LISINOPRIL 10 MG TAB PO SCH (09:54)
[2016-08-26] MEDS: FIDAXOMICIN 200 MG TAB PO SCH ×2 (10:02→21:25)
[2016-08-26] MEDS: METOCLOPRAMIDE HCL 10 MG/2 ML VIAL IV PUSH SCH ×3 (10:02→16:48)
[2016-08-26] MEDS: ACETAMINOPHEN/HYDROcodone 325 MG/5 MG TAB PO PRN ×3 (10:03→21:57)
[2016-08-26] MEDS: hydrOXYzine HCL 25 MG TAB PO PRN ×2 (10:03→21:26)
[2016-08-26 12:00] VITALS: BP 130/61; PULSE 70; RESP 18; TEMP 97.7; O2SAT 96
--- NOTE | 2016-08-26 12:11 | HHI.PR ---
Subjective Remarks This is a pleasant 70 y/o Female with Morbid Obesity, Hypertension, who came on 06/07/16 after fall at home has been in a Wheelchair for the last 6 months, increased weakness, recently discharged home with PT returned to ER on 06/26/16 with persistent diffuse lower extremity weakness, has also OA, Anxiety disorder. 08/18 stable in her bedroom discussed with patient and nurse, no new issues continue awaiting for placement. 08/19 Seen in her bedroom, discussed with nurse Miss Martin no new issues, no nausea, vomit or diarrhea her Vancomycin was placed on Titration management, and asked for new C Diff test. 08/20 seen in her bedroom and discussed with nurse Miss Martin her C Diff test came back positive again after she was since July 27 on Vancomycin by mouth 250 mg QID, may need Fidaxomicin, asked for ID specialist consult. 08/21 seen in her bedroom stable. seen by ID specialist and started on Fidaxomicin 08/22 seen in her bedroom in the presence of nurse Miss Hargrove had three bowel movements today. some Nausea no vomit. 08/23 Stable, continue with some Diarrhea, added Questran, discussed with nurse Miss Hargrove, no nausea, no vomit 08/24 Seen in her bedroom in the presence of her , stable continue present care. Improving Nausea, no vomit improving diarrhea. 08/25 Patient Stable continue complaint of diarrhea even on Questran, discussed with nurse Mr. Fuentes her Potassium level today 3.2 given 40 meq IV and following 08/26 Seen in her bedroom, continue with Diarrhea given Questran, continue Fidaxomicin, NO Nausea or vomit, do not accept Physical therapy, do not cooperate with activity wants to stay in bed. Objective Vital Signs Date Time Temp Pulse Resp B/P Pulse Ox O2 Delivery O2 Flow Rate FiO2 08/26/16 08:00 95.8 72 20 118/56 93 08/26/16 05:45 95.9 80 17 109/57 96 08/26/16 01:03 97.2 76 17 100/56 94 08/25/16 20:24 98.8 73 17 137/58 94 08/25/16 16:00 97.2 72 18 117/58 94 08/25/16 13:44 15 I/O 4/4/17 4/4/08/25/16 08/26/16 08/26/16 08/26/16 07:00 15:00 23:00 07:00 15:00 23:00 Intake Total 120 ml 480 ml Balance 120 ml 480 ml Intake Oral 120 ml 480 ml # Voids 1 3 # Bowel Movements 1 Result Diagram: 08/26/16 0726 Imaging Last Impressions Hip MRI 07/05/16 0000 Signed Impressions: Service Date/Time: Tuesday, July 05, 2016 10:51 - CONCLUSION: 1. There is osteopenia primary degenerative changes at both hips, left greater than right. 2. Prominent osteophyte along the inferior articulating surface of the proximal left femur. 3. Nonspecific edema in the gluteus and hamstring muscles. 4. No acute bony fracture. Javier Fishman MD Lower Extremity Ultrasound 06/29/16 0000 Signed Impressions: Service Date/Time: Wednesday, June 29, 2016 10:07 - CONCLUSION: Negative for deep venous thrombosis. Alfredo Sanders MD FACR Cervical Spine MRI 06/27/16 0000 Signed Impressions: Service Date/Time: Monday, June 27, 2016 11:09 - CONCLUSION: Mild degenerative changes otherwise unremarkable cervical spine. Anselmo Leavitt MD Thoracic Spine MRI 06/25/16 0000 Signed Impressions: Service Date/Time: June 19:36 - CONCLUSION: 1. No fracture or subluxation of the thoracic spine. 2. Mild and fairly diffuse degenerative changes as above. 3. Mild left foraminal encroachment at T8/T9 and T9/T10. 4. No significant spinal stenosis at any level. 5. Incidentally seen tiny right and small left pleural effusions, nonspecific. Jeevan Arreola MD Lumbar Spine MRI 06/25/16 0000 Signed Impressions: Service Date/Time: June 19:36 - CONCLUSION: 1. Multilevel lumbar degenerative changes as detailed above. 2. Mild spinal stenosis at L3/L4 without evidence of transiting nerve root impingement. 3. Mild to moderate spinal stenosis at L4/L5 and possibly with mild mass effect/impingement on the transiting left L5 nerve root within the subarticular recess. 4. Mild bilateral foraminal encroachment L3/L4 and L4/L5. Mild to moderate bilateral foraminal encroachment at L5/S1. 5. No fracture or subluxation of the lumbar spine. Jeevan Arreola MD Hip and Pelvis X-Ray 06/25/16 0000 Signed Impressions: Service Date/Time: June 20:27 - CONCLUSION: Moderate to severe left hip' right is with considerable osteophytosis and an apparent large inferior joint body. No fracture or subluxation. Jeevan Arreola MD Chest X-Ray 06/23/16 1402 Signed Impressions: Service Date/Time: Thursday, June 23, 2016 14:13 - CONCLUSION: Normal examination. Elías Moreno MD Procedures No procedures. Other Results Laboratory Tests Test 08/24/16 08/26/16 07:33 07:26 Sodium Level 144 MEQ/L Chloride Level 104 MEQ/L Carbon Dioxide Level 30.4 MEQ/L Anion Gap 10 MEQ/L Blood Urea Nitrogen 26 MG/DL Creatinine 1.22 MG/DL Estimat Glomerular Filtration 44 ML/MIN Rate Random Glucose 104 MG/DL Calcium Level 8.4 MG/DL Phosphorus Level 3.3 MG/DL Free Thyroxine 0.79 NG/DL Thyroid Stimulating Hormone 3.970 uIU/ML 3rd Gen Potassium Level 3.5 MEQ/L Magnesium Level 2.3 MG/DL Objective Remarks GENERAL: Morbidly obese. In no acute distress. SKIN: Warm and dry. Improving erythema back areas. Erythema on sacral area but no ulcer. HEENT: Normocephalic. Pupils equal and round. Mucous membranes pink and moist. CARDIOVASCULAR: Regular rate and rhythm. No murmur RESPIRATORY: clear to auscultation, no wheezing or crackles. GASTROINTESTINAL: Abdomen soft, non-tender, nondistended. Bowel sounds x4. abdominal rash present MUSCULOSKELETAL:No clubbing cyanosis or edema. NEUROLOGICAL: Awake and alert. No focal neurological deficits. PSYCHIATRIC: Appropriate mood and affect; insight and judgment normal. Medications and IVs Current Medications Medications (Trade) Dose Ordered Sig/Alhaji Route Start Time Stop Time Status Last Admin (NS Flush) 2 ml UNSCH PRN FLUSH 06/23/16 20:00 07/25/16 18:44 (NS Flush) 2 ml BID FLUSH 06/23/16 21:00 08/26/16 09:00 (Lovenox Inj) 40 mg Q24H SQ 06/24/16 09:00 08/26/16 09:53 (Narcan Inj) 0.4 mg UNSCH PRN IV 06/23/16 20:00 (Norvasc) 10 mg DAILY PO 06/24/16 10:00 08/26/16 09:53 (Ecotrin Ec) 81 mg DAILY PO 06/25/16 09:00 08/26/16 09:54 (Lasix) 20 mg DAILY PO 06/25/16 09:00 08/26/16 09:54 (Zoloft) 200 mg HS PO 06/24/16 21:00 08/25/16 22:01 (Tylenol) 650 mg Q6H PRN PO 06/26/16 16:15 (Longton 5-325 Mg) 1 tab Q4H PRN PO 06/26/16 16:15 08/26/16 10:03 (Caladryl Lotion) 1 applic Q12HR TOPICAL 06/27/16 09:00 08/25/16 22:03 (ZyrTEC) 10 mg HS PO 06/29/16 21:00 08/25/16 22:01 (Lactinex) 1 tab Q12HR PO 07/04/16 21:00 08/26/16 09:53 (Zofran Inj) 4 mg Q6H PRN IV PUSH 07/07/16 13:45 08/25/16 19:31 (Atarax) 50 mg Q6H PRN PO 07/08/16 18:15 08/26/16 10:03 (Pepcid) 10 mg BID PO 07/09/16 21:00 Hold 07/23/16 08:56 (Pill Splitter) 1 ea UNSCH PRN OTHER 07/09/16 15:45 07/11/16 08:23 (Bactroban 2% Cream) 1 applic Q12HR TOPICAL 07/13/16 13:30 08/26/16 09:54 (Reglan Inj) 5 mg TIDAC IV PUSH 08/07/16 17:00 08/26/16 10:02 (Leti-Colace) 2 tab BID PO 08/09/16 12:15 Hold 08/19/16 09:52 (Prinivil) 10 mg DAILY PO 08/14/16 09:00 08/26/16 09:54 (Marinol) 5 mg BID@11,16 PO 08/15/16 16:00 08/25/16 19:20 (Dificid) 200 mg BID PO 08/20/16 21:00 08/30/16 20:59 08/26/16 10:02 (Questran 4 Gm Pkt) 4 gm Q8HR PO 08/23/16 14:00 08/25/16 22:02 A/P Assessment and Plan 1. C Difficile Diarrhea Improved Diarrhea, her Flagyl was discontinued but she had new C Diff test positive on July 18, since that time she is been on Metronidazole and Vancomycin she was started on Vancomycin 250 mg QID then increased to 500 mg QID after performed a new C Diff, she had positive test on 07/15, 07/18, 08/09 and 08/19 asked for ID specialist who started the patient on Fidaxomicin. continue with Diarrhea will continue Questran. 2. Total Self-care deficit will need SNF at discharge. Generalized weakness, refuse Physical Therapy and do not want to help herself with activity. 3. Nausea poor appetite on Marinol. improving slowly. 4. UTI Improved 5. Sacral Pressure Ulcer, wound care consulted, Barrier cream recommended turn every 2 hours. 6. OA chronic stable, Left hip x ray showed moderate to severe left hip OA with considerable osteophytosis and apparent large inferior joint body. MRI of the left hip ruled out osteomyelitis, Mild findings of Myelopathy, continue pain control, outpatient orthopedic follow up is recommended, Toradol added 08/06, decreased Longton. 7. Electrolyte derangement Hypokalemia Potassium 3.5 replaced and following. 8. Radiculopathy of Lumbar region. numbness on the Left anterior area of the thigh. TL spine MRI showed mild spinal stenosis at L3-4, moderate to moderate spinal stenosis at L4-5 and possibly with mild mass effect/impingement transiting left L5 nerve root with subarticular recess. Neurosurgery was consulted, ordered C-spine MRI which showed mild degenerative changes. Dr. Carballo discussed the case with Dr. Dennison, no intervention needed Left hip x-ray showed moderate to severe left hip osteoarthritis with considerable osteophytosis and apparent large inferior joint body. Continue pain control with oral Longton, outpatient orthopedic follow-up is recommended. MRI of the left hip ruled out osteomyelitis. Mild findings for Myelopathy, 9. Bilateral Lower extremity Edema chronic issues, Left worse than right. Bilateral Doppler ultrasound negative for DVT. Continue MADIE hose. //DVT prophylaxis : Lovenox subcutaneously. discussed with patient and nurse Parker Discharge Planning Awaiting for placement. is been difficult due to C Diff positive needs to be negative x 2. Gamaliel Bueno MD Aug 26, 2016 12:11
[2016-08-26] MEDS: DRONABINOL 5 MG CAP PO SCH ×2 (12:24→16:00)
[2016-08-26] MEDS: POTASSIUM CHLOR 10 MEQ PREMIX 100 ML IV SCH ×3 (13:53→16:48)
[2016-08-26 16:00] VITALS: BP 97/54; PULSE 65; RESP 18; TEMP 96.4; O2SAT 95
[2016-08-26] MEDS: ONDANSETRON HCL 4 MG/2 ML VIAL IV PUSH PRN ×2 (16:01→21:48)
[2016-08-26 20:00] VITALS: BP 128/59; PULSE 75; RESP 18; TEMP 96; O2SAT 99
[2016-08-26] MEDS: SERTRALINE HCL 100 MG TAB PO SCH (21:25)
[2016-08-26] MEDS: CETIRIZINE HCL 10 MG TAB PO SCH (21:26)
[2016-08-27 01:00] VITALS: BP 110/56; PULSE 77; RESP 20; TEMP 98.1; O2SAT 93
[2016-08-27] MEDS: CHOLESTYRAMINE 4 GM PACKET PO SCH ×3 (05:40→22:45)
[2016-08-27 06:45] VITALS: BP 115/62; PULSE 68; RESP 19; TEMP 98.8; O2SAT 94
[2016-08-27 08:00] VITALS: BP 126/60; PULSE 76; RESP 20; TEMP 96.5; O2SAT 95
[2016-08-27] MEDS: SODIUM CHLORIDE 0.9% FLUSH 5 ML FLUSH FLUSH SCH ×2 (09:00→21:00)
[2016-08-27] MEDS: ENOXAPARIN SODIUM 40 MG/0.4 ML SYRINGE SQ SCH (09:19)
[2016-08-27] MEDS: METOCLOPRAMIDE HCL 10 MG/2 ML VIAL IV PUSH SCH ×3 (09:19→17:21)
[2016-08-27] MEDS: LACTOBACILLUS ACIDOPHILUS TAB PO SCH ×2 (09:19→22:45)
[2016-08-27] MEDS: LISINOPRIL 10 MG TAB PO SCH (09:20)
[2016-08-27] MEDS: ACETAMINOPHEN/HYDROcodone 325 MG/5 MG TAB PO PRN ×3 (09:20→22:57)
[2016-08-27] MEDS: ASPIRIN EC 81 MG TABEC PO SCH (09:20)
[2016-08-27] MEDS: hydrOXYzine HCL 25 MG TAB PO PRN ×3 (09:20→22:56)
[2016-08-27] MEDS: FUROSEMIDE 20 MG TAB PO SCH (09:20)
[2016-08-27] MEDS: CALAMINE/PRAMOXINE LOTION 180 ML BTL TOPICAL SCH ×2 (09:21→22:47)
[2016-08-27] MEDS: MUPIROCIN 2% CREAM 15 GM TOPICAL SCH ×2 (09:22→22:47)
[2016-08-27] MEDS: ONDANSETRON HCL 4 MG/2 ML VIAL IV PUSH PRN ×3 (09:36→22:57)
[2016-08-27] MEDS: FIDAXOMICIN 200 MG TAB PO SCH ×2 (09:36→22:45)
[2016-08-27] MEDS: DRONABINOL 5 MG CAP PO SCH ×2 (10:19→17:21)
[2016-08-27 12:00] VITALS: BP 136/64; PULSE 72; RESP 20; TEMP 95.3; O2SAT 100
--- NOTE | 2016-08-27 14:04 | HHI.PR ---
Subjective Remarks Follow up C. difficile diarrhea, generalized weakness. Patient states that she is still having significant diarrhea. The electronic record shows only 2 documented bowel movements. She reports nausea and vomiting as well. Objective Vitals Vital Signs Date Time Temp Pulse Resp B/P Pulse Ox O2 Delivery O2 Flow Rate FiO2 08/27/16 12:00 95.3 72 20 136/64 100 08/27/16 08:00 96.5 76 20 126/60 95 08/27/16 06:45 98.8 68 19 115/62 94 08/27/16 05:27 18 08/27/16 01:00 98.1 77 20 110/56 93 08/26/16 20:00 96.0 75 18 128/59 99 08/26/16 16:00 96.4 65 18 97/54 95 I/O 08/26/16 08/26/16 08/26/16 08/27/16 08/27/16 08/27/16 07:00 15:00 23:00 07:00 15:00 23:00 Intake Total 480 ml 700 ml 600 ml Balance 480 ml 700 ml 600 ml Intake Oral 480 ml 700 ml 600 ml # Voids 3 4 2 # Bowel Movements 1 2 0 Result Diagram: 08/27/16 0640 Imaging Last Impressions Hip MRI 07/05/16 0000 Signed Impressions: Service Date/Time: Tuesday, July 05, 2016 10:51 - CONCLUSION: 1. There is osteopenia primary degenerative changes at both hips, left greater than right. 2. Prominent osteophyte along the inferior articulating surface of the proximal left femur. 3. Nonspecific edema in the gluteus and hamstring muscles. 4. No acute bony fracture. Javier Fishman MD Lower Extremity Ultrasound 06/29/16 0000 Signed Impressions: Service Date/Time: Wednesday, June 29, 2016 10:07 - CONCLUSION: Negative for deep venous thrombosis. Alfredo Sanders MD FACR Cervical Spine MRI 06/27/16 0000 Signed Impressions: Service Date/Time: Monday, June 27, 2016 11:09 - CONCLUSION: Mild degenerative changes otherwise unremarkable cervical spine. Anselmo Leavitt MD Thoracic Spine MRI 06/25/16 0000 Signed Impressions: Service Date/Time: June 19:36 - CONCLUSION: 1. No fracture or subluxation of the thoracic spine. 2. Mild and fairly diffuse degenerative changes as above. 3. Mild left foraminal encroachment at T8/T9 and T9/T10. 4. No significant spinal stenosis at any level. 5. Incidentally seen tiny right and small left pleural effusions, nonspecific. Jeevan Arreola MD Lumbar Spine MRI 06/25/16 0000 Signed Impressions: Service Date/Time: June 19:36 - CONCLUSION: 1. Multilevel lumbar degenerative changes as detailed above. 2. Mild spinal stenosis at L3/L4 without evidence of transiting nerve root impingement. 3. Mild to moderate spinal stenosis at L4/L5 and possibly with mild mass effect/impingement on the transiting left L5 nerve root within the subarticular recess. 4. Mild bilateral foraminal encroachment L3/L4 and L4/L5. Mild to moderate bilateral foraminal encroachment at L5/S1. 5. No fracture or subluxation of the lumbar spine. Jeevan Arreola MD Hip and Pelvis X-Ray 06/25/16 0000 Signed Impressions: Service Date/Time: June 20:27 - CONCLUSION: Moderate to severe left hip' right is with considerable osteophytosis and an apparent large inferior joint body. No fracture or subluxation. Jeevan Arreola MD Chest X-Ray 06/23/16 1402 Signed Impressions: Service Date/Time: Thursday, June 23, 2016 14:13 - CONCLUSION: Normal examination. Elías Moreno MD Objective Remarks General: Obese female in no acute distress. Heart: Regular rate and rhythm. No murmur. Lungs: Clear to auscultation bilaterally. No wheezes, rales, or rhonchi. Breathing is nonlabored. Abdomen: Soft, nontender, nondistended. Extremities: No lower extremity edema. Psych: Alert and oriented. Procedures none Urinary Catheter: No Vascular Central Line Catheter: No A/P Problem List: (1) C. difficile diarrhea ICD Code: A04.7 Status: Acute (2) Total self-care deficit ICD Code: R41.89 Status: Acute (3) UTI (urinary tract infection) ICD Code: N39.0 Status: Resolved (4) Sacral pressure ulcer ICD Code: L89.159 Status: Chronic (5) Arthritis ICD Code: M19.90 Status: Chronic (6) Oral thrush ICD Code: B37.0 Status: Acute (7) Subclinical hypothyroidism ICD Code: E03.9 Status: Acute (8) Radiculopathy of lumbar region ICD Code: M54.16 Status: Acute (9) Antibiotic-induced allergic rash ICD Code: T36.91XA Status: Resolved (10) Cellulitis ICD Code: L03.90 Status: Resolved (11) Bilateral lower extremity edema ICD Code: R60.0 Status: Chronic (12) CKD (chronic kidney disease), stage III ICD Code: N18.3 Status: Acute Assessment and Plan 1. C. difficile diarrhea: Improved. Has been treated with Flagyl, oral vancomycin. Appreciate infectious disease recommendations. Continue Fidaxomicin. 2. Generalized weakness: Continue physical therapy. Will need SNF at discharge. 3. Nausea, poor appetite: Continue Marinol. 4. UTI: Improved. 5. Sacral pressure ulcer: Appreciate wound care recommendations. Turn patient every 2 hours. 6. Osteoarthritis: Chronic, stable. 7. Hypokalemia: Continue potassium supplementation. 8. Lumbar radiculopathy: Appreciate neurosurgery recommendations. No surgical intervention recommended at this time. 9. Bilateral lower extremity edema: Chronic. Bilateral Doppler ultrasound negative for DVT. Continue MADIE hose. 10. DVT prophylaxis: Lovenox. Discharge Planning Awaiting placement. Patient needs 2 consecutive negative C. difficile tests. Problem Qualifiers (1) Sacral pressure ulcer: Qualified Code: L89.151 - Decubitus ulcer of sacral region, stage 1 (2) Cellulitis: Qualified Code: L03.818 - Cellulitis of other specified site Jairo eVlazquez MD Aug 27, 2016 14:04
[2016-08-27 16:00] VITALS: BP 132/61; PULSE 70; RESP 20; TEMP 97; O2SAT 100
[2016-08-27 20:00] VITALS: BP 123/59; PULSE 70; RESP 18; TEMP 96.3; O2SAT 96
[2016-08-27] MEDS: CETIRIZINE HCL 10 MG TAB PO SCH (22:45)
[2016-08-27] MEDS: SERTRALINE HCL 100 MG TAB PO SCH (22:45)
[2016-08-28] VITALS: BP 100/55; PULSE 76; RESP 16; TEMP 96.8; O2SAT 94
[2016-08-28 05:24] VITALS: BP 119/57; PULSE 72; RESP 16; TEMP 96.6; O2SAT 99
[2016-08-28] MEDS: CHOLESTYRAMINE 4 GM PACKET PO SCH ×3 (06:00→22:48)
[2016-08-28] MEDS: ONDANSETRON HCL 4 MG/2 ML VIAL IV PUSH PRN ×3 (06:12→23:58)
[2016-08-28] MEDS: hydrOXYzine HCL 25 MG TAB PO PRN ×3 (06:12→22:57)
[2016-08-28] MEDS: ACETAMINOPHEN/HYDROcodone 325 MG/5 MG TAB PO PRN ×3 (06:13→22:49)
[2016-08-28 07:12] LABS: BICARBONATE 26.2 MEQ/L (21.0-32.0)
[2016-08-28 07:14] LABS: AUTOMATED NEUTROPHIL # 2.8 TH/MM3 (1.8-7.7); BASOPHIL # 0.1 TH/MM3 (0-0.2); EOSINOPHIL % 14.4 % (0.0-4.0); HEMATOCRIT 23.3 % (35.0-46.0); LYMPH % 34.6 % (9.0-44.0); LYMPHOCYTE # 2.3 TH/MM3 (1.0-4.8); MEAN CELL VOLUME 83.7 FL (80.0-100.0); MEAN CORPUSCULAR HEMOGLOBIN 28.3 PG (27.0-34.0); MEAN CORPUSCULAR HGB CONC 33.9 % (32.0-36.0); MONO % 8.5 % (0.0-8.0); NEUT % 41.5 % (16.0-70.0); PLATELET COUNT 203 TH/MM3 (150-450); RED BLOOD COUNT 2.79 MIL/MM3 (4.00-5.30); RED CELL DISTRIBUTION WIDTH 18.3 % (11.6-17.2); WHITE BLOOD COUNT 6.8 TH/MM3 (4.0-11.0)
[2016-08-28 07:17] LABS: HEMO FLAGS AUTO DIFF
[2016-08-28 07:18] LABS: POTASSIUM 4.2 MEQ/L (3.5-5.1)
[2016-08-28 08:00] VITALS: BP 116/62; PULSE 69; RESP 20; TEMP 96.4; O2SAT 98
[2016-08-28 08:19] LABS: TARGET CELLS 1+ (NORMAL)
[2016-08-28 08:20] LABS: KERATOCYTES OCC (NORMAL); SCAN/DIFF AUTO DIFF CONFIRMED
[2016-08-28] MEDS: SODIUM CHLORIDE 0.9% FLUSH 5 ML FLUSH FLUSH SCH ×2 (09:00→23:05)
[2016-08-28] MEDS: LACTOBACILLUS ACIDOPHILUS TAB PO SCH ×2 (09:48→22:49)
[2016-08-28] MEDS: FUROSEMIDE 20 MG TAB PO SCH (09:48)
[2016-08-28] MEDS: FIDAXOMICIN 200 MG TAB PO SCH ×2 (09:48→22:49)
[2016-08-28] MEDS: ASPIRIN EC 81 MG TABEC PO SCH (09:48)
[2016-08-28] MEDS: LISINOPRIL 10 MG TAB PO SCH (09:48)
[2016-08-28] MEDS: ENOXAPARIN SODIUM 40 MG/0.4 ML SYRINGE SQ SCH (09:48)
[2016-08-28] MEDS: METOCLOPRAMIDE HCL 10 MG/2 ML VIAL IV PUSH SCH ×3 (09:49→16:41)
[2016-08-28] MEDS: MUPIROCIN 2% CREAM 15 GM TOPICAL SCH ×2 (09:49→23:04)
[2016-08-28] MEDS: CALAMINE/PRAMOXINE LOTION 180 ML BTL TOPICAL SCH ×2 (09:49→23:05)
--- NOTE | 2016-08-28 11:48 | HHI.PR ---
Subjective Remarks Follow up C. difficile diarrhea, generalized weakness. Patient states that she feels "terrible". Still having diarrhea. She had a large loose bowel movement this morning. Denies chest pain. Reports occasional cough, but no dyspnea. Objective Vitals Vital Signs Date Time Temp Pulse Resp B/P Pulse Ox O2 Delivery O2 Flow Rate FiO2 08/28/16 08:00 96.4 69 20 116/62 98 08/28/16 05:24 96.6 72 16 119/57 99 08/28/16 00:00 96.8 76 16 100/55 94 08/27/16 20:00 96.3 70 18 123/59 96 08/27/16 16:00 97.0 70 20 132/61 100 08/27/16 12:00 95.3 72 20 136/64 100 I/O 08/27/16 08/27/16 08/27/16 08/28/16 08/28/16 08/28/16 07:00 15:00 23:00 07:00 15:00 23:00 Intake Total 600 ml Output Total 1 ml Balance 600 ml -1 ml Intake Oral 600 ml Output Urine Total 1 ml # Voids 2 # Bowel Movements 0 0 Result Diagram: 08/28/16 0608 08/28/16 0608 Imaging Last Impressions Hip MRI 07/05/16 0000 Signed Impressions: Service Date/Time: Tuesday, July 05, 2016 10:51 - CONCLUSION: 1. There is osteopenia primary degenerative changes at both hips, left greater than right. 2. Prominent osteophyte along the inferior articulating surface of the proximal left femur. 3. Nonspecific edema in the gluteus and hamstring muscles. 4. No acute bony fracture. Javier Fishman MD Lower Extremity Ultrasound 06/29/16 0000 Signed Impressions: Service Date/Time: Wednesday, June 29, 2016 10:07 - CONCLUSION: Negative for deep venous thrombosis. Alfredo Sanders MD FACR Cervical Spine MRI 06/27/16 0000 Signed Impressions: Service Date/Time: Monday, June 27, 2016 11:09 - CONCLUSION: Mild degenerative changes otherwise unremarkable cervical spine. Anselmo Leavitt MD Thoracic Spine MRI 06/25/16 0000 Signed Impressions: Service Date/Time: June 19:36 - CONCLUSION: 1. No fracture or subluxation of the thoracic spine. 2. Mild and fairly diffuse degenerative changes as above. 3. Mild left foraminal encroachment at T8/T9 and T9/T10. 4. No significant spinal stenosis at any level. 5. Incidentally seen tiny right and small left pleural effusions, nonspecific. Jeevan Arreola MD Lumbar Spine MRI 06/25/16 0000 Signed Impressions: Service Date/Time: June 19:36 - CONCLUSION: 1. Multilevel lumbar degenerative changes as detailed above. 2. Mild spinal stenosis at L3/L4 without evidence of transiting nerve root impingement. 3. Mild to moderate spinal stenosis at L4/L5 and possibly with mild mass effect/impingement on the transiting left L5 nerve root within the subarticular recess. 4. Mild bilateral foraminal encroachment L3/L4 and L4/L5. Mild to moderate bilateral foraminal encroachment at L5/S1. 5. No fracture or subluxation of the lumbar spine. Jeevan Arreola MD Hip and Pelvis X-Ray 06/25/16 0000 Signed Impressions: Service Date/Time: June 20:27 - CONCLUSION: Moderate to severe left hip' right is with considerable osteophytosis and an apparent large inferior joint body. No fracture or subluxation. Jeevan Arreola MD Chest X-Ray 06/23/16 1402 Signed Impressions: Service Date/Time: Thursday, June 23, 2016 14:13 - CONCLUSION: Normal examination. Elías Moreno MD Objective Remarks General: Obese female in no acute distress. Heart: Regular rate and rhythm. No murmur. Lungs: Clear to auscultation bilaterally. No wheezes, rales, or rhonchi. Breathing is nonlabored. Abdomen: Soft, nontender, nondistended. Extremities: No lower extremity edema. Psych: Alert and oriented. Procedures none Urinary Catheter: No Vascular Central Line Catheter: No A/P Problem List: (1) C. difficile diarrhea ICD Code: A04.7 Status: Acute (2) Total self-care deficit ICD Code: R41.89 Status: Acute (3) UTI (urinary tract infection) ICD Code: N39.0 Status: Resolved (4) Sacral pressure ulcer ICD Code: L89.159 Status: Chronic (5) Arthritis ICD Code: M19.90 Status: Chronic (6) Oral thrush ICD Code: B37.0 Status: Acute (7) Subclinical hypothyroidism ICD Code: E03.9 Status: Acute (8) Radiculopathy of lumbar region ICD Code: M54.16 Status: Acute (9) Antibiotic-induced allergic rash ICD Code: T36.91XA Status: Resolved (10) Cellulitis ICD Code: L03.90 Status: Resolved (11) Bilateral lower extremity edema ICD Code: R60.0 Status: Chronic (12) CKD (chronic kidney disease), stage III ICD Code: N18.3 Status: Acute Assessment and Plan 1. C. difficile diarrhea: Has been treated with Flagyl, oral vancomycin. Appreciate infectious disease recommendations. Continue Fidaxomicin until . Patient still reporting diarrhea. 2. Generalized weakness: Continue physical therapy. Will need SNF at discharge. 3. Nausea, poor appetite: Continue Marinol. 4. UTI: Improved. 5. Sacral pressure ulcer: Appreciate wound care recommendations. Turn patient every 2 hours. 6. Osteoarthritis: Chronic, stable. 7. Hypokalemia: Improved. 8. Lumbar radiculopathy: Appreciate neurosurgery recommendations. No surgical intervention recommended at this time. 9. Bilateral lower extremity edema: Chronic. Bilateral Doppler ultrasound negative for DVT. Continue MADIE hose. 10. DVT prophylaxis: Lovenox. Discharge Planning Awaiting placement. Patient needs 2 consecutive negative C. difficile tests. Problem Qualifiers (1) Sacral pressure ulcer: Qualified Code: L89.151 - Decubitus ulcer of sacral region, stage 1 (2) Cellulitis: Qualified Code: L03.818 - Cellulitis of other specified site Jairo Velazquez MD Aug 28, 2016 11:48
[2016-08-28 12:00] VITALS: BP 107/67; PULSE 68; RESP 20; TEMP 96.1; O2SAT 100
[2016-08-28] MEDS: DRONABINOL 5 MG CAP PO SCH ×2 (12:02→16:41)
[2016-08-28 13:23] LABS: HEMATOCRIT 24.1 % (35.0-46.0)
[2016-08-28 13:26] LABS: REVIEW FLAG FINAL
[2016-08-28 16:00] VITALS: BP 134/57; PULSE 77; RESP 20; TEMP 95.3; O2SAT 94
[2016-08-28 20:00] VITALS: BP 105/52; PULSE 81; RESP 20; TEMP 97.4; O2SAT 92
[2016-08-28] MEDS: CETIRIZINE HCL 10 MG TAB PO SCH (22:48)
[2016-08-28] MEDS: SERTRALINE HCL 100 MG TAB PO SCH (22:49)
[2016-08-29] VITALS: BP 85/49; PULSE 80; RESP 18; TEMP 95.6; O2SAT 92
[2016-08-29] MEDS ORDERED: SODIUM CHLORID 0.9% 500 ML INJ 500 ML IV ONE (01:30)
[2016-08-29 04:00] VITALS: BP 100/57; PULSE 70; RESP 20; TEMP 97.3; O2SAT 94
[2016-08-29] MEDS: CHOLESTYRAMINE 4 GM PACKET PO SCH ×3 (05:39→22:00)
[2016-08-29] MEDS: ONDANSETRON HCL 4 MG/2 ML VIAL IV PUSH PRN ×2 (05:50→20:53)
[2016-08-29 07:31] LABS: AUTOMATED NEUTROPHIL # 6.7 TH/MM3 (1.8-7.7); BASOPHIL # 0.1 TH/MM3 (0-0.2); BASOPHIL % 0.7 % (0.0-2.0); EOSINOPHIL # 0.7 TH/MM3 (0-0.4); EOSINOPHIL % 6.6 % (0.0-4.0); HEMATOCRIT 23.6 % (35.0-46.0); LYMPH % 19.2 % (9.0-44.0); LYMPHOCYTE # 1.9 TH/MM3 (1.0-4.8); MEAN CELL VOLUME 81.7 FL (80.0-100.0); MEAN CORPUSCULAR HEMOGLOBIN 27.2 PG (27.0-34.0); MEAN CORPUSCULAR HGB CONC 33.3 % (32.0-36.0); NEUT % 66.5 % (16.0-70.0); PLATELET COUNT 268 TH/MM3 (150-450); RED BLOOD COUNT 2.89 MIL/MM3 (4.00-5.30); RED CELL DISTRIBUTION WIDTH 17.8 % (11.6-17.2); WHITE BLOOD COUNT 10.1 TH/MM3 (4.0-11.0)
[2016-08-29 07:38] LABS: HEMO FLAGS AUTO DIFF
[2016-08-29 08:00] VITALS: BP 100/54; PULSE 80; RESP 16; TEMP 97; O2SAT 98
[2016-08-29 08:02] LABS: BICARBONATE 25.8 MEQ/L (21.0-32.0); POTASSIUM 3.7 MEQ/L (3.5-5.1)
[2016-08-29] MEDS: CALAMINE/PRAMOXINE LOTION 180 ML BTL TOPICAL SCH ×2 (09:00→21:00)
[2016-08-29] MEDS: SODIUM CHLORIDE 0.9% FLUSH 5 ML FLUSH FLUSH SCH ×2 (09:00→20:42)
[2016-08-29] MEDS: FUROSEMIDE 20 MG TAB PO SCH (09:00)
[2016-08-29] MEDS: FIDAXOMICIN 200 MG TAB PO SCH ×2 (09:00→20:42)
[2016-08-29] MEDS: MUPIROCIN 2% CREAM 15 GM TOPICAL SCH ×2 (09:00→21:00)
[2016-08-29] MEDS: LISINOPRIL 10 MG TAB PO SCH (09:00)
[2016-08-29] MEDS: LACTOBACILLUS ACIDOPHILUS TAB PO SCH ×2 (09:11→20:43)
[2016-08-29] MEDS: ASPIRIN EC 81 MG TABEC PO SCH (09:11)
[2016-08-29] MEDS: METOCLOPRAMIDE HCL 10 MG/2 ML VIAL IV PUSH SCH ×3 (09:13→19:45)
[2016-08-29] MEDS: ENOXAPARIN SODIUM 40 MG/0.4 ML SYRINGE SQ SCH (09:13)
[2016-08-29] MEDS: DRONABINOL 5 MG CAP PO SCH ×2 (10:05→16:00)
[2016-08-29 10:59] LABS: OVALOCYTES 1+ (NORMAL); SCAN/DIFF AUTO DIFF CONFIRMED
--- NOTE | 2016-08-29 11:24 | HHI.PR ---
Subjective Remarks Follow-up C. difficile, generalized weakness. Patient reports nausea this morning. No bowel movements yet today. Blood pressure has been low. Objective Vitals Vital Signs Date Time Temp Pulse Resp B/P Pulse Ox O2 Delivery O2 Flow Rate FiO2 08/29/16 08:00 97.0 80 16 100/54 98 08/29/16 04:00 97.3 70 20 100/57 94 08/29/16 00:00 95.6 80 18 85/49 92 08/28/16 20:00 97.4 81 20 105/52 92 08/28/16 16:00 95.3 77 20 134/57 94 08/28/16 12:00 96.1 68 20 107/67 100 I/O 08/28/16 08/28/16 08/28/16 08/29/16 08/29/16 08/29/16 07:00 15:00 23:00 07:00 15:00 23:00 Intake Total 240 ml Output Total 2 ml Balance 238 ml Intake Oral 240 ml Stool Total 2 ml # Voids 2 2 # Bowel Movements 2 Result Diagram: 08/29/1670108/29/16701 Imaging Last Impressions Hip MRI 07/05/16 0000 Signed Impressions: Service Date/Time: Tuesday, July 05, 2016 10:51 - CONCLUSION: 1. There is osteopenia primary degenerative changes at both hips, left greater than right. 2. Prominent osteophyte along the inferior articulating surface of the proximal left femur. 3. Nonspecific edema in the gluteus and hamstring muscles. 4. No acute bony fracture. Javier Fishman MD Lower Extremity Ultrasound 06/29/16 0000 Signed Impressions: Service Date/Time: Wednesday, June 29, 2016 10:07 - CONCLUSION: Negative for deep venous thrombosis. Alfredo Sanders MD FACR Cervical Spine MRI 06/27/16 0000 Signed Impressions: Service Date/Time: Monday, June 27, 2016 11:09 - CONCLUSION: Mild degenerative changes otherwise unremarkable cervical spine. Anselmo Leavitt MD Thoracic Spine MRI 06/25/16 0000 Signed Impressions: Service Date/Time: June 19:36 - CONCLUSION: 1. No fracture or subluxation of the thoracic spine. 2. Mild and fairly diffuse degenerative changes as above. 3. Mild left foraminal encroachment at T8/T9 and T9/T10. 4. No significant spinal stenosis at any level. 5. Incidentally seen tiny right and small left pleural effusions, nonspecific. Jeevan Arreola MD Lumbar Spine MRI 06/25/16 0000 Signed Impressions: Service Date/Time: June 19:36 - CONCLUSION: 1. Multilevel lumbar degenerative changes as detailed above. 2. Mild spinal stenosis at L3/L4 without evidence of transiting nerve root impingement. 3. Mild to moderate spinal stenosis at L4/L5 and possibly with mild mass effect/impingement on the transiting left L5 nerve root within the subarticular recess. 4. Mild bilateral foraminal encroachment L3/L4 and L4/L5. Mild to moderate bilateral foraminal encroachment at L5/S1. 5. No fracture or subluxation of the lumbar spine. Jeevan Arreola MD Hip and Pelvis X-Ray 06/25/16 0000 Signed Impressions: Service Date/Time: June 20:27 - CONCLUSION: Moderate to severe left hip' right is with considerable osteophytosis and an apparent large inferior joint body. No fracture or subluxation. Jeevan Arreola MD Chest X-Ray 06/23/16 1402 Signed Impressions: Service Date/Time: Thursday, June 23, 2016 14:13 - CONCLUSION: Normal examination. Elías Moreno MD Objective Remarks General: Obese female in no acute distress. Heart: Regular rate and rhythm. No murmur. Lungs: Clear to auscultation bilaterally. No wheezes, rales, or rhonchi. Breathing is nonlabored. Abdomen: Soft, nontender, nondistended. Extremities: No lower extremity edema. Psych: Alert and oriented. Procedures none Urinary Catheter: No Vascular Central Line Catheter: No A/P Problem List: (1) C. difficile diarrhea ICD Code: A04.7 Status: Acute (2) Total self-care deficit ICD Code: R41.89 Status: Acute (3) UTI (urinary tract infection) ICD Code: N39.0 Status: Resolved (4) Sacral pressure ulcer ICD Code: L89.159 Status: Chronic (5) Arthritis ICD Code: M19.90 Status: Chronic (6) Oral thrush ICD Code: B37.0 Status: Acute (7) Subclinical hypothyroidism ICD Code: E03.9 Status: Acute (8) Radiculopathy of lumbar region ICD Code: M54.16 Status: Acute (9) Antibiotic-induced allergic rash ICD Code: T36.91XA Status: Resolved (10) Cellulitis ICD Code: L03.90 Status: Resolved (11) Bilateral lower extremity edema ICD Code: R60.0 Status: Chronic (12) CKD (chronic kidney disease), stage III ICD Code: N18.3 Status: Acute Assessment and Plan 1. C. difficile diarrhea: Has been treated with Flagyl, oral vancomycin. Appreciate infectious disease recommendations. Continue Fidaxomicin until . Patient has had no bowel movements today. 2. Generalized weakness: Continue physical therapy. Will need SNF at discharge. 3. Nausea, poor appetite: Continue Marinol. 4. UTI: Improved. 5. Sacral pressure ulcer: Appreciate wound care recommendations. Turn patient every 2 hours. 6. Osteoarthritis: Chronic, stable. 7. Hypokalemia: Improved. 8. Lumbar radiculopathy: Appreciate neurosurgery recommendations. No surgical intervention recommended at this time. 9. Bilateral lower extremity edema: Chronic. Bilateral Doppler ultrasound negative for DVT. Continue MADIE hose. 10. DVT prophylaxis: Lovenox. Discharge Planning Awaiting placement. Patient needs 2 consecutive negative C. difficile tests. Problem Qualifiers (1) Sacral pressure ulcer: Qualified Code: L89.151 - Decubitus ulcer of sacral region, stage 1 (2) Cellulitis: Qualified Code: L03.818 - Cellulitis of other specified site Jairo Velazquez MD Aug 29, 2016 11:24
[2016-08-29 12:00] VITALS: BP 93/53; PULSE 76; RESP 16; TEMP 97.6; O2SAT 96
[2016-08-29 16:00] VITALS: BP 115/57; PULSE 77; RESP 18; TEMP 97.4; O2SAT 94
[2016-08-29 20:00] VITALS: BP 110/54; PULSE 82; RESP 18; TEMP 98; O2SAT 95
[2016-08-29] MEDS: SERTRALINE HCL 100 MG TAB PO SCH (20:42)
[2016-08-29] MEDS: CETIRIZINE HCL 10 MG TAB PO SCH (20:43)
[2016-08-29] MEDS: ACETAMINOPHEN/HYDROcodone 325 MG/5 MG TAB PO PRN (20:53)
[2016-08-30] VITALS (7 sets, daily range): BP systolic 90–116; BP diastolic 50–65; PULSE 75–81; RESP 17–20; TEMP 96.1–98.6; O2SAT 94–97
[2016-08-30] MEDS: CHOLESTYRAMINE 4 GM PACKET PO SCH ×3 (06:01→22:00)
[2016-08-30] MEDS: METOCLOPRAMIDE HCL 10 MG/2 ML VIAL IV PUSH SCH ×3 (08:00→17:00)
[2016-08-30] MEDS: CALAMINE/PRAMOXINE LOTION 180 ML BTL TOPICAL SCH ×2 (09:00→22:00)
[2016-08-30] MEDS: FUROSEMIDE 20 MG TAB PO SCH (09:00)
[2016-08-30] MEDS: MUPIROCIN 2% CREAM 15 GM TOPICAL SCH ×2 (09:00→22:00)
[2016-08-30] MEDS: LISINOPRIL 10 MG TAB PO SCH (09:00)
[2016-08-30] MEDS: SODIUM CHLORIDE 0.9% FLUSH 5 ML FLUSH FLUSH SCH ×2 (09:00→22:00)
[2016-08-30] MEDS: ENOXAPARIN SODIUM 40 MG/0.4 ML SYRINGE SQ SCH (09:39)
[2016-08-30] MEDS: LACTOBACILLUS ACIDOPHILUS TAB PO SCH ×2 (09:41→22:00)
[2016-08-30] MEDS: ASPIRIN EC 81 MG TABEC PO SCH (09:41)
[2016-08-30] MEDS: FIDAXOMICIN 200 MG TAB PO SCH (09:41)
--- NOTE | 2016-08-30 09:58 | HHI.PR ---
Subjective Remarks Follow-up C. difficile, generalized weakness. BP running low. Patient reporting left hip pain, which is chronic. Had 1 bowel movement yesterday. Objective Vitals Vital Signs Date Time Temp Pulse Resp B/P Pulse Ox O2 Delivery O2 Flow Rate FiO2 08/30/16 08:00 98.6 80 19 106/50 96 08/30/16 04:00 97.3 75 18 111/55 95 08/30/16 00:00 98.2 80 18 115/57 95 08/29/16 20:00 98.0 82 18 110/54 95 08/29/16 16:00 97.4 77 18 115/57 94 08/29/16 12:00 97.6 76 16 93/53 96 I/O 08/29/16 08/29/16 08/29/16 08/30/16 08/30/16 08/30/16 07:00 15:00 23:00 07:00 15:00 23:00 # Voids 2 3 # Bowel Movements 2 Result Diagram: 08/29/16 0708/29/16701 Imaging Last Impressions Hip MRI 07/05/16 0000 Signed Impressions: Service Date/Time: Tuesday, July 05, 2016 10:51 - CONCLUSION: 1. There is osteopenia primary degenerative changes at both hips, left greater than right. 2. Prominent osteophyte along the inferior articulating surface of the proximal left femur. 3. Nonspecific edema in the gluteus and hamstring muscles. 4. No acute bony fracture. Javier Fishman MD Lower Extremity Ultrasound 06/29/16 0000 Signed Impressions: Service Date/Time: Wednesday, June 29, 2016 10:07 - CONCLUSION: Negative for deep venous thrombosis. Alfredo Sanders MD FACR Cervical Spine MRI 06/27/16 0000 Signed Impressions: Service Date/Time: Monday, June 27, 2016 11:09 - CONCLUSION: Mild degenerative changes otherwise unremarkable cervical spine. Anselmo Leavitt MD Thoracic Spine MRI 06/25/16 0000 Signed Impressions: Service Date/Time: June 19:36 - CONCLUSION: 1. No fracture or subluxation of the thoracic spine. 2. Mild and fairly diffuse degenerative changes as above. 3. Mild left foraminal encroachment at T8/T9 and T9/T10. 4. No significant spinal stenosis at any level. 5. Incidentally seen tiny right and small left pleural effusions, nonspecific. Jeevan Arreola MD Lumbar Spine MRI 06/25/16 0000 Signed Impressions: Service Date/Time: June 19:36 - CONCLUSION: 1. Multilevel lumbar degenerative changes as detailed above. 2. Mild spinal stenosis at L3/L4 without evidence of transiting nerve root impingement. 3. Mild to moderate spinal stenosis at L4/L5 and possibly with mild mass effect/impingement on the transiting left L5 nerve root within the subarticular recess. 4. Mild bilateral foraminal encroachment L3/L4 and L4/L5. Mild to moderate bilateral foraminal encroachment at L5/S1. 5. No fracture or subluxation of the lumbar spine. Jeevan Arreola MD Hip and Pelvis X-Ray 06/25/16 0000 Signed Impressions: Service Date/Time: June 20:27 - CONCLUSION: Moderate to severe left hip' right is with considerable osteophytosis and an apparent large inferior joint body. No fracture or subluxation. Jeevan Arreola MD Chest X-Ray 06/23/16 1402 Signed Impressions: Service Date/Time: Thursday, June 23, 2016 14:13 - CONCLUSION: Normal examination. Elías Moreno MD Objective Remarks General: Obese female in no acute distress. Heart: Regular rate and rhythm. No murmur. Lungs: Clear to auscultation bilaterally. No wheezes, rales, or rhonchi. Breathing is nonlabored. Abdomen: Soft, nontender, nondistended. Extremities: No lower extremity edema. Psych: Alert and oriented. Procedures none Urinary Catheter: No Vascular Central Line Catheter: No A/P Problem List: (1) C. difficile diarrhea ICD Code: A04.7 Status: Acute (2) Total self-care deficit ICD Code: R41.89 Status: Acute (3) UTI (urinary tract infection) ICD Code: N39.0 Status: Resolved (4) Sacral pressure ulcer ICD Code: L89.159 Status: Chronic (5) Arthritis ICD Code: M19.90 Status: Chronic (6) Oral thrush ICD Code: B37.0 Status: Acute (7) Subclinical hypothyroidism ICD Code: E03.9 Status: Acute (8) Radiculopathy of lumbar region ICD Code: M54.16 Status: Acute (9) Antibiotic-induced allergic rash ICD Code: T36.91XA Status: Resolved (10) Cellulitis ICD Code: L03.90 Status: Resolved (11) Bilateral lower extremity edema ICD Code: R60.0 Status: Chronic (12) CKD (chronic kidney disease), stage III ICD Code: N18.3 Status: Acute Assessment and Plan 1. C. difficile diarrhea: Has been treated with Flagyl, oral vancomycin. Appreciate infectious disease recommendations. Completes course of Fidaxomicin today. Diarrhea is much better. 2. Generalized weakness: Continue physical therapy. Will need SNF at discharge. 3. Nausea, poor appetite: Continue Marinol. 4. UTI: Improved. 5. Sacral pressure ulcer: Appreciate wound care recommendations. Turn patient every 2 hours. 6. Osteoarthritis: Chronic, stable. 7. Hypokalemia: Improved. 8. Lumbar radiculopathy: Appreciate neurosurgery recommendations. No surgical intervention recommended at this time. 9. Bilateral lower extremity edema: Chronic. Bilateral Doppler ultrasound negative for DVT. Continue MADIE hose. 10. DVT prophylaxis: Lovenox. Discharge Planning Will need SNF placement. Patient needs 2 consecutive negative C. difficile tests. Problem Qualifiers (1) Sacral pressure ulcer: Qualified Code: L89.151 - Decubitus ulcer of sacral region, stage 1 (2) Cellulitis: Qualified Code: L03.818 - Cellulitis of other specified site Jairo Velazquez MD Aug 30, 2016 09:58
[2016-08-30] MEDS ORDERED: NS + KCL 20 MEQ INJ 1,000 ML IV SCH (10:00)
[2016-08-30 10:13] LABS: AUTOMATED NEUTROPHIL # 4.3 TH/MM3 (1.8-7.7); BASOPHIL # 0.1 TH/MM3 (0-0.2); BASOPHIL % 0.6 % (0.0-2.0); EOSINOPHIL % 12.7 % (0.0-4.0); HEMATOCRIT 21.9 % (35.0-46.0); LYMPH % 25.3 % (9.0-44.0); MEAN CELL VOLUME 79.6 FL (80.0-100.0); MEAN CORPUSCULAR HEMOGLOBIN 26.9 PG (27.0-34.0); MEAN CORPUSCULAR HGB CONC 33.8 % (32.0-36.0); MONO % 7.6 % (0.0-8.0); NEUT % 53.8 % (16.0-70.0); PLATELET COUNT 256 TH/MM3 (150-450); RED BLOOD COUNT 2.75 MIL/MM3 (4.00-5.30); RED CELL DISTRIBUTION WIDTH 18.8 % (11.6-17.2); WHITE BLOOD COUNT 8.1 TH/MM3 (4.0-11.0)
[2016-08-30 10:25] LABS: HEMO FLAGS AUTO DIFF
[2016-08-30 10:41] LABS: BICARBONATE 26.9 MEQ/L (21.0-32.0); POTASSIUM 3.7 MEQ/L (3.5-5.1)
[2016-08-30] MEDS: DRONABINOL 5 MG CAP PO SCH ×2 (11:00→16:00)
[2016-08-30 11:14] LABS: SCAN/DIFF AUTO DIFF CONFIRMED; SPHEROCYTES OCC (NORMAL); TARGET CELLS 1+ (NORMAL)
[2016-08-30] MEDS: ONDANSETRON HCL 4 MG/2 ML VIAL IV PUSH PRN (18:11)
[2016-08-30] MEDS: SERTRALINE HCL 100 MG TAB PO SCH (22:00)
[2016-08-30] MEDS: CETIRIZINE HCL 10 MG TAB PO SCH (22:00)
[2016-08-30] MEDS: ACETAMINOPHEN/HYDROcodone 325 MG/5 MG TAB PO PRN (23:28)
[2016-08-30] MEDS: hydrOXYzine HCL 25 MG TAB PO PRN (23:28)
[2016-08-31 04:00] VITALS: BP_SYST 128; BP_SYST 138; BP_DIAS 70; BP_DIAS 76; PULSE 71; PULSE 87; RESP 20; TEMP 97.8; TEMP 98; O2SAT 96; O2SAT 97
[2016-08-31] MEDS: CHOLESTYRAMINE 4 GM PACKET PO SCH ×3 (06:23→22:03)
[2016-08-31 07:15] VITALS: BP 104/59; PULSE 77; RESP 18; TEMP 95.9; O2SAT 97
[2016-08-31 07:47] LABS: AUTOMATED NEUTROPHIL # 3.1 TH/MM3 (1.8-7.7); BASOPHIL % 0.4 % (0.0-2.0); BICARBONATE 23.2 MEQ/L (21.0-32.0); EOSINOPHIL # 0.8 TH/MM3 (0-0.4); EOSINOPHIL % 13.2 % (0.0-4.0); HEMATOCRIT 21.2 % (35.0-46.0); LYMPHOCYTE # 1.9 TH/MM3 (1.0-4.8); MEAN CELL VOLUME 80.8 FL (80.0-100.0); MEAN CORPUSCULAR HEMOGLOBIN 27.3 PG (27.0-34.0); MEAN CORPUSCULAR HGB CONC 33.7 % (32.0-36.0); MONO % 8.1 % (0.0-8.0); NEUT % 48.3 % (16.0-70.0); PLATELET COUNT 252 TH/MM3 (150-450); POTASSIUM 3.6 MEQ/L (3.5-5.1); RED BLOOD COUNT 2.63 MIL/MM3 (4.00-5.30); WHITE BLOOD COUNT 6.4 TH/MM3 (4.0-11.0)
[2016-08-31 08:14] LABS: HEMO FLAGS AUTO DIFF
[2016-08-31 09:03] LABS: KERATOCYTES OCC (NORMAL); SCAN/DIFF AUTO DIFF CONFIRMED; TARGET CELLS 1+ (NORMAL)
[2016-08-31] MEDS: FUROSEMIDE 20 MG TAB PO SCH (09:07)
[2016-08-31] MEDS: LISINOPRIL 10 MG TAB PO SCH (09:07)
[2016-08-31] MEDS: MUPIROCIN 2% CREAM 15 GM TOPICAL SCH ×2 (09:08→22:01)
[2016-08-31] MEDS: CALAMINE/PRAMOXINE LOTION 180 ML BTL TOPICAL SCH ×2 (09:08→21:00)
[2016-08-31] MEDS: ONDANSETRON HCL 4 MG/2 ML VIAL IV PUSH PRN ×3 (09:19→21:59)
[2016-08-31] MEDS: SODIUM CHLORIDE 0.9% FLUSH 5 ML FLUSH FLUSH SCH ×2 (09:20→22:00)
[2016-08-31] MEDS: LACTOBACILLUS ACIDOPHILUS TAB PO SCH ×2 (09:20→21:58)
[2016-08-31] MEDS: ENOXAPARIN SODIUM 40 MG/0.4 ML SYRINGE SQ SCH (09:20)
[2016-08-31] MEDS: ASPIRIN EC 81 MG TABEC PO SCH (09:20)
[2016-08-31] MEDS: METOCLOPRAMIDE HCL 10 MG/2 ML VIAL IV PUSH SCH ×3 (09:21→15:19)
[2016-08-31] MEDS: hydrOXYzine HCL 25 MG TAB PO PRN ×2 (09:31→19:00)
[2016-08-31 10:30] VITALS: BP 107/51; PULSE 75; RESP 18; TEMP 96.4; O2SAT 97
[2016-08-31] MEDS: DRONABINOL 5 MG CAP PO SCH ×2 (12:35→15:16)
[2016-08-31] MEDS: ACETAMINOPHEN/HYDROcodone 325 MG/5 MG TAB PO PRN (12:36)
--- NOTE | 2016-08-31 13:50 | HHI.PR ---
Subjective Remarks Follow up anemia, C. difficile, generalized weakness. The patient states that she feels "terrible". Feels weak. No chest pain or dyspnea. Objective Vitals Vital Signs Date Time Temp Pulse Resp B/P Pulse Ox O2 Delivery O2 Flow Rate FiO2 08/31/16 10:30 96.4 75 18 107/51 97 08/31/16 07:15 95.9 77 18 104/59 97 08/31/16 04:00 08/31/16 04:00 98.0 87 20 138/70 97 08/30/16 23:00 96.5 81 17 116/58 94 08/30/16 20:47 96.1 80 17 114/56 94 08/30/16 16:00 98.0 80 20 109/54 96 I/O 08/30/16 08/30/16 08/30/16 08/31/16 08/31/16 08/31/16 07:00 15:00 23:00 07:00 15:00 23:00 Intake Total 900 ml 240 ml Balance 900 ml 240 ml Intake Oral 900 ml 240 ml # Voids 3 3 1 2 1 # Bowel Movements 1 1 Result Diagram: 08/31/1616 08/31/16 0616 Imaging Last Impressions Hip MRI 07/05/16 0000 Signed Impressions: Service Date/Time: Tuesday, July 05, 2016 10:51 - CONCLUSION: 1. There is osteopenia primary degenerative changes at both hips, left greater than right. 2. Prominent osteophyte along the inferior articulating surface of the proximal left femur. 3. Nonspecific edema in the gluteus and hamstring muscles. 4. No acute bony fracture. Javier Fishman MD Lower Extremity Ultrasound 06/29/16 0000 Signed Impressions: Service Date/Time: Wednesday, June 29, 2016 10:07 - CONCLUSION: Negative for deep venous thrombosis. Alfredo Sanders MD FACR Cervical Spine MRI 06/27/16 0000 Signed Impressions: Service Date/Time: Monday, June 27, 2016 11:09 - CONCLUSION: Mild degenerative changes otherwise unremarkable cervical spine. Anselmo Leavitt MD Thoracic Spine MRI 06/25/16 0000 Signed Impressions: Service Date/Time: June 19:36 - CONCLUSION: 1. No fracture or subluxation of the thoracic spine. 2. Mild and fairly diffuse degenerative changes as above. 3. Mild left foraminal encroachment at T8/T9 and T9/T10. 4. No significant spinal stenosis at any level. 5. Incidentally seen tiny right and small left pleural effusions, nonspecific. Jeevan Arreola MD Lumbar Spine MRI 06/25/16 0000 Signed Impressions: Service Date/Time: June 19:36 - CONCLUSION: 1. Multilevel lumbar degenerative changes as detailed above. 2. Mild spinal stenosis at L3/L4 without evidence of transiting nerve root impingement. 3. Mild to moderate spinal stenosis at L4/L5 and possibly with mild mass effect/impingement on the transiting left L5 nerve root within the subarticular recess. 4. Mild bilateral foraminal encroachment L3/L4 and L4/L5. Mild to moderate bilateral foraminal encroachment at L5/S1. 5. No fracture or subluxation of the lumbar spine. Jeevan Arreola MD Hip and Pelvis X-Ray 06/25/16 0000 Signed Impressions: Service Date/Time: June 20:27 - CONCLUSION: Moderate to severe left hip' right is with considerable osteophytosis and an apparent large inferior joint body. No fracture or subluxation. Jeevan Arreola MD Chest X-Ray 06/23/16 1402 Signed Impressions: Service Date/Time: Thursday, June 23, 2016 14:13 - CONCLUSION: Normal examination. Elías Moreno MD Objective Remarks General: Obese female in no acute distress. Heart: Regular rate and rhythm. No murmur. Lungs: Clear to auscultation bilaterally. No wheezes, rales, or rhonchi. Breathing is nonlabored. Abdomen: Soft, nontender, nondistended. Extremities: Trace bilateral lower extremity edema. Psych: Alert and oriented. Procedures none Urinary Catheter: No Vascular Central Line Catheter: No A/P Problem List: (1) C. difficile diarrhea ICD Code: A04.7 Status: Acute (2) Total self-care deficit ICD Code: R41.89 Status: Acute (3) UTI (urinary tract infection) ICD Code: N39.0 Status: Resolved (4) Sacral pressure ulcer ICD Code: L89.159 Status: Chronic (5) Arthritis ICD Code: M19.90 Status: Chronic (6) Oral thrush ICD Code: B37.0 Status: Acute (7) Subclinical hypothyroidism ICD Code: E03.9 Status: Acute (8) Radiculopathy of lumbar region ICD Code: M54.16 Status: Acute (9) Antibiotic-induced allergic rash ICD Code: T36.91XA Status: Resolved (10) Cellulitis ICD Code: L03.90 Status: Resolved (11) Bilateral lower extremity edema ICD Code: R60.0 Status: Chronic (12) CKD (chronic kidney disease), stage III ICD Code: N18.3 Status: Acute Assessment and Plan 1. C. difficile diarrhea: Has been treated with Flagyl, oral vancomycin. Appreciate infectious disease recommendations. Completed course of Fidaxomicin. Diarrhea is much better. 2. Generalized weakness: Continue physical therapy. Will need SNF at discharge. 3. Nausea, poor appetite: Continue Marinol. 4. UTI: Improved. 5. Sacral pressure ulcer: Appreciate wound care recommendations. Turn patient every 2 hours. 6. Osteoarthritis: Chronic, stable. 7. Hypokalemia: Improved. 8. Lumbar radiculopathy: Appreciate neurosurgery recommendations. No surgical intervention recommended at this time. 9. Bilateral lower extremity edema: Chronic. Bilateral Doppler ultrasound negative for DVT. Continue MADIE hose. 10. DVT prophylaxis: SCDs, MADIE hose. Hold Lovenox secondary to GI bleed. 11. Anemia, GI bleed: Stool hemoccult is positive. Consult GI. Monitor H/H. Transfuse if necessary. Discharge Planning Will need SNF placement. Patient needs 2 consecutive negative C. difficile tests. Problem Qualifiers (1) Sacral pressure ulcer: Qualified Code: L89.151 - Decubitus ulcer of sacral region, stage 1 (2) Cellulitis: Qualified Code: L03.818 - Cellulitis of other specified site Jairo Velazquez MD Aug 31, 2016 13:50
[2016-08-31 14:59] LABS: HEMATOCRIT 25.5 % (35.0-46.0)
[2016-08-31 15:01] LABS: REVIEW FLAG FINAL
[2016-08-31 15:45] VITALS: BP 91/56; PULSE 78; RESP 18; TEMP 97.1; O2SAT 97
[2016-08-31] MEDS ORDERED: PEG (High)/E-LYTE SOLN 4000 ML BTL PO ONE (18:15)
[2016-08-31 20:00] VITALS: BP 95/48; PULSE 97; RESP 18; TEMP 97.5; O2SAT 95
--- NOTE | 2016-08-31 21:53 | MB ---
cc: HIRO WALTERS DATE OF CONSULTATION 08/31/16 DATE OF [address] Prince___ REASON FOR REFERRAL Anemia, possible GI bleed. HISTORY OF PRESENT ILLNESS Thank you for the consultation. A 70-year-old lady who has multiple medical problems including obesity. The patient has C. Diff that she has been struggling with for the last 3 months with multiple positivity and multiple regimen of antibiotics and including vancomycin and Flagyl. The patient just was seen recently by ID about 10 days ago for new recommendation. The patient feels weak and her hemoglobin was dropping down slowly and she had heme-positive stool. I was asked to see her because of that. The patient denied any GI symptoms as far as nausea, vomiting, hematemesis or hematochezia. She has diffuse abdominal discomfort from time to time and she has diarrhea, seems to be slowing down. She only have four bowel movement today which is loose and not completely watery according to her. She had gastric bypass. She does not remember if she had a colonoscopy. PAST MEDICAL HISTORY Significant for arthritis and anxiety gastric bypass, cholecystectomy, appendectomy, , hypertension. ALLERGIES DEMEROL, MACROBID, CODEINE. MEDICATIONS Reviewed in the chart. SOCIAL HISTORY No tobacco. Occasional alcohol. No drugs. FAMILY HISTORY Noncontributory. REVIEW OF SYSTEMS All 12-point negative except HPI. PHYSICAL EXAMINATION GENERAL: Alert, oriented, no acute distress. VITAL SIGNS: Stable at this time. No fever. The patient is morbidly obese, is almost bedridden. HEENT: Pupils round, reactive to light. NECK: Supple. CHEST: Clear to auscultation and precaution. CARDIAC: Regular rate and rhythm. ABDOMEN: Morbid obesity. Positive bowel sounds. No hepatosplenomegaly that could be appreciated but the patient is morbidly obese. EXTREMITIES: No clubbing or cyanosis. NEUROLOGICALLY: Intact. PSYCHOLOGICALLY: Appropriate. LABORATORY DATA C diff positive as late as 08/19. INR 1.0, white count is 6.4, hemoglobin 7.2 and then 8.1 this afternoon, platelet 252. Liver function test, mild elevation of AST of 43 but that is an old lab. ASSESSMENT/PLAN A 70-year-old lady who had used multiple antibiotics in the past. She developed C. Diff. The patient is on treatment. She still has some diarrhea. She is anemic. She dropped her hemoglobin since admission. She has gastric bypass which may be contributing to her anemia. Also, she has chronic renal insufficiency so I think her anemia is multifactorial with her heme-positive stool could be related to the C. Diff but because of the continuous drop of her hemoglobin I am going to do an upper endoscopy and a colonoscopy to ensure that there is no lesion causing that. I discussed with her the procedure and complication. She is agreeable to have it. This will be done tomorrow. We will prep her tonight. Further plan depends on the procedures finding. Meanwhile, we will continue treatment for C. Diff and overall the patient will need to go to rehab after discharge because of the morbid obesity and prolonged hospitalization. MD NORI Araya/OSCAR /6:17 PM /9:39 PM
[2016-08-31] MEDS: CETIRIZINE HCL 10 MG TAB PO SCH (21:59)
[2016-08-31] MEDS: SERTRALINE HCL 100 MG TAB PO SCH (21:59)
[2016-08-31 22:15] VITALS: BP 98/54
[2016-09-01] VITALS (7 sets, daily range): BP systolic 100–113; BP diastolic 45–67; PULSE 76–100; RESP 17–20; TEMP 95.5–98.3; O2SAT 95–100
[2016-09-01] MEDS: CHOLESTYRAMINE 4 GM PACKET PO SCH ×4 (04:00→20:40)
[2016-09-01] MEDS ORDERED: MAGNESIUM CITRATE SOLN 300 ML BTL PO ONE (05:45)
[2016-09-01] MEDS: ONDANSETRON HCL 4 MG/2 ML VIAL IV PUSH PRN ×3 (06:03→20:42)
[2016-09-01] MEDS: METOCLOPRAMIDE HCL 10 MG/2 ML VIAL IV PUSH SCH ×3 (08:00→17:00)
[2016-09-01] MEDS ORDERED: SOD PHOSPHATE/SOD BIPHOSPHATE (ADULT) ENEMA 133ML RECTAL ONE (08:00)
[2016-09-01] MEDS ORDERED: INSULIN HUMAN REGULAR 1,000 UNITS/10 ML VIAL SQ PRN (08:45)
[2016-09-01] MEDS ORDERED: POVIDONE IODINE 5% (ANTISEPSIS KIT) 4 APPLICATIONS EACH NARE PRN (08:45)
[2016-09-01] MEDS ORDERED: CHLORHEXIDINE GLUCONATE 2 % 1 PACK (2 CLOTHS) TOPICAL PRN (08:45)
[2016-09-01] MEDS ORDERED: LACTATED RINGER'S 1000 ML IV PRN (08:45)
[2016-09-01] MEDS ORDERED: SODIUM CHLORID 0.9% 500 ML IV PRN (08:45)
[2016-09-01] MEDS ORDERED: METOPROLOL TARTRATE 25 MG TAB PO PRN (08:45)
[2016-09-01] MEDS: ASPIRIN EC 81 MG TABEC PO SCH (08:49)
[2016-09-01] MEDS: FUROSEMIDE 20 MG TAB PO SCH (08:50)
[2016-09-01] MEDS: LACTOBACILLUS ACIDOPHILUS TAB PO SCH ×2 (08:52→20:36)
[2016-09-01] MEDS: SODIUM CHLORIDE 0.9% FLUSH 5 ML FLUSH FLUSH SCH ×2 (08:52→20:39)
[2016-09-01] MEDS: CALAMINE/PRAMOXINE LOTION 180 ML BTL TOPICAL SCH ×2 (09:00→20:40)
[2016-09-01] MEDS: LISINOPRIL 10 MG TAB PO SCH (09:15)
[2016-09-01] MEDS: MUPIROCIN 2% CREAM 15 GM TOPICAL SCH ×2 (09:16→20:40)
[2016-09-01] MEDS ORDERED: PROPOFOL 200 MG/20 ML AMP IV ONE (10:57)
--- NOTE | 2016-09-01 11:43 | HHI.GIFU ---
Subjective Remarks feels ok, no new issues, tolerated prep Objective Vitals I&O Vital Signs Date Time Temp Pulse Resp B/P Pulse Ox O2 Delivery O2 Flow Rate FiO2 09/01/16 10:27 97.1 77 20 113/54 97 09/01/16 08:00 97.1 77 20 113/54 97 09/01/16 04:00 97.5 85 20 113/51 100 09/01/16 00:00 98.3 88 20 101/67 99 08/31/16 22:15 98/54 08/31/16 20:00 97.5 97 18 95/48 95 08/31/16 15:45 97.1 78 18 91/56 97 08/31/16 13:59 16 I/O 08/31/16 08/31/16 08/31/16 09/01/16 09/01/16 09/01/16 07:00 15:00 23:00 07:00 15:00 23:00 Output Total 650 ml Balance -650 ml Output Urine Total 650 ml # Voids 2 1 3 # Bowel Movements 1 1 2 Laboratory Laboratory Tests Test 08/31/16 14:21 Hemoglobin 8.1 Hematocrit 25.5 Date/Time Procedure Status Source Growth 08/30/16 17:30 Stool Occult Blood ([facility]) - Final Complete Stool Stool HEMOCCULT POSITIVE Physical Exam HEENT: Pupils round and reactive to light; normocephalic; atraumatic; no jaundice. Throat is clear. very obese NECK: Neck is supple, no JVD, no lymphadenopathy. CHEST: Chest is clear to auscultation and percussion. CARDIAC: Regular rate and rhythm with no murmur gallop or rubs. ABDOMEN: Soft, nondistended, nontender; no hepatosplenomegaly; bowel sounds are present in all four quadrants. EXTREMITIES: No clubbing, cyanosis, or edema. SKIN: Normal; no rash; no jaundice. 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 Assessment and Plan Plan patient has anemia, hem positive stool, positive C diff. EGD showed esophageal ulcer Bx done, and anatomy C/W gastric bypass, colonoscopy showed diverticulosis, no sign of colitis recommendation 1- continue PPI 2- monitor PPI 3- continue Abx for c diff. 4- we will f/u as needed. Onofre Skyes MD Sep 01, 2016 11:43
--- NOTE | 2016-09-01 11:57 | HHI.PR ---
Subjective Remarks Follow up anemia, C. difficile, generalized weakness. Patient just returned from EGD. Was found to have an esophageal ulcer. She denies any further bleeding. She states that she feels very weak. Blood pressure is low. Objective Vitals Vital Signs Date Time Temp Pulse Resp B/P Pulse Ox O2 Delivery O2 Flow Rate FiO2 09/01/16 11:24 82 16 113/64 100 09/01/16 11:19 81 16 120/63 95 09/01/16 11:14 97.1 87 16 127/60 100 09/01/16 10:27 97.1 77 20 113/54 97 09/01/16 08:00 97.1 77 20 113/54 97 09/01/16 04:00 97.5 85 20 113/51 100 09/01/16 00:00 98.3 88 20 101/67 99 08/31/16 22:15 98/54 08/31/16 20:00 97.5 97 18 95/48 95 08/31/16 15:45 97.1 78 18 91/56 97 08/31/16 13:59 16 I/O 08/31/16 08/31/16 08/31/16 09/01/16 09/01/16 09/01/16 07:00 15:00 23:00 07:00 15:00 23:00 Intake Total 350 ml Output Total 650 ml Balance -650 ml 350 ml Other 350 ml Output Urine Total 650 ml # Voids 2 1 3 # Bowel Movements 1 1 2 Result Diagram: 08/31/16 1421 08/31/16 0616 Imaging Last Impressions Hip MRI 07/05/16 0000 Signed Impressions: Service Date/Time: Tuesday, July 05, 2016 10:51 - CONCLUSION: 1. There is osteopenia primary degenerative changes at both hips, left greater than right. 2. Prominent osteophyte along the inferior articulating surface of the proximal left femur. 3. Nonspecific edema in the gluteus and hamstring muscles. 4. No acute bony fracture. Javier Fishman MD Lower Extremity Ultrasound 06/29/16 0000 Signed Impressions: Service Date/Time: Wednesday, June 29, 2016 10:07 - CONCLUSION: Negative for deep venous thrombosis. Alfredo Sanders MD FACR Cervical Spine MRI 06/27/16 0000 Signed Impressions: Service Date/Time: Monday, June 27, 2016 11:09 - CONCLUSION: Mild degenerative changes otherwise unremarkable cervical spine. Anselmo Leavitt MD Thoracic Spine MRI 06/25/16 0000 Signed Impressions: Service Date/Time: June 19:36 - CONCLUSION: 1. No fracture or subluxation of the thoracic spine. 2. Mild and fairly diffuse degenerative changes as above. 3. Mild left foraminal encroachment at T8/T9 and T9/T10. 4. No significant spinal stenosis at any level. 5. Incidentally seen tiny right and small left pleural effusions, nonspecific. Jeevan Arreola MD Lumbar Spine MRI 06/25/16 0000 Signed Impressions: Service Date/Time: June 19:36 - CONCLUSION: 1. Multilevel lumbar degenerative changes as detailed above. 2. Mild spinal stenosis at L3/L4 without evidence of transiting nerve root impingement. 3. Mild to moderate spinal stenosis at L4/L5 and possibly with mild mass effect/impingement on the transiting left L5 nerve root within the subarticular recess. 4. Mild bilateral foraminal encroachment L3/L4 and L4/L5. Mild to moderate bilateral foraminal encroachment at L5/S1. 5. No fracture or subluxation of the lumbar spine. Jeevan Arreola MD Hip and Pelvis X-Ray 06/25/16 0000 Signed Impressions: Service Date/Time: June 20:27 - CONCLUSION: Moderate to severe left hip' right is with considerable osteophytosis and an apparent large inferior joint body. No fracture or subluxation. Jeevan Arreola MD Chest X-Ray 06/23/16 1402 Signed Impressions: Service Date/Time: Thursday, June 23, 2016 14:13 - CONCLUSION: Normal examination. Elías Moreno MD Objective Remarks General: Obese female in no acute distress. Heart: Regular rate and rhythm. No murmur. Lungs: Clear to auscultation bilaterally. No wheezes, rales, or rhonchi. Breathing is nonlabored. Abdomen: Soft, nontender, nondistended. Extremities: Trace bilateral lower extremity edema. Psych: Alert and oriented. Procedures none Urinary Catheter: No Vascular Central Line Catheter: No A/P Problem List: (1) C. difficile diarrhea ICD Code: A04.7 Status: Acute (2) Total self-care deficit ICD Code: R41.89 Status: Acute (3) UTI (urinary tract infection) ICD Code: N39.0 Status: Resolved (4) Sacral pressure ulcer ICD Code: L89.159 Status: Chronic (5) Arthritis ICD Code: M19.90 Status: Chronic (6) Oral thrush ICD Code: B37.0 Status: Acute (7) Subclinical hypothyroidism ICD Code: E03.9 Status: Acute (8) Radiculopathy of lumbar region ICD Code: M54.16 Status: Acute (9) Antibiotic-induced allergic rash ICD Code: T36.91XA Status: Resolved (10) Cellulitis ICD Code: L03.90 Status: Resolved (11) Bilateral lower extremity edema ICD Code: R60.0 Status: Chronic (12) CKD (chronic kidney disease), stage III ICD Code: N18.3 Status: Acute Assessment and Plan 1. C. difficile diarrhea: Has been treated with Flagyl, oral vancomycin. Appreciate infectious disease recommendations. Completed course of Fidaxomicin. Diarrhea is much better. 2. Generalized weakness: Continue physical therapy. Will need SNF at discharge. 3. Nausea, poor appetite: Continue Marinol. 4. UTI: Improved. 5. Sacral pressure ulcer: Appreciate wound care recommendations. Turn patient every 2 hours. 6. Osteoarthritis: Chronic, stable. 7. Hypokalemia: Improved. 8. Lumbar radiculopathy: Appreciate neurosurgery recommendations. No surgical intervention recommended at this time. 9. Bilateral lower extremity edema: Chronic. Bilateral Doppler ultrasound negative for DVT. Continue MADIE hose. 10. DVT prophylaxis: SCDs, MADIE hose. Hold Lovenox secondary to GI bleed. 11. Anemia, GI bleed: Stool hemoccult is positive. Appreciate GI recommendations. Status post EGD, which showed esophageal ulcer. Monitor H/H. Transfuse if necessary. 12. Hypotension: We'll give a 500 mL normal saline bolus. Discharge Planning Will need SNF placement. Patient needs 2 consecutive negative C. difficile tests. Problem Qualifiers (1) Sacral pressure ulcer: Qualified Code: L89.151 - Decubitus ulcer of sacral region, stage 1 (2) Cellulitis: Qualified Code: L03.818 - Cellulitis of other specified site [facility] D. MD Sep 01, 2016 11:57
--- NOTE | 2016-09-01 11:58 | GIPROC ---
[facility] [address] [facility]. 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 PREP QUALITY: fair ESTIMATED BLOOD LOSS: None CONSENT: The patient understands the risks and benefits of the procedure and understands that these risks include, but are not limited to: sedation, allergic reaction, infection, perforation and/or bleeding. Alternative means of evaluation and treatment include, among others: physical exam, x-rays, and/or surgical intervention. The patient elects to proceed with this endoscopic procedure. medical equipment was checked for proper function. Hand hygiene and appropriate measures for infection prevention was taken. After the risks, benefits and alternatives of the procedure were thoroughly explained, Informed consent was verified, confirmed and timeout was successfully executed by the treatment team. A digital exam revealed no abnormalities of the rectum The Pentax [id number] endoscope was introduced through the anus and advanced to the cecum, which was identified by both the appendix and ileocecal valve. The instrument was then slowly withdrawn as the colon was fully examined. COLON FINDINGS: Diverticolosis in left colon. The colonic mucosa appeared normal. The colon mucosa was otherwise normal. Retroflexed views revealed no abnormalities The scope was then completely withdrawn from the patient and the procedure terminated. ADVERSE EVENTS: There were no complications. IMPRESSIONS: 1. Diverticolosis in left colon 2. The colonic mucosa appeared normal 3. The colon mucosa was otherwise normal 4. Retroflexed views revealed no abnormalities 5. Revealed no abnormalities of the rectum RECOMMENDATIONS: 1. High fiber diet 2. Yearly hemoccult RECALL: Return 5 years Colonoscopy Onofre Sykes MD eSigned: Onofre Sykes MD 09/01/2016 11:57 AM cc:
[2016-09-01] MEDS ORDERED: SODIUM CHLORID 0.9% 500 ML INJ 500 ML IV ONE (12:00)
[2016-09-01] MEDS: DRONABINOL 5 MG CAP PO SCH ×2 (12:45→17:26)
[2016-09-01] MEDS: hydrOXYzine HCL 25 MG TAB PO PRN ×2 (12:45→20:38)
[2016-09-01] MEDS: PANTOPRAZOLE SOD 40 MG DELAYED RELEASE TAB PO SCH (12:47)
[2016-09-01 12:53] LABS: HEMATOCRIT 25.3 % (35.0-46.0); HEMO FLAGS AUTO DIFF; MEAN CORPUSCULAR HEMOGLOBIN 24.9 PG (27.0-34.0); PLATELET COUNT 374 TH/MM3 (150-450); RED BLOOD COUNT 3.24 MIL/MM3 (4.00-5.30); RED CELL DISTRIBUTION WIDTH 19.7 % (11.6-17.2); WHITE BLOOD COUNT 11.8 TH/MM3 (4.0-11.0)
[2016-09-01] MEDS ORDERED: DO NOT ADM ANY ANTICOAGULANT DRUGS PRN (13:00)
[2016-09-01 13:13] LABS: BICARBONATE 23.9 MEQ/L (21.0-32.0)
[2016-09-01 13:16] LABS: POTASSIUM 3.7 MEQ/L (3.5-5.1)
[2016-09-01 13:29] LABS: BANDS 1 % (0-6); CORRECTED NUCLEATED RBC 2 /100 WBC (0-0); EOSINOPHILS 3 % (0-4); NEUTROPHIL # MANUAL DIFF 8.1 TH/MM3 (1.8-7.7); PLATELET ESTIMATE SMEAR NORMAL (NORMAL); PLATELET MORPHOLOGY NORMAL (NORMAL); POLYS (SEG NEUTROPHILS) 68 % (16-70); SCAN/DIFF FINAL DIFF MANUAL; WBC DIFF SAMPLE 100
[2016-09-01] MEDS: NS + KCL 20 MEQ INJ 1,000 ML IV SCH (14:01)
[2016-09-01 19:03] LABS: REVIEW FLAG FINAL
[2016-09-01 19:06] LABS: HEMATOCRIT 20.8 % (35.0-46.0)
[2016-09-01] MEDS: CETIRIZINE HCL 10 MG TAB PO SCH (20:37)
[2016-09-01] MEDS: SERTRALINE HCL 100 MG TAB PO SCH (20:37)
[2016-09-02] VITALS (10 sets, daily range): BP systolic 97–123; BP diastolic 46–74; PULSE 68–75; RESP 16–20; TEMP 96.2–98; O2SAT 96–100
[2016-09-02] MEDS: NS + KCL 20 MEQ INJ 1,000 ML IV SCH ×3 (01:30→22:07)
[2016-09-02] MEDS: ONDANSETRON HCL 4 MG/2 ML VIAL IV PUSH PRN ×2 (01:35→13:14)
[2016-09-02] MEDS: CHOLESTYRAMINE 4 GM PACKET PO SCH ×3 (05:26→22:06)
[2016-09-02] MEDS: hydrOXYzine HCL 25 MG TAB PO PRN ×2 (05:31→17:12)
[2016-09-02] MEDS: SODIUM CHLORIDE 0.9% FLUSH 5 ML FLUSH FLUSH SCH ×2 (09:00→21:00)
[2016-09-02] MEDS: LISINOPRIL 10 MG TAB PO SCH (09:00)
[2016-09-02] MEDS: CALAMINE/PRAMOXINE LOTION 180 ML BTL TOPICAL SCH ×2 (09:00→22:08)
[2016-09-02] MEDS: FUROSEMIDE 20 MG TAB PO SCH (09:00)
[2016-09-02] MEDS: PANTOPRAZOLE SOD 40 MG DELAYED RELEASE TAB PO SCH (09:46)
[2016-09-02] MEDS: METOCLOPRAMIDE HCL 10 MG/2 ML VIAL IV PUSH SCH ×3 (09:46→17:00)
[2016-09-02] MEDS: LACTOBACILLUS ACIDOPHILUS TAB PO SCH ×2 (09:47→22:06)
[2016-09-02] MEDS: ASPIRIN EC 81 MG TABEC PO SCH (09:48)
--- NOTE | 2016-09-02 09:53 | HHI.PR ---
Subjective Remarks Follow up anemia, GI bleed, c. difficile, generalized weakness. Patient states that she feels very weak. She has had episodes of dizziness while lying in bed. Denies chest pain or dyspnea. Currently finishing up the second unit of PRBCs. Objective Vitals Vital Signs Date Time Temp Pulse Resp B/P Pulse Ox O2 Delivery O2 Flow Rate FiO2 09/02/16 08:57 97.6 71 16 97/59 96 09/02/16 05:38 96.2 71 20 108/60 96 09/02/16 04:37 97.8 71 17 115/67 96 09/02/16 01:17 97.0 75 18 108/62 99 09/02/16 01:02 97.5 72 18 106/63 97 09/02/16 00:13 97.6 74 17 118/55 100 09/01/16 21:17 97.6 100 17 102/45 97 09/01/16 16:00 96.9 76 20 102/49 95 09/01/16 12:00 95.5 83 20 100/66 95 09/01/16 11:24 82 16 113/64 100 09/01/16 11:19 81 16 120/63 95 09/01/16 11:14 97.1 87 16 127/60 100 09/01/16 10:27 97.1 77 20 113/54 97 I/O 09/01/16 09/01/16 09/01/16 09/02/16 09/02/16 09/02/16 07:00 15:00 23:00 07:00 15:00 23:00 Intake Total 350 ml 480 ml Output Total 650 ml Balance -650 ml 350 ml 480 ml Intake Oral 480 ml Other 350 ml Output Urine Total 650 ml # Voids 3 3 # Bowel Movements 3 Result Diagram: 09/01/16 1838 09/01/16 1237 Imaging Last Impressions Hip MRI 07/05/16 0000 Signed Impressions: Service Date/Time: Tuesday, July 05, 2016 10:51 - CONCLUSION: 1. There is osteopenia primary degenerative changes at both hips, left greater than right. 2. Prominent osteophyte along the inferior articulating surface of the proximal left femur. 3. Nonspecific edema in the gluteus and hamstring muscles. 4. No acute bony fracture. Javier Fishman MD Lower Extremity Ultrasound 06/29/16 0000 Signed Impressions: Service Date/Time: Wednesday, June 29, 2016 10:07 - CONCLUSION: Negative for deep venous thrombosis. Alfredo Sanders MD FACR Cervical Spine MRI 06/27/16 0000 Signed Impressions: Service Date/Time: Monday, June 27, 2016 11:09 - CONCLUSION: Mild degenerative changes otherwise unremarkable cervical spine. Anselmo Leavitt MD Thoracic Spine MRI 06/25/16 0000 Signed Impressions: Service Date/Time: June 19:36 - CONCLUSION: 1. No fracture or subluxation of the thoracic spine. 2. Mild and fairly diffuse degenerative changes as above. 3. Mild left foraminal encroachment at T8/T9 and T9/T10. 4. No significant spinal stenosis at any level. 5. Incidentally seen tiny right and small left pleural effusions, nonspecific. Jeevan Arreola MD Lumbar Spine MRI 06/25/16 0000 Signed Impressions: Service Date/Time: June 19:36 - CONCLUSION: 1. Multilevel lumbar degenerative changes as detailed above. 2. Mild spinal stenosis at L3/L4 without evidence of transiting nerve root impingement. 3. Mild to moderate spinal stenosis at L4/L5 and possibly with mild mass effect/impingement on the transiting left L5 nerve root within the subarticular recess. 4. Mild bilateral foraminal encroachment L3/L4 and L4/L5. Mild to moderate bilateral foraminal encroachment at L5/S1. 5. No fracture or subluxation of the lumbar spine. Jeevan Arreola MD Hip and Pelvis X-Ray 06/25/16 0000 Signed Impressions: Service Date/Time: June 20:27 - CONCLUSION: Moderate to severe left hip' right is with considerable osteophytosis and an apparent large inferior joint body. No fracture or subluxation. Jeevan Arreola MD Chest X-Ray 06/23/16 1402 Signed Impressions: Service Date/Time: Thursday, June 23, 2016 14:13 - CONCLUSION: Normal examination. Elías Moreno MD Objective Remarks General: Obese female in no acute distress. Appears pale. Heart: Regular rate and rhythm. No murmur. Lungs: Clear to auscultation bilaterally. No wheezes, rales, or rhonchi. Breathing is nonlabored. Abdomen: Soft, nontender, nondistended. Extremities: Trace bilateral lower extremity edema. Psych: Alert and oriented. Procedures none Urinary Catheter: No Vascular Central Line Catheter: No A/P Problem List: (1) C. difficile diarrhea ICD Code: A04.7 Status: Acute (2) Total self-care deficit ICD Code: R41.89 Status: Acute (3) UTI (urinary tract infection) ICD Code: N39.0 Status: Resolved (4) Sacral pressure ulcer ICD Code: L89.159 Status: Chronic (5) Arthritis ICD Code: M19.90 Status: Chronic (6) Oral thrush ICD Code: B37.0 Status: Acute (7) Subclinical hypothyroidism ICD Code: E03.9 Status: Acute (8) Radiculopathy of lumbar region ICD Code: M54.16 Status: Acute (9) Antibiotic-induced allergic rash ICD Code: T36.91XA Status: Resolved (10) Cellulitis ICD Code: L03.90 Status: Resolved (11) Bilateral lower extremity edema ICD Code: R60.0 Status: Chronic (12) CKD (chronic kidney disease), stage III ICD Code: N18.3 Status: Acute (13) Anemia due to acute blood loss ICD Code: D62 Status: Acute (14) GI bleed ICD Code: K92.2 Status: Acute Assessment and Plan 1. C. difficile diarrhea: Has been treated with Flagyl, oral vancomycin. Appreciate infectious disease recommendations. Completed course of Fidaxomicin. Diarrhea is improved. 2. Generalized weakness: Continue physical therapy. Will need SNF at discharge. 3. Nausea, poor appetite: Continue Marinol. 4. UTI: Improved. 5. Sacral pressure ulcer: Appreciate wound care recommendations. Turn patient every 2 hours. 6. Osteoarthritis: Chronic, stable. 7. Hypokalemia: Improved. 8. Lumbar radiculopathy: Appreciate neurosurgery recommendations. No surgical intervention recommended at this time. 9. Bilateral lower extremity edema: Chronic. Bilateral Doppler ultrasound negative for DVT. Continue MADIE hose. 10. DVT prophylaxis: SCDs, MADIE hose. Hold Lovenox secondary to GI bleed. 11. Anemia, GI bleed: Stool hemoccult is positive. Appreciate GI recommendations. Status post EGD, which showed esophageal ulcer. H/H decreased. Receiving transfusion. Labs are pending today. 12. Hypotension: Continue IV fluids. Patient currently receiving blood transfusion. Monitor BP. Discharge Planning Will need SNF placement. Patient needs 2 consecutive negative C. difficile tests. Problem Qualifiers (1) Sacral pressure ulcer: Qualified Code: L89.151 - Decubitus ulcer of sacral region, stage 1 (2) Cellulitis: Qualified Code: L03.818 - Cellulitis of other specified site Jairo Velazquez MD Sep 02, 2016 09:53
[2016-09-02] MEDS: MUPIROCIN 2% CREAM 15 GM TOPICAL SCH ×2 (09:54→22:08)
[2016-09-02] MEDS: DRONABINOL 5 MG CAP PO SCH ×2 (13:13→17:13)
[2016-09-02 16:45] LABS: AUTOMATED NEUTROPHIL # 4.2 TH/MM3 (1.8-7.7); BASOPHIL # 0.1 TH/MM3 (0-0.2); BASOPHIL % 0.7 % (0.0-2.0); EOSINOPHIL # 0.8 TH/MM3 (0-0.4); EOSINOPHIL % 10.1 % (0.0-4.0); HEMATOCRIT 29.7 % (35.0-46.0); LYMPH % 25.6 % (9.0-44.0); LYMPHOCYTE # 1.9 TH/MM3 (1.0-4.8); MEAN CELL VOLUME 79.6 FL (80.0-100.0); MEAN CORPUSCULAR HEMOGLOBIN 26.1 PG (27.0-34.0); MEAN CORPUSCULAR HGB CONC 32.8 % (32.0-36.0); MONO % 7.3 % (0.0-8.0); NEUT % 56.3 % (16.0-70.0); PLATELET COUNT 277 TH/MM3 (150-450); RED BLOOD COUNT 3.73 MIL/MM3 (4.00-5.30); WHITE BLOOD COUNT 7.5 TH/MM3 (4.0-11.0)
[2016-09-02 16:48] LABS: HEMO FLAGS AUTO DIFF
[2016-09-02 17:03] LABS: POTASSIUM 3.8 MEQ/L (3.5-5.1)
[2016-09-02 17:43] LABS: PLATELET ESTIMATE SMEAR NORMAL (NORMAL); PLATELET MORPHOLOGY NORMAL (NORMAL); SCAN/DIFF AUTO DIFF CONFIRMED; TARGET CELLS 1+ (NORMAL)
[2016-09-02] MEDS: SERTRALINE HCL 100 MG TAB PO SCH (22:06)
[2016-09-02] MEDS: CETIRIZINE HCL 10 MG TAB PO SCH (22:06)
[2016-09-03] VITALS: BP 151/72; PULSE 76; RESP 20; TEMP 96.7; O2SAT 98
[2016-09-03 04:00] VITALS: BP 145/77; PULSE 94; RESP 20; TEMP 96.5; O2SAT 98
[2016-09-03] MEDS: CHOLESTYRAMINE 4 GM PACKET PO SCH ×3 (05:57→22:24)
[2016-09-03 08:00] VITALS: BP 140/64; PULSE 73; RESP 17; TEMP 95.7; O2SAT 95
[2016-09-03] MEDS: SODIUM CHLORIDE 0.9% FLUSH 5 ML FLUSH FLUSH SCH ×2 (09:00→21:00)
[2016-09-03] MEDS: CALAMINE/PRAMOXINE LOTION 180 ML BTL TOPICAL SCH ×2 (09:00→21:00)
[2016-09-03] MEDS: MUPIROCIN 2% CREAM 15 GM TOPICAL SCH ×2 (09:00→22:27)
[2016-09-03] MEDS: FUROSEMIDE 20 MG TAB PO SCH (09:10)
[2016-09-03] MEDS: LACTOBACILLUS ACIDOPHILUS TAB PO SCH ×2 (09:10→22:25)
[2016-09-03] MEDS: METOCLOPRAMIDE HCL 10 MG/2 ML VIAL IV PUSH SCH ×3 (09:10→16:25)
[2016-09-03] MEDS: LISINOPRIL 10 MG TAB PO SCH (09:10)
[2016-09-03] MEDS: PANTOPRAZOLE SOD 40 MG DELAYED RELEASE TAB PO SCH (09:10)
[2016-09-03] MEDS: ASPIRIN EC 81 MG TABEC PO SCH (09:10)
[2016-09-03] MEDS: ACETAMINOPHEN/HYDROcodone 325 MG/5 MG TAB PO PRN ×3 (09:18→22:25)
[2016-09-03] MEDS: ONDANSETRON HCL 4 MG/2 ML VIAL IV PUSH PRN ×2 (09:18→18:46)
[2016-09-03] MEDS: hydrOXYzine HCL 25 MG TAB PO PRN ×2 (09:21→18:46)
[2016-09-03] MEDS: DRONABINOL 5 MG CAP PO SCH ×2 (11:00→16:25)
[2016-09-03] MEDS: NS + KCL 20 MEQ INJ 1,000 ML IV SCH (11:02)
[2016-09-03 12:00] VITALS: BP 118/65; PULSE 70; PULSE 75; RESP 17; TEMP 96.7; O2SAT 97
[2016-09-03 15:00] VITALS: BP 113/69; PULSE 76; RESP 20; TEMP 95.6; O2SAT 95
--- NOTE | 2016-09-03 18:09 | HHI.PR ---
Subjective Remarks Having mild cramping abdominal pain. requests regular diet. nausea earlier, no vomiting. Objective Vitals Vital Signs Date Time Temp Pulse Resp B/P Pulse Ox O2 Delivery O2 Flow Rate FiO2 09/03/16 15:00 95.6 76 20 113/69 95 09/03/16 12:00 75 09/03/16 12:00 96.7 70 17 118/65 97 09/03/16 08:00 95.7 73 17 140/64 95 09/03/16 04:00 96.5 94 20 145/77 98 09/03/16 00:00 96.7 76 20 151/72 98 09/02/16 20:00 68 09/02/16 20:00 96.2 71 20 109/63 98 09/02/16 19:01 71 I/O 09/02/16 09/02/16 09/02/16 09/03/16 09/03/16 09/03/16 07:00 15:00 23:00 07:00 15:00 23:00 Intake Total 480 ml 572 ml 880 ml 120 ml 960 ml Balance 480 ml 572 ml 880 ml 120 ml 960 ml Intake Oral 480 ml 880 ml 120 ml 960 ml Packed Cells 572 ml # Voids 3 1 1 3 # Bowel Movements 0 0 Result Diagram: 09/02/16 1629 09/02/16 162 Objective Remarks GENERAL: Well-nourished, well-developed obese CF patient. SKIN: Warm and dry. HEAD: Normocephalic. EYES: No scleral icterus. No injection or drainage. NECK: Supple, trachea midline. No JVD or lymphadenopathy. CARDIOVASCULAR: Regular rate and rhythm without murmurs, gallops, or rubs. RESPIRATORY: Breath sounds equal bilaterally. No accessory muscle use. GASTROINTESTINAL: Abdomen soft, non-tender, nondistended. BS nml. EXTREMITIES: No cyanosis, or edema. NEUROLOGICAL: Awake, alert, and oriented x 3. Non-focal. Procedures none A/P Problem List: (1) C. difficile diarrhea ICD Code: A04.7 Status: Acute (2) Total self-care deficit ICD Code: R41.89 Status: Acute (3) UTI (urinary tract infection) ICD Code: N39.0 Status: Resolved (4) Sacral pressure ulcer ICD Code: L89.159 Status: Chronic (5) Arthritis ICD Code: M19.90 Status: Chronic (6) Oral thrush ICD Code: B37.0 Status: Acute (7) Subclinical hypothyroidism ICD Code: E03.9 Status: Acute (8) Radiculopathy of lumbar region ICD Code: M54.16 Status: Acute (9) Antibiotic-induced allergic rash ICD Code: T36.91XA Status: Resolved (10) Cellulitis ICD Code: L03.90 Status: Resolved (11) Bilateral lower extremity edema ICD Code: R60.0 Status: Chronic (12) CKD (chronic kidney disease), stage III ICD Code: N18.3 Status: Acute (13) Anemia due to acute blood loss ICD Code: D62 Status: Acute (14) GI bleed ICD Code: K92.2 Status: Acute Assessment and Plan 1. C. difficile diarrhea: Has been treated with Flagyl, oral vancomycin. Appreciate infectious disease recommendations. Completed course of Fidaxomicin. Diarrhea is improved. 2. Generalized weakness: Continue physical therapy. Will need SNF at discharge. 3. Nausea, poor appetite: Continue Marinol. 4. UTI: Improved. 5. Sacral pressure ulcer: Appreciate wound care recommendations. Turn patient every 2 hours. 6. Osteoarthritis: Chronic, stable. 7. Hypokalemia: Improved. 8. Lumbar radiculopathy: Appreciate neurosurgery recommendations. No surgical intervention recommended at this time. 9. Bilateral lower extremity edema: Chronic. Bilateral Doppler ultrasound negative for DVT. Continue MADIE hose. 10. DVT prophylaxis: SCDs, MADIE hose. Hold Lovenox secondary to GI bleed. 11. Anemia, GI bleed: Stool hemoccult is positive. Appreciate GI recommendations. Status post EGD, which showed esophageal ulcer. H/H decreased. Receiving transfusion 2 units on 09/02. Hb 9 today. 12. Hypotension: resolved. HLIV. Problem Qualifiers (1) Sacral pressure ulcer: Qualified Code: L89.151 - Decubitus ulcer of sacral region, stage 1 (2) Cellulitis: Qualified Code: L03.818 - Cellulitis of other specified site Noy Willard MD Sep 03, 2016 18:09
[2016-09-03] MEDS: CETIRIZINE HCL 10 MG TAB PO SCH (22:25)
[2016-09-03] MEDS: SERTRALINE HCL 100 MG TAB PO SCH (22:25)
[2016-09-04] VITALS (9 sets, daily range): BP systolic 110–142; BP diastolic 59–93; PULSE 70–105; RESP 17–20; TEMP 95.4–97.4; O2SAT 94–100
[2016-09-04] MEDS: CHOLESTYRAMINE 4 GM PACKET PO SCH ×3 (06:00→20:52)
[2016-09-04] MEDS: LACTOBACILLUS ACIDOPHILUS TAB PO SCH ×2 (08:10→20:51)
[2016-09-04] MEDS: FUROSEMIDE 20 MG TAB PO SCH (08:10)
[2016-09-04] MEDS: LISINOPRIL 10 MG TAB PO SCH (08:10)
[2016-09-04] MEDS: PANTOPRAZOLE SOD 40 MG DELAYED RELEASE TAB PO SCH (08:10)
[2016-09-04] MEDS: ASPIRIN EC 81 MG TABEC PO SCH (08:10)
[2016-09-04] MEDS: MUPIROCIN 2% CREAM 15 GM TOPICAL SCH ×2 (08:11→21:00)
[2016-09-04] MEDS: ONDANSETRON HCL 4 MG/2 ML VIAL IV PUSH PRN ×2 (08:11→18:01)
[2016-09-04] MEDS: hydrOXYzine HCL 25 MG TAB PO PRN ×2 (08:11→18:02)
[2016-09-04] MEDS: CALAMINE/PRAMOXINE LOTION 180 ML BTL TOPICAL SCH ×2 (08:11→21:00)
[2016-09-04] MEDS: SODIUM CHLORIDE 0.9% FLUSH 5 ML FLUSH FLUSH SCH ×2 (08:11→20:52)
[2016-09-04] MEDS: ACETAMINOPHEN/HYDROcodone 325 MG/5 MG TAB PO PRN ×2 (08:11→18:01)
[2016-09-04] MEDS: METOCLOPRAMIDE HCL 10 MG/2 ML VIAL IV PUSH SCH ×3 (08:11→15:47)
[2016-09-04 08:36] LABS: AUTOMATED NEUTROPHIL # 3.5 TH/MM3 (1.8-7.7); BASOPHIL % 0.5 % (0.0-2.0); EOSINOPHIL # 0.8 TH/MM3 (0-0.4); EOSINOPHIL % 12.4 % (0.0-4.0); HEMATOCRIT 26.9 % (35.0-46.0); LYMPH % 26.3 % (9.0-44.0); LYMPHOCYTE # 1.7 TH/MM3 (1.0-4.8); MEAN CELL VOLUME 78.1 FL (80.0-100.0); MEAN CORPUSCULAR HEMOGLOBIN 26.2 PG (27.0-34.0); MEAN CORPUSCULAR HGB CONC 33.6 % (32.0-36.0); MONO % 7.4 % (0.0-8.0); NEUT % 53.4 % (16.0-70.0); PLATELET COUNT 262 TH/MM3 (150-450); RED BLOOD COUNT 3.44 MIL/MM3 (4.00-5.30); RED CELL DISTRIBUTION WIDTH 18.6 % (11.6-17.2); WHITE BLOOD COUNT 6.5 TH/MM3 (4.0-11.0)
[2016-09-04 08:42] LABS: HEMO FLAGS AUTO DIFF
[2016-09-04 09:01] LABS: BICARBONATE 24.4 MEQ/L (21.0-32.0); POTASSIUM 3.8 MEQ/L (3.5-5.1)
[2016-09-04 09:36] LABS: PLATELET ESTIMATE SMEAR NORMAL (NORMAL); PLATELET MORPHOLOGY NORMAL (NORMAL); SCAN/DIFF AUTO DIFF CONFIRMED; TARGET CELLS 1+ (NORMAL)
[2016-09-04] MEDS: DRONABINOL 5 MG CAP PO SCH ×2 (11:21→15:47)
--- NOTE | 2016-09-04 14:47 | HHI.PR ---
Subjective Remarks still with abd pain, epigastric, waxes and wanes, food makes it worse. no nausea or vomiting. Objective Vitals Vital Signs Date Time Temp Pulse Resp B/P Pulse Ox O2 Delivery O2 Flow Rate FiO2 09/04/16 12:00 96.6 74 19 118/62 100 09/04/16 10:15 70 09/04/16 08:00 96.7 83 17 142/93 100 09/04/16 04:00 96.5 73 20 139/65 95 09/04/16 02:00 77 09/04/16 00:00 96.1 73 20 132/62 96 09/03/16 23:40 19 09/03/16 15:00 95.6 76 20 113/69 95 I/O 09/03/16 09/03/16 09/03/16 09/04/16 09/04/16 09/04/16 07:00 15:00 23:00 07:00 15:00 23:00 Intake Total 120 ml 960 ml 480 ml 120 ml Balance 120 ml 960 ml 480 ml 120 ml Intake Oral 120 ml 960 ml 480 ml 120 ml # Voids 1 3 1 2 # Bowel Movements 0 0 0 Result Diagram: 09/04/16 0755 09/04/16 0755 Objective Remarks GENERAL: Well-nourished, well-developed obese CF patient. SKIN: Warm and dry. HEAD: Normocephalic. EYES: No scleral icterus. No injection or drainage. NECK: Supple, trachea midline. No JVD or lymphadenopathy. CARDIOVASCULAR: Regular rate and rhythm without murmurs, gallops, or rubs. RESPIRATORY: Breath sounds equal bilaterally. No accessory muscle use. GASTROINTESTINAL: Abdomen soft, non-tender, nondistended. BS nml. EXTREMITIES: No cyanosis, or edema. NEUROLOGICAL: Awake, alert, and oriented x 3. Non-focal. Procedures none A/P Problem List: (1) C. difficile diarrhea ICD Code: A04.7 Status: Acute (2) Total self-care deficit ICD Code: R41.89 Status: Acute (3) UTI (urinary tract infection) ICD Code: N39.0 Status: Resolved (4) Sacral pressure ulcer ICD Code: L89.159 Status: Chronic (5) Arthritis ICD Code: M19.90 Status: Chronic (6) Oral thrush ICD Code: B37.0 Status: Acute (7) Subclinical hypothyroidism ICD Code: E03.9 Status: Acute (8) Radiculopathy of lumbar region ICD Code: M54.16 Status: Acute (9) Antibiotic-induced allergic rash ICD Code: T36.91XA Status: Resolved (10) Cellulitis ICD Code: L03.90 Status: Resolved (11) Bilateral lower extremity edema ICD Code: R60.0 Status: Chronic (12) CKD (chronic kidney disease), stage III ICD Code: N18.3 Status: Acute (13) Anemia due to acute blood loss ICD Code: D62 Status: Acute (14) GI bleed ICD Code: K92.2 Status: Acute Assessment and Plan 1. C. difficile diarrhea: Has been treated with Flagyl, oral vancomycin. Appreciate infectious disease recommendations. Completed course of Fidaxomicin. Diarrhea is improved. 2. Generalized weakness: Continue physical therapy. Will need nursing facility at discharge. 3. Nausea, poor appetite: Continue Marinol. 4. UTI: Improved. 5. Sacral pressure ulcer: Appreciate wound care recommendations. Turn patient every 2 hours. 6. Osteoarthritis: Chronic, stable. 7. Hypokalemia: Improved. 8. Lumbar radiculopathy: Appreciate neurosurgery recommendations. No surgical intervention recommended at this time. 9. Bilateral lower extremity edema: Chronic. Bilateral Doppler ultrasound negative for DVT. Continue MADIE hose. 10. DVT prophylaxis: SCDs, MADIE hose. Hold Lovenox secondary to GI bleed. 11. Anemia, GI bleed: Stool hemoccult is positive. Appreciate GI recommendations. Status post EGD, which showed esophageal ulcer. H/H decreased. S/p transfusion 2 units on 09/02. Hb stable around 9 today. Continue protonix PO. epigastric pain like d/t ulcer, cont ppi. 12. Hypotension: resolved. 13. CKD - stage 3, cr stable. Discharge Planning Needs nursing facily placement, CM assisting, insurance difficulties currently. Problem Qualifiers (1) Sacral pressure ulcer: Qualified Code: L89.151 - Decubitus ulcer of sacral region, stage 1 (2) Cellulitis: Qualified Code: L03.818 - Cellulitis of other specified site Noy Willard MD Sep 04, 2016 14:47
[2016-09-04] MEDS: CETIRIZINE HCL 10 MG TAB PO SCH (20:52)
[2016-09-04] MEDS: SERTRALINE HCL 100 MG TAB PO SCH (20:52)
[2016-09-05] VITALS (7 sets, daily range): BP systolic 120–148; BP diastolic 58–83; PULSE 71–110; RESP 18–20; TEMP 96.8–99.5; O2SAT 92–100
[2016-09-05] MEDS: CHOLESTYRAMINE 4 GM PACKET PO SCH ×3 (06:00→20:38)
[2016-09-05] MEDS: SODIUM CHLORIDE 0.9% FLUSH 5 ML FLUSH FLUSH SCH ×2 (09:00→20:37)
[2016-09-05] MEDS: MUPIROCIN 2% CREAM 15 GM TOPICAL SCH ×2 (09:00→20:42)
[2016-09-05] MEDS: FUROSEMIDE 20 MG TAB PO SCH (09:00)
[2016-09-05] MEDS: ASPIRIN EC 81 MG TABEC PO SCH (09:00)
[2016-09-05] MEDS: LISINOPRIL 10 MG TAB PO SCH (09:00)
[2016-09-05] MEDS: CALAMINE/PRAMOXINE LOTION 180 ML BTL TOPICAL SCH ×2 (09:00→20:45)
[2016-09-05] MEDS: PANTOPRAZOLE SOD 40 MG DELAYED RELEASE TAB PO SCH (09:00)
[2016-09-05] MEDS: LACTOBACILLUS ACIDOPHILUS TAB PO SCH ×2 (09:00→20:37)
[2016-09-05] MEDS: METOCLOPRAMIDE HCL 10 MG/2 ML VIAL IV PUSH SCH ×3 (09:33→17:44)
[2016-09-05] MEDS: DRONABINOL 5 MG CAP PO SCH ×2 (11:00→16:00)
--- NOTE | 2016-09-05 14:10 | HHI.PR ---
Subjective Remarks Follow up epigastric pain. Patient seen and examined by myself and Dr. Willard. Patient still complaints of continual nausea with occasional vomiting. Poor appetite. Denies any fever, cough, or shortness of breath. Afebrile. Objective Vitals Vital Signs Date Time Temp Pulse Resp B/P Pulse Ox O2 Delivery O2 Flow Rate FiO2 09/05/16 12:15 97.1 80 19 144/73 100 09/05/16 08:10 97.7 86 19 134/80 97 09/05/16 04:00 96.8 71 20 147/69 94 09/05/16 00:00 97.2 110 20 120/58 93 09/04/16 20:54 97.4 76 20 129/65 94 09/04/16 19:00 73 09/04/16 16:00 95.4 105 19 110/59 94 I/O 09/04/16 09/04/16 09/04/16 09/05/16 09/05/16 09/05/16 07:00 15:00 23:00 07:00 15:00 23:00 Intake Total 120 ml 600 ml Balance 120 ml 600 ml Intake Oral 120 ml 600 ml # Voids 2 2 0 1 1 # Bowel Movements 0 1 Result Diagram: 09/04/16 0755 09/04/16 0755 Imaging Last Impressions Hip MRI 07/05/16 0000 Signed Impressions: Service Date/Time: Tuesday, July 05, 2016 10:51 - CONCLUSION: 1. There is osteopenia primary degenerative changes at both hips, left greater than right. 2. Prominent osteophyte along the inferior articulating surface of the proximal left femur. 3. Nonspecific edema in the gluteus and hamstring muscles. 4. No acute bony fracture. Javier Fishman MD Lower Extremity Ultrasound 06/29/16 0000 Signed Impressions: Service Date/Time: Wednesday, June 29, 2016 10:07 - CONCLUSION: Negative for deep venous thrombosis. Alfredo Sanders MD FACR Cervical Spine MRI 06/27/16 0000 Signed Impressions: Service Date/Time: Monday, June 27, 2016 11:09 - CONCLUSION: Mild degenerative changes otherwise unremarkable cervical spine. Anselmo Leavitt MD Thoracic Spine MRI 06/25/16 0000 Signed Impressions: Service Date/Time: June 19:36 - CONCLUSION: 1. No fracture or subluxation of the thoracic spine. 2. Mild and fairly diffuse degenerative changes as above. 3. Mild left foraminal encroachment at T8/T9 and T9/T10. 4. No significant spinal stenosis at any level. 5. Incidentally seen tiny right and small left pleural effusions, nonspecific. Jeevan Arreola MD Lumbar Spine MRI 06/25/16 0000 Signed Impressions: Service Date/Time: June 19:36 - CONCLUSION: 1. Multilevel lumbar degenerative changes as detailed above. 2. Mild spinal stenosis at L3/L4 without evidence of transiting nerve root impingement. 3. Mild to moderate spinal stenosis at L4/L5 and possibly with mild mass effect/impingement on the transiting left L5 nerve root within the subarticular recess. 4. Mild bilateral foraminal encroachment L3/L4 and L4/L5. Mild to moderate bilateral foraminal encroachment at L5/S1. 5. No fracture or subluxation of the lumbar spine. Jeevan Arreola MD Hip and Pelvis X-Ray 06/25/16 0000 Signed Impressions: Service Date/Time: June 20:27 - CONCLUSION: Moderate to severe left hip' right is with considerable osteophytosis and an apparent large inferior joint body. No fracture or subluxation. Jeevan Arreola MD Chest X-Ray 06/23/16 1402 Signed Impressions: Service Date/Time: Thursday, June 23, 2016 14:13 - CONCLUSION: Normal examination. Elías Moreno MD Objective Remarks GENERAL: Weak, obese female patient, in NAD. SKIN: Warm and dry. Sacral wound documented. HEENT: Normocephalic. Atraumatic. Pupils equal and round. No scleral icterus. Mucous membranes pink and moist. NECK: Supple. Trachea midline. No JVD. CARDIOVASCULAR: Regular rate and rhythm. S1, S2 noted. No murmur appreciated. RESPIRATORY: No accessory muscle use. Clear to auscultation. Breath sounds equal bilaterally. GASTROINTESTINAL: Abdomen soft, non-tender, nondistended. Normoactive bowel sounds x4. MUSCULOSKELETAL: No obvious deformities. Extremities without clubbing, cyanosis , or edema. NEUROLOGICAL: Awake and alert. No obvious cranial nerve deficits. Motor grossly within normal limits. Normal speech. PSYCHIATRIC: Appropriate mood and affect; insight and judgment normal Procedures none A/P Problem List: (1) Total self-care deficit ICD Code: R41.89 Status: Acute (2) Sacral pressure ulcer ICD Code: L89.159 Status: Chronic (3) Subclinical hypothyroidism ICD Code: E03.9 Status: Acute (4) Radiculopathy of lumbar region ICD Code: M54.16 Status: Acute Assessment and Plan Mrs. Arreola is a 70-year-old female with a known history of hypertension, obesity , arthritis, status post gastric bypass who presented to the ED on 06/23/16 with complaints of generalized weakness for two weeks. Apparently patient had been discharged on 06/08/16 with home health care and sustained a fall at home with progressive weakness. Supposedly she is wheelchair bound at home and unable to transfer independently. Poor appetite secondary to nausea and vomiting: Encourage PO intake. Zofran when necessary. Continue Reglan. Continue Marinol. Epigastric pain likely secondary to ulcer: Continue Protonix. Sacral pressure ulcer: Wound care following, appreciate recommendations. Encourage repositioning patient every 2 hours. Specialty mattress. C. difficile diarrhea: Diarrhea is currently improved. Last Tox PCR positive on 08/19. Has previously been treated with Flagyl, oral vancomycin. ID previously consulted on 08/20 with recommendations to discontinue Vanco and begin Dificid, completed course of Dificid. Continue Questran. Generalized weakness: Continue physical therapy. Will need nursing facility at discharge, case management following. Lumbar radiculopathy: Neurosurgery signed off, no surgical intervention recommended at this time. Control pain [place] PRN per pain scale. Anemia, GI bleed: Stool Hemoccult is positive on 08/30. Status post EGD, which showed esophageal ulcer. S/p transfusion 2 units on 09/02. Hb stable. Other chronic medical history includes osteoarthritis, CTD stage III are stable at this time. DVT prophylaxis: SCDs/TEDs. Written by Paty Kwan, acting as scribe for Dr. Willard on 09/05/16 at 14: 10. This note was transcribed by scribe. I, Dr. Noy Willard personally performed the history, physical exam, and medical decision making; and confirmed the accuracy of the information in the transcribed note. Authenticated by Dr. Noy Willard on 09/05/16 at 22:21. Problem Qualifiers (1) Sacral pressure ulcer: Qualified Code: L89.151 - Decubitus ulcer of sacral region, stage 1 Paty Kwan Sep 05, 2016 14:10 Noy Willard MD Sep 05, 2016 22:21 for DVT. Continue MADIE hose. Anemia, GI bleed: Stool hemoccult is positive. Appreciate GI recommendations. Status post EGD, which showed esophageal ulcer. H/H decreased. S/p transfusion 2 units on 09/02. Hb stable around 9 today. Continue protonix PO. epigastric pain like d/t ulcer, cont ppi. CKD - stage 3, cr stable. DVT prophylaxis: SCDs/TEDs. Written by Paty Kwan, acting as scribe for [] on 09/05/16 at 14:10. Problem Qualifiers (1) Sacral pressure ulcer: Qualified Code: L89.151 - Decubitus ulcer of sacral region, stage 1 (2) Cellulitis: Qualified Code: L03.818 - Cellulitis of other specified site Paty Kwan Sep 05, 2016 14:10
[2016-09-05] MEDS: SERTRALINE HCL 100 MG TAB PO SCH (20:37)
[2016-09-05] MEDS: CETIRIZINE HCL 10 MG TAB PO SCH (20:37)
[2016-09-05] MEDS: hydrOXYzine HCL 25 MG TAB PO PRN (20:38)
[2016-09-05] MEDS: ACETAMINOPHEN/HYDROcodone 325 MG/5 MG TAB PO PRN (20:41)
[2016-09-06 00:06] VITALS: BP 123/87; PULSE 81; RESP 16; TEMP 99; O2SAT 97
[2016-09-06 05:04] VITALS: BP 124/79; PULSE 76; RESP 18; TEMP 98.1; O2SAT 98
[2016-09-06] MEDS: CHOLESTYRAMINE 4 GM PACKET PO SCH ×3 (06:00→22:00)
[2016-09-06 08:40] VITALS: BP 127/74; PULSE 114; RESP 18; TEMP 97.9; O2SAT 93
[2016-09-06] MEDS: SODIUM CHLORIDE 0.9% FLUSH 5 ML FLUSH FLUSH SCH ×2 (09:00→21:00)
[2016-09-06] MEDS: LACTOBACILLUS ACIDOPHILUS TAB PO SCH ×2 (09:00→22:59)
[2016-09-06] MEDS: FUROSEMIDE 20 MG TAB PO SCH (09:00)
[2016-09-06] MEDS: PANTOPRAZOLE SOD 40 MG DELAYED RELEASE TAB PO SCH (09:00)
[2016-09-06] MEDS: LISINOPRIL 10 MG TAB PO SCH (09:00)
[2016-09-06] MEDS: CALAMINE/PRAMOXINE LOTION 180 ML BTL TOPICAL SCH ×2 (09:00→23:00)
[2016-09-06] MEDS: MUPIROCIN 2% CREAM 15 GM TOPICAL SCH ×2 (09:00→23:00)
[2016-09-06] MEDS: ASPIRIN EC 81 MG TABEC PO SCH (09:00)
[2016-09-06] MEDS: DRONABINOL 5 MG CAP PO SCH ×2 (11:00→16:00)
[2016-09-06 12:00] VITALS: BP 128/72; PULSE 92; RESP 19; TEMP 96.1; O2SAT 99
[2016-09-06] MEDS: METOCLOPRAMIDE HCL 10 MG/2 ML VIAL IV PUSH SCH ×3 (12:00→17:33)
--- NOTE | 2016-09-06 13:16 | HHI.PR ---
Subjective Remarks Follow up epigastric pain and nausea. Patient states that nausea has improved some. Denies abdominal pain at this time. Has had minimal PO intake. Spoke to RN , supposedly IV fell out overnight and patient is a 'difficult stick'. VAT consulted for IV placement so patient can receive ordered Reglan and Zofran IV. Patient has refused am medications due to nausea and inability to receive IV antiemetics. Denies any fever, cough or chest pain. Objective Vitals Vital Signs Date Time Temp Pulse Resp B/P Pulse Ox O2 Delivery O2 Flow Rate FiO2 09/06/16 12:00 96.1 92 19 128/72 99 09/06/16 08:40 97.9 114 18 127/74 93 09/06/16 05:04 98.1 76 18 124/79 98 09/06/16 00:06 99.0 81 16 123/87 97 09/05/16 23:00 81 09/05/16 20:33 99.5 80 18 120/69 99 09/05/16 16:00 97.2 100 18 148/83 92 I/O 09/05/16 09/05/16 09/05/16 09/06/16 09/06/16 09/06/16 07:00 15:00 23:00 07:00 15:00 23:00 # Voids 1 1 1 # Bowel Movements 0 Result Diagram: 09/04/16 0755 09/04/16 0755 Imaging Last Impressions Hip MRI 07/05/16 0000 Signed Impressions: Service Date/Time: Tuesday, July 05, 2016 10:51 - CONCLUSION: 1. There is osteopenia primary degenerative changes at both hips, left greater than right. 2. Prominent osteophyte along the inferior articulating surface of the proximal left femur. 3. Nonspecific edema in the gluteus and hamstring muscles. 4. No acute bony fracture. Javier Fishman MD Lower Extremity Ultrasound 06/29/16 0000 Signed Impressions: Service Date/Time: Wednesday, June 29, 2016 10:07 - CONCLUSION: Negative for deep venous thrombosis. Alfredo Sanders MD FACR Cervical Spine MRI 06/27/16 0000 Signed Impressions: Service Date/Time: Monday, June 27, 2016 11:09 - CONCLUSION: Mild degenerative changes otherwise unremarkable cervical spine. Anselmo Leavitt MD Thoracic Spine MRI 06/25/16 0000 Signed Impressions: Service Date/Time: June 19:36 - CONCLUSION: 1. No fracture or subluxation of the thoracic spine. 2. Mild and fairly diffuse degenerative changes as above. 3. Mild left foraminal encroachment at T8/T9 and T9/T10. 4. No significant spinal stenosis at any level. 5. Incidentally seen tiny right and small left pleural effusions, nonspecific. Jeevan Arreola MD Lumbar Spine MRI 06/25/16 0000 Signed Impressions: Service Date/Time: June 19:36 - CONCLUSION: 1. Multilevel lumbar degenerative changes as detailed above. 2. Mild spinal stenosis at L3/L4 without evidence of transiting nerve root impingement. 3. Mild to moderate spinal stenosis at L4/L5 and possibly with mild mass effect/impingement on the transiting left L5 nerve root within the subarticular recess. 4. Mild bilateral foraminal encroachment L3/L4 and L4/L5. Mild to moderate bilateral foraminal encroachment at L5/S1. 5. No fracture or subluxation of the lumbar spine. Jeevan Arreola MD Hip and Pelvis X-Ray 06/25/16 0000 Signed Impressions: Service Date/Time: June 20:27 - CONCLUSION: Moderate to severe left hip' right is with considerable osteophytosis and an apparent large inferior joint body. No fracture or subluxation. Jeevan Arreola MD Chest X-Ray 06/23/16 1402 Signed Impressions: Service Date/Time: Thursday, June 23, 2016 14:13 - CONCLUSION: Normal examination. Elías Moreno MD Objective Remarks GENERAL: Obese female patient, in NAD. Overall impression, patient appears much better today. SKIN: Warm and dry. Sacral wound documented. HEENT: Normocephalic. Atraumatic. Pupils equal and round. No scleral icterus. Mucous membranes pink and moist. NECK: Supple. Trachea midline. No JVD. CARDIOVASCULAR: Regular rate and rhythm. S1, S2 noted. No murmur appreciated. RESPIRATORY: No accessory muscle use. Clear to auscultation. Breath sounds equal bilaterally. GASTROINTESTINAL: Abdomen soft, non-tender, nondistended. Normoactive bowel sounds x4. MUSCULOSKELETAL: No obvious deformities. Extremities without clubbing, cyanosis , or edema. NEUROLOGICAL: Awake and alert. No obvious cranial nerve deficits. Motor grossly within normal limits. Normal speech. PSYCHIATRIC: Appropriate mood and affect; insight and judgment normal Procedures none A/P Problem List: (1) Total self-care deficit ICD Code: R41.89 Status: Acute (2) Sacral pressure ulcer ICD Code: L89.159 Status: Chronic (3) Subclinical hypothyroidism ICD Code: E03.9 Status: Acute (4) Radiculopathy of lumbar region ICD Code: M54.16 Status: Acute Assessment and Plan Mrs. Arreola is a 70-year-old female with a known history of hypertension, obesity , arthritis, status post gastric bypass who presented to the ED on 06/23/16 with complaints of generalized weakness for two weeks. Apparently patient had been discharged on 06/08/16 with home health care and sustained a fall at home with progressive weakness. Supposedly she is wheelchair bound at home and unable to transfer independently. Poor appetite secondary to nausea and vomiting: Encourage PO intake as tolerated. Replace IV with VAT team. Zofran IV PRN. Continue Reglan. Continue Marinol for appetite stimulant. Epigastric pain likely secondary to ulcer: Continue Protonix. Much improved today. Sacral pressure ulcer, resolved: Encourage repositioning patient every 2 hours. Specialty mattress continued. C. difficile diarrhea: Diarrhea is currently improved. Last BM 09/05. Last Tox PCR positive on 08/19. Has previously been treated with Flagyl, oral vancomycin. ID previously consulted on 08/20 with recommendations to discontinue Vanco and begin Dificid, completed course of Dificid. Continue Questran. Generalized weakness: Continue physical therapy. Will need nursing facility at discharge, case management following. Lumbar radiculopathy: Neurosurgery signed off, no surgical intervention recommended at this time. Control pain [place] PRN per pain scale. Anemia, GI bleed: Stool Hemoccult is positive on 08/30. Status post EGD, which showed esophageal ulcer. S/p transfusion 2 units on 09/02. Hb stable. Other chronic medical history includes osteoarthritis, CTD stage III are stable at this time. DVT prophylaxis: SCDs/TEDs. The exam, history, and the medical decision-making described in the above note were completed with the assistance of the mid-level provider. I reviewed and agree with the findings presented. I attest that I had a [id number] encounter with the patient on the same day, and personally performed and documented my assessment and findings in the medical record. Cont reglan IV scheduled. If no improvement, may need to consider gastric emptying scan to eval for gastroparesis. Problem Qualifiers (1) Sacral pressure ulcer: Qualified Code: L89.151 - Decubitus ulcer of sacral region, stage 1 Paty Kwan Sep 06, 2016 13:16 Noy Willard MD Sep 06, 2016 16:23
--- NOTE | 2016-09-06 14:29 | HHI.PR ---
Subjective Remarks persistent nausea Objective Vitals Vital Signs Date Time Temp Pulse Resp B/P Pulse Ox O2 Delivery O2 Flow Rate FiO2 09/06/16 12:00 96.1 92 19 128/72 99 09/06/16 08:40 97.9 114 18 127/74 93 09/06/16 05:04 98.1 76 18 124/79 98 09/06/16 00:06 99.0 81 16 123/87 97 09/05/16 23:00 81 09/05/16 20:33 99.5 80 18 120/69 99 09/05/16 16:00 97.2 100 18 148/83 92 I/O 09/05/16 09/05/16 09/05/16 09/06/16 09/06/16 09/06/16 07:00 15:00 23:00 07:00 15:00 23:00 # Voids 1 1 1 # Bowel Movements 0 Result Diagram: 09/04/16 0755 09/04/16 0755 Objective Remarks GENERAL: Well-nourished, well-developed obese CF patient. SKIN: Warm and dry. HEAD: Normocephalic. EYES: No scleral icterus. No injection or drainage. NECK: Supple, trachea midline. No JVD or lymphadenopathy. CARDIOVASCULAR: Regular rate and rhythm without murmurs, gallops, or rubs. RESPIRATORY: Breath sounds equal bilaterally. No accessory muscle use. GASTROINTESTINAL: Abdomen soft, non-tender, nondistended. BS nml. EXTREMITIES: No cyanosis, or edema. NEUROLOGICAL: Awake, alert, and oriented x 3. Non-focal. Procedures none A/P Problem List: (1) Total self-care deficit ICD Code: R41.89 Status: Acute (2) Sacral pressure ulcer ICD Code: L89.159 Status: Chronic (3) Subclinical hypothyroidism ICD Code: E03.9 Status: Acute (4) Radiculopathy of lumbar region ICD Code: M54.16 Status: Acute Assessment and Plan Mrs. Arreola is a 70-year-old female with a known history of hypertension, obesity , arthritis, status post gastric bypass who presented to the ED on 06/23/16 with complaints of generalized weakness for two weeks. Apparently patient had been discharged on 06/08/16 with home health care and sustained a fall at home with progressive weakness. Supposedly she is wheelchair bound at home and unable to transfer independently. Poor appetite secondary to nausea and vomiting: Encourage PO intake. Zofran when necessary. Continue Reglan. Continue Marinol. Epigastric pain likely secondary to ulcer: Continue Protonix. Sacral pressure ulcer: Wound care following, appreciate recommendations. Encourage repositioning patient every 2 hours. Specialty mattress. C. difficile diarrhea: Diarrhea is currently improved. Last Tox PCR positive on 08/19. Has previously been treated with Flagyl, oral vancomycin. ID previously consulted on 08/20 with recommendations to discontinue Vanco and begin Dificid, completed course of Dificid. Continue Questran. Generalized weakness: Continue physical therapy. Will need nursing facility at discharge, case management following. Lumbar radiculopathy: Neurosurgery signed off, no surgical intervention recommended at this time. Control pain [place] PRN per pain scale. Anemia, GI bleed: Stool Hemoccult is positive on 08/30. Status post EGD, which showed esophageal ulcer. S/p transfusion 2 units on 09/02. Hb stable. Other chronic medical history includes osteoarthritis, CTD stage III are stable at this time. DVT prophylaxis: SCDs/TEDs. Written by Paty Kwan, acting as scribe for Dr. Willard on 09/05/16 at 14: 10. This note was transcribed by scribe. I, Dr. Noy Willard personally performed the history, physical exam, and medical decision making; and confirmed the accuracy of the information in the transcribed note. Authenticated by Dr. Noy Willard on 09/05/16 at 22:21. Discharge Planning Needs nursing facily placement, CM assisting, insurance difficulties currently. Problem Qualifiers (1) Sacral pressure ulcer: Qualified Code: L89.151 - Decubitus ulcer of sacral region, stage 1 Noy Willard MD Sep 06, 2016 14:29
[2016-09-06 16:00] VITALS: BP 120/70; PULSE 97; RESP 19; TEMP 96.3; O2SAT 96
[2016-09-06 20:00] VITALS: BP 147/78; PULSE 53; RESP 16; TEMP 96.8; O2SAT 97
[2016-09-06] MEDS: CETIRIZINE HCL 10 MG TAB PO SCH (22:59)
[2016-09-06] MEDS: SERTRALINE HCL 100 MG TAB PO SCH (22:59)
[2016-09-06] MEDS: hydrOXYzine HCL 25 MG TAB PO PRN (22:59)
[2016-09-07] VITALS (8 sets, daily range): BP systolic 101–146; BP diastolic 55–100; PULSE 77–88; RESP 17–20; TEMP 96–97.7; O2SAT 94–100
[2016-09-07] MEDS: CHOLESTYRAMINE 4 GM PACKET PO SCH ×3 (05:46→21:27)
[2016-09-07 08:32] LABS: AUTOMATED NEUTROPHIL # 4.5 TH/MM3 (1.8-7.7); BASOPHIL # 0.1 TH/MM3 (0-0.2); BASOPHIL % 0.7 % (0.0-2.0); EOSINOPHIL # 0.6 TH/MM3 (0-0.4); EOSINOPHIL % 8.4 % (0.0-4.0); HEMATOCRIT 28.3 % (35.0-46.0); LYMPH % 25.2 % (9.0-44.0); LYMPHOCYTE # 1.9 TH/MM3 (1.0-4.8); MEAN CELL VOLUME 79.1 FL (80.0-100.0); MEAN CORPUSCULAR HEMOGLOBIN 25.7 PG (27.0-34.0); MEAN CORPUSCULAR HGB CONC 32.5 % (32.0-36.0); MONO % 7.1 % (0.0-8.0); NEUT % 58.6 % (16.0-70.0); PLATELET COUNT 242 TH/MM3 (150-450); RED BLOOD COUNT 3.58 MIL/MM3 (4.00-5.30); RED CELL DISTRIBUTION WIDTH 19.6 % (11.6-17.2); WHITE BLOOD COUNT 7.7 TH/MM3 (4.0-11.0)
[2016-09-07 08:45] LABS: HEMO FLAGS AUTO DIFF
[2016-09-07 08:59] LABS: BICARBONATE 24.9 MEQ/L (21.0-32.0); POTASSIUM 3.6 MEQ/L (3.5-5.1)
[2016-09-07 09:24] LABS: TARGET CELLS 1+ (NORMAL)
[2016-09-07 09:25] LABS: SCAN/DIFF AUTO DIFF CONFIRMED
[2016-09-07] MEDS: METOCLOPRAMIDE HCL 10 MG/2 ML VIAL IV PUSH SCH ×3 (09:54→16:51)
[2016-09-07] MEDS: LACTOBACILLUS ACIDOPHILUS TAB PO SCH ×2 (09:55→21:27)
[2016-09-07] MEDS: PANTOPRAZOLE SOD 40 MG DELAYED RELEASE TAB PO SCH (09:55)
[2016-09-07] MEDS: LISINOPRIL 10 MG TAB PO SCH (09:55)
[2016-09-07] MEDS: FUROSEMIDE 20 MG TAB PO SCH (09:55)
[2016-09-07] MEDS: ASPIRIN EC 81 MG TABEC PO SCH (09:55)
[2016-09-07] MEDS: SODIUM CHLORIDE 0.9% FLUSH 5 ML FLUSH FLUSH SCH ×2 (09:56→21:00)
[2016-09-07] MEDS: hydrOXYzine HCL 25 MG TAB PO PRN ×2 (10:07→16:58)
[2016-09-07] MEDS: MUPIROCIN 2% CREAM 15 GM TOPICAL SCH ×2 (10:41→21:28)
[2016-09-07] MEDS: CALAMINE/PRAMOXINE LOTION 180 ML BTL TOPICAL SCH ×2 (10:42→21:28)
[2016-09-07] MEDS: DRONABINOL 5 MG CAP PO SCH ×2 (12:09→16:51)
--- NOTE | 2016-09-07 16:21 | HHI.PR ---
Subjective Remarks Follow up epigastric pain and nausea. Patient states she is still nauseated and has vomited once today. She tried to eat a meal but did not tolerate it. Denies any pain, no fevers noted. Objective Vitals Vital Signs Date Time Temp Pulse Resp B/P Pulse Ox O2 Delivery O2 Flow Rate FiO2 09/07/16 15:08 97.0 79 18 101/55 99 09/07/16 11:46 96.6 80 18 114/59 95 09/07/16 07:30 96.0 80 17 133/62 100 09/07/16 04:00 97.1 88 20 146/100 98 09/07/16 02:29 84 09/07/16 00:00 97.7 83 18 138/77 97 09/06/16 20:00 96.8 53 16 147/78 97 I/O 09/06/16 09/06/16 09/06/16 09/07/16 09/07/16 09/07/16 07:00 15:00 23:00 07:00 15:00 23:00 # Voids 1 1 3 1 # Bowel Movements 0 1 Result Diagram: 09/07/16 0744 09/07/16743 Objective Remarks GENERAL: Obese female patient, in NAD. Overall impression, patient appears much better today. SKIN: Warm and dry. Sacral wound documented. HEENT: Normocephalic. Atraumatic. Pupils equal and round. No scleral icterus. Mucous membranes pink and moist. NECK: Supple. Trachea midline. No JVD. CARDIOVASCULAR: Regular rate and rhythm. S1, S2 noted. No murmur appreciated. RESPIRATORY: No accessory muscle use. Clear to auscultation. Breath sounds equal bilaterally. GASTROINTESTINAL: Abdomen soft, non-tender, nondistended. Normoactive bowel sounds x4. MUSCULOSKELETAL: No obvious deformities. Extremities without clubbing, cyanosis , or edema. NEUROLOGICAL: Awake and alert. No obvious cranial nerve deficits. Motor grossly within normal limits. Normal speech. PSYCHIATRIC: Appropriate mood and affect; insight and judgment normal Procedures none Medications and IVs Current Medications Medications (Trade) Dose Ordered Sig/Alhaji Route Start Time Stop Time Status Last Admin (NS Flush) 2 ml UNSCH PRN FLUSH 06/23/16 20:00 07/25/16 18:44 (NS Flush) 2 ml BID FLUSH 06/23/16 21:00 09/07/16 09:56 (Lovenox Inj) 40 mg Q24H SQ 06/24/16 09:00 Hold 08/31/16 09:20 (Narcan Inj) 0.4 mg UNSCH PRN IV 06/23/16 20:00 (Norvasc) 10 mg DAILY PO 06/24/16 10:00 09/07/16 09:55 (Ecotrin Ec) 81 mg DAILY PO 06/25/16 09:00 09/07/16 09:55 (Lasix) 20 mg DAILY PO 06/25/16 09:00 09/07/16 09:55 (Zoloft) 200 mg HS PO 06/24/16 21:00 09/06/16 22:59 (Tylenol) 650 mg Q6H PRN PO 06/26/16 16:15 ([place] 5-325 Mg) 1 tab Q4H PRN PO 06/26/16 16:15 09/05/16 20:41 (Caladryl Lotion) 1 applic Q12HR TOPICAL 06/27/16 09:00 09/07/16 10:42 (ZyrTEC) 10 mg HS PO 06/29/16 21:00 09/06/16 22:59 (Lactinex) 1 tab Q12HR PO 07/04/16 21:00 09/07/16 09:55 (Zofran Inj) 4 mg Q6H PRN IV PUSH 07/07/16 13:45 09/04/16 18:01 (Atarax) 50 mg Q6H PRN PO 07/08/16 18:15 09/07/16 10:07 (Pepcid) 10 mg BID PO 07/09/16 21:00 Hold 07/23/16 08:56 (Pill Splitter) 1 ea UNSCH PRN OTHER 07/09/16 15:45 07/11/16 08:23 (Bactroban 2% Cream) 1 applic Q12HR TOPICAL 07/13/16 13:30 09/07/16 10:41 (Reglan Inj) 5 mg TIDAC IV PUSH 08/07/16 17:00 09/07/16 12:10 (Leti-Colace) 2 tab BID PO 08/09/16 12:15 Hold 08/19/16 09:52 (Prinivil) 10 mg DAILY PO 08/14/16 09:00 09/07/16 09:55 (Marinol) 5 mg BID@11,16 PO 08/15/16 16:00 09/07/16 12:09 (Questran 4 Gm Pkt) 4 gm Q8HR PO 08/23/16 14:00 09/04/16 20:52 (Protonix) 40 mg DAILY PO 09/01/16 12:00 09/07/16 09:55 Urinary Catheter: No Vascular Central Line Catheter: No A/P Problem List: (1) Total self-care deficit ICD Code: R41.89 Status: Acute (2) Sacral pressure ulcer ICD Code: L89.159 Status: Chronic (3) Subclinical hypothyroidism ICD Code: E03.9 Status: Acute (4) Radiculopathy of lumbar region ICD Code: M54.16 Status: Acute Assessment and Plan Mrs. Arreola is a 70-year-old female with a known history of hypertension, obesity , arthritis, status post gastric bypass who presented to the ED on 06/23/16 with complaints of generalized weakness for two weeks. Apparently patient had been discharged on 06/08/16 with home health care and sustained a fall at home with progressive weakness. Supposedly she is wheelchair bound at home and unable to transfer independently. Poor appetite secondary to nausea and vomiting: Encourage PO intake as tolerated. Zofran IV PRN. Continue Reglan. Continue Marinol for appetite stimulant. Reconsult GI for questionable gastroparesis. Epigastric pain likely secondary to ulcer: Continue Protonix. Much improved today. Sacral pressure ulcer, resolved: Encourage repositioning patient every 2 hours. Specialty mattress continued. C. difficile diarrhea: Diarrhea is currently improved. Last BM 09/05. Last Tox PCR positive on 08/19. Has previously been treated with Flagyl, oral vancomycin. ID previously consulted on 08/20 with recommendations to discontinue Vanco and begin Dificid, completed course of Dificid. Continue Questran. Generalized weakness: Continue physical therapy. Will need nursing facility at discharge, case management following. Lumbar radiculopathy: Neurosurgery signed off, no surgical intervention recommended at this time. Control pain [place] PRN per pain scale. Anemia, GI bleed: Stool Hemoccult is positive on 08/30. Status post EGD, which showed esophageal ulcer. Hb stable. Other chronic medical history includes osteoarthritis, CTD stage III are stable at this time. DVT prophylaxis: SCDs/TEDs. Written by SHAWN Aguilar acting as scribe for Dr. Willard on 09/07/16 at 15: 42. Discharge Planning Await GI recommendation Attending Statement This note was transcribed by scribe. I, Dr. Noy Willard personally performed the history, physical exam, and medical decision making; and confirmed the accuracy of the information in the transcribed note. Authenticated by Dr. Noy Willard on 09/08/16 at 18:34. Problem Qualifiers (1) Sacral pressure ulcer: Qualified Code: L89.151 - Decubitus ulcer of sacral region, stage 1 Alayna Robles Sep 07, 2016 16:21 Noy Willard MD Sep 08, 2016 18:35
[2016-09-07] MEDS: ACETAMINOPHEN/HYDROcodone 325 MG/5 MG TAB PO PRN ×2 (16:58→21:29)
[2016-09-07] MEDS: CETIRIZINE HCL 10 MG TAB PO SCH (21:27)
[2016-09-07] MEDS: SERTRALINE HCL 100 MG TAB PO SCH (21:27)
[2016-09-08] VITALS (8 sets, daily range): BP systolic 114–152; BP diastolic 56–77; PULSE 69–84; RESP 17–21; TEMP 96.2–97.7; O2SAT 94–99
[2016-09-08] MEDS: CHOLESTYRAMINE 4 GM PACKET PO SCH (06:00)
[2016-09-08] MEDS: ACETAMINOPHEN/HYDROcodone 325 MG/5 MG TAB PO PRN ×2 (06:35→22:38)
[2016-09-08] MEDS: CALAMINE/PRAMOXINE LOTION 180 ML BTL TOPICAL SCH ×2 (09:00→21:00)
--- NOTE | 2016-09-08 10:34 | HHI.GIFU ---
Subjective Remarks Reconsulted for persistent n/v. Pt reports that she has had persistent n/v and is unable to eat because of this. She did not tolerate hot chocolate this am. She has associated n/v. She reports her diarrhea has improved. She has not had a bowel movement today. (SutherlandChastity Kinga SHAWN) Objective Vitals I&O Vital Signs Date Time Temp Pulse Resp B/P Pulse Ox O2 Delivery O2 Flow Rate FiO2 09/08/16 07:25 96.8 82 18 114/71 97 09/08/16 06:05 97.7 84 20 120/74 99 09/08/16 01:14 96.2 69 21 118/69 96 09/07/16 21:04 97.0 77 19 115/65 94 09/07/16 20:00 80 09/07/16 15:08 97.0 79 18 101/55 99 09/07/16 11:46 96.6 80 18 114/59 95 I/O 09/07/16 09/07/16 09/07/16 09/08/16 09/08/16 09/08/16 07:00 15:00 23:00 07:00 15:00 23:00 # Voids 1 1 1 # Bowel Movements 1 0 Imaging Last Impressions Hip MRI 07/05/16 0000 Signed Impressions: Service Date/Time: Tuesday, July 05, 2016 10:51 - CONCLUSION: 1. There is osteopenia primary degenerative changes at both hips, left greater than right. 2. Prominent osteophyte along the inferior articulating surface of the proximal left femur. 3. Nonspecific edema in the gluteus and hamstring muscles. 4. No acute bony fracture. Javier Fishman MD Lower Extremity Ultrasound 06/29/16 0000 Signed Impressions: Service Date/Time: Wednesday, June 29, 2016 10:07 - CONCLUSION: Negative for deep venous thrombosis. Alfredo Sanders MD FACR Cervical Spine MRI 06/27/16 0000 Signed Impressions: Service Date/Time: Monday, June 27, 2016 11:09 - CONCLUSION: Mild degenerative changes otherwise unremarkable cervical spine. Anselmo Leavitt MD Thoracic Spine MRI 06/25/16 0000 Signed Impressions: Service Date/Time: June 19:36 - CONCLUSION: 1. No fracture or subluxation of the thoracic spine. 2. Mild and fairly diffuse degenerative changes as above. 3. Mild left foraminal encroachment at T8/T9 and T9/T10. 4. No significant spinal stenosis at any level. 5. Incidentally seen tiny right and small left pleural effusions, nonspecific. Jeevan Arreola MD Lumbar Spine MRI 06/25/16 0000 Signed Impressions: Service Date/Time: June 19:36 - CONCLUSION: 1. Multilevel lumbar degenerative changes as detailed above. 2. Mild spinal stenosis at L3/L4 without evidence of transiting nerve root impingement. 3. Mild to moderate spinal stenosis at L4/L5 and possibly with mild mass effect/impingement on the transiting left L5 nerve root within the subarticular recess. 4. Mild bilateral foraminal encroachment L3/L4 and L4/L5. Mild to moderate bilateral foraminal encroachment at L5/S1. 5. No fracture or subluxation of the lumbar spine. Jeevan Arreola MD Hip and Pelvis X-Ray 06/25/16 0000 Signed Impressions: Service Date/Time: June 20:27 - CONCLUSION: Moderate to severe left hip' right is with considerable osteophytosis and an apparent large inferior joint body. No fracture or subluxation. Jeevan Arreola MD Chest X-Ray 06/23/16 1402 Signed Impressions: Service Date/Time: Thursday, June 23, 2016 14:13 - CONCLUSION: Normal examination. Elías Moreno MD Physical Exam HEENT: Normocephalic; atraumatic; no jaundice. CHEST: CTA, diminished CARDIAC: RRR ABDOMEN: Soft, nondistended, mild epigastric discomfort/tenderness no hepatosplenomegaly; bowel sounds are present in all four quadrants. EXTREMITIES: Generalized edema. SKIN: fine spotted rash- healing to right ankle NEGATIVE TURNER APPRENTICE: Lethargic and oriented times three. (Chastity Sutherland) Assessment and Plan Plan ASSESSMENT: - Reconsult for persistent N/V, ? gastroparesis. Of note, patient is s/p gastric bypass 5 years ago. She was evaluated with EGD/Colonoscopy (09/01/16)--- > esophageal ulcer Bx done, and anatomy C/W gastric bypass, colonoscopy showed diverticulosis, no sign of colitis. Pathology acute esophagitis, no fungal organisms are present. PPI, Reglan - Decreased appetite, Marinol. States she cannot eat because of nausea/vomiting. - Esophageal ulcer. PPI daily - Anemia, hemoccult positive stool. S/P 2 units PRBC, HH has remained stable since. 9.2/28.3. EGD/Colonoscopy as above. - CDiff colitis, s/p oral vanco, dificid. Colonoscopy without any signs of colitis. States diarrhea improved. No bm yet today. PLAN: - Clear liquids - Change protonix to BID dosing - Add Carafate 1 gram po TID-AC/HS - D/C Cholestyramine - Upper GI series/SBFT - CMP, Lipase - Supportive care - Further recommendations to follow based on results of above - Pt seen and examined by Dr. Walker and myself and this note is written on her behalf (Chastity Sutherland) Physician Comments seen, examined on my examination she is more tender in right upper and right lower quadrant had her gb removed 11 years ago we will cancel ugi sbft series and order ct abdomen/pelvis elevated lfts we will repeat for now, if still elevated , further w-up will be ordered (Sun Walker MD) Chastity Sutherland Sep 08, 2016 10:34 Sun Walker MD Sep 08, 2016 18:19
[2016-09-08] MEDS: SUCRALFATE 1 GM/10 ML CUP PO SCH ×3 (11:00→22:31)
[2016-09-08] MEDS: METOCLOPRAMIDE HCL 10 MG/2 ML VIAL IV PUSH SCH ×3 (11:00→17:48)
[2016-09-08] MEDS: FUROSEMIDE 20 MG TAB PO SCH (11:01)
[2016-09-08] MEDS: DRONABINOL 5 MG CAP PO SCH ×2 (11:02→16:00)
[2016-09-08] MEDS: LACTOBACILLUS ACIDOPHILUS TAB PO SCH ×2 (11:02→22:31)
[2016-09-08] MEDS: MUPIROCIN 2% CREAM 15 GM TOPICAL SCH ×2 (11:03→22:37)
[2016-09-08] MEDS: SODIUM CHLORIDE 0.9% FLUSH 5 ML FLUSH FLUSH SCH ×2 (11:04→21:00)
[2016-09-08] MEDS: ASPIRIN EC 81 MG TABEC PO SCH (11:11)
[2016-09-08] MEDS: LISINOPRIL 10 MG TAB PO SCH (11:12)
[2016-09-08] MEDS ORDERED: MAGNESIUM CITRATE SOLN 300 ML BTL PO ONE ×2 (12:00→18:00)
[2016-09-08 13:17] LABS: ALKALINE PHOSPHATASE 158 U/L (45-117); ALT (GPT) 18 U/L (10-53); ANION GAP 10 MEQ/L (5-15); AST (GOT) 50 U/L (15-37); BLOOD UREA NITROGEN 17 MG/DL (7-18); CHLORIDE 110 MEQ/L (98-107); GLOMERULAR FILTRATION RATE 48 ML/MIN (>89); POTASSIUM 3.4 MEQ/L (3.5-5.1); SODIUM (NA) 145 MEQ/L (136-145); TOTAL BILIRUBIN ADULT 0.5 MG/DL (0.2-1.0)
--- NOTE | 2016-09-08 14:24 | HHI.PR ---
Subjective Remarks Follow up for epigastric pain, nausea/vomiting. The patient reports continued nausea and one episode of vomiting today. Still with some epigastric discomfort. No fevers/chills. Denies any other medical complaints at this time. Objective Vitals Vital Signs Date Time Temp Pulse Resp B/P Pulse Ox O2 Delivery O2 Flow Rate FiO2 09/08/16 11:15 97.3 76 18 126/62 96 09/08/16 07:25 96.8 82 18 114/71 97 09/08/16 06:05 97.7 84 20 120/74 99 09/08/16 01:14 96.2 69 21 118/69 96 09/07/16 21:04 97.0 77 19 115/65 94 09/07/16 20:00 80 09/07/16 15:08 97.0 79 18 101/55 99 I/O 09/07/16 09/07/16 09/07/16 09/08/16 09/08/16 09/08/16 07:00 15:00 23:00 07:00 15:00 23:00 # Voids 1 1 1 # Bowel Movements 1 0 Result Diagram: 09/07/16 0744 09/08/16 1206 Imaging Last Impressions Hip MRI 07/05/16 0000 Signed Impressions: Service Date/Time: Tuesday, July 05, 2016 10:51 - CONCLUSION: 1. There is osteopenia primary degenerative changes at both hips, left greater than right. 2. Prominent osteophyte along the inferior articulating surface of the proximal left femur. 3. Nonspecific edema in the gluteus and hamstring muscles. 4. No acute bony fracture. Javier Fishman MD Lower Extremity Ultrasound 06/29/16 0000 Signed Impressions: Service Date/Time: Wednesday, June 29, 2016 10:07 - CONCLUSION: Negative for deep venous thrombosis. Alfredo Sanders MD FACR Cervical Spine MRI 06/27/16 0000 Signed Impressions: Service Date/Time: Monday, June 27, 2016 11:09 - CONCLUSION: Mild degenerative changes otherwise unremarkable cervical spine. Anselmo Leavitt MD Thoracic Spine MRI 06/25/16 0000 Signed Impressions: Service Date/Time: June 19:36 - CONCLUSION: 1. No fracture or subluxation of the thoracic spine. 2. Mild and fairly diffuse degenerative changes as above. 3. Mild left foraminal encroachment at T8/T9 and T9/T10. 4. No significant spinal stenosis at any level. 5. Incidentally seen tiny right and small left pleural effusions, nonspecific. Jeevan Arreola MD Lumbar Spine MRI 06/25/16 0000 Signed Impressions: Service Date/Time: June 19:36 - CONCLUSION: 1. Multilevel lumbar degenerative changes as detailed above. 2. Mild spinal stenosis at L3/L4 without evidence of transiting nerve root impingement. 3. Mild to moderate spinal stenosis at L4/L5 and possibly with mild mass effect/impingement on the transiting left L5 nerve root within the subarticular recess. 4. Mild bilateral foraminal encroachment L3/L4 and L4/L5. Mild to moderate bilateral foraminal encroachment at L5/S1. 5. No fracture or subluxation of the lumbar spine. Jeevan Arreola MD Hip and Pelvis X-Ray 06/25/16 0000 Signed Impressions: Service Date/Time: June 20:27 - CONCLUSION: Moderate to severe left hip' right is with considerable osteophytosis and an apparent large inferior joint body. No fracture or subluxation. Jeevan Arreola MD Chest X-Ray 06/23/16 1402 Signed Impressions: Service Date/Time: Thursday, June 23, 2016 14:13 - CONCLUSION: Normal examination. Elías Moreno MD Objective Remarks GENERAL: Well-nourished, well-developed pleasant morbidly obese female patient in [facility]. SKIN: Warm and dry. Sacral wound, not visualized today. HEAD: Normocephalic. Atraumatic. NECK: Supple. Trachea midline. CARDIOVASCULAR: Regular rate and rhythm. S1, S2 noted. No murmur appreciated. RESPIRATORY: No accessory muscle use. Clear to auscultation. Breath sounds equal bilaterally. GASTROINTESTINAL: Abdomen soft, non-tender, nondistended. Normoactive bowel sounds x4. MUSCULOSKELETAL: No obvious deformities. Bilateral lower extremities with chronic nonpitting edema. NEUROLOGICAL: Awake and alert. No obvious cranial nerve deficits. Motor grossly within normal limits. Normal speech. PSYCHIATRIC: Appropriate mood and affect; insight and judgment normal. Procedures none Medications and IVs Current Medications Medications (Trade) Dose Ordered Sig/Alhaji Route Start Time Stop Time Status Last Admin (NS Flush) 2 ml UNSCH PRN FLUSH 06/23/16 20:00 07/25/16 18:44 (NS Flush) 2 ml BID FLUSH 06/23/16 21:00 09/08/16 11:04 (Lovenox Inj) 40 mg Q24H SQ 06/24/16 09:00 Hold 08/31/16 09:20 (Narcan Inj) 0.4 mg UNSCH PRN IV 06/23/16 20:00 (Norvasc) 10 mg DAILY PO 06/24/16 10:00 09/08/16 11:02 (Ecotrin Ec) 81 mg DAILY PO 06/25/16 09:00 09/08/16 11:11 (Lasix) 20 mg DAILY PO 06/25/16 09:00 09/08/16 11:01 (Zoloft) 200 mg HS PO 06/24/16 21:00 09/07/16 21:27 (Tylenol) 650 mg Q6H PRN PO 06/26/16 16:15 (Closplint 5-325 Mg) 1 tab Q4H PRN PO 06/26/16 16:15 09/08/16 06:35 (Caladryl Lotion) 1 applic Q12HR TOPICAL 06/27/16 09:00 09/07/16 21:28 (ZyrTEC) 10 mg HS PO 06/29/16 21:00 09/07/16 21:27 (Lactinex) 1 tab Q12HR PO 07/04/16 21:00 09/08/16 11:02 (Zofran Inj) 4 mg Q6H PRN IV PUSH 07/07/16 13:45 09/04/16 18:01 (Atarax) 50 mg Q6H PRN PO 07/08/16 18:15 09/07/16 16:58 (Pill Splitter) 1 ea UNSCH PRN OTHER 07/09/16 15:45 07/11/16 08:23 (Bactroban 2% Cream) 1 applic Q12HR TOPICAL 07/13/16 13:30 09/08/16 11:03 (Reglan Inj) 5 mg TIDAC IV PUSH 08/07/16 17:00 09/08/16 11:00 (Leti-Colace) 2 tab BID PO 08/09/16 12:15 Hold 08/19/16 09:52 (Prinivil) 10 mg DAILY PO 08/14/16 09:00 09/08/16 11:12 (Marinol) 5 mg BID@11,16 PO 08/15/16 16:00 09/08/16 11:02 (Protonix) 40 mg BID PO 09/08/16 21:00 (Carafate Liq) 1 gm ACHS PO 09/08/16 11:00 (Citroma Liq) 300 ml ONCE ONCE PO 09/08/16 18:00 09/08/16 18:01 (Dulcolax Ec) 10 mg DAILY@18 PO 09/08/16 18:00 09/08/16 21:01 Urinary Catheter: No A/P Problem List: (1) Total self-care deficit ICD Code: R41.89 Status: Acute (2) Sacral pressure ulcer ICD Code: L89.159 Status: Chronic (3) Subclinical hypothyroidism ICD Code: E03.9 Status: Acute (4) Radiculopathy of lumbar region ICD Code: M54.16 Status: Acute Assessment and Plan Mrs. Arreola is a 70-year-old female with a known history of hypertension, obesity , arthritis, status post gastric bypass who presented to the ED on 06/23/16 with complaints of generalized weakness for two weeks. Apparently patient had been discharged on 06/08/16 with home health care and sustained a fall at home with progressive weakness. Supposedly she is wheelchair bound at home and unable to transfer independently. Poor appetite secondary to nausea and vomiting: Encourage PO intake as tolerated. Zofran IV PRN. Continue Reglan. Continue Marinol for appetite stimulant. Reconsult GI for questionable gastroparesis. Ordered Upper GI series with SBFT. Start on Carafate tiadac. Patient with no BM today, give Mag Citrate x1. Epigastric pain likely secondary to ulcer: Continue Protonix. Reported pain yesterday, GI on board as above, added Carafate. Sacral pressure ulcer, resolved: Encourage repositioning patient every 2 hours. Specialty mattress continued. C. difficile diarrhea: Diarrhea is currently improved. Last BM 09/05. Last Tox PCR positive on 08/19. Has previously been treated with Flagyl, oral vancomycin. ID previously consulted on 08/20 with recommendations to discontinue Vanco and begin Dificid, completed course of Dificid. Continue Questran. Generalized weakness: Continue physical therapy. Will need nursing facility at discharge, case management following. Lumbar radiculopathy: Neurosurgery signed off, no surgical intervention recommended at this time. Control pain Closplint PRN per pain scale. Anemia, GI bleed: Stool Hemoccult is positive on 08/30. Status post EGD, which showed esophageal ulcer. Hb stable. Other chronic medical history includes osteoarthritis, CTD stage III are stable at this time. DVT prophylaxis: SCDs/TEDs. Written by Pastora Dunham, acting as scribe for Dr. Willard on 09/08/16 at 14: 16. Discharge Planning Patient is pending for LTC placement. Insurance difficulties. Case management assisting. Attending Statement This note was transcribed by scribe Pastora Dunham. I, Dr. Noy Willard personally performed the history, physical exam, and medical decision making; and confirmed the accuracy of the information in the transcribed note. Problem Qualifiers (1) Sacral pressure ulcer: Qualified Code: L89.151 - Decubitus ulcer of sacral region, stage 1 Pastora Dunham PA-C Sep 08, 2016 14:24 Noy Willard MD Sep 08, 2016 19:03
[2016-09-08] MEDS: BISACODYL EC 5 MG TABEC PO SCH ×2 (17:48→22:33)
[2016-09-08] MEDS ORDERED: DIATRIZOATE MEGLUM/DIATRIZOATE SOD 9 ML CUP PO ONE (18:24)
--- NOTE | 2016-09-08 22:19 | RADRPT ---
EXAM DATE/TIME: 09/08/2016 21:55 [facility] COMPARISON: No previous studies available for comparison. INDICATIONS : Abdomen pain. ORAL CONTRAST: Prescribed oral contrast ingested. RADIATION DOSE: 16.46 CTDIvol (mGy) MEDICAL HISTORY : Cardiovascular disease. Hypertension. C-Diff SURGICAL HISTORY : Cholecystectomy. ENCOUNTER: Initial ACUITY: 1 day PAIN SCALE: 6/10 LOCATION: Bilateral abdomen TECHNIQUE: Volumetric scanning of the abdomen and pelvis was performed. Using automated exposure control and ad justment of the mA and/or kV according to patient size, radiation dose was kept as low as reasonably achievable to obtain optimal diagnostic quality images. FINDINGS: There is a small left-sided pleural effusion with. Minimal basilar atelectasis. Healing right rib fra ctures noted. Trace pericardial fluid. No acute findings in the liver, spleen, adrenals, kidneys or pancreas. Left kidney is atrophic. Previ ous cholecystectomy. There also appears to be previous gastric bypass surgery with a loop also presen t around the stomach more distally. There is no bowel obstruction. No free air or free fluid. There is colonic diverticulosis without div erticulitis. CONCLUSION: 1. No acute findings within the abdomen and pelvis. Colonic diverticulosis without diverticulitis. Pr evious gastric bypass surgery. 2. Small left-sided pleural effusion with mild basilar atelectasis. 3. Atrophic left kidney. Dillon Romero MD on September 08, 2016 at 22:12 Board Certified Radiologist. This report was verified electronically.
[2016-09-08] MEDS: SERTRALINE HCL 100 MG TAB PO SCH (22:34)
[2016-09-08] MEDS: CETIRIZINE HCL 10 MG TAB PO SCH (22:35)
[2016-09-08] MEDS: PANTOPRAZOLE SOD 40 MG DELAYED RELEASE TAB PO SCH (22:35)
[2016-09-08] MEDS: hydrOXYzine HCL 25 MG TAB PO PRN (22:36)
[2016-09-09] VITALS (7 sets, daily range): BP systolic 104–131; BP diastolic 50–71; PULSE 77–88; RESP 18–20; TEMP 96.1–97.9; O2SAT 95–97
[2016-09-09] MEDS: SUCRALFATE 1 GM/10 ML CUP PO SCH ×4 (07:14→23:19)
[2016-09-09] MEDS: ONDANSETRON HCL 4 MG/2 ML VIAL IV PUSH PRN ×3 (07:19→23:40)
[2016-09-09] MEDS: METOCLOPRAMIDE HCL 10 MG/2 ML VIAL IV PUSH SCH ×3 (08:00→17:00)
[2016-09-09] MEDS: CALAMINE/PRAMOXINE LOTION 180 ML BTL TOPICAL SCH ×2 (09:00→21:00)
[2016-09-09] MEDS: LISINOPRIL 10 MG TAB PO SCH (09:00)
[2016-09-09] MEDS: SODIUM CHLORIDE 0.9% FLUSH 5 ML FLUSH FLUSH SCH ×2 (09:00→21:00)
[2016-09-09] MEDS: FUROSEMIDE 20 MG TAB PO SCH (09:00)
[2016-09-09] MEDS: LACTOBACILLUS ACIDOPHILUS TAB PO SCH ×2 (10:19→23:20)
[2016-09-09] MEDS: ASPIRIN EC 81 MG TABEC PO SCH (10:22)
[2016-09-09] MEDS: PANTOPRAZOLE SOD 40 MG DELAYED RELEASE TAB PO SCH ×2 (10:23→23:20)
[2016-09-09] MEDS: MUPIROCIN 2% CREAM 15 GM TOPICAL SCH ×2 (10:25→23:32)
[2016-09-09] MEDS: DRONABINOL 5 MG CAP PO SCH ×2 (11:00→16:00)
[2016-09-09] MEDS: hydrOXYzine HCL 25 MG TAB PO PRN (16:37)
[2016-09-09] MEDS: ACETAMINOPHEN/HYDROcodone 325 MG/5 MG TAB PO PRN ×2 (16:38→23:29)
--- NOTE | 2016-09-09 20:23 | HHI.PR ---
Subjective Remarks 5 loose stools today. nausea and vomiting, continued poor PO intake. abd CT reviewed, d/w Dr. Walker. D/w RN at bedside. Objective Vitals Vital Signs Date Time Temp Pulse Resp B/P Pulse Ox O2 Delivery O2 Flow Rate FiO2 09/09/16 16:35 96.8 82 20 122/68 96 09/09/16 11:35 96.5 88 20 111/69 96 09/09/16 07:40 96.7 82 19 104/71 96 09/09/16 04:46 97.9 80 19 131/68 95 09/09/16 00:10 96.1 80 18 108/50 97 09/08/16 23:50 18 09/08/16 21:32 96.9 79 18 121/62 98 I/O 09/08/16 09/08/16 09/08/16 09/09/16 09/09/16 09/09/16 07:00 15:00 23:00 07:00 15:00 23:00 Intake Total 240 ml Balance 240 ml Intake Oral 240 ml # Voids 1 4 1 2 1 # Bowel Movements 0 4 2 Result Diagram: 09/07/16 0744 09/08/16 1206 Objective Remarks GENERAL: Well-nourished, well-developed obese CF patient. SKIN: Warm and dry. HEAD: Normocephalic. EYES: No scleral icterus. No injection or drainage. NECK: Supple, trachea midline. No JVD or lymphadenopathy. CARDIOVASCULAR: Regular rate and rhythm without murmurs, gallops, or rubs. RESPIRATORY: Breath sounds equal bilaterally. No accessory muscle use. GASTROINTESTINAL: Abdomen soft, non-tender, nondistended. BS nml. EXTREMITIES: No cyanosis, or edema. NEUROLOGICAL: Awake, alert, and oriented x 3. Non-focal. Procedures none A/P Problem List: (1) Total self-care deficit ICD Code: R41.89 Status: Acute (2) Sacral pressure ulcer ICD Code: L89.159 Status: Chronic (3) Subclinical hypothyroidism ICD Code: E03.9 Status: Acute (4) Radiculopathy of lumbar region ICD Code: M54.16 Status: Acute Assessment and Plan Mrs. Arreola is a 70-year-old female with a known history of hypertension, obesity , arthritis, status post gastric bypass who presented to the ED on 06/23/16 with complaints of generalized weakness for two weeks. Apparently patient had been discharged on 06/08/16 with home health care and sustained a fall at home with progressive weakness. Supposedly she is wheelchair bound at home and unable to transfer independently. Poor appetite secondary to nausea and vomiting: Encourage PO intake as tolerated. Replace IV with VAT team. Zofran IV PRN. Continue Reglan. Continue Marinol for appetite stimulant. Epigastric pain likely secondary to ulcer: Continue Protonix. Much improved today. Sacral pressure ulcer, resolved: Encourage repositioning patient every 2 hours. Specialty mattress continued. C. difficile diarrhea: Diarrhea is currently improved. Last BM 09/05. Last Tox PCR positive on 08/19. Has previously been treated with Flagyl, oral vancomycin. ID previously consulted on 08/20 with recommendations to discontinue Vanco and begin Dificid, completed course of Dificid. Continue Questran. Generalized weakness: Continue physical therapy. Will need nursing facility at discharge, case management following. Lumbar radiculopathy: Neurosurgery signed off, no surgical intervention recommended at this time. Control pain [place] PRN per pain scale. Anemia, GI bleed: Stool Hemoccult is positive on 08/30. Status post EGD, which showed esophageal ulcer. S/p transfusion 2 units on 09/02. Hb stable. Other chronic medical history includes osteoarthritis, CTD stage III are stable at this time. DVT prophylaxis: SCDs/TEDs. The exam, history, and the medical decision-making described in the above note were completed with the assistance of the mid-level provider. I reviewed and agree with the findings presented. I attest that I had a [id number] encounter with the patient on the same day, and personally performed and documented my assessment and findings in the medical record. Cont reglan IV scheduled. If no improvement, may need to consider gastric emptying scan to eval for gastroparesis. Discharge Planning Needs nursing facily placement, CM assisting, insurance difficulties currently. Problem Qualifiers (1) Sacral pressure ulcer: Qualified Code: L89.151 - Decubitus ulcer of sacral region, stage 1 Noy Willard MD Sep 09, 2016 20:23
[2016-09-09] MEDS: CETIRIZINE HCL 10 MG TAB PO SCH (23:19)
[2016-09-09] MEDS: SERTRALINE HCL 100 MG TAB PO SCH (23:20)
[2016-09-10] VITALS: BP 115/53; PULSE 79; RESP 18; TEMP 97.6; O2SAT 97
[2016-09-10 04:00] VITALS: BP 111/64; PULSE 83; RESP 20; TEMP 98.3; O2SAT 97
[2016-09-10] MEDS: SUCRALFATE 1 GM/10 ML CUP PO SCH ×5 (07:00→20:48)
[2016-09-10 08:19] VITALS: BP 112/59; PULSE 76; RESP 16; TEMP 97.5; O2SAT 96
[2016-09-10] MEDS: SODIUM CHLORIDE 0.9% FLUSH 5 ML FLUSH FLUSH SCH ×2 (09:00→20:48)
[2016-09-10] MEDS: CALAMINE/PRAMOXINE LOTION 180 ML BTL TOPICAL SCH ×2 (09:00→20:47)
[2016-09-10] MEDS: LACTOBACILLUS ACIDOPHILUS TAB PO SCH ×2 (09:27→20:48)
[2016-09-10] MEDS: LISINOPRIL 10 MG TAB PO SCH (09:27)
[2016-09-10] MEDS: ASPIRIN EC 81 MG TABEC PO SCH (09:27)
[2016-09-10] MEDS: PANTOPRAZOLE SOD 40 MG DELAYED RELEASE TAB PO SCH ×2 (09:28→20:43)
[2016-09-10] MEDS: FUROSEMIDE 20 MG TAB PO SCH (09:28)
[2016-09-10] MEDS: METOCLOPRAMIDE HCL 10 MG/2 ML VIAL IV PUSH SCH ×3 (09:29→16:43)
[2016-09-10] MEDS: MUPIROCIN 2% CREAM 15 GM TOPICAL SCH ×2 (09:29→20:48)
--- NOTE | 2016-09-10 10:21 | HHI.GIFU ---
Subjective Remarks Patient resting in bed. States she continues to have nausea and is unable to eat anythingincluding clear liquids because the smell makes her very nauseous. She has ongoing abdominal pain in her upper abdomen. She she reports that she had to loose bowel movements earlier today. When I first saw her, she reported that she was unable to take even clear liquids. But then told me that she tolerated a popsicle and requested that I go to the kitchen and get her a glass of ice with lemon twist and was able to direct me to where the kitchen was on the floor. (Chastity Sutherland) Objective Vitals I&O Vital Signs Date Time Temp Pulse Resp B/P Pulse Ox O2 Delivery O2 Flow Rate FiO2 09/10/16 08:19 97.5 76 16 112/59 96 09/10/16 04:00 98.3 83 20 111/64 97 09/10/16 00:30 16 09/10/16 00:00 97.6 79 18 115/53 97 09/09/16 20:00 97.9 79 20 116/62 97 09/09/16 20:00 77 09/09/16 18:30 82 09/09/16 16:35 96.8 82 20 122/68 96 09/09/16 11:35 96.5 88 20 111/69 96 I/O 09/09/16 09/09/16 09/09/16 09/10/16 09/10/16 09/10/16 07:00 15:00 23:00 07:00 15:00 23:00 Intake Total 240 ml 0 ml Balance 240 ml 0 ml Intake Oral 240 ml 0 ml # Voids 1 2 1 1 # Bowel Movements 4 3 2 Imaging Last Impressions Abdomen/Pelvis CT 09/08/16 0000 Signed Impressions: Service Date/Time: Thursday, September 08, 2016 21:55 - CONCLUSION: 1. No acute findings within the abdomen and pelvis. Colonic diverticulosis without diverticulitis. Previous gastric bypass surgery. 2. Small left-sided pleural effusion with mild basilar atelectasis. 3. Atrophic left kidney. Dillon Romero MD Hip MRI 07/05/16 0000 Signed Impressions: Service Date/Time: Tuesday, July 05, 2016 10:51 - CONCLUSION: 1. There is osteopenia primary degenerative changes at both hips, left greater than right. 2. Prominent osteophyte along the inferior articulating surface of the proximal left femur. 3. Nonspecific edema in the gluteus and hamstring muscles. 4. No acute bony fracture. Javier Fishman MD Lower Extremity Ultrasound 06/29/16 0000 Signed Impressions: Service Date/Time: Wednesday, June 29, 2016 10:07 - CONCLUSION: Negative for deep venous thrombosis. Alfredo Sanders MD FACR Cervical Spine MRI 06/27/16 0000 Signed Impressions: Service Date/Time: Monday, June 27, 2016 11:09 - CONCLUSION: Mild degenerative changes otherwise unremarkable cervical spine. Anselmo Leavitt MD Thoracic Spine MRI 06/25/16 0000 Signed Impressions: Service Date/Time: June 19:36 - CONCLUSION: 1. No fracture or subluxation of the thoracic spine. 2. Mild and fairly diffuse degenerative changes as above. 3. Mild left foraminal encroachment at T8/T9 and T9/T10. 4. No significant spinal stenosis at any level. 5. Incidentally seen tiny right and small left pleural effusions, nonspecific. Jeevan Arreola MD Lumbar Spine MRI 06/25/16 0000 Signed Impressions: Service Date/Time: June 19:36 - CONCLUSION: 1. Multilevel lumbar degenerative changes as detailed above. 2. Mild spinal stenosis at L3/L4 without evidence of transiting nerve root impingement. 3. Mild to moderate spinal stenosis at L4/L5 and possibly with mild mass effect/impingement on the transiting left L5 nerve root within the subarticular recess. 4. Mild bilateral foraminal encroachment L3/L4 and L4/L5. Mild to moderate bilateral foraminal encroachment at L5/S1. 5. No fracture or subluxation of the lumbar spine. Jeevan Arreola MD Hip and Pelvis X-Ray 06/25/16 0000 Signed Impressions: Service Date/Time: June 20:27 - CONCLUSION: Moderate to severe left hip' right is with considerable osteophytosis and an apparent large inferior joint body. No fracture or subluxation. Jeevan Arreola MD Chest X-Ray 06/23/16 1402 Signed Impressions: Service Date/Time: Thursday, June 23, 2016 14:13 - CONCLUSION: Normal examination. Elías Moreno MD Physical Exam HEENT: Normocephalic; atraumatic; no jaundice. CHEST: CTA, diminished CARDIAC: RRR ABDOMEN: Soft, nondistended, mild RUQ/LUQ/epigastric tenderness no hepatosplenomegaly; bowel sounds are present in all four quadrants. EXTREMITIES: Generalized edema. SKIN: fine spotted rash- healing to right ankle AIRPORT CONTROL OPERATOR: Lethargic and oriented times three. (Chastity Sutherland) Assessment and Plan Plan ASSESSMENT: - Reconsult for persistent N/V, ? gastroparesis. Of note, patient is s/p gastric bypass 5 years ago. She was evaluated with EGD/Colonoscopy (09/01/16)--- > esophageal ulcer Bx done, and anatomy C/W gastric bypass, colonoscopy showed diverticulosis, no sign of colitis. Pathology acute esophagitis, no fungal organisms are present. Abdomen/Pelvis CT (09/08/16)-----> 1. No acute findings within the abdomen and pelvis. Colonic diverticulosis without diverticulitis. Previous gastric bypass surgery. 2. Small left-sided pleural effusion with mild basilar atelectasis. 3. Atrophic left kidney. She initially told me that she could not even take clear liquids because of her nausea, but then said she was able to take a popsicle and was requesting for me to go get a "lemon twist" from the kitchen. PPI, Reglan, Zofran - Decreased appetite, Marinol. States she cannot eat because of nausea/vomiting. - Elevated LFTs on 09/08. Will recheck in am - Esophageal ulcer. PPI daily - Anemia, hemoccult positive stool. S/P 2 units PRBC, HH has remained stable since. .3. EGD/Colonoscopy as above. - CDiff colitis, s/p oral vanco, dificid. Colonoscopy without any signs of colitis. States diarrhea improved. Reports two loose stools. PLAN: - Full liquids - Protonix to BID dosing - Carafate 1 gram po TID-AC/HS- Refusing - Marinol- refusing - Reglan - Monitor labs - Supportive care - Further recommendations to follow based on results of above - Pt seen and examined by Dr. Walker and myself and this note is written on her behalf (Chastity Sutherland) Physician Comments seen, examined agree with above still diarrhea-s/p Dificid -we will recheck c diff if still nausea we will consider Scopolamine patch (Sun Walker MD) Chastity Sutherland Sep 10, 2016 10:21 Sun Walker MD Sep 10, 2016 15:36
[2016-09-10 12:32] VITALS: BP 136/72; PULSE 76; RESP 16; TEMP 98; O2SAT 98
[2016-09-10] MEDS: DRONABINOL 5 MG CAP PO SCH ×2 (12:32→16:43)
[2016-09-10] MEDS: ONDANSETRON HCL 4 MG/2 ML VIAL IV PUSH PRN (12:33)
[2016-09-10] MEDS ORDERED: HOSP BED2 (15:13)
[2016-09-10 16:13] VITALS: BP 120/62; PULSE 76; RESP 16; TEMP 97.6; O2SAT 97
--- NOTE | 2016-09-10 16:16 | HHI.PR ---
Subjective Remarks Follow-up for persistent nausea and diarrhea. The patient states she continues to have gagging, but with phlegm and no vomit. She had 2 large episodes of loose stool today. She doesn't think that she is able to tolerate much oral intake. Apprehensive about PEG tube placement. She feels that if she had a hospital bed at home and her diarrhea was improved, she could potentially go home where her could care for her. Objective Vitals Vital Signs Date Time Temp Pulse Resp B/P Pulse Ox O2 Delivery O2 Flow Rate FiO2 09/10/16 12:32 98.0 76 16 136/72 98 09/10/16 08:19 97.5 76 16 112/59 96 09/10/16 04:00 98.3 83 20 111/64 97 09/10/16 00:30 16 09/10/16 00:00 97.6 79 18 115/53 97 09/09/16 20:00 97.9 79 20 116/62 97 09/09/16 20:00 77 09/09/16 18:30 82 09/09/16 16:35 96.8 82 20 122/68 96 I/O 09/09/16 09/09/16 09/09/16 09/10/16 09/10/16 09/10/16 07:00 15:00 23:00 07:00 15:00 23:00 Intake Total 240 ml 0 ml Balance 240 ml 0 ml Intake Oral 240 ml 0 ml # Voids 1 2 1 1 # Bowel Movements 4 3 2 Result Diagram: 09/07/16 0744 09/08/16 1206 Objective Remarks GENERAL: Well-developed well-nourished. Morbidly obese. In no acute distress. SKIN: Warm and dry. HEENT: Normocephalic. Pupils equal and round. Mucous membranes pink and moist. CARDIOVASCULAR: Regular rate and rhythm. No murmur appreciated. RESPIRATORY: No accessory muscle use. Clear to auscultation. Breath sounds equal bilaterally. GASTROINTESTINAL: Abdomen soft, non-tender, nondistended. Bowel sounds x4. MUSCULOSKELETAL: No obvious deformities. No edema. NEUROLOGICAL: Awake and alert. No focal neurological deficits. Moves upper and lower extremities spontaneously. Normal speech. PSYCHIATRIC: Appropriate mood and affect; insight and judgment normal. Procedures none A/P Problem List: (1) Total self-care deficit ICD Code: R41.89 Status: Acute (2) Sacral pressure ulcer ICD Code: L89.159 Status: Chronic (3) Subclinical hypothyroidism ICD Code: E03.9 Status: Acute (4) Radiculopathy of lumbar region ICD Code: M54.16 Status: Acute Assessment and Plan Mrs. Arreola is a 70-year-old female with a known history of hypertension, obesity , arthritis, status post gastric bypass who presented to the ED on 06/23/16 with complaints of generalized weakness for two weeks. Apparently patient had been discharged on 06/08/16 with home health care and sustained a fall at home with progressive weakness. Supposedly she is wheelchair bound at home and unable to transfer independently. Poor appetite secondary to nausea and vomiting: Encourage PO intake as tolerated. Zofran IV PRN. Continue Reglan. Continue Marinol for appetite stimulant. Dietitian consult for calorie count, may need to consider PEG tube for supplemental feeding. Full liquids per GI. Epigastric pain likely secondary to ulcer: Continue Protonix. Sacral pressure ulcer, resolved: Encourage repositioning patient every 2 hours. Specialty mattress continued. C. difficile diarrhea: Diarrhea is currently improved. Last BM 09/05. Last Tox PCR positive on 08/19. Has previously been treated with Flagyl, oral vancomycin. ID previously consulted on 08/20 with recommendations to discontinue Vanco and begin Dificid, completed course of Dificid. Continue Questran. Generalized weakness: Continue physical therapy. Will need nursing facility at discharge, case management following. Lumbar radiculopathy: Neurosurgery signed off, no surgical intervention recommended at this time. Control pain [place] PRN per pain scale. Anemia, GI bleed: Stool Hemoccult is positive on 08/30. Status post EGD, which showed esophageal ulcer. S/p transfusion 2 units on 09/02. Hb stable. Other chronic medical history includes osteoarthritis, CKD stage III are stable at this time. DVT prophylaxis: SCDs/TEDs. Written by Andrea Granados, acting as scribe for Dr. Willard on 09/10/16 at 16:14. Discharge Planning Prescription for hospital bed written. Could potentially go home with [facility] if diarrhea improves. Attending Statement This note was transcribed by scribe. I, Dr. Noy Willard personally performed the history, physical exam, and medical decision making; and confirmed the accuracy of the information in the transcribed note. Problem Qualifiers (1) Sacral pressure ulcer: Qualified Code: L89.151 - Decubitus ulcer of sacral region, stage 1 Andrea Granados Sep 10, 2016 16:16 Noy Willard MD September 22, 2016 11:09
[2016-09-10 20:00] VITALS: BP 112/59; PULSE 80; RESP 20; TEMP 96.8; O2SAT 96
[2016-09-10] MEDS: SERTRALINE HCL 100 MG TAB PO SCH (20:42)
[2016-09-10] MEDS: CETIRIZINE HCL 10 MG TAB PO SCH (20:42)
[2016-09-10] MEDS: ACETAMINOPHEN/HYDROcodone 325 MG/5 MG TAB PO PRN (20:47)
[2016-09-11] VITALS (8 sets, daily range): BP systolic 113–131; BP diastolic 55–69; PULSE 71–84; RESP 16–20; TEMP 96.3–98.5; O2SAT 95–97
[2016-09-11] MEDS: SUCRALFATE 1 GM/10 ML CUP PO SCH ×4 (05:31→21:00)
[2016-09-11] MEDS: CALAMINE/PRAMOXINE LOTION 180 ML BTL TOPICAL SCH ×2 (10:16→21:00)
[2016-09-11] MEDS: ASPIRIN EC 81 MG TABEC PO SCH (10:19)
[2016-09-11] MEDS: LACTOBACILLUS ACIDOPHILUS TAB PO SCH ×2 (10:19→21:00)
[2016-09-11] MEDS: PANTOPRAZOLE SOD 40 MG DELAYED RELEASE TAB PO SCH ×2 (10:20→21:00)
[2016-09-11] MEDS: FUROSEMIDE 20 MG TAB PO SCH (10:20)
[2016-09-11] MEDS: LISINOPRIL 10 MG TAB PO SCH (10:20)
[2016-09-11] MEDS: METOCLOPRAMIDE HCL 10 MG/2 ML VIAL IV PUSH SCH ×3 (10:21→17:45)
[2016-09-11] MEDS: SODIUM CHLORIDE 0.9% FLUSH 5 ML FLUSH FLUSH SCH ×2 (10:22→21:00)
[2016-09-11] MEDS: DRONABINOL 5 MG CAP PO SCH ×2 (11:00→17:49)
[2016-09-11] MEDS: MUPIROCIN 2% CREAM 15 GM TOPICAL SCH ×2 (15:03→22:35)
--- NOTE | 2016-09-11 17:35 | HHI.GIFU ---
Subjective Remarks Resting in bed. Still having nausea, not able to take her clear liquid diet. Does sip on soda and take a few jelly beans throughout the day. States 3 BMs so far today. Repeat CDiff still pending. Objective Vitals I&O Vital Signs Date Time Temp Pulse Resp B/P Pulse Ox O2 Delivery O2 Flow Rate FiO2 09/11/16 16:11 98.5 81 16 115/69 95 09/11/16 12:30 97.8 76 16 115/64 97 09/11/16 10:27 81 09/11/16 08:08 96.8 71 20 117/55 95 09/11/16 04:00 96.8 78 20 131/60 96 09/11/16 00:00 96.7 84 20 119/57 96 09/10/16 20:00 96.8 80 20 112/59 96 I/O 09/10/16 09/10/16 09/10/16 09/11/16 09/11/16 09/11/16 07:00 15:00 23:00 07:00 15:00 23:00 Intake Total 0 ml 120 ml 60 ml 620 ml Balance 0 ml 120 ml 60 ml 620 ml Intake Oral 0 ml 120 ml 60 ml 620 ml # Voids 1 3 1 2 # Bowel Movements 2 2 0 2 Imaging Last Impressions Abdomen/Pelvis CT 09/08/16 0000 Signed Impressions: Service Date/Time: Thursday, September 08, 2016 21:55 - CONCLUSION: 1. No acute findings within the abdomen and pelvis. Colonic diverticulosis without diverticulitis. Previous gastric bypass surgery. 2. Small left-sided pleural effusion with mild basilar atelectasis. 3. Atrophic left kidney. Dillon Romero MD Hip MRI 07/05/16 0000 Signed Impressions: Service Date/Time: Tuesday, July 05, 2016 10:51 - CONCLUSION: 1. There is osteopenia primary degenerative changes at both hips, left greater than right. 2. Prominent osteophyte along the inferior articulating surface of the proximal left femur. 3. Nonspecific edema in the gluteus and hamstring muscles. 4. No acute bony fracture. Javier Fishman MD Lower Extremity Ultrasound 06/29/16 0000 Signed Impressions: Service Date/Time: Wednesday, June 29, 2016 10:07 - CONCLUSION: Negative for deep venous thrombosis. Alfredo Sanders MD FACR Cervical Spine MRI 06/27/16 0000 Signed Impressions: Service Date/Time: Monday, June 27, 2016 11:09 - CONCLUSION: Mild degenerative changes otherwise unremarkable cervical spine. Anselmo Leavitt MD Thoracic Spine MRI 06/25/16 0000 Signed Impressions: Service Date/Time: June 19:36 - CONCLUSION: 1. No fracture or subluxation of the thoracic spine. 2. Mild and fairly diffuse degenerative changes as above. 3. Mild left foraminal encroachment at T8/T9 and T9/T10. 4. No significant spinal stenosis at any level. 5. Incidentally seen tiny right and small left pleural effusions, nonspecific. Jeevan Arreola MD Lumbar Spine MRI 06/25/16 0000 Signed Impressions: Service Date/Time: June 19:36 - CONCLUSION: 1. Multilevel lumbar degenerative changes as detailed above. 2. Mild spinal stenosis at L3/L4 without evidence of transiting nerve root impingement. 3. Mild to moderate spinal stenosis at L4/L5 and possibly with mild mass effect/impingement on the transiting left L5 nerve root within the subarticular recess. 4. Mild bilateral foraminal encroachment L3/L4 and L4/L5. Mild to moderate bilateral foraminal encroachment at L5/S1. 5. No fracture or subluxation of the lumbar spine. Jeevan Arreola MD Hip and Pelvis X-Ray 06/25/16 0000 Signed Impressions: Service Date/Time: June 20:27 - CONCLUSION: Moderate to severe left hip' right is with considerable osteophytosis and an apparent large inferior joint body. No fracture or subluxation. Jeevan Arreola MD Chest X-Ray 06/23/16 1402 Signed Impressions: Service Date/Time: Thursday, June 23, 2016 14:13 - CONCLUSION: Normal examination. Elías Moreno MD Physical Exam HEENT: Normocephalic; atraumatic; no jaundice. CHEST: CTA, diminished CARDIAC: RRR ABDOMEN: Soft, nondistended, mild RUQ/LUQ/epigastric tenderness no hepatosplenomegaly; bowel sounds are present in all four quadrants. EXTREMITIES: Generalized edema. SKIN: fine spotted rash- healing to right ankle COMPUTATOR: Lethargic and oriented times three. Assessment and Plan Plan ASSESSMENT: - Persistent N/V, ? gastroparesis. Of note, patient is s/p gastric bypass 5 years ago. She was evaluated with EGD/Colonoscopy (09/01/16)---> esophageal ulcer Bx done, and anatomy C/W gastric bypass, colonoscopy showed diverticulosis, no sign of colitis. Pathology acute esophagitis, no fungal organisms are present. Abdomen/Pelvis CT (09/08/16)-----> 1. No acute findings within the abdomen and pelvis. Colonic diverticulosis without diverticulitis. Previous gastric bypass surgery. 2. Small left-sided pleural effusion with mild basilar atelectasis. 3. Atrophic left kidney. Still having persistent nausea- no vomiting. Unable to take clear liquid tray, but does take sips of soda and jelly beans throughout the day. PPI, Reglan, Zofran Will give trial of scopolamine. - Decreased appetite, Marinol. States she cannot eat because of nausea/vomiting. - Elevated LFTs. Stable. Will monitor. - Esophageal ulcer. PPI daily - Anemia, hemoccult positive stool. S/P 2 units PRBC, HH has remained stable since. EGD/Colonoscopy as above. - CDiff colitis, s/p oral vanco, dificid. Colonoscopy without any signs of colitis. States diarrhea improved. Reports 3 loose stools. Will get repeat CDiff stool. PLAN: - Full liquids - Trial of scopolamine - Cont. Protonix - Cont. Carafate - Cont. Marinol - Cont. Reglan - Monitor labs - Rpt. Stool CDiff. - Supportive care - Further recommendations to follow based on results of above - Pt seen and examined by Dr. Walker and myself and this note is written on her behalf Chastity Sutherland Sep 11, 2016 17:35
[2016-09-11] MEDS: SCOPOLAMINE 1.5 MG PATCH T-DERMAL SCH (17:56)
[2016-09-11] MEDS ORDERED: SODIUM CHLORID 0.9% 500 ML INJ 500 ML IV SCH (18:15)
--- NOTE | 2016-09-11 18:30 | HHI.PR ---
Subjective Remarks Follow-up for persistent nausea. Discussed with RN, patient has not been tolerating oral intake at all today. Patient states she continues to have persistent nausea and gagging phlegm, no vomiting. She had a watery bowel movement today. She does have a new scopolamine patch, and hopes it'll help the nausea. She is warming up to the idea PEG tube placement. Objective Vitals Vital Signs Date Time Temp Pulse Resp B/P Pulse Ox O2 Delivery O2 Flow Rate FiO2 09/11/16 16:11 98.5 81 16 115/69 95 09/11/16 12:30 97.8 76 16 115/64 97 09/11/16 10:27 81 09/11/16 08:08 96.8 71 20 117/55 95 09/11/16 04:00 96.8 78 20 131/60 96 09/11/16 00:00 96.7 84 20 119/57 96 09/10/16 20:00 96.8 80 20 112/59 96 I/O 09/10/16 09/10/16 09/10/16 09/11/16 09/11/16 09/11/16 07:00 15:00 23:00 07:00 15:00 23:00 Intake Total 0 ml 120 ml 60 ml 620 ml Balance 0 ml 120 ml 60 ml 620 ml Intake Oral 0 ml 120 ml 60 ml 620 ml # Voids 1 3 1 2 # Bowel Movements 2 2 0 2 Result Diagram: 09/07/16 0744 09/08/16 1206 Objective Remarks GENERAL: Well-developed well-nourished. Morbidly obese. In no acute distress. Appears clinically dry. SKIN: Warm and dry. No lesions noted. HEENT: Normocephalic. Pupils equal and round. CARDIOVASCULAR: Regular rate and rhythm. No murmur appreciated. RESPIRATORY: No accessory muscle use. Clear to auscultation. Breath sounds equal bilaterally. GASTROINTESTINAL: Abdomen soft, non-tender, nondistended. Bowel sounds x4. MUSCULOSKELETAL: No obvious deformities. No edema. NEUROLOGICAL: Awake and alert. No focal neurological deficits. Moves upper and lower extremities spontaneously. Normal speech. PSYCHIATRIC: Appropriate mood and affect; insight and judgment normal. Procedures none A/P Problem List: (1) Total self-care deficit ICD Code: R41.89 Status: Acute (2) Sacral pressure ulcer ICD Code: L89.159 Status: Chronic (3) Subclinical hypothyroidism ICD Code: E03.9 Status: Acute (4) Radiculopathy of lumbar region ICD Code: M54.16 Status: Acute Assessment and Plan Mrs. Arreola is a 70-year-old female with a known history of hypertension, obesity , arthritis, status post gastric bypass who presented to the ED on 06/23/16 with complaints of generalized weakness for two weeks. Apparently patient had been discharged on 06/08/16 with home health care and sustained a fall at home with progressive weakness. Supposedly she is wheelchair bound at home and unable to transfer independently. Poor appetite secondary to nausea and vomiting: Encourage PO intake as tolerated. Zofran IV PRN. Continue IV Reglan. Continue Marinol for appetite stimulant. Dietitian consulted for calorie count, may need to consider PEG tube for supplemental feeding. Full liquids per GI. 09/11 give gentle IVF Epigastric pain likely secondary to ulcer: Continue Protonix. Sacral pressure ulcer, resolved: Encourage repositioning patient every 2 hours. Specialty mattress continued. C. difficile diarrhea: Diarrhea is currently improved. Last BM 09/05. Last Tox PCR positive on 08/19. Has previously been treated with Flagyl, oral vancomycin. ID previously consulted on 08/20 with recommendations to discontinue Vanco and begin Dificid, completed course of Dificid. Generalized weakness: Continue physical therapy. Will need nursing facility at discharge, case management following. Lumbar radiculopathy: Neurosurgery signed off, no surgical intervention recommended at this time. Control pain [place] PRN per pain scale. Anemia, GI bleed: Stool Hemoccult is positive on 08/30. Status post EGD, which showed esophageal ulcer. S/p transfusion 2 units on 09/02. Hb stable. Other chronic medical history includes osteoarthritis, CKD stage III are stable at this time. DVT prophylaxis: SCDs/TEDs. Discussed with Dr. Willard Discharge Planning Prescription for hospital bed written. Could potentially go home with [facility] if diarrhea improves. Problem Qualifiers (1) Sacral pressure ulcer: Qualified Code: L89.151 - Decubitus ulcer of sacral region, stage 1 Andrea Granados Sep 11, 2016 18:30
[2016-09-11] MEDS: CETIRIZINE HCL 10 MG TAB PO SCH (21:00)
[2016-09-11] MEDS: SERTRALINE HCL 100 MG TAB PO SCH (21:00)
[2016-09-12] VITALS (9 sets, daily range): BP systolic 112–138; BP diastolic 58–68; PULSE 75–88; RESP 18–20; TEMP 96.1–98.7; O2SAT 94–96
[2016-09-12] MEDS: SUCRALFATE 1 GM/10 ML CUP PO SCH ×4 (07:00→21:00)
[2016-09-12] MEDS: SODIUM CHLORIDE 0.9% FLUSH 5 ML FLUSH FLUSH SCH ×2 (09:00→21:00)
[2016-09-12] MEDS: CALAMINE/PRAMOXINE LOTION 180 ML BTL TOPICAL SCH ×2 (09:00→21:00)
[2016-09-12] MEDS: LISINOPRIL 10 MG TAB PO SCH (09:00)
[2016-09-12] MEDS: LACTOBACILLUS ACIDOPHILUS TAB PO SCH ×2 (09:00→21:00)
[2016-09-12] MEDS: PANTOPRAZOLE SOD 40 MG DELAYED RELEASE TAB PO SCH ×2 (09:00→21:00)
[2016-09-12] MEDS: ASPIRIN EC 81 MG TABEC PO SCH (09:00)
[2016-09-12] MEDS: MUPIROCIN 2% CREAM 15 GM TOPICAL SCH ×2 (09:00→21:00)
[2016-09-12] MEDS: METOCLOPRAMIDE HCL 10 MG/2 ML VIAL IV PUSH SCH ×3 (09:03→18:16)
[2016-09-12] MEDS: DRONABINOL 5 MG CAP PO SCH ×2 (11:00→16:00)
[2016-09-12 11:14] LABS: BASOPHIL # 0.1 TH/MM3 (0-0.2); EOSINOPHIL # 0.5 TH/MM3 (0-0.4); EOSINOPHIL % 5.9 % (0.0-4.0); HEMATOCRIT 26.4 % (35.0-46.0); LYMPH % 24.2 % (9.0-44.0); LYMPHOCYTE # 1.9 TH/MM3 (1.0-4.8); MEAN CELL VOLUME 77.1 FL (80.0-100.0); MEAN CORPUSCULAR HEMOGLOBIN 25.4 PG (27.0-34.0); MEAN CORPUSCULAR HGB CONC 32.9 % (32.0-36.0); NEUT % 62.9 % (16.0-70.0); PLATELET COUNT 229 TH/MM3 (150-450); RED BLOOD COUNT 3.43 MIL/MM3 (4.00-5.30); RED CELL DISTRIBUTION WIDTH 20.3 % (11.6-17.2)
[2016-09-12 11:26] LABS: HEMO FLAGS AUTO DIFF
[2016-09-12 11:40] LABS: BICARBONATE 25.6 MEQ/L (21.0-32.0)
[2016-09-12 11:49] LABS: ACANTHOCYTES OCC (NORMAL); TARGET CELLS 1+ (NORMAL)
[2016-09-12 11:50] LABS: PLATELET ESTIMATE SMEAR NORMAL (NORMAL); PLATELET MORPHOLOGY ENLARGED (NORMAL); SCAN/DIFF AUTO DIFF CONFIRMED
--- NOTE | 2016-09-12 12:11 | HHI.PR ---
Subjective Remarks Follow-up for intractable nausea. The patient continues to report intractable nausea with dry heaving overnight. Unable to tolerate any oral intake including medications. No improvement with scopolamine patch overnight. She denies any history of diabetes. Objective Vitals Vital Signs Date Time Temp Pulse Resp B/P Pulse Ox O2 Delivery O2 Flow Rate FiO2 09/12/16 08:05 97.8 79 18 119/58 94 09/12/16 04:00 96.8 75 20 138/63 96 09/12/16 00:00 96.1 80 20 116/60 96 09/11/16 20:45 78 09/11/16 20:00 96.3 80 20 113/56 97 09/11/16 16:11 98.5 81 16 115/69 95 09/11/16 12:30 97.8 76 16 115/64 97 I/O 09/11/16 09/11/16 09/11/16 09/12/16 09/12/16 09/12/16 07:00 15:00 23:00 07:00 15:00 23:00 Intake Total 60 ml 620 ml 450 ml 120 ml Balance 60 ml 620 ml 450 ml 120 ml Intake Oral 60 ml 620 ml 240 ml 120 ml IV Total 210 ml # Voids 1 2 1 2 # Bowel Movements 0 2 0 0 Result Diagram: 09/12/16 1058 09/12/16 1058 Objective Remarks GENERAL: Well-developed well-nourished. Morbidly obese. In no acute distress. SKIN: Warm and dry. Decreased skin turgor. HEENT: Normocephalic. Pupils equal and round. Mucous membranes dry. CARDIOVASCULAR: Regular rate and rhythm. No murmur appreciated. RESPIRATORY: No accessory muscle use. Clear to auscultation. Breath sounds equal bilaterally. GASTROINTESTINAL: Abdomen soft, non-tender, nondistended. Bowel sounds x4. MUSCULOSKELETAL: No obvious deformities. No edema. NEUROLOGICAL: Awake and alert. No focal neurological deficits. Moves upper and lower extremities spontaneously. Normal speech. PSYCHIATRIC: Appropriate mood and affect; insight and judgment normal. Procedures none A/P Problem List: (1) Total self-care deficit ICD Code: R41.89 Status: Acute (2) Sacral pressure ulcer ICD Code: L89.159 Status: Chronic (3) Subclinical hypothyroidism ICD Code: E03.9 Status: Acute (4) Radiculopathy of lumbar region ICD Code: M54.16 Status: Acute Assessment and Plan Mrs. Arreola is a 70-year-old female with a known history of hypertension, obesity , arthritis, status post gastric bypass who presented to the ED on 06/23/16 with complaints of generalized weakness for two weeks. Apparently patient had been discharged on 06/08/16 with home health care and sustained a fall at home with progressive weakness. Supposedly she is wheelchair bound at home and unable to transfer independently. Poor appetite secondary to nausea and vomiting: Encourage PO intake as tolerated. Zofran IV PRN. Continue IV Reglan. Continue Marinol for appetite stimulant. Dietitian consulted for calorie count, may need to consider PEG tube for supplemental feeding. Full liquids per GI. GI added scopolamine. BMP with signs of hemoconcentration/dehydration. Start continuous IVF with D5. Consult palliative care. Hypokalemia: Potassium 3.0. Not tolerating oral intake. Give IV potassium. Magnesium within normal limits. Follow-up BMP in the a.m. Epigastric pain likely secondary to ulcer: Continue Protonix. Sacral pressure ulcer, resolved: Encourage repositioning patient every 2 hours. Specialty mattress continued. C. difficile diarrhea: Diarrhea is currently improved. Last BM 09/05. Last Tox PCR positive on 08/19. Has previously been treated with Flagyl, oral vancomycin. ID previously consulted on 08/20 with recommendations to discontinue Vanco and begin Dificid, completed course of Dificid. Generalized weakness: Continue physical therapy. Will need nursing facility at discharge, case management following. Lumbar radiculopathy: Neurosurgery signed off, no surgical intervention recommended at this time. Control pain [place] PRN per pain scale. Anemia, GI bleed: Stool Hemoccult is positive on 08/30. Status post EGD, which showed esophageal ulcer. S/p transfusion 2 units on 09/02. Hb stable. Other chronic medical history includes osteoarthritis, CKD stage III are stable at this time. DVT prophylaxis: SCDs/TEDs. Discharge Planning Difficult placement. Prescription for hospital bed written. Problem Qualifiers (1) Sacral pressure ulcer: Qualified Code: L89.151 - Decubitus ulcer of sacral region, stage 1 Andrea Granados Sep 12, 2016 12:11
[2016-09-12] MEDS: D5-1/2 NS + KCL 20 MEQ INJ 1,000 ML IV SCH (13:35)
[2016-09-12] MEDS: POTASSIUM CHLOR 10 MEQ PREMIX 100 ML IV SCH ×3 (13:35→15:00)
[2016-09-12] MEDS: ONDANSETRON HCL 4 MG/2 ML VIAL IV PUSH PRN (14:14)
[2016-09-12] MEDS: ACETAMINOPHEN/HYDROcodone 325 MG/5 MG TAB PO PRN (18:16)
[2016-09-12] MEDS: hydrOXYzine HCL 25 MG TAB PO PRN (18:17)
[2016-09-12] MEDS: CETIRIZINE HCL 10 MG TAB PO SCH (21:00)
[2016-09-12] MEDS: SERTRALINE HCL 100 MG TAB PO SCH (21:00)
[2016-09-13] VITALS (8 sets, daily range): BP systolic 112–129; BP diastolic 59–74; PULSE 71–85; RESP 17–20; TEMP 95.7–98.4; O2SAT 94–99
[2016-09-13] MEDS: D5-1/2 NS + KCL 20 MEQ INJ 1,000 ML IV SCH ×2 (00:10→15:16)
[2016-09-13] MEDS: SUCRALFATE 1 GM/10 ML CUP PO SCH ×4 (06:19→20:53)
[2016-09-13] MEDS: CALAMINE/PRAMOXINE LOTION 180 ML BTL TOPICAL SCH ×2 (09:00→20:54)
[2016-09-13] MEDS: MUPIROCIN 2% CREAM 15 GM TOPICAL SCH ×2 (09:00→20:53)
[2016-09-13] MEDS: ASPIRIN EC 81 MG TABEC PO SCH (09:00)
[2016-09-13] MEDS: LISINOPRIL 10 MG TAB PO SCH (09:00)
[2016-09-13] MEDS: PANTOPRAZOLE SOD 40 MG DELAYED RELEASE TAB PO SCH (09:00)
[2016-09-13] MEDS: LACTOBACILLUS ACIDOPHILUS TAB PO SCH ×2 (09:00→20:53)
[2016-09-13] MEDS: SODIUM CHLORIDE 0.9% FLUSH 5 ML FLUSH FLUSH SCH ×2 (09:00→20:53)
[2016-09-13] MEDS ORDERED: POTASSIUM CHLORIDE 10 MEQ CONTROLLED RELEASE TAB PO ONE (09:15)
[2016-09-13] MEDS: METOCLOPRAMIDE HCL 10 MG/2 ML VIAL IV PUSH SCH ×3 (10:35→17:00)
[2016-09-13] MEDS ORDERED: POTASSIUM CHLOR 10 MEQ PREMIX 100 ML IV ONE (10:45)
[2016-09-13] MEDS: DRONABINOL 5 MG CAP PO SCH ×2 (11:00→15:18)
--- NOTE | 2016-09-13 12:30 | HHI.PR ---
Subjective Remarks Follow-up for nausea vomiting most likely secondary to gastroparesis Patient stated that she continue spelled nauseous and not able to take any by mouth intake. Otherwise she has no other complaints. She remains afebrile events history is lasting. Objective Vitals Vital Signs Date Time Temp Pulse Resp B/P Pulse Ox O2 Delivery O2 Flow Rate FiO2 09/13/16 12:07 96.7 71 18 117/66 95 09/13/16 08:36 97.1 85 17 118/70 98 09/13/16 04:00 95.7 75 18 129/59 98 09/13/16 00:00 97.3 72 18 124/69 95 09/12/16 23:25 88 09/12/16 20:00 97.6 78 18 127/68 95 09/12/16 19:00 75 09/12/16 16:18 97.7 79 18 112/63 95 I/O 09/12/16 09/12/16 09/12/16 09/13/16 09/13/16 09/13/16 06:59 14:59 22:59 06:59 14:59 22:59 Intake Total 120 ml 240 ml Balance 120 ml 240 ml Intake Oral 120 ml 240 ml # Voids 2 1 2 # Bowel Movements 0 Result Diagram: 09/12/16 1058 09/12/16 1058 Imaging GENERAL: in [place] CARDIOVASCULAR: Regular rate and rhythm without murmurs, gallops, or rubs. RESPIRATORY: Breath sounds equal bilaterally. No accessory muscle use. GASTROINTESTINAL: Abdomen soft, non-tender, nondistended. MUSCULOSKELETAL: No cyanosis, or edema. BACK: Nontender without obvious deformity. No CVA tenderness. Objective Remarks Gen morbidly obese CV RRR. no r/m/g Ext 5/5 LE strength Procedures none Medications and IVs Current Medications IV Flush 2 ml 2 ml UNSCH PRN IVF FLUSH AFTER USING IV ACCESS; Start 06/23/16 at 14:15; Stop 06/23/16 at 20:00; Status DC Sodium Chloride 1,000 ml @ 1,000 mls/hr Q1H ONCE IV Last administered on t 15:37; Start 06/23/16 at 14:02; Stop 06/23/16 at 15:01; Status DC Ceftriaxone Sodium/Sodium Chloride (Rocephin Inj/NS Inj) 100 ml @ 200 mls/hr ONCE ONCE IV Last administered on 06/23/16 18:25; Start 06/23/16 at 18:00; Stop 06/23/16 at 18:29; Status DC IV Flush (NS Flush) 2 ml UNSCH PRN FLUSH FLUSH AFTER USING IV ACCESS Last administered on 07/25/16 18:44; Start 06/23/16 at 20:00 IV Flush (NS Flush) 2 ml BID FLUSH Last administered on 09/12/16 09:00; Start 06/23/16 at 21:00 Enoxaparin Sodium (Lovenox Inj) 40 mg Q24H SQ Last administered on 08/31/16 09 :20; Start 06/24/16 at 09:00; Status Hold Naloxone HCl 0.4 mg 0.4 mg UNSCH PRN IV SEE LABEL COMMENTS; Start 06/23/16 at 20:00 Levofloxacin/ Dextrose (Levaquin 750 Mg Premix Inj) 150 ml @ 100 mls/hr Q24H IV Last administered on 06/23/16 22:06; Start 06/23/16 at 21:00; Stop 06/24/16 at 09:56; Status DC Acetaminophen/ Hydrocodone Bitart ([place] 5-325 Mg) 1 tab Q6H PRN PO pain >5 Last administered on 06/23/16 22:31; Start 06/23/16 at 22:30; Stop 06/24/16 at 09:59; Status DC Nitrofurantoin Macrocrystals (Macrobid) 100 mg BIDPC PO Last administered on 10:28; Start 06/24/16 at 18:00; Stop 06/25/16 at 13:15; Status DC Amlodipine Besylate (Norvasc) 10 mg DAILY PO Last administered on 09/10/16 09: 27; Start 06/24/16 at 10:00 Aspirin (Ecotrin Ec) 81 mg DAILY PO Last administered on 09/10/16 09:27; Start 06/25/16 at 09:00 Famotidine (Pepcid) 20 mg BID PO Last administered on 07/09/16 09:23; Start at 21:00; Stop 07/09/16 at 15:35; Status DC Furosemide (Lasix) 20 mg DAILY PO Last administered on 09/10/16 09:28; Start 06/25/16 at 09:00; Status Hold Lisinopril (Prinivil) 20 mg DAILY PO Last administered on 08/13/16 09:45; Start 06/24/16 at 10:00; Stop 08/13/16 at 19:10; Status DC Meloxicam (Mobic) 7.5 mg BID PO Last administered on 07/08/16 10:10; Start 06/24/16 at 21:00; Stop 07/08/16 at 17:43; Status DC Potassium Chloride (KCl) 10 meq DAILY PO Last administered on 07/09/16 09:23; Start 06/25/16 at 09:00; Stop 07/09/16 at 14:35; Status DC Sertraline HCl (Zoloft) 200 mg HS PO Last administered on 09/10/16 20:42; Start 06/24/16 at 21:00 Diphenhydramine HCl (Benadryl) 25 mg Q6H PRN PO itching Last administered on 11:45; Start 06/25/16 at 18:00; Stop 06/30/16 at 14:15; Status DC Acetaminophen (Tylenol) 650 mg Q6H PRN PO PAIN SCALE 1 TO 2; Start 06/26/16 at 16:15 Acetaminophen/ Hydrocodone Bitart ([place] 5-325 Mg) 1 tab Q4H PRN PO PAIN SCALE 3 TO 10 Last administered on 09/12/16 18:16; Start 06/26/16 at 16:15 Acetaminophen/ Hydrocodone Bitart ([place] 7.5-325 Mg) 1 tab Q4H PRN PO PAIN SCALE 6 TO 10 Last administered on 08/05/16 15:19; Start 06/26/16 at 16:15; Stop 08/05/16 at 16:07; Status DC Calamine/Pramoxine (Caladryl Lotion) 1 applic Q12HR TOPICAL Last administered on 09/12/16 09:00; Start 06/27/16 at 09:00 Trimethoprim/ Sulfamethoxazole (Bactrim 400-80 Mg) 1 tab Q12HR PO Last administered on 07/08/16 10:12; Start 06/28/16 at 12:00; Stop 07/08/16 at 11:59 ; Status DC Cephalexin Monohydrate (Keflex) 250 mg Q8HR PO Last administered on 07/08/16 05:31; Start 06/28/16 at 14:00; Stop 07/08/16 at 13:59; Status DC Cetirizine HCl (ZyrTEC) 10 mg HS PO Last administered on 09/10/16 20:42; Start 06/29/16 at 21:00 Prednisone (Deltasone) 40 mg DAILY PO Last administered on 07/02/16 10:56; Start 06/29/16 at 10:00; Stop 07/02/16 at 09:59; Status DC Hydroxyzine HCl (Atarax) 10 mg Q6H PRN PO itching/anxiety Last administered on 07/02/16 11:03; Start 06/30/16 at 14:15; Stop 07/02/16 at 12:08; Status DC Hydroxyzine HCl (Atarax) 25 mg Q6H PRN PO ITCHING/ANXIETY Last administered on 07/08/16 17:16; Start 07/02/16 at 12:15; Stop 07/08/16 at 17:43; Status DC Metronidazole (Flagyl) 500 mg Q8HR PO Last administered on 07/17/16 21:05; Start 07/04/16 at 02:58; Stop 07/18/16 at 02:57; Status DC Lactobacillus Acidophilus (Lactinex) 1 tab Q12HR PO Last administered on 20:48; Start 07/04/16 at 21:00 Naloxone HCl (Narcan Inj) 0.4 mg UNSCH X1 PRN IV PUSH RESP DEPRESSION OR HYPOTENSION; Start 07/07/16 at 08:00; Stop 07/09/16 at 07:59; Status DC Ondansetron HCl (Zofran Inj) 4 mg Q6H PRN IV PUSH nausea Last administered on 14:14; Start 07/07/16 at 13:45 Nystatin (Mycostatin Cream) 1 applic Q12HR TOPICAL Last administered on 10:54; Start 07/07/16 at 15:00; Stop 07/13/16 at 13:48; Status DC Hydroxyzine HCl (Atarax) 50 mg Q6H PRN PO ITCHING/ANXIETY Last administered on 09/12/16 18:17; Start 07/08/16 at 18:15 Famotidine (Pepcid) 10 mg BID PO Last administered on 07/23/16 08:56; Start at 21:00; Stop 09/08/16 at 10:36; Status DC Miscellaneous (Pill Splitter) 1 ea UNSCH PRN OTHER SEE LABEL COMMENTS Last administered on 07/11/16 08:23; Start 07/09/16 at 15:45 Potassium Chloride (KCl) 10 meq ONCE ONCE PO Last administered on 07/10/16 17 :52; Start 07/10/16 at 17:30; Stop 07/10/16 at 17:31; Status DC Potassium Chloride (KCl) 10 meq ONCE ONCE PO Last administered on 07/11/16 11 :38; Start 07/11/16 at 11:30; Stop 07/11/16 at 11:31; Status DC Potassium Chloride (KCl) 20 meq ONCE ONCE PO Last administered on 07/13/16 11 :46; Start 07/13/16 at 12:00; Stop 07/13/16 at 12:01; Status DC Nystatin (Mycostatin Cream) 1 applic Q6HR TOPICAL Last administered on 23:11; Start 07/13/16 at 13:30; Stop 08/04/16 at 10:02; Status DC Mupirocin (Bactroban 2% Cream) 1 applic Q12HR TOPICAL Last administered on 09/12 09:00; Start 07/13/16 at 13:30 Nystatin (Mycostatin Liq) 5 ml QID SWISH-SWAL Last administered on 07/27/16 10 :16; Start 07/14/16 at 18:00; Stop 07/28/16 at 17:59; Status DC Promethazine HCl (Phenergan Inj) 25 mg ONCE ONCE IM Last administered on 21:30; Start 07/25/16 at 21:30; Stop 07/25/16 at 21:31; Status DC Metronidazole (Flagyl) 500 mg Q8HR PO ; Start 07/26/16 at 16:15; Stop 07/26/16 at 16:24; Status DC Vancomycin HCl (VANCOMYCIN for oral use only) 250 mg QID PO Last administered on 08/12/16 12:32; Start 07/26/16 at 18:00; Stop 08/12/16 at 14:30; Status DC Metoclopramide HCl 10 mg 10 mg ACHS PRN PO NAUSEA OR VOMITING Last administered on 07/31/16 22:02; Start 07/26/16 at 16:30; Stop 08/07/16 at 14:14 ; Status DC Magnesium Sulfate/ Dextrose (Magnesium Sulfate 1 Gm Premix) 100 ml @ 100 mls/ hr Q1H IV Last administered on 07/30/16 21:21; Start 07/30/16 at 18:00; Stop 07/30/16 at 19:59; Status DC Potassium Chloride (KCl) 60 meq ONCE ONCE PO Last administered on 07/30/16 18: 46; Start 07/30/16 at 17:15; Stop 07/30/16 at 17:16; Status DC Potassium Chloride (KCl) 40 meq ONCE ONCE PO Last administered on 08/05/16 15 :04; Start 08/05/16 at 14:30; Stop 08/05/16 at 14:31; Status DC Acetaminophen/ Hydrocodone Bitart ([place] 10-325 Mg) 1 tab Q4H PRN PO pain 6-10 Last administered on 08/07/16 09:45; Start 08/05/16 at 16:15; Stop 08/07/16 at 14:11; Status DC Morphine Sulfate (Morphine Inj) 2 mg Q3H PRN IV PUSH breakthrough pain; Start 08/05/16 at 16:15; Stop 08/06/16 at 15:49; Status DC Ketorolac Tromethamine (Toradol Inj) 15 mg Q6HR IV PUSH Last administered on 17:15; Start 08/06/16 at 18:00; Stop 08/09/16 at 00:01; Status DC Metoclopramide HCl (Reglan Inj) 5 mg TIDAC IV PUSH Last administered on 10:35; Start 08/07/16 at 17:00 Senna/Docusate Sodium (Leti-Colace) 2 tab BID PO Last administered on 09:52; Start 08/09/16 at 12:15; Stop 09/11/16 at 18:29; Status DC Potassium Chloride (KCl) 40 meq ONCE ONCE PO Last administered on 08/09/16 12 :54; Start 08/09/16 at 12:30; Stop 08/09/16 at 12:31; Status DC Vancomycin HCl (VANCOMYCIN for oral use only) 500 mg QID PO Last administered on 08/18/16 21:37; Start 08/12/16 at 18:00; Stop 08/19/16 at 08:47; Status DC Lisinopril (Prinivil) 10 mg DAILY PO Last administered on 09/10/16 09:27; Start 08/14/16 at 09:00 Potassium Chloride (KCl) 30 meq ONCE ONCE PO Last administered on 08/14/16 22 :24; Start 08/14/16 at 19:00; Stop 08/14/16 at 19:01; Status DC Dronabinol (Marinol) 2.5 mg ONCE ONCE PO Last administered on 08/15/16 14:15 ; Start 08/15/16 at 12:45; Stop 08/15/16 at 12:46; Status DC Dronabinol (Marinol) 5 mg BID@11,16 PO Last administered on 09/10/16 16:43; Start 08/15/16 at 16:00 Vancomycin HCl (VANCOMYCIN for oral use only) 250 mg Q12HR PO Last administered on 08/20/16 09:46; Start 08/19/16 at 09:00; Stop 08/20/16 at 16:09 ; Status DC Vancomycin HCl (VANCOMYCIN for oral use only) 250 mg Q6HR PO Last administered on 08/20/16 17:04; Start 08/20/16 at 18:00; Stop 08/20/16 at 19:11; Status DC Fidaxomicin (Dificid) 200 mg BID PO Last administered on 08/30/16 09:41; Start 08/20/16 at 21:00; Stop 08/30/16 at 20:59; Status DC Cholestyramine Resin 4 gm 4 gm Q8HR PO Last administered on 09/04/16 20:52; Start 08/23/16 at 14:00; Stop 09/08/16 at 10:36; Status DC Magnesium Sulfate/ Dextrose 100 ml @ 100 mls/hr Q1H IV Last administered on 12:18; Start 08/24/16 at 09:30; Stop 08/24/16 at 11:29; Status DC Potassium Chloride 100 ml @ 50 mls/hr Q2H IV Last administered on 08/24/16 12: 22; Start 08/24/16 at 09:30; Stop 08/24/16 at 13:29; Status DC Potassium Chloride 100 ml @ 50 mls/hr ONCE ONCE IV Last administered on 22:23; Start 08/24/16 at 19:00; Stop 08/24/16 at 20:59; Status DC Potassium Chloride 100 ml @ 50 mls/hr Q2H IV Last administered on 08/25/16 12: 53; Start 08/25/16 at 09:15; Stop 08/25/16 at 13:14; Status DC Potassium Chloride 100 ml @ 100 mls/hr Q1H IV Last administered on 08/26/16 16 :48; Start 08/26/16 at 13:00; Stop 08/26/16 at 16:06; Status DC Sodium Chloride 500 ml @ 500 mls/hr BOLUS ONCE IV Last administered on 01:34; Start 08/29/16 at 01:30; Stop 08/29/16 at 02:29; Status DC Potassium Chloride/Sodium Chloride (NS + KCl 20 Meq Inj) 1,000 ml @ 70 mls/hr [id number] IV Last administered on 08/30/16 11:47; Start 08/30/16 at 10:00; Stop at 00:17; Status DC Polyethylene Glycol/ Electrolytes (Colyte Liq) 4,000 ml ONCE ONCE PO Last administered on 08/31/16 18:54; Start 08/31/16 at 18:15; Stop 08/31/16 at 18:16 ; Status DC Magnesium Citrate (Citroma Liq) 600 ml NOW ONCE PO Last administered on 05:48; Start 09/01/16 at 05:45; Stop 09/01/16 at 05:46; Status DC Sodium Biphosphate/ Sodium Phosphate 266 ml 266 ml ONCE ONCE RECTAL Last administered on 09/01/16 08:48; Start 09/01/16 at 08:00; Stop 09/01/16 at 08:01 ; Status DC Lactated Ringer's 1,000 ml @ 30 mls/hr Q24H PRN IV SEE LABEL COMMENTS; Start at 08:45; Stop 09/01/16 at 12:08; Status DC Sodium Chloride (NS 500 ml Inj) 500 ml @ 30 mls/hr [id number] PRN IV SEE LABEL COMMENTS; Start 09/01/16 at 08:45; Stop 09/01/16 at 12:08; Status DC Metoprolol Tartrate (Lopressor) 25 mg CIRCULATION WORKER PRN PO SEE LABEL COMMENTS; Start 09/01/16 at 08:45; Stop 09/04/16 at 08:44; Status DC Povidone Iodine (Betadine 5% Antisepsis Kit) 1 applic [employer]CULATION WORKER PRN EACH NARE SEE LABEL COMMENTS; Start 09/01/16 at 08:45; Stop 09/04/16 at 08:44; Status DC Chlorhexidine Gluconate (Chlorhexidine 2% Cloth) 3 pack [employer]CULATION WORKER PRN TOPICAL SEE LABEL COMMENTS; Start 09/01/16 at 08:45; Stop 09/04/16 at 08:44; Status DC Insulin Human Regular (NovoLIN R INJ) See Protocol Table ... [employer]ATION WORKER PRN SQ SEE PROTOCOL TABLE; Start 09/01/16 at 08:45; Stop 09/04/16 at 08:44; Status DC Pantoprazole Sodium 40 mg 40 mg DAILY PO Last administered on 09/07/16 09:55; Start 09/01/16 at 12:00; Stop 09/08/16 at 10:36; Status DC Sodium Chloride 500 ml @ 500 mls/hr BOLUS ONCE IV Last administered on 12:00; Start 09/01/16 at 12:00; Stop 09/01/16 at 12:59; Status DC Potassium Chloride/Sodium Chloride (NS + KCl 20 Meq Inj) 1,000 ml @ 84 mls/hr [id number] IV Last administered on 09/02/16 22:07; Start 09/01/16 at 12:00; Stop 09/03/16 at 21:17; Status DC Miscellaneous Information ALL NURSING DEPARTME... UNSCH PRN .XX SEE LABEL COMMENTS; Start 09/01/16 at 13:00; Stop 09/02/16 at 12:59; Status DC Propofol (Diprivan 200 Mg/20 ml Inj) 160 mg STK-MED ONCE IV ; Start 09/01/16 at 10:57; Stop 09/01/16 at 13:10; Status DC Pantoprazole Sodium (Protonix) 40 mg BID PO Last administered on 09/10/16 20: 43; Start 09/08/16 at 21:00 Sucralfate (Carafate Liq) 1 gm ACHS PO Last administered on 09/09/16 23:19; Start 09/08/16 at 11:00 Magnesium Citrate (Citroma Liq) 300 ml ONCE ONCE PO Last administered on 13:16; Start 09/08/16 at 12:00; Stop 09/08/16 at 12:40; Status DC Magnesium Citrate (Citroma Liq) 300 ml ONCE ONCE PO Last administered on 17:48; Start 09/08/16 at 18:00; Stop 09/08/16 at 18:01; Status DC Bisacodyl (Dulcolax Ec) 10 mg DAILY@18,21 PO Last administered on 09/08/16 22: 33; Start 09/08/16 at 18:00; Stop 09/08/16 at 21:01; Status DC Diatrizoate Meglum/ Diatrizoate Sod ( Gastroview Liq) 18 ml ONCE ONCE PO ; Start 09/08/16 at 18:24; Stop 09/08/16 at 19:12; Status DC Scopolamine (Transderm-Scop 1.5 Mg Patch.72 Hr) 1 patch Q3D T-DERMAL Last administered on 09/11/16 17:56; Start 09/11/16 at 18:00 Miscellaneous Information 1 1 Q3D T-DERMAL ; Start 09/14/16 at 18:00 Sodium Chloride 500 ml @ 50 mls/hr Q10H IV Last administered on 09/11/16 18: 47; Start 09/11/16 at 18:15; Stop 09/12/16 at 04:14; Status DC Potassium Chloride 100 ml @ 100 mls/hr Q1H IV Last administered on 09/12/16 15:00; Start 09/12/16 at 13:00; Stop 09/12/16 at 15:59; Status DC Potassium Chloride/Dextrose/ Sod Cl (D5-1/2 NS + KCl 20 Meq Inj) 1,000 ml @ 84 mls/hr [id number] IV Last administered on 09/12/16t 13:35; Start 09/12/16 at 12:15 Potassium Chloride 30 meq 30 meq ONCE ONCE PO ; Start 09/13/16 at 09:15; Stop 09/13/16 at 10:45; Status DC Potassium Chloride (KCl 10 Meq Premix Inj) 100 ml @ 100 mls/hr BOLUS ONCE IV ; Start 09/13/16 at 10:45; Stop 09/13/16 at 11:44; Status DC A/P Problem List: (1) Total self-care deficit ICD Code: R41.89 Status: Acute (2) Sacral pressure ulcer ICD Code: L89.159 Status: Chronic (3) Subclinical hypothyroidism ICD Code: E03.9 Status: Acute (4) Radiculopathy of lumbar region ICD Code: M54.16 Status: Acute Assessment and Plan Mrs. Arreola is a 70-year-old female with a known history of hypertension, obesity , arthritis, status post gastric bypass who presented to the ED on 06/23/16 with complaints of generalized weakness for two weeks. Apparently patient had been discharged on 06/08/16 with home health care and sustained a fall at home with progressive weakness. Supposedly she is wheelchair bound at home and unable to transfer independently. Poor appetite secondary to nausea and vomiting: Encourage PO intake as tolerated. Zofran IV PRN. Continue IV Reglan. Continue Marinol for appetite stimulant. Dietitian consulted for calorie count, may need to consider PEG tube for supplemental feeding. Full liquids per GI. Scopolamine patch added yesterday. BMP with signs of hemoconcentration/dehydration. On D5. Consult palliative care. Continue management per GI. Hypokalemia: Potassium 3.0. Not tolerating oral intake. We'll give another dose of IV potassium. Unable to tolerate by mouth intake. Epigastric pain likely secondary to ulcer: Continue Protonix. Sacral pressure ulcer, resolved: Encourage repositioning patient every 2 hours. Specialty mattress continued. C. difficile diarrhea: Diarrhea is currently improved. Last BM 09/05. Last Tox PCR positive on 3/29. Has previously been treated with Flagyl, oral vancomycin. ID previously consulted on 08/20 with recommendations to discontinue Vanco and begin Dificid, completed course of Dificid. Generalized weakness: Continue physical therapy. Will need nursing facility at discharge, case management following. Lumbar radiculopathy: Neurosurgery signed off, no surgical intervention recommended at this time. Control pain [place] PRN per pain scale. Anemia, GI bleed: Stool Hemoccult is positive on 08/30. Status post EGD, which showed esophageal ulcer. S/p transfusion 2 units on 09/02. Hb stable. Other chronic medical history includes osteoarthritis, CKD stage III are stable at this time. DVT prophylaxis: SCDs/TEDs. Discharge Planning Patient continues to be symptomatic and unable to tolerate any by mouth intake. She will require continual hospitalization pending further recommendation from GI. Problem Qualifiers (1) Sacral pressure ulcer: Qualified Code: L89.151 - Decubitus ulcer of sacral region, stage 1 Paola Carballo MD Sep 13, 2016 12:30
[2016-09-13 16:46] LABS: POTASSIUM 3.9 MEQ/L (3.5-5.1)
--- NOTE | 2016-09-13 17:09 | HHI.GIFU ---
Subjective Remarks Pt refusing to eat due to nausea No vomiting Last BM was yesterday No reported melena or BRBPR (Rut Santillan) Objective Vitals I&O Vital Signs Date Time Temp Pulse Resp B/P Pulse Ox O2 Delivery O2 Flow Rate FiO2 09/13/16 16:31 98.4 81 18 115/74 98 09/13/16 12:07 96.7 71 18 117/66 95 09/13/16 08:36 97.1 85 17 118/70 98 09/13/16 04:00 95.7 75 18 129/59 98 09/13/16 00:00 97.3 72 18 124/69 95 09/12/16 23:25 88 09/12/16 20:00 97.6 78 18 127/68 95 09/12/16 19:00 75 I/O 09/12/16 09/12/16 09/12/16 09/13/16 09/13/16 09/13/16 07:00 15:00 23:00 07:00 15:00 23:00 Intake Total 120 ml 240 ml 120 ml Balance 120 ml 240 ml 120 ml Intake Oral 120 ml 240 ml 120 ml # Voids 2 1 2 1 # Bowel Movements 0 Laboratory Laboratory Tests Test 09/12/16 10:58 White Blood Count 8.0 TH/MM3 Red Blood Count 3.43 MIL/MM3 Hemoglobin 8.7 GM/DL Hematocrit 26.4 % Mean Corpuscular Volume 77.1 FL Mean Corpuscular Hemoglobin 25.4 PG Mean Corpuscular Hemoglobin 32.9 % Concent Red Cell Distribution Width 20.3 % Platelet Count 229 TH/MM3 Mean Platelet Volume 9.4 FL Neutrophils (%) (Auto) 62.9 % Lymphocytes (%) (Auto) 24.2 % Monocytes (%) (Auto) 6.0 % Eosinophils (%) (Auto) 5.9 % Basophils (%) (Auto) 1.0 % Neutrophils # (Auto) 5.0 TH/MM3 Lymphocytes # (Auto) 1.9 TH/MM3 Monocytes # (Auto) 0.5 TH/MM3 Eosinophils # (Auto) 0.5 TH/MM3 Basophils # (Auto) 0.1 TH/MM3 CBC Comment AUTO DIFF Differential Comment AUTO DIFF CONFIRMED Platelet Estimate NORMAL Platelet Morphology Comment ENLARGED Target Cells 1+ Acanthocytes OCC Sodium Level 147 MEQ/L Potassium Level 3.0 MEQ/L Chloride Level 112 MEQ/L Carbon Dioxide Level 25.6 MEQ/L Anion Gap 9 MEQ/L Blood Urea Nitrogen 22 MG/DL Creatinine 1.08 MG/DL Estimat Glomerular Filtration 50 ML/MIN Rate Random Glucose 75 MG/DL Calcium Level 8.2 MG/DL Magnesium Level 2.0 MG/DL Imaging Last Impressions Abdomen/Pelvis CT 09/08/16 0000 Signed Impressions: Service Date/Time: Thursday, September 08, 2016 21:55 - CONCLUSION: 1. No acute findings within the abdomen and pelvis. Colonic diverticulosis without diverticulitis. Previous gastric bypass surgery. 2. Small left-sided pleural effusion with mild basilar atelectasis. 3. Atrophic left kidney. Dillon Romero MD Hip MRI 07/05/16 0000 Signed Impressions: Service Date/Time: Tuesday, July 05, 2016 10:51 - CONCLUSION: 1. There is osteopenia primary degenerative changes at both hips, left greater than right. 2. Prominent osteophyte along the inferior articulating surface of the proximal left femur. 3. Nonspecific edema in the gluteus and hamstring muscles. 4. No acute bony fracture. Javier Fismhan MD Lower Extremity Ultrasound 06/29/16 0000 Signed Impressions: Service Date/Time: Wednesday, June 29, 2016 10:07 - CONCLUSION: Negative for deep venous thrombosis. Alfredo Sanders MD FACR Cervical Spine MRI 06/27/16 0000 Signed Impressions: Service Date/Time: Monday, June 27, 2016 11:09 - CONCLUSION: Mild degenerative changes otherwise unremarkable cervical spine. Anselmo Leavitt MD Thoracic Spine MRI 06/25/16 0000 Signed Impressions: Service Date/Time: June 19:36 - CONCLUSION: 1. No fracture or subluxation of the thoracic spine. 2. Mild and fairly diffuse degenerative changes as above. 3. Mild left foraminal encroachment at T8/T9 and T9/T10. 4. No significant spinal stenosis at any level. 5. Incidentally seen tiny right and small left pleural effusions, nonspecific. Jeevan Arreola MD Lumbar Spine MRI 06/25/16 0000 Signed Impressions: Service Date/Time: June 19:36 - CONCLUSION: 1. Multilevel lumbar degenerative changes as detailed above. 2. Mild spinal stenosis at L3/L4 without evidence of transiting nerve root impingement. 3. Mild to moderate spinal stenosis at L4/L5 and possibly with mild mass effect/impingement on the transiting left L5 nerve root within the subarticular recess. 4. Mild bilateral foraminal encroachment L3/L4 and L4/L5. Mild to moderate bilateral foraminal encroachment at L5/S1. 5. No fracture or subluxation of the lumbar spine. Jeevan Arreola MD Hip and Pelvis X-Ray 06/25/16 0000 Signed Impressions: Service Date/Time: June 20:27 - CONCLUSION: Moderate to severe left hip' right is with considerable osteophytosis and an apparent large inferior joint body. No fracture or subluxation. Jeevan Arreola MD Chest X-Ray 06/23/16 1402 Signed Impressions: Service Date/Time: Thursday, June 23, 2016 14:13 - CONCLUSION: Normal examination. Elías Moreno MD Physical Exam HEENT: Normocephalic; atraumatic; no jaundice. CHEST: CTA, diminished CARDIAC: RRR ABDOMEN: Soft, nondistended, mild RUQ/LUQ/epigastric tenderness no hepatosplenomegaly; bowel sounds are present. EXTREMITIES: Generalized edema. GLOBAL MOBILITY SPECIALIST: Awake and oriented times three. (Rut Santillan E PATRICK) Assessment and Plan Plan ASSESSMENT: - Persistent N/V, ?gastroparesis. Of note, patient is s/p gastric bypass 5 years ago. She was evaluated with EGD/Colonoscopy (09/01/16)---> esophageal ulcer and anatomy C/W gastric bypass, colonoscopy showed diverticulosis, no sign of colitis. Pathology acute esophagitis, no fungal organisms are present. Abdomen/Pelvis CT (09/08/16)-----> 1. No acute findings within the abdomen and pelvis. Colonic diverticulosis without diverticulitis. Previous gastric bypass surgery. 2. Small left-sided pleural effusion with mild basilar atelectasis. 3. Atrophic left kidney. Still having persistent nausea- no vomiting. Pt has been refusing the Protonix, Carafate and Marinol. Pt is on Scopolamine and Reglan. - Decreased appetite, refusing Marinol. States she cannot eat because of nausea. - Elevated LFTs. Stable. Will monitor. - Esophageal ulcer. Refusing PPI - Anemia, Hemoccult positive stool. S/P 2 units PRBC, HH has remained stable since. EGD/Colonoscopy as above. - CDiff colitis, s/p oral vanco, dificid. Colonoscopy without any signs of colitis. States diarrhea improved. Reports 3 loose stools. Repeat CDiff stool ordered on 09/10 but nothing has resulted. PLAN: - Full liquids, pt has been refusing due to nausea. - Cont. Scopolamine and Reglan - Pt has been refusing po Protonix, Carafate and Marinol - Change Protonix to IV as she had previously noted ulcer and is refusing most of her PO meds - Monitor labs - Rpt. Stool CDiff still has not resulted. - Supportive care - Further recommendations as the case develops - Pt seen and examined by Dr. Walker and myself and this note is written on her behalf (Rut Santillan) Physician Comments seen, examined agree with above trial of Phenergan prn consult claims service adjustor for possible tpn/ppn (Sun Walker MD) Rut Santillan Sep 13, 2016 17:09 uSn Walker MD Sep 13, 2016 17:57
[2016-09-13] MEDS: PANTOPRAZOLE SODIUM 40 MG VIAL IV PUSH SCH (17:38)
[2016-09-13] MEDS ORDERED: PROMETHAZINE HCL 25 MG TAB PO PRN (18:00)
[2016-09-13 19:35] LABS: INDIRECT BILIRUBIN 0.4 MG/DL (0.0-0.8)
[2016-09-13] MEDS: CETIRIZINE HCL 10 MG TAB PO SCH (20:53)
[2016-09-13] MEDS: SERTRALINE HCL 100 MG TAB PO SCH (20:53)
[2016-09-13] MEDS: ONDANSETRON HCL 4 MG/2 ML VIAL IV PUSH PRN (21:27)
[2016-09-14] VITALS: BP 142/56; PULSE 98; RESP 20; TEMP 97.4; O2SAT 93
[2016-09-14 04:00] VITALS: BP 111/65; PULSE 78; RESP 18; TEMP 98.7; O2SAT 96
[2016-09-14] MEDS: PANTOPRAZOLE SODIUM 40 MG VIAL IV PUSH SCH ×2 (05:58→17:08)
[2016-09-14] MEDS: SUCRALFATE 1 GM/10 ML CUP PO SCH ×4 (06:00→20:46)
[2016-09-14 08:26] VITALS: BP 126/61; PULSE 78; RESP 20; TEMP 97.1; O2SAT 99
[2016-09-14] MEDS: SODIUM CHLORIDE 0.9% FLUSH 5 ML FLUSH FLUSH SCH ×2 (09:00→20:56)
[2016-09-14] MEDS: LISINOPRIL 10 MG TAB PO SCH (09:00)
[2016-09-14] MEDS: ASPIRIN EC 81 MG TABEC PO SCH (09:00)
[2016-09-14] MEDS: CALAMINE/PRAMOXINE LOTION 180 ML BTL TOPICAL SCH ×2 (09:00→20:55)
[2016-09-14] MEDS: LACTOBACILLUS ACIDOPHILUS TAB PO SCH ×2 (09:00→20:55)
[2016-09-14] MEDS: MUPIROCIN 2% CREAM 15 GM TOPICAL SCH ×2 (09:00→20:55)
--- NOTE | 2016-09-14 10:03 | HHI.PR ---
Subjective Remarks f/u for nausea. patient stated she feels the same still have nausea. denied any emesis or abdominal pain. patient stated she was walking prior to hospitalization and wants to go home with her . Objective Vitals Vital Signs Date Time Temp Pulse Resp B/P Pulse Ox O2 Delivery O2 Flow Rate FiO2 09/14/16 08:26 97.1 78 20 126/61 99 09/14/16 04:00 98.7 78 18 111/65 96 09/14/16 00:00 97.4 98 20 142/56 93 09/13/16 20:00 96.9 79 20 112/60 94 09/13/16 19:00 76 09/13/16 16:31 98.4 81 18 115/74 98 09/13/16 12:07 96.7 71 18 117/66 95 I/O 09/13/16 09/13/16 09/13/16 09/14/16 09/14/16 09/14/16 07:00 15:00 23:00 07:00 15:00 23:00 Intake Total 240 ml 120 ml Balance 240 ml 120 ml Intake Oral 240 ml 120 ml # Voids 2 1 2 Result Diagram: 09/12/16 1058 09/13/16 1546 Objective Remarks Gen morbidly obese CV RRR. no r/m/g Ext 5/5 LE strength Procedures none Medications and IVs Current Medications IV Flush 2 ml 2 ml UNSCH PRN IVF FLUSH AFTER USING IV ACCESS; Start 06/23/16 at 14:15; Stop 06/23/16 at 20:00; Status DC Sodium Chloride 1,000 ml @ 1,000 mls/hr Q1H ONCE IV Last administered on 15:37; Start 06/23/16 at 14:02; Stop 06/23/16 at 15:01; Status DC Ceftriaxone Sodium/Sodium Chloride (Rocephin Inj/NS Inj) 100 ml @ 200 mls/hr ONCE ONCE IV Last administered on 06/23/16 18:25; Start 06/23/16 at 18:00; Stop 06/23/16 at 18:29; Status DC IV Flush (NS Flush) 2 ml UNSCH PRN FLUSH FLUSH AFTER USING IV ACCESS Last administered on 07/25/16 18:44; Start 06/23/16 at 20:00 IV Flush (NS Flush) 2 ml BID FLUSH Last administered on 09/14/16 09:00; Start 06/23/16 at 21:00 Enoxaparin Sodium (Lovenox Inj) 40 mg Q24H SQ Last administered on 08/31/16 09 :20; Start 06/24/16 at 09:00; Status Hold Naloxone HCl 0.4 mg 0.4 mg UNSCH PRN IV SEE LABEL COMMENTS; Start 06/23/16 at 20:00 Levofloxacin/ Dextrose (Levaquin 750 Mg Premix Inj) 150 ml @ 100 mls/hr Q24H IV Last administered on 06/23/16 22:06; Start 06/23/16 at 21:00; Stop 06/24/16 at 09:56; Status DC Acetaminophen/ Hydrocodone Bitart ([place] 5-325 Mg) 1 tab Q6H PRN PO pain >5 Last administered on 06/23/16 22:31; Start 06/23/16 at 22:30; Stop 06/24/16 at 09:59; Status DC Nitrofurantoin Macrocrystals (Macrobid) 100 mg BIDPC PO Last administered on 10:28; Start 06/24/16 at 18:00; Stop 06/25/16 at 13:15; Status DC Amlodipine Besylate (Norvasc) 10 mg DAILY PO Last administered on 09/10/16 09: 27; Start 06/24/16 at 10:00 Aspirin (Ecotrin Ec) 81 mg DAILY PO Last administered on 09/10/16 09:27; Start 06/25/16 at 09:00 Famotidine (Pepcid) 20 mg BID PO Last administered on 07/09/16 09:23; Start at 21:00; Stop 07/09/16 at 15:35; Status DC Furosemide (Lasix) 20 mg DAILY PO Last administered on 09/10/16 09:28; Start 06/25/16 at 09:00; Status Hold Lisinopril (Prinivil) 20 mg DAILY PO Last administered on 08/13/16 09:45; Start 06/24/16 at 10:00; Stop 08/13/16 at 19:10; Status DC Meloxicam (Mobic) 7.5 mg BID PO Last administered on 07/08/16 10:10; Start 06/24/16 at 21:00; Stop 07/08/16 at 17:43; Status DC Potassium Chloride (KCl) 10 meq DAILY PO Last administered on 07/09/16 09:23; Start 06/25/16 at 09:00; Stop 07/09/16 at 14:35; Status DC Sertraline HCl (Zoloft) 200 mg HS PO Last administered on 09/10/16 20:42; Start 06/24/16 at 21:00 Diphenhydramine HCl (Benadryl) 25 mg Q6H PRN PO itching Last administered on 11:45; Start 06/25/16 at 18:00; Stop 06/30/16 at 14:15; Status DC Acetaminophen (Tylenol) 650 mg Q6H PRN PO PAIN SCALE 1 TO 2; Start 06/26/16 at 16:15 Acetaminophen/ Hydrocodone Bitart ([place] 5-325 Mg) 1 tab Q4H PRN PO PAIN SCALE 3 TO 10 Last administered on 09/12/16 18:16; Start 06/26/16 at 16:15 Acetaminophen/ Hydrocodone Bitart ([place] 7.5-325 Mg) 1 tab Q4H PRN PO PAIN SCALE 6 TO 10 Last administered on 08/05/16 15:19; Start 06/26/16 at 16:15; Stop 08/05/16 at 16:07; Status DC Calamine/Pramoxine (Caladryl Lotion) 1 applic Q12HR TOPICAL Last administered on 09/12/16 09:00; Start 06/27/16 at 09:00 Trimethoprim/ Sulfamethoxazole (Bactrim 400-80 Mg) 1 tab Q12HR PO Last administered on 07/08/16 10:12; Start 06/28/16 at 12:00; Stop 07/08/16 at 11:59 ; Status DC Cephalexin Monohydrate (Keflex) 250 mg Q8HR PO Last administered on 07/08/16 05:31; Start 06/28/16 at 14:00; Stop 07/08/16 at 13:59; Status DC Cetirizine HCl (ZyrTEC) 10 mg HS PO Last administered on 09/10/16 20:42; Start 06/29/16 at 21:00 Prednisone (Deltasone) 40 mg DAILY PO Last administered on 07/02/16 10:56; Start 06/29/16 at 10:00; Stop 07/02/16 at 09:59; Status DC Hydroxyzine HCl (Atarax) 10 mg Q6H PRN PO itching/anxiety Last administered on 07/02/16 11:03; Start 06/30/16 at 14:15; Stop 07/02/16 at 12:08; Status DC Hydroxyzine HCl (Atarax) 25 mg Q6H PRN PO ITCHING/ANXIETY Last administered on 07/08/16 17:16; Start 07/02/16 at 12:15; Stop 07/08/16 at 17:43; Status DC Metronidazole (Flagyl) 500 mg Q8HR PO Last administered on 07/17/16 21:05; Start 07/04/16 at 02:58; Stop 07/18/16 at 02:57; Status DC Lactobacillus Acidophilus (Lactinex) 1 tab Q12HR PO Last administered on 20:48; Start 07/04/16 at 21:00 Naloxone HCl (Narcan Inj) 0.4 mg UNSCH X1 PRN IV PUSH RESP DEPRESSION OR HYPOTENSION; Start 07/07/16 at 08:00; Stop 07/09/16 at 07:59; Status DC Ondansetron HCl (Zofran Inj) 4 mg Q6H PRN IV PUSH nausea Last administered on 21:27; Start 07/07/16 at 13:45 Nystatin (Mycostatin Cream) 1 applic Q12HR TOPICAL Last administered on 10:54; Start 07/07/16 at 15:00; Stop 07/13/16 at 13:48; Status DC Hydroxyzine HCl (Atarax) 50 mg Q6H PRN PO ITCHING/ANXIETY Last administered on 09/12/16 18:17; Start 07/08/16 at 18:15 Famotidine (Pepcid) 10 mg BID PO Last administered on 07/23/16 08:56; Start at 21:00; Stop 09/08/16 at 10:36; Status DC Miscellaneous (Pill Splitter) 1 ea UNSCH PRN OTHER SEE LABEL COMMENTS Last administered on 07/11/16 08:23; Start 07/09/16 at 15:45 Potassium Chloride (KCl) 10 meq ONCE ONCE PO Last administered on 07/10/16 17 :52; Start 07/10/16 at 17:30; Stop 07/10/16 at 17:31; Status DC Potassium Chloride (KCl) 10 meq ONCE ONCE PO Last administered on 07/11/16 11 :38; Start 07/11/16 at 11:30; Stop 07/11/16 at 11:31; Status DC Potassium Chloride (KCl) 20 meq ONCE ONCE PO Last administered on 07/13/16 11 :46; Start 07/13/16 at 12:00; Stop 07/13/16 at 12:01; Status DC Nystatin (Mycostatin Cream) 1 applic Q6HR TOPICAL Last administered on 23:11; Start 07/13/16 at 13:30; Stop 08/04/16 at 10:02; Status DC Mupirocin (Bactroban 2% Cream) 1 applic Q12HR TOPICAL Last administered on 09/12 09:00; Start 07/13/16 at 13:30 Nystatin (Mycostatin Liq) 5 ml QID SWISH-SWAL Last administered on 07/27/16 10 :16; Start 07/14/16 at 18:00; Stop 07/28/16 at 17:59; Status DC Promethazine HCl (Phenergan Inj) 25 mg ONCE ONCE IM Last administered on 21:30; Start 07/25/16 at 21:30; Stop 07/25/16 at 21:31; Status DC Metronidazole (Flagyl) 500 mg Q8HR PO ; Start 07/26/16 at 16:15; Stop 07/26/16 at 16:24; Status DC Vancomycin HCl (VANCOMYCIN for oral use only) 250 mg QID PO Last administered on 08/12/16 12:32; Start 07/26/16 at 18:00; Stop 08/12/16 at 14:30; Status DC Metoclopramide HCl 10 mg 10 mg ACHS PRN PO NAUSEA OR VOMITING Last administered on 07/31/16 22:02; Start 07/26/16 at 16:30; Stop 08/07/16 at 14:14 ; Status DC Magnesium Sulfate/ Dextrose (Magnesium Sulfate 1 Gm Premix) 100 ml @ 100 mls/ hr Q1H IV Last administered on 07/30/16 21:21; Start 07/30/16 at 18:00; Stop 07/30/16 at 19:59; Status DC Potassium Chloride (KCl) 60 meq ONCE ONCE PO Last administered on 07/30/16 18: 46; Start 07/30/16 at 17:15; Stop 07/30/16 at 17:16; Status DC Potassium Chloride (KCl) 40 meq ONCE ONCE PO Last administered on 08/05/16 15 :04; Start 08/05/16 at 14:30; Stop 08/05/16 at 14:31; Status DC Acetaminophen/ Hydrocodone Bitart ([place] 10-325 Mg) 1 tab Q4H PRN PO pain 6-10 Last administered on 08/07/16 09:45; Start 08/05/16 at 16:15; Stop 08/07/16 at 14:11; Status DC Morphine Sulfate (Morphine Inj) 2 mg Q3H PRN IV PUSH breakthrough pain; Start 08/05/16 at 16:15; Stop 08/06/16 at 15:49; Status DC Ketorolac Tromethamine (Toradol Inj) 15 mg Q6HR IV PUSH Last administered on 17:15; Start 08/06/16 at 18:00; Stop 08/09/16 at 00:01; Status DC Metoclopramide HCl (Reglan Inj) 5 mg TIDAC IV PUSH Last administered on 15:16; Start 08/07/16 at 17:00; Stop 09/13/16 at 17:59; Status DC Senna/Docusate Sodium (Leti-Colace) 2 tab BID PO Last administered on 09:52; Start 08/09/16 at 12:15; Stop 09/11/16 at 18:29; Status DC Potassium Chloride (KCl) 40 meq ONCE ONCE PO Last administered on 08/09/16 12 :54; Start 08/09/16 at 12:30; Stop 08/09/16 at 12:31; Status DC Vancomycin HCl (VANCOMYCIN for oral use only) 500 mg QID PO Last administered on 08/18/16 21:37; Start 08/12/16 at 18:00; Stop 08/19/16 at 08:47; Status DC Lisinopril (Prinivil) 10 mg DAILY PO Last administered on 09/10/16 09:27; Start 08/14/16 at 09:00 Potassium Chloride (KCl) 30 meq ONCE ONCE PO Last administered on 08/14/16 22 :24; Start 08/14/16 at 19:00; Stop 08/14/16 at 19:01; Status DC Dronabinol (Marinol) 2.5 mg ONCE ONCE PO Last administered on 08/15/16 14:15 ; Start 08/15/16 at 12:45; Stop 08/15/16 at 12:46; Status DC Dronabinol (Marinol) 5 mg BID@11,16 PO Last administered on 09/10/16 16:43; Start 08/15/16 at 16:00 Vancomycin HCl (VANCOMYCIN for oral use only) 250 mg Q12HR PO Last administered on 08/20/16 09:46; Start 08/19/16 at 09:00; Stop 08/20/16 at 16:09 ; Status DC Vancomycin HCl (VANCOMYCIN for oral use only) 250 mg Q6HR PO Last administered on 08/20/16 17:04; Start 08/20/16 at 18:00; Stop 08/20/16 at 19:11; Status DC Fidaxomicin (Dificid) 200 mg BID PO Last administered on 08/30/16 09:41; Start 08/20/16 at 21:00; Stop 08/30/16 at 20:59; Status DC Cholestyramine Resin 4 gm 4 gm Q8HR PO Last administered on 09/04/16 20:52; Start 08/23/16 at 14:00; Stop 09/08/16 at 10:36; Status DC Magnesium Sulfate/ Dextrose 100 ml @ 100 mls/hr Q1H IV Last administered on 12:18; Start 08/24/16 at 09:30; Stop 08/24/16 at 11:29; Status DC Potassium Chloride 100 ml @ 50 mls/hr Q2H IV Last administered on 08/24/16 12: 22; Start 08/24/16 at 09:30; Stop 08/24/16 at 13:29; Status DC Potassium Chloride 100 ml @ 50 mls/hr ONCE ONCE IV Last administered on 22:23; Start 08/24/16 at 19:00; Stop 08/24/16 at 20:59; Status DC Potassium Chloride 100 ml @ 50 mls/hr Q2H IV Last administered on 08/25/16 12: 53; Start 08/25/16 at 09:15; Stop 08/25/16 at 13:14; Status DC Potassium Chloride 100 ml @ 100 mls/hr Q1H IV Last administered on 08/26/16 16 :48; Start 08/26/16 at 13:00; Stop 08/26/16 at 16:06; Status DC Sodium Chloride 500 ml @ 500 mls/hr BOLUS ONCE IV Last administered on 01:34; Start 08/29/16 at 01:30; Stop 08/29/16 at 02:29; Status DC Potassium Chloride/Sodium Chloride (NS + KCl 20 Meq Inj) 1,000 ml @ 70 mls/hr [id number] IV Last administered on 08/30/16 11:47; Start 08/30/16 at 10:00; Stop at 00:17; Status DC Polyethylene Glycol/ Electrolytes (Colyte Liq) 4,000 ml ONCE ONCE PO Last administered on 08/31/16 18:54; Start 08/31/16 at 18:15; Stop 08/31/16 at 18:16 ; Status DC Magnesium Citrate (Citroma Liq) 600 ml NOW ONCE PO Last administered on 05:48; Start 09/01/16 at 05:45; Stop 09/01/16 at 05:46; Status DC Sodium Biphosphate/ Sodium Phosphate 266 ml 266 ml ONCE ONCE RECTAL Last administered on 09/01/16 08:48; Start 09/01/16 at 08:00; Stop 09/01/16 at 08:01 ; Status DC Lactated Ringer's 1,000 ml @ 30 mls/hr Q24H PRN IV SEE LABEL COMMENTS; Start at 08:45; Stop 09/01/16 at 12:08; Status DC Sodium Chloride (NS 500 ml Inj) 500 ml @ 30 mls/hr [id number] PRN IV SEE LABEL COMMENTS; Start 09/01/16 at 08:45; Stop 09/01/16 at 12:08; Status DC Metoprolol Tartrate (Lopressor) 25 mg REST ROOM MATRON PRN PO SEE LABEL COMMENTS; Start 09/01/16 at 08:45; Stop 09/04/16 at 08:44; Status DC Povidone Iodine (Betadine 5% Antisepsis Kit) 1 applic REST ROOM MATRON PRN EACH NARE SEE LABEL COMMENTS; Start 09/01/16 at 08:45; Stop 09/04/16 at 08:44; Status DC Chlorhexidine Gluconate (Chlorhexidine 2% Cloth) 3 pack REST ROOM MATRON PRN TOPICAL SEE LABEL COMMENTS; Start 09/01/16 at 08:45; Stop 09/04/16 at 08:44; Status DC Insulin Human Regular (NovoLIN R INJ) See Protocol Table ... REST ROOM MATRON PRN SQ SEE PROTOCOL TABLE; Start 09/01/16 at 08:45; Stop 09/04/16 at 08:44; Status DC Pantoprazole Sodium 40 mg 40 mg DAILY PO Last administered on 09/07/16 09:55; Start 09/01/16 at 12:00; Stop 09/08/16 at 10:36; Status DC Sodium Chloride 500 ml @ 500 mls/hr BOLUS ONCE IV Last administered on 12:00; Start 09/01/16 at 12:00; Stop 09/01/16 at 12:59; Status DC Potassium Chloride/Sodium Chloride (NS + KCl 20 Meq Inj) 1,000 ml @ 84 mls/hr [id number] IV Last administered on 09/02/16 22:07; Start 09/01/16 at 12:00; Stop 09/03/16 at 21:17; Status DC Miscellaneous Information ALL NURSING DEPARTME... UNSCH PRN .XX SEE LABEL COMMENTS; Start 09/01/16 at 13:00; Stop 09/02/16 at 12:59; Status DC Propofol (Diprivan 200 Mg/20 ml Inj) 160 mg STK-MED ONCE IV ; Start 09/01/16 at 10:57; Stop 09/01/16 at 13:10; Status DC Pantoprazole Sodium (Protonix) 40 mg BID PO Last administered on 09/10/16 20: 43; Start 09/08/16 at 21:00; Stop 09/13/16 at 17:09; Status DC Sucralfate (Carafate Liq) 1 gm ACHS PO Last administered on 09/09/16 23:19; Start 09/08/16 at 11:00 Magnesium Citrate (Citroma Liq) 300 ml ONCE ONCE PO Last administered on 13:16; Start 09/08/16 at 12:00; Stop 09/08/16 at 12:40; Status DC Magnesium Citrate (Citroma Liq) 300 ml ONCE ONCE PO Last administered on 17:48; Start 09/08/16 at 18:00; Stop 09/08/16 at 18:01; Status DC Bisacodyl (Dulcolax Ec) 10 mg DAILY@18,21 PO Last administered on 09/08/16 22: 33; Start 09/08/16 at 18:00; Stop 09/08/16 at 21:01; Status DC Diatrizoate Meglum/ Diatrizoate Sod (Md Gastroview Liq) 18 ml ONCE ONCE PO ; Start 09/08/16 at 18:24; Stop 09/08/16 at 19:12; Status DC Scopolamine (Transderm-Scop 1.5 Mg Patch.72 Hr) 1 patch Q3D T-DERMAL Last administered on 09/11/16 17:56; Start 09/11/16 at 18:00 Miscellaneous Information 1 1 Q3D T-DERMAL ; Start 09/14/16 at 18:00 Sodium Chloride 500 ml @ 50 mls/hr Q10H IV Last administered on 09/11/16 18: 47; Start 09/11/16 at 18:15; Stop 09/12/16 at 04:14; Status DC Potassium Chloride 100 ml @ 100 mls/hr Q1H IV Last administered on 09/12/16 15:00; Start 09/12/16 at 13:00; Stop 09/12/16 at 15:59; Status DC Potassium Chloride/Dextrose/ Sod Cl (D5-1/2 NS + KCl 20 Meq Inj) 1,000 ml @ 84 mls/hr [id number] IV Last administered on 09/13/16 15:16; Start 09/12/16 at 12:15 Potassium Chloride 30 meq 30 meq ONCE ONCE PO ; Start 09/13/16 at 09:15; Stop 09/13/16 at 10:45; Status DC Potassium Chloride (KCl 10 Meq Premix Inj) 100 ml @ 100 mls/hr BOLUS ONCE IV Last administered on 09/13/16t 13:12; Start 09/13/16 at 10:45; Stop 09/13/16 at 11:44; Status DC Pantoprazole Sodium (Protonix Inj) 40 mg Q12H IV PUSH Last administered on 09/14t 05:58; Start 09/13/16 at 18:00 Promethazine HCl (Phenergan) 12.5 mg Q6H PRN PO nausea; Start 09/13/16 at 18:00 A/P Problem List: (1) Total self-care deficit ICD Code: R41.89 Status: Acute (2) Sacral pressure ulcer ICD Code: L89.159 Status: Chronic (3) Subclinical hypothyroidism ICD Code: E03.9 Status: Acute (4) Radiculopathy of lumbar region ICD Code: M54.16 Status: Acute Assessment and Plan Mrs. Arreola is a 70-year-old female with a known history of hypertension, obesity , arthritis, status post gastric bypass who presented to the ED on 06/23/16 with complaints of generalized weakness for two weeks. Apparently patient had been discharged on 06/08/16 with home health care and sustained a fall at home with progressive weakness. Supposedly she is wheelchair bound at home and unable to transfer independently. Poor appetite secondary to nausea and vomiting: Encourage PO intake as tolerated. Zofran IV PRN. Continue IV Reglan. Continue Marinol for appetite stimulant. Dietitian consulted for calorie count, may need to consider PEG tube for supplemental feeding. Full liquids per GI. Scopolamine patch added yesterday. BMP with signs of hemoconcentration/dehydration. On D5. Consult palliative care. Continue management per GI. unsure what else can be offered in hospital. she may need to go to academic facility to see if anything can be offered, but patient declined. Hypokalemia: Potassium 3.0. Not tolerating oral intake. Unable to tolerate by mouth intake. still waiting for labs that not have been drawn yet. I spoke to supervising vacuum cleaner operator in regards to this. Epigastric pain likely secondary to ulcer: Continue Protonix. Sacral pressure ulcer, resolved: Encourage repositioning patient every 2 hours. Specialty mattress continued. C. difficile diarrhea: Diarrhea is currently improved. Last BM 09/05. Last Tox PCR positive on 08/19. Has previously been treated with Flagyl, oral vancomycin. ID previously consulted on 08/20 with recommendations to discontinue Vanco and begin Dificid, completed course of Dificid. Generalized weakness: Continue physical therapy. Will need nursing facility at discharge, case management following, but patient declined. she stated she wants to go home. Lumbar radiculopathy: Neurosurgery signed off, no surgical intervention recommended at this time. Control pain [place] PRN per pain scale. Anemia, GI bleed: Stool Hemoccult is positive on 08/30. Status post EGD, which showed esophageal ulcer. S/p transfusion 2 units on 09/02. Hb stable. Other chronic medical history includes osteoarthritis, CKD stage III are stable at this time. DVT prophylaxis: SCDs/TEDs. Discharge Planning Patient symptoms seems only to be nausea. Unable to treat in hospital. She may need to go to academic facility such as [place] or [facility] but declined. patient also stated she will go home not to SNF. Problem Qualifiers (1) Sacral pressure ulcer: Qualified Code: L89.151 - Decubitus ulcer of sacral region, stage 1 Paola Carballo MD Sep 14, 2016 10:03
[2016-09-14] MEDS: ONDANSETRON HCL 4 MG/2 ML VIAL IV PUSH PRN ×2 (10:23→17:08)
[2016-09-14] MEDS: DRONABINOL 5 MG CAP PO SCH ×2 (11:00→16:00)
--- NOTE | 2016-09-14 11:26 | PD.CONS ---
Consult Service Palliative Care Consult Requested By Dwayne Bryson Primary Care Physician Milan Beckett Reason for Consultation a. To assist with evaluation and management of symptoms including: nausea, fatigue, diarrhea, pain, weakness b. To assist medical decision maker(s) with: better understanding of current medical conditions; weighing benefits/burdens of medical treatment options; making medical treatment decisions. . (Ro Li) HPI History of Present Illness 70 year old female patient admitted 06/23/16 for progressive, generalized weakness, diarrhea, inability to get out of bed and back pain. She states she had felt at her normal baseline the prior evening, but in the morning , felt "different" and had her assist her to a sitting position, but was unable to hold herself in that position and fell back onto her bed. Her normal baseline is being able to sit up in her wheelchair and watch TV with her . She had previously been seen in the ED 06/07/16 s/p fall without injury. She is morbidly obese, wheelchair bound for the last 6 months, with chronic incontinence of bowel and bladder. She was found to have a stage one decubitus of her sacral region which has since resolved. She states she wants to go back home under her 's care with home health support and states that her agrees with this plan. She is severely deconditioned and unable to bear weight long enough to transfer and SNF/rehab has been recommended and refused several times. 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 She retired in 1995. She has no Advanced Directives and is aware and agreeable that her would be the Legal Decision maker. Neurosurgery evaluated, with finding of lumbar spondylosis and degenerative disc disease, moderate L4-5 stenosis and proximal lower extremity paresis. As no neurosurgical treatment was required, NS has since signed off. Infectious disease evaluated her for C-difficile infection, which had been resistant to treatment with vancomycin and Flagyl, thus Dificid was initiated and course completed. Gastroenterology was consulted as she continued to have diarrhea with a decrease in hemoglobin, concerning for a GI bleed and hemoccult stool was positive on 08/30. and EGD/colonoscopy done showing diverticulosis in the left colon with no other abnormalities, EGD showed esophageal ulcer. She continues to complain of nausea, currently receiving scopolamine, IV reglan, IV zofran PRN , Marinol for appetite stimulant. She reports continued diarrhea. GI continues to follow. Physical Therapy has been following, but the patient has not been cooperative with attempting to progress with therapy and has occasionally refused therapy. . Function/Cognitive Trajectory Previously lived at home, cared for by her and son, bedbound since early May, wheelchair bound for 6 months prior to admission, unable to transfer independently. Refusing SNF, states she will go home. (Ro Li) Review of Systems Constitutional: COMPLAINS OF: Fatigue Cardiovascular: COMPLAINS OF: Lower Extremity Edema Gastrointestinal: COMPLAINS OF: Abdominal pain, Diarrhea, Nausea, Vomiting Musculoskeletal: COMPLAINS OF: Joint pain (Ro Li) Past Family Social History Coded Allergies: Codeine (Verified Allergy, Severe, 06/06/16) sever n/v Demerol (Verified Allergy, Severe, 06/06/16) sever n/v Macrobid (Verified Allergy, Intermediate, rash, 06/26/16) Past Medical History Arthritis Obesity HTN Anxiety Diverticulosis of left colon Lumbar spondylosis DDD CKD III Kidney stones . Past Surgical History Gastric bypass Cholecystomy C Section x2 Appendectomy Kidney Stone extraction X 2 . Reported Medications Current Medications Medications (Trade) Dose Ordered Sig/Alhaji Route Start Time Stop Time Status Last Admin (NS Flush) 2 ml UNSCH PRN FLUSH 06/23/16 20:00 07/25/16 18:44 (NS Flush) 2 ml BID FLUSH 06/23/16 21:00 09/14/16 09:00 (Lovenox Inj) 40 mg Q24H SQ 06/24/16 09:00 Hold 08/31/16 09:20 (Narcan Inj) 0.4 mg UNSCH PRN IV 06/23/16 20:00 (Norvasc) 10 mg DAILY PO 06/24/16 10:00 09/10/16 09:27 (Ecotrin Ec) 81 mg DAILY PO 06/25/16 09:00 09/10/16 09:27 (Lasix) 20 mg DAILY PO 06/25/16 09:00 Hold 09/10/16 09:28 (Zoloft) 200 mg HS PO 06/24/16 21:00 09/10/16 20:42 (Tylenol) 650 mg Q6H PRN PO 06/26/16 16:15 ([place] 5-325 Mg) 1 tab Q4H PRN PO 06/26/16 16:15 09/12/16 18:16 (Caladryl Lotion) 1 applic Q12HR TOPICAL 06/27/16 09:00 09/12/16 09:00 (ZyrTEC) 10 mg HS PO 06/29/16 21:00 09/10/16 20:42 (Lactinex) 1 tab Q12HR PO 07/04/16 21:00 09/10/16 20:48 (Zofran Inj) 4 mg Q6H PRN IV PUSH 07/07/16 13:45 09/14/16 10:23 (Atarax) 50 mg Q6H PRN PO 07/08/16 18:15 09/12/16 18:17 (Pill Splitter) 1 ea UNSCH PRN OTHER 07/09/16 15:45 07/11/16 08:23 (Bactroban 2% Cream) 1 applic Q12HR TOPICAL 07/13/16 13:30 09/12/16 09:00 (Prinivil) 10 mg DAILY PO 08/14/16 09:00 09/10/16 09:27 (Marinol) 5 mg BID@11,16 PO 08/15/16 16:00 09/10/16 16:43 (Carafate Liq) 1 gm ACHS PO 09/08/16 11:00 09/09/16 23:19 (Transderm-Scop 1.5 Mg Patch.72 Hr) 1 patch Q3D T-DERMAL 09/11/16 18:00 09/11/16 17:56 Miscellaneous Information 1 1 Q3D T-DERMAL 09/14/16 18:00 (D5-1/2 NS + KCl 20 Meq Inj) 1,000 ml @ 84 mls/hr [id number] IV 09/12/16 12:15 09/13/16 15:16 (Protonix Inj) 40 mg Q12H IV PUSH 09/13/16 18:00 09/14/16 05:58 (Phenergan) 12.5 mg Q6H PRN PO 09/13/16 18:00 . Family History Sister: DM at age 71. Dad: MS at age 67, history of smoking. Mom: MS, heart disease at age 73, history of smoking. . Substance Use Tobacco: quit smoking approximately 20 years ago having previously smoked 1-2 PPD for nearly 30 years. Alcohol: Quantifies her use as Vodka, states she buys approximately two 1/2 gallon bottles per week. Prescription med abuse: Denies Illicits: Denies . Psychosocial History , lived at home with as her caregiver. Her son lives locally and provides some support. She has one daughter, Rut Troncoso, who resides in [place], [place]. She previously attended a anglican located at the [facility] and is still in intermittent contact with the stock clerk. Friends from the anglican provide some transportation support for the , since his car accident, as he no longer has a vehicle. . Spiritual/Cultural Factors She had previously attended anglican held at the [facility] and remains in intermittent contact with stock clerk and friends there. (Ro Li) Living Will: Never completed Health Care Surrogate: Never completed Durable Power of Oversize Load Pilot Escort: Never completed (Ro Li) Physical Exam Vital Signs Date Time Temp Pulse Resp B/P Pulse Ox O2 Delivery O2 Flow Rate FiO2 09/14/16 08:26 97.1 78 20 126/61 99 09/14/16 04:00 98.7 78 18 111/65 96 09/14/16 00:00 97.4 98 20 142/56 93 09/13/16 20:00 96.9 79 20 112/60 94 09/13/16 19:00 76 09/13/16 16:31 98.4 81 18 115/74 98 09/13/16 12:07 96.7 71 18 117/66 95 09/13/16 09/14/16 19:00 07:00 Intake Total 120 ml Balance 120 ml Intake Oral 120 ml # Voids 1 2 Exam CONSTITUTIONAL/GENERAL: This is a morbidly obese patient, lying in bed.in no apparent distress. TUBES/LINES/DRAINS: Right wrist PIV, SCD's SKIN: No jaundice, rashes, or lesions. Ecchymosis seen on bilateral lower arms. No wounds seen anteriorly. Skin temperature appropriate. Not diaphoretic. HEAD: Atraumatic. Normocephalic. EYES: Pupils equal and round and reactive. Extraocular motions intact. No scleral icterus. No injection or drainage. Fundi not examined. ENT: Hearing grossly normal. Nose without bleeding or purulent drainage. Poor dentition, dry oral mucosa. NECK: Trachea midline. Supple, nontender. CARDIOVASCULAR: Regular rate and rhythm without murmurs, gallops, or rubs. No JVD. Peripheral pulses symmetric. RESPIRATORY/CHEST: Symmetric, unlabored respirations. Clear to auscultation. Breath sounds equal bilaterally. No wheezes, rales, or rhonchi. GASTROINTESTINAL: Abdomen obese, soft, non-tender, nondistended. No hepato- splenomegaly, or palpable masses. No guarding. Bowel sounds present, hypoactive. GENITOURINARY: Without palpable bladder distension. Incontinent MUSCULOSKELETAL: Extremities without clubbing, cyanosis, or edema. No joint tenderness or effusion noted. No calf tenderness. No mottling or clubbing. NEUROLOGICAL: Awake and alert. Motor and sensory grossly within normal limits. Follows commands. Cognitively sharp. Moves all extremities. PSYCHIATRIC: No obvious anxiety/depression. no apparent hallucinations or other psychotic thought process. . (Ro Li) Diagnostic Tests Laboratory Laboratory Tests Test 09/12/16 09/13/16 09/14/16 10:58 15:46 09:48 White Blood Count 8.0 TH/MM3 (4.0-11.0) Red Blood Count 3.43 MIL/MM3 (4.00-5.30) Hemoglobin 8.7 GM/DL (11.6-15.3) Hematocrit 26.4 % (35.0-46.0) Mean Corpuscular Volume 77.1 FL (80.0-100.0) Mean Corpuscular Hemoglobin 25.4 PG (27.0-34.0) Mean Corpuscular Hemoglobin 32.9 % Concent (32.0-36.0) Red Cell Distribution Width 20.3 % (11.6-17.2) Platelet Count 229 TH/MM3 (150-450) Mean Platelet Volume 9.4 FL (7.0-11.0) Neutrophils (%) (Auto) 62.9 % (16.0-70.0) Lymphocytes (%) (Auto) 24.2 % (9.0-44.0) Monocytes (%) (Auto) 6.0 % (0.0-8.0) Eosinophils (%) (Auto) 5.9 % (0.0-4.0) Basophils (%) (Auto) 1.0 % (0.0-2.0) Neutrophils # (Auto) 5.0 TH/MM3 (1.8-7.7) Lymphocytes # (Auto) 1.9 TH/MM3 (1.0-4.8) Monocytes # (Auto) 0.5 TH/MM3 (0-0.9) Eosinophils # (Auto) 0.5 TH/MM3 (0-0.4) Basophils # (Auto) 0.1 TH/MM3 (0-0.2) CBC Comment AUTO DIFF Differential Comment AUTO DIFF CONFIRMED Platelet Estimate NORMAL (NORMAL) Platelet Morphology Comment ENLARGED (NORMAL) Target Cells 1+ (NORMAL) Acanthocytes OCC (NORMAL) Sodium Level 147 MEQ/L 145 MEQ/L (136-145) (136-145) Potassium Level 3.0 MEQ/L 3.9 MEQ/L 4.0 MEQ/L (3.5-5.1) (3.5-5.1) (3.5-5.1) Chloride Level 112 MEQ/L 115 MEQ/L (98-107) (98-107) Carbon Dioxide Level 25.6 MEQ/L 22.0 MEQ/L (21.0-32.0) (21.0-32.0) Anion Gap 9 MEQ/L (5-15) 8 MEQ/L (5-15) Blood Urea Nitrogen 22 MG/DL (7-18) 22 MG/DL (7-18) Creatinine 1.08 MG/DL 1.04 MG/DL (0.50-1.00) (0.50-1.00) Estimat Glomerular Filtration 50 ML/MIN (>89) 52 ML/MIN (>89) Rate Random Glucose 75 MG/DL 91 MG/DL (74-106) (74-106) Calcium Level 8.2 MG/DL 8.4 MG/DL (8.5-10.1) (8.5-10.1) Magnesium Level 2.0 MG/DL 2.0 MG/DL (1.5-2.5) (1.5-2.5) Total Bilirubin 1.0 MG/DL (0.2-1.0) Direct Bilirubin 0.6 MG/DL (0.0-0.2) Indirect Bilirubin 0.4 MG/DL (0.0-0.8) Aspartate Amino Transf 113 U/L (15-37) (AST/SGOT) Alanine Aminotransferase 27 U/L (10-53) (ALT/SGPT) Alkaline Phosphatase 171 U/L (45-117) Total Protein 4.8 GM/DL (6.4-8.2) Albumin 1.6 GM/DL (3.4-5.0) Lipase 168 U/L (73-393) (Ro Li) Result Diagram: 09/12/16 1058 09/14/16 0948 Imaging Last Impressions Abdomen/Pelvis CT 09/08/16 0000 Signed Impressions: Service Date/Time: Thursday, September 08, 2016 21:55 - CONCLUSION: 1. No acute findings within the abdomen and pelvis. Colonic diverticulosis without diverticulitis. Previous gastric bypass surgery. 2. Small left-sided pleural effusion with mild basilar atelectasis. 3. Atrophic left kidney. Dillon Romero MD Hip MRI 07/05/16 0000 Signed Impressions: Service Date/Time: Tuesday, July 05, 2016 10:51 - CONCLUSION: 1. There is osteopenia primary degenerative changes at both hips, left greater than right. 2. Prominent osteophyte along the inferior articulating surface of the proximal left femur. 3. Nonspecific edema in the gluteus and hamstring muscles. 4. No acute bony fracture. Javier Fishman MD Lower Extremity Ultrasound 06/29/16 0000 Signed Impressions: Service Date/Time: Wednesday, June 29, 2016 10:07 - CONCLUSION: Negative for deep venous thrombosis. Alfredo Sanders MD FACR Cervical Spine MRI 06/27/16 0000 Signed Impressions: Service Date/Time: Monday, June 27, 2016 11:09 - CONCLUSION: Mild degenerative changes otherwise unremarkable cervical spine. Anselmo Leavitt MD Thoracic Spine MRI 06/25/16 0000 Signed Impressions: Service Date/Time: June 19:36 - CONCLUSION: 1. No fracture or subluxation of the thoracic spine. 2. Mild and fairly diffuse degenerative changes as above. 3. Mild left foraminal encroachment at T8/T9 and T9/T10. 4. No significant spinal stenosis at any level. 5. Incidentally seen tiny right and small left pleural effusions, nonspecific. Jeevan Arreola MD Lumbar Spine MRI 06/25/16 0000 Signed Impressions: Service Date/Time: June 19:36 - CONCLUSION: 1. Multilevel lumbar degenerative changes as detailed above. 2. Mild spinal stenosis at L3/L4 without evidence of transiting nerve root impingement. 3. Mild to moderate spinal stenosis at L4/L5 and possibly with mild mass effect/impingement on the transiting left L5 nerve root within the subarticular recess. 4. Mild bilateral foraminal encroachment L3/L4 and L4/L5. Mild to moderate bilateral foraminal encroachment at L5/S1. 5. No fracture or subluxation of the lumbar spine. Jeevan Arreola MD Hip and Pelvis X-Ray 06/25/16 0000 Signed Impressions: Service Date/Time: June 20:27 - CONCLUSION: Moderate to severe left hip' right is with considerable osteophytosis and an apparent large inferior joint body. No fracture or subluxation. Jeevan Arreola MD Chest X-Ray 06/23/16 1402 Signed Impressions: Service Date/Time: Thursday, June 23, 2016 14:13 - CONCLUSION: Normal examination. Elías Moreno MD Procedures Colonoscopy 09/01/16 EGD 09/01/16 (Ro Li) Patient/Family Conference Issues Discussed: * Palliative care role, purpose, approach * Additional medical, psychosocial, and spiritual history * Patients general health, functional status, and cognitive changes in the months leading up to the current hospitalization * Patient/family understanding of the current medical problems * Patient/family understanding of general evaluation of overall condition * Patients goals of care as best understood from advance directives * Current medical treatment options and benefits/burdens of those options * Questions answered to the best of my ability * Palliative care contact information provided * Code status discussed (Ro Li) Assessment and Plan Disease Oriented Problem List: (1) Weakness (2) Nausea (3) Radiculopathy of lumbar region (4) Fatigue (5) Diarrhea Symptom Scale: (1) Weakness 0-10 Scale: Unable to quantify (2) Diarrhea 0-10 Scale: Unable to quantify (3) Fatigue 0-10 Scale: Unable to quantify (4) Radiculopathy of lumbar region 0-10 Scale: Unable to quantify (5) Nausea 0-10 Scale: Unable to quantify Pertinent Non-Medical Issues Psychosocial: Lived at home with as her graduate engineer with assistance from son. Refusing SNF or specialty, stating she will return home. previously stated he could not care for her at home, currently says he can care for her if he has a hospital bed at home. Spiritual: Previously attended the anglican at [facility]. Remains in contact with stock clerk and friends. Declines visit from bran mixer in hospital. Legal: No advanced directive, aware and agreeable to her being her legal decision maker. Ethical issues impacting care: . Important Contacts , Adrian [phone], home [phone] Daughter - Rutkatie Troncoso [place], [place]. Prognosis Medically, no terminal conditions have been identified, however, given her current state of health, continued decline is likely. Code Status: Full Code (By default) Plan * Legal decision maker - patient appears able to make her own decisions at this time and wants her to be her legal decision maker in the event that she is unable to participate, and per [place] Statutes, he would be the default decision maker. She also has a son and a daughter, if becomes incapacitated. She does not have a living will, MDPOA or other advanced directives. * Goals - aggressive at this time. She states she wants to go home and resume her previous activities, with the assistance of her , home health care and PT. She does not want to be a DNR and appears to understand the implications of being a full code. She stated she would like to be resuscitated if necessary. S/W per her request and plan to meet with him Wednesday around noon. Contact number provided to . * CODE STATUS - FULL CODE. Symptoms: * Weakness - she complains of pain in her right ankle and foot which has caused her not to try to stand with PT. She has also refused PT due to diarrhea and is refusing SNF for rehabilitation. She states that the weakness she presented with is improving and that she wants to go home with her and [facility] to include PT at home. * Nausea - She continues to be nauseated with dry heaves and occasional emesis in spite of receiving IV reglan scheduled, IV zofran PRN, which she uses about once daily and says is the most effective. She has been refusing her carafate, and other PO meds. She is not eating well but is receiving IV NaCl for hydration. This is considered by GI to be secondary to gastroparesis. Phenergan has been added and this will be monitored for effectiveness. * Back pain - she denies any back pain at this visit. Will continue to monitor. * Fatigue - she denies any fatigue at this visit, but appears weak and unable to care for herself. Will continue to monitor. * Diarrhea - she states the diarrhea is improving today but has had several episodes yesterday. Last PCR 08/19 was positive. Last dose of Dificid was 08/30. PCR ordered for 09/10 then cancelled. GI following. Palliative care will continue to follow during hospital course as condition evolved, to assist patient/decision-maker with understanding of medical conditions, weighing benefits/burdens of treatment options, for clarification of goals of treatment. Additionally, we will assist with any symptoms of palliative concern. (Ro Li) Thank you for the opportunity to participate in the care of Ms. Arerola. (Ro Li) Attestation To help prompt me to consider important information that might be impacting today's encounter and assessment, information from prior notes written by myself or my colleagues may have been "brought forward" into today's note. My signature on this note, however, is an attestation that I personally performed the exam, history, and/or decision-making noted today, and, unless otherwise indicated, the interactions with patient, family, and staff as well as the review of records all occurred today. I also attest that the listed assessment and stated plan reflect my best clinical judgment today based on the combination of historical information, prior notes, and today's exam/ interactions. When time spent is documented, it refers only to time spent today by the signer, or if indicated, combined time spent today by collaborating physician/nurse practitioner. (Ro Li) Collaborating MD Comments dual visit with Farooq ESCOBAR. Present for, and Agree with above history of present illness, family conference , assessment. Patient seen in room no visitors present. She is alert, oriented and seems to have fairly reasonable understanding of hospital course. She expresses aggressive goals, she wants to get home and get back to her baseline level of pivoting and transferring from chair to bed, bed to wheelchair etc. She endorses that she wants to continue to get stronger with PT though she hasn't really seen this happen thus far [and nursing has indicated that she is for the most part reluctant to participate in therapies]. She appears to be able to make her own decisions. She is open to palliative contacting her to provide updates, and provide ongoing follow-up to her and him regarding treatment course going forward. Primary symptom she complains of is ongoing episodic nausea though is well controlled at times using Zofran. Her goal is to control the nausea, and get back home to prior status. She does not appear to have any particular terminal illness at this time though certainly remains high risk for further decline. We did not discuss de- escalation of therapy and hospice she does not really appear to be hospice appropriate at this time. Plan to continue to build rapport with patient, follow along clinical course as she does remain high risk for further complications and setbacks. Plan to continue to revisit goals of treatment as clinical course evolves. Additionally continue to follow with symptoms of nausea, weakness. PE: CONSTITUTIONAL/GENERAL: This is a morbidly obese patient, lying in bed.in no apparent distress. TUBES/LINES/DRAINS: Right wrist PIV, SCD's SKIN: No jaundice, rashes, or lesions. Ecchymosis seen on bilateral lower arms. No wounds seen anteriorly. Skin temperature appropriate. Not diaphoretic. ENT: Hearing grossly normal. Nose without bleeding or purulent drainage. Poor dentition, dry oral mucosa. RESPIRATORY/CHEST: Symmetric, unlabored respirations. Clear to auscultation. Breath sounds equal bilaterally. NEUROLOGICAL: Awake and alert. Oriented x3. Appears to have approp/reasonable understanding. Follows commands. Cognitively sharp. Moves all 4 extremities with generalized weakness. PSYCHIATRIC: No obvious anxiety/depression. no apparent hallucinations or other psychotic thought process. Farooq Li call to patient has been provided brief introduction update and set up for in person meeting with him later this week. (Gerri Grant) Ro Li Sep 14, 2016 11:26 Gerri Grant Sep 14, 2016 16:58
[2016-09-14] MEDS: D5-1/2 NS + KCL 20 MEQ INJ 1,000 ML IV SCH ×3 (11:55→20:55)
[2016-09-14 12:38] VITALS: BP 117/70; PULSE 73; RESP 20; TEMP 97.4; O2SAT 98
--- NOTE | 2016-09-14 13:52 | HHI.GIFU ---
Subjective Remarks Pt states she cannot tolerate any food because she has constant nausea- no improvement. She does take sips of soda and popsicles and a friend at bedside mentioned she takes a small amount soup and sherbert, but patient states she is not taking anything. The nurse reports she is not eating her meals. No bowel movements today. While I was in the room, the patient stated, "I don't really want a feeding tube, but if I really need one, then I would be okay with this." (Chastity Sutherland) Objective Vitals I&O Vital Signs Date Time Temp Pulse Resp B/P Pulse Ox O2 Delivery O2 Flow Rate FiO2 09/14/16 12:38 97.4 73 20 117/70 98 09/14/16 08:26 97.1 78 20 126/61 99 09/14/16 04:00 98.7 78 18 111/65 96 09/14/16 00:00 97.4 98 20 142/56 93 09/13/16 20:00 96.9 79 20 112/60 94 09/13/16 19:00 76 09/13/16 16:31 98.4 81 18 115/74 98 I/O 09/13/16 09/13/16 09/13/16 09/14/16 09/14/16 09/14/16 07:00 15:00 23:00 07:00 15:00 23:00 Intake Total 240 ml 120 ml Balance 240 ml 120 ml Intake Oral 240 ml 120 ml # Voids 2 1 2 Laboratory Laboratory Tests Test 09/13/16 09/14/16 15:46 09:48 Potassium Level 3.9 4.0 Total Bilirubin 1.0 Direct Bilirubin 0.6 Indirect Bilirubin 0.4 Aspartate Amino Transf 113 (AST/SGOT) Alanine Aminotransferase 27 (ALT/SGPT) Alkaline Phosphatase 171 Total Protein 4.8 Albumin 1.6 Lipase 168 Sodium Level 145 Chloride Level 115 Carbon Dioxide Level 22.0 Anion Gap 8 Blood Urea Nitrogen 22 Creatinine 1.04 Estimat Glomerular Filtration 52 Rate Random Glucose 91 Calcium Level 8.4 Magnesium Level 2.0 Imaging Last Impressions Abdomen/Pelvis CT 09/08/16 0000 Signed Impressions: Service Date/Time: Thursday, September 08, 2016 21:55 - CONCLUSION: 1. No acute findings within the abdomen and pelvis. Colonic diverticulosis without diverticulitis. Previous gastric bypass surgery. 2. Small left-sided pleural effusion with mild basilar atelectasis. 3. Atrophic left kidney. Dillon Romero MD Hip MRI 07/05/16 0000 Signed Impressions: Service Date/Time: Tuesday, July 05, 2016 10:51 - CONCLUSION: 1. There is osteopenia primary degenerative changes at both hips, left greater than right. 2. Prominent osteophyte along the inferior articulating surface of the proximal left femur. 3. Nonspecific edema in the gluteus and hamstring muscles. 4. No acute bony fracture. Javier Fishman MD Lower Extremity Ultrasound 06/29/16 0000 Signed Impressions: Service Date/Time: Wednesday, June 29, 2016 10:07 - CONCLUSION: Negative for deep venous thrombosis. Alfredo Sanders MD FACR Cervical Spine MRI 06/27/16 0000 Signed Impressions: Service Date/Time: Monday, June 27, 2016 11:09 - CONCLUSION: Mild degenerative changes otherwise unremarkable cervical spine. Anselmo Leavitt MD Thoracic Spine MRI 06/25/16 0000 Signed Impressions: Service Date/Time: June 19:36 - CONCLUSION: 1. No fracture or subluxation of the thoracic spine. 2. Mild and fairly diffuse degenerative changes as above. 3. Mild left foraminal encroachment at T8/T9 and T9/T10. 4. No significant spinal stenosis at any level. 5. Incidentally seen tiny right and small left pleural effusions, nonspecific. Jeevan Arreola MD Lumbar Spine MRI 06/25/16 Signed Impressions: Service Date/Time: June 19:36 - CONCLUSION: 1. Multilevel lumbar degenerative changes as detailed above. 2. Mild spinal stenosis at L3/L4 without evidence of transiting nerve root impingement. 3. Mild to moderate spinal stenosis at L4/L5 and possibly with mild mass effect/impingement on the transiting left L5 nerve root within the subarticular recess. 4. Mild bilateral foraminal encroachment L3/L4 and L4/L5. Mild to moderate bilateral foraminal encroachment at L5/S1. 5. No fracture or subluxation of the lumbar spine. Jeevan Arreola MD Hip and Pelvis X-Ray 2/2/17 0000 Signed Impressions: Service Date/Time: June 20:27 - CONCLUSION: Moderate to severe left hip' right is with considerable osteophytosis and an apparent large inferior joint body. No fracture or subluxation. Jeevan Arreola MD Chest X-Ray 06/23/16 1402 Signed Impressions: Service Date/Time: Thursday, June 23, 2016 14:13 - CONCLUSION: Normal examination. Elías Moreno MD Physical Exam HEENT: Normocephalic; atraumatic; no jaundice. CHEST: CTA, diminished CARDIAC: RRR ABDOMEN: Soft, nondistended, mild RUQ/LUQ/epigastric tenderness no hepatosplenomegaly; bowel sounds are present. EXTREMITIES: Generalized edema. ELEPHANT TAMER: Awake and oriented times three. (Chastity Sutherland) Assessment and Plan Plan ASSESSMENT: - Persistent N/V, ?gastroparesis. Of note, patient is s/p gastric bypass 5 years ago. She was evaluated with EGD/Colonoscopy (09/01/16)---> esophageal ulcer and anatomy C/W gastric bypass, colonoscopy showed diverticulosis, no sign of colitis. Pathology acute esophagitis, no fungal organisms are present. Abdomen/Pelvis CT (09/08/16)-----> 1. No acute findings within the abdomen and pelvis. Colonic diverticulosis without diverticulitis. Previous gastric bypass surgery. 2. Small left-sided pleural effusion with mild basilar atelectasis. 3. Atrophic left kidney. Still having persistent nausea- no vomiting. Pt has been refusing the Carafate and Marinol. Pt is on Scopolamine, Reglan, Phenergan (has not actually taken yet). She is refusing all po meds except for Atarax and Lortab. Long discussion with patient about taking meds/attempting to eat. She does not feel that she can because of her nausea. [employer] Operator is following and has recommend if PPN needed, CLINIMIX E 4.25/5 @ 70 mls/hr with 20% lipids @ 10 mls/ hr. She has a peripheral line. - Decreased appetite, refusing Marinol. States she cannot eat because of nausea. - Elevated LFTs. Stable. T. Bili 1.0, AST 113, ALT 27, ALk PHosph 171 - Esophageal ulcer. Refusing PPI - Anemia, Hemoccult positive stool. S/P 2 units PRBC, HH has remained stable since. EGD/Colonoscopy as above. - CDiff colitis, s/p oral vanco, dificid. Colonoscopy without any signs of colitis. States diarrhea improved. Repeat CDiff stool ordered on 09/10 but nothing has resulted. Denies bowel movement today. PLAN: - Full liquids, pt has been refusing due to nausea. - Cont. Scopolamine - Cont. Reglan - Cont. Protonix - Pt refusing all po meds except Lortab and Atarax - IF PPN needed, pile driving nozzleman recommends CLINIMIX E 4.25/5 @ 70 mls/hr with 20% lipids @ 10 mls/hr. - Rpt. Stool CDiff still has not resulted. - Supportive care - Further recommendations as the case develops - Pt seen and examined by Dr. Cheatham and myself and this note is written on his behalf (Chastity Sutherland) Physician Comments Patient seen and examined Agree with above Continue with current supportive care Monitor labs Apparently Reglan has been discontinued in favor of Phenergan with little advantage I will increase Zofran from 4 mg IV to 8 mg IV I will highly encourage Marinol I will recommend minimizing narcotic type pain meds We can consider GJ-tube placement (Jc Cheatham MD) Chastity Sutherland Sep 14, 2016 13:52 Jc Cheatham MD Sep 14, 2016 23:34
[2016-09-14 16:58] VITALS: BP 116/70; PULSE 78; RESP 20; TEMP 97.7; O2SAT 96
[2016-09-14] MEDS: REMOVE OLD SCOPOLAMINE PATCH T-DERMAL SCH (18:00)
[2016-09-14] MEDS: SCOPOLAMINE 1.5 MG PATCH T-DERMAL SCH (19:55)
[2016-09-14 20:19] VITALS: BP 118/63; PULSE 80; RESP 18; TEMP 98.6; O2SAT 99
[2016-09-14] MEDS: SERTRALINE HCL 100 MG TAB PO SCH (20:54)
[2016-09-14] MEDS: CETIRIZINE HCL 10 MG TAB PO SCH (20:54)
[2016-09-14] MEDS ORDERED: ONDANSETRON IV PUSH PRN ×2 (23:45)
[2016-09-14] MEDS ORDERED: WATE IV PUSH PRN ×2 (23:45)
[2016-09-14] MEDS ORDERED: DEXTROSE 5% IV PUSH PRN ×2 (23:45)
[2016-09-15 01:02] VITALS: BP 127/67; PULSE 82; RESP 18; TEMP 97.9; O2SAT 96
[2016-09-15] MEDS ORDERED: ONDANSETRON HCL 4 MG/2 ML VIAL IV PUSH PRN (01:45)
[2016-09-15 05:11] VITALS: BP 139/89; PULSE 83; RESP 18; TEMP 98; O2SAT 96
[2016-09-15] MEDS: SUCRALFATE 1 GM/10 ML CUP PO SCH ×4 (05:33→21:00)
[2016-09-15] MEDS: PANTOPRAZOLE SODIUM 40 MG VIAL IV PUSH SCH ×2 (05:33→18:34)
[2016-09-15 08:04] LABS: BICARBONATE 22.9 MEQ/L (21.0-32.0); POTASSIUM 4.2 MEQ/L (3.5-5.1)
[2016-09-15 08:39] VITALS: BP 136/69; PULSE 81; RESP 20; TEMP 96.5; O2SAT 99
[2016-09-15] MEDS: MUPIROCIN 2% CREAM 15 GM TOPICAL SCH ×2 (09:00→21:00)
[2016-09-15] MEDS: SODIUM CHLORIDE 0.9% FLUSH 5 ML FLUSH FLUSH SCH ×2 (09:00→21:00)
[2016-09-15] MEDS: LACTOBACILLUS ACIDOPHILUS TAB PO SCH ×2 (09:00→21:00)
[2016-09-15] MEDS: CALAMINE/PRAMOXINE LOTION 180 ML BTL TOPICAL SCH ×2 (09:00→21:00)
[2016-09-15] MEDS: LISINOPRIL 10 MG TAB PO SCH (09:00)
[2016-09-15] MEDS: ASPIRIN EC 81 MG TABEC PO SCH (09:00)
[2016-09-15] MEDS: DRONABINOL 5 MG CAP PO SCH ×2 (11:00→16:00)
--- NOTE | 2016-09-15 11:03 | HHI.PR ---
Subjective Remarks f/u for nausea patient has no complaints today. She denied any abdominal pain. she stated she is okay with tube feeds. Objective Vitals Vital Signs Date Time Temp Pulse Resp B/P Pulse Ox O2 Delivery O2 Flow Rate FiO2 09/15/16 08:39 96.5 81 20 136/69 99 09/15/16 05:11 98.0 83 18 139/89 96 09/15/16 01:02 97.9 82 18 127/67 96 09/14/16 20:19 98.6 80 18 118/63 99 09/14/16 16:58 97.7 78 20 116/70 96 09/14/16 12:38 97.4 73 20 117/70 98 I/O 09/14/16 09/14/16 09/14/16 09/15/16 09/15/16 09/15/16 07:00 15:00 23:00 07:00 15:00 23:00 Intake Total 2804 ml Balance 2804 ml Intake Oral 960 ml IV Total 1844 ml # Voids 2 2 3 # Bowel Movements 0 Result Diagram: 09/12/16 1058 09/15/16 0710 Objective Remarks Gen morbidly obese CV RRR. no r/m/g Ext 5/5 LE strength Procedures none Medications and IVs Current Medications IV Flush 2 ml 2 ml UNSCH PRN IVF FLUSH AFTER USING IV ACCESS; Start 06/23/16 at 14:15; Stop 06/23/16 at 20:00; Status DC Sodium Chloride 1,000 ml @ 1,000 mls/hr Q1H ONCE IV Last administered on 15:37; Start 06/23/16 at 14:02; Stop 06/23/16 at 15:01; Status DC Ceftriaxone Sodium/Sodium Chloride (Rocephin Inj/NS Inj) 100 ml @ 200 mls/hr ONCE ONCE IV Last administered on 06/23/16 18:25; Start 06/23/16 at 18:00; Stop 06/23/16 at 18:29; Status DC IV Flush (NS Flush) 2 ml UNSCH PRN FLUSH FLUSH AFTER USING IV ACCESS Last administered on 07/25/16 18:44; Start 06/23/16 at 20:00 IV Flush (NS Flush) 2 ml BID FLUSH Last administered on 09/14/16 09:00; Start 06/23/16 at 21:00 Enoxaparin Sodium (Lovenox Inj) 40 mg Q24H SQ Last administered on 08/31/16 09 :20; Start 06/24/16 at 09:00; Status Hold Naloxone HCl 0.4 mg 0.4 mg UNSCH PRN IV SEE LABEL COMMENTS; Start 06/23/16 at 20:00 Levofloxacin/ Dextrose (Levaquin 750 Mg Premix Inj) 150 ml @ 100 mls/hr Q24H IV Last administered on 06/23/16 22:06; Start 06/23/16 at 21:00; Stop 06/24/16 at 09:56; Status DC Acetaminophen/ Hydrocodone Bitart ([place] 5-325 Mg) 1 tab Q6H PRN PO pain >5 Last administered on 06/23/16 22:31; Start 06/23/16 at 22:30; Stop 06/24/16 at 09:59; Status DC Nitrofurantoin Macrocrystals (Macrobid) 100 mg BIDPC PO Last administered on 10:28; Start 06/24/16 at 18:00; Stop 06/25/16 at 13:15; Status DC Amlodipine Besylate (Norvasc) 10 mg DAILY PO Last administered on 09/10/16 09: 27; Start 06/24/16 at 10:00 Aspirin (Ecotrin Ec) 81 mg DAILY PO Last administered on 09/10/16 09:27; Start 06/25/16 at 09:00 Famotidine (Pepcid) 20 mg BID PO Last administered on 07/09/16 09:23; Start at 21:00; Stop 07/09/16 at 15:35; Status DC Furosemide (Lasix) 20 mg DAILY PO Last administered on 09/10/16 09:28; Start 06/25/16 at 09:00; Status Hold Lisinopril (Prinivil) 20 mg DAILY PO Last administered on 08/13/16 09:45; Start 06/24/16 at 10:00; Stop 08/13/16 at 19:10; Status DC Meloxicam (Mobic) 7.5 mg BID PO Last administered on 07/08/16 10:10; Start 06/24/16 at 21:00; Stop 07/08/16 at 17:43; Status DC Potassium Chloride (KCl) 10 meq DAILY PO Last administered on 07/09/16 09:23; Start 06/25/16 at 09:00; Stop 07/09/16 at 14:35; Status DC Sertraline HCl (Zoloft) 200 mg HS PO Last administered on 09/10/16 20:42; Start 06/24/16 at 21:00 Diphenhydramine HCl (Benadryl) 25 mg Q6H PRN PO itching Last administered on 11:45; Start 06/25/16 at 18:00; Stop 06/30/16 at 14:15; Status DC Acetaminophen (Tylenol) 650 mg Q6H PRN PO PAIN SCALE 1 TO 2; Start 06/26/16 at 16:15 Acetaminophen/ Hydrocodone Bitart ([place] 5-325 Mg) 1 tab Q4H PRN PO PAIN SCALE 6 TO 10 Last administered on 09/12/16 18:16; Start 06/26/16 at 16:15 Acetaminophen/ Hydrocodone Bitart ([place] 7.5-325 Mg) 1 tab Q4H PRN PO PAIN SCALE 6 TO 10 Last administered on 08/05/16 15:19; Start 06/26/16 at 16:15; Stop 08/05/16 at 16:07; Status DC Calamine/Pramoxine (Caladryl Lotion) 1 applic Q12HR TOPICAL Last administered on 09/12/16 09:00; Start 06/27/16 at 09:00 Trimethoprim/ Sulfamethoxazole (Bactrim 400-80 Mg) 1 tab Q12HR PO Last administered on 07/08/16 10:12; Start 06/28/16 at 12:00; Stop 07/08/16 at 11:59 ; Status DC Cephalexin Monohydrate (Keflex) 250 mg Q8HR PO Last administered on 07/08/16 05:31; Start 06/28/16 at 14:00; Stop 07/08/16 at 13:59; Status DC Cetirizine HCl (ZyrTEC) 10 mg HS PO Last administered on 09/10/16 20:42; Start 06/29/16 at 21:00 Prednisone (Deltasone) 40 mg DAILY PO Last administered on 07/02/16 10:56; Start 06/29/16 at 10:00; Stop 07/02/16 at 09:59; Status DC Hydroxyzine HCl (Atarax) 10 mg Q6H PRN PO itching/anxiety Last administered on 07/02/16 11:03; Start 06/30/16 at 14:15; Stop 07/02/16 at 12:08; Status DC Hydroxyzine HCl (Atarax) 25 mg Q6H PRN PO ITCHING/ANXIETY Last administered on 07/08/16 17:16; Start 07/02/16 at 12:15; Stop 07/08/16 at 17:43; Status DC Metronidazole (Flagyl) 500 mg Q8HR PO Last administered on 07/17/16 21:05; Start 07/04/16 at 02:58; Stop 07/18/16 at 02:57; Status DC Lactobacillus Acidophilus (Lactinex) 1 tab Q12HR PO Last administered on 20:48; Start 07/04/16 at 21:00 Naloxone HCl (Narcan Inj) 0.4 mg UNSCH X1 PRN IV PUSH RESP DEPRESSION OR HYPOTENSION; Start 07/07/16 at 08:00; Stop 07/09/16 at 07:59; Status DC Ondansetron HCl (Zofran Inj) 4 mg Q6H PRN IV PUSH nausea Last administered on 17:08; Start 07/07/16 at 13:45; Stop 09/14/16 at 23:37; Status DC Nystatin (Mycostatin Cream) 1 applic Q12HR TOPICAL Last administered on 10:54; Start 07/07/16 at 15:00; Stop 07/13/16 at 13:48; Status DC Hydroxyzine HCl (Atarax) 50 mg Q6H PRN PO ITCHING/ANXIETY Last administered on 09/12/16 18:17; Start 07/08/16 at 18:15 Famotidine (Pepcid) 10 mg BID PO Last administered on 07/23/16 08:56; Start at 21:00; Stop 09/08/16 at 10:36; Status DC Miscellaneous (Pill Splitter) 1 ea UNSCH PRN OTHER SEE LABEL COMMENTS Last administered on 07/11/16 08:23; Start 07/09/16 at 15:45 Potassium Chloride (KCl) 10 meq ONCE ONCE PO Last administered on 07/10/16 17 :52; Start 07/10/16 at 17:30; Stop 07/10/16 at 17:31; Status DC Potassium Chloride (KCl) 10 meq ONCE ONCE PO Last administered on 07/11/16 11 :38; Start 07/11/16 at 11:30; Stop 07/11/16 at 11:31; Status DC Potassium Chloride (KCl) 20 meq ONCE ONCE PO Last administered on 07/13/16 11 :46; Start 07/13/16 at 12:00; Stop 07/13/16 at 12:01; Status DC Nystatin (Mycostatin Cream) 1 applic Q6HR TOPICAL Last administered on 23:11; Start 07/13/16 at 13:30; Stop 08/04/16 at 10:02; Status DC Mupirocin (Bactroban 2% Cream) 1 applic Q12HR TOPICAL Last administered on 09/12 09:00; Start 07/13/16 at 13:30 Nystatin (Mycostatin Liq) 5 ml QID SWISH-SWAL Last administered on 07/27/16 10 :16; Start 07/14/16 at 18:00; Stop 07/28/16 at 17:59; Status DC Promethazine HCl (Phenergan Inj) 25 mg ONCE ONCE IM Last administered on 21:30; Start 07/25/16 at 21:30; Stop 07/25/16 at 21:31; Status DC Metronidazole (Flagyl) 500 mg Q8HR PO ; Start 07/26/16 at 16:15; Stop 07/26/16 at 16:24; Status DC Vancomycin HCl (VANCOMYCIN for oral use only) 250 mg QID PO Last administered on 08/12/16 12:32; Start 07/26/16 at 18:00; Stop 08/12/16 at 14:30; Status DC Metoclopramide HCl 10 mg 10 mg ACHS PRN PO NAUSEA OR VOMITING Last administered on 07/31/16 22:02; Start 07/26/16 at 16:30; Stop 08/07/16 at 14:14 ; Status DC Magnesium Sulfate/ Dextrose (Magnesium Sulfate 1 Gm Premix) 100 ml @ 100 mls/ hr Q1H IV Last administered on 07/30/16 21:21; Start 07/30/16 at 18:00; Stop 07/30/16 at 19:59; Status DC Potassium Chloride (KCl) 60 meq ONCE ONCE PO Last administered on 07/30/16 18: 46; Start 07/30/16 at 17:15; Stop 07/30/16 at 17:16; Status DC Potassium Chloride (KCl) 40 meq ONCE ONCE PO Last administered on 08/05/16 15 :04; Start 08/05/16 at 14:30; Stop 08/05/16 at 14:31; Status DC Acetaminophen/ Hydrocodone Bitart ([place] 10-325 Mg) 1 tab Q4H PRN PO pain 6-10 Last administered on 08/07/16 09:45; Start 08/05/16 at 16:15; Stop 08/07/16 at 14:11; Status DC Morphine Sulfate (Morphine Inj) 2 mg Q3H PRN IV PUSH breakthrough pain; Start 08/05/16 at 16:15; Stop 08/06/16 at 15:49; Status DC Ketorolac Tromethamine (Toradol Inj) 15 mg Q6HR IV PUSH Last administered on 17:15; Start 08/06/16 at 18:00; Stop 08/09/16 at 00:01; Status DC Metoclopramide HCl (Reglan Inj) 5 mg TIDAC IV PUSH Last administered on 15:16; Start 08/07/16 at 17:00; Stop 09/13/16 at 17:59; Status DC Senna/Docusate Sodium (Leti-Colace) 2 tab BID PO Last administered on 09:52; Start 08/09/16 at 12:15; Stop 09/11/16 at 18:29; Status DC Potassium Chloride (KCl) 40 meq ONCE ONCE PO Last administered on 08/09/16 12 :54; Start 08/09/16 at 12:30; Stop 08/09/16 at 12:31; Status DC Vancomycin HCl (VANCOMYCIN for oral use only) 500 mg QID PO Last administered on 08/18/16 21:37; Start 08/12/16 at 18:00; Stop 08/19/16 at 08:47; Status DC Lisinopril (Prinivil) 10 mg DAILY PO Last administered on 09/10/16 09:27; Start 08/14/16 at 09:00 Potassium Chloride (KCl) 30 meq ONCE ONCE PO Last administered on 08/14/16 22 :24; Start 08/14/16 at 19:00; Stop 08/14/16 at 19:01; Status DC Dronabinol (Marinol) 2.5 mg ONCE ONCE PO Last administered on 08/15/16 14:15 ; Start 08/15/16 at 12:45; Stop 08/15/16 at 12:46; Status DC Dronabinol (Marinol) 5 mg BID@11,16 PO Last administered on 09/10/16 16:43; Start 08/15/16 at 16:00 Vancomycin HCl (VANCOMYCIN for oral use only) 250 mg Q12HR PO Last administered on 08/20/16 09:46; Start 08/19/16 at 09:00; Stop 08/20/16 at 16:09 ; Status DC Vancomycin HCl (VANCOMYCIN for oral use only) 250 mg Q6HR PO Last administered on 08/20/16 17:04; Start 08/20/16 at 18:00; Stop 08/20/16 at 19:11; Status DC Fidaxomicin (Dificid) 200 mg BID PO Last administered on 08/30/16 09:41; Start 08/20/16 at 21:00; Stop 08/30/16 at 20:59; Status DC Cholestyramine Resin 4 gm 4 gm Q8HR PO Last administered on 09/04/16 20:52; Start 08/23/16 at 14:00; Stop 09/08/16 at 10:36; Status DC Magnesium Sulfate/ Dextrose 100 ml @ 100 mls/hr Q1H IV Last administered on 12:18; Start 08/24/16 at 09:30; Stop 08/24/16 at 11:29; Status DC Potassium Chloride 100 ml @ 50 mls/hr Q2H IV Last administered on 08/24/16 12: 22; Start 08/24/16 at 09:30; Stop 08/24/16 at 13:29; Status DC Potassium Chloride 100 ml @ 50 mls/hr ONCE ONCE IV Last administered on 22:23; Start 08/24/16 at 19:00; Stop 08/24/16 at 20:59; Status DC Potassium Chloride 100 ml @ 50 mls/hr Q2H IV Last administered on 08/25/16 12: 53; Start 08/25/16 at 09:15; Stop 08/25/16 at 13:14; Status DC Potassium Chloride 100 ml @ 100 mls/hr Q1H IV Last administered on 08/26/16 16 :48; Start 08/26/16 at 13:00; Stop 08/26/16 at 16:06; Status DC Sodium Chloride 500 ml @ 500 mls/hr BOLUS ONCE IV Last administered on 01:34; Start 08/29/16 at 01:30; Stop 08/29/16 at 02:29; Status DC Potassium Chloride/Sodium Chloride (NS + KCl 20 Meq Inj) 1,000 ml @ 70 mls/hr [id number] IV Last administered on 08/30/16 11:47; Start 08/30/16 at 10:00; Stop at 00:17; Status DC Polyethylene Glycol/ Electrolytes (Colyte Liq) 4,000 ml ONCE ONCE PO Last administered on 08/31/16 18:54; Start 08/31/16 at 18:15; Stop 08/31/16 at 18:16 ; Status DC Magnesium Citrate (Citroma Liq) 600 ml NOW ONCE PO Last administered on 05:48; Start 09/01/16 at 05:45; Stop 09/01/16 at 05:46; Status DC Sodium Biphosphate/ Sodium Phosphate 266 ml 266 ml ONCE ONCE RECTAL Last administered on 09/01/16 08:48; Start 09/01/16 at 08:00; Stop 09/01/16 at 08:01 ; Status DC Lactated Ringer's 1,000 ml @ 30 mls/hr Q24H PRN IV SEE LABEL COMMENTS; Start at 08:45; Stop 09/01/16 at 12:08; Status DC Sodium Chloride (NS 500 ml Inj) 500 ml @ 30 mls/hr [id number] PRN IV SEE LABEL COMMENTS; Start 09/01/16 at 08:45; Stop 09/01/16 at 12:08; Status DC Metoprolol Tartrate (Lopressor) 25 mg UPHOLSTERY AUTO TRIMMER PRN PO SEE LABEL COMMENTS; Start 09/01/16 at 08:45; Stop 09/04/16 at 08:44; Status DC Povidone Iodine (Betadine 5% Antisepsis Kit) 1 applic UPHOLSTERY AUTO TRIMMER PRN EACH NARE SEE LABEL COMMENTS; Start 09/01/16 at 08:45; Stop 09/04/16 at 08:44; Status DC Chlorhexidine Gluconate (Chlorhexidine 2% Cloth) 3 pack UPHOLSTERY AUTO TRIMMER PRN TOPICAL SEE LABEL COMMENTS; Start 09/01/16 at 08:45; Stop 09/04/16 at 08:44; Status DC Insulin Human Regular (NovoLIN R INJ) See Protocol Table ... UPHOLSTERY AUTO TRIMMER PRN SQ SEE PROTOCOL TABLE; Start 09/01/16 at 08:45; Stop 09/04/16 at 08:44; Status DC Pantoprazole Sodium 40 mg 40 mg DAILY PO Last administered on 09/07/16 09:55; Start 09/01/16 at 12:00; Stop 09/08/16 at 10:36; Status DC Sodium Chloride 500 ml @ 500 mls/hr BOLUS ONCE IV Last administered on 12:00; Start 09/01/16 at 12:00; Stop 09/01/16 at 12:59; Status DC Potassium Chloride/Sodium Chloride (NS + KCl 20 Meq Inj) 1,000 ml @ 84 mls/hr [id number] IV Last administered on 09/02/16 22:07; Start 09/01/16 at 12:00; Stop 09/03/16 at 21:17; Status DC Miscellaneous Information ALL NURSING DEPARTME... UNSCH PRN .XX SEE LABEL COMMENTS; Start 09/01/16 at 13:00; Stop 09/02/16 at 12:59; Status DC Propofol (Diprivan 200 Mg/20 ml Inj) 160 mg STK-MED ONCE IV ; Start 09/01/16 at 10:57; Stop 09/01/16 at 13:10; Status DC Pantoprazole Sodium (Protonix) 40 mg BID PO Last administered on 09/10/16 20: 43; Start 09/08/16 at 21:00; Stop 09/13/16 at 17:09; Status DC Sucralfate (Carafate Liq) 1 gm ACHS PO Last administered on 09/14/16 20:46; Start 09/08/16 at 11:00 Magnesium Citrate (Citroma Liq) 300 ml ONCE ONCE PO Last administered on 13:16; Start 09/08/16 at 12:00; Stop 09/08/16 at 12:40; Status DC Magnesium Citrate (Citroma Liq) 300 ml ONCE ONCE PO Last administered on 17:48; Start 09/08/16 at 18:00; Stop 09/08/16 at 18:01; Status DC Bisacodyl (Dulcolax Ec) 10 mg DAILY@18,21 PO Last administered on 09/08/16 22: 33; Start 09/08/16 at 18:00; Stop 09/08/16 at 21:01; Status DC Diatrizoate Meglum/ Diatrizoate Sod ( Gastroview Liq) 18 ml ONCE ONCE PO ; Start 09/08/16 at 18:24; Stop 09/08/16 at 19:12; Status DC Scopolamine (Transderm-Scop 1.5 Mg Patch.72 Hr) 1 patch Q3D T-DERMAL Last administered on 09/14/16 19:55; Start 09/11/16 at 18:00 Miscellaneous Information 1 1 Q3D T-DERMAL Last administered on 09/14/16 18:00 ; Start 09/14/16 at 18:00 Sodium Chloride 500 ml @ 50 mls/hr Q10H IV Last administered on 09/11/16 18: 47; Start 09/11/16 at 18:15; Stop 09/12/16 at 04:14; Status DC Potassium Chloride 100 ml @ 100 mls/hr Q1H IV Last administered on 09/12/16 15:00; Start 09/12/16 at 13:00; Stop 09/12/16 at 15:59; Status DC Potassium Chloride/Dextrose/ Sod Cl (D5-1/2 NS + KCl 20 Meq Inj) 1,000 ml @ 84 mls/hr [id number] IV Last administered on 09/14/16 20:55; Start 09/12/16 at 12:15 Potassium Chloride 30 meq 30 meq ONCE ONCE PO ; Start 09/13/16 at 09:15; Stop 09/13/16 at 10:45; Status DC Potassium Chloride (KCl 10 Meq Premix Inj) 100 ml @ 100 mls/hr BOLUS ONCE IV Last administered on 09/13/16 13:12; Start 09/13/16 at 10:45; Stop 09/13/16 at 11:44; Status DC Pantoprazole Sodium (Protonix Inj) 40 mg Q12H IV PUSH Last administered on 09/15 05:33; Start 09/13/16 at 18:00 Promethazine HCl (Phenergan) 12.5 mg Q6H PRN PO nausea; Start 09/13/16 at 18:00 Ondansetron HCl 8 mg 8 mg Q6H PRN IV PUSH nausea; Start 09/15/16 at 01:45; Status UNV Ondansetron HCl 8 mg/Dextrose 54 ml @ 216 mls/hr Q6H PRN IV PUSH NAUSEA OR VOMITING; Start 09/14/16 at 23:45; Stop 09/15/16 at 05:36; Status DC Ondansetron HCl/ Dextrose (Zofran Inj/D5W Inj) 54 ml @ 216 mls/hr Q6H PRN IV NAUSEA OR VOMITING; Start 09/15/16 at 05:36 A/P Problem List: (1) Total self-care deficit ICD Code: R41.89 Status: Acute (2) Sacral pressure ulcer ICD Code: L89.159 Status: Chronic (3) Subclinical hypothyroidism ICD Code: E03.9 Status: Acute (4) Radiculopathy of lumbar region ICD Code: M54.16 Status: Acute Assessment and Plan Mrs. Arreola is a 70-year-old female with a known history of hypertension, obesity , arthritis, status post gastric bypass who presented to the ED on 06/23/16 with complaints of generalized weakness for two weeks. Apparently patient had been discharged on 06/08/16 with home health care and sustained a fall at home with progressive weakness. Supposedly she is wheelchair bound at home and unable to transfer independently. Poor appetite secondary to nausea and vomiting: Encourage PO intake as tolerated. Zofran IV PRN. Continue IV Reglan. Continue Marinol for appetite stimulant. Dietitian consulted for calorie count, may need to consider PEG tube for supplemental feeding. Full liquids per GI. Scopolamine patch added. BMP with signs of hemoconcentration/dehydration. On D5. Consult palliative care. Continue management per GI. unsure what else can be offered in hospital. she may need to go to academic facility to see if anything can be offered, but patient declined. patient stated okay with PEG. Hypokalemia: resolved. Epigastric pain likely secondary to ulcer: Continue Protonix. Sacral pressure ulcer, resolved: Encourage repositioning patient every 2 hours. Specialty mattress continued. C. difficile diarrhea: Diarrhea is currently improved. Last BM 09/05. Last Tox PCR positive on 08/19. Has previously been treated with Flagyl, oral vancomycin. ID previously consulted on 08/20 with recommendations to discontinue Vanco and begin Dificid, completed course of Dificid. Generalized weakness: Continue physical therapy. Will need nursing facility at discharge, case management following, but patient declined. she stated she wants to go home. Lumbar radiculopathy: Neurosurgery signed off, no surgical intervention recommended at this time. Control pain [place] PRN per pain scale. Anemia, GI bleed: Stool Hemoccult is positive on 08/30. Status post EGD, which showed esophageal ulcer. S/p transfusion 2 units on 09/02. Hb stable. Other chronic medical history includes osteoarthritis, CKD stage III are stable at this time. DVT prophylaxis: SCDs/TEDs. Discharge Planning patient agreed to PEG. once placed okay to be d./c to home with home health. Problem Qualifiers (1) Sacral pressure ulcer: Qualified Code: L89.151 - Decubitus ulcer of sacral region, stage 1 Paola Carballo MD Sep 15, 2016 11:03
--- NOTE | 2016-09-15 11:09 | HHI.GIFU ---
Subjective Remarks Resting in bed. Continues to have constant nausea- states she cannot eat anything because as soon as it gets to her mouth, she becomes very nauseous. No improvement since Zofran was increased. She is still refusing all meds except lortab and atarax. (Chastity Sutherland) Objective Vitals I&O Vital Signs Date Time Temp Pulse Resp B/P Pulse Ox O2 Delivery O2 Flow Rate FiO2 09/15/16 08:39 96.5 81 20 136/69 99 09/15/16 05:11 98.0 83 18 139/89 96 09/15/16 01:02 97.9 82 18 127/67 96 09/14/16 20:19 98.6 80 18 118/63 99 09/14/16 16:58 97.7 78 20 116/70 96 09/14/16 12:38 97.4 73 20 117/70 98 I/O 09/14/16 09/14/16 09/14/16 09/15/16 09/15/16 09/15/16 07:00 15:00 23:00 07:00 15:00 23:00 Intake Total 2804 ml Balance 2804 ml Intake Oral 960 ml IV Total 1844 ml # Voids 2 2 3 # Bowel Movements 0 Laboratory Laboratory Tests Test 09/15/16 07:10 Sodium Level 146 Potassium Level 4.2 Chloride Level 115 Carbon Dioxide Level 22.9 Anion Gap 8 Blood Urea Nitrogen 23 Creatinine 1.02 Estimat Glomerular Filtration 54 Rate Random Glucose 100 Calcium Level 8.1 Imaging Last Impressions Abdomen/Pelvis CT 09/08/16 0000 Signed Impressions: Service Date/Time: Thursday, September 08, 2016 21:55 - CONCLUSION: 1. No acute findings within the abdomen and pelvis. Colonic diverticulosis without diverticulitis. Previous gastric bypass surgery. 2. Small left-sided pleural effusion with mild basilar atelectasis. 3. Atrophic left kidney. Dillon Romero MD Hip MRI 07/05/16 0000 Signed Impressions: Service Date/Time: Tuesday, July 05, 2016 10:51 - CONCLUSION: 1. There is osteopenia primary degenerative changes at both hips, left greater than right. 2. Prominent osteophyte along the inferior articulating surface of the proximal left femur. 3. Nonspecific edema in the gluteus and hamstring muscles. 4. No acute bony fracture. Javier J. Siragusa, MD Lower Extremity Ultrasound 06/29/16 0000 Signed Impressions: Service Date/Time: Wednesday, June 29, 2016 10:07 - CONCLUSION: Negative for deep venous thrombosis. Alfredo Sanders MD FACR Cervical Spine MRI 06/27/16 0000 Signed Impressions: Service Date/Time: Monday, June 27, 2016 11:09 - CONCLUSION: Mild degenerative changes otherwise unremarkable cervical spine. Anselmo Leavitt MD Thoracic Spine MRI 06/25/16 0000 Signed Impressions: Service Date/Time: June 19:36 - CONCLUSION: 1. No fracture or subluxation of the thoracic spine. 2. Mild and fairly diffuse degenerative changes as above. 3. Mild left foraminal encroachment at T8/T9 and T9/T10. 4. No significant spinal stenosis at any level. 5. Incidentally seen tiny right and small left pleural effusions, nonspecific. Jeevan Arreola MD Lumbar Spine MRI 06/25/16 0000 Signed Impressions: Service Date/Time: June 19:36 - CONCLUSION: 1. Multilevel lumbar degenerative changes as detailed above. 2. Mild spinal stenosis at L3/L4 without evidence of transiting nerve root impingement. 3. Mild to moderate spinal stenosis at L4/L5 and possibly with mild mass effect/impingement on the transiting left L5 nerve root within the subarticular recess. 4. Mild bilateral foraminal encroachment L3/L4 and L4/L5. Mild to moderate bilateral foraminal encroachment at L5/S1. 5. No fracture or subluxation of the lumbar spine. Jeevan Arreola MD Hip and Pelvis X-Ray 06/25/16 0000 Signed Impressions: Service Date/Time: June 20:27 - CONCLUSION: Moderate to severe left hip' right is with considerable osteophytosis and an apparent large inferior joint body. No fracture or subluxation. Jeevan Arreola MD Chest X-Ray 06/23/16 1402 Signed Impressions: Service Date/Time: Thursday, June 23, 2016 14:13 - CONCLUSION: Normal examination. Elías Moreno MD Physical Exam HEENT: Normocephalic; atraumatic; no jaundice. CHEST: CTA, diminished CARDIAC: RRR ABDOMEN: Soft, nondistended, mild RUQ/LUQ/epigastric tenderness no hepatosplenomegaly; bowel sounds are present. EXTREMITIES: Generalized edema. COMBINED RAIL OPERATOR: Awake and oriented times three. (SutherlandChastity) Assessment and Plan Plan ASSESSMENT: - Persistent N/V, ?gastroparesis. Of note, patient is s/p gastric bypass 5 years ago. She was evaluated with EGD/Colonoscopy (09/01/16)---> esophageal ulcer and anatomy C/W gastric bypass, colonoscopy showed diverticulosis, no sign of colitis. Pathology acute esophagitis, no fungal organisms are present. Abdomen/Pelvis CT (09/08/16)-----> 1. No acute findings within the abdomen and pelvis. Colonic diverticulosis without diverticulitis. Previous gastric bypass surgery. 2. Small left-sided pleural effusion with mild basilar atelectasis. 3. Atrophic left kidney. Still having persistent nausea- no vomiting. She continues to refuse all po meds except Atarax and Lortab. She still is not eating any po diet. States that she cannot. [employer]asing [employer] is following and has recommend if PPN needed, CLINIMIX E 4.25/5 @ 70 mls/hr with 20% lipids @ 10 mls/hr. D/W patient possible G/J tube for nutrition and she is agreeable to this. Will consult IR for G/J tube placement and ask for TF recommendations from the lead advisor. - Decreased appetite, refusing Marinol. States she cannot eat because of nausea. - Elevated LFTs. Stable. - Esophageal ulcer. Protonix. - Anemia, Hemoccult positive stool. S/P 2 units PRBC, HH has remained stable since. EGD/Colonoscopy as above. - CDiff colitis, s/p oral vanco, dificid. Colonoscopy without any signs of colitis. States diarrhea improved. Repeat CDiff stool ordered on 09/10 but nothing has resulted. Denies bowel movement today. PLAN: - Consult IR for G/J tube placement - [employer] for TF recommendations - Cont. Scopolamine - Cont. Protonix - Cont. Zofran prn - Pt refusing all po meds except Lortab and Atarax - Rpt. Stool CDiff still has not resulted. - Supportive care - Further recommendations as the case develops - Pt seen and examined by Dr. Cheatham and myself and this note is written on his behalf (Chastity Sutherland) Physician Comments Patient seen and examined Agree with above Continue with current supportive care Monitor labs We will proceed with a GJ tube placement (Jc Cheatham MD) Chastity Sutherland Sep 15, 2016 11:09 Jc Cheatham MD Sep 15, 2016 22:47
[2016-09-15] MEDS: ONDANSETRON INJ 8 MG in DEXTROSE 5% IN WATER INJ 50 ML IV PRN ×4 (11:38→18:34)
[2016-09-15] MEDS: D5-1/2 NS + KCL 20 MEQ INJ 1,000 ML IV SCH ×2 (11:38→22:52)
[2016-09-15 13:08] VITALS: BP 127/60; PULSE 80; RESP 20; TEMP 97.1; O2SAT 99
[2016-09-15 14:31] LABS: BICARBONATE 23.7 MEQ/L (21.0-32.0)
[2016-09-15 17:51] VITALS: BP 123/67; PULSE 79; RESP 20; TEMP 96.6; O2SAT 96
[2016-09-15] MEDS: SERTRALINE HCL 100 MG TAB PO SCH (21:00)
[2016-09-15] MEDS: CETIRIZINE HCL 10 MG TAB PO SCH (21:00)
[2016-09-15 21:20] VITALS: BP 124/63; PULSE 80; RESP 18; TEMP 97.6; O2SAT 96
[2016-09-16] VITALS (8 sets, daily range): BP systolic 123–159; BP diastolic 60–89; PULSE 77–84; RESP 18–22; TEMP 96.6–97.4; O2SAT 95–99
[2016-09-16] MEDS: PANTOPRAZOLE SODIUM 40 MG VIAL IV PUSH SCH ×2 (06:00→17:45)
[2016-09-16] MEDS: SUCRALFATE 1 GM/10 ML CUP PO SCH ×4 (06:36→21:00)
[2016-09-16] MEDS: LISINOPRIL 10 MG TAB PO SCH (09:00)
[2016-09-16] MEDS: SODIUM CHLORIDE 0.9% FLUSH 5 ML FLUSH FLUSH SCH ×2 (09:00→21:00)
[2016-09-16] MEDS: ASPIRIN EC 81 MG TABEC PO SCH (09:00)
[2016-09-16] MEDS: LACTOBACILLUS ACIDOPHILUS TAB PO SCH ×2 (09:00→21:00)
[2016-09-16] MEDS: MUPIROCIN 2% CREAM 15 GM TOPICAL SCH ×2 (09:28→21:55)
[2016-09-16] MEDS: CALAMINE/PRAMOXINE LOTION 180 ML BTL TOPICAL SCH ×2 (09:28→21:00)
--- NOTE | 2016-09-16 09:53 | HHI.PR ---
Subjective Remarks f/u for nausea patient stated she feels the same and continues to be nauseated she stated she is very anxious to go home and wants to be home with her . she is scheduled for a PEG today. she had no other complaints. Denied any pain. Objective Vitals Vital Signs Date Time Temp Pulse Resp B/P Pulse Ox O2 Delivery O2 Flow Rate FiO2 09/16/16 07:55 96.6 80 18 127/60 98 09/16/16 04:11 97.3 77 18 137/66 97 09/16/16 00:34 96.7 83 18 159/89 96 09/15/16 21:20 97.6 80 18 124/63 96 09/15/16 17:51 96.6 79 20 123/67 96 09/15/16 13:08 97.1 80 20 127/60 99 I/O 09/15/16 09/15/16 09/15/16 09/16/16 09/16/16 09/16/16 07:00 15:00 23:00 07:00 15:00 23:00 Intake Total 450 ml 955 ml Balance 450 ml 955 ml IV Total 450 ml 955 ml # Voids 3 1 # Bowel Movements 0 0 Result Diagram: 09/12/16 1058 09/15/16 1231 Objective Remarks Gen morbidly obese CV RRR. no r/m/g abd: soft NDNT. no peritoneal signs. Ext 5/5 LE strength Procedures none Medications and IVs Current Medications IV Flush 2 ml 2 ml UNSCH PRN IVF FLUSH AFTER USING IV ACCESS; Start 06/23/16 at 14:15; Stop 06/23/16 at 20:00; Status DC Sodium Chloride 1,000 ml @ 1,000 mls/hr Q1H ONCE IV Last administered on 15:37; Start 06/23/16 at 14:02; Stop 06/23/16 at 15:01; Status DC Ceftriaxone Sodium/Sodium Chloride (Rocephin Inj/NS Inj) 100 ml @ 200 mls/hr ONCE ONCE IV Last administered on 06/23/16 18:25; Start 06/23/16 at 18:00; Stop 06/23/16 at 18:29; Status DC IV Flush (NS Flush) 2 ml UNSCH PRN FLUSH FLUSH AFTER USING IV ACCESS Last administered on 07/25/16 18:44; Start 06/23/16 at 20:00 IV Flush (NS Flush) 2 ml BID FLUSH Last administered on 09/14/16 09:00; Start 06/23/16 at 21:00 Enoxaparin Sodium (Lovenox Inj) 40 mg Q24H SQ Last administered on 08/31/16 09 :20; Start 06/24/16 at 09:00; Status Hold Naloxone HCl 0.4 mg 0.4 mg UNSCH PRN IV SEE LABEL COMMENTS; Start 06/23/16 at 20:00 Levofloxacin/ Dextrose (Levaquin 750 Mg Premix Inj) 150 ml @ 100 mls/hr Q24H IV Last administered on 06/23/16 22:06; Start 06/23/16 at 21:00; Stop 06/24/16 at 09:56; Status DC Acetaminophen/ Hydrocodone Bitart ([place] 5-325 Mg) 1 tab Q6H PRN PO pain >5 Last administered on 06/23/16 22:31; Start 06/23/16 at 22:30; Stop 06/24/16 at 09:59; Status DC Nitrofurantoin Macrocrystals (Macrobid) 100 mg BIDPC PO Last administered on 10:28; Start 06/24/16 at 18:00; Stop 06/25/16 at 13:15; Status DC Amlodipine Besylate (Norvasc) 10 mg DAILY PO Last administered on 09/10/16 09: 27; Start 06/24/16 at 10:00 Aspirin (Ecotrin Ec) 81 mg DAILY PO Last administered on 09/10/16 09:27; Start 06/25/16 at 09:00 Famotidine (Pepcid) 20 mg BID PO Last administered on 07/09/16 09:23; Start at 21:00; Stop 07/09/16 at 15:35; Status DC Furosemide (Lasix) 20 mg DAILY PO Last administered on 09/10/16 09:28; Start 06/25/16 at 09:00; Status Hold Lisinopril (Prinivil) 20 mg DAILY PO Last administered on 08/13/16 09:45; Start 06/24/16 at 10:00; Stop 08/13/16 at 19:10; Status DC Meloxicam (Mobic) 7.5 mg BID PO Last administered on 07/08/16 10:10; Start 06/24/16 at 21:00; Stop 07/08/16 at 17:43; Status DC Potassium Chloride (KCl) 10 meq DAILY PO Last administered on 07/09/16 09:23; Start 06/25/16 at 09:00; Stop 07/09/16 at 14:35; Status DC Sertraline HCl (Zoloft) 200 mg HS PO Last administered on 09/10/16 20:42; Start 06/24/16 at 21:00 Diphenhydramine HCl (Benadryl) 25 mg Q6H PRN PO itching Last administered on 11:45; Start 06/25/16 at 18:00; Stop 06/30/16 at 14:15; Status DC Acetaminophen (Tylenol) 650 mg Q6H PRN PO PAIN SCALE 1 TO 2; Start 06/26/16 at 16:15 Acetaminophen/ Hydrocodone Bitart ([place] 5-325 Mg) 1 tab Q4H PRN PO PAIN SCALE 6 TO 10 Last administered on 09/12/16 18:16; Start 06/26/16 at 16:15 Acetaminophen/ Hydrocodone Bitart ([place] 7.5-325 Mg) 1 tab Q4H PRN PO PAIN SCALE 6 TO 10 Last administered on 08/05/16 15:19; Start 06/26/16 at 16:15; Stop 08/05/16 at 16:07; Status DC Calamine/Pramoxine (Caladryl Lotion) 1 applic Q12HR TOPICAL Last administered on 09/16/16 09:28; Start 06/27/16 at 09:00 Trimethoprim/ Sulfamethoxazole (Bactrim 400-80 Mg) 1 tab Q12HR PO Last administered on 07/08/16 10:12; Start 06/28/16 at 12:00; Stop 07/08/16 at 11:59 ; Status DC Cephalexin Monohydrate (Keflex) 250 mg Q8HR PO Last administered on 07/08/16 05:31; Start 06/28/16 at 14:00; Stop 07/08/16 at 13:59; Status DC Cetirizine HCl (ZyrTEC) 10 mg HS PO Last administered on 09/10/16 20:42; Start 06/29/16 at 21:00 Prednisone (Deltasone) 40 mg DAILY PO Last administered on 07/02/16 10:56; Start 06/29/16 at 10:00; Stop 07/02/16 at 09:59; Status DC Hydroxyzine HCl (Atarax) 10 mg Q6H PRN PO itching/anxiety Last administered on 07/02/16 11:03; Start 06/30/16 at 14:15; Stop 07/02/16 at 12:08; Status DC Hydroxyzine HCl (Atarax) 25 mg Q6H PRN PO ITCHING/ANXIETY Last administered on 07/08/16 17:16; Start 07/02/16 at 12:15; Stop 07/08/16 at 17:43; Status DC Metronidazole (Flagyl) 500 mg Q8HR PO Last administered on 07/17/16 21:05; Start 07/04/16 at 02:58; Stop 07/18/16 at 02:57; Status DC Lactobacillus Acidophilus (Lactinex) 1 tab Q12HR PO Last administered on 20:48; Start 07/04/16 at 21:00 Naloxone HCl (Narcan Inj) 0.4 mg UNSCH X1 PRN IV PUSH RESP DEPRESSION OR HYPOTENSION; Start 07/07/16 at 08:00; Stop 07/09/16 at 07:59; Status DC Ondansetron HCl (Zofran Inj) 4 mg Q6H PRN IV PUSH nausea Last administered on 17:08; Start 07/07/16 at 13:45; Stop 09/14/16 at 23:37; Status DC Nystatin (Mycostatin Cream) 1 applic Q12HR TOPICAL Last administered on 10:54; Start 07/07/16 at 15:00; Stop 07/13/16 at 13:48; Status DC Hydroxyzine HCl (Atarax) 50 mg Q6H PRN PO ITCHING/ANXIETY Last administered on 09/12/16 18:17; Start 07/08/16 at 18:15 Famotidine (Pepcid) 10 mg BID PO Last administered on 07/23/16 08:56; Start at 21:00; Stop 09/08/16 at 10:36; Status DC Miscellaneous (Pill Splitter) 1 ea UNSCH PRN OTHER SEE LABEL COMMENTS Last administered on 07/11/16 08:23; Start 07/09/16 at 15:45 Potassium Chloride (KCl) 10 meq ONCE ONCE PO Last administered on 07/10/16 17 :52; Start 07/10/16 at 17:30; Stop 07/10/16 at 17:31; Status DC Potassium Chloride (KCl) 10 meq ONCE ONCE PO Last administered on 07/11/16 11 :38; Start 07/11/16 at 11:30; Stop 07/11/16 at 11:31; Status DC Potassium Chloride (KCl) 20 meq ONCE ONCE PO Last administered on 07/13/16 11 :46; Start 07/13/16 at 12:00; Stop 07/13/16 at 12:01; Status DC Nystatin (Mycostatin Cream) 1 applic Q6HR TOPICAL Last administered on 23:11; Start 07/13/16 at 13:30; Stop 08/04/16 at 10:02; Status DC Mupirocin (Bactroban 2% Cream) 1 applic Q12HR TOPICAL Last administered on 09/16 09:28; Start 07/13/16 at 13:30 Nystatin (Mycostatin Liq) 5 ml QID SWISH-SWAL Last administered on 07/27/16 10 :16; Start 07/14/16 at 18:00; Stop 07/28/16 at 17:59; Status DC Promethazine HCl (Phenergan Inj) 25 mg ONCE ONCE IM Last administered on 21:30; Start 07/25/16 at 21:30; Stop 07/25/16 at 21:31; Status DC Metronidazole (Flagyl) 500 mg Q8HR PO ; Start 07/26/16 at 16:15; Stop 07/26/16 at 16:24; Status DC Vancomycin HCl (VANCOMYCIN for oral use only) 250 mg QID PO Last administered on 08/12/16 12:32; Start 07/26/16 at 18:00; Stop 08/12/16 at 14:30; Status DC Metoclopramide HCl 10 mg 10 mg ACHS PRN PO NAUSEA OR VOMITING Last administered on 07/31/16 22:02; Start 07/26/16 at 16:30; Stop 08/07/16 at 14:14 ; Status DC Magnesium Sulfate/ Dextrose (Magnesium Sulfate 1 Gm Premix) 100 ml @ 100 mls/ hr Q1H IV Last administered on 07/30/16 21:21; Start 07/30/16 at 18:00; Stop 07/30/16 at 19:59; Status DC Potassium Chloride (KCl) 60 meq ONCE ONCE PO Last administered on 07/30/16 18: 46; Start 07/30/16 at 17:15; Stop 07/30/16 at 17:16; Status DC Potassium Chloride (KCl) 40 meq ONCE ONCE PO Last administered on 08/05/16 15 :04; Start 08/05/16 at 14:30; Stop 08/05/16 at 14:31; Status DC Acetaminophen/ Hydrocodone Bitart ([place] 10-325 Mg) 1 tab Q4H PRN PO pain 6-10 Last administered on 08/07/16 09:45; Start 08/05/16 at 16:15; Stop 08/07/16 at 14:11; Status DC Morphine Sulfate (Morphine Inj) 2 mg Q3H PRN IV PUSH breakthrough pain; Start 08/05/16 at 16:15; Stop 08/06/16 at 15:49; Status DC Ketorolac Tromethamine (Toradol Inj) 15 mg Q6HR IV PUSH Last administered on 17:15; Start 08/06/16 at 18:00; Stop 08/09/16 at 00:01; Status DC Metoclopramide HCl (Reglan Inj) 5 mg TIDAC IV PUSH Last administered on 15:16; Start 08/07/16 at 17:00; Stop 09/13/16 at 17:59; Status DC Senna/Docusate Sodium (Leti-Colace) 2 tab BID PO Last administered on 09:52; Start 08/09/16 at 12:15; Stop 09/11/16 at 18:29; Status DC Potassium Chloride (KCl) 40 meq ONCE ONCE PO Last administered on 08/09/16 12 :54; Start 08/09/16 at 12:30; Stop 08/09/16 at 12:31; Status DC Vancomycin HCl (VANCOMYCIN for oral use only) 500 mg QID PO Last administered on 08/18/16 21:37; Start 08/12/16 at 18:00; Stop 08/19/16 at 08:47; Status DC Lisinopril (Prinivil) 10 mg DAILY PO Last administered on 09/10/16 09:27; Start 08/14/16 at 09:00 Potassium Chloride (KCl) 30 meq ONCE ONCE PO Last administered on 08/14/16 22 :24; Start 08/14/16 at 19:00; Stop 08/14/16 at 19:01; Status DC Dronabinol (Marinol) 2.5 mg ONCE ONCE PO Last administered on 08/15/16 14:15 ; Start 08/15/16 at 12:45; Stop 08/15/16 at 12:46; Status DC Dronabinol (Marinol) 5 mg BID@11,16 PO Last administered on 09/10/16 16:43; Start 08/15/16 at 16:00 Vancomycin HCl (VANCOMYCIN for oral use only) 250 mg Q12HR PO Last administered on 08/20/16 09:46; Start 08/19/16 at 09:00; Stop 08/20/16 at 16:09 ; Status DC Vancomycin HCl (VANCOMYCIN for oral use only) 250 mg Q6HR PO Last administered on 08/20/16 17:04; Start 08/20/16 at 18:00; Stop 08/20/16 at 19:11; Status DC Fidaxomicin (Dificid) 200 mg BID PO Last administered on 08/30/16 09:41; Start 08/20/16 at 21:00; Stop 08/30/16 at 20:59; Status DC Cholestyramine Resin 4 gm 4 gm Q8HR PO Last administered on 09/04/16 20:52; Start 08/23/16 at 14:00; Stop 09/08/16 at 10:36; Status DC Magnesium Sulfate/ Dextrose 100 ml @ 100 mls/hr Q1H IV Last administered on 12:18; Start 08/24/16 at 09:30; Stop 08/24/16 at 11:29; Status DC Potassium Chloride 100 ml @ 50 mls/hr Q2H IV Last administered on 08/24/16 12: 22; Start 08/24/16 at 09:30; Stop 08/24/16 at 13:29; Status DC Potassium Chloride 100 ml @ 50 mls/hr ONCE ONCE IV Last administered on 22:23; Start 08/24/16 at 19:00; Stop 08/24/16 at 20:59; Status DC Potassium Chloride 100 ml @ 50 mls/hr Q2H IV Last administered on 08/25/16 12: 53; Start 08/25/16 at 09:15; Stop 08/25/16 at 13:14; Status DC Potassium Chloride 100 ml @ 100 mls/hr Q1H IV Last administered on 08/26/16 16 :48; Start 08/26/16 at 13:00; Stop 08/26/16 at 16:06; Status DC Sodium Chloride 500 ml @ 500 mls/hr BOLUS ONCE IV Last administered on 01:34; Start 08/29/16 at 01:30; Stop 08/29/16 at 02:29; Status DC Potassium Chloride/Sodium Chloride (NS + KCl 20 Meq Inj) 1,000 ml @ 70 mls/hr [id number] IV Last administered on 08/30/16 11:47; Start 08/30/16 at 10:00; Stop at 00:17; Status DC Polyethylene Glycol/ Electrolytes (Colyte Liq) 4,000 ml ONCE ONCE PO Last administered on 08/31/16 18:54; Start 08/31/16 at 18:15; Stop 08/31/16 at 18:16 ; Status DC Magnesium Citrate (Citroma Liq) 600 ml NOW ONCE PO Last administered on 05:48; Start 09/01/16 at 05:45; Stop 09/01/16 at 05:46; Status DC Sodium Biphosphate/ Sodium Phosphate 266 ml 266 ml ONCE ONCE RECTAL Last administered on 09/01/16 08:48; Start 09/01/16 at 08:00; Stop 09/01/16 at 08:01 ; Status DC Lactated Ringer's 1,000 ml @ 30 mls/hr Q24H PRN IV SEE LABEL COMMENTS; Start at 08:45; Stop 09/01/16 at 12:08; Status DC Sodium Chloride (NS 500 ml Inj) 500 ml @ 30 mls/hr [id number] PRN IV SEE LABEL COMMENTS; Start 09/01/16 at 08:45; Stop 09/01/16 at 12:08; Status DC Metoprolol Tartrate (Lopressor) 25 mg ZONE MAINTENANCE TECHNICIAN PRN PO SEE LABEL COMMENTS; Start 09/01/16 at 08:45; Stop 09/04/16 at 08:44; Status DC Povidone Iodine (Betadine 5% Antisepsis Kit) 1 applic ZONE MAINTENANCE TECHNICIAN PRN EACH NARE SEE LABEL COMMENTS; Start 09/01/16 at 08:45; Stop 09/04/16 at 08:44; Status DC Chlorhexidine Gluconate (Chlorhexidine 2% Cloth) 3 pack ZONE MAINTENANCE TECHNICIAN PRN TOPICAL SEE LABEL COMMENTS; Start 09/01/16 at 08:45; Stop 09/04/16 at 08:44; Status DC Insulin Human Regular (NovoLIN R INJ) See Protocol Table ... ZONE MAINTENANCE TECHNICIAN PRN SQ SEE PROTOCOL TABLE; Start 09/01/16 at 08:45; Stop 09/04/16 at 08:44; Status DC Pantoprazole Sodium 40 mg 40 mg DAILY PO Last administered on 09/07/16 09:55; Start 09/01/16 at 12:00; Stop 09/08/16 at 10:36; Status DC Sodium Chloride 500 ml @ 500 mls/hr BOLUS ONCE IV Last administered on 12:00; Start 09/01/16 at 12:00; Stop 09/01/16 at 12:59; Status DC Potassium Chloride/Sodium Chloride (NS + KCl 20 Meq Inj) 1,000 ml @ 84 mls/hr [id number] IV Last administered on 09/02/16 22:07; Start 09/01/16 at 12:00; Stop 09/03/16 at 21:17; Status DC Miscellaneous Information ALL NURSING DEPARTME... UNSCH PRN .XX SEE LABEL COMMENTS; Start 09/01/16 at 13:00; Stop 09/02/16 at 12:59; Status DC Propofol (Diprivan 200 Mg/20 ml Inj) 160 mg STK-MED ONCE IV ; Start 09/01/16 at 10:57; Stop 09/01/16 at 13:10; Status DC Pantoprazole Sodium (Protonix) 40 mg BID PO Last administered on 09/10/16 20: 43; Start 09/08/16 at 21:00; Stop 09/13/16 at 17:09; Status DC Sucralfate (Carafate Liq) 1 gm ACHS PO Last administered on 09/14/16 20:46; Start 09/08/16 at 11:00 Magnesium Citrate (Citroma Liq) 300 ml ONCE ONCE PO Last administered on 13:16; Start 09/08/16 at 12:00; Stop 09/08/16 at 12:40; Status DC Magnesium Citrate (Citroma Liq) 300 ml ONCE ONCE PO Last administered on 17:48; Start 09/08/16 at 18:00; Stop 09/08/16 at 18:01; Status DC Bisacodyl (Dulcolax Ec) 10 mg DAILY@18, PO Last administered on 09/08/16 22: 33; Start 09/08/16 at 18:00; Stop 09/08/16 at 21:01; Status DC Diatrizoate Meglum/ Diatrizoate Sod ( Gastroview Liq) 18 ml ONCE ONCE PO ; Start 09/08/16 at 18:24; Stop 09/08/16 at 19:12; Status DC Scopolamine (Transderm-Scop 1.5 Mg Patch.72 Hr) 1 patch Q3D T-DERMAL Last administered on 09/14/16 19:55; Start 09/11/16 at 18:00 Miscellaneous Information 1 1 Q3D T-DERMAL Last administered on 09/14/16 18:00 ; Start 09/14/16 at 18:00 Sodium Chloride 500 ml @ 50 mls/hr Q10H IV Last administered on 09/11/16 18: 47; Start 09/11/16 at 18:15; Stop 09/12/16 at 04:14; Status DC Potassium Chloride 100 ml @ 100 mls/hr Q1H IV Last administered on 09/12/16 15:00; Start 09/12/16 at 13:00; Stop 09/12/16 at 15:59; Status DC Potassium Chloride/Dextrose/ Sod Cl (D5-1/2 NS + KCl 20 Meq Inj) 1,000 ml @ 84 mls/hr [id number] IV Last administered on 09/15/16 11:38; Start 09/12/16 at 12:15 Potassium Chloride 30 meq 30 meq ONCE ONCE PO ; Start 09/13/16 at 09:15; Stop 09/13/16 at 10:45; Status DC Potassium Chloride (KCl 10 Meq Premix Inj) 100 ml @ 100 mls/hr BOLUS ONCE IV Last administered on 09/13/16 13:12; Start 09/13/16 at 10:45; Stop 09/13/16 at 11:44; Status DC Pantoprazole Sodium (Protonix Inj) 40 mg Q12H IV PUSH Last administered on 09/16 06:00; Start 09/13/16 at 18:00 Promethazine HCl (Phenergan) 12.5 mg Q6H PRN PO nausea; Start 09/13/16 at 18:00 Ondansetron HCl 8 mg 8 mg Q6H PRN IV PUSH nausea; Start 09/15/16 at 01:45; Status UNV Ondansetron HCl 8 mg/Dextrose 54 ml @ 216 mls/hr Q6H PRN IV PUSH NAUSEA OR VOMITING; Start 09/14/16 at 23:45; Stop 09/15/16 at 05:36; Status DC Ondansetron HCl/ Dextrose (Zofran Inj/D5W Inj) 54 ml @ 216 mls/hr Q6H PRN IV NAUSEA OR VOMITING Last administered on 09/15/16 18:34; Start 09/15/16 at 05:36 A/P Problem List: (1) Total self-care deficit ICD Code: R41.89 Status: Acute (2) Sacral pressure ulcer ICD Code: L89.159 Status: Chronic (3) Subclinical hypothyroidism ICD Code: E03.9 Status: Acute (4) Radiculopathy of lumbar region ICD Code: M54.16 Status: Acute Assessment and Plan Mrs. Arreola is a 70-year-old female with a known history of hypertension, obesity , arthritis, status post gastric bypass who presented to the ED on 06/23/16 with complaints of generalized weakness for two weeks. Apparently patient had been discharged on 06/08/16 with home health care and sustained a fall at home with progressive weakness. Supposedly she is wheelchair bound at home and unable to transfer independently. Poor appetite secondary to nausea and vomiting: Encourage PO intake as tolerated. Zofran IV PRN. Continue IV Reglan. Continue Marinol for appetite stimulant. Dietitian consulted for calorie count, may need to consider PEG tube for supplemental feeding. Full liquids per GI. Scopolamine patch added. BMP with signs of hemoconcentration/dehydration. On D5. Consult palliative care. Continue management per GI. unsure what else can be offered in hospital. she may need to go to [facility] facility to see if anything can be offered, but patient declined. patient stated okay with PEG and that is scheduled for today. Hypokalemia: resolved. Epigastric pain likely secondary to ulcer: Continue Protonix. Sacral pressure ulcer, resolved: Encourage repositioning patient every 2 hours. Specialty mattress continued. C. difficile diarrhea: Diarrhea is currently improved. Last BM 09/05. Last Tox PCR positive on 08/19. Has previously been treated with Flagyl, oral vancomycin. ID previously consulted on 08/20 with recommendations to discontinue Vanco and begin Dificid, completed course of Dificid. Generalized weakness: Continue physical therapy. Will need nursing facility at discharge, case management following, but patient declined. she stated she wants to go home. Lumbar radiculopathy: Neurosurgery signed off, no surgical intervention recommended at this time. Control pain [place] PRN per pain scale. Anemia, GI bleed: Stool Hemoccult is positive on 08/30. Status post EGD, which showed esophageal ulcer. S/p transfusion 2 units on 09/02. Hb stable. Other chronic medical history includes osteoarthritis, CKD stage III are stable at this time. DVT prophylaxis: SCDs/TEDs. Discharge Planning patient scheduled for PEG today. Once that is done she will need TFs order so that she will have that when she gets home. If she tolerates TFs patient can be d/c to home with home health. d/c case management in regards to this. Problem Qualifiers (1) Sacral pressure ulcer: Qualified Code: L89.151 - Decubitus ulcer of sacral region, stage 1 Paola Carballo MD Sep 16, 2016 09:53
[2016-09-16 10:49] LABS: APTT (PATIENT) 21.2 SEC (24.3-30.1); INTERNATIONAL NORMALIZED RATIO 1.1 RATIO; PROTHROMBIN TIME - PATIENT 11.8 SEC (9.8-11.6)
[2016-09-16] MEDS: DRONABINOL 5 MG CAP PO SCH ×2 (10:53→16:00)
[2016-09-16] MEDS: ONDANSETRON INJ 8 MG in DEXTROSE 5% IN WATER INJ 50 ML IV PRN ×4 (11:23→21:53)
[2016-09-16] MEDS: D5-1/2 NS + KCL 20 MEQ INJ 1,000 ML IV SCH ×2 (11:23→23:41)
--- NOTE | 2016-09-16 15:25 | HHI.HCPN ---
Reason for visit a. To assist with evaluation and management of symptoms including: nausea, fatigue, diarrhea, pain, weakness b. To assist medical decision maker(s) with: better understanding of current medical conditions; weighing benefits/burdens of medical treatment options; making medical treatment decisions. . (Ro Li) Subjective/Interval History Meeting with patient and at 's request. Voicemail received from on his arrival. Discussed stable medical findings, labs, specialty evaluations. Remains nauseated with any movement. Refusing all PO meds, food and fluid intake d/t nausea. Some mild confusion noted as patient stated she wanted to get home to her 2 cats, while her stated they only have one, but did have 2 some years ago. She in NPO pending placement of GJ tube. Patient and both seem to have some basic comprehension of medical issues and both feel certain she can be managed at home. Goals remain aggressive. . Family/friend interactions endorses that he will be taking care of her at home with home health support and is requesting physical therapy. She is refusing SNF and he agrees with her. Hospital bed has been delivered to their home. Goals remain aggressive. (Ro Li) Advance Directives Living Will: Never completed Health Care Surrogate: Never completed Durable Power of Ear Nose Throat Physician: Never completed (Ro Li) Objective Vital Signs Date Time Temp Pulse Resp B/P Pulse Ox O2 Delivery O2 Flow Rate FiO2 09/16/16 12:05 97.2 78 18 123/60 99 09/16/16 08:05 79 09/16/16 07:55 96.6 80 18 127/60 98 09/16/16 04:11 97.3 77 18 137/66 97 09/16/16 00:34 96.7 83 18 159/89 96 09/15/16 21:20 97.6 80 18 124/63 96 09/15/16 17:51 96.6 79 20 123/67 96 Intake & Output 09/16/16 09/16/16 07:00 19:00 Intake Total 955 ml Balance 955 ml IV Total 955 ml # Voids 1 2 # Bowel Movements 0 Physical Exam CONSTITUTIONAL/GENERAL: This is a morbidly obese patient, lying in bed.in no apparent distress. TUBES/LINES/DRAINS: Right wrist PIV, SCD's ENT: Hearing grossly normal. Nose without bleeding or purulent drainage. Poor dentition, dry oral mucosa, no exudates or lesions seen. CARDIOVASCULAR: Regular rate and rhythm without murmurs, gallops, or rubs. No JVD. Peripheral pulses symmetric. RESPIRATORY/CHEST: Symmetric, unlabored respirations. Clear to auscultation. Breath sounds equal bilaterally. No wheezes, rales, or rhonchi. GASTROINTESTINAL: Abdomen obese, soft, non-tender, nondistended. Bowel sounds present, hypoactive. MUSCULOSKELETAL: Extremities without clubbing, cyanosis, or edema. No joint tenderness or effusion noted. NEUROLOGICAL: Awake and alert, oriented with mild memory impairment. Motor and sensory grossly within normal limits. Follows commands. Moves all extremities. PSYCHIATRIC: No obvious anxiety/depression. . (Ro Li) Diagnostic Tests Laboratory Laboratory Tests Test 09/13/16 09/14/16 09/15/16 09/15/16 15:46 09:48 07:10 12:31 Potassium Level 3.9 MEQ/L 4.0 MEQ/L 4.2 MEQ/L 5.0 MEQ/L (3.5-5.1) (3.5-5.1) (3.5-5.1) (3.5-5.1) Total Bilirubin 1.0 MG/DL (0.2-1.0) Direct Bilirubin 0.6 MG/DL (0.0-0.2) Indirect Bilirubin 0.4 MG/DL (0.0-0.8) Aspartate Amino Transf 113 U/L (15-37) (AST/SGOT) Alanine Aminotransferase 27 U/L (10-53) (ALT/SGPT) Alkaline Phosphatase 171 U/L (45-117) Total Protein 4.8 GM/DL (6.4-8.2) Albumin 1.6 GM/DL (3.4-5.0) Lipase 168 U/L (73-393) Sodium Level 145 MEQ/L 146 MEQ/L 144 MEQ/L (136-145) (136-145) (136-145) Chloride Level 115 MEQ/L 115 MEQ/L 112 MEQ/L (98-107) (98-107) (98-107) Carbon Dioxide Level 22.0 MEQ/L 22.9 MEQ/L 23.7 MEQ/L (21.0-32.0) (21.0-32.0) (21.0-32.0) Anion Gap 8 MEQ/L (5-15) 8 MEQ/L (5-15) 8 MEQ/L (5-15) Blood Urea Nitrogen 22 MG/DL (7-18) 23 MG/DL (7-18) 23 MG/DL (7-18) Creatinine 1.04 MG/DL 1.02 MG/DL 0.99 MG/DL (0.50-1.00) (0.50-1.00) (0.50-1.00) Estimat Glomerular Filtration 52 ML/MIN (>89) 54 ML/MIN (>89) 55 ML/MIN (>89) Rate Random Glucose 91 MG/DL 100 MG/DL 78 MG/DL (74-106) (74-106) (74-106) Calcium Level 8.4 MG/DL 8.1 MG/DL 8.5 MG/DL (8.5-10.1) (8.5-10.1) (8.5-10.1) Magnesium Level 2.0 MG/DL (1.5-2.5) Test 09/16/16 09:57 Prothrombin Time 11.8 SEC (9.8-11.6) Prothromb Time International 1.1 RATIO Ratio Activated Partial 21.2 SEC Thromboplast Time (24.3-30.1) (Ro Li) Result Diagram: 09/12/16 1058 09/15/16 1231 Procedures Colonoscopy 09/01/16 EGD 09/01/16 (Ro Li) Assessment and Plan Disease Oriented Problem List: (1) Weakness (2) Nausea (3) Radiculopathy of lumbar region (4) Fatigue (5) Diarrhea Symptom Scale: (1) Weakness 0-10 Scale: Unable to quantify (2) Diarrhea 0-10 Scale: Unable to quantify (3) Fatigue 0-10 Scale: Unable to quantify (4) Radiculopathy of lumbar region 0-10 Scale: Unable to quantify (5) Nausea 0-10 Scale: Unable to quantify Pertinent Non-Medical Issues Psychosocial: 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 Lived at home with as her commodity management specialist with assistance from son. Refusing SNF or specialty, stating she will return home. previously stated he could not care for her at home, currently says he can care for her if he has a hospital bed at home. Spiritual: Previously attended the gnosticism at [facility]. Remains in contact with skip loader and friends. Declines visit from mold breaker in hospital. Legal: No advanced directive, aware and agreeable to her being her legal decision maker. Ethical issues impacting care: . Important Contacts , Adrian [phone], home [phone] Daughter - Rut Troncoso, [place], [place]. Prognosis Medically, no terminal conditions have been identified, however, given her current state of health, continued decline is likely. Code Status: Full Code (By default) Plan * Legal decision maker - patient appears able to make her own decisions at this time and wants her to be her legal decision maker in the event that she is unable to participate, and per [place] Statutes, he would be the default decision maker. She also has a son and a daughter, if becomes incapacitated. She does not have a living will, MDPOA or other advanced directives. * Goals - aggressive at this time. She states she wants to go home and resume her previous activities, with the assistance of her , home health care and PT. Met with patient and spouse today. Goals remain aggressive per that conversation. * CODE STATUS - FULL CODE. Symptoms: * Weakness - She has refused PT due to diarrhea and is refusing SNF for rehabilitation. She states that the weakness she presented with is improving and that she wants to go home with her and [facility] to include PT at home. * Nausea - She continues to be nauseated with dry heaves and occasional emesis in spite of receiving IV reglan scheduled, IV zofran PRN, which she uses about once daily and says is the most effective. She has been refusing her carafate, and other PO meds. She is NPO pending GJ tube placement, receiving IV NaCl for hydration. The nausea is considered by GI to be secondary to gastroparesis, otherwise workups show no clear etiology. Phenergan PRN, not using. * Back pain - she denies any back pain at this visit. Will continue to monitor. * Fatigue - she denies any fatigue at this visit, but appears weak and unable to care for herself. Will continue to monitor. * Diarrhea - she states the diarrhea is improving today but has had several episodes yesterday. Last PCR 08/19 was positive. Last dose of Dificid was 08/30. PCR ordered for 09/10 then cancelled. GI following. Palliative care will continue to follow during hospital course as condition evolved, to assist patient/decision-maker with understanding of medical conditions, weighing benefits/burdens of treatment options, for clarification of goals of treatment. Additionally, we will assist with any symptoms of palliative concern. (Ro Li) Attestation To help prompt me to consider important information that might be impacting today's encounter and assessment, information from prior notes written by myself or my colleagues may have been "brought forward" into today's note. My signature on this note, however, is an attestation that I personally performed the exam, history, and/or decision-making noted today, and, unless otherwise indicated, the interactions with patient, family, and staff as well as the review of records all occurred today. I also attest that the listed assessment and stated plan reflect my best clinical judgment today based on the combination of historical information, prior notes, and today's exam/ interactions. When time spent is documented, it refers only to time spent today by the signer, or if indicated, combined time spent today by collaborating physician/nurse practitioner. (Ro Li) Collaborating MD Comments dual visit grace ESCOBAR. agree with above documentation Pt is alert, mostly oriented. She seems to confuse details/forgetful at times. present. Patient continues to endorse that she is hoping to get home with her and at some point she should be held to stand up and pivot to a bedside commode again. She continues to have intermittent episodes of nausea especially when she tries to take anything orally. She is in agreement with proceeding with a GJ tube in hopes of providing her calories that she needs without her feeling ill because of it. She then wants to go home with her with home health, she is confident he can continue to care for her in the home setting. 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 CONSTITUTIONAL/GENERAL: This is a morbidly obese patient, lying in bed.in no apparent distress. RESPIRATORY/CHEST: Symmetric, unlabored respirations on room air. GASTROINTESTINAL: Abdomen obese, soft, non-tender, nondistended. Bowel sounds present, hypoactive. MUSCULOSKELETAL: Extremities without clubbing, cyanosis, or edema. No joint tenderness or effusion noted. NEUROLOGICAL: Awake and alert, oriented with mild forgetfulness/confuses details.Follows commands. Moves all extremities. PSYCHIATRIC: No obvious anxiety/depression. . (Gerri Grant) Ro Li Sep 16, 2016 15:25 Gerri Grant Sep 16, 2016 16:55
[2016-09-16] MEDS: SERTRALINE HCL 100 MG TAB PO SCH (21:00)
[2016-09-16] MEDS: CETIRIZINE HCL 10 MG TAB PO SCH (21:00)
[2016-09-17] VITALS (7 sets, daily range): BP systolic 114–148; BP diastolic 62–88; PULSE 82–90; RESP 18–20; TEMP 96.2–98.7; O2SAT 96–100
[2016-09-17] MEDS: PANTOPRAZOLE SODIUM 40 MG VIAL IV PUSH SCH ×2 (06:33→17:20)
[2016-09-17] MEDS: SUCRALFATE 1 GM/10 ML CUP PO SCH ×4 (07:00→21:45)
[2016-09-17] MEDS: LISINOPRIL 10 MG TAB PO SCH (08:20)
[2016-09-17] MEDS: SODIUM CHLORIDE 0.9% FLUSH 5 ML FLUSH FLUSH SCH ×2 (08:20→21:45)
[2016-09-17] MEDS: ASPIRIN EC 81 MG TABEC PO SCH (08:21)
[2016-09-17] MEDS: CALAMINE/PRAMOXINE LOTION 180 ML BTL TOPICAL SCH ×2 (08:21→21:46)
[2016-09-17] MEDS: LACTOBACILLUS ACIDOPHILUS TAB PO SCH ×2 (08:21→21:42)
[2016-09-17] MEDS: MUPIROCIN 2% CREAM 15 GM TOPICAL SCH ×2 (08:22→21:46)
--- NOTE | 2016-09-17 09:58 | HHI.PR ---
Subjective Remarks f/u for nausea patient has no complaints. Continues to feel nauseated but stable. she stated she is waiting for GJ. no other complaints. Objective Vitals Vital Signs Date Time Temp Pulse Resp B/P Pulse Ox O2 Delivery O2 Flow Rate FiO2 09/17/16 07:35 96.2 86 20 114/71 96 09/17/16 05:05 98.6 88 20 146/88 99 09/17/16 00:40 98.7 86 20 148/72 96 09/16/16 22:42 80 09/16/16 20:25 97.4 84 22 156/68 95 09/16/16 16:24 97.2 81 18 125/63 97 09/16/16 12:05 97.2 78 18 123/60 99 I/O 09/16/16 09/16/16 09/16/16 09/17/16 09/17/16 09/17/16 07:00 15:00 23:00 07:00 15:00 23:00 Intake Total 955 ml 420 ml Output Total 0 ml Balance 955 ml 420 ml Intake Oral 420 ml IV Total 955 ml Output Urine Total 0 ml # Voids 1 2 # Bowel Movements 0 Result Diagram: 09/15/16 1231 Objective Remarks Gen morbidly obese CV RRR. no r/m/g abd: soft NDNT. no peritoneal signs. Ext 5/5 LE strength Procedures none Medications and IVs Current Medications IV Flush 2 ml 2 ml UNSCH PRN IVF FLUSH AFTER USING IV ACCESS; Start 06/23/16 at 14:15; Stop 06/23/16 at 20:00; Status DC Sodium Chloride 1,000 ml @ 1,000 mls/hr Q1H ONCE IV Last administered on 15:37; Start 06/23/16 at 14:02; Stop 06/23/16 at 15:01; Status DC Ceftriaxone Sodium/Sodium Chloride (Rocephin Inj/NS Inj) 100 ml @ 200 mls/hr ONCE ONCE IV Last administered on 06/23/16 18:25; Start 06/23/16 at 18:00; Stop 06/23/16 at 18:29; Status DC IV Flush (NS Flush) 2 ml UNSCH PRN FLUSH FLUSH AFTER USING IV ACCESS Last administered on 07/25/16 18:44; Start 06/23/16 at 20:00 IV Flush (NS Flush) 2 ml BID FLUSH Last administered on 09/16/16 21:00; Start 06/23/16 at 21:00 Enoxaparin Sodium (Lovenox Inj) 40 mg Q24H SQ Last administered on 08/31/16 09 :20; Start 06/24/16 at 09:00; Status Hold Naloxone HCl 0.4 mg 0.4 mg UNSCH PRN IV SEE LABEL COMMENTS; Start 06/23/16 at 20:00 Levofloxacin/ Dextrose (Levaquin 750 Mg Premix Inj) 150 ml @ 100 mls/hr Q24H IV Last administered on 06/23/16 22:06; Start 06/23/16 at 21:00; Stop 06/24/16 at 09:56; Status DC Acetaminophen/ Hydrocodone Bitart ([place] 5-325 Mg) 1 tab Q6H PRN PO pain >5 Last administered on 06/23/16 22:31; Start 06/23/16 at 22:30; Stop 06/24/16 at 09:59; Status DC Nitrofurantoin Macrocrystals (Macrobid) 100 mg BIDPC PO Last administered on 10:28; Start 06/24/16 at 18:00; Stop 06/25/16 at 13:15; Status DC Amlodipine Besylate (Norvasc) 10 mg DAILY PO Last administered on 09/10/16 09: 27; Start 06/24/16 at 10:00 Aspirin (Ecotrin Ec) 81 mg DAILY PO Last administered on 09/10/16 09:27; Start 06/25/16 at 09:00 Famotidine (Pepcid) 20 mg BID PO Last administered on 07/09/16 09:23; Start at 21:00; Stop 07/09/16 at 15:35; Status DC Furosemide (Lasix) 20 mg DAILY PO Last administered on 09/10/16 09:28; Start 06/25/16 at 09:00; Status Hold Lisinopril (Prinivil) 20 mg DAILY PO Last administered on 08/13/16 09:45; Start 06/24/16 at 10:00; Stop 08/13/16 at 19:10; Status DC Meloxicam (Mobic) 7.5 mg BID PO Last administered on 07/08/16 10:10; Start 06/24/16 at 21:00; Stop 07/08/16 at 17:43; Status DC Potassium Chloride (KCl) 10 meq DAILY PO Last administered on 07/09/16 09:23; Start 06/25/16 at 09:00; Stop 07/09/16 at 14:35; Status DC Sertraline HCl (Zoloft) 200 mg HS PO Last administered on 09/16/16 21:00; Start 06/24/16 at 21:00 Diphenhydramine HCl (Benadryl) 25 mg Q6H PRN PO itching Last administered on 11:45; Start 06/25/16 at 18:00; Stop 06/30/16 at 14:15; Status DC Acetaminophen (Tylenol) 650 mg Q6H PRN PO PAIN SCALE 1 TO 2; Start 06/26/16 at 16:15 Acetaminophen/ Hydrocodone Bitart ([place] 5-325 Mg) 1 tab Q4H PRN PO PAIN SCALE 6 TO 10 Last administered on 09/12/16 18:16; Start 06/26/16 at 16:15 Acetaminophen/ Hydrocodone Bitart ([place] 7.5-325 Mg) 1 tab Q4H PRN PO PAIN SCALE 6 TO 10 Last administered on 08/05/16 15:19; Start 06/26/16 at 16:15; Stop 08/05/16 at 16:07; Status DC Calamine/Pramoxine (Caladryl Lotion) 1 applic Q12HR TOPICAL Last administered on 09/17/16 08:21; Start 06/27/16 at 09:00 Trimethoprim/ Sulfamethoxazole (Bactrim 400-80 Mg) 1 tab Q12HR PO Last administered on 07/08/16 10:12; Start 06/28/16 at 12:00; Stop 07/08/16 at 11:59 ; Status DC Cephalexin Monohydrate (Keflex) 250 mg Q8HR PO Last administered on 07/08/16 05:31; Start 06/28/16 at 14:00; Stop 07/08/16 at 13:59; Status DC Cetirizine HCl (ZyrTEC) 10 mg HS PO Last administered on 09/10/16 20:42; Start 06/29/16 at 21:00 Prednisone (Deltasone) 40 mg DAILY PO Last administered on 07/02/16 10:56; Start 06/29/16 at 10:00; Stop 07/02/16 at 09:59; Status DC Hydroxyzine HCl (Atarax) 10 mg Q6H PRN PO itching/anxiety Last administered on 07/02/16 11:03; Start 06/30/16 at 14:15; Stop 07/02/16 at 12:08; Status DC Hydroxyzine HCl (Atarax) 25 mg Q6H PRN PO ITCHING/ANXIETY Last administered on 07/08/16 17:16; Start 07/02/16 at 12:15; Stop 07/08/16 at 17:43; Status DC Metronidazole (Flagyl) 500 mg Q8HR PO Last administered on 07/17/16 21:05; Start 07/04/16 at 02:58; Stop 07/18/16 at 02:57; Status DC Lactobacillus Acidophilus (Lactinex) 1 tab Q12HR PO Last administered on 20:48; Start 07/04/16 at 21:00 Naloxone HCl (Narcan Inj) 0.4 mg UNSCH X1 PRN IV PUSH RESP DEPRESSION OR HYPOTENSION; Start 07/07/16 at 08:00; Stop 07/09/16 at 07:59; Status DC Ondansetron HCl (Zofran Inj) 4 mg Q6H PRN IV PUSH nausea Last administered on 17:08; Start 07/07/16 at 13:45; Stop 09/14/16 at 23:37; Status DC Nystatin (Mycostatin Cream) 1 applic Q12HR TOPICAL Last administered on 10:54; Start 07/07/16 at 15:00; Stop 07/13/16 at 13:48; Status DC Hydroxyzine HCl (Atarax) 50 mg Q6H PRN PO ITCHING/ANXIETY Last administered on 09/12/16 18:17; Start 07/08/16 at 18:15 Famotidine (Pepcid) 10 mg BID PO Last administered on 07/23/16 08:56; Start at 21:00; Stop 09/08/16 at 10:36; Status DC Miscellaneous (Pill Splitter) 1 ea UNSCH PRN OTHER SEE LABEL COMMENTS Last administered on 07/11/16 08:23; Start 07/09/16 at 15:45 Potassium Chloride (KCl) 10 meq ONCE ONCE PO Last administered on 07/10/16 17 :52; Start 07/10/16 at 17:30; Stop 07/10/16 at 17:31; Status DC Potassium Chloride (KCl) 10 meq ONCE ONCE PO Last administered on 07/11/16 11 :38; Start 07/11/16 at 11:30; Stop 07/11/16 at 11:31; Status DC Potassium Chloride (KCl) 20 meq ONCE ONCE PO Last administered on 07/13/16 11 :46; Start 07/13/16 at 12:00; Stop 07/13/16 at 12:01; Status DC Nystatin (Mycostatin Cream) 1 applic Q6HR TOPICAL Last administered on 23:11; Start 07/13/16 at 13:30; Stop 08/04/16 at 10:02; Status DC Mupirocin (Bactroban 2% Cream) 1 applic Q12HR TOPICAL Last administered on 09/17 08:22; Start 07/13/16 at 13:30 Nystatin (Mycostatin Liq) 5 ml QID SWISH-SWAL Last administered on 07/27/16 10 :16; Start 07/14/16 at 18:00; Stop 07/28/16 at 17:59; Status DC Promethazine HCl (Phenergan Inj) 25 mg ONCE ONCE IM Last administered on 21:30; Start 07/25/16 at 21:30; Stop 07/25/16 at 21:31; Status DC Metronidazole (Flagyl) 500 mg Q8HR PO ; Start 07/26/16 at 16:15; Stop 07/26/16 at 16:24; Status DC Vancomycin HCl (VANCOMYCIN for oral use only) 250 mg QID PO Last administered on 08/12/16 12:32; Start 07/26/16 at 18:00; Stop 08/12/16 at 14:30; Status DC Metoclopramide HCl 10 mg 10 mg ACHS PRN PO NAUSEA OR VOMITING Last administered on 07/31/16 22:02; Start 07/26/16 at 16:30; Stop 08/07/16 at 14:14 ; Status DC Magnesium Sulfate/ Dextrose (Magnesium Sulfate 1 Gm Premix) 100 ml @ 100 mls/ hr Q1H IV Last administered on 07/30/16 21:21; Start 07/30/16 at 18:00; Stop 07/30/16 at 19:59; Status DC Potassium Chloride (KCl) 60 meq ONCE ONCE PO Last administered on 07/30/16 18: 46; Start 07/30/16 at 17:15; Stop 07/30/16 at 17:16; Status DC Potassium Chloride (KCl) 40 meq ONCE ONCE PO Last administered on 08/05/16 15 :04; Start 08/05/16 at 14:30; Stop 08/05/16 at 14:31; Status DC Acetaminophen/ Hydrocodone Bitart ([place] 10-325 Mg) 1 tab Q4H PRN PO pain 6-10 Last administered on 08/07/16 09:45; Start 08/05/16 at 16:15; Stop 08/07/16 at 14:11; Status DC Morphine Sulfate (Morphine Inj) 2 mg Q3H PRN IV PUSH breakthrough pain; Start 08/05/16 at 16:15; Stop 08/06/16 at 15:49; Status DC Ketorolac Tromethamine (Toradol Inj) 15 mg Q6HR IV PUSH Last administered on 17:15; Start 08/06/16 at 18:00; Stop 08/09/16 at 00:01; Status DC Metoclopramide HCl (Reglan Inj) 5 mg TIDAC IV PUSH Last administered on 15:16; Start 08/07/16 at 17:00; Stop 09/13/16 at 17:59; Status DC Senna/Docusate Sodium (Leti-Colace) 2 tab BID PO Last administered on 09:52; Start 08/09/16 at 12:15; Stop 09/11/16 at 18:29; Status DC Potassium Chloride (KCl) 40 meq ONCE ONCE PO Last administered on 08/09/16 12 :54; Start 08/09/16 at 12:30; Stop 08/09/16 at 12:31; Status DC Vancomycin HCl (VANCOMYCIN for oral use only) 500 mg QID PO Last administered on 08/18/16 21:37; Start 08/12/16 at 18:00; Stop 08/19/16 at 08:47; Status DC Lisinopril (Prinivil) 10 mg DAILY PO Last administered on 09/10/16 09:27; Start 08/14/16 at 09:00 Potassium Chloride (KCl) 30 meq ONCE ONCE PO Last administered on 08/14/16 22 :24; Start 08/14/16 at 19:00; Stop 08/14/16 at 19:01; Status DC Dronabinol (Marinol) 2.5 mg ONCE ONCE PO Last administered on 08/15/16 14:15 ; Start 08/15/16 at 12:45; Stop 08/15/16 at 12:46; Status DC Dronabinol (Marinol) 5 mg BID@11,16 PO Last administered on 09/10/16 16:43; Start 08/15/16 at 16:00 Vancomycin HCl (VANCOMYCIN for oral use only) 250 mg Q12HR PO Last administered on 08/20/16 09:46; Start 08/19/16 at 09:00; Stop 08/20/16 at 16:09 ; Status DC Vancomycin HCl (VANCOMYCIN for oral use only) 250 mg Q6HR PO Last administered on 08/20/16 17:04; Start 08/20/16 at 18:00; Stop 08/20/16 at 19:11; Status DC Fidaxomicin (Dificid) 200 mg BID PO Last administered on 08/30/16 09:41; Start 08/20/16 at 21:00; Stop 08/30/16 at 20:59; Status DC Cholestyramine Resin 4 gm 4 gm Q8HR PO Last administered on 09/04/16 20:52; Start 08/23/16 at 14:00; Stop 09/08/16 at 10:36; Status DC Magnesium Sulfate/ Dextrose 100 ml @ 100 mls/hr Q1H IV Last administered on 12:18; Start 08/24/16 at 09:30; Stop 08/24/16 at 11:29; Status DC Potassium Chloride 100 ml @ 50 mls/hr Q2H IV Last administered on 08/24/16 12: 22; Start 08/24/16 at 09:30; Stop 08/24/16 at 13:29; Status DC Potassium Chloride 100 ml @ 50 mls/hr ONCE ONCE IV Last administered on 22:23; Start 08/24/16 at 19:00; Stop 08/24/16 at 20:59; Status DC Potassium Chloride 100 ml @ 50 mls/hr Q2H IV Last administered on 08/25/16 12: 53; Start 08/25/16 at 09:15; Stop 08/25/16 at 13:14; Status DC Potassium Chloride 100 ml @ 100 mls/hr Q1H IV Last administered on 08/26/16 16 :48; Start 08/26/16 at 13:00; Stop 08/26/16 at 16:06; Status DC Sodium Chloride 500 ml @ 500 mls/hr BOLUS ONCE IV Last administered on 01:34; Start 08/29/16 at 01:30; Stop 08/29/16 at 02:29; Status DC Potassium Chloride/Sodium Chloride (NS + KCl 20 Meq Inj) 1,000 ml @ 70 mls/hr [id number] IV Last administered on 08/30/16 11:47; Start 08/30/16 at 10:00; Stop at 00:17; Status DC Polyethylene Glycol/ Electrolytes (Colyte Liq) 4,000 ml ONCE ONCE PO Last administered on 08/31/16 18:54; Start 08/31/16 at 18:15; Stop 08/31/16 at 18:16 ; Status DC Magnesium Citrate (Citroma Liq) 600 ml NOW ONCE PO Last administered on 05:48; Start 09/01/16 at 05:45; Stop 09/01/16 at 05:46; Status DC Sodium Biphosphate/ Sodium Phosphate 266 ml 266 ml ONCE ONCE RECTAL Last administered on 09/01/16 08:48; Start 09/01/16 at 08:00; Stop 09/01/16 at 08:01 ; Status DC Lactated Ringer's 1,000 ml @ 30 mls/hr Q24H PRN IV SEE LABEL COMMENTS; Start at 08:45; Stop 09/01/16 at 12:08; Status DC Sodium Chloride (NS 500 ml Inj) 500 ml @ 30 mls/hr [id number] PRN IV SEE LABEL COMMENTS; Start 09/01/16 at 08:45; Stop 09/01/16 at 12:08; Status DC Metoprolol Tartrate (Lopressor) 25 mg GUEST [employer]ICE HOST PRN PO SEE LABEL COMMENTS; Start 09/01/16 at 08:45; Stop 09/04/16 at 08:44; Status DC Povidone Iodine (Betadine 5% Antisepsis Kit) 1 applic G[employer] HOST PRN EACH NARE SEE LABEL COMMENTS; Start 09/01/16 at 08:45; Stop 09/04/16 at 08:44; Status DC Chlorhexidine Gluconate (Chlorhexidine 2% Cloth) 3 pack [employer] PRN TOPICAL SEE LABEL COMMENTS; Start 09/01/16 at 08:45; Stop 09/04/16 at 08:44; Status DC Insulin Human Regular (NovoLIN R INJ) See Protocol Table ... G[employer] HOST PRN SQ SEE PROTOCOL TABLE; Start 09/01/16 at 08:45; Stop 09/04/16 at 08:44; Status DC Pantoprazole Sodium 40 mg 40 mg DAILY PO Last administered on 09/07/16 09:55; Start 09/01/16 at 12:00; Stop 09/08/16 at 10:36; Status DC Sodium Chloride 500 ml @ 500 mls/hr BOLUS ONCE IV Last administered on 12:00; Start 09/01/16 at 12:00; Stop 09/01/16 at 12:59; Status DC Potassium Chloride/Sodium Chloride (NS + KCl 20 Meq Inj) 1,000 ml @ 84 mls/hr [id number] IV Last administered on 09/02/16 22:07; Start 09/01/16 at 12:00; Stop 09/03/16 at 21:17; Status DC Miscellaneous Information ALL NURSING DEPARTME... UNSCH PRN .XX SEE LABEL COMMENTS; Start 09/01/16 at 13:00; Stop 09/02/16 at 12:59; Status DC Propofol (Diprivan 200 Mg/20 ml Inj) 160 mg STK-MED ONCE IV ; Start 09/01/16 at 10:57; Stop 09/01/16 at 13:10; Status DC Pantoprazole Sodium (Protonix) 40 mg BID PO Last administered on 09/10/16 20: 43; Start 09/08/16 at 21:00; Stop 09/13/16 at 17:09; Status DC Sucralfate (Carafate Liq) 1 gm ACHS PO Last administered on 09/14/16 20:46; Start 09/08/16 at 11:00 Magnesium Citrate (Citroma Liq) 300 ml ONCE ONCE PO Last administered on 13:16; Start 09/08/16 at 12:00; Stop 09/08/16 at 12:40; Status DC Magnesium Citrate (Citroma Liq) 300 ml ONCE ONCE PO Last administered on 17:48; Start 09/08/16 at 18:00; Stop 09/08/16 at 18:01; Status DC Bisacodyl (Dulcolax Ec) 10 mg DAILY@ PO Last administered on 09/08/16 22: 33; Start 09/08/16 at 18:00; Stop 09/08/16 at 21:01; Status DC Diatrizoate Meglum/ Diatrizoate Sod ( Gastroview Liq) 18 ml ONCE ONCE PO ; Start 09/08/16 at 18:24; Stop 09/08/16 at 19:12; Status DC Scopolamine (Transderm-Scop 1.5 Mg Patch.72 Hr) 1 patch Q3D T-DERMAL Last administered on 09/14/16 19:55; Start 09/11/16 at 18:00 Miscellaneous Information 1 1 Q3D T-DERMAL Last administered on 09/14/16 18:00 ; Start 09/14/16 at 18:00 Sodium Chloride 500 ml @ 50 mls/hr Q10H IV Last administered on 09/11/16 18: 47; Start 09/11/16 at 18:15; Stop 09/12/16 at 04:14; Status DC Potassium Chloride 100 ml @ 100 mls/hr Q1H IV Last administered on 09/12/16 15:00; Start 09/12/16 at 13:00; Stop 09/12/16 at 15:59; Status DC Potassium Chloride/Dextrose/ Sod Cl (D5-1/2 NS + KCl 20 Meq Inj) 1,000 ml @ 84 mls/hr [id number] IV Last administered on 09/16/16 23:41; Start 09/12/16 at 12:15 Potassium Chloride 30 meq 30 meq ONCE ONCE PO ; Start 09/13/16 at 09:15; Stop 09/13/16 at 10:45; Status DC Potassium Chloride (KCl 10 Meq Premix Inj) 100 ml @ 100 mls/hr BOLUS ONCE IV Last administered on 09/13/16 13:12; Start 09/13/16 at 10:45; Stop 09/13/16 at 11:44; Status DC Pantoprazole Sodium (Protonix Inj) 40 mg Q12H IV PUSH Last administered on 09/17 06:33; Start 09/13/16 at 18:00 Promethazine HCl (Phenergan) 12.5 mg Q6H PRN PO nausea; Start 09/13/16 at 18:00 Ondansetron HCl 8 mg 8 mg Q6H PRN IV PUSH nausea; Start 09/15/16 at 01:45; Status UNV Ondansetron HCl 8 mg/Dextrose 54 ml @ 216 mls/hr Q6H PRN IV PUSH NAUSEA OR VOMITING; Start 09/14/16 at 23:45; Stop 09/15/16 at 05:36; Status DC Ondansetron HCl/ Dextrose (Zofran Inj/D5W Inj) 54 ml @ 216 mls/hr Q6H PRN IV NAUSEA OR VOMITING Last administered on 09/16/16 21:53; Start 09/15/16 at 05:36 A/P Problem List: (1) Total self-care deficit ICD Code: R41.89 Status: Acute (2) Sacral pressure ulcer ICD Code: L89.159 Status: Chronic (3) Subclinical hypothyroidism ICD Code: E03.9 Status: Acute (4) Radiculopathy of lumbar region ICD Code: M54.16 Status: Acute Assessment and Plan Mrs. Arreola is a 70-year-old female with a known history of hypertension, obesity , arthritis, status post gastric bypass who presented to the ED on 06/23/16 with complaints of generalized weakness for two weeks. Apparently patient had been discharged on 06/08/16 with home health care and sustained a fall at home with progressive weakness. Supposedly she is wheelchair bound at home and unable to transfer independently. Poor appetite secondary to nausea and vomiting: Encourage PO intake as tolerated. Zofran IV PRN. Continue IV Reglan. Continue Marinol for appetite stimulant. Dietitian consulted for calorie count, may need to consider PEG tube for supplemental feeding. Full liquids per GI. Scopolamine patch added. BMP with signs of hemoconcentration/dehydration. On D5. Consult palliative care. Continue management per GI. unsure what else can be offered in hospital. she may need to go to [facility] facility to see if anything can be offered, but patient declined. IR for GJ still pending. will need nutrition consult for TF. Hypokalemia: resolved. Epigastric pain likely secondary to ulcer: Continue Protonix. Sacral pressure ulcer, resolved: Encourage repositioning patient every 2 hours. Specialty mattress continued. C. difficile diarrhea: Diarrhea is currently improved. Last BM 09/05. Last Tox PCR positive on 08/19. Has previously been treated with Flagyl, oral vancomycin. ID previously consulted on 08/20 with recommendations to discontinue Vanco and begin Dificid, completed course of Dificid. Generalized weakness: Continue physical therapy. Will need nursing facility at discharge, case management following, but patient declined. she stated she wants to go home. Lumbar radiculopathy: Neurosurgery signed off, no surgical intervention recommended at this time. Control pain [place] PRN per pain scale. Anemia, GI bleed: Stool Hemoccult is positive on 08/30. Status post EGD, which showed esophageal ulcer. S/p transfusion 2 units on 09/02. Hb stable. Other chronic medical history includes osteoarthritis, CKD stage III are stable at this time. DVT prophylaxis: SCDs/TEDs. Discharge Planning Patient needs GJ and TF. Once that is accomplished can be d/c to home with home health. Bed already delivered to house. Problem Qualifiers (1) Sacral pressure ulcer: Qualified Code: L89.151 - Decubitus ulcer of sacral region, stage 1 Paola Carballo MD Sep 17, 2016 09:58
[2016-09-17] MEDS: DRONABINOL 5 MG CAP PO SCH ×2 (10:19→14:48)
[2016-09-17] MEDS: D5-1/2 NS + KCL 20 MEQ INJ 1,000 ML IV SCH ×2 (10:19→17:20)
[2016-09-17] MEDS: ONDANSETRON INJ 8 MG in DEXTROSE 5% IN WATER INJ 50 ML IV PRN ×4 (11:07→17:19)
--- NOTE | 2016-09-17 12:17 | HHI.GIFU ---
Subjective Remarks Resting in bed. Continues to have nausea, states spitting/vomiting up phlegm. Unable to take any po. IR unable to place G/J tube secondary to hx of gastric bypass. Will ask GS to see patient, patient is agreeable. States she is getting weak secondary to not eating. (Chastity Sutherland) Objective Vitals I&O Vital Signs Date Time Temp Pulse Resp B/P Pulse Ox O2 Delivery O2 Flow Rate FiO2 09/17/16 10:18 82 09/17/16 07:35 96.2 86 20 114/71 96 09/17/16 05:05 98.6 88 20 146/88 99 09/17/16 00:40 98.7 86 20 148/72 96 09/16/16 22:42 80 09/16/16 20:25 97.4 84 22 156/68 95 09/16/16 16:24 97.2 81 18 125/63 97 I/O 09/16/16 09/16/16 09/16/16 09/17/16 09/17/16 09/17/16 07:00 15:00 23:00 07:00 15:00 23:00 Intake Total 955 ml 420 ml Output Total 0 ml Balance 955 ml 420 ml Intake Oral 420 ml IV Total 955 ml Output Urine Total 0 ml # Voids 1 2 # Bowel Movements 0 Imaging Last Impressions Abdomen/Pelvis CT 09/08/16 0000 Signed Impressions: Service Date/Time: Thursday, September 08, 2016 21:55 - CONCLUSION: 1. No acute findings within the abdomen and pelvis. Colonic diverticulosis without diverticulitis. Previous gastric bypass surgery. 2. Small left-sided pleural effusion with mild basilar atelectasis. 3. Atrophic left kidney. Dillon Romero MD Hip MRI 07/05/16 0000 Signed Impressions: Service Date/Time: Tuesday, July 05, 2016 10:51 - CONCLUSION: 1. There is osteopenia primary degenerative changes at both hips, left greater than right. 2. Prominent osteophyte along the inferior articulating surface of the proximal left femur. 3. Nonspecific edema in the gluteus and hamstring muscles. 4. No acute bony fracture. Javier Fishman MD Lower Extremity Ultrasound 06/29/16 0000 Signed Impressions: Service Date/Time: Wednesday, June 29, 2016 10:07 - CONCLUSION: Negative for deep venous thrombosis. Alfredo Sanders MD FACR Cervical Spine MRI 06/27/16 0000 Signed Impressions: Service Date/Time: Monday, June 27, 2016 11:09 - CONCLUSION: Mild degenerative changes otherwise unremarkable cervical spine. Anselmo Leavitt MD Thoracic Spine MRI 06/25/16 0000 Signed Impressions: Service Date/Time: June 19:36 - CONCLUSION: 1. No fracture or subluxation of the thoracic spine. 2. Mild and fairly diffuse degenerative changes as above. 3. Mild left foraminal encroachment at T8/T9 and T9/T10. 4. No significant spinal stenosis at any level. 5. Incidentally seen tiny right and small left pleural effusions, nonspecific. Jeevan Arreola MD Lumbar Spine MRI 06/25/16 0000 Signed Impressions: Service Date/Time: June 19:36 - CONCLUSION: 1. Multilevel lumbar degenerative changes as detailed above. 2. Mild spinal stenosis at L3/L4 without evidence of transiting nerve root impingement. 3. Mild to moderate spinal stenosis at L4/L5 and possibly with mild mass effect/impingement on the transiting left L5 nerve root within the subarticular recess. 4. Mild bilateral foraminal encroachment L3/L4 and L4/L5. Mild to moderate bilateral foraminal encroachment at L5/S1. 5. No fracture or subluxation of the lumbar spine. Jeevan Arreola MD Hip and Pelvis X-Ray 06/25/16 0000 Signed Impressions: Service Date/Time: June 20:27 - CONCLUSION: Moderate to severe left hip' right is with considerable osteophytosis and an apparent large inferior joint body. No fracture or subluxation. Jeevan Arreola MD Chest X-Ray 06/23/16 1402 Signed Impressions: Service Date/Time: Thursday, June 23, 2016 14:13 - CONCLUSION: Normal examination. Elías Morneo MD Physical Exam HEENT: Normocephalic; atraumatic; no jaundice. CHEST: CTA, diminished CARDIAC: RRR ABDOMEN: Soft, nondistended, mild RUQ/LUQ/epigastric tenderness no hepatosplenomegaly; bowel sounds are present. EXTREMITIES: Generalized edema. SKIN: Generalized pallor INFORMATION CODER: Awake and oriented times three. (Chastity Sutherland) Assessment and Plan Plan ASSESSMENT: - Persistent N/V, ?gastroparesis. Of note, patient is s/p gastric bypass 5 years ago. She was evaluated with EGD/Colonoscopy (09/01/16)---> esophageal ulcer and anatomy C/W gastric bypass, colonoscopy showed diverticulosis, no sign of colitis. Pathology acute esophagitis, no fungal organisms are present. Abdomen/Pelvis CT (09/08/16)-----> 1. No acute findings within the abdomen and pelvis. Colonic diverticulosis without diverticulitis. Previous gastric bypass surgery. 2. Small left-sided pleural effusion with mild basilar atelectasis. 3. Atrophic left kidney. Still having persistent nausea- no vomiting. She continues to refuse all po meds except Atarax and Lortab. She still is not eating any po diet. States that she cannot. Manager Integration is following and has recommend if PPN needed, CLINIMIX E 4.25/5 @ 70 mls/hr with 20% lipids @ 10 mls/hr. IR unable to place G/J tube secondary to hx of gastric bypass. Will ask GS to see for surgical J tube placement. Manager Integration recommends Vital 1.5 @ 45 mls/hr goal for tube feeding. - Decreased appetite, refusing Marinol. States she cannot eat because of nausea. - Elevated LFTs. Stable. - Esophageal ulcer. Protonix. - Anemia, Hemoccult positive stool. S/P 2 units PRBC, HH has remained stable since. EGD/Colonoscopy as above. - CDiff colitis, s/p oral vanco, dificid. Colonoscopy without any signs of colitis. States diarrhea improved. Repeat CDiff stool ordered on 09/10 but nothing has resulted. Reports 2 BMs PLAN: - GS evaluation for J tube placement (IR unable to place secondary to hx of gastric bypass) - Cont. Scopolamine - Cont. Protonix - Cont. Zofran prn - Pt refusing all po meds except Lortab, Zoloft, Atarax - Rpt. Stool CDiff ordered, not sent - Manager Integration recommends Vital 1.5 @ 45 mls/hr goal - If J tube not placed tomorrow, then consider PPN over weekend - Further recommendations as the case develops - Pt seen and examined by Dr. Cheatham and myself and this note is written on his behalf (Chastity Sutherland) Physician Comments Seen and examined Agree with above Continue with current supportive care Monitor labs (Jc Cheatham MD) Chastity Sutherland Sep 17, 2016 12:17 Jc Cheatham MD Sep 17, 2016 22:59
[2016-09-17] MEDS: REMOVE OLD SCOPOLAMINE PATCH T-DERMAL SCH (17:26)
[2016-09-17] MEDS: SCOPOLAMINE 1.5 MG PATCH T-DERMAL SCH (17:27)
--- NOTE | 2016-09-17 20:21 | MB ---
cc: KRISSY DAVIS MD DATE OF CONSULTATION 09/17/2016 REASON FOR CONSULTATION Feeding tube access. HISTORY OF PRESENT ILLNESS The patient is a 70-year-old female who was admitted on 06/23/2016. The patient initially presented with fatigue, weakness, decreased p.o. intake for several weeks' duration, status post fall at home. She is wheelchair-bound and has been bed-bound for some time as well. She has been in the hospital for a several month stay due to complications with C diff colitis, issues with p.o. intake and a sacral decubitus ulcer and generalized fatigue. She has undergone treatment with this. She was noted to be having anemia status post colonoscopy and EGD with findings of esophageal ulcer and transfusion with improvement in her hemoglobin. She is in need of a feeding tube access. Initial attempts with interventional radiology have not been successful due to the patient's history of gastric bypass. The patient is a morbidly obese patient with a BMI of 48. She had a history of a Mina-en-Y gastric [place] [address] Dougherty. She states she did relatively well with the gastric bypass and has lost approximately 150 pounds. However, recently she has developed nausea, vomiting and feeding difficulties with decreased p.o. intake therefore necessitating need for a surgical feeding tube. On my exam, the patient confirms the above and states she has been having some issues with tolerating p.o. intake. She stated she has lost approximately 50 pounds since May due to her difficulty eating. She further denies taking her bariatric vitamins, is not currently following up with a bariatric surgeon as well. She is currently afebrile and lying in bed. PAST MEDICAL HISTORY 1. Hypertension, 2. Arthritis, 3. Anxiety PAST SURGICAL HISTORY 4. Mina-en-Y gastric bypass 2003, 5. Cholecystectomy, 6. Appendectomy, 7. ALLERGIES CODEINE MACROBID DEMEROL MEDICATIONS See EMR. SOCIAL HISTORY Previous history of smoking approximately 30 years, quit 20 years ago. Occasional EtOH use, denies IVDA. FAMILY HISTORY Denies hypertension or diabetes. REVIEW OF SYSTEMS GENERAL: Denies eye pain, ear pain. HEENT: Denies eye drainage or blurry vision, NECK: Denies swelling or pain. CARDIOVASCULAR: Denies palpitation or chest pain. LUNGS: Denies cough or wheeze. ABDOMEN: Denies significant abdominal pain. Complains of nausea, vomiting. EXTREMITIES: Complained of arthralgias, myalgias, weakness. SKIN: Denies current rash, complains of decubitus ulcer. NEUROLOGIC: Denies change in sensorium. PHYSICAL EXAMINATION GENERAL: The patient in no acute distress. VITAL SIGNS: Temperature 96.2, pulse 86, respiration 28, blood pressure 114/71, saturation 96%. HEENT: PERRLA, EOMI. LUNGS: Equal bilateral expansion. HEART: S1-S2 regular rhythm. ABDOMEN: Soft, obese. Well-healed surgical scars. EXTREMITIES: Moving extremities, weakness. SKIN: Sacral decubitus ulcer. NEUROLOGIC: GCS of 15. Alert and oriented times three. PSYCHIATRIC: Good mood and good affect. LABORATORY AND DIAGNOSTIC DATA WBC 8, hemoglobin 8.7, hematocrit 26.4, platelets 229. Sodium 144, potassium five, chloride 112, BUN eight, creatinine 0.99, albumin 1.6, INR 1.1. IMAGING STUDIES Imaging reviewed by myself. CT abdomen and pelvis - no acute findings, colonic diverticulosis, evidence of gastric bypass, small left pleural effusion. No evidence of bypass obstruction. ASSESSMENT The patient is a 70-year-old female history of morbid obesity, multiple medical issues, history of Mina-en-Y gastric bypass, now with decreased p.o. intake, feeding difficulties and in the need of surgical feeding tube. PLAN After full clinical laboratory assessment, the patient with above-named issues including feeding difficulties, history of bariatric surgery. At this point, I recommend considering obtaining upper GI to evaluate gastric bypass and pouch. Further we will plan to do likely a gastrostomy tube in the remnant stomach versus possible jejunostomy tube on Wednesday. This was discussed with the patient in detail. Risks, benefits and alternatives, planning. We will plan for laparoscopic gastrostomy versus jejunostomy tube. We will seek medical clearance for surgery and recommend possible IV nutrition to optimize the patient's nutrition status. MD MACIEL Ochoa/ /4:26 PM /8:05 PM [facility]
[2016-09-17] MEDS: CETIRIZINE HCL 10 MG TAB PO SCH (21:42)
[2016-09-17] MEDS: SERTRALINE HCL 100 MG TAB PO SCH (21:43)
[2016-09-18] VITALS (8 sets, daily range): BP systolic 119–145; BP diastolic 58–67; PULSE 82–92; RESP 16–20; TEMP 96.2–99.3; O2SAT 94–98
[2016-09-18] MEDS: SODIUM CHLORIDE 0.9% FLUSH 5 ML FLUSH FLUSH SCH ×2 (09:00→21:00)
[2016-09-18] MEDS: LACTOBACILLUS ACIDOPHILUS TAB PO SCH ×2 (09:00→21:00)
[2016-09-18] MEDS: LISINOPRIL 10 MG TAB PO SCH (09:00)
[2016-09-18] MEDS: ASPIRIN EC 81 MG TABEC PO SCH (09:00)
[2016-09-18] MEDS: CALAMINE/PRAMOXINE LOTION 180 ML BTL TOPICAL SCH ×2 (09:26→21:26)
[2016-09-18] MEDS: MUPIROCIN 2% CREAM 15 GM TOPICAL SCH ×2 (09:26→21:00)
--- NOTE | 2016-09-18 10:39 | HHI.PR ---
Subjective Remarks Follow-up for nausea Patient has no complaints. Continues to have nausea and abdominal pain. Otherwise no acute events. Objective Vitals Vital Signs Date Time Temp Pulse Resp B/P Pulse Ox O2 Delivery O2 Flow Rate FiO2 09/18/16 09:30 87 09/18/16 07:30 96.2 85 20 126/58 94 09/18/16 06:14 97.9 86 18 139/60 96 09/18/16 01:12 99.3 92 16 119/59 94 09/17/16 20:36 98.7 90 18 123/66 100 09/17/16 15:20 98.2 89 20 125/73 97 09/17/16 11:15 97.6 84 20 128/62 98 I/O 09/17/16 09/17/16 09/17/16 09/18/16 09/18/16 09/18/16 07:00 15:00 23:00 07:00 15:00 23:00 # Voids 5 1 5 # Bowel Movements 2 0 2 Result Diagram: 09/15/16 1231 Objective Remarks Gen morbidly obese CV RRR. no r/m/g abd: soft NDNT. no peritoneal signs. Ext 5/5 LE strength Procedures none Medications and IVs Current Medications IV Flush 2 ml 2 ml UNSCH PRN IVF FLUSH AFTER USING IV ACCESS; Start 06/23/16 at 14:15; Stop 06/23/16 at 20:00; Status DC Sodium Chloride 1,000 ml @ 1,000 mls/hr Q1H ONCE IV Last administered on 15:37; Start 06/23/16 at 14:02; Stop 06/23/16 at 15:01; Status DC Ceftriaxone Sodium/Sodium Chloride (Rocephin Inj/NS Inj) 100 ml @ 200 mls/hr ONCE ONCE IV Last administered on 06/23/16 18:25; Start 06/23/16 at 18:00; Stop 06/23/16 at 18:29; Status DC IV Flush (NS Flush) 2 ml UNSCH PRN FLUSH FLUSH AFTER USING IV ACCESS Last administered on 07/25/16 18:44; Start 06/23/16 at 20:00 IV Flush (NS Flush) 2 ml BID FLUSH Last administered on 09/16/16 21:00; Start 06/23/16 at 21:00 Enoxaparin Sodium (Lovenox Inj) 40 mg Q24H SQ Last administered on 08/31/16 09 :20; Start 06/24/16 at 09:00; Status Hold Naloxone HCl 0.4 mg 0.4 mg UNSCH PRN IV SEE LABEL COMMENTS; Start 06/23/16 at 20:00 Levofloxacin/ Dextrose (Levaquin 750 Mg Premix Inj) 150 ml @ 100 mls/hr Q24H IV Last administered on 06/23/16 22:06; Start 06/23/16 at 21:00; Stop 06/24/16 at 09:56; Status DC Acetaminophen/ Hydrocodone Bitart (Crimora 5-325 Mg) 1 tab Q6H PRN PO pain >5 Last administered on 06/23/16 22:31; Start 06/23/16 at 22:30; Stop 06/24/16 at 09:59; Status DC Nitrofurantoin Macrocrystals (Macrobid) 100 mg BIDPC PO Last administered on 10:28; Start 06/24/16 at 18:00; Stop 06/25/16 at 13:15; Status DC Amlodipine Besylate (Norvasc) 10 mg DAILY PO Last administered on 09/10/16 09: 27; Start 06/24/16 at 10:00 Aspirin (Ecotrin Ec) 81 mg DAILY PO Last administered on 09/10/16 09:27; Start 06/25/16 at 09:00 Famotidine (Pepcid) 20 mg BID PO Last administered on 07/09/16 09:23; Start at 21:00; Stop 07/09/16 at 15:35; Status DC Furosemide (Lasix) 20 mg DAILY PO Last administered on 09/10/16 09:28; Start 06/25/16 at 09:00; Status Hold Lisinopril (Prinivil) 20 mg DAILY PO Last administered on 08/13/16 09:45; Start 06/24/16 at 10:00; Stop 08/13/16 at 19:10; Status DC Meloxicam (Mobic) 7.5 mg BID PO Last administered on 07/08/16 10:10; Start 06/24/16 at 21:00; Stop 07/08/16 at 17:43; Status DC Potassium Chloride (KCl) 10 meq DAILY PO Last administered on 07/09/16 09:23; Start 06/25/16 at 09:00; Stop 07/09/16 at 14:35; Status DC Sertraline HCl (Zoloft) 200 mg HS PO Last administered on 09/17/16 21:43; Start 06/24/16 at 21:00 Diphenhydramine HCl (Benadryl) 25 mg Q6H PRN PO itching Last administered on 11:45; Start 06/25/16 at 18:00; Stop 06/30/16 at 14:15; Status DC Acetaminophen (Tylenol) 650 mg Q6H PRN PO PAIN SCALE 1 TO 2; Start 06/26/16 at 16:15 Acetaminophen/ Hydrocodone Bitart (Crimora 5-325 Mg) 1 tab Q4H PRN PO PAIN SCALE 6 TO 10 Last administered on 09/12/16 18:16; Start 06/26/16 at 16:15 Acetaminophen/ Hydrocodone Bitart (Crimora 7.5-325 Mg) 1 tab Q4H PRN PO PAIN SCALE 6 TO 10 Last administered on 08/05/16 15:19; Start 06/26/16 at 16:15; Stop 08/05/16 at 16:07; Status DC Calamine/Pramoxine (Caladryl Lotion) 1 applic Q12HR TOPICAL Last administered on 09/18/16 09:26; Start 06/27/16 at 09:00 Trimethoprim/ Sulfamethoxazole (Bactrim 400-80 Mg) 1 tab Q12HR PO Last administered on 07/08/16 10:12; Start 06/28/16 at 12:00; Stop 07/08/16 at 11:59 ; Status DC Cephalexin Monohydrate (Keflex) 250 mg Q8HR PO Last administered on 07/08/16 05:31; Start 06/28/16 at 14:00; Stop 07/08/16 at 13:59; Status DC Cetirizine HCl (ZyrTEC) 10 mg HS PO Last administered on 09/17/16 21:42; Start 06/29/16 at 21:00 Prednisone (Deltasone) 40 mg DAILY PO Last administered on 07/02/16 10:56; Start 06/29/16 at 10:00; Stop 07/02/16 at 09:59; Status DC Hydroxyzine HCl (Atarax) 10 mg Q6H PRN PO itching/anxiety Last administered on 07/02/16 11:03; Start 06/30/16 at 14:15; Stop 07/02/16 at 12:08; Status DC Hydroxyzine HCl (Atarax) 25 mg Q6H PRN PO ITCHING/ANXIETY Last administered on 07/08/16 17:16; Start 07/02/16 at 12:15; Stop 07/08/16 at 17:43; Status DC Metronidazole (Flagyl) 500 mg Q8HR PO Last administered on 07/17/16 21:05; Start 07/04/16 at 02:58; Stop 07/18/16 at 02:57; Status DC Lactobacillus Acidophilus (Lactinex) 1 tab Q12HR PO Last administered on 21:42; Start 07/04/16 at 21:00 Naloxone HCl (Narcan Inj) 0.4 mg UNSCH X1 PRN IV PUSH RESP DEPRESSION OR HYPOTENSION; Start 07/07/16 at 08:00; Stop 07/09/16 at 07:59; Status DC Ondansetron HCl (Zofran Inj) 4 mg Q6H PRN IV PUSH nausea Last administered on 17:08; Start 07/07/16 at 13:45; Stop 09/14/16 at 23:37; Status DC Nystatin (Mycostatin Cream) 1 applic Q12HR TOPICAL Last administered on 10:54; Start 07/07/16 at 15:00; Stop 07/13/16 at 13:48; Status DC Hydroxyzine HCl (Atarax) 50 mg Q6H PRN PO ITCHING/ANXIETY Last administered on 09/12/16 18:17; Start 07/08/16 at 18:15 Famotidine (Pepcid) 10 mg BID PO Last administered on 07/23/16 08:56; Start at 21:00; Stop 09/08/16 at 10:36; Status DC Miscellaneous (Pill Splitter) 1 ea UNSCH PRN OTHER SEE LABEL COMMENTS Last administered on 07/11/16 08:23; Start 07/09/16 at 15:45 Potassium Chloride (KCl) 10 meq ONCE ONCE PO Last administered on 07/10/16 17 :52; Start 07/10/16 at 17:30; Stop 07/10/16 at 17:31; Status DC Potassium Chloride (KCl) 10 meq ONCE ONCE PO Last administered on 07/11/16 11 :38; Start 07/11/16 at 11:30; Stop 07/11/16 at 11:31; Status DC Potassium Chloride (KCl) 20 meq ONCE ONCE PO Last administered on 07/13/16 11 :46; Start 07/13/16 at 12:00; Stop 07/13/16 at 12:01; Status DC Nystatin (Mycostatin Cream) 1 applic Q6HR TOPICAL Last administered on 23:11; Start 07/13/16 at 13:30; Stop 08/04/16 at 10:02; Status DC Mupirocin (Bactroban 2% Cream) 1 applic Q12HR TOPICAL Last administered on 09/18 09:26; Start 07/13/16 at 13:30 Nystatin (Mycostatin Liq) 5 ml QID SWISH-SWAL Last administered on 07/27/16 10 :16; Start 07/14/16 at 18:00; Stop 07/28/16 at 17:59; Status DC Promethazine HCl (Phenergan Inj) 25 mg ONCE ONCE IM Last administered on 21:30; Start 07/25/16 at 21:30; Stop 07/25/16 at 21:31; Status DC Metronidazole (Flagyl) 500 mg Q8HR PO ; Start 07/26/16 at 16:15; Stop 07/26/16 at 16:24; Status DC Vancomycin HCl (VANCOMYCIN for oral use only) 250 mg QID PO Last administered on 08/12/16 12:32; Start 07/26/16 at 18:00; Stop 08/12/16 at 14:30; Status DC Metoclopramide HCl 10 mg 10 mg ACHS PRN PO NAUSEA OR VOMITING Last administered on 07/31/16 22:02; Start 07/26/16 at 16:30; Stop 08/07/16 at 14:14 ; Status DC Magnesium Sulfate/ Dextrose (Magnesium Sulfate 1 Gm Premix) 100 ml @ 100 mls/ hr Q1H IV Last administered on 07/30/16 21:21; Start 07/30/16 at 18:00; Stop 07/30/16 at 19:59; Status DC Potassium Chloride (KCl) 60 meq ONCE ONCE PO Last administered on 07/30/16 18: 46; Start 07/30/16 at 17:15; Stop 07/30/16 at 17:16; Status DC Potassium Chloride (KCl) 40 meq ONCE ONCE PO Last administered on 08/05/16 15 :04; Start 08/05/16 at 14:30; Stop 08/05/16 at 14:31; Status DC Acetaminophen/ Hydrocodone Bitart (Crimora 10-325 Mg) 1 tab Q4H PRN PO pain 6-10 Last administered on 08/07/16 09:45; Start 08/05/16 at 16:15; Stop 08/07/16 at 14:11; Status DC Morphine Sulfate (Morphine Inj) 2 mg Q3H PRN IV PUSH breakthrough pain; Start 08/05/16 at 16:15; Stop 08/06/16 at 15:49; Status DC Ketorolac Tromethamine (Toradol Inj) 15 mg Q6HR IV PUSH Last administered on 17:15; Start 08/06/16 at 18:00; Stop 08/09/16 at 00:01; Status DC Metoclopramide HCl (Reglan Inj) 5 mg TIDAC IV PUSH Last administered on 15:16; Start 08/07/16 at 17:00; Stop 09/13/16 at 17:59; Status DC Senna/Docusate Sodium (Leti-Colace) 2 tab BID PO Last administered on 09:52; Start 08/09/16 at 12:15; Stop 09/11/16 at 18:29; Status DC Potassium Chloride (KCl) 40 meq ONCE ONCE PO Last administered on 08/09/16 12 :54; Start 08/09/16 at 12:30; Stop 08/09/16 at 12:31; Status DC Vancomycin HCl (VANCOMYCIN for oral use only) 500 mg QID PO Last administered on 08/18/16 21:37; Start 08/12/16 at 18:00; Stop 08/19/16 at 08:47; Status DC Lisinopril (Prinivil) 10 mg DAILY PO Last administered on 09/10/16 09:27; Start 08/14/16 at 09:00 Potassium Chloride (KCl) 30 meq ONCE ONCE PO Last administered on 08/14/16 22 :24; Start 08/14/16 at 19:00; Stop 08/14/16 at 19:01; Status DC Dronabinol (Marinol) 2.5 mg ONCE ONCE PO Last administered on 08/15/16 14:15 ; Start 08/15/16 at 12:45; Stop 08/15/16 at 12:46; Status DC Dronabinol (Marinol) 5 mg BID@11,16 PO Last administered on 09/10/16 16:43; Start 08/15/16 at 16:00 Vancomycin HCl (VANCOMYCIN for oral use only) 250 mg Q12HR PO Last administered on 08/20/16 09:46; Start 08/19/16 at 09:00; Stop 08/20/16 at 16:09 ; Status DC Vancomycin HCl (VANCOMYCIN for oral use only) 250 mg Q6HR PO Last administered on 08/20/16 17:04; Start 08/20/16 at 18:00; Stop 08/20/16 at 19:11; Status DC Fidaxomicin (Dificid) 200 mg BID PO Last administered on 08/30/16 09:41; Start 08/20/16 at 21:00; Stop 08/30/16 at 20:59; Status DC Cholestyramine Resin 4 gm 4 gm Q8HR PO Last administered on 09/04/16 20:52; Start 08/23/16 at 14:00; Stop 09/08/16 at 10:36; Status DC Magnesium Sulfate/ Dextrose 100 ml @ 100 mls/hr Q1H IV Last administered on 12:18; Start 08/24/16 at 09:30; Stop 08/24/16 at 11:29; Status DC Potassium Chloride 100 ml @ 50 mls/hr Q2H IV Last administered on 08/24/16 12: 22; Start 08/24/16 at 09:30; Stop 08/24/16 at 13:29; Status DC Potassium Chloride 100 ml @ 50 mls/hr ONCE ONCE IV Last administered on 22:23; Start 08/24/16 at 19:00; Stop 08/24/16 at 20:59; Status DC Potassium Chloride 100 ml @ 50 mls/hr Q2H IV Last administered on 08/25/16 12: 53; Start 08/25/16 at 09:15; Stop 08/25/16 at 13:14; Status DC Potassium Chloride 100 ml @ 100 mls/hr Q1H IV Last administered on 08/26/16 16 :48; Start 08/26/16 at 13:00; Stop 08/26/16 at 16:06; Status DC Sodium Chloride 500 ml @ 500 mls/hr BOLUS ONCE IV Last administered on 01:34; Start 08/29/16 at 01:30; Stop 08/29/16 at 02:29; Status DC Potassium Chloride/Sodium Chloride (NS + KCl 20 Meq Inj) 1,000 ml @ 70 mls/hr [id number] IV Last administered on 08/30/16 11:47; Start 08/30/16 at 10:00; Stop at 00:17; Status DC Polyethylene Glycol/ Electrolytes (Colyte Liq) 4,000 ml ONCE ONCE PO Last administered on 08/31/16 18:54; Start 08/31/16 at 18:15; Stop 08/31/16 at 18:16 ; Status DC Magnesium Citrate (Citroma Liq) 600 ml NOW ONCE PO Last administered on 05:48; Start 09/01/16 at 05:45; Stop 09/01/16 at 05:46; Status DC Sodium Biphosphate/ Sodium Phosphate 266 ml 266 ml ONCE ONCE RECTAL Last administered on 09/01/16 08:48; Start 09/01/16 at 08:00; Stop 09/01/16 at 08:01 ; Status DC Lactated Ringer's 1,000 ml @ 30 mls/hr Q24H PRN IV SEE LABEL COMMENTS; Start at 08:45; Stop 09/01/16 at 12:08; Status DC Sodium Chloride (NS 500 ml Inj) 500 ml @ 30 mls/hr [id number] PRN IV SEE LABEL COMMENTS; Start 09/01/16 at 08:45; Stop 09/01/16 at 12:08; Status DC Metoprolol Tartrate (Lopressor) 25 mg [employer] PRN PO SEE LABEL COMMENTS; Start 09/01/16 at 08:45; Stop 09/04/16 at 08:44; Status DC Povidone Iodine (Betadine 5% Antisepsis Kit) 1 applic [employer] PRN EACH NARE SEE LABEL COMMENTS; Start 09/01/16 at 08:45; Stop 09/04/16 at 08:44; Status DC Chlorhexidine Gluconate (Chlorhexidine 2% Cloth) 3 pack [employer] PRN TOPICAL SEE LABEL COMMENTS; Start 09/01/16 at 08:45; Stop 09/04/16 at 08:44; Status DC Insulin Human Regular (NovoLIN R INJ) See Protocol Table ... [employer] PRN SQ SEE PROTOCOL TABLE; Start 09/01/16 at 08:45; Stop 09/04/16 at 08:44; Status DC Pantoprazole Sodium 40 mg 40 mg DAILY PO Last administered on 09/07/16 09:55; Start 09/01/16 at 12:00; Stop 09/08/16 at 10:36; Status DC Sodium Chloride 500 ml @ 500 mls/hr BOLUS ONCE IV Last administered on 12:00; Start 09/01/16 at 12:00; Stop 09/01/16 at 12:59; Status DC Potassium Chloride/Sodium Chloride (NS + KCl 20 Meq Inj) 1,000 ml @ 84 mls/hr [id number] IV Last administered on 09/02/16 22:07; Start 09/01/16 at 12:00; Stop 09/03/16 at 21:17; Status DC Miscellaneous Information ALL NURSING DEPARTME... UNSCH PRN .XX SEE LABEL COMMENTS; Start 09/01/16 at 13:00; Stop 09/02/16 at 12:59; Status DC Propofol (Diprivan 200 Mg/20 ml Inj) 160 mg STK-MED ONCE IV ; Start 09/01/16 at 10:57; Stop 09/01/16 at 13:10; Status DC Pantoprazole Sodium (Protonix) 40 mg BID PO Last administered on 09/10/16 20: 43; Start 09/08/16 at 21:00; Stop 09/13/16 at 17:09; Status DC Sucralfate (Carafate Liq) 1 gm ACHS PO Last administered on 09/14/16 20:46; Start 09/08/16 at 11:00 Magnesium Citrate (Citroma Liq) 300 ml ONCE ONCE PO Last administered on 13:16; Start 09/08/16 at 12:00; Stop 09/08/16 at 12:40; Status DC Magnesium Citrate (Citroma Liq) 300 ml ONCE ONCE PO Last administered on 17:48; Start 09/08/16 at 18:00; Stop 09/08/16 at 18:01; Status DC Bisacodyl (Dulcolax Ec) 10 mg DAILY@18,21 PO Last administered on 09/08/16 22: 33; Start 09/08/16 at 18:00; Stop 09/08/16 at 21:01; Status DC Diatrizoate Meglum/ Diatrizoate Sod ( Gastroview Liq) 18 ml ONCE ONCE PO ; Start 09/08/16 at 18:24; Stop 09/08/16 at 19:12; Status DC Scopolamine (Transderm-Scop 1.5 Mg Patch.72 Hr) 1 patch Q3D T-DERMAL Last administered on 09/17/16 17:27; Start 09/11/16 at 18:00 Miscellaneous Information 1 1 Q3D T-DERMAL Last administered on 09/14/16 18:00 ; Start 09/14/16 at 18:00 Sodium Chloride 500 ml @ 50 mls/hr Q10H IV Last administered on 09/11/16 18: 47; Start 09/11/16 at 18:15; Stop 09/12/16 at 04:14; Status DC Potassium Chloride 100 ml @ 100 mls/hr Q1H IV Last administered on 09/12/16 15:00; Start 09/12/16 at 13:00; Stop 09/12/16 at 15:59; Status DC Potassium Chloride/Dextrose/ Sod Cl (D5-1/2 NS + KCl 20 Meq Inj) 1,000 ml @ 84 mls/hr [id number] IV Last administered on 09/17/16 17:20; Start 09/12/16 at 12:15 Potassium Chloride 30 meq 30 meq ONCE ONCE PO ; Start 09/13/16 at 09:15; Stop 09/13/16 at 10:45; Status DC Potassium Chloride (KCl 10 Meq Premix Inj) 100 ml @ 100 mls/hr BOLUS ONCE IV Last administered on 09/13/16 13:12; Start 09/13/16 at 10:45; Stop 09/13/16 at 11:44; Status DC Pantoprazole Sodium (Protonix Inj) 40 mg Q12H IV PUSH Last administered on 09/17 17:20; Start 09/13/16 at 18:00 Promethazine HCl (Phenergan) 12.5 mg Q6H PRN PO nausea; Start 09/13/16 at 18:00 Ondansetron HCl 8 mg 8 mg Q6H PRN IV PUSH nausea; Start 09/15/16 at 01:45; Status UNV Ondansetron HCl 8 mg/Dextrose 54 ml @ 216 mls/hr Q6H PRN IV PUSH NAUSEA OR VOMITING; Start 09/14/16 at 23:45; Stop 09/15/16 at 05:36; Status DC Ondansetron HCl/ Dextrose (Zofran Inj/D5W Inj) 54 ml @ 216 mls/hr Q6H PRN IV NAUSEA OR VOMITING Last administered on 09/17/16 17:19; Start 09/15/16 at 05:36 A/P Problem List: (1) Total self-care deficit ICD Code: R41.89 Status: Acute (2) Sacral pressure ulcer ICD Code: L89.159 Status: Chronic (3) Subclinical hypothyroidism ICD Code: E03.9 Status: Acute (4) Radiculopathy of lumbar region ICD Code: M54.16 Status: Acute Assessment and Plan Mrs. Arreola is a 70-year-old female with a known history of hypertension, obesity , arthritis, status post gastric bypass who presented to the ED on 06/23/16 with complaints of generalized weakness for two weeks. Apparently patient had been discharged on 06/08/16 with home health care and sustained a fall at home with progressive weakness. Supposedly she is wheelchair bound at home and unable to transfer independently. Poor appetite secondary to nausea: -GI and dietitian is following. on Zofran IV PRN. Continue IV Reglan. On scopolamine patch Continue Marinol for appetite stimulant. Full liquids per GI. -GI recommended GJ. IR unable to place one since patient had gastric bypass in the past. -Surgery consulted. -Per surgery they recommended an upper GI to evaluate gastric bypass and pouch. They stated they will likely do a gastrotomy tube in the remnant of the stomach versus possible jejunostomy tube on Wednesday. -Past for surgical clearance. Labs already obtained. Will need to get a recent chest x-ray EKG. Hypokalemia -resolved. Epigastric pain likely secondary to ulcer -Seem to improve. - Continue Protonix. Sacral pressure ulcer, resolved - Encourage repositioning patient every 2 hours. Specialty mattress continued. C. difficile diarrhea -Diarrhea is currently improved. Last BM 09/05. Last Tox PCR positive on 08/19. Has previously been treated with Flagyl, oral vancomycin. ID previously consulted on 08/20 with recommendations to discontinue Vanco and begin Dificid, completed course of Dificid. Generalized weakness - Continue physical therapy. Will need nursing facility at discharge, case management following, but patient declined. she stated she wants to go home. Lumbar radiculopathy - Neurosurgery signed off, no surgical intervention recommended at this time. Control pain Crimora PRN per pain scale. Anemia, GI bleed - Stool Hemoccult is positive on 08/30. Status post EGD, which showed esophageal ulcer. S/p transfusion 2 units on 09/02. Hb stable. Other chronic medical history includes osteoarthritis - CKD stage III are stable at this time. DVT prophylaxis: SCDs/TEDs. Discharge Planning Surgery will determine based on GI workup on what tube patient may need. Pending possible surgery on Wednesday. Problem Qualifiers (1) Sacral pressure ulcer: Qualified Code: L89.151 - Decubitus ulcer of sacral region, stage 1 Paola Carballo MD Sep 18, 2016 10:39
[2016-09-18] MEDS: SUCRALFATE 1 GM/10 ML CUP PO SCH ×4 (11:00→21:00)
[2016-09-18] MEDS: DRONABINOL 5 MG CAP PO SCH ×2 (11:00→16:00)
[2016-09-18] MEDS: D5-1/2 NS + KCL 20 MEQ INJ 1,000 ML IV SCH (12:47)
[2016-09-18] MEDS: hydrOXYzine HCL 25 MG TAB PO PRN (12:49)
--- NOTE | 2016-09-18 13:36 | RADRPT ---
EXAM DATE/TIME: 09/18/2016 11:51 [facility] COMPARISON: CHEST SINGLE AP, June 23, 2016, 14:13. INDICATIONS : Nausea and vomiting, pre op abdominal surgery. MEDICAL HISTORY : Hypertension. Cardiovascular disease. SURGICAL HISTORY : Cholecystectomy. ENCOUNTER: Subsequent ACUITY: 4 - 6 days PAIN SCORE: 0/10 LOCATION: Bilateral chest FINDINGS: Tiny bilateral pleural effusions are seen. Borderline cardiomegaly seen. Lungs are clear. There are d egenerative changes in the thoracic spine with hypertrophic changes. CONCLUSION: Tiny bilateral pleural effusions. Mary Florez MD on September 18, 2016 at 13:32 Board Certified Radiologist. This report was verified electronically.
--- NOTE | 2016-09-18 13:47 | EKG ---
Date Performed: 09/18/2016 Time Performed: 11:16:50 PTAGE: 70 years EKG: Sinus rhythm . Incomplete LBBB Possible inferior infarct - age undetermined Nonspecific ST-T wave changes Abnormal ECG COMPARED TO PRIOR ELECTROCARDIOGRAM, ST-T wave changes are much more marked. PREVIOUS TRACING : 06/23/2016 16.42 DOCTOR: Christos Reid Interpretating Date/Time 09/18/2016 13:45:54
[2016-09-18] MEDS: PANTOPRAZOLE SODIUM 40 MG VIAL IV PUSH SCH ×2 (16:47→18:20)
[2016-09-18] MEDS: CETIRIZINE HCL 10 MG TAB PO SCH (21:00)
[2016-09-18] MEDS: SERTRALINE HCL 100 MG TAB PO SCH (21:00)
[2016-09-18] MEDS: ACETAMINOPHEN/HYDROcodone 325 MG/5 MG TAB PO PRN (21:31)
[2016-09-19] VITALS (8 sets, daily range): BP systolic 112–125; BP diastolic 57–67; PULSE 81–89; RESP 18–20; TEMP 96.2–98.9; O2SAT 94–97
[2016-09-19] MEDS: D5-1/2 NS + KCL 20 MEQ INJ 1,000 ML IV SCH ×3 (00:13→22:43)
[2016-09-19] MEDS: SUCRALFATE 1 GM/10 ML CUP PO SCH ×4 (06:21→21:00)
[2016-09-19] MEDS: PANTOPRAZOLE SODIUM 40 MG VIAL IV PUSH SCH ×2 (06:21→17:34)
[2016-09-19] MEDS: LISINOPRIL 10 MG TAB PO SCH (09:00)
[2016-09-19] MEDS: ASPIRIN EC 81 MG TABEC PO SCH (09:00)
[2016-09-19] MEDS: LACTOBACILLUS ACIDOPHILUS TAB PO SCH ×2 (09:00→21:00)
[2016-09-19] MEDS: CALAMINE/PRAMOXINE LOTION 180 ML BTL TOPICAL SCH ×2 (10:28→21:00)
[2016-09-19] MEDS: DRONABINOL 5 MG CAP PO SCH ×2 (10:28→15:30)
[2016-09-19] MEDS: SODIUM CHLORIDE 0.9% FLUSH 5 ML FLUSH FLUSH SCH ×2 (10:30→21:00)
[2016-09-19] MEDS: MUPIROCIN 2% CREAM 15 GM TOPICAL SCH ×2 (10:31→21:00)
--- NOTE | 2016-09-19 14:33 | HHI.GIFU ---
Subjective Remarks 70 yo female resting in bed. Reports she continues to have N/V. States she unable to tolerate PO intake. Continues to have abdominal pain "all over" per patient. (Julia Thao) Objective Vitals I&O Vital Signs Date Time Temp Pulse Resp B/P Pulse Ox O2 Delivery O2 Flow Rate FiO2 09/19/16 12:27 97.7 81 20 125/61 94 09/19/16 08:25 96.4 83 20 112/58 97 09/19/16 08:00 82 09/19/16 04:00 96.9 81 20 125/62 97 09/19/16 00:00 97.7 87 20 120/57 97 09/18/16 20:00 98.1 84 20 145/67 96 09/18/16 19:00 82 09/18/16 15:35 97.4 82 20 128/60 97 I/O 09/18/16 09/18/16 09/18/16 09/19/16 09/19/16 09/19/16 07:00 15:00 23:00 07:00 15:00 23:00 Intake Total 240 ml 60 ml 2411 ml Output Total 145 ml Balance 95 ml 60 ml 2411 ml Intake Oral 240 ml 60 ml IV Total 2411 ml Output Urine Total 145 ml # Voids 5 1 # Bowel Movements 2 67 0 Laboratory Laboratory Tests Test 09/15/16 09/16/16 12:31 09:57 Sodium Level 144 MEQ/L Potassium Level 5.0 MEQ/L Chloride Level 112 MEQ/L Carbon Dioxide Level 23.7 MEQ/L Anion Gap 8 MEQ/L Blood Urea Nitrogen 23 MG/DL Creatinine 0.99 MG/DL Estimat Glomerular Filtration 55 ML/MIN Rate Random Glucose 78 MG/DL Calcium Level 8.5 MG/DL Prothrombin Time 11.8 SEC Prothromb Time International 1.1 RATIO Ratio Activated Partial 21.2 SEC Thromboplast Time Imaging Last Impressions Chest X-Ray 09/18/16 0000 Signed Impressions: Service Date/Time: Sunday, September 18, 2016 11:51 - CONCLUSION: Tiny bilateral pleural effusions. Mary Florez MD Abdomen/Pelvis CT 09/08/16 0000 Signed Impressions: Service Date/Time: Thursday, September 08, 2016 21:55 - CONCLUSION: 1. No acute findings within the abdomen and pelvis. Colonic diverticulosis without diverticulitis. Previous gastric bypass surgery. 2. Small left-sided pleural effusion with mild basilar atelectasis. 3. Atrophic left kidney. Dillon Romero MD Hip MRI 07/05/16 0000 Signed Impressions: Service Date/Time: Tuesday, July 05, 2016 10:51 - CONCLUSION: 1. There is osteopenia primary degenerative changes at both hips, left greater than right. 2. Prominent osteophyte along the inferior articulating surface of the proximal left femur. 3. Nonspecific edema in the gluteus and hamstring muscles. 4. No acute bony fracture. Javier Fishman MD Lower Extremity Ultrasound 06/29/16 0000 Signed Impressions: Service Date/Time: Wednesday, June 29, 2016 10:07 - CONCLUSION: Negative for deep venous thrombosis. Alfredo Sanders MD FACR Cervical Spine MRI 06/27/16 0000 Signed Impressions: Service Date/Time: Monday, June 27, 2016 11:09 - CONCLUSION: Mild degenerative changes otherwise unremarkable cervical spine. Anselmo Leavitt MD Thoracic Spine MRI 06/25/16 0000 Signed Impressions: Service Date/Time: June 19:36 - CONCLUSION: 1. No fracture or subluxation of the thoracic spine. 2. Mild and fairly diffuse degenerative changes as above. 3. Mild left foraminal encroachment at T8/T9 and T9/T10. 4. No significant spinal stenosis at any level. 5. Incidentally seen tiny right and small left pleural effusions, nonspecific. Jeevan Arreola MD Lumbar Spine MRI 06/25/16 0000 Signed Impressions: Service Date/Time: June 19:36 - CONCLUSION: 1. Multilevel lumbar degenerative changes as detailed above. 2. Mild spinal stenosis at L3/L4 without evidence of transiting nerve root impingement. 3. Mild to moderate spinal stenosis at L4/L5 and possibly with mild mass effect/impingement on the transiting left L5 nerve root within the subarticular recess. 4. Mild bilateral foraminal encroachment L3/L4 and L4/L5. Mild to moderate bilateral foraminal encroachment at L5/S1. 5. No fracture or subluxation of the lumbar spine. Jeevan Arreola MD Hip and Pelvis X-Ray 06/25/16 0000 Signed Impressions: Service Date/Time: June 20:27 - CONCLUSION: Moderate to severe left hip' right is with considerable osteophytosis and an apparent large inferior joint body. No fracture or subluxation. Jeevan Arreola MD Physical Exam HEENT: PERRLA. Normocephalic; atraumatic; no jaundice. CHEST: CTA, diminished CARDIAC: RRR ABDOMEN: Obese, soft, nondistended, mild RUQ/LUQ/epigastric tenderness on palpation, no hepatosplenomegaly; bowel sounds x 4 quadrants. EXTREMITIES: Generalized edema. SKIN: Generalized pallor [employer]: A & O x 3. (Julia Thao) Assessment and Plan Plan ASSESSMENT: - Persistent N/V, ?gastroparesis. Of note, patient is s/p gastric bypass 5 years ago. She was evaluated with EGD/Colonoscopy (09/01/16)---> esophageal ulcer and anatomy C/W gastric bypass, colonoscopy showed diverticulosis, no sign of colitis. Pathology acute esophagitis, no fungal organisms are present. Abdomen/Pelvis CT (09/08/16)-----> 1. No acute findings within the abdomen and pelvis. Colonic diverticulosis without diverticulitis. Previous gastric bypass surgery. 2. Small left-sided pleural effusion with mild basilar atelectasis. 3. Atrophic left kidney. Still having persistent nausea- no vomiting. She continues to refuse all po meds except Atarax and Lortab. She still is not eating any po diet. States that she cannot. [facility] is following and has recommend if PPN needed, CLINIMIX E 4.25/5 @ 70 mls/hr with 20% lipids @ 10 mls/hr. IR unable to place G/J tube secondary to hx of gastric bypass. [facility] recommends Vital 1.5 @ 45mls/hr goal for tube feeding. [facility] evaluated patient for J tube placement (IR unable to place secondary to hx of gastric bypass). Per GS note--They would like to consider obtaining upper GI to evaluate gastric bypass and pouch. They plan to do likely a gastrostomy tube in the remnant stomach versus possible jejunostomy tube on Wednesday. - Decreased appetite, refusing Marinol. States she cannot eat because of nausea. - Elevated LFTs. Stable. - Esophageal ulcer. Protonix. - Anemia, Hemoccult positive stool. S/P 2 units PRBC, HH has remained stable since. EGD/Colonoscopy as above. - CDiff colitis, s/p oral vanco, dificid. Colonoscopy without any signs of colitis. States diarrhea improved. Repeat CDiff stool ordered on 09/10 but nothing has resulted. Reports 2 BMs PLAN: - Upper EGD to evaluate gastric bypass and pouch. - GS plans to do likely a gastrostomy tube in the remnant stomach versus possible jejunostomy tube on Wednesday. - Cont. Scopolamine - Cont. Protonix - Cont. Zofran prn - Pt refusing all po meds except Lortab, Zoloft, Atarax - [facility] recommends Vital 1.5 @ 45 mls/hr goal - Further recommendations to follow based on results of above Patient seen and examined by Dr. Cheatham and myself and this note is written on his behalf (Julia Thao) Physician Comments Patient seen and examined Continue with current supportive care Highly recommend that a jejunal feeding tube be placed surgically and not a tube into the gastric remanent so as not to potentially cause aspiration from reflux The whole idea behind this consult was to get a J jejunal feeding tube and not a feeding tube into the gastric remanent (Jc Cheatham MD) Julia Thao Sep 19, 2016 14:33 Jc Cheatham MD Sep 19, 2016 17:49
--- NOTE | 2016-09-19 17:28 | HHI.PR ---
Subjective Remarks f/u for nausea patient refusing oral medication. she has no complaints. She is AAO X 3. Per SAP TRAINER she is hallucinating. She has not been hallucinating with me. Per SAP TRAINER stating that patient was talking to a little girl in the room. otherwise no acute events. Objective Vitals Vital Signs Date Time Temp Pulse Resp B/P Pulse Ox O2 Delivery O2 Flow Rate FiO2 09/19/16 16:35 98.9 84 18 122/67 96 09/19/16 12:27 97.7 81 20 125/61 94 09/19/16 08:25 96.4 83 20 112/58 97 09/19/16 08:00 82 09/19/16 04:00 96.9 81 20 125/62 97 09/19/16 00:00 97.7 87 20 120/57 97 09/18/16 20:00 98.1 84 20 145/67 96 09/18/16 19:00 82 I/O 09/18/16 09/18/16 09/18/16 09/19/16 09/19/16 09/19/16 06:59 14:59 22:59 06:59 14:59 22:59 Intake Total 240 ml 60 ml 2411 ml Output Total 145 ml Balance 95 ml 60 ml 2411 ml Intake Oral 240 ml 60 ml IV Total 2411 ml Output Urine Total 145 ml # Voids 5 1 # Bowel Movements 2 67 0 Result Diagram: 09/15/16 1231 Objective Remarks Gen morbidly obese CV RRR. no r/m/g abd: soft NDNT. no peritoneal signs. Ext 5/5 LE strength Procedures none Medications and IVs Current Medications IV Flush 2 ml 2 ml UNSCH PRN IVF FLUSH AFTER USING IV ACCESS; Start 06/23/16 at 14:15; Stop 06/23/16 at 20:00; Status DC Sodium Chloride 1,000 ml @ 1,000 mls/hr Q1H ONCE IV Last administered on 15:37; Start 06/23/16 at 14:02; Stop 06/23/16 at 15:01; Status DC Ceftriaxone Sodium/Sodium Chloride (Rocephin Inj/NS Inj) 100 ml @ 200 mls/hr ONCE ONCE IV Last administered on 06/23/16 18:25; Start 06/23/16 at 18:00; Stop 06/23/16 at 18:29; Status DC IV Flush (NS Flush) 2 ml UNSCH PRN FLUSH FLUSH AFTER USING IV ACCESS Last administered on 07/25/16 18:44; Start 06/23/16 at 20:00 IV Flush (NS Flush) 2 ml BID FLUSH Last administered on 09/19/16 10:30; Start 06/23/16 at 21:00 Enoxaparin Sodium (Lovenox Inj) 40 mg Q24H SQ Last administered on 08/31/16 09 :20; Start 06/24/16 at 09:00; Status Hold Naloxone HCl 0.4 mg 0.4 mg UNSCH PRN IV SEE LABEL COMMENTS; Start 06/23/16 at 20:00 Levofloxacin/ Dextrose (Levaquin 750 Mg Premix Inj) 150 ml @ 100 mls/hr Q24H IV Last administered on 06/23/16 22:06; Start 06/23/16 at 21:00; Stop 06/24/16 at 09:56; Status DC Acetaminophen/ Hydrocodone Bitart ([place] 5-325 Mg) 1 tab Q6H PRN PO pain >5 Last administered on 06/23/16 22:31; Start 06/23/16 at 22:30; Stop 06/24/16 at 09:59; Status DC Nitrofurantoin Macrocrystals (Macrobid) 100 mg BIDPC PO Last administered on 10:28; Start 06/24/16 at 18:00; Stop 06/25/16 at 13:15; Status DC Amlodipine Besylate (Norvasc) 10 mg DAILY PO Last administered on 09/10/16 09: 27; Start 06/24/16 at 10:00 Aspirin (Ecotrin Ec) 81 mg DAILY PO Last administered on 09/10/16 09:27; Start 06/25/16 at 09:00 Famotidine (Pepcid) 20 mg BID PO Last administered on 07/09/16 09:23; Start at 21:00; Stop 07/09/16 at 15:35; Status DC Furosemide (Lasix) 20 mg DAILY PO Last administered on 09/10/16 09:28; Start 06/25/16 at 09:00; Status Hold Lisinopril (Prinivil) 20 mg DAILY PO Last administered on 08/13/16 09:45; Start 06/24/16 at 10:00; Stop 08/13/16 at 19:10; Status DC Meloxicam (Mobic) 7.5 mg BID PO Last administered on 07/08/16 10:10; Start 06/24/16 at 21:00; Stop 07/08/16 at 17:43; Status DC Potassium Chloride (KCl) 10 meq DAILY PO Last administered on 07/09/16 09:23; Start 06/25/16 at 09:00; Stop 07/09/16 at 14:35; Status DC Sertraline HCl (Zoloft) 200 mg HS PO Last administered on 09/17/16 21:43; Start 06/24/16 at 21:00 Diphenhydramine HCl (Benadryl) 25 mg Q6H PRN PO itching Last administered on 11:45; Start 06/25/16 at 18:00; Stop 06/30/16 at 14:15; Status DC Acetaminophen (Tylenol) 650 mg Q6H PRN PO PAIN SCALE 1 TO 2; Start 06/26/16 at 16:15 Acetaminophen/ Hydrocodone Bitart ([place] 5-325 Mg) 1 tab Q4H PRN PO PAIN SCALE 6 TO 10 Last administered on 09/18/16 21:31; Start 06/26/16 at 16:15 Acetaminophen/ Hydrocodone Bitart ([place] 7.5-325 Mg) 1 tab Q4H PRN PO PAIN SCALE 6 TO 10 Last administered on 08/05/16 15:19; Start 06/26/16 at 16:15; Stop 08/05/16 at 16:07; Status DC Calamine/Pramoxine (Caladryl Lotion) 1 applic Q12HR TOPICAL Last administered on 09/19/16 10:28; Start 06/27/16 at 09:00 Trimethoprim/ Sulfamethoxazole (Bactrim 400-80 Mg) 1 tab Q12HR PO Last administered on 07/08/16 10:12; Start 06/28/16 at 12:00; Stop 07/08/16 at 11:59 ; Status DC Cephalexin Monohydrate (Keflex) 250 mg Q8HR PO Last administered on 07/08/16 05:31; Start 06/28/16 at 14:00; Stop 07/08/16 at 13:59; Status DC Cetirizine HCl (ZyrTEC) 10 mg HS PO Last administered on 09/17/16 21:42; Start 06/29/16 at 21:00 Prednisone (Deltasone) 40 mg DAILY PO Last administered on 07/02/16 10:56; Start 06/29/16 at 10:00; Stop 07/02/16 at 09:59; Status DC Hydroxyzine HCl (Atarax) 10 mg Q6H PRN PO itching/anxiety Last administered on 07/02/16 11:03; Start 06/30/16 at 14:15; Stop 07/02/16 at 12:08; Status DC Hydroxyzine HCl (Atarax) 25 mg Q6H PRN PO ITCHING/ANXIETY Last administered on 07/08/16 17:16; Start 07/02/16 at 12:15; Stop 07/08/16 at 17:43; Status DC Metronidazole (Flagyl) 500 mg Q8HR PO Last administered on 07/17/16 21:05; Start 07/04/16 at 02:58; Stop 07/18/16 at 02:57; Status DC Lactobacillus Acidophilus (Lactinex) 1 tab Q12HR PO Last administered on 21:42; Start 07/04/16 at 21:00 Naloxone HCl (Narcan Inj) 0.4 mg UNSCH X1 PRN IV PUSH RESP DEPRESSION OR HYPOTENSION; Start 07/07/16 at 08:00; Stop 07/09/16 at 07:59; Status DC Ondansetron HCl (Zofran Inj) 4 mg Q6H PRN IV PUSH nausea Last administered on 17:08; Start 07/07/16 at 13:45; Stop 09/14/16 at 23:37; Status DC Nystatin (Mycostatin Cream) 1 applic Q12HR TOPICAL Last administered on 10:54; Start 07/07/16 at 15:00; Stop 07/13/16 at 13:48; Status DC Hydroxyzine HCl (Atarax) 50 mg Q6H PRN PO ITCHING/ANXIETY Last administered on 09/18/16 12:49; Start 07/08/16 at 18:15 Famotidine (Pepcid) 10 mg BID PO Last administered on 07/23/16 08:56; Start at 21:00; Stop 09/08/16 at 10:36; Status DC Miscellaneous (Pill Splitter) 1 ea UNSCH PRN OTHER SEE LABEL COMMENTS Last administered on 07/11/16 08:23; Start 07/09/16 at 15:45 Potassium Chloride (KCl) 10 meq ONCE ONCE PO Last administered on 07/10/16 17 :52; Start 07/10/16 at 17:30; Stop 07/10/16 at 17:31; Status DC Potassium Chloride (KCl) 10 meq ONCE ONCE PO Last administered on 07/11/16 11 :38; Start 07/11/16 at 11:30; Stop 07/11/16 at 11:31; Status DC Potassium Chloride (KCl) 20 meq ONCE ONCE PO Last administered on 07/13/16 11 :46; Start 07/13/16 at 12:00; Stop 07/13/16 at 12:01; Status DC Nystatin (Mycostatin Cream) 1 applic Q6HR TOPICAL Last administered on 23:11; Start 07/13/16 at 13:30; Stop 08/04/16 at 10:02; Status DC Mupirocin (Bactroban 2% Cream) 1 applic Q12HR TOPICAL Last administered on 09/19 10:31; Start 07/13/16 at 13:30 Nystatin (Mycostatin Liq) 5 ml QID SWISH-SWAL Last administered on 07/27/16 10 :16; Start 07/14/16 at 18:00; Stop 07/28/16 at 17:59; Status DC Promethazine HCl (Phenergan Inj) 25 mg ONCE ONCE IM Last administered on 21:30; Start 07/25/16 at 21:30; Stop 07/25/16 at 21:31; Status DC Metronidazole (Flagyl) 500 mg Q8HR PO ; Start 07/26/16 at 16:15; Stop 07/26/16 at 16:24; Status DC Vancomycin HCl (VANCOMYCIN for oral use only) 250 mg QID PO Last administered on 08/12/16 12:32; Start 07/26/16 at 18:00; Stop 08/12/16 at 14:30; Status DC Metoclopramide HCl 10 mg 10 mg ACHS PRN PO NAUSEA OR VOMITING Last administered on 07/31/16 22:02; Start 07/26/16 at 16:30; Stop 08/07/16 at 14:14 ; Status DC Magnesium Sulfate/ Dextrose (Magnesium Sulfate 1 Gm Premix) 100 ml @ 100 mls/ hr Q1H IV Last administered on 07/30/16 21:21; Start 07/30/16 at 18:00; Stop 07/30/16 at 19:59; Status DC Potassium Chloride (KCl) 60 meq ONCE ONCE PO Last administered on 07/30/16 18: 46; Start 07/30/16 at 17:15; Stop 07/30/16 at 17:16; Status DC Potassium Chloride (KCl) 40 meq ONCE ONCE PO Last administered on 08/05/16 15 :04; Start 08/05/16 at 14:30; Stop 08/05/16 at 14:31; Status DC Acetaminophen/ Hydrocodone Bitart ([place] 10-325 Mg) 1 tab Q4H PRN PO pain 6-10 Last administered on 08/07/16 09:45; Start 08/05/16 at 16:15; Stop 08/07/16 at 14:11; Status DC Morphine Sulfate (Morphine Inj) 2 mg Q3H PRN IV PUSH breakthrough pain; Start 08/05/16 at 16:15; Stop 08/06/16 at 15:49; Status DC Ketorolac Tromethamine (Toradol Inj) 15 mg Q6HR IV PUSH Last administered on 17:15; Start 08/06/16 at 18:00; Stop 08/09/16 at 00:01; Status DC Metoclopramide HCl (Reglan Inj) 5 mg TIDAC IV PUSH Last administered on 15:16; Start 08/07/16 at 17:00; Stop 09/13/16 at 17:59; Status DC Senna/Docusate Sodium (Leti-Colace) 2 tab BID PO Last administered on 09:52; Start 08/09/16 at 12:15; Stop 09/11/16 at 18:29; Status DC Potassium Chloride (KCl) 40 meq ONCE ONCE PO Last administered on 08/09/16 12 :54; Start 08/09/16 at 12:30; Stop 08/09/16 at 12:31; Status DC Vancomycin HCl (VANCOMYCIN for oral use only) 500 mg QID PO Last administered on 08/18/16 21:37; Start 08/12/16 at 18:00; Stop 08/19/16 at 08:47; Status DC Lisinopril (Prinivil) 10 mg DAILY PO Last administered on 09/10/16 09:27; Start 08/14/16 at 09:00 Potassium Chloride (KCl) 30 meq ONCE ONCE PO Last administered on 08/14/16 22 :24; Start 08/14/16 at 19:00; Stop 08/14/16 at 19:01; Status DC Dronabinol (Marinol) 2.5 mg ONCE ONCE PO Last administered on 08/15/16 14:15 ; Start 08/15/16 at 12:45; Stop 08/15/16 at 12:46; Status DC Dronabinol (Marinol) 5 mg BID@11,16 PO Last administered on 09/10/16 16:43; Start 08/15/16 at 16:00 Vancomycin HCl (VANCOMYCIN for oral use only) 250 mg Q12HR PO Last administered on 08/20/16 09:46; Start 08/19/16 at 09:00; Stop 08/20/16 at 16:09 ; Status DC Vancomycin HCl (VANCOMYCIN for oral use only) 250 mg Q6HR PO Last administered on 08/20/16 17:04; Start 08/20/16 at 18:00; Stop 08/20/16 at 19:11; Status DC Fidaxomicin (Dificid) 200 mg BID PO Last administered on 08/30/16 09:41; Start 08/20/16 at 21:00; Stop 08/30/16 at 20:59; Status DC Cholestyramine Resin 4 gm 4 gm Q8HR PO Last administered on 09/04/16 20:52; Start 08/23/16 at 14:00; Stop 09/08/16 at 10:36; Status DC Magnesium Sulfate/ Dextrose 100 ml @ 100 mls/hr Q1H IV Last administered on 12:18; Start 08/24/16 at 09:30; Stop 08/24/16 at 11:29; Status DC Potassium Chloride 100 ml @ 50 mls/hr Q2H IV Last administered on 08/24/16 12: 22; Start 08/24/16 at 09:30; Stop 08/24/16 at 13:29; Status DC Potassium Chloride 100 ml @ 50 mls/hr ONCE ONCE IV Last administered on 22:23; Start 08/24/16 at 19:00; Stop 08/24/16 at 20:59; Status DC Potassium Chloride 100 ml @ 50 mls/hr Q2H IV Last administered on 08/25/16 12: 53; Start 08/25/16 at 09:15; Stop 08/25/16 at 13:14; Status DC Potassium Chloride 100 ml @ 100 mls/hr Q1H IV Last administered on 08/26/16 16 :48; Start 08/26/16 at 13:00; Stop 08/26/16 at 16:06; Status DC Sodium Chloride 500 ml @ 500 mls/hr BOLUS ONCE IV Last administered on 01:34; Start 08/29/16 at 01:30; Stop 08/29/16 at 02:29; Status DC Potassium Chloride/Sodium Chloride (NS + KCl 20 Meq Inj) 1,000 ml @ 70 mls/hr [id number] IV Last administered on 08/30/16 11:47; Start 08/30/16 at 10:00; Stop at 00:17; Status DC Polyethylene Glycol/ Electrolytes (Colyte Liq) 4,000 ml ONCE ONCE PO Last administered on 08/31/16 18:54; Start 08/31/16 at 18:15; Stop 08/31/16 at 18:16 ; Status DC Magnesium Citrate (Citroma Liq) 600 ml NOW ONCE PO Last administered on 05:48; Start 09/01/16 at 05:45; Stop 09/01/16 at 05:46; Status DC Sodium Biphosphate/ Sodium Phosphate 266 ml 266 ml ONCE ONCE RECTAL Last administered on 09/01/16 08:48; Start 09/01/16 at 08:00; Stop 09/01/16 at 08:01 ; Status DC Lactated Ringer's 1,000 ml @ 30 mls/hr Q24H PRN IV SEE LABEL COMMENTS; Start at 08:45; Stop 09/01/16 at 12:08; Status DC Sodium Chloride (NS 500 ml Inj) 500 ml @ 30 mls/hr [id number] PRN IV SEE LABEL COMMENTS; Start 09/01/16 at 08:45; Stop 09/01/16 at 12:08; Status DC Metoprolol Tartrate (Lopressor) 25 mg HOOKER MACHINE TENDER PRN PO SEE LABEL COMMENTS; Start 09/01/16 at 08:45; Stop 09/04/16 at 08:44; Status DC Povidone Iodine (Betadine 5% Antisepsis Kit) 1 applic HOOKER MACHINE TENDER PRN EACH NARE SEE LABEL COMMENTS; Start 09/01/16 at 08:45; Stop 09/04/16 at 08:44; Status DC Chlorhexidine Gluconate (Chlorhexidine 2% Cloth) 3 pack HOOKER MACHINE TENDER PRN TOPICAL SEE LABEL COMMENTS; Start 09/01/16 at 08:45; Stop 09/04/16 at 08:44; Status DC Insulin Human Regular (NovoLIN R INJ) See Protocol Table ... HOOKER MACHINE TENDER PRN SQ SEE PROTOCOL TABLE; Start 09/01/16 at 08:45; Stop 09/04/16 at 08:44; Status DC Pantoprazole Sodium 40 mg 40 mg DAILY PO Last administered on 09/07/16 09:55; Start 09/01/16 at 12:00; Stop 09/08/16 at 10:36; Status DC Sodium Chloride 500 ml @ 500 mls/hr BOLUS ONCE IV Last administered on 12:00; Start 09/01/16 at 12:00; Stop 09/01/16 at 12:59; Status DC Potassium Chloride/Sodium Chloride (NS + KCl 20 Meq Inj) 1,000 ml @ 84 mls/hr [id number] IV Last administered on 09/02/16 22:07; Start 09/01/16 at 12:00; Stop 09/03/16 at 21:17; Status DC Miscellaneous Information ALL NURSING DEPARTME... UNSCH PRN .XX SEE LABEL COMMENTS; Start 09/01/16 at 13:00; Stop 09/02/16 at 12:59; Status DC Propofol (Diprivan 200 Mg/20 ml Inj) 160 mg STK-MED ONCE IV ; Start 09/01/16 at 10:57; Stop 09/01/16 at 13:10; Status DC Pantoprazole Sodium (Protonix) 40 mg BID PO Last administered on 09/10/16 20: 43; Start 09/08/16 at 21:00; Stop 09/13/16 at 17:09; Status DC Sucralfate (Carafate Liq) 1 gm ACHS PO Last administered on 09/19/16 06:21; Start 09/08/16 at 11:00 Magnesium Citrate (Citroma Liq) 300 ml ONCE ONCE PO Last administered on 13:16; Start 09/08/16 at 12:00; Stop 09/08/16 at 12:40; Status DC Magnesium Citrate (Citroma Liq) 300 ml ONCE ONCE PO Last administered on 17:48; Start 09/08/16 at 18:00; Stop 09/08/16 at 18:01; Status DC Bisacodyl (Dulcolax Ec) 10 mg DAILY@18,21 PO Last administered on 09/08/16 22: 33; Start 09/08/16 at 18:00; Stop 09/08/16 at 21:01; Status DC Diatrizoate Meglum/ Diatrizoate Sod (Md Gastroview Liq) 18 ml ONCE ONCE PO ; Start 09/08/16 at 18:24; Stop 09/08/16 at 19:12; Status DC Scopolamine (Transderm-Scop 1.5 Mg Patch.72 Hr) 1 patch Q3D T-DERMAL Last administered on 09/17/16 17:27; Start 09/11/16 at 18:00 Miscellaneous Information 1 1 Q3D T-DERMAL Last administered on 09/14/16 18:00 ; Start 09/14/16 at 18:00 Sodium Chloride 500 ml @ 50 mls/hr Q10H IV Last administered on 09/11/16 18: 47; Start 09/11/16 at 18:15; Stop 09/12/16 at 04:14; Status DC Potassium Chloride 100 ml @ 100 mls/hr Q1H IV Last administered on 09/12/16 15:00; Start 09/12/16 at 13:00; Stop 09/12/16 at 15:59; Status DC Potassium Chloride/Dextrose/ Sod Cl (D5-1/2 NS + KCl 20 Meq Inj) 1,000 ml @ 84 mls/hr [id number] IV Last administered on 09/19/16 00:13; Start 09/12/16 at 12:15 Potassium Chloride 30 meq 30 meq ONCE ONCE PO ; Start 09/13/16 at 09:15; Stop 09/13/16 at 10:45; Status DC Potassium Chloride (KCl 10 Meq Premix Inj) 100 ml @ 100 mls/hr BOLUS ONCE IV Last administered on 09/13/16 13:12; Start 09/13/16 at 10:45; Stop 09/13/16 at 11:44; Status DC Pantoprazole Sodium (Protonix Inj) 40 mg Q12H IV PUSH Last administered on 09/19 06:21; Start 09/13/16 at 18:00 Promethazine HCl (Phenergan) 12.5 mg Q6H PRN PO nausea; Start 09/13/16 at 18:00 Ondansetron HCl 8 mg 8 mg Q6H PRN IV PUSH nausea; Start 09/15/16 at 01:45; Status UNV Ondansetron HCl 8 mg/Dextrose 54 ml @ 216 mls/hr Q6H PRN IV PUSH NAUSEA OR VOMITING; Start 09/14/16 at 23:45; Stop 09/15/16 at 05:36; Status DC Ondansetron HCl/ Dextrose (Zofran Inj/D5W Inj) 54 ml @ 216 mls/hr Q6H PRN IV NAUSEA OR VOMITING Last administered on 09/17/16 17:19; Start 09/15/16 at 05:36 A/P Problem List: (1) Total self-care deficit ICD Code: R41.89 Status: Acute (2) Sacral pressure ulcer ICD Code: L89.159 Status: Chronic (3) Subclinical hypothyroidism ICD Code: E03.9 Status: Acute (4) Radiculopathy of lumbar region ICD Code: M54.16 Status: Acute Assessment and Plan Mrs. Arreola is a 70-year-old female with a known history of hypertension, obesity , arthritis, status post gastric bypass who presented to the ED on 06/23/16 with complaints of generalized weakness for two weeks. Apparently patient had been discharged on 06/08/16 with home health care and sustained a fall at home with progressive weakness. Supposedly she is wheelchair bound at home and unable to transfer independently. Poor appetite secondary to nausea: -GI and dietitian is following. on Zofran IV PRN. Continue IV Reglan. On scopolamine patch Continue Marinol for appetite stimulant. Full liquids per GI. -GI recommended GJ. IR unable to place one since patient had gastric bypass in the past. -Surgery consulted. -Per surgery they recommended an upper GI to evaluate gastric bypass and pouch. They stated they will likely do a gastrotomy tube in the remnant of the stomach versus possible jejunostomy tube on Wednesday. -GI will do an EGD. -Asking for surgical clearance. Labs already obtained. CXR shows mild B/L pleural effusion with EKG changes from last EKG. consult [facility] Supervisor for medical clearance Hypokalemia -resolved. Epigastric pain likely secondary to ulcer -Seem to improve. - Continue Protonix. Sacral pressure ulcer, resolved - Encourage repositioning patient every 2 hours. Specialty mattress continued. C. difficile diarrhea -Diarrhea is currently improved. Last BM 09/05. Last Tox PCR positive on 08/19. Has previously been treated with Flagyl, oral vancomycin. ID previously consulted on 08/20 with recommendations to discontinue Vanco and begin Dificid, completed course of Dificid. Generalized weakness - Continue physical therapy. Will need nursing facility at discharge, case management following, but patient declined. she stated she wants to go home. Lumbar radiculopathy - Neurosurgery signed off, no surgical intervention recommended at this time. Control pain [place] PRN per pain scale. Anemia, GI bleed - Stool Hemoccult is positive on 08/30. Status post EGD, which showed esophageal ulcer. S/p transfusion 2 units on 09/02. Hb stable. Other chronic medical history includes osteoarthritis - CKD stage III are stable at this time. ? hallucination -asymptomatic with me. -consult Psychiatrist. DVT prophylaxis: SCDs/TEDs. Discharge Planning Most likely surgery on Wednesday. Once feeding tube place and able to obtain TFs can be d/c to home. patient already has hospital bed at home. Problem Qualifiers (1) Sacral pressure ulcer: Qualified Code: L89.151 - Decubitus ulcer of sacral region, stage 1 Paola Carballo MD Sep 19, 2016 17:28
[2016-09-19] MEDS: CETIRIZINE HCL 10 MG TAB PO SCH (21:00)
[2016-09-19] MEDS: SERTRALINE HCL 100 MG TAB PO SCH (21:00)
[2016-09-20] VITALS (8 sets, daily range): BP systolic 109–125; BP diastolic 54–75; PULSE 79–86; RESP 20; TEMP 95.6–97.7; O2SAT 93–97
[2016-09-20] MEDS: PANTOPRAZOLE SODIUM 40 MG VIAL IV PUSH SCH ×2 (06:38→17:29)
[2016-09-20] MEDS: SUCRALFATE 1 GM/10 ML CUP PO SCH ×4 (06:39→21:00)
[2016-09-20] MEDS ORDERED: LACTATED RINGER'S 1000 ML IV PRN (08:15)
[2016-09-20] MEDS ORDERED: INSULIN HUMAN REGULAR 1,000 UNITS/10 ML VIAL SQ PRN (08:15)
[2016-09-20] MEDS ORDERED: CHLORHEXIDINE GLUCONATE 2 % 1 PACK (2 CLOTHS) TOPICAL PRN (08:15)
[2016-09-20] MEDS ORDERED: SODIUM CHLORID 0.9% 500 ML IV PRN (08:15)
[2016-09-20] MEDS ORDERED: POVIDONE IODINE 5% (ANTISEPSIS KIT) 4 APPLICATIONS EACH NARE PRN (08:15)
[2016-09-20] MEDS ORDERED: METOPROLOL TARTRATE 25 MG TAB PO PRN (08:15)
[2016-09-20] MEDS: LACTOBACILLUS ACIDOPHILUS TAB PO SCH ×2 (09:00→21:00)
[2016-09-20] MEDS: CALAMINE/PRAMOXINE LOTION 180 ML BTL TOPICAL SCH ×2 (09:00→21:20)
[2016-09-20] MEDS: LISINOPRIL 10 MG TAB PO SCH (09:00)
[2016-09-20] MEDS: ASPIRIN EC 81 MG TABEC PO SCH (09:00)
[2016-09-20] MEDS: MUPIROCIN 2% CREAM 15 GM TOPICAL SCH ×2 (09:00→21:20)
[2016-09-20] MEDS: SODIUM CHLORIDE 0.9% FLUSH 5 ML FLUSH FLUSH SCH ×2 (09:17→21:00)
[2016-09-20] MEDS: D5-1/2 NS + KCL 20 MEQ INJ 1,000 ML IV SCH ×2 (10:52→21:20)
[2016-09-20] MEDS: ONDANSETRON INJ 8 MG in DEXTROSE 5% IN WATER INJ 50 ML IV PRN ×4 (10:52→17:29)
[2016-09-20] MEDS: DRONABINOL 5 MG CAP PO SCH ×2 (11:00→16:00)
--- NOTE | 2016-09-20 14:05 | HHI.PR ---
Subjective Remarks No acute events overnight. Vital signs remained stable. Patient scheduled to undergo surgery tomorrow. She states she overall feels slightly better than yesterday. She denies any chest pain, shortness of breath, or calf pain. No fevers. No hallucinations. Objective Vitals Vital Signs Date Time Temp Pulse Resp B/P Pulse Ox O2 Delivery O2 Flow Rate FiO2 09/20/16 12:20 97.5 79 20 122/75 95 09/20/16 12:11 84 09/20/16 07:49 95.6 86 20 113/59 97 09/20/16 04:00 97.7 81 20 117/58 96 09/20/16 00:00 97.5 84 20 109/54 97 09/19/16 20:00 96.2 89 20 114/57 97 09/19/16 19:00 85 09/19/16 16:35 98.9 84 18 122/67 96 I/O 09/19/16 09/19/16 09/19/16 09/20/16 09/20/16 09/20/16 07:00 15:00 23:00 07:00 15:00 23:00 Intake Total 60 ml 2411 ml 240 ml 60 ml 1216 ml Balance 60 ml 2411 ml 240 ml 60 ml 1216 ml Intake Oral 60 ml 240 ml 60 ml IV Total 2411 ml 1216 ml # Voids 1 1 2 # Bowel Movements 0 0 0 Objective Remarks GEN: Obese female laying in hospital bed. No acute distress. CV: Regular rate and rhythm without obvious murmurs LUNGS: Clear to auscultation bilaterally AP. Normal respiratory effort. No wheezes, rales, rhonchi. GI: Soft, nontender, nondistended. No palpable masses. Bowel sounds WNL. EXT: No edema. NEURO/PSYCH: Afocal. Awake, alert, and oriented x3. Appropriate insight and judgment. Procedures none A/P Problem List: (1) Total self-care deficit ICD Code: R41.89 Status: Acute (2) Sacral pressure ulcer ICD Code: L89.159 Status: Chronic (3) Subclinical hypothyroidism ICD Code: E03.9 Status: Acute (4) Radiculopathy of lumbar region ICD Code: M54.16 Status: Acute Assessment and Plan Mrs. Arerola is a 70-year-old female with a known history of hypertension, obesity , arthritis, status post gastric bypass who presented to the ED on 06/23/16 with complaints of generalized weakness for two weeks. Apparently patient had been discharged on 06/08/16 with home health care and sustained a fall at home with progressive weakness. Supposedly she is wheelchair bound at home and unable to transfer independently. Poor appetite secondary to nausea: -GI and dietitian is following. on Zofran IV PRN. Continue IV Reglan. On scopolamine patch Continue Marinol for appetite stimulant. Full liquids per GI. -GI recommended GJ. IR unable to place one since patient had gastric bypass in the past. -Surgery consulted. -Per surgery they recommended an upper GI to evaluate gastric bypass and pouch. They stated they will likely do a gastrotomy tube in the remnant of the stomach versus possible jejunostomy tube on Thursday 09/21. -GI will do an EGD. -Asking for surgical clearance. Labs already obtained. CXR shows mild B/L pleural effusion with EKG changes from last EKG. consult Secretary To The Vice President for medical clearance Hypokalemia -resolved. Epigastric pain likely secondary to ulcer -Seem to improve. - Continue Protonix. Sacral pressure ulcer, resolved - Encourage repositioning patient every 2 hours. Specialty mattress continued. C. difficile diarrhea -Diarrhea is currently improved. Last BM 09/05. Last Tox PCR positive on 08/19. Has previously been treated with Flagyl, oral vancomycin. ID previously consulted on 08/20 with recommendations to discontinue Vanco and begin Dificid, completed course of Dificid. Generalized weakness - Continue physical therapy. Will need nursing facility at discharge, case management following, but patient declined. she stated she wants to go home. Lumbar radiculopathy - Neurosurgery signed off, no surgical intervention recommended at this time. Control pain [place] PRN per pain scale. Anemia, GI bleed - Stool Hemoccult is positive on 08/30. Status post EGD, which showed esophageal ulcer. S/p transfusion 2 units on 09/02. Hb stable. Other chronic medical history includes osteoarthritis - CKD stage III are stable at this time. Report of possible hallucination 09/19 -Has remained asymptomatic since that time -consult Psychiatrist. DVT prophylaxis: SCDs/TEDs. Discharge Planning Anticipate surgery on Wednesday pending clearance by cardiology. Once feeding tube place and able to obtain TFs can be d/c to home. Patient already has hospital bed at home. Problem Qualifiers (1) Sacral pressure ulcer: Qualified Code: L89.151 - Decubitus ulcer of sacral region, stage 1 Jackson He MD R3 Sep 20, 2016 14:05
--- NOTE | 2016-09-20 16:07 | PD.CONS ---
Provisional Diagnosis Admission Date Jul 09, 2016 at 03:40 [place]. Unspecified psychosis History of Present Illness Service Psychiatry Consult Requested By Primary Care Physician Unknown HPI The patient is a 70-year-old woman, domicile with in [facility], unemployed, supported by [facility], with psychiatric history of anxiety and depression , no previous psychiatric hospitalizations, no previous suicidal attempts, she is on Zoloft 200 mg prescribed by PCP, extensive medical history of hypertension , obesity, arthritis, status post gastric bypass, wheelchair-bound, who presented to the ED on 06/23/16 with complaints of generalized weakness for two weeks. Apparently patient had been discharged on 06/08/16 with home health care and sustained a fall at home with progressive weakness. Consulted to psychiatry for new-onset auditory hallucinations. On second evaluation today patient is calm, cooperative and pleasant. Patient reports good mood, denies anxiety, denies depressive symptoms, denies hopelessness, denies helplessness, denies worthlessness, denies poor self-esteem, denies suicidal or homicidal ideation. Patient does report about a week of visual hallucinations. Patient says that visual hallucination comes and go, she has been once or twice per day , she usually sees people, kids, coming inside her room. She does not feel disturbed by the perceptual disturbances, she doesn't feel anxious or distressed. Patient states that she is insightful about the unreal nature of hallucinations. She denies paranoia, she denies auditory hallucinations, she denies delusions, flight of ideas. Patient is fully oriented 3, no fluctuation of consciousness, no attention deficit observed. Patient denies the use of illicit drugs and alcohol. Review of Systems Constitutional: DENIES: Diaphoretic episodes, Fatigue, Fever, Weight gain, Weight loss, Chills, Dizziness, Change in appetite, Night Sweats Endocrine: DENIES: Abnorml menstrual pattern, Heat/cold intolerance, Polydipsia , Polyuria, Polyphagia Eyes: DENIES: Blurred vision, Diplopia, Eye inflammation, Eye pain, Vision loss , Photosensitivity, Double Vision Ears, nose, mouth, throat: DENIES: Tinnitus, Hearing loss, Vertigo, Nasal discharge, Oral lesions, Throat pain, Hoarseness, Ear Pain, Running Nose, Epistaxis, Sinus Pain, Toothache, Odynophagia Respiratory: DENIES: Apneas, Cough, Snoring, Wheezing, Hemoptysis, Sputum production, Shortness of breath Cardiovascular: DENIES: Chest pain, Palpitations, Syncope, Dyspnea on Exertion , PND, Lower Extremity Edema, Orthopnea, Claudication Gastrointestinal: DENIES: Abdominal pain, Black stools, Bloody stools, Constipation, Diarrhea, Nausea, Vomiting, Difficulty Swallowing, Anorexia Genitourinary: DENIES: Abnormal vaginal bleeding, Dysmenorrhea, Dyspareunia, Sexual dysfunction, Urinary frequency, Urinary incontinence, Urgency, Hematuria , Dysuria, Nocturia, Vaginal discharge Musculoskeletal: DENIES: Joint pain, Muscle aches, Stiffness, Joint Swelling, Back pain, Neck pain Integumentary: DENIES: Abnormal pigmentation, Pruritus, Rash, Nail changes, Breast masses, Breast skin changes, Nipple discharge Hematologic/lymphatic: DENIES: Bruising, Lymphadenopathy Immunologic/allergic: DENIES: Eczema, Urticaria Neurologic: DENIES: Abnormal gait, Headache, Localized weakness, Paresthesias, Seizures, Speech Problems, Tremor, Poor Balance Psychiatric: DENIES: Anxiety, Confusion, Mood changes, Depression, Hallucinations, Agitation, Suicidal Ideation, Homicidal Ideation, Delusions Past Family Social History Coded Allergies: Codeine (Verified Allergy, Severe, 06/06/16) sever n/v Demerol (Verified Allergy, Severe, 06/06/16) sever n/v Macrobid (Verified Allergy, Intermediate, rash, 06/26/16) Active Scripts Hospital Bed - Manual 1 Ea Ea #1 Ea .route As Directed Prov:Andrea Granados 09/10/16 Pramoxine-Calamine Topical (Calagesic Topical)1-8 % Lotn1 Applic TOPICAL Q12HR PRN (ITCHING) #1 BOTTLE Prov:Andrea Granados 07/02/16 Hydroxyzine HCl 25 Mg Tab25 Mg PO Q6H PRN (ITCHING/ANXIETY) #10 TAB Prov:Andrea Granados 07/02/16 Cephalexin 250 Mg [id number] Mg PO Q8HR #15 CAP Prov:Andrea Granados 07/02/16 Sulfamethoxazole-Trimethoprim (Bactrim)400-80 Mg Tab1 Tab PO Q12HR #10 TAB Prov:Andrea Granados 07/02/16 Hydrocodone-Acetaminophen (Anselmo)5-325 mg Tab1 Tab PO Q4H PRN (PAIN) #20 TAB Ref 0 Prov:Ludivina Yepez MD 06/29/16 Nitrofurantoin Monohydrate Macrocrystals (Macrobid)100 Mg [id number] Mg PO BIDPC # 14 CAP Prov:Andrea Granados 06/24/16 Ciprofloxacin (Cipro)250 Mg [id number] Mg PO BID #6 TAB Ref 0 Prov:Andrea Granados PA 06/08/16 Famotidine 20 Mg Tab20 Mg PO BID #60 TAB Prov:Andrea Granados PA 06/08/16 Reported Medications Amlodipine 10 Mg Tab10 Mg PO DAILY #30 TAB Ref 0 06/07/16 Sertraline 100 Mg [id number] Mg PO HS #30 TAB Ref 0 06/07/16 Potassium Chloride ER 10 Meq Tab10 Meq PO DAILY #30 TAB Ref 0 06/07/16 Meloxicam 7.5 Mg Tab7.5 Mg PO BID Ref 0 06/07/16 Lisinopril 20 Mg Tab20 Mg PO DAILY #30 TAB Ref 0 06/07/16 Furosemide 20 Mg Tab20 Mg PO DAILY #30 TAB Ref 0 06/07/16 Cholecalciferol (Vitamin D-3)1,000 Unit Tab1,000 Units PO DAILY #30 TAB Ref 0 06/07/16 Aspirin 81 Mg Tabdr81 Mg PO DAILY 06/07/16 Current Medications Medications (Trade) Dose Ordered Sig/Alhaji Route Start Time Stop Time Status Last Admin (NS Flush) 2 ml UNSCH PRN FLUSH 06/23/16 20:00 07/25/16 18:44 (NS Flush) 2 ml BID FLUSH 06/23/16 21:00 09/20/16 09:17 (Lovenox Inj) 40 mg Q24H SQ 06/24/16 09:00 Hold 08/31/16 09:20 (Narcan Inj) 0.4 mg UNSCH PRN IV 06/23/16 20:00 (Norvasc) 10 mg DAILY PO 06/24/16 10:00 09/10/16 09:27 (Ecotrin Ec) 81 mg DAILY PO 06/25/16 09:00 09/10/16 09:27 (Lasix) 20 mg DAILY PO 06/25/16 09:00 Hold 09/10/16 09:28 (Zoloft) 200 mg HS PO 06/24/16 21:00 09/17/16 21:43 (Tylenol) 650 mg Q6H PRN PO 06/26/16 16:15 (Anselmo 5-325 Mg) 1 tab Q4H PRN PO 06/26/16 16:15 09/18/16 21:31 (Caladryl Lotion) 1 applic Q12HR TOPICAL 06/27/16 09:00 09/19/16 10:28 (ZyrTEC) 10 mg HS PO 06/29/16 21:00 09/17/16 21:42 (Lactinex) 1 tab Q12HR PO 07/04/16 21:00 09/17/16 21:42 (Atarax) 50 mg Q6H PRN PO 07/08/16 18:15 09/18/16 12:49 (Pill Splitter) 1 ea UNSCH PRN OTHER 07/09/16 15:45 07/11/16 08:23 (Bactroban 2% Cream) 1 applic Q12HR TOPICAL 07/13/16 13:30 09/19/16 10:31 (Prinivil) 10 mg DAILY PO 08/14/16 09:00 09/10/16 09:27 (Marinol) 5 mg BID@11,16 PO 08/15/16 16:00 09/10/16 16:43 (Carafate Liq) 1 gm ACHS PO 09/08/16 11:00 09/19/16 06:21 (Transderm-Scop 1.5 Mg Patch.72 Hr) 1 patch Q3D T-DERMAL 09/11/16 18:00 09/17/16 17:27 Miscellaneous Information 1 1 Q3D T-DERMAL 09/14/16 18:00 09/14/16 18:00 (D5-1/2 NS + KCl 20 Meq Inj) 1,000 ml @ 84 mls/hr [id number] IV 09/12/16 12:15 09/20/16 10:52 (Protonix Inj) 40 mg Q12H IV PUSH 09/13/16 18:00 09/20/16 06:38 Promethazine HCl 12.5 mg 12.5 mg Q6H PRN PO 09/13/16 18:00 Ondansetron HCl 8 mg/Dextrose 54 ml @ 216 mls/hr Q6H PRN IV 09/15/16 05:36 09/20/16 10:52 Lactated Ringer's 1,000 ml @ 30 mls/hr Q24H PRN IV 09/20/16 08:15 09/23/16 08:14 (NS 500 ml Inj) 500 ml @ 30 mls/hr [id number] PRN IV 09/20/16 08:15 09/23/16 08:14 (SEROquel) 25 mg BID PO 09/20/16 21:00 UNV Family History She denies a Family history Social History Patient was born and raised in [place], she lives in [place] with , unemployed, supported by [facility], highest level of education is eighth grade Physical Exam Vital Signs Vital Signs Date Time Temp Pulse Resp B/P Pulse Ox O2 Delivery O2 Flow Rate FiO2 09/20/16 12:20 97.5 79 20 122/75 95 I/O 09/19/16 09/19/16 09/20/16 08:00 16:00 00:00 Intake Total 60 ml 2411 ml 240 ml Balance 60 ml 2411 ml 240 ml Lab Results WBC is 8.0, Hgb 8.7 HCT 36.4, NA 144,k5, BUN 33, creatinine 0.9, Patient is positive for C. difficile Mental Status Examination Appearance Overweight woman, in [facility], age appearing, good hygiene, calm, cooperative and pleasant Speech: Unremarkable Memory: Unremarkable Thought Process: Logical Thought Content: Unremarkable Hallucination Type: Visual Attention and Concentration: Good Suicidal Ideation: No Previous Suicide Attempts: No Homicidal Ideation: No Previous Homicide Attempts: No Insight: Good Affect: Good Mood: Appropriate Motor Activity: Abnormal gait-specify Assessment & Plan Problem List: (1) Unspecified psychosis Assessment & Plan: Patient reports new onset, about a week ago, of 1-3 times per day episodes of visual hallucinations of people and kids coming inside his room. Patient reports that episodes are non-distressing, ego-syntonic. She denies auditory hallucinations, she denies paranoia, delusions, flight of ideas , delusions of reference. Patient denies depressive symptoms, anxiety, suicidal and homicidal ideation. Patient is fully oriented 3, no attention deficit, no fluctuation of consciousness, no gross cognitive impairment is observed. Current perceptual disturbance seems to be related with underlying medical condition. Patient is most probably having episodes of delirium/acute brain failure/sundowning with perceptual disturbances as neuropsychiatric manifestation. Patient does not meet criteria for psychiatric admission at this moment. We will start Seroquel 20 family was twice a day. Extensive support, motivation psycho education provided. My consider a neurology consult to rule out neurological causes of visual hallucinations. ICD Code: F29 Assessment & Plan Estimated LOS: Carmelo Steinberg MD Sep 20, 2016 16:07
[2016-09-20] MEDS: ACETAMINOPHEN/HYDROcodone 325 MG/5 MG TAB PO PRN (16:09)
--- NOTE | 2016-09-20 17:17 | MB ---
cc: VIRAL SHERIDAN DATE OF CONSULTATION 09/20/16 HISTORY OF PRESENT ILLNESS Ms. Arreola is a 70-year-old white female with a history of gastric bypass and hypertension. She presented with fatigue, weakness, decrease p.o. intake and falls at home. She is wheelchair bound. She has been found to be anemic. She is morbidly obese. She is supposed to undergo EGD and placement of gastrostomy or jejunostomy tube tomorrow. She has not had any chest pain or shortness of breath. PAST MEDICAL HISTORY Positive for hypertension, gastric bypass in 2003, anxiety, arthritis, cholecystectomy, appendectomy and . MEDICATIONS Include: 1. Seroquel. 2. Metoprolol. 3. Insulin sliding scale. 4. Protonix. 5. Phenergan p.r.n. 6. Carafate. 7. Marinol. 8. Prinvil. 9. Lactinex. 10. Zyrtec. 11. Aspirin. 12. Zoloft. 13. Norvasc. ALLERGIES CODEINE, DEMEROL AND MACROBID. SOCIAL HISTORY The patient does not smoke. She quit smoking 20 years ago. She drinks alcohol socially. FAMILY HISTORY Negative for heart disease. REVIEW OF SYSTEMS Otherwise negative. PHYSICAL EXAMINATION VITAL SIGNS: Blood pressure 122/75, pulse 79 and regular. HEENT: Negative. NECK: 2+ carotid upstrokes. No bruits. LUNGS: Clear. HEART: Regular with no murmur, gallop. ABDOMEN: Soft. No bruits. EXTREMITIES: Without edema. 2+ distal pulses. NEUROLOGIC: Grossly intact. The patient is obese and is lying in bed. CARDIOLOGY STUDIES EKG was reviewed and showed normal sinus rhythm, incomplete right bundle branch block. Diffuse STT changes. LABORATORY DATA Hemoglobin 8.7, potassium 5.0, creatinine 0.99, AST 115, ALT 27. DIAGNOSIS 1. Preoperative evaluation. 2. Poor nutrition, gastrostomy/jejunostomy tube planned. 3. Hypertension. 4. Obesity. 5. Status post gastric bypass. 6. Sacral pressure ulcer. 7. Hypothyroidism. 8. Abnormal EKG. DISPOSITION Ms. Arreola has had no angina or heart failure symptoms. She has had normal EKG. We will obtain echocardiogram to evaluate her left ventricle function tomorrow. At this time she has no symptoms that would preclude planned procedures of EGD and gastrostomy or jejunostomy tube placement. I will follow her for cardiology during her hospitalization. MD YASMANY Meeks/OSCAR /4:42 PM /4:54 PM BOLIVAR
[2016-09-20] MEDS: REMOVE OLD SCOPOLAMINE PATCH T-DERMAL SCH (17:30)
[2016-09-20] MEDS: SCOPOLAMINE 1.5 MG PATCH T-DERMAL SCH (17:30)
--- NOTE | 2016-09-20 19:44 | HHI.PR ---
Subjective Subjective Notes Discussed planned procedure with patient; she is agreeable. Objective Vitals/I&O Vital Signs Date Time Temp Pulse Resp B/P Pulse Ox O2 Delivery O2 Flow Rate FiO2 09/20/16 16:35 97.4 84 20 125/59 94 Lungs: Clear Abdomen: Non-distended A/P Assessment and Plan Cardiology has seen pt.; ECHO to be performed in AM; no contraindication for surgery at this time. Repeat labwork just drawn Hb 8.7 Risks discussed with patient; she vocalizes understanding and agrees to proceed. Surgery for 3:30 PM 09/21/16 Abdiel Brown MD Sep 20, 2016 19:44
[2016-09-20 20:03] LABS: AUTOMATED NEUTROPHIL # 6.3 TH/MM3 (1.8-7.7); BASOPHIL % 0.5 % (0.0-2.0); EOSINOPHIL # 0.3 TH/MM3 (0-0.4); LYMPH % 17.1 % (9.0-44.0); LYMPHOCYTE # 1.5 TH/MM3 (1.0-4.8); MEAN CELL VOLUME 78.1 FL (80.0-100.0); MEAN CORPUSCULAR HEMOGLOBIN 24.7 PG (27.0-34.0); MEAN CORPUSCULAR HGB CONC 31.6 % (32.0-36.0); MONO % 5.3 % (0.0-8.0); NEUT % 74.1 % (16.0-70.0); PLATELET COUNT 132 TH/MM3 (150-450); RED BLOOD COUNT 2.68 MIL/MM3 (4.00-5.30); RED CELL DISTRIBUTION WIDTH 23.1 % (11.6-17.2); WHITE BLOOD COUNT 8.5 TH/MM3 (4.0-11.0)
[2016-09-20 20:08] LABS: HEMO FLAGS AUTO DIFF
[2016-09-20 20:15] LABS: BICARBONATE 17.9 MEQ/L (21.0-32.0); POTASSIUM 4.5 MEQ/L (3.5-5.1)
[2016-09-20 20:54] LABS: PLATELET ESTIMATE SMEAR LOW (NORMAL); PLATELET MORPHOLOGY NORMAL (NORMAL); SCAN/DIFF AUTO DIFF CONFIRMED
[2016-09-20] MEDS: CETIRIZINE HCL 10 MG TAB PO SCH (21:00)
[2016-09-20] MEDS: SERTRALINE HCL 100 MG TAB PO SCH (21:00)
[2016-09-20] MEDS: QUEtiapine FUMARATE 25 MG TAB PO SCH (21:00)
--- NOTE | 2016-09-20 23:31 | HHI.GIFU ---
Subjective Remarks Continues to have nausea but otherwise seems to be doing well Objective Vitals I&O Vital Signs Date Time Temp Pulse Resp B/P Pulse Ox O2 Delivery O2 Flow Rate FiO2 09/20/16 20:00 97.0 85 20 116/58 93 09/20/16 16:35 97.4 84 20 125/59 94 09/20/16 12:20 97.5 79 20 122/75 95 09/20/16 12:11 84 09/20/16 07:49 95.6 86 20 113/59 97 09/20/16 04:00 97.7 81 20 117/58 96 09/20/16 00:00 97.5 84 20 109/54 97 I/O 09/19/16 09/19/16 09/19/16 09/20/16 09/20/16 09/20/16 07:00 15:00 23:00 07:00 15:00 23:00 Intake Total 60 ml 2411 ml 240 ml 60 ml 1216 ml 642 ml Balance 60 ml 2411 ml 240 ml 60 ml 1216 ml 642 ml Intake Oral 60 ml 240 ml 60 ml IV Total 2411 ml 1216 ml 642 ml # Voids 1 1 2 2 # Bowel Movements 0 0 0 Laboratory Laboratory Tests Test 09/20/16 19:50 White Blood Count 8.5 Red Blood Count 2.68 Hemoglobin 6.6 Hematocrit 21.0 Mean Corpuscular Volume 78.1 Mean Corpuscular Hemoglobin 24.7 Mean Corpuscular Hemoglobin 31.6 Concent Red Cell Distribution Width 23.1 Platelet Count 132 Mean Platelet Volume 9.3 Neutrophils (%) (Auto) 74.1 Lymphocytes (%) (Auto) 17.1 Monocytes (%) (Auto) 5.3 Eosinophils (%) (Auto) 3.0 Basophils (%) (Auto) 0.5 Neutrophils # (Auto) 6.3 Lymphocytes # (Auto) 1.5 Monocytes # (Auto) 0.5 Eosinophils # (Auto) 0.3 Basophils # (Auto) 0.0 CBC Comment AUTO DIFF Differential Comment AUTO DIFF CONFIRMED Platelet Estimate LOW Platelet Morphology Comment NORMAL Sodium Level 139 Potassium Level 4.5 Chloride Level 114 Carbon Dioxide Level 17.9 Anion Gap 7 Blood Urea Nitrogen 14 Creatinine 0.98 Estimat Glomerular Filtration 56 Rate Random Glucose 86 Calcium Level 7.6 Physical Exam HEENT: PERRLA. Normocephalic; atraumatic; no jaundice. CHEST: CTA, diminished CARDIAC: RRR ABDOMEN: Obese, soft, nondistended, mild RUQ/LUQ/epigastric tenderness on palpation, no hepatosplenomegaly; bowel sounds x 4 quadrants. EXTREMITIES: Generalized edema. SKIN: Generalized pallor SOILS TECHNICIAN: A & O x 3. Assessment and Plan Plan ASSESSMENT: - Persistent N/V, ?gastroparesis. Of note, patient is s/p gastric bypass 5 years ago. She was evaluated with EGD/Colonoscopy (09/01/16)---> esophageal ulcer and anatomy C/W gastric bypass, colonoscopy showed diverticulosis, no sign of colitis. Pathology acute esophagitis, no fungal organisms are present. Abdomen/Pelvis CT (09/08/16)-----> 1. No acute findings within the abdomen and pelvis. Colonic diverticulosis without diverticulitis. Previous gastric bypass surgery. 2. Small left-sided pleural effusion with mild basilar atelectasis. 3. Atrophic left kidney. Still having persistent nausea- no vomiting. She continues to refuse all po meds except Atarax and Lortab. She still is not eating any po diet. States that she cannot. Staff Electronic Warfare Officer is following and has recommend if PPN needed, CLINIMIX E 4.25/5 @ 70 mls/hr with 20% lipids @ 10 mls/hr. IR unable to place G/J tube secondary to hx of gastric bypass. Staff Electronic Warfare Officer recommends Vital 1.5 @ 45mls/hr goal for tube feeding. GS evaluated patient for J tube placement (IR unable to place secondary to hx of gastric bypass). Per GS note--They would like to consider obtaining upper GI to evaluate gastric bypass and pouch. They plan to do likely a gastrostomy tube in the remnant stomach versus possible jejunostomy tube on Wednesday. - Decreased appetite, refusing Marinol. States she cannot eat because of nausea. - Elevated LFTs. Stable. - Esophageal ulcer. Protonix. - Anemia, Hemoccult positive stool. S/P 2 units PRBC, HH has remained stable since. EGD/Colonoscopy as above. - CDiff colitis, s/p oral vanco, dificid. Colonoscopy without any signs of colitis. States diarrhea improved. Repeat CDiff stool ordered on 09/10 but nothing has resulted. Reports 2 BMs PLAN: -Case discussed with Dr. Pimentel the plan is to pursue J-tube placement for feeding - Cont. Scopolamine - Cont. Protonix - Cont. Zofran prn - Pt refusing all po meds except Lortab, Zoloft, Atarax - Staff Electronic Warfare Officer recommends Vital 1.5 @ 45 mls/hr goal - Further recommendations to follow based on results of above Jc Cheatham MD Sep 20, 2016 23:31
[2016-09-21] VITALS (7 sets, daily range): BP systolic 114–139; BP diastolic 56–77; PULSE 76–84; RESP 16–20; TEMP 95.8–97.7; O2SAT 95–100
[2016-09-21] MEDS: PANTOPRAZOLE SODIUM 40 MG VIAL IV PUSH SCH ×2 (05:35→18:00)
[2016-09-21] MEDS: SUCRALFATE 1 GM/10 ML CUP PO SCH ×5 (05:35→21:00)
[2016-09-21] MEDS: LISINOPRIL 10 MG TAB PO SCH ×2 (08:09→08:14)
[2016-09-21] MEDS: ASPIRIN EC 81 MG TABEC PO SCH ×2 (08:09→08:14)
[2016-09-21] MEDS: LACTOBACILLUS ACIDOPHILUS TAB PO SCH ×3 (08:09→21:00)
[2016-09-21] MEDS: QUEtiapine FUMARATE 25 MG TAB PO SCH ×2 (08:09→21:00)
[2016-09-21] MEDS: CALAMINE/PRAMOXINE LOTION 180 ML BTL TOPICAL SCH (08:10)
[2016-09-21] MEDS: D5-1/2 NS + KCL 20 MEQ INJ 1,000 ML IV SCH ×2 (08:10→22:40)
[2016-09-21] MEDS: SODIUM CHLORIDE 0.9% FLUSH 5 ML FLUSH FLUSH SCH ×2 (08:10→21:00)
[2016-09-21] MEDS: MUPIROCIN 2% CREAM 15 GM TOPICAL SCH (08:10)
[2016-09-21] MEDS: DRONABINOL 5 MG CAP PO SCH ×2 (08:13→14:22)
[2016-09-21 10:32] LABS: AUTOMATED NEUTROPHIL # 6.2 TH/MM3 (1.8-7.7); BASOPHIL % 0.2 % (0.0-2.0); EOSINOPHIL # 0.3 TH/MM3 (0-0.4); EOSINOPHIL % 3.9 % (0.0-4.0); HEMATOCRIT 27.8 % (35.0-46.0); LYMPH % 19.5 % (9.0-44.0); LYMPHOCYTE # 1.7 TH/MM3 (1.0-4.8); MEAN CORPUSCULAR HEMOGLOBIN 25.4 PG (27.0-34.0); MEAN CORPUSCULAR HGB CONC 33.1 % (32.0-36.0); NEUT % 71.4 % (16.0-70.0); PLATELET COUNT 239 TH/MM3 (150-450); RED BLOOD COUNT 3.62 MIL/MM3 (4.00-5.30); RED CELL DISTRIBUTION WIDTH 20.9 % (11.6-17.2); WHITE BLOOD COUNT 8.7 TH/MM3 (4.0-11.0)
[2016-09-21 10:35] LABS: HEMO FLAGS AUTO DIFF
[2016-09-21 10:51] LABS: BICARBONATE 23.2 MEQ/L (21.0-32.0); POTASSIUM 4.3 MEQ/L (3.5-5.1)
--- NOTE | 2016-09-21 10:59 | HHI.PR ---
Subjective Remarks Follow-up for generalized weakness, nausea vomiting. Patient is currently doing well. No fever or chills. No nausea or vomiting. She is not tolerating food by mouth. Scheduled for J-tube placement today. Objective Vitals Vital Signs Date Time Temp Pulse Resp B/P Pulse Ox O2 Delivery O2 Flow Rate FiO2 09/21/16 08:29 96.2 82 20 131/73 98 09/21/16 04:00 97.7 84 20 128/59 97 09/21/16 02:45 97.4 82 18 134/63 95 09/21/16 02:26 96.3 81 16 139/77 96 09/21/16 00:00 97.3 76 20 114/56 98 09/20/16 20:00 97.0 85 20 116/58 93 09/20/16 19:00 82 09/20/16 16:35 97.4 84 20 125/59 94 09/20/16 12:20 97.5 79 20 122/75 95 09/20/16 12:11 84 I/O 09/20/16 09/20/16 09/20/16 09/21/16 09/21/16 09/21/16 07:00 15:00 23:00 07:00 15:00 23:00 Intake Total 60 ml 1216 ml 762 ml Balance 60 ml 1216 ml 762 ml Intake Oral 60 ml 120 ml IV Total 1216 ml 642 ml # Voids 2 2 1 2 # Bowel Movements 0 0 0 Result Diagram: 09/21/16 0957 09/20/16 1950 Imaging Last Impressions Chest X-Ray 09/18/16 0000 Signed Impressions: Service Date/Time: Sunday, September 18, 2016 11:51 - CONCLUSION: Tiny bilateral pleural effusions. Mayr Florez MD Abdomen/Pelvis CT 09/08/16 0000 Signed Impressions: Service Date/Time: Thursday, September 08, 2016 21:55 - CONCLUSION: 1. No acute findings within the abdomen and pelvis. Colonic diverticulosis without diverticulitis. Previous gastric bypass surgery. 2. Small left-sided pleural effusion with mild basilar atelectasis. 3. Atrophic left kidney. Dillon Romero MD Hip MRI 07/05/16 0000 Signed Impressions: Service Date/Time: Tuesday, July 05, 2016 10:51 - CONCLUSION: 1. There is osteopenia primary degenerative changes at both hips, left greater than right. 2. Prominent osteophyte along the inferior articulating surface of the proximal left femur. 3. Nonspecific edema in the gluteus and hamstring muscles. 4. No acute bony fracture. Javier Fishman MD Lower Extremity Ultrasound 06/29/16 0000 Signed Impressions: Service Date/Time: Wednesday, June 29, 2016 10:07 - CONCLUSION: Negative for deep venous thrombosis. Alfredo Sanders MD FACR Cervical Spine MRI 06/27/16 0000 Signed Impressions: Service Date/Time: Monday, June 27, 2016 11:09 - CONCLUSION: Mild degenerative changes otherwise unremarkable cervical spine. Anselmo Leavitt MD Thoracic Spine MRI 06/25/16 0000 Signed Impressions: Service Date/Time: June 19:36 - CONCLUSION: 1. No fracture or subluxation of the thoracic spine. 2. Mild and fairly diffuse degenerative changes as above. 3. Mild left foraminal encroachment at T8/T9 and T9/T10. 4. No significant spinal stenosis at any level. 5. Incidentally seen tiny right and small left pleural effusions, nonspecific. Jeevan Arreola MD Lumbar Spine MRI 06/25/16 0000 Signed Impressions: Service Date/Time: June 19:36 - CONCLUSION: 1. Multilevel lumbar degenerative changes as detailed above. 2. Mild spinal stenosis at L3/L4 without evidence of transiting nerve root impingement. 3. Mild to moderate spinal stenosis at L4/L5 and possibly with mild mass effect/impingement on the transiting left L5 nerve root within the subarticular recess. 4. Mild bilateral foraminal encroachment L3/L4 and L4/L5. Mild to moderate bilateral foraminal encroachment at L5/S1. 5. No fracture or subluxation of the lumbar spine. Jeevan Arreola MD Hip and Pelvis X-Ray 06/25/16 0000 Signed Impressions: Service Date/Time: June 20:27 - CONCLUSION: Moderate to severe left hip' right is with considerable osteophytosis and an apparent large inferior joint body. No fracture or subluxation. Jeevan Arreola MD Objective Remarks GENERAL: Alert, NAD. SKIN: Warm and dry. HEAD: Normocephalic. EYES: No scleral icterus. No injection or drainage. NECK: Supple, trachea midline. No JVD or lymphadenopathy. CARDIOVASCULAR: Regular rate and rhythm without murmurs, gallops, or rubs. RESPIRATORY: Breath sounds equal bilaterally. No accessory muscle use. GASTROINTESTINAL: Abdomen soft, non-tender except mid right abdominal tenderness on palpation, nondistended. MUSCULOSKELETAL: No cyanosis, or edema. BACK: Nontender without obvious deformity. No CVA tenderness. Procedures 09/01/2016 Colonoscopy IMPRESSIONS: 1. Diverticolosis in left colon 2. The colonic mucosa appeared normal 3. The colon mucosa was otherwise normal 4. Retroflexed views revealed no abnormalities 5. Revealed no abnormalities of the rectum A/P Problem List: (1) Total self-care deficit ICD Code: R41.89 Status: Acute (2) Sacral pressure ulcer ICD Code: L89.159 Status: Chronic (3) Subclinical hypothyroidism ICD Code: E03.9 Status: Acute (4) Radiculopathy of lumbar region ICD Code: M54.16 Status: Acute Assessment and Plan Mrs. Arreola is a 70-year-old female with a known history of hypertension, obesity , arthritis, status post gastric bypass who presented to the ED on 06/23/16 with complaints of generalized weakness for two weeks. Apparently patient had been discharged on 06/08/16 with home health care and sustained a fall at home with progressive weakness. Supposedly she is wheelchair bound at home and unable to transfer independently. Poor appetite secondary to nausea: -GI and dietitian is following. on Zofran IV PRN. Continue IV Reglan. On scopolamine patch Continue Marinol for appetite stimulant. Full liquids per GI. -GI recommended GJ. IR unable to place one since patient had gastric bypass in the past. -Surgery consulted - possible J tube placement by Surgery on 09/21/2016. -Per surgery they recommended an upper GI to evaluate gastric bypass and pouch. They stated they will likely do a gastrotomy tube in the remnant of the stomach versus possible jejunostomy tube on Thursday 09/21. -GI will do an EGD. - Cardiology cleared for surgery. Epigastric pain likely secondary to ulcer -Seem to improve. - Continue Protonix. Sacral pressure ulcer, resolved - Encourage repositioning patient every 2 hours. Specialty mattress continued. C. difficile diarrhea -Diarrhea is currently improved. Last BM 09/05. Last Tox PCR positive on 08/19. Has previously been treated with Flagyl, oral vancomycin. ID previously consulted on 08/20 with recommendations to discontinue Vanco and begin Dificid, completed course of Dificid. Generalized weakness - Continue physical therapy. Will need nursing facility at discharge, case management following, but patient declined. she stated she wants to go home. Lumbar radiculopathy - Neurosurgery signed off, no surgical intervention recommended at this time. Control pain Amelia PRN per pain scale. Anemia, GI bleed - Stool Hemoccult is positive on 08/30. Status post EGD, which showed esophageal ulcer. S/p transfusion 2 units on 09/02. Hb stable. Other chronic medical history includes osteoarthritis - CKD stage III are stable at this time. Report of possible hallucination 09/19 -Has remained asymptomatic since that time -consult Psychiatrist. DVT prophylaxis: SCDs/TEDs. Problem Qualifiers (1) Sacral pressure ulcer: Qualified Code: L89.151 - Decubitus ulcer of sacral region, stage 1 Salvador Alcocer DO September 21, 2016 10:59
--- NOTE | 2016-09-21 11:14 | HHI.GIFU ---
Subjective Remarks Resting in bed. Continues to have nausea, no improvement. Refusing most po meds including carafate and marinol. Lower left sided abdominal pain. One large loose stool today. (Chastity Sutherland) Objective Vitals I&O Vital Signs Date Time Temp Pulse Resp B/P Pulse Ox O2 Delivery O2 Flow Rate FiO2 09/21/16 08:29 96.2 82 20 131/73 98 09/21/16 04:00 97.7 84 20 128/59 97 09/21/16 02:45 97.4 82 18 134/63 95 09/21/16 02:26 96.3 81 16 139/77 96 09/21/16 00:00 97.3 76 20 114/56 98 09/20/16 20:00 97.0 85 20 116/58 93 09/20/16 19:00 82 09/20/16 16:35 97.4 84 20 125/59 94 09/20/16 12:20 97.5 79 20 122/75 95 09/20/16 12:11 84 I/O 09/20/16 09/20/16 09/20/16 09/21/16 09/21/16 09/21/16 07:00 15:00 23:00 07:00 15:00 23:00 Intake Total 60 ml 1216 ml 762 ml Balance 60 ml 1216 ml 762 ml Intake Oral 60 ml 120 ml IV Total 1216 ml 642 ml # Voids 2 2 1 2 # Bowel Movements 0 0 0 Laboratory Laboratory Tests Test 09/20/16 09/21/16 09/21/16 19:50 00:35 09:57 White Blood Count 8.5 8.7 Red Blood Count 2.68 3.62 Hemoglobin 6.6 9.2 Hematocrit 21.0 27.8 Mean Corpuscular Volume 78.1 77.0 Mean Corpuscular Hemoglobin 24.7 25.4 Mean Corpuscular Hemoglobin 31.6 33.1 Concent Red Cell Distribution Width 23.1 20.9 Platelet Count 132 239 Mean Platelet Volume 9.3 10.1 Neutrophils (%) (Auto) 74.1 71.4 Lymphocytes (%) (Auto) 17.1 19.5 Monocytes (%) (Auto) 5.3 5.0 Eosinophils (%) (Auto) 3.0 3.9 Basophils (%) (Auto) 0.5 0.2 Neutrophils # (Auto) 6.3 6.2 Lymphocytes # (Auto) 1.5 1.7 Monocytes # (Auto) 0.5 0.4 Eosinophils # (Auto) 0.3 0.3 Basophils # (Auto) 0.0 0.0 CBC Comment AUTO DIFF AUTO DIFF Differential Comment AUTO DIFF CONFIRMED Platelet Estimate LOW Platelet Morphology Comment NORMAL Sodium Level 139 142 Potassium Level 4.5 4.3 Chloride Level 114 112 Carbon Dioxide Level 17.9 23.2 Anion Gap 7 7 Blood Urea Nitrogen 14 13 Creatinine 0.98 0.93 Estimat Glomerular Filtration 56 60 Rate Random Glucose 86 84 Calcium Level 7.6 8.2 Blood Type A POSITIVE Antibody Screen NEGATIVE Crossmatch Leukocyte-Reduced Red Blood Cells Blood Bank Comment Imaging Last Impressions Chest X-Ray 09/18/16 0000 Signed Impressions: Service Date/Time: Sunday, September 18, 2016 11:51 - CONCLUSION: Tiny bilateral pleural effusions. K. José Miguel Florez MD Abdomen/Pelvis CT 09/08/16 0000 Signed Impressions: Service Date/Time: Thursday, September 08, 2016 21:55 - CONCLUSION: 1. No acute findings within the abdomen and pelvis. Colonic diverticulosis without diverticulitis. Previous gastric bypass surgery. 2. Small left-sided pleural effusion with mild basilar atelectasis. 3. Atrophic left kidney. Dillon Romero MD Hip MRI 07/05/16 0000 Signed Impressions: Service Date/Time: Tuesday, July 05, 2016 10:51 - CONCLUSION: 1. There is osteopenia primary degenerative changes at both hips, left greater than right. 2. Prominent osteophyte along the inferior articulating surface of the proximal left femur. 3. Nonspecific edema in the gluteus and hamstring muscles. 4. No acute bony fracture. Javier Fishman MD Lower Extremity Ultrasound 06/29/16 0000 Signed Impressions: Service Date/Time: Wednesday, June 29, 2016 10:07 - CONCLUSION: Negative for deep venous thrombosis. Alfredo Sanders MD FACR Cervical Spine MRI 06/27/16 0000 Signed Impressions: Service Date/Time: Monday, June 27, 2016 11:09 - CONCLUSION: Mild degenerative changes otherwise unremarkable cervical spine. Anselmo Leavitt MD Thoracic Spine MRI 06/25/16 0000 Signed Impressions: Service Date/Time: June 19:36 - CONCLUSION: 1. No fracture or subluxation of the thoracic spine. 2. Mild and fairly diffuse degenerative changes as above. 3. Mild left foraminal encroachment at T8/T9 and T9/T10. 4. No significant spinal stenosis at any level. 5. Incidentally seen tiny right and small left pleural effusions, nonspecific. Jeevan Arreola MD Lumbar Spine MRI 06/25/16 0000 Signed Impressions: Service Date/Time: June 19:36 - CONCLUSION: 1. Multilevel lumbar degenerative changes as detailed above. 2. Mild spinal stenosis at L3/L4 without evidence of transiting nerve root impingement. 3. Mild to moderate spinal stenosis at L4/L5 and possibly with mild mass effect/impingement on the transiting left L5 nerve root within the subarticular recess. 4. Mild bilateral foraminal encroachment L3/L4 and L4/L5. Mild to moderate bilateral foraminal encroachment at L5/S1. 5. No fracture or subluxation of the lumbar spine. Jeevan Arreola MD Hip and Pelvis X-Ray 06/25/16 0000 Signed Impressions: Service Date/Time: June 20:27 - CONCLUSION: Moderate to severe left hip' right is with considerable osteophytosis and an apparent large inferior joint body. No fracture or subluxation. Jeevan Arreola MD Physical Exam HEENT: PERRLA. Normocephalic; atraumatic; no jaundice. CHEST: CTA, diminished CARDIAC: RRR ABDOMEN: Obese, soft, nondistended, mild LLQ tenderness on palpation, no hepatosplenomegaly; bowel sounds x 4 quadrants. EXTREMITIES: Generalized edema. SKIN: Generalized pallor COLLECTOR OF AQUARIUM SPECIMENS: Lethargic, oriented x 3. (Chastity Sutherland) Assessment and Plan Plan ASSESSMENT: - Persistent N/V, ?gastroparesis. Of note, patient is s/p gastric bypass 5 years ago. She was evaluated with EGD/Colonoscopy (09/01/16)---> esophageal ulcer and anatomy C/W gastric bypass, colonoscopy showed diverticulosis, no sign of colitis. Pathology acute esophagitis, no fungal organisms are present. Abdomen/Pelvis CT (09/08/16)-----> 1. No acute findings within the abdomen and pelvis. Colonic diverticulosis without diverticulitis. Previous gastric bypass surgery. 2. Small left-sided pleural effusion with mild basilar atelectasis. 3. Atrophic left kidney. Still having persistent nausea- no vomiting. She continues to refuse all po meds except Atarax and Lortab. She still is not eating any po diet. States that she cannot. [employer] is following and has recommend if PPN needed, CLINIMIX E 4.25/5 @ 70 mls/hr with 20% lipids @ 10 mls/hr. IR unable to place G/J tube secondary to hx of gastric bypass. [employer] recommends Vital 1.5 @ 45mls/hr goal for tube feeding. Plan is for surgically placed J tube vs gastrostomy tube in remnant stomach today at 3:30 per GS note. NPO. Scopalamine, Protonix IV- refusing marinol, carafate, Not taking phenergan. Zofran. - Decreased appetite, refusing Marinol. States she cannot eat because of nausea. - Elevated LFTs. Stable. - Esophageal ulcer. Protonix. - Anemia, Hemoccult positive stool. S/P 3 units PRBC, HH has remained stable since. EGD/Colonoscopy as above. She did have a drop in Hgb yesterday from 8.7 to 6.6/21.0. Today this is 9.2/27.8 after one unit- ? false drop in h/h- today's hh would be more consistent with her receiving one unit at her baseline of 8? - CDiff colitis, s/p oral vanco, dificid. Colonoscopy without any signs of colitis. States diarrhea improved. PLAN: - J tube placement by GS today at 3:30pm. - NPO for above - Cont. Scopolamine - Cont. Protonix - Cont. Zofran prn - Pt still refusing carafate and marinol - [employer] recommends Vital 1.5 @ 45 mls/hr goal - Further recommendations to follow based on results of above - Pt seen and examined by Dr. Cervantes and myself and this note is written on his behalf (Chastity Sutherland) Physician Comments Seen and examined , no active bleeding. S/P egd/colonoscopy. TF when able. ( Bradley Cervantes MD) Chastity Sutherland September 21, 2016 11:14 Bradley Cervantes MD September 23, 2016 14:35
[2016-09-21 11:33] LABS: KERATOCYTES OCC (NORMAL); PLATELET ESTIMATE SMEAR NORMAL (NORMAL); PLATELET MORPHOLOGY ENLARGED (NORMAL); SCAN/DIFF AUTO DIFF CONFIRMED
[2016-09-21] MEDS ORDERED: PROPOFOL 200 MG/20 ML AMP IV ONE (12:00)
[2016-09-21] MEDS ORDERED: NEOSTIGMINE 3 MG/3 ML SYR IV ONE (12:00)
[2016-09-21] MEDS ORDERED: PHENYLEPH/NS 1000 MCG/10 ML SYR IV ONE (12:00)
[2016-09-21] MEDS ORDERED: ONDANSETRON HCL 4 MG/2 ML VIAL IV PUSH ONE (12:00)
[2016-09-21] MEDS ORDERED: LACTATED RINGER'S 1000 ML INJ 1,000 ML IV ONE (12:00)
[2016-09-21] MEDS ORDERED: ceFAZolin 2 GM PREMIX 50 ML ONE (16:44)
[2016-09-21] MEDS ORDERED: ceFAZolin INJ 1,000 MG VIAL IV ONE (16:49)
[2016-09-21] MEDS ORDERED: BUPIVACAINE/EPINEPHRINE 0.25% PF 30 ML VIAL INFIL ONE (16:51)
--- NOTE | 2016-09-21 17:34 | PD.CARD.PN ---
Subjective Subjective Remarks No CP or SOB Objective Medications Current Medications Medications (Trade) Dose Ordered Sig/Alhaji Route Start Time Stop Time Status Last Admin (NS Flush) 2 ml UNSCH PRN FLUSH 06/23/16 20:00 07/25/16 18:44 (NS Flush) 2 ml BID FLUSH 06/23/16 21:00 09/20/16 09:17 (Lovenox Inj) 40 mg Q24H SQ 06/24/16 09:00 Hold 08/31/16 09:20 (Narcan Inj) 0.4 mg UNSCH PRN IV 06/23/16 20:00 (Norvasc) 10 mg DAILY PO 06/24/16 10:00 09/10/16 09:27 (Ecotrin Ec) 81 mg DAILY PO 06/25/16 09:00 09/10/16 09:27 (Lasix) 20 mg DAILY PO 06/25/16 09:00 Hold 09/10/16 09:28 (Zoloft) 200 mg HS PO 06/24/16 21:00 09/17/16 21:43 (Tylenol) 650 mg Q6H PRN PO 06/26/16 16:15 ([place] 5-325 Mg) 1 tab Q4H PRN PO 06/26/16 16:15 09/20/16 16:09 (Caladryl Lotion) 1 applic Q12HR TOPICAL 06/27/16 09:00 09/21/16 08:10 (ZyrTEC) 10 mg HS PO 06/29/16 21:00 09/17/16 21:42 (Lactinex) 1 tab Q12HR PO 07/04/16 21:00 09/17/16 21:42 (Atarax) 50 mg Q6H PRN PO 07/08/16 18:15 09/18/16 12:49 (Pill Splitter) 1 ea UNSCH PRN OTHER 07/09/16 15:45 07/11/16 08:23 (Bactroban 2% Cream) 1 applic Q12HR TOPICAL 07/13/16 13:30 09/21/16 08:10 (Prinivil) 10 mg DAILY PO 08/14/16 09:00 09/10/16 09:27 (Marinol) 5 mg BID@11,16 PO 08/15/16 16:00 09/10/16 16:43 (Carafate Liq) 1 gm ACHS PO 09/08/16 11:00 09/19/16 06:21 (Transderm-Scop 1.5 Mg Patch.72 Hr) 1 patch Q3D T-DERMAL 09/11/16 18:00 09/20/16 17:30 Miscellaneous Information 1 1 Q3D T-DERMAL 09/14/16 18:00 09/20/16 17:30 (D5-1/2 NS + KCl 20 Meq Inj) 1,000 ml @ 84 mls/hr [id number] IV 09/12/16 12:15 09/20/16 21:20 (Protonix Inj) 40 mg Q12H IV PUSH 09/13/16 18:00 09/21/16 05:35 Promethazine HCl 12.5 mg 12.5 mg Q6H PRN PO 09/13/16 18:00 Ondansetron HCl 8 mg/Dextrose 54 ml @ 216 mls/hr Q6H PRN IV 09/15/16 05:36 09/20/16 17:29 Lactated Ringer's 1,000 ml @ 30 mls/hr Q24H PRN IV 09/20/16 08:15 09/23/16 08:14 (NS 500 ml Inj) 500 ml @ 30 mls/hr [id number] PRN IV 09/20/16 08:15 09/23/16 08:14 (SEROquel) 25 mg BID PO 09/20/16 21:00 09/21/16 08:09 Vital Signs / I&O Vital Signs Date Time Temp Pulse Resp B/P Pulse Ox O2 Delivery O2 Flow Rate FiO2 09/21/16 11:54 95.8 80 20 131/67 100 09/21/16 08:29 96.2 82 20 131/73 98 09/21/16 04:00 97.7 84 20 128/59 97 09/21/16 02:45 97.4 82 18 134/63 95 09/21/16 02:26 96.3 81 16 139/77 96 09/21/16 00:00 97.3 76 20 114/56 98 09/20/16 20:00 97.0 85 20 116/58 93 09/20/16 19:00 82 I/O 4/3009/20/16 09/20/16 09/21/16 09/21/16 09/21/16 07:00 15:00 23:00 07:00 15:00 23:00 Intake Total 60 ml 1216 ml 762 ml Balance 60 ml 1216 ml 762 ml Intake Oral 60 ml 120 ml IV Total 1216 ml 642 ml # Voids 2 2 1 2 # Bowel Movements 0 0 0 Physical Exam GENERAL: In NAD SKIN: Warm and dry. HEAD: Normocephalic. EYES: No scleral icterus. No injection or drainage. NECK: Supple, trachea midline. No JVD or lymphadenopathy. CARDIOVASCULAR: Regular rate and rhythm without murmurs, gallops, or rubs. RESPIRATORY: Breath sounds equal bilaterally. No accessory muscle use. GASTROINTESTINAL: Abdomen soft, non-tender, nondistended. MUSCULOSKELETAL: No cyanosis, mild edema. . Laboratory Laboratory Tests Test 09/20/16 09/21/16 09/21/16 19:50 00:35 09:57 White Blood Count 8.5 TH/MM3 8.7 TH/MM3 Red Blood Count 2.68 MIL/MM3 3.62 MIL/MM3 Hemoglobin 6.6 GM/DL 9.2 GM/DL Hematocrit 21.0 % 27.8 % Mean Corpuscular Volume 78.1 FL 77.0 FL Mean Corpuscular Hemoglobin 24.7 PG 25.4 PG Mean Corpuscular Hemoglobin 31.6 % 33.1 % Concent Red Cell Distribution Width 23.1 % 20.9 % Platelet Count 132 TH/MM3 239 TH/MM3 Mean Platelet Volume 9.3 FL 10.1 FL Neutrophils (%) (Auto) 74.1 % 71.4 % Lymphocytes (%) (Auto) 17.1 % 19.5 % Monocytes (%) (Auto) 5.3 % 5.0 % Eosinophils (%) (Auto) 3.0 % 3.9 % Basophils (%) (Auto) 0.5 % 0.2 % Neutrophils # (Auto) 6.3 TH/MM3 6.2 TH/MM3 Lymphocytes # (Auto) 1.5 TH/MM3 1.7 TH/MM3 Monocytes # (Auto) 0.5 TH/MM3 0.4 TH/MM3 Eosinophils # (Auto) 0.3 TH/MM3 0.3 TH/MM3 Basophils # (Auto) 0.0 TH/MM3 0.0 TH/MM3 CBC Comment AUTO DIFF AUTO DIFF Differential Comment AUTO DIFF AUTO DIFF CONFIRMED CONFIRMED Platelet Estimate LOW NORMAL Platelet Morphology Comment NORMAL ENLARGED Sodium Level 139 MEQ/L 142 MEQ/L Potassium Level 4.5 MEQ/L 4.3 MEQ/L Chloride Level 114 MEQ/L 112 MEQ/L Carbon Dioxide Level 17.9 MEQ/L 23.2 MEQ/L Anion Gap 7 MEQ/L 7 MEQ/L Blood Urea Nitrogen 14 MG/DL 13 MG/DL Creatinine 0.98 MG/DL 0.93 MG/DL Estimat Glomerular Filtration 56 ML/MIN 60 ML/MIN Rate Random Glucose 86 MG/DL 84 MG/DL Calcium Level 7.6 MG/DL 8.2 MG/DL Blood Type A POSITIVE Antibody Screen NEGATIVE Crossmatch Leukocyte-Reduced Red Blood Cells Blood Bank Comment Keratocytes OCC Imaging Last Impressions Chest X-Ray 09/18/16 0000 Signed Impressions: Service Date/Time: Sunday, September 18, 2016 11:51 - CONCLUSION: Tiny bilateral pleural effusions. K. José Miguel Florez MD Abdomen/Pelvis CT 09/08/16 0000 Signed Impressions: Service Date/Time: Thursday, September 08, 2016 21:55 - CONCLUSION: 1. No acute findings within the abdomen and pelvis. Colonic diverticulosis without diverticulitis. Previous gastric bypass surgery. 2. Small left-sided pleural effusion with mild basilar atelectasis. 3. Atrophic left kidney. Dillon Romero MD Hip MRI 07/05/16 0000 Signed Impressions: Service Date/Time: Tuesday, July 05, 2016 10:51 - CONCLUSION: 1. There is osteopenia primary degenerative changes at both hips, left greater than right. 2. Prominent osteophyte along the inferior articulating surface of the proximal left femur. 3. Nonspecific edema in the gluteus and hamstring muscles. 4. No acute bony fracture. Javier Fishman MD Lower Extremity Ultrasound 06/29/16 0000 Signed Impressions: Service Date/Time: Wednesday, June 29, 2016 10:07 - CONCLUSION: Negative for deep venous thrombosis. Alfredo Sanders MD FACR Cervical Spine MRI 06/27/16 0000 Signed Impressions: Service Date/Time: Monday, June 27, 2016 11:09 - CONCLUSION: Mild degenerative changes otherwise unremarkable cervical spine. Anselmo Leavitt MD Thoracic Spine MRI 06/25/16 0000 Signed Impressions: Service Date/Time: June 19:36 - CONCLUSION: 1. No fracture or subluxation of the thoracic spine. 2. Mild and fairly diffuse degenerative changes as above. 3. Mild left foraminal encroachment at T8/T9 and T9/T10. 4. No significant spinal stenosis at any level. 5. Incidentally seen tiny right and small left pleural effusions, nonspecific. Jeevan Arreola MD Lumbar Spine MRI 06/25/16 Signed Impressions: Service Date/Time: June 19:36 - CONCLUSION: 1. Multilevel lumbar degenerative changes as detailed above. 2. Mild spinal stenosis at L3/L4 without evidence of transiting nerve root impingement. 3. Mild to moderate spinal stenosis at L4/L5 and possibly with mild mass effect/impingement on the transiting left L5 nerve root within the subarticular recess. 4. Mild bilateral foraminal encroachment L3/L4 and L4/L5. Mild to moderate bilateral foraminal encroachment at L5/S1. 5. No fracture or subluxation of the lumbar spine. Jeevan Arreola MD Hip and Pelvis X-Ray 06/25/16 Signed Impressions: Service Date/Time: June 20:27 - CONCLUSION: Moderate to severe left hip' right is with considerable osteophytosis and an apparent large inferior joint body. No fracture or subluxation. Jeevan Arreola MD Assessment and Plan Problem List: (1) Failure to thrive in adult (2) Generalized weakness (3) CKD (chronic kidney disease), stage III (4) Morbid obesity (5) HTN (hypertension) (6) Sacral pressure ulcer Assessment and Plan No new cardiac issues. Proceed with J tube placement as planned today. Increase nutrition. Will check echo. Increase activity. PT/OT. Problem Qualifiers (1) Sacral pressure ulcer: Qualified Code: L89.151 - Decubitus ulcer of sacral region, stage 1 Shahzad Brito MD September 21, 2016 17:34
[2016-09-21] MEDS ORDERED: DO NOT ADM ANY ANTICOAGULANT DRUGS PRN (18:34)
[2016-09-21] MEDS ORDERED: fentaNYL CITRATE 250 MCG/5 ML AMP ONE (18:52)
[2016-09-21] MEDS: SERTRALINE HCL 100 MG TAB PO SCH (21:00)
[2016-09-21] MEDS: CETIRIZINE HCL 10 MG TAB PO SCH (21:00)
--- NOTE | 2016-09-21 21:03 | EC ---
Study Study Date:09/21/2016 STUDY CONCLUSIONS SUMMARY - Left ventricle: The cavity size was normal. Wall thickness was normal. Systolic function was normal. The estimated ejection fraction was 55%. Wall motion was normal; there were no regional wall motion abnormalities. - Tricuspid valve: Mild regurgitation. - Pulmonary arteries: Systolic pressure was mildly to moderately increased, estimated to be 52mm Hg. If LV function is below 40, please consider prescribing an ACEI or ARB or document rationale for non-use. PROCEDURE DATA STUDY STATUS: Elective. Procedure: Transthoracic echocardiography. Image quality was good. Scanning was performed from the parasternal, apical, and subcostal acoustic windows. Study completion: The patient tolerated the procedure well. Transthoracic echocardiography. M-mode, complete 2D, complete spectral Doppler, and color Doppler. Height: Height: 65in. Weight: Weight: 287.4lb. Body mass index: BMI: 47.9kg/m^2. Body surface area: BSA: 2.31m^2. Patient status: Inpatient. CARDIAC ANATOMY LEFT VENTRICLE: The cavity size was normal. Wall thickness was normal. Systolic function was normal. The estimated ejection fraction was 55%. Wall motion was normal; there were no regional wall motion abnormalities. AORTIC VALVE: Trileaflet; normal thickness leaflets. Doppler: Transvalvular velocity was within the normal range. There was no stenosis. No regurgitation. Valve area: 2.77cm^2(VTI). Indexed valve area: 1.2cm^2/m^2 (VTI). Valve area: 2.52cm^2 (Vmax). Indexed valve area: 1.09cm^2/m^2 (Vmax). Mean gradient: 4mm Hg (S). AORTA: Aortic root: The aortic root was normal in size. MITRAL VALVE: Structurally normal valve. Doppler: Transvalvular velocity was within the normal range. There was no evidence for stenosis. Trace regurgitation. LEFT ATRIUM: The atrium was normal in size. RIGHT VENTRICLE: The cavity size was normal. Wall thickness was normal. PULMONIC VALVE: Doppler: Transvalvular velocity was within the normal range. There was no evidence for stenosis. No regurgitation. TRICUSPID VALVE: Structurally normal valve. Doppler: Transvalvular velocity was within the normal range. Mild regurgitation. PULMONARY ARTERY: The main pulmonary artery was normal-sized. Systolic pressure was mildly to moderately increased, estimated to be 52mm Hg. RIGHT ATRIUM: The atrium was normal in size. PERICARDIUM: There was no pericardial effusion. SYSTEMIC VEINS: Inferior vena cava: The vessel was normal in size. Patient weight: 287.4lb _Ejection fraction:_ 65-75% _Fractional shortening:_ 32% up to 5Kg 5-11.5Kg 11.6-22.9Kg 23-45Kg 45-57Kg Aortic Root 7-13 <17 13-22 17-27 17-27 LA diam 6-13 <23 24-38 33-47 37-40 RVID 10-17 7-15 7-15 7-18 8-17 LVIDd 12-22 <32 24-38 33-47 37-40 LVPW 2-4 3-6 5-7 6-8 7-8 IVS 2-4 3-6 5-7 6-8 7-8 BASIC MEASUREMENTS ADULT NORMAL Left ventricle LV internal dimension, ED, chordal 44.1 mm 43-52 level, PLAX LV internal dimension, ES, chordal 34.2 mm 23-38 level, PLAX Fractional shortening, chordal level, *22 % >29 PLAX LV posterior wall thickness, ED 8.55 mm IVS/LVPW ratio, ED 1 <1.3 Ventricular septum Septal thickness, ED 8.55 mm Aortic valve Leaflet separation 21 mm 15-26 Aorta Root diameter, ED 28 mm Left atrium Anterior-posterior dimension 22 mm Anterior-posterior dimension index 0.95 cm/m^2 <2.2 BASIC MEASUREMENTS ADULT NORMAL Aortic valve Leaflet separation 21 mm 15-26 DOPPLER MEASUREMENTS ADULT NORMAL Aortic valve Peak velocity, S 141 cm/s Mean velocity, S 93.2 cm/s VTI, S 25.5 cm Mean gradient, S 4 mm Hg Valve area, VTI 2.77 cm^2 Valve area index, VTI 1.2 cm^2/m^2 Valve area, Vmax 2.52 cm^2 Valve area index, Vmax 1.09 cm^2/m^2 Mitral valve Peak E-wave velocity 65.6 cm/s Peak A-wave velocity 90.3 cm/s Deceleration time *236 ms 150-230 Peak E/A ratio 0.7 Tricuspid valve Regurgitant peak velocity 361 cm/s Peak RV-RA gradient, S 52 mm Hg Maximal regurgitant velocity 361 cm/s Pulmonic valve Peak velocity, S 47.4 cm/s LEGEND: Mean values are shown as u=mean value. Asterisk (*) marr values outside specified normal range. Prepared and signed by Shahzad Brito [id number]
--- NOTE | 2016-09-21 21:15 | HHI.PR ---
Immediate Post Op Note Procedure Date: September 21, 2016 Pre Op Diagnosis: feeding difficulties, need for feeding access Post Op Diagnosis: same Surgeon: Yaron Pimentel MD [employer] Boat Maker(s): see or sheet Procedure: lap g tube Findings: very long biliopancreatic limb, very distal jj anastomosis Complications: none Specimen(s) removed: none Estimated blood loss: 5cc Anesthesia: General Drains: None IVF (1000) Patient to: PACU Patient Condition: Good Yaron Pimentel MD September 21, 2016 21:15
--- NOTE | 2016-09-21 22:40 | EKG ---
Date Performed: 09/21/2016 Time Performed: 07:02:43 PTAGE: 70 years EKG: Sinus rhythm MODERATE INTRAVENTRICULAR CONDUCTION DELAY ST DEVIATION AND MODERATE T-WAVE ABNORMALITY, CONSIDER AN TEROLATERAL ISCHEMIA ST DEVIATION AND MODERATE T-WAVE ABNORMALITY, CONSIDER INFERIOR ISCHEMIA ABNORMA L ECG PREVIOUS TRACING : 09/18/2016 11.16 Compared to prior tracing no significant change DOCTOR: Kevin Hernandez Interpretating Date/Time 09/21/2016 22:39:28
[2016-09-22] VITALS (8 sets, daily range): BP systolic 105–151; BP diastolic 42–74; PULSE 82–114; RESP 17–20; TEMP 96.3–97.5; O2SAT 93–100
[2016-09-22] MEDS: CALAMINE/PRAMOXINE LOTION 180 ML BTL TOPICAL SCH ×3 (00:58→22:19)
[2016-09-22] MEDS: MUPIROCIN 2% CREAM 15 GM TOPICAL SCH ×3 (00:58→22:19)
[2016-09-22] MEDS: PANTOPRAZOLE SODIUM 40 MG VIAL IV PUSH SCH ×2 (05:37→16:48)
[2016-09-22] MEDS: SUCRALFATE 1 GM/10 ML CUP PO SCH ×4 (05:38→22:05)
[2016-09-22] MEDS: SODIUM CHLORIDE 0.9% FLUSH 5 ML FLUSH FLUSH SCH ×2 (10:23→22:18)
[2016-09-22] MEDS: DRONABINOL 5 MG CAP PO SCH ×2 (10:24→16:48)
[2016-09-22] MEDS: ASPIRIN EC 81 MG TABEC PO SCH (10:24)
[2016-09-22] MEDS: LISINOPRIL 10 MG TAB PO SCH (10:24)
[2016-09-22] MEDS: QUEtiapine FUMARATE 25 MG TAB PO SCH ×2 (10:24→22:03)
[2016-09-22] MEDS: LACTOBACILLUS ACIDOPHILUS TAB PO SCH ×2 (10:24→22:03)
[2016-09-22] MEDS: D5-1/2 NS + KCL 20 MEQ INJ 1,000 ML IV SCH ×2 (10:40→22:19)
--- NOTE | 2016-09-22 11:23 | HHI.PR ---
Subjective Subjective Notes Resting in bed Does not want abdomen touched student counsellor at bedside Objective Vitals/I&O Vital Signs Date Time Temp Pulse Resp B/P Pulse Ox O2 Delivery O2 Flow Rate FiO2 09/22/16 08:00 97.5 86 20 122/56 93 09/21/16 22:19 Nasal Cannula 2.00 Cardiovascular: Regular Lungs: Clear Abdomen: Other (lap sites c/d/i with SS in place; G tube in place without complications), Post-op tenderness Extremities: No edema A/P Assessment and Plan 70 year old female POD1 G tube placement due to inability to tolerate PO -Start trickle feeding today -Mobilize -Pain control Attending Statement g tube study shows tube in correct place patient seen at bedside start trickle tf Attestation The exam, history, and the medical decision-making described in the above note were completed with the assistance of the mid-level provider. I reviewed and agree with the findings presented. I attest that I had a [id number] encounter with the patient on the same day, and personally performed and documented my assessment and findings in the medical record. Yoli Roman September 22, 2016 11:23 Yaron Pimentel MD September 29, 2016 22:22
--- NOTE | 2016-09-22 12:35 | RADRPT ---
EXAM DATE/TIME: 09/22/2016 11:24 [facility] COMPARISON: No previous studies available for comparison. INDICATIONS : Attempted UGI; pt would not drink for exam. Evaluate Gtube placement with injection. MEDICAL HISTORY : Cardiovascular disease. Hypertension. SURGICAL HISTORY : Cholecystectomy. Gastric bypass. ENCOUNTER: Initial ACUITY: 2 months PAIN SCORE: 0/10 LOCATION: Bilateral abdomen. FINDINGS: Muck Operator views of the abdomen were performed in preparation for upper GI series in this patient with an existing gastrostomy tube. Muck Operator view shows normal caliber large and small bowel. No dilated loops of bowel observed. Gastrostom y tube overlies the epigastrium. The patient refused to drink barium therefore upper GI series could not be performed. As per the request of the ordering physician Gastrografin was instilled through the gastrostomy tube. This opacifies the stomach which is not dilated. CONCLUSION: 1. Patient refused to drink for upper GI series. 2. Gastrostomy tube in good position. Alexey Henderson Jr., MD on September 22, 2016 at 12:31 Board Certified Radiologist. This report was verified electronically.
--- NOTE | 2016-09-22 12:38 | MP ---
cc: KRISSY PIMENTEL MD DATE OF SURGERY 09/21/2016 PREOPERATIVE DIAGNOSES 1. Feeding difficulties. Need for feeding access. 2. Morbid obesity. 3. History of gastric bypass. POSTOPERATIVE DIAGNOSES 1. Feeding difficulties. Need for feeding access. 2. Morbid obesity. 3. History of gastric bypass. PROCEDURE PERFORMED Laparoscopic gastrostomy tube. SURGEON Dr. Krissy Pimentel OPERATIONS LIEUTENANT See OR sheet. ANESTHESIA GETA. IV FLUIDS 1000 cc. ESTIMATED BLOOD LOSS 5 cc. DRAINS None. COMPLICATIONS None. FINDINGS The patient had history of gastric bypass, noted to have a very long biliopancreatic limb, very distal jejunojejunal anastomosis. INDICATION The patient is a 70-year-old female with history of gastric bypass many years ago. Patient with decreased p.o. intake, rapid weight loss and failure to tolerate p.o. daily, feeding difficulties. Therefore, discussion was for gastrostomy versus jejunal tube for feeding access. Plan was for jejunostomy tube with possible gastrostomy tube. DETAILS OF PROCEDURE The patient was taken to the operating suite, placed in supine position. She was prepped and draped in the usual sterile fashion after induction of general endotracheal anesthesia. A brief time-out was done stating the correct patient, procedure and surgical site. We were all in agreement with this. Attention was first directed to the umbilicus. A small stab dez incision was made. A Visiport 5-mm under direct visualization was placed in the abdomen, the abdomen insufflated to 15 mmHg pneumoperitoneum. On inspection there was no evidence of injury. Two other ports were placed, one in the right lower quadrant, a 12-mm in the right upper quadrant, a 5-mm port. The third port was placed on the left lower quadrant. The patient was placed in Trendelenburg for position. Exploration of the abdomen noted minimal adhesions. The colon was grasped and retracted cephalad. The small bowel was identified. First the biliopancreatic limb was identified. The biliopancreatic limb was run down to the jejunojejunal anastomosis. This was very long biliopancreatic limb. Mina limb was also identified and run distally to the jejunojejunal anastomosis. Given the significant length and idea of possible better nutrition given such a significantly long biliopancreatic limb, the decision was made to go ahead and do gastrostomy tube instead of jejunostomy tube. The remnant stomach was identified. Minimal adhesions to the abdominal wall were noted. A local anesthetic needle was obtained and placed to identify landmark where appropriate spot for gastrostomy tube entrance would be. A stab/dez incision made with a 15 blade. The gastrostomy tube was then placed using Gerri clamp; it was a 24-Czech gastrostomy tube. The remnant stomach was grasped, harmonic scalpel used to create gastrotomy in the anterior abdominal gastric stomach. This was dilated minimally. The G tube was then advanced through this whole. A 2-0 Polysorb was used for 3.8 attachments between the stomach and the anterior abdominal wall. The gastrostomy tube was also pursestringed in place. 8 cc was placed in the balloon and a tongue of omentum was obtained and sutured around the anterior abdominal wall as well. The tube was noted to sit comfortably without any tension. The foot was then secured in place. Next, the abdomen was then desufflated with 0 Vicryl on a UR6 and used to close the fascia. 4-0 Monocryl was used to close the subcuticular sutures and port sites. The tolerated the procedure well. There is no intraoperative complication. Lap and instrument counts were correct at the end of the procedure. The patient was extubated and taken to the PACU. MD MACIEL Ochoa/FRANKLYN /9:31 AM /12:24 PM
[2016-09-22] MEDS ORDERED: DIATRIZOATE MEGLUM/DIATRIZOATE SOD 120 ML BTL (for RAD DIAG) G-TUBE ONE (13:11)
--- NOTE | 2016-09-22 15:23 | HHI.GIFU ---
Subjective Remarks Pt resting in bed, visiting with family. Pt speaks unintelligibly but indicated that she always had nausea and was not having pain. (Jazmine Peterson SURVEILLANCE INSPECTOR) Objective Vitals I&O Vital Signs Date Time Temp Pulse Resp B/P Pulse Ox O2 Delivery O2 Flow Rate FiO2 09/22/16 11:40 85 09/22/16 09:10 94 Nasal Cannula 2.00 09/22/16 08:00 97.5 86 20 122/56 93 09/22/16 00:00 96.3 82 18 105/42 100 09/21/16 22:19 100 Nasal Cannula 2.00 09/21/16 19:25 100 16 114/57 98 Room Air 09/21/16 19:00 100 16 119/60 100 Nasal Cannula 2 09/21/16 18:40 97.5 103 16 124/60 100 Nasal Cannula 2 I/O 09/21/16 09/21/16 09/21/16 09/22/16 09/22/16 09/22/16 07:00 15:00 23:00 07:00 15:00 23:00 Intake Total 1250 ml Output Total 3 ml Balance 1247 ml Other 1250 ml Estimated Blood Loss 3 ml # Voids 2 0 # Bowel Movements 0 0 Imaging Last Impressions Abdomen X-Ray 09/22/16 0000 Signed Impressions: Service Date/Time: Thursday, September 22, 2016 11:24 - CONCLUSION: 1. Patient refused to drink for upper GI series. 2. Gastrostomy tube in good position. Alexey Henderson Jr., MD Chest X-Ray 09/18/16 0000 Signed Impressions: Service Date/Time: Sunday, September 18, 2016 11:51 - CONCLUSION: Tiny bilateral pleural effusions. KKory Florez MD Abdomen/Pelvis CT 09/08/16 0000 Signed Impressions: Service Date/Time: Thursday, September 08, 2016 21:55 - CONCLUSION: 1. No acute findings within the abdomen and pelvis. Colonic diverticulosis without diverticulitis. Previous gastric bypass surgery. 2. Small left-sided pleural effusion with mild basilar atelectasis. 3. Atrophic left kidney. Dillon Romero MD Hip MRI 07/05/16 0000 Signed Impressions: Service Date/Time: Tuesday, July 05, 2016 10:51 - CONCLUSION: 1. There is osteopenia primary degenerative changes at both hips, left greater than right. 2. Prominent osteophyte along the inferior articulating surface of the proximal left femur. 3. Nonspecific edema in the gluteus and hamstring muscles. 4. No acute bony fracture. Javier Fishman MD Lower Extremity Ultrasound 06/29/16 0000 Signed Impressions: Service Date/Time: Wednesday, June 29, 2016 10:07 - CONCLUSION: Negative for deep venous thrombosis. Alfredo Sanders MD FACR Cervical Spine MRI 06/27/16 0000 Signed Impressions: Service Date/Time: Monday, June 27, 2016 11:09 - CONCLUSION: Mild degenerative changes otherwise unremarkable cervical spine. Anselmo Leavitt MD Thoracic Spine MRI 06/25/16 0000 Signed Impressions: Service Date/Time: June 19:36 - CONCLUSION: 1. No fracture or subluxation of the thoracic spine. 2. Mild and fairly diffuse degenerative changes as above. 3. Mild left foraminal encroachment at T8/T9 and T9/T10. 4. No significant spinal stenosis at any level. 5. Incidentally seen tiny right and small left pleural effusions, nonspecific. Jeevan Arreola MD Lumbar Spine MRI 06/25/16 0000 Signed Impressions: Service Date/Time: June 19:36 - CONCLUSION: 1. Multilevel lumbar degenerative changes as detailed above. 2. Mild spinal stenosis at L3/L4 without evidence of transiting nerve root impingement. 3. Mild to moderate spinal stenosis at L4/L5 and possibly with mild mass effect/impingement on the transiting left L5 nerve root within the subarticular recess. 4. Mild bilateral foraminal encroachment L3/L4 and L4/L5. Mild to moderate bilateral foraminal encroachment at L5/S1. 5. No fracture or subluxation of the lumbar spine. Jeevan Arreola MD Hip and Pelvis X-Ray 06/25/16 0000 Signed Impressions: Service Date/Time: June 20:27 - CONCLUSION: Moderate to severe left hip' right is with considerable osteophytosis and an apparent large inferior joint body. No fracture or subluxation. Jeevan Arreola MD Physical Exam HEENT: EOMI. Normocephalic; atraumatic; no jaundice. CHEST: CTA, diminished CARDIAC: pt not cooperative for this part of exam ABDOMEN: Obese, soft; bowel sounds x 4 quadrants. Pt did not allow further exam inc inspection of j-tube EXTREMITIES: Generalized edema. SKIN: Generalized pallor EVENTS TRAFFIC CONTROLLER: Lethargic, unintelligible speech. (Jazmine Petersno) Assessment and Plan Plan ASSESSMENT: - Persistent N/V, ?gastroparesis. Of note, patient is s/p gastric bypass 5 years ago. She was evaluated with EGD/Colonoscopy (09/01/16)---> esophageal ulcer and anatomy C/W gastric bypass, colonoscopy showed diverticulosis, no sign of colitis. Pathology acute esophagitis, no fungal organisms are present. Abdomen/Pelvis CT (09/08/16)-----> 1. No acute findings within the abdomen and pelvis. Colonic diverticulosis without diverticulitis. Previous gastric bypass surgery. 2. Small left-sided pleural effusion with mild basilar atelectasis. 3. Atrophic left kidney. Still having persistent nausea- no vomiting. She continues to refuse all po meds except Atarax and Lortab. She still is not eating any po diet. States that she cannot. Funds Transfer Clerk is following and has recommend if PPN needed, CLINIMIX E 4.25/5 @ 70 mls/hr with 20% lipids @ 10 mls/hr. IR unable to place G/J tube secondary to hx of gastric bypass. Funds Transfer Clerk recommends Vital 1.5 @ 45mls/hr goal for tube feeding. Scopalamine, Protonix IV - refusing marinol, carafate, Not taking phenergan. Zofran. - Decreased appetite, refusing Marinol. States she cannot eat because of nausea. - Elevated LFTs. Stable. - Esophageal ulcer. Protonix. - Anemia, Hemoccult positive stool. S/P 3 units PRBC, HH has remained stable since. EGD/Colonoscopy as above. She did have a drop in Hgb yesterday from 8.7 to 6.6/21.0. Yesterday this is 9.2/27.8 after one unit- ? - CDiff colitis, s/p oral vanco, dificid. Colonoscopy without any signs of colitis. States diarrhea improved. PLAN: - TF per GS - Cont. Scopolamine - Cont. Protonix - Cont. Zofran prn - Funds Transfer Clerk recommends Vital 1.5 @ 45 mls/hr goal - supportive care - Pt seen and examined by Dr. Cervantes and myself and this note is written on his behalf (Jazmine Peterson) Physician Comments Seen and examined, No active bleeding. S/P J tube placement. Commence TF ( Bradley Cervantes MD) Jazmine Peterson September 22, 2016 15:23 Bradley Cervantes MD September 23, 2016 14:38
--- NOTE | 2016-09-22 17:53 | PD.CARD.PN ---
Subjective Subjective Remarks No CP or SOB, weak Objective Medications Current Medications Medications (Trade) Dose Ordered Sig/Alhaji Route Start Time Stop Time Status Last Admin (NS Flush) 2 ml UNSCH PRN FLUSH 06/23/16 20:00 07/25/16 18:44 (NS Flush) 2 ml BID FLUSH 06/23/16 21:00 09/20/16 09:17 (Lovenox Inj) 40 mg Q24H SQ 06/24/16 09:00 Hold 08/31/16 09:20 (Narcan Inj) 0.4 mg UNSCH PRN IV 06/23/16 20:00 (Norvasc) 10 mg DAILY PO 06/24/16 10:00 09/22/16 10:24 (Ecotrin Ec) 81 mg DAILY PO 06/25/16 09:00 09/22/16 10:24 (Lasix) 20 mg DAILY PO 06/25/16 09:00 Hold 09/10/16 09:28 (Zoloft) 200 mg HS PO 06/24/16 21:00 09/17/16 21:43 (Tylenol) 650 mg Q6H PRN PO 06/26/16 16:15 ([place] 5-325 Mg) 1 tab Q4H PRN PO 06/26/16 16:15 09/20/16 16:09 (Caladryl Lotion) 1 applic Q12HR TOPICAL 06/27/16 09:00 09/22/16 00:58 (ZyrTEC) 10 mg HS PO 06/29/16 21:00 09/17/16 21:42 (Lactinex) 1 tab Q12HR PO 07/04/16 21:00 09/22/16 10:24 (Atarax) 50 mg Q6H PRN PO 07/08/16 18:15 09/18/16 12:49 (Pill Splitter) 1 ea UNSCH PRN OTHER 07/09/16 15:45 07/11/16 08:23 (Bactroban 2% Cream) 1 applic Q12HR TOPICAL 07/13/16 13:30 09/22/16 10:24 (Prinivil) 10 mg DAILY PO 08/14/16 09:00 09/22/16 10:24 (Marinol) 5 mg BID@11,16 PO 08/15/16 16:00 09/10/16 16:43 (Carafate Liq) 1 gm ACHS PO 09/08/16 11:00 09/22/16 16:48 (Transderm-Scop 1.5 Mg Patch.72 Hr) 1 patch Q3D T-DERMAL 09/11/16 18:00 09/20/16 17:30 Miscellaneous Information 1 1 Q3D T-DERMAL 09/14/16 18:00 09/20/16 17:30 (D5-1/2 NS + KCl 20 Meq Inj) 1,000 ml @ 84 mls/hr [id number] IV 09/12/16 12:15 09/20/16 21:20 Promethazine HCl 12.5 mg 12.5 mg Q6H PRN PO 09/13/16 18:00 Ondansetron HCl 8 mg/Dextrose 54 ml @ 216 mls/hr Q6H PRN IV 09/15/16 05:36 09/20/16 17:29 Lactated Ringer's 1,000 ml @ 30 mls/hr Q24H PRN IV 09/20/16 08:15 09/23/16 08:14 (NS 500 ml Inj) 500 ml @ 30 mls/hr [id number] PRN IV 09/20/16 08:15 09/23/16 08:14 (SEROquel) 25 mg BID PO 09/20/16 21:00 09/22/16 10:24 Miscellaneous Information ALL NURSING DEPARTME... UNSCH PRN .XX 09/21/16 18:34 09/22/16 18:33 (Pepcid Liq) 20 mg BID NG 09/22/16 21:00 Vital Signs / I&O Vital Signs Date Time Temp Pulse Resp B/P Pulse Ox O2 Delivery O2 Flow Rate FiO2 09/22/16 16:00 97.1 114 20 109/74 93 09/22/16 11:40 85 09/22/16 09:10 94 Nasal Cannula 2.00 09/22/16 08:00 97.5 86 20 122/56 93 09/22/16 00:00 96.3 82 18 105/42 100 09/21/16 22:19 100 Nasal Cannula 2.00 09/21/16 19:25 100 16 114/57 98 Room Air 09/21/16 19:00 100 16 119/60 100 Nasal Cannula 2 09/21/16 18:40 97.5 103 16 124/60 100 Nasal Cannula 2 I/O 09/21/16 09/21/16 09/21/16 09/22/16 09/22/16 09/22/16 07:00 15:00 23:00 07:00 15:00 23:00 Intake Total 1250 ml Output Total 3 ml Balance 1247 ml Other 1250 ml Estimated Blood Loss 3 ml # Voids 2 0 # Bowel Movements 0 0 Physical Exam GENERAL: In NAD SKIN: Warm and dry. HEAD: Normocephalic. EYES: No scleral icterus. No injection or drainage. NECK: Supple, trachea midline. No JVD or lymphadenopathy. CARDIOVASCULAR: Regular rate and rhythm without murmurs, gallops, or rubs. RESPIRATORY: Breath sounds equal bilaterally. No accessory muscle use. GASTROINTESTINAL: Abdomen soft, non-tender, nondistended. MUSCULOSKELETAL: No cyanosis, mild edema. . Laboratory Laboratory Tests Test 09/21/16 09/21/16 00:35 09:57 Blood Type A POSITIVE Antibody Screen NEGATIVE Crossmatch Leukocyte-Reduced Red Blood Cells Blood Bank Comment White Blood Count 8.7 TH/MM3 Red Blood Count 3.62 MIL/MM3 Hemoglobin 9.2 GM/DL Hematocrit 27.8 % Mean Corpuscular Volume 77.0 FL Mean Corpuscular Hemoglobin 25.4 PG Mean Corpuscular Hemoglobin 33.1 % Concent Red Cell Distribution Width 20.9 % Platelet Count 239 TH/MM3 Mean Platelet Volume 10.1 FL Neutrophils (%) (Auto) 71.4 % Lymphocytes (%) (Auto) 19.5 % Monocytes (%) (Auto) 5.0 % Eosinophils (%) (Auto) 3.9 % Basophils (%) (Auto) 0.2 % Neutrophils # (Auto) 6.2 TH/MM3 Lymphocytes # (Auto) 1.7 TH/MM3 Monocytes # (Auto) 0.4 TH/MM3 Eosinophils # (Auto) 0.3 TH/MM3 Basophils # (Auto) 0.0 TH/MM3 CBC Comment AUTO DIFF Differential Comment AUTO DIFF CONFIRMED Platelet Estimate NORMAL Platelet Morphology Comment ENLARGED Keratocytes OCC Sodium Level 142 MEQ/L Potassium Level 4.3 MEQ/L Chloride Level 112 MEQ/L Carbon Dioxide Level 23.2 MEQ/L Anion Gap 7 MEQ/L Blood Urea Nitrogen 13 MG/DL Creatinine 0.93 MG/DL Estimat Glomerular Filtration 60 ML/MIN Rate Random Glucose 84 MG/DL Calcium Level 8.2 MG/DL Imaging Last Impressions Abdomen X-Ray 09/22/16 0000 Signed Impressions: Service Date/Time: Thursday, September 22, 2016 11:24 - CONCLUSION: 1. Patient refused to drink for upper GI series. 2. Gastrostomy tube in good position. Alexey Henderson Jr., MD Chest X-Ray 09/18/16 0000 Signed Impressions: Service Date/Time: Sunday, September 18, 2016 11:51 - CONCLUSION: Tiny bilateral pleural effusions. Mary Florez MD Abdomen/Pelvis CT 09/08/16 0000 Signed Impressions: Service Date/Time: Thursday, September 08, 2016 21:55 - CONCLUSION: 1. No acute findings within the abdomen and pelvis. Colonic diverticulosis without diverticulitis. Previous gastric bypass surgery. 2. Small left-sided pleural effusion with mild basilar atelectasis. 3. Atrophic left kidney. Dillon Romero MD Hip MRI 07/05/16 0000 Signed Impressions: Service Date/Time: Tuesday, July 05, 2016 10:51 - CONCLUSION: 1. There is osteopenia primary degenerative changes at both hips, left greater than right. 2. Prominent osteophyte along the inferior articulating surface of the proximal left femur. 3. Nonspecific edema in the gluteus and hamstring muscles. 4. No acute bony fracture. Javier Fishman MD Lower Extremity Ultrasound 06/29/16 0000 Signed Impressions: Service Date/Time: Wednesday, June 29, 2016 10:07 - CONCLUSION: Negative for deep venous thrombosis. Alfredo Sanders MD FACR Cervical Spine MRI 06/27/16 0000 Signed Impressions: Service Date/Time: Monday, June 27, 2016 11:09 - CONCLUSION: Mild degenerative changes otherwise unremarkable cervical spine. Anselmo Leavitt MD Thoracic Spine MRI 06/25/16 0000 Signed Impressions: Service Date/Time: June 19:36 - CONCLUSION: 1. No fracture or subluxation of the thoracic spine. 2. Mild and fairly diffuse degenerative changes as above. 3. Mild left foraminal encroachment at T8/T9 and T9/T10. 4. No significant spinal stenosis at any level. 5. Incidentally seen tiny right and small left pleural effusions, nonspecific. Jeevan Arreola MD Lumbar Spine MRI 06/25/16 0000 Signed Impressions: Service Date/Time: June 19:36 - CONCLUSION: 1. Multilevel lumbar degenerative changes as detailed above. 2. Mild spinal stenosis at L3/L4 without evidence of transiting nerve root impingement. 3. Mild to moderate spinal stenosis at L4/L5 and possibly with mild mass effect/impingement on the transiting left L5 nerve root within the subarticular recess. 4. Mild bilateral foraminal encroachment L3/L4 and L4/L5. Mild to moderate bilateral foraminal encroachment at L5/S1. 5. No fracture or subluxation of the lumbar spine. Jeevan Arreola MD Hip and Pelvis X-Ray 06/25/16 0000 Signed Impressions: Service Date/Time: June 20:27 - CONCLUSION: Moderate to severe left hip' right is with considerable osteophytosis and an apparent large inferior joint body. No fracture or subluxation. Jeevan Arreola MD Assessment and Plan Problem List: (1) Failure to thrive in adult (2) Generalized weakness (3) CKD (chronic kidney disease), stage III (4) Morbid obesity (5) HTN (hypertension) (6) Sacral pressure ulcer Assessment and Plan Echo w nl LV syst fx and mild to moderate pulmonary hypertension. No new cardiac issues. J tube placed, start nutrition. Increase activity. PT/OT. Problem Qualifiers (1) Sacral pressure ulcer: Qualified Code: L89.151 - Decubitus ulcer of sacral region, stage 1 Shahzad Brito MD September 22, 2016 17:52
[2016-09-22] MEDS: CETIRIZINE HCL 10 MG TAB PO SCH (22:04)
[2016-09-22] MEDS: SERTRALINE HCL 100 MG TAB PO SCH (22:04)
[2016-09-22] MEDS: FAMOTIDINE 40 MG/5 ML LIQ 50 ML BTL NG SCH (22:05)
--- NOTE | 2016-09-22 23:22 | HHI.PR ---
Subjective Remarks Patient was seen this afternoon. Follow-up for generalized weakness, nausea vomiting. Patient is resting well, reports no acute concerns. Her speech is very soft, at times hard to understand. However, her thoughts appear to be coherent. is concern about hallucinations. Objective Vitals Vital Signs Date Time Temp Pulse Resp B/P Pulse Ox O2 Delivery O2 Flow Rate FiO2 09/22/16 21:10 95 Nasal Cannula 2.00 09/22/16 20:21 97.0 95 17 151/63 94 09/22/16 16:00 97.1 114 20 109/74 93 09/22/16 11:40 85 09/22/16 09:10 94 Nasal Cannula 2.00 09/22/16 08:00 97.5 86 20 122/56 93 09/22/16 00:00 96.3 82 18 105/42 100 I/O 09/21/16 09/21/16 09/21/16 09/22/16 09/22/16 09/22/16 07:00 15:00 23:00 07:00 15:00 23:00 Intake Total 1250 ml Output Total 3 ml Balance 1247 ml Other 1250 ml Estimated Blood Loss 3 ml # Voids 2 0 0 # Bowel Movements 0 0 Result Diagram: 09/21/16 0957 09/21/16 0957 Imaging Last Impressions Abdomen X-Ray 09/22/16 0000 Signed Impressions: Service Date/Time: Thursday, September 22, 2016 11:24 - CONCLUSION: 1. Patient refused to drink for upper GI series. 2. Gastrostomy tube in good position. Alexey Henderson Jr., MD Chest X-Ray 09/18/16 0000 Signed Impressions: Service Date/Time: Sunday, September 18, 2016 11:51 - CONCLUSION: Tiny bilateral pleural effusions. Mary Florez MD Abdomen/Pelvis CT 09/08/16 0000 Signed Impressions: Service Date/Time: Thursday, September 08, 2016 21:55 - CONCLUSION: 1. No acute findings within the abdomen and pelvis. Colonic diverticulosis without diverticulitis. Previous gastric bypass surgery. 2. Small left-sided pleural effusion with mild basilar atelectasis. 3. Atrophic left kidney. Dillon Romero MD Hip MRI 07/05/16 0000 Signed Impressions: Service Date/Time: Tuesday, July 05, 2016 10:51 - CONCLUSION: 1. There is osteopenia primary degenerative changes at both hips, left greater than right. 2. Prominent osteophyte along the inferior articulating surface of the proximal left femur. 3. Nonspecific edema in the gluteus and hamstring muscles. 4. No acute bony fracture. Javier Fishman MD Lower Extremity Ultrasound 06/29/16 0000 Signed Impressions: Service Date/Time: Wednesday, June 29, 2016 10:07 - CONCLUSION: Negative for deep venous thrombosis. Alfredo Sanders MD FACR Cervical Spine MRI 06/27/16 0000 Signed Impressions: Service Date/Time: Monday, June 27, 2016 11:09 - CONCLUSION: Mild degenerative changes otherwise unremarkable cervical spine. Anselmo Leavitt MD Thoracic Spine MRI 06/25/16 0000 Signed Impressions: Service Date/Time: June 19:36 - CONCLUSION: 1. No fracture or subluxation of the thoracic spine. 2. Mild and fairly diffuse degenerative changes as above. 3. Mild left foraminal encroachment at T8/T9 and T9/T10. 4. No significant spinal stenosis at any level. 5. Incidentally seen tiny right and small left pleural effusions, nonspecific. Jeevan Arreola MD Lumbar Spine MRI 06/25/16 Signed Impressions: Service Date/Time: June 19:36 - CONCLUSION: 1. Multilevel lumbar degenerative changes as detailed above. 2. Mild spinal stenosis at L3/L4 without evidence of transiting nerve root impingement. 3. Mild to moderate spinal stenosis at L4/L5 and possibly with mild mass effect/impingement on the transiting left L5 nerve root within the subarticular recess. 4. Mild bilateral foraminal encroachment L3/L4 and L4/L5. Mild to moderate bilateral foraminal encroachment at L5/S1. 5. No fracture or subluxation of the lumbar spine. Jeevan Arreola MD Hip and Pelvis X-Ray 06/25/16 0000 Signed Impressions: Service Date/Time: June 20:27 - CONCLUSION: Moderate to severe left hip' right is with considerable osteophytosis and an apparent large inferior joint body. No fracture or subluxation. Jeevan Arreola MD Objective Remarks GENERAL: Alert, Oriented to person, place, month. Knows the name of the current President. NAD. SKIN: Warm and dry. HEAD: Normocephalic. EYES: No scleral icterus. No injection or drainage. NECK: Supple, trachea midline. No JVD or lymphadenopathy. CARDIOVASCULAR: Regular rate and rhythm without murmurs, gallops, or rubs. RESPIRATORY: Breath sounds equal bilaterally. No accessory muscle use. GASTROINTESTINAL: Abdomen soft, non-tender except mid right abdominal tenderness on palpation, nondistended. MUSCULOSKELETAL: No cyanosis, or edema. BACK: Nontender without obvious deformity. No CVA tenderness. Procedures 09/01/2016 Colonoscopy IMPRESSIONS: 1. Diverticolosis in left colon 2. The colonic mucosa appeared normal 3. The colon mucosa was otherwise normal 4. Retroflexed views revealed no abnormalities 5. Revealed no abnormalities of the rectum A/P Problem List: (1) Total self-care deficit ICD Code: R41.89 Status: Acute (2) Sacral pressure ulcer ICD Code: L89.159 Status: Chronic (3) Subclinical hypothyroidism ICD Code: E03.9 Status: Acute (4) Radiculopathy of lumbar region ICD Code: M54.16 Status: Acute Assessment and Plan Mrs. Arreola is a 70-year-old female with a known history of hypertension, obesity , arthritis, status post gastric bypass who presented to the ED on 06/23/16 with complaints of generalized weakness for two weeks. Apparently patient had been discharged on 06/08/16 with home health care and sustained a fall at home with progressive weakness. Supposedly she is wheelchair bound at home and unable to transfer independently. Poor appetite secondary to nausea: -GI and dietitian is following. on Zofran IV PRN. Continue IV Reglan. On scopolamine patch Continue Marinol for appetite stimulant. Full liquids per GI. -GI recommended GJ. IR unable to place one since patient had gastric bypass in the past. -Surgery performed G tube placement on 09/21/2016. Patient is currently on tube feed. Epigastric pain likely secondary to ulcer - Seem to improve. - No IV access. Will start patient on Famotidine Liq via G tube. Sacral pressure ulcer, resolved - Encourage repositioning patient every 2 hours. Specialty mattress continued. C. difficile diarrhea -Diarrhea is currently improved. Last BM 09/05. Last Tox PCR positive on 08/19. Has previously been treated with Flagyl, oral vancomycin. ID previously consulted on 08/20 with recommendations to discontinue Vanco and begin Dificid, completed course of Dificid. Generalized weakness - Continue physical therapy. Will need nursing facility at discharge, case management following, but patient declined. she stated she wants to go home. Lumbar radiculopathy - Neurosurgery signed off, no surgical intervention recommended at this time. Control pain [place] PRN per pain scale. Anemia, GI bleed - Stool Hemoccult is positive on 08/30. Status post EGD, which showed esophageal ulcer. S/p transfusion 2 units on 09/02. Hb stable. Other chronic medical history includes osteoarthritis - CKD stage III are stable at this time. - Hallucinations - patient appears to be appropriate at the time of this exam. She is alert, oriented to person, place, month. Knows the name of the President of the [place]. - If hallucinations continues to occur, we will re-consult Psychiatry and/or try low dose haloperidol. DVT prophylaxis: SCDs/TEDs. Problem Qualifiers (1) Sacral pressure ulcer: Qualified Code: L89.151 - Decubitus ulcer of sacral region, stage 1 Salvador Alcocer DO September 22, 2016 23:22
[2016-09-23] VITALS (8 sets, daily range): BP systolic 92–135; BP diastolic 46–70; PULSE 87–99; RESP 17–21; TEMP 97–98.7; O2SAT 85–100
--- NOTE | 2016-09-23 02:15 | RADRPT ---
EXAM DATE/TIME: 09/23/2016 01:19 [facility] COMPARISON: No previous studies available for comparison. INDICATIONS : Left arm swelling. MEDICAL HISTORY : Hypertension. Arthritis. C.diff. SURGICAL HISTORY : Cholecystectomy. section. Gastric bypass. ENCOUNTER: Initial ACUITY: 1 day PAIN SCORE: Non-responsive LOCATION: Left arm. FINDINGS: There is spontaneous flow documented in the brachial, basilic, cephalic, axillary, and subclavian vei ns. The vessels are compressible and augmentation response is documented. No filling defects are se en. The flow is phasic with respiration. Direction of flow in the jugular vein is caudal. CONCLUSION: 1. No evidence of deep venous thrombosis. Sreedhar Ritchie MD on September 23, 2016 at 2:14 Board Certified Radiologist. This report was verified electronically.
[2016-09-23] MEDS: SUCRALFATE 1 GM/10 ML CUP PO SCH ×4 (05:07→22:18)
[2016-09-23] MEDS: SODIUM CHLORIDE 0.9% FLUSH 5 ML FLUSH FLUSH SCH ×2 (09:00→22:18)
[2016-09-23] MEDS: LACTOBACILLUS ACIDOPHILUS TAB PO SCH ×2 (09:54→22:18)
[2016-09-23] MEDS: ASPIRIN EC 81 MG TABEC PO SCH (09:54)
[2016-09-23] MEDS: LISINOPRIL 10 MG TAB PO SCH (09:56)
[2016-09-23] MEDS: QUEtiapine FUMARATE 25 MG TAB PO SCH ×2 (09:56→22:18)
[2016-09-23] MEDS: FAMOTIDINE 40 MG/5 ML LIQ 50 ML BTL NG SCH ×2 (09:58→22:18)
[2016-09-23] MEDS: CALAMINE/PRAMOXINE LOTION 180 ML BTL TOPICAL SCH ×2 (10:00→22:20)
[2016-09-23] MEDS: MUPIROCIN 2% CREAM 15 GM TOPICAL SCH ×2 (10:05→22:20)
[2016-09-23] MEDS: D5-1/2 NS + KCL 20 MEQ INJ 1,000 ML IV SCH (10:25)
--- NOTE | 2016-09-23 11:19 | HHI.GIFU ---
Subjective Remarks Pt resting comfortably in bed. Denies abdominal pain, nausea, vomiting, diarrhea. Indicates she doesnt feel well b/c she takes too many medications. ( Jazmine Peterson) Objective Vitals I&O Vital Signs Date Time Temp Pulse Resp B/P Pulse Ox O2 Delivery O2 Flow Rate FiO2 09/23/16 08:00 98.7 94 20 130/60 87 09/23/16 05:15 97.7 99 17 135/50 94 09/23/16 00:49 97.0 99 17 106/46 94 09/22/16 21:10 95 Nasal Cannula 2.00 09/22/16 21:00 100 09/22/16 20:21 97.0 95 17 151/63 94 09/22/16 16:00 97.1 114 20 109/74 93 09/22/16 11:40 85 I/O 09/22/16 09/22/16 09/22/16 09/23/16 09/23/16 09/23/16 07:00 15:00 23:00 07:00 15:00 23:00 Output Total 350 ml Balance -350 ml Output Urine Total 350 ml Bladder Scan Volume Amount 300 ml # Voids 0 0 # Bowel Movements 0 2 Imaging Last Impressions Upper Extremity Ultrasound 09/23/16 0169 Signed Impressions: Service Date/Time: Friday, September 23, 2016 01:19 - CONCLUSION: 1. No evidence of deep venous thrombosis. Sreedhar Ritchie MD Abdomen X-Ray 09/22/16 0000 Signed Impressions: Service Date/Time: Thursday, September 22, 2016 11:24 - CONCLUSION: 1. Patient refused to drink for upper GI series. 2. Gastrostomy tube in good position. Alexey Henderson Jr., MD Chest X-Ray 09/18/16 0000 Signed Impressions: Service Date/Time: Sunday, September 18, 2016 11:51 - CONCLUSION: Tiny bilateral pleural effusions. KKory Florez MD Abdomen/Pelvis CT 09/08/16 0000 Signed Impressions: Service Date/Time: Thursday, September 08, 2016 21:55 - CONCLUSION: 1. No acute findings within the abdomen and pelvis. Colonic diverticulosis without diverticulitis. Previous gastric bypass surgery. 2. Small left-sided pleural effusion with mild basilar atelectasis. 3. Atrophic left kidney. Dillon Romero MD Hip MRI 07/05/16 0000 Signed Impressions: Service Date/Time: Tuesday, July 05, 2016 10:51 - CONCLUSION: 1. There is osteopenia primary degenerative changes at both hips, left greater than right. 2. Prominent osteophyte along the inferior articulating surface of the proximal left femur. 3. Nonspecific edema in the gluteus and hamstring muscles. 4. No acute bony fracture. Javier Fishman MD Lower Extremity Ultrasound 06/29/16 0000 Signed Impressions: Service Date/Time: Wednesday, June 29, 2016 10:07 - CONCLUSION: Negative for deep venous thrombosis. Alfredo Sanders MD FACR Cervical Spine MRI 06/27/16 0000 Signed Impressions: Service Date/Time: Monday, June 27, 2016 11:09 - CONCLUSION: Mild degenerative changes otherwise unremarkable cervical spine. Anselmo Leavitt MD Thoracic Spine MRI 06/25/16 0000 Signed Impressions: Service Date/Time: June 19:36 - CONCLUSION: 1. No fracture or subluxation of the thoracic spine. 2. Mild and fairly diffuse degenerative changes as above. 3. Mild left foraminal encroachment at T8/T9 and T9/T10. 4. No significant spinal stenosis at any level. 5. Incidentally seen tiny right and small left pleural effusions, nonspecific. Jeevan Arreola MD Lumbar Spine MRI 06/25/16 0000 Signed Impressions: Service Date/Time: June 19:36 - CONCLUSION: 1. Multilevel lumbar degenerative changes as detailed above. 2. Mild spinal stenosis at L3/L4 without evidence of transiting nerve root impingement. 3. Mild to moderate spinal stenosis at L4/L5 and possibly with mild mass effect/impingement on the transiting left L5 nerve root within the subarticular recess. 4. Mild bilateral foraminal encroachment L3/L4 and L4/L5. Mild to moderate bilateral foraminal encroachment at L5/S1. 5. No fracture or subluxation of the lumbar spine. Jeevan Arreola MD Hip and Pelvis X-Ray 06/25/16 0000 Signed Impressions: Service Date/Time: June 20:27 - CONCLUSION: Moderate to severe left hip' right is with considerable osteophytosis and an apparent large inferior joint body. No fracture or subluxation. Jeevan Arreola MD Physical Exam HEENT: EOMI. Normocephalic; atraumatic; no jaundice. CHEST: coarse breath sounds CARDIAC: RRR ABDOMEN: Obese, soft; bowel sounds x 4 quadrants. Pt did not allow further exam inc inspection of j-tube EXTREMITIES: Generalized edema. SKIN: Generalized pallor HAIR BALER: Lethargic, unintelligible speech. (Jazmine PetersonP) Assessment and Plan Plan ASSESSMENT: - Persistent N/V, ?gastroparesis. seems to be improved, pt w/o n/v today Of note, patient is s/p gastric bypass 5 years ago. She was evaluated with EGD/Colonoscopy (09/01/16)---> esophageal ulcer and anatomy C/W gastric bypass, colonoscopy showed diverticulosis, no sign of colitis. Pathology acute esophagitis, no fungal organisms are present. Abdomen/Pelvis CT (09/08/16)-----> 1. No acute findings within the abdomen and pelvis. Colonic diverticulosis without diverticulitis. Previous gastric bypass surgery. 2. Small left-sided pleural effusion with mild basilar atelectasis. 3. Atrophic left kidney. Still having persistent nausea- no vomiting. She continues to refuse all po meds except Atarax and Lortab. She still is not eating any po diet. States that she cannot. Pin Ticket Machine Operator is following and has recommend if PPN needed, CLINIMIX E 4.25/5 @ 70 mls/hr with 20% lipids @ 10 mls/hr. IR unable to place G/J tube secondary to hx of gastric bypass. Pin Ticket Machine Operator recommends Vital 1.5 @ 45mls/hr goal for tube feeding. Scopalamine, Protonix IV, zofran. - Decreased appetite- s/p GJ tube - Elevated LFTs. Stable. - Esophageal ulcer. Protonix. - Anemia, Hemoccult positive stool. S/P 3 units PRBC, HH has remained stable since. EGD/Colonoscopy as above. - CDiff colitis, s/p oral vanco, dificid. Colonoscopy without any signs of colitis. States diarrhea improved. PLAN: - TF per GS - Cont. Scopolamine - Cont. Protonix - Cont. Zofran prn - Pin Ticket Machine Operator recommends Vital 1.5 @ 45 mls/hr goal - supportive care - GI will sign off, please reconsult as needed - Pt seen and examined by Dr. Cervantes and myself and this note is written on his behalf (Jazmine Peterson) Physician Comments Seen and examined with RESOURCE ANALYST, unable to answer any questions for me. Tolerating TF at 10cc/hr.. at bedside. Repeat stool for C. Diff. Gi will sign off, reconsult as needed. Thank you (Bradley Cervantes MD) Jazmine Peterson September 23, 2016 11:19 Bradley Cervantes MD September 23, 2016 14:40
--- NOTE | 2016-09-23 11:51 | HHI.PR ---
Subjective Remarks Follow-up for generalized weakness, nausea vomiting. Patient continues to feel very weak. Per , she is also confused and hallucinating sometimes. Her urine output has been low. Objective Vitals Vital Signs Date Time Temp Pulse Resp B/P Pulse Ox O2 Delivery O2 Flow Rate FiO2 09/23/16 08:00 98.7 94 20 130/60 87 09/23/16 05:15 97.7 99 17 135/50 94 09/23/16 00:49 97.0 99 17 106/46 94 09/22/16 21:10 95 Nasal Cannula 2.00 09/22/16 21:00 100 09/22/16 20:21 97.0 95 17 151/63 94 09/22/16 16:00 97.1 114 20 109/74 93 I/O 09/22/16 09/22/16 09/22/16 09/23/16 09/23/16 09/23/16 07:00 15:00 23:00 07:00 15:00 23:00 Output Total 350 ml Balance -350 ml Output Urine Total 350 ml Bladder Scan Volume Amount 300 ml # Voids 0 0 # Bowel Movements 0 2 Result Diagram: 09/21/16 0957 09/21/16 0957 Imaging Last Impressions Upper Extremity Ultrasound 09/23/16 6569 Signed Impressions: Service Date/Time: Friday, September 23, 2016 01:19 - CONCLUSION: 1. No evidence of deep venous thrombosis. Sreedhar Ritchie MD Abdomen X-Ray 09/22/16 0000 Signed Impressions: Service Date/Time: Thursday, September 22, 2016 11:24 - CONCLUSION: 1. Patient refused to drink for upper GI series. 2. Gastrostomy tube in good position. Alexey Henderson Jr., MD Chest X-Ray 09/18/16 0000 Signed Impressions: Service Date/Time: Sunday, September 18, 2016 11:51 - CONCLUSION: Tiny bilateral pleural effusions. Mary Florez MD Abdomen/Pelvis CT 09/08/16 0000 Signed Impressions: Service Date/Time: Thursday, September 08, 2016 21:55 - CONCLUSION: 1. No acute findings within the abdomen and pelvis. Colonic diverticulosis without diverticulitis. Previous gastric bypass surgery. 2. Small left-sided pleural effusion with mild basilar atelectasis. 3. Atrophic left kidney. Dillon Romero MD Hip MRI 07/05/16 0000 Signed Impressions: Service Date/Time: Tuesday, July 05, 2016 10:51 - CONCLUSION: 1. There is osteopenia primary degenerative changes at both hips, left greater than right. 2. Prominent osteophyte along the inferior articulating surface of the proximal left femur. 3. Nonspecific edema in the gluteus and hamstring muscles. 4. No acute bony fracture. Javier Fishman MD Lower Extremity Ultrasound 06/29/16 Signed Impressions: Service Date/Time: Wednesday, June 29, 2016 10:07 - CONCLUSION: Negative for deep venous thrombosis. Alfredo Sanders MD FACR Cervical Spine MRI 06/27/16 Signed Impressions: Service Date/Time: Monday, June 27, 2016 11:09 - CONCLUSION: Mild degenerative changes otherwise unremarkable cervical spine. Anselmo Leavitt MD Thoracic Spine MRI 06/25/16 Signed Impressions: Service Date/Time: June 19:36 - CONCLUSION: 1. No fracture or subluxation of the thoracic spine. 2. Mild and fairly diffuse degenerative changes as above. 3. Mild left foraminal encroachment at T8/T9 and T9/T10. 4. No significant spinal stenosis at any level. 5. Incidentally seen tiny right and small left pleural effusions, nonspecific. Jeevan Arreola MD Lumbar Spine MRI 06/25/16 Signed Impressions: Service Date/Time: June 19:36 - CONCLUSION: 1. Multilevel lumbar degenerative changes as detailed above. 2. Mild spinal stenosis at L3/L4 without evidence of transiting nerve root impingement. 3. Mild to moderate spinal stenosis at L4/L5 and possibly with mild mass effect/impingement on the transiting left L5 nerve root within the subarticular recess. 4. Mild bilateral foraminal encroachment L3/L4 and L4/L5. Mild to moderate bilateral foraminal encroachment at L5/S1. 5. No fracture or subluxation of the lumbar spine. Jeevan Arreola MD Hip and Pelvis X-Ray 06/25/16 Signed Impressions: Service Date/Time: June 20:27 - CONCLUSION: Moderate to severe left hip' right is with considerable osteophytosis and an apparent large inferior joint body. No fracture or subluxation. Jeevan Arreola MD Objective Remarks GENERAL: Alert, Oriented to person, place, month. Knows the name of the current President. NAD. SKIN: Warm and dry. HEAD: Normocephalic. EYES: No scleral icterus. No injection or drainage. NECK: Supple, trachea midline. No JVD or lymphadenopathy. CARDIOVASCULAR: Regular rate and rhythm without murmurs, gallops, or rubs. RESPIRATORY: Breath sounds equal bilaterally. No accessory muscle use. GASTROINTESTINAL: Abdomen soft, non-tender except mid right abdominal tenderness on palpation, nondistended. MUSCULOSKELETAL: No cyanosis, or edema. BACK: Nontender without obvious deformity. No CVA tenderness. Procedures 09/01/2016 Colonoscopy IMPRESSIONS: 1. Diverticolosis in left colon 2. The colonic mucosa appeared normal 3. The colon mucosa was otherwise normal 4. Retroflexed views revealed no abnormalities 5. Revealed no abnormalities of the rectum A/P Problem List: (1) Total self-care deficit ICD Code: R41.89 Status: Acute (2) Sacral pressure ulcer ICD Code: L89.159 Status: Chronic (3) Subclinical hypothyroidism ICD Code: E03.9 Status: Acute (4) Radiculopathy of lumbar region ICD Code: M54.16 Status: Acute Assessment and Plan Mrs. Arreola is a 70-year-old female with a known history of hypertension, obesity , arthritis, status post gastric bypass who presented to the ED on 06/23/16 with complaints of generalized weakness for two weeks. Apparently patient had been discharged on 06/08/16 with home health care and sustained a fall at home with progressive weakness. Supposedly she is wheelchair bound at home and unable to transfer independently. - Anuria - Delcid catheter placed today. RN will re-check. Vascular access team had difficulty obtaining an IV Access. - Will ask Vascular access to attempt to place an IV access today. - If we can obtain IV access, we will start patient on Normal saline 125/cc/ hour. Poor appetite secondary to nausea -GI and dietitian is following. on Zofran IV PRN. On scopolamine patch Continue Marinol for appetite stimulant. Currently on tube feed. -Surgery performed G tube placement on 09/21/2016. Patient is currently on tube feed. Epigastric pain likely secondary to ulcer - Seem to improve. - No IV access. Continue Famotidine Liq via G tube. Sacral pressure ulcer, resolved - Encourage repositioning patient every 2 hours. Specialty mattress continued. C. difficile diarrhea -Diarrhea is currently improved. Last BM 09/05. Last Tox PCR positive on 08/19. Has previously been treated with Flagyl, oral vancomycin. ID previously consulted on 08/20 with recommendations to discontinue Vanco and begin Dificid, completed course of Dificid. Generalized weakness - Continue physical therapy. Will need nursing facility at discharge, case management following, but patient declined. she stated she wants to go home. Lumbar radiculopathy - Neurosurgery signed off, no surgical intervention recommended at this time. Control pain [place] PRN per pain scale. Anemia, GI bleed - Stool Hemoccult is positive on 08/30. Status post EGD, which showed esophageal ulcer. S/p transfusion 2 units on 09/02. Hb stable. Other chronic medical history includes osteoarthritis - CKD stage III are stable at this time. - Hallucinations - patient appears to be appropriate at the time of this exam but lethargic. DVT prophylaxis: SCDs/TEDs. Problem Qualifiers (1) Sacral pressure ulcer: Qualified Code: L89.151 - Decubitus ulcer of sacral region, stage 1 Salvador Alcocer DO September 23, 2016 11:51
[2016-09-23] MEDS: DRONABINOL 5 MG CAP PO SCH ×2 (12:27→18:02)
--- NOTE | 2016-09-23 16:49 | HHI.PR ---
Subjective Subjective Notes Resting in bed Has been sipping on liquids with no issues No emesis overnight Objective Vitals/I&O Vital Signs Date Time Temp Pulse Resp B/P Pulse Ox O2 Delivery O2 Flow Rate FiO2 09/23/16 16:00 98.2 87 20 103/55 98 09/23/16 12:04 21 09/22/16 21:10 Nasal Cannula 2.00 Cardiovascular: Regular Lungs: Clear Abdomen: Other (lap sites c/d/i; G tube in place with no complications ) Extremities: No edema A/P Assessment and Plan 70 year old female POD2 G tube placement due to inability to tolerate PO -Advance TF to 20 cc/hr + clears -Mobilize -Pain control Attending Statement patient seen at bedside s/p g tube no nausea tf at 20cc/hr on sips of clears Attestation The exam, history, and the medical decision-making described in the above note were completed with the assistance of the mid-level provider. I reviewed and agree with the findings presented. I attest that I had a [id number] encounter with the patient on the same day, and personally performed and documented my assessment and findings in the medical record. Yoli Roman September 23, 2016 16:49 Yaron Pimentel MD October 01, 2016 21:53
[2016-09-23] MEDS ORDERED: SODIUM CHLOR 0.9% 1000 ML INJ 1,000 ML IV SCH (17:00)
[2016-09-23 17:01] LABS: BASOPHIL # 0.1 TH/MM3 (0-0.2); BASOPHIL % 0.4 % (0.0-2.0); EOSINOPHIL # 0.3 TH/MM3 (0-0.4); EOSINOPHIL % 1.7 % (0.0-4.0); HEMATOCRIT 26.2 % (35.0-46.0); LYMPH % 11.3 % (9.0-44.0); LYMPHOCYTE # 1.8 TH/MM3 (1.0-4.8); MEAN CELL VOLUME 77.9 FL (80.0-100.0); MEAN CORPUSCULAR HEMOGLOBIN 25.3 PG (27.0-34.0); MEAN CORPUSCULAR HGB CONC 32.4 % (32.0-36.0); MONO % 4.2 % (0.0-8.0); NEUT % 82.4 % (16.0-70.0); PLATELET COUNT 254 TH/MM3 (150-450); RED BLOOD COUNT 3.36 MIL/MM3 (4.00-5.30); RED CELL DISTRIBUTION WIDTH 21.2 % (11.6-17.2); WHITE BLOOD COUNT 15.8 TH/MM3 (4.0-11.0)
--- NOTE | 2016-09-23 17:05 | PD.CARD.PN ---
Subjective Subjective Remarks No CP or SOB, nutrition initiated, still weak Objective Medications Current Medications Medications (Trade) Dose Ordered Sig/Alhaji Route Start Time Stop Time Status Last Admin (NS Flush) 2 ml UNSCH PRN FLUSH 06/23/16 20:00 07/25/16 18:44 (NS Flush) 2 ml BID FLUSH 06/23/16 21:00 09/20/16 09:17 (Lovenox Inj) 40 mg Q24H SQ 06/24/16 09:00 Hold 08/31/16 09:20 (Narcan Inj) 0.4 mg UNSCH PRN IV 06/23/16 20:00 (Norvasc) 10 mg DAILY PO 06/24/16 10:00 09/23/16 09:55 (Ecotrin Ec) 81 mg DAILY PO 06/25/16 09:00 09/23/16 09:54 (Lasix) 20 mg DAILY PO 06/25/16 09:00 Hold 09/10/16 09:28 (Zoloft) 200 mg HS PO 06/24/16 21:00 09/22/16 22:04 (Tylenol) 650 mg Q6H PRN PO 06/26/16 16:15 ([place] 5-325 Mg) 1 tab Q4H PRN PO 06/26/16 16:15 09/20/16 16:09 (Caladryl Lotion) 1 applic Q12HR TOPICAL 06/27/16 09:00 09/23/16 10:00 (ZyrTEC) 10 mg HS PO 06/29/16 21:00 09/22/16 22:04 (Lactinex) 1 tab Q12HR PO 07/04/16 21:00 09/23/16 09:54 (Atarax) 50 mg Q6H PRN PO 07/08/16 18:15 09/18/16 12:49 (Pill Splitter) 1 ea UNSCH PRN OTHER 07/09/16 15:45 07/11/16 08:23 (Bactroban 2% Cream) 1 applic Q12HR TOPICAL 07/13/16 13:30 09/23/16 10:05 (Prinivil) 10 mg DAILY PO 08/14/16 09:00 09/23/16 09:56 (Marinol) 5 mg BID@,16 PO 08/15/16 16:00 09/23/16 12:27 (Carafate Liq) 1 gm ACHS PO 09/08/16 11:00 09/23/16 12:27 (Transderm-Scop 1.5 Mg Patch.72 Hr) 1 patch Q3D T-DERMAL 09/11/16 18:00 09/20/16 17:30 Miscellaneous Information 1 Q3D T-DERMAL 09/14/16 18:00 09/20/16 17:30 Promethazine HCl 12.5 mg 12.5 mg Q6H PRN PO 09/13/16 18:00 (Zofran Inj/D5W Inj) 54 ml @ 216 mls/hr Q6H PRN IV 09/15/16 05:36 09/20/16 17:29 (SEROquel) 25 mg BID PO 09/20/16 21:00 09/23/16 09:56 Famotidine 20 mg 20 mg BID NG 09/22/16 21:00 09/23/16 09:58 (NS 1000 ml Inj) 1,000 ml @ 125 mls/hr Q8H IV 09/23/16 17:00 Vital Signs / I&O Vital Signs Date Time Temp Pulse Resp B/P Pulse Ox O2 Delivery O2 Flow Rate FiO2 09/23/16 16:00 98.2 87 20 103/55 98 09/23/16 12:04 21 09/23/16 12:00 97.8 90 21 120/70 85 96/62 09/23/16 08:00 98.7 94 20 130/60 87 09/23/16 05:15 97.7 99 17 135/50 94 09/23/16 00:49 97.0 99 17 106/46 94 09/22/16 21:10 95 Nasal Cannula 2.00 09/22/16 21:00 100 09/22/16 20:21 97.0 95 17 151/63 94 I/O 09/22/16 09/22/16 09/22/16 09/23/16 09/23/16 09/23/16 07:00 15:00 23:00 07:00 15:00 23:00 Intake Total 0 ml Output Total 350 ml Balance -350 ml 0 ml Intake Oral 0 ml Output Urine Total 350 ml Bladder Scan Volume Amount 300 ml # Voids 0 0 0 # Bowel Movements 0 2 1 Physical Exam GENERAL: In NAD SKIN: Warm and dry. HEAD: Normocephalic. EYES: No scleral icterus. No injection or drainage. NECK: Supple, trachea midline. No JVD or lymphadenopathy. CARDIOVASCULAR: Regular rate and rhythm without murmurs, gallops, or rubs. RESPIRATORY: Breath sounds equal bilaterally. No accessory muscle use. GASTROINTESTINAL: Abdomen soft, non-tender, nondistended. MUSCULOSKELETAL: No cyanosis, mild edema. . Laboratory Laboratory Tests Test 09/21/16 09/21/16 00:35 09:57 Blood Type A POSITIVE Antibody Screen NEGATIVE Crossmatch Leukocyte-Reduced Red Blood Cells Blood Bank Comment White Blood Count 8.7 TH/MM3 Red Blood Count 3.62 MIL/MM3 Hemoglobin 9.2 GM/DL Hematocrit 27.8 % Mean Corpuscular Volume 77.0 FL Mean Corpuscular Hemoglobin 25.4 PG Mean Corpuscular Hemoglobin 33.1 % Concent Red Cell Distribution Width 20.9 % Platelet Count 239 TH/MM3 Mean Platelet Volume 10.1 FL Neutrophils (%) (Auto) 71.4 % Lymphocytes (%) (Auto) 19.5 % Monocytes (%) (Auto) 5.0 % Eosinophils (%) (Auto) 3.9 % Basophils (%) (Auto) 0.2 % Neutrophils # (Auto) 6.2 TH/MM3 Lymphocytes # (Auto) 1.7 TH/MM3 Monocytes # (Auto) 0.4 TH/MM3 Eosinophils # (Auto) 0.3 TH/MM3 Basophils # (Auto) 0.0 TH/MM3 CBC Comment AUTO DIFF Differential Comment AUTO DIFF CONFIRMED Platelet Estimate NORMAL Platelet Morphology Comment ENLARGED Keratocytes OCC Sodium Level 142 MEQ/L Potassium Level 4.3 MEQ/L Chloride Level 112 MEQ/L Carbon Dioxide Level 23.2 MEQ/L Anion Gap 7 MEQ/L Blood Urea Nitrogen 13 MG/DL Creatinine 0.93 MG/DL Estimat Glomerular Filtration 60 ML/MIN Rate Random Glucose 84 MG/DL Calcium Level 8.2 MG/DL Imaging Last Impressions Upper Extremity Ultrasound 09/23/16 4185 Signed Impressions: Service Date/Time: Friday, September 23, 2016 01:19 - CONCLUSION: 1. No evidence of deep venous thrombosis. Sreedhar Ritchie MD Abdomen X-Ray 09/22/16 0000 Signed Impressions: Service Date/Time: Thursday, September 22, 2016 11:24 - CONCLUSION: 1. Patient refused to drink for upper GI series. 2. Gastrostomy tube in good position. Alexey Henderson Jr., MD Chest X-Ray 09/18/16 0000 Signed Impressions: Service Date/Time: Sunday, September 18, 2016 11:51 - CONCLUSION: Tiny bilateral pleural effusions. Mary Florez MD Abdomen/Pelvis CT 09/08/16 0000 Signed Impressions: Service Date/Time: Thursday, September 08, 2016 21:55 - CONCLUSION: 1. No acute findings within the abdomen and pelvis. Colonic diverticulosis without diverticulitis. Previous gastric bypass surgery. 2. Small left-sided pleural effusion with mild basilar atelectasis. 3. Atrophic left kidney. Dillon Romero MD Hip MRI 07/05/16 0000 Signed Impressions: Service Date/Time: Tuesday, July 05, 2016 10:51 - CONCLUSION: 1. There is osteopenia primary degenerative changes at both hips, left greater than right. 2. Prominent osteophyte along the inferior articulating surface of the proximal left femur. 3. Nonspecific edema in the gluteus and hamstring muscles. 4. No acute bony fracture. Javier Fishman MD Lower Extremity Ultrasound 06/29/16 0000 Signed Impressions: Service Date/Time: Wednesday, June 29, 2016 10:07 - CONCLUSION: Negative for deep venous thrombosis. Alfredo Sanders MD FACR Cervical Spine MRI 06/27/16 0000 Signed Impressions: Service Date/Time: Monday, June 27, 2016 11:09 - CONCLUSION: Mild degenerative changes otherwise unremarkable cervical spine. Anselmo Leavitt MD Thoracic Spine MRI 06/25/16 0000 Signed Impressions: Service Date/Time: June 19:36 - CONCLUSION: 1. No fracture or subluxation of the thoracic spine. 2. Mild and fairly diffuse degenerative changes as above. 3. Mild left foraminal encroachment at T8/T9 and T9/T10. 4. No significant spinal stenosis at any level. 5. Incidentally seen tiny right and small left pleural effusions, nonspecific. Jeevan Arreola MD Lumbar Spine MRI 06/25/16 0000 Signed Impressions: Service Date/Time: June 19:36 - CONCLUSION: 1. Multilevel lumbar degenerative changes as detailed above. 2. Mild spinal stenosis at L3/L4 without evidence of transiting nerve root impingement. 3. Mild to moderate spinal stenosis at L4/L5 and possibly with mild mass effect/impingement on the transiting left L5 nerve root within the subarticular recess. 4. Mild bilateral foraminal encroachment L3/L4 and L4/L5. Mild to moderate bilateral foraminal encroachment at L5/S1. 5. No fracture or subluxation of the lumbar spine. Jeevan Arreola MD Hip and Pelvis X-Ray 06/25/16 0000 Signed Impressions: Service Date/Time: June 20:27 - CONCLUSION: Moderate to severe left hip' right is with considerable osteophytosis and an apparent large inferior joint body. No fracture or subluxation. Jeevan Arreola MD Assessment and Plan Problem List: (1) Failure to thrive in adult (2) Generalized weakness (3) CKD (chronic kidney disease), stage III (4) Morbid obesity (5) HTN (hypertension) (6) Sacral pressure ulcer Assessment and Plan Remains stable from cardiac standpoint. Echo w nl LV syst fx and mild to moderate pulmonary hypertension. No new cardiac issues. J tube placed, nutrition started. Increase activity. PT/OT. D/w pt and family. Problem Qualifiers (1) Sacral pressure ulcer: Qualified Code: L89.151 - Decubitus ulcer of sacral region, stage 1 Quadrat,Shahzad SAHU September 23, 2016 17:05
[2016-09-23 17:09] LABS: HEMO FLAGS AUTO DIFF
[2016-09-23 17:31] LABS: BICARBONATE 19.9 MEQ/L (21.0-32.0)
[2016-09-23] MEDS: REMOVE OLD SCOPOLAMINE PATCH T-DERMAL SCH (18:00)
[2016-09-23] MEDS: SCOPOLAMINE 1.5 MG PATCH T-DERMAL SCH (18:48)
[2016-09-23 19:18] LABS: KERATOCYTES OCC (NORMAL); SCAN/DIFF AUTO DIFF CONFIRMED; TEARDROP RBCS 1+ (NORMAL)
[2016-09-23] MEDS: CETIRIZINE HCL 10 MG TAB PO SCH (22:18)
[2016-09-23] MEDS: SERTRALINE HCL 100 MG TAB PO SCH (22:18)
[2016-09-24] VITALS (9 sets, daily range): BP systolic 82–123; BP diastolic 51–66; PULSE 82–87; RESP 14–18; TEMP 96.3–97.9; O2SAT 93–96
--- NOTE | 2016-09-24 00:18 | RADRPT ---
EXAM DATE/TIME: 09/23/2016 23:59 [facility] COMPARISON: CHEST SINGLE AP, June 23, 2016, 14:13. INDICATIONS : Shortness of breath. MEDICAL HISTORY : Hypertension. SURGICAL HISTORY : None. ENCOUNTER: Subsequent ACUITY: 2 weeks PAIN SCORE: Non-responsive. LOCATION: Bilateral chest FINDINGS: There are findings of congestive heart failure with interstitial and alveolar opacity bilaterally. No pleural effusions are identified. The cardiac silhouette is enlarged in transverse diameter. There i s prominence of the aortic knob is with calcification characteristic of atherosclerotic vascular dise ase. CONCLUSION: 1. Cardiomegaly and findings of congestive heart failure. Sreedhar Ritchie MD on September 24, 2016 at 0:16 Board Certified Radiologist. This report was verified electronically.
[2016-09-24 05:07] LABS: BACTERIA, URINE RARE /hpf; BLOOD, URINE MOD (NEG); COMMENT (UR) CATH-CULTURE IND; CULTURE IF INDICATED CATH CULTURE IND; GLUCOSE,URINE NEG (NEG); GRANULAR CAST, URINE 6 /lpf; HYALINE CAST, URINE 41 /lpf (RARE); KETONE, URINE NEG (NEG); MUCUS URINE FEW /lpf (OCC); NITRITE,URINE NEG (NEG); PH, URINE 5.5 (5.0-8.5); RENAL EPITHELIAL CELLS <1 /hpf; SQUAMOUS EPITHELIAL CELL URINE 1 /hpf (0-5); TRANSITIONAL EPI CELLS, URINE <1 /hpf; URINE COLOR YELLOW (YELLW/STRAW); WAXY CAST, URINE 1 /lpf
[2016-09-24] MEDS: SUCRALFATE 1 GM/10 ML CUP PO SCH ×4 (05:37→20:19)
[2016-09-24] MEDS: LISINOPRIL 10 MG TAB PO SCH (09:00)
[2016-09-24] MEDS: SODIUM CHLORIDE 0.9% FLUSH 5 ML FLUSH FLUSH SCH ×2 (09:00→20:20)
[2016-09-24] MEDS: ASPIRIN EC 81 MG TABEC PO SCH (10:23)
[2016-09-24] MEDS: LACTOBACILLUS ACIDOPHILUS TAB PO SCH ×2 (10:24→20:19)
[2016-09-24] MEDS: QUEtiapine FUMARATE 25 MG TAB PO SCH ×2 (10:25→20:19)
[2016-09-24] MEDS: FAMOTIDINE 40 MG/5 ML LIQ 50 ML BTL NG SCH ×2 (10:27→20:19)
[2016-09-24] MEDS: CALAMINE/PRAMOXINE LOTION 180 ML BTL TOPICAL SCH ×2 (10:28→20:20)
[2016-09-24] MEDS: MUPIROCIN 2% CREAM 15 GM TOPICAL SCH ×2 (10:28→20:20)
[2016-09-24] MEDS: DRONABINOL 5 MG CAP PO SCH ×2 (11:00→16:00)
[2016-09-24] MEDS ORDERED: FUROSEMIDE 20 MG/2 ML VIAL IV PUSH ONE (11:15)
[2016-09-24] MEDS: ACETAMINOPHEN/HYDROcodone 325 MG/5 MG TAB PO PRN (12:58)
[2016-09-24] MEDS: cefTRIAXone INJ 1,000 MG in SODIUM CHLORIDE 0.9% INJ 100 ML IV SCH (13:00)
--- NOTE | 2016-09-24 13:02 | HHI.PR ---
Subjective Subjective Notes Resting in bed Only one episode of nausea overnight Pain controlled Objective Vitals/I&O Vital Signs Date Time Temp Pulse Resp B/P Pulse Ox O2 Delivery O2 Flow Rate FiO2 09/24/16 12:15 97.5 86 18 123/55 09/24/16 05:29 93 09/23/16 20:33 Nasal Cannula 2.00 09/23/16 12:04 21 Labs Laboratory Tests Test 09/23/16 09/24/16 16:43 03:30 White Blood Count 15.8 Red Blood Count 3.36 Hemoglobin 8.5 Hematocrit 26.2 Mean Corpuscular Volume 77.9 Mean Corpuscular Hemoglobin 25.3 Mean Corpuscular Hemoglobin 32.4 Concent Red Cell Distribution Width 21.2 Platelet Count 254 Mean Platelet Volume 9.4 Neutrophils (%) (Auto) 82.4 Lymphocytes (%) (Auto) 11.3 Monocytes (%) (Auto) 4.2 Eosinophils (%) (Auto) 1.7 Basophils (%) (Auto) 0.4 Neutrophils # (Auto) 13.0 Lymphocytes # (Auto) 1.8 Monocytes # (Auto) 0.7 Eosinophils # (Auto) 0.3 Basophils # (Auto) 0.1 CBC Comment AUTO DIFF Differential Comment AUTO DIFF CONFIRMED Tear Drop Cells 1+ Keratocytes OCC Sodium Level 141 Potassium Level 4.0 Chloride Level 113 Carbon Dioxide Level 19.9 Anion Gap 8 Blood Urea Nitrogen 22 Creatinine 1.39 Estimat Glomerular Filtration 37 Rate Random Glucose 88 Calcium Level 7.8 Urine Color YELLOW Urine Turbidity HAZY Urine pH 5.5 Urine Specific [place] 1.021 Urine Protein 30 Urine Glucose (UA) NEG Urine Ketones NEG Urine Occult Blood MOD Urine Nitrite NEG Urine Bilirubin NEG Urine Urobilinogen 2.0 Urine Leukocyte Esterase LARGE Urine RBC 11 Urine WBC 79 Urine Squamous Epithelial 1 Cells Urine Transitional Epithelial <1 Cells Urine Renal Epithelial Cells <1 Urine Bacteria RARE Urine Hyaline Casts 41 Urine Granular Casts 6 Urine Waxy Casts 1 Urine Mucus FEW Microscopic Urinalysis Comment CATH-CULTURE IND Date/Time Procedure Status Source Growth 09/24/16 03:30 Urine Culture Received Urine Catheterized Urine Pending Cardiovascular: Regular Lungs: Clear Abdomen: Other (lap sites c/d/i; G tube dressing removed ) Extremities: Other (generalized edema ) A/P Assessment and Plan 70 year old female POD3 G tube placement due to inability to tolerate PO -Maintain TF at 20 cc/hr for now + clears -Dietary consult for eval of TF ---continuous TF vs bolus -Mobilize -Pain control Attending Statement patient seen at bedside s/p g tube dietary consult for recs Attestation The exam, history, and the medical decision-making described in the above note were completed with the assistance of the mid-level provider. I reviewed and agree with the findings presented. I attest that I had a [id number] encounter with the patient on the same day, and personally performed and documented my assessment and findings in the medical record. Yoli Roman September 24, 2016 13:02 Yaron Pimentel MD October 01, 2016 21:58
--- NOTE | 2016-09-24 14:26 | HHI.PR ---
Subjective Remarks Follow-up for generalized weakness, UTI. Patient reports persistent weakness. No fever, chills. She reports some shortness of breath. Objective Vitals Vital Signs Date Time Temp Pulse Resp B/P Pulse Ox O2 Delivery O2 Flow Rate FiO2 09/24/16 13:37 96 Nasal Cannula 2.00 09/24/16 12:15 97.5 86 18 123/55 09/24/16 08:05 96.3 85 18 100/51 09/24/16 05:29 97.7 84 14 94/62 93 09/24/16 01:19 97.9 85 16 93/54 94 09/23/16 21:07 97.0 93 18 92/60 100 09/23/16 20:33 95 Nasal Cannula 2.00 09/23/16 16:00 98.2 87 20 103/55 98 I/O 09/23/16 09/23/16 09/23/16 09/24/16 09/24/16 09/24/16 07:00 15:00 23:00 07:00 15:00 23:00 Intake Total 0 ml Output Total 350 ml 350 ml Balance -350 ml 0 ml -350 ml Intake Oral 0 ml Output Urine Total 350 ml 350 ml Bladder Scan Volume Amount 300 ml # Voids 0 # Bowel Movements 2 1 1 Result Diagram: 09/23/16 1643 09/23/16 1643 Imaging Last Impressions Upper Extremity Ultrasound 09/23/16 0519 Signed Impressions: Service Date/Time: Friday, September 23, 2016 01:19 - CONCLUSION: 1. No evidence of deep venous thrombosis. Sreedhar Ritchie MD Chest X-Ray 09/23/16 0000 Signed Impressions: Service Date/Time: Friday, September 23, 2016 23:59 - CONCLUSION: 1. Cardiomegaly and findings of congestive heart failure. Sreedhar Ritchie MD Abdomen X-Ray 09/22/16 0000 Signed Impressions: Service Date/Time: Thursday, September 22, 2016 11:24 - CONCLUSION: 1. Patient refused to drink for upper GI series. 2. Gastrostomy tube in good position. Alexey Henderson Jr., MD Abdomen/Pelvis CT 09/08/16 0000 Signed Impressions: Service Date/Time: Thursday, September 08, 2016 21:55 - CONCLUSION: 1. No acute findings within the abdomen and pelvis. Colonic diverticulosis without diverticulitis. Previous gastric bypass surgery. 2. Small left-sided pleural effusion with mild basilar atelectasis. 3. Atrophic left kidney. Dillon Romero MD Hip MRI 07/05/16 0000 Signed Impressions: Service Date/Time: Tuesday, July 05, 2016 10:51 - CONCLUSION: 1. There is osteopenia primary degenerative changes at both hips, left greater than right. 2. Prominent osteophyte along the inferior articulating surface of the proximal left femur. 3. Nonspecific edema in the gluteus and hamstring muscles. 4. No acute bony fracture. Javier Fishman MD Lower Extremity Ultrasound 06/29/16 0000 Signed Impressions: Service Date/Time: Wednesday, June 29, 2016 10:07 - CONCLUSION: Negative for deep venous thrombosis. Alfredo Sanders MD FACR Cervical Spine MRI 06/27/16 0000 Signed Impressions: Service Date/Time: Monday, June 27, 2016 11:09 - CONCLUSION: Mild degenerative changes otherwise unremarkable cervical spine. Anselmo Leavitt MD Thoracic Spine MRI 06/25/16 0000 Signed Impressions: Service Date/Time: June 19:36 - CONCLUSION: 1. No fracture or subluxation of the thoracic spine. 2. Mild and fairly diffuse degenerative changes as above. 3. Mild left foraminal encroachment at T8/T9 and T9/T10. 4. No significant spinal stenosis at any level. 5. Incidentally seen tiny right and small left pleural effusions, nonspecific. Jeevan Arreola MD Lumbar Spine MRI 06/25/16 0000 Signed Impressions: Service Date/Time: June 19:36 - CONCLUSION: 1. Multilevel lumbar degenerative changes as detailed above. 2. Mild spinal stenosis at L3/L4 without evidence of transiting nerve root impingement. 3. Mild to moderate spinal stenosis at L4/L5 and possibly with mild mass effect/impingement on the transiting left L5 nerve root within the subarticular recess. 4. Mild bilateral foraminal encroachment L3/L4 and L4/L5. Mild to moderate bilateral foraminal encroachment at L5/S1. 5. No fracture or subluxation of the lumbar spine. Jeevan Arreola MD Hip and Pelvis X-Ray 06/25/16 0000 Signed Impressions: Service Date/Time: June 20:27 - CONCLUSION: Moderate to severe left hip' right is with considerable osteophytosis and an apparent large inferior joint body. No fracture or subluxation. Jeevan Arreola MD Objective Remarks GENERAL: Alert, NAD. SKIN: Warm and dry. HEAD: Normocephalic. EYES: No scleral icterus. No injection or drainage. NECK: Supple, trachea midline. No JVD or lymphadenopathy. CARDIOVASCULAR: Regular rate and rhythm without murmurs, gallops, or rubs. RESPIRATORY: Breath sounds equal bilaterally. No accessory muscle use. GASTROINTESTINAL: Abdomen soft, non-tender, nondistended. MUSCULOSKELETAL: No cyanosis, or edema. BACK: Nontender without obvious deformity. No CVA tenderness. Procedures 09/01/2016 Colonoscopy IMPRESSIONS: 1. Diverticolosis in left colon 2. The colonic mucosa appeared normal 3. The colon mucosa was otherwise normal 4. Retroflexed views revealed no abnormalities 5. Revealed no abnormalities of the rectum A/P Problem List: (1) Total self-care deficit ICD Code: R41.89 Status: Acute (2) Sacral pressure ulcer ICD Code: L89.159 Status: Chronic (3) Subclinical hypothyroidism ICD Code: E03.9 Status: Acute (4) Radiculopathy of lumbar region ICD Code: M54.16 Status: Acute Assessment and Plan Mrs. Arreola is a 70-year-old female with a known history of hypertension, obesity , arthritis, status post gastric bypass who presented to the ED on 06/23/16 with complaints of generalized weakness for two weeks. Apparently patient had been discharged on 06/08/16 with home health care and sustained a fall at home with progressive weakness. Supposedly she is wheelchair bound at home and unable to transfer independently. - Urinary tract infection - Culture pending. - Continue Ceftriaxone 1g Q24hrs. - Will follow CBC, BMP. - Acute kidney injury - Creatinine 0.93 --> 1.39. Urine output is low. - If BMP in the AM shows worsening creatinine, we will consult Nephrology - Pulmonary edema - CXR reviewed by me on 09/24/2016 shows diffuse pulmonary edema - Will give low dose IV lasix. If BP tolerates it, we may repeat Lasix. - C. difficile diarrhea - resolved. - Diarrhea is currently improved. Last BM 09/05. Last Tox PCR positive on . - Has previously been treated with Flagyl, oral vancomycin. - ID previously consulted on 08/20 with recommendations to discontinue Vanco and begin Dificid, completed course of Dificid. - Sacral pressure ulcer, resolved - Encourage repositioning patient every 2 hours. Specialty mattress continued. - Generalized weakness - Nutrition - Continue physical therapy. Patient wants to go home when discharged. - Continue Tube feed. Discussed with Tie Puller yesterday. - Tie Puller recommends tube feed via a pump as opposed to bolus feed. - Due to patient's history of Gastric bypass as well as gastroparesis, Tie Puller does not recommend bolus feeding. - I agree with the counselor education professor's assessment and would recommend continuous feeding via a pump. - Lumbar radiculopathy - Neurosurgery signed off, no surgical intervention recommended at this time. Control pain [place] PRN per pain scale. - Anemia, GI bleed - Stool Hemoccult is positive on 08/30. Status post EGD, which showed esophageal ulcer. S/p transfusion 2 units on 09/02. Hb stable. - Hallucinations - patient appears to be appropriate at the time of this exam but lethargic. Full code. DVT prophylaxis: SCDs/TEDs. Discussed with patient's at length. Prognosis is guarded. Patient's daughter will be in town tomorrow. Will discuss further. Problem Qualifiers (1) Sacral pressure ulcer: Qualified Code: L89.151 - Decubitus ulcer of sacral region, stage 1 Salvador Alcocer DO September 24, 2016 14:26
[2016-09-24] MEDS: CETIRIZINE HCL 10 MG TAB PO SCH (20:19)
[2016-09-24] MEDS: SERTRALINE HCL 100 MG TAB PO SCH (20:19)
[2016-09-24 23:16] LABS: ANION GAP 13 MEQ/L (5-15); AUTOMATED NEUTROPHIL # 10.4 TH/MM3 (1.8-7.7); BASOPHIL # 0.1 TH/MM3 (0-0.2); BASOPHIL % 0.4 % (0.0-2.0); BICARBONATE 18.3 MEQ/L (21.0-32.0); BLOOD UREA NITROGEN 25 MG/DL (7-18); CHLORIDE 111 MEQ/L (98-107); EOSINOPHIL # 0.5 TH/MM3 (0-0.4); EOSINOPHIL % 3.4 % (0.0-4.0); GLOMERULAR FILTRATION RATE 39 ML/MIN (>89); LYMPH % 14.2 % (9.0-44.0); LYMPHOCYTE # 1.9 TH/MM3 (1.0-4.8); MAGNESIUM 1.6 MG/DL (1.5-2.5); MEAN CELL VOLUME 76.2 FL (80.0-100.0); MEAN CORPUSCULAR HEMOGLOBIN 25.6 PG (27.0-34.0); MEAN CORPUSCULAR HGB CONC 33.6 % (32.0-36.0); MONO % 4.7 % (0.0-8.0); NEUT % 77.3 % (16.0-70.0); PLATELET COUNT 227 TH/MM3 (150-450); POTASSIUM 3.8 MEQ/L (3.5-5.1); RED BLOOD COUNT 3.28 MIL/MM3 (4.00-5.30); RED CELL DISTRIBUTION WIDTH 21.2 % (11.6-17.2); SODIUM (NA) 142 MEQ/L (136-145); WHITE BLOOD COUNT 13.4 TH/MM3 (4.0-11.0)
[2016-09-24 23:17] LABS: HEMO FLAGS AUTO DIFF
[2016-09-24 23:34] LABS: FREE T4 0.71 NG/DL (0.76-1.46)
[2016-09-25] VITALS (8 sets, daily range): BP systolic 58–128; BP diastolic 51–61; PULSE 72–90; RESP 18–20; TEMP 96.6–99.2; O2SAT 82–97
[2016-09-25 01:04] LABS: BANDS 13 % (0-6); EOSINOPHILS 2 % (0-4); MYELOCYTES 1 % (0-0); NEUTROPHIL # MANUAL DIFF 11.4 TH/MM3 (1.8-7.7); PLATELET ESTIMATE SMEAR NORMAL (NORMAL); POLYS (SEG NEUTROPHILS) 71 % (16-70); SCAN/DIFF FINAL DIFF MANUAL; WBC DIFF SAMPLE 100
[2016-09-25 01:05] LABS: PLATELET MORPHOLOGY ENLARGED (NORMAL)
[2016-09-25 01:06] LABS: ACANTHOCYTES OCC (NORMAL); DOHLE BODIES PRESENT (NONE SEEN); TOXIC VACUOLATION PRESENT (NONE SEEN)
[2016-09-25] MEDS: SUCRALFATE 1 GM/10 ML CUP PO SCH ×4 (05:32→19:59)
[2016-09-25] MEDS: FAMOTIDINE 40 MG/5 ML LIQ 50 ML BTL NG SCH ×2 (09:00→20:00)
[2016-09-25] MEDS: SODIUM CHLORIDE 0.9% FLUSH 5 ML FLUSH FLUSH SCH ×2 (09:00→20:00)
[2016-09-25] MEDS: LACTOBACILLUS ACIDOPHILUS TAB PO SCH ×2 (10:26→20:00)
[2016-09-25] MEDS: QUEtiapine FUMARATE 25 MG TAB PO SCH ×2 (10:26→20:00)
[2016-09-25] MEDS: LISINOPRIL 10 MG TAB PO SCH (10:26)
[2016-09-25] MEDS: ASPIRIN EC 81 MG TABEC PO SCH (10:26)
[2016-09-25] MEDS: MUPIROCIN 2% CREAM 15 GM TOPICAL SCH ×2 (10:27→20:01)
[2016-09-25] MEDS: CALAMINE/PRAMOXINE LOTION 180 ML BTL TOPICAL SCH ×2 (10:27→20:01)
[2016-09-25] MEDS: cefTRIAXone INJ 1,000 MG in SODIUM CHLORIDE 0.9% INJ 100 ML IV SCH (13:13)
[2016-09-25] MEDS: DRONABINOL 5 MG CAP PO SCH ×2 (13:13→16:19)
--- NOTE | 2016-09-25 16:21 | HHI.PR ---
Subjective Remarks Follow-up for generalized weakness, UTI. Patient appears to be more alert. Denies any chest pain, fever or chills. She complains of shortness of breath. Objective Vitals Vital Signs Date Time Temp Pulse Resp B/P Pulse Ox O2 Delivery O2 Flow Rate FiO2 09/25/16 12:25 98.4 80 18 88/55 97 09/25/16 08:16 98.2 85 18 58/ 82 09/25/16 04:00 98.0 72 20 128/61 94 09/25/16 00:14 98.6 90 18 105/60 92 09/24/16 20:21 85 115/63 09/24/16 20:15 97.8 87 16 82/66 94 I/O 09/24/16 09/24/16 09/24/16 09/25/16 09/25/16 09/25/16 07:00 15:00 23:00 07:00 15:00 23:00 Intake Total 240 ml 300 ml Output Total 350 ml 400 ml 300 ml Balance -350 ml -160 ml 0 ml Intake Oral 240 ml Tube Feeding 150 ml Other 150 ml Output Urine Total 350 ml 400 ml 300 ml # Bowel Movements 1 0 Result Diagram: 09/24/16224809/24/162248 Objective Remarks GENERAL: Alert, NAD. SKIN: Warm and dry. HEAD: Normocephalic. EYES: No scleral icterus. No injection or drainage. NECK: Supple, trachea midline. No JVD or lymphadenopathy. CARDIOVASCULAR: Regular rate and rhythm without murmurs, gallops, or rubs. RESPIRATORY: Breath sounds equal bilaterally. No accessory muscle use. GASTROINTESTINAL: Abdomen soft, non-tender, nondistended. MUSCULOSKELETAL: No cyanosis, or edema. BACK: Nontender without obvious deformity. No CVA tenderness. Procedures 09/01/2016 Colonoscopy IMPRESSIONS: 1. Diverticolosis in left colon 2. The colonic mucosa appeared normal 3. The colon mucosa was otherwise normal 4. Retroflexed views revealed no abnormalities 5. Revealed no abnormalities of the rectum A/P Problem List: (1) Total self-care deficit ICD Code: R41.89 Status: Acute (2) Sacral pressure ulcer ICD Code: L89.159 Status: Chronic (3) Subclinical hypothyroidism ICD Code: E03.9 Status: Acute (4) Radiculopathy of lumbar region ICD Code: M54.16 Status: Acute Assessment and Plan Mrs. Arreola is a 70-year-old female with a known history of hypertension, obesity , arthritis, status post gastric bypass who presented to the ED on 06/23/16 with complaints of generalized weakness for two weeks. Apparently patient had been discharged on 06/08/16 with home health care and sustained a fall at home with progressive weakness. Supposedly she is wheelchair bound at home and unable to transfer independently. - Urinary tract infection - Culture is growing Pseudomonas. - D/C Ceftriaxone and start Cefepime 2g Q8hrs. - Will consult ID for further input. - Acute kidney injury - Creatinine 0.93 --> 1.34. - Pulmonary edema - CXR reviewed by me on 09/24/2016 shows diffuse pulmonary edema - Received 10mg IV Lasix on 09/24/2016. - C. difficile diarrhea - resolved. - Diarrhea is currently improved. Last BM 09/05. Last Tox PCR positive on . - Has previously been treated with Flagyl, oral vancomycin. - ID previously consulted on 08/20 with recommendations to discontinue Vanco and begin Dificid, completed course of Dificid. - Sacral pressure ulcer, resolved - Encourage repositioning patient every 2 hours. Specialty mattress continued. - Generalized weakness - Nutrition - Continue physical therapy. Patient wants to go home when discharged. - Continue Tube feed. Discussed with Mails Supervisor yesterday. - Mails Supervisor recommends tube feed via a pump as opposed to bolus feed. - Due to patient's history of Gastric bypass as well as gastroparesis, Mails Supervisor does not recommend bolus feeding. - I agree with the outreach nurse's assessment and would recommend continuous feeding via a pump. - Lumbar radiculopathy - Neurosurgery signed off, no surgical intervention recommended at this time. Control pain [place] PRN per pain scale. - Anemia, GI bleed - Stool Hemoccult is positive on 08/30. Status post EGD, which showed esophageal ulcer. S/p transfusion 2 units on 09/02. Hb stable. Full code. DVT prophylaxis: SCDs/TEDs. Problem Qualifiers (1) Sacral pressure ulcer: Qualified Code: L89.151 - Decubitus ulcer of sacral region, stage 1 Salvador Alcocer DO September 25, 2016 4:21 pm
--- NOTE | 2016-09-25 16:45 | HHI.PR ---
Subjective Subjective Notes Patient has family visiting at bedside No nausea overnight Objective Vitals/I&O Vital Signs Date Time Temp Pulse Resp B/P Pulse Ox O2 Delivery O2 Flow Rate FiO2 09/25/16 12:25 98.4 80 18 88/55 97 09/24/16 13:37 Nasal Cannula 2.00 09/23/16 12:04 21 Labs Laboratory Tests Test 09/24/16 22:49 Sodium Level 142 Potassium Level 3.8 Chloride Level 111 Carbon Dioxide Level 18.3 Anion Gap 13 Blood Urea Nitrogen 25 Creatinine 1.34 Estimat Glomerular Filtration 39 Rate Random Glucose 86 Lactic Acid Level 1.6 Calcium Level 7.7 Magnesium Level 1.6 Troponin I LESS THAN 0.02 Free Thyroxine 0.71 Thyroid Stimulating Hormone 3.120 3rd Gen White Blood Count 13.4 Red Blood Count 3.28 Hemoglobin 8.4 Hematocrit 25.0 Mean Corpuscular Volume 76.2 Mean Corpuscular Hemoglobin 25.6 Mean Corpuscular Hemoglobin 33.6 Concent Red Cell Distribution Width 21.2 Platelet Count 227 Mean Platelet Volume 9.5 Neutrophils (%) (Auto) 77.3 Lymphocytes (%) (Auto) 14.2 Monocytes (%) (Auto) 4.7 Eosinophils (%) (Auto) 3.4 Basophils (%) (Auto) 0.4 Neutrophils # (Auto) 10.4 Lymphocytes # (Auto) 1.9 Monocytes # (Auto) 0.6 Eosinophils # (Auto) 0.5 Basophils # (Auto) 0.1 CBC Comment AUTO DIFF Differential Total Cells 100 Counted Neutrophils % (Manual) 71 Band Neutrophils % 13 Lymphocytes % 13 Eosinophils % 2 Neutrophils # (Manual) 11.4 Myelocytes 1 Differential Comment FINAL DIFF MANUAL Toxic Vacuolation PRESENT Dohle Bodies PRESENT Platelet Estimate NORMAL Platelet Morphology Comment ENLARGED Acanthocytes OCC Hematology Comments Date/Time Procedure Status Source Growth 09/24/16 03:30 Urine Culture - Preliminary Resulted Urine Catheterized Urine Pseudomonas Species Cardiovascular: Regular Lungs: Clear Abdomen: Other (obese; lap sites c/d/i; G tube in place with minimal drainage on 4x4 gauze ) Extremities: Other (generalized edema; BUE brusing ) A/P Assessment and Plan 70 year old female POD4 G tube placement due to inability to tolerate PO -Maintain TF at 30 cc/hr for now + clears -Dietary consult---recommend Vital 1.5 45 ml/hr---- advance to goal as tolerated -Mobilize -Pain control -GS will see PRN over the weekend Attending Statement s/p g tube still having po difficulties tolerating g tube feeds Attestation The exam, history, and the medical decision-making described in the above note were completed with the assistance of the mid-level provider. I reviewed and agree with the findings presented. I attest that I had a [id number] encounter with the patient on the same day, and personally performed and documented my assessment and findings in the medical record. Yoli Roman September 25, 2016 16:45 Yaron Pimentel MD October 01, 2016 22:10
[2016-09-25] MEDS: CEFEPIME INJ 2,000 MG in SODIUM CHLORIDE 0.9% INJ 100 ML IV SCH (19:01)
[2016-09-25] MEDS: SERTRALINE HCL 100 MG TAB PO SCH (19:59)
[2016-09-25] MEDS: CETIRIZINE HCL 10 MG TAB PO SCH (20:00)
[2016-09-26] VITALS (12 sets, daily range): BP systolic 88–137; BP diastolic 46–83; PULSE 81–89; RESP 20–28; TEMP 97.3–98.6; O2SAT 92–100
[2016-09-26] MEDS ORDERED: SODIUM CHLOR 0.9% 250 ML INJ 250 ML IV ONE (01:00)
[2016-09-26] MEDS: CEFEPIME INJ 2,000 MG in SODIUM CHLORIDE 0.9% INJ 100 ML IV SCH ×2 (05:09→17:46)
[2016-09-26] MEDS: SUCRALFATE 1 GM/10 ML CUP PO SCH ×4 (05:09→20:16)
[2016-09-26] MEDS: ASPIRIN EC 81 MG TABEC PO SCH (08:32)
[2016-09-26] MEDS: LACTOBACILLUS ACIDOPHILUS TAB PO SCH ×2 (08:32→20:16)
[2016-09-26] MEDS: QUEtiapine FUMARATE 25 MG TAB PO SCH ×2 (08:32→20:16)
[2016-09-26] MEDS: FAMOTIDINE 40 MG/5 ML LIQ 50 ML BTL NG SCH ×2 (09:00→20:18)
[2016-09-26] MEDS: SODIUM CHLORIDE 0.9% FLUSH 5 ML FLUSH FLUSH SCH ×2 (09:00→20:29)
[2016-09-26] MEDS: LISINOPRIL 10 MG TAB PO SCH (09:00)
[2016-09-26 09:21] LABS: BICARBONATE 21.2 MEQ/L (21.0-32.0)
[2016-09-26 09:31] LABS: POTASSIUM 4.4 MEQ/L (3.5-5.1)
[2016-09-26 09:52] LABS: CALCIUM-PROTEIN CORRECTED 8.6 MG/DL (8.5-10.1)
--- NOTE | 2016-09-26 10:01 | HHI.PR ---
Subjective Remarks Follow-up for generalized weakness, UTI. Patient mumbles some words but difficult to understand. Daughter is at bedside. Daughter complains that patient's dysarthria is not her baseline and she also complains of left-sided weakness. No fever or chills. Objective Vitals Vital Signs Date Time Temp Pulse Resp B/P Pulse Ox O2 Delivery O2 Flow Rate FiO2 09/26/16 07:41 98.0 88 22 108/54 95 09/26/16 04:00 98.1 84 20 114/59 97 09/26/16 02:12 81 127/53 09/26/16 01:41 81 107/56 09/26/16 00:00 98.6 86 20 95/57 92 09/25/16 21:57 96 Nasal Cannula 2.00 09/25/16 21:10 99/51 09/25/16 20:00 96.6 20 82/52 09/25/16 17:59 Nasal Cannula 2.00 09/25/16 17:15 99.2 78 18 99/53 09/25/16 12:25 98.4 80 18 88/55 97 I/O 09/25/16 09/25/16 09/25/16 09/26/16 09/26/16 09/26/16 07:00 15:00 23:00 07:00 15:00 23:00 Intake Total 300 ml 360 ml 580 ml Output Total 300 ml 150 ml 300 ml Balance 0 ml 210 ml 280 ml Intake Oral 360 ml IV Total 250 ml Tube Feeding 150 ml 180 ml Other 150 ml 150 ml Output Urine Total 300 ml 150 ml 300 ml # Bowel Movements 0 Result Diagram: 09/24/16 2249 09/26/16 0740 Imaging Last Impressions Upper Extremity Ultrasound 09/23/16 8689 Signed Impressions: Service Date/Time: Friday, September 23, 2016 01:19 - CONCLUSION: 1. No evidence of deep venous thrombosis. Sreedhar Ritchie MD Chest X-Ray 09/23/16 0000 Signed Impressions: Service Date/Time: Friday, September 23, 2016 23:59 - CONCLUSION: 1. Cardiomegaly and findings of congestive heart failure. Sreedhar Ritchie MD Abdomen X-Ray 09/22/16 0000 Signed Impressions: Service Date/Time: Thursday, September 22, 2016 11:24 - CONCLUSION: 1. Patient refused to drink for upper GI series. 2. Gastrostomy tube in good position. Alexey Henderson Jr., MD Abdomen/Pelvis CT 09/08/16 0000 Signed Impressions: Service Date/Time: Thursday, September 08, 2016 21:55 - CONCLUSION: 1. No acute findings within the abdomen and pelvis. Colonic diverticulosis without diverticulitis. Previous gastric bypass surgery. 2. Small left-sided pleural effusion with mild basilar atelectasis. 3. Atrophic left kidney. Dillon Romero MD Hip MRI 07/05/16 0000 Signed Impressions: Service Date/Time: Tuesday, July 05, 2016 10:51 - CONCLUSION: 1. There is osteopenia primary degenerative changes at both hips, left greater than right. 2. Prominent osteophyte along the inferior articulating surface of the proximal left femur. 3. Nonspecific edema in the gluteus and hamstring muscles. 4. No acute bony fracture. Javier Fishman MD Lower Extremity Ultrasound 06/29/16 0000 Signed Impressions: Service Date/Time: Wednesday, June 29, 2016 10:07 - CONCLUSION: Negative for deep venous thrombosis. Alfredo Sanders MD FACR Cervical Spine MRI 06/27/16 0000 Signed Impressions: Service Date/Time: Monday, June 27, 2016 11:09 - CONCLUSION: Mild degenerative changes otherwise unremarkable cervical spine. Anselmo Leavitt MD Thoracic Spine MRI 06/25/16 0000 Signed Impressions: Service Date/Time: June 19:36 - CONCLUSION: 1. No fracture or subluxation of the thoracic spine. 2. Mild and fairly diffuse degenerative changes as above. 3. Mild left foraminal encroachment at T8/T9 and T9/T10. 4. No significant spinal stenosis at any level. 5. Incidentally seen tiny right and small left pleural effusions, nonspecific. Jeevan Arreola MD Lumbar Spine MRI 06/25/16 0000 Signed Impressions: Service Date/Time: June 19:36 - CONCLUSION: 1. Multilevel lumbar degenerative changes as detailed above. 2. Mild spinal stenosis at L3/L4 without evidence of transiting nerve root impingement. 3. Mild to moderate spinal stenosis at L4/L5 and possibly with mild mass effect/impingement on the transiting left L5 nerve root within the subarticular recess. 4. Mild bilateral foraminal encroachment L3/L4 and L4/L5. Mild to moderate bilateral foraminal encroachment at L5/S1. 5. No fracture or subluxation of the lumbar spine. Jeevan Arreola MD Hip and Pelvis X-Ray 06/25/16 0000 Signed Impressions: Service Date/Time: June 20:27 - CONCLUSION: Moderate to severe left hip' right is with considerable osteophytosis and an apparent large inferior joint body. No fracture or subluxation. Jeevan Arreola MD Objective Remarks GENERAL: Alert, NAD. SKIN: Warm and dry. HEAD: Normocephalic. EYES: No scleral icterus. No injection or drainage. NECK: Supple, trachea midline. No JVD or lymphadenopathy. CARDIOVASCULAR: Regular rate and rhythm without murmurs, gallops, or rubs. RESPIRATORY: Breath sounds equal bilaterally. No accessory muscle use. GASTROINTESTINAL: Abdomen soft, non-tender, nondistended. MUSCULOSKELETAL: No cyanosis, or edema. BACK: Nontender without obvious deformity. No CVA tenderness. Procedures 09/01/2016 Colonoscopy IMPRESSIONS: 1. Diverticolosis in left colon 2. The colonic mucosa appeared normal 3. The colon mucosa was otherwise normal 4. Retroflexed views revealed no abnormalities 5. Revealed no abnormalities of the rectum A/P Problem List: (1) Total self-care deficit ICD Code: R41.89 Status: Acute (2) Sacral pressure ulcer ICD Code: L89.159 Status: Chronic (3) Subclinical hypothyroidism ICD Code: E03.9 Status: Acute (4) Radiculopathy of lumbar region ICD Code: M54.16 Status: Acute Assessment and Plan Mrs. Arreola is a 70-year-old female with a known history of hypertension, obesity , arthritis, status post gastric bypass who presented to the ED on 06/23/16 with complaints of generalized weakness for two weeks. Apparently patient had been discharged on 06/08/16 with home health care and sustained a fall at home with progressive weakness. Supposedly she is wheelchair bound at home and unable to transfer independently. - Urinary tract infection - Culture is growing Pseudomonas. - D/C Ceftriaxone and start Cefepime 2g Q8hrs. - Infectious disease reconsulted for Pseudomonas UTI. We'll follow culture sensitivity. - Dysarthria, left sided weakness - Will obtain a CT head without contrast this morning. If it shows anything suspicious, we will consult Neurology. - Acute kidney injury - Creatinine 0.93 --> 1.34. - Pulmonary edema - CXR reviewed by me on 09/24/2016 shows diffuse pulmonary edema - Received 10mg IV Lasix on 09/24/2016. - C. difficile diarrhea - resolved. - Diarrhea is currently improved. Last BM 09/05. Last Tox PCR positive on . - Has previously been treated with Flagyl, oral vancomycin. - ID previously consulted on 08/20 with recommendations to discontinue Vanco and begin Dificid, completed course of Dificid. - Sacral pressure ulcer, resolved - Encourage repositioning patient every 2 hours. Specialty mattress continued. - Generalized weakness - Nutrition - Continue physical therapy. Patient wants to go home when discharged. - Continue Tube feed. Discussed with Insole Beveler yesterday. - Insole Beveler recommends tube feed via a pump as opposed to bolus feed. - Due to patient's history of Gastric bypass as well as gastroparesis, Insole Beveler does not recommend bolus feeding. - I agree with the business communications instructor's assessment and would recommend continuous feeding via a pump. - Lumbar radiculopathy - Neurosurgery signed off, no surgical intervention recommended at this time. Control pain [place] PRN per pain scale. - Anemia, GI bleed - Stool Hemoccult is positive on 08/30. Status post EGD, which showed esophageal ulcer. S/p transfusion 2 units on 09/02. Hb stable. Full code. DVT prophylaxis: SCDs/TEDs. Problem Qualifiers (1) Sacral pressure ulcer: Qualified Code: L89.151 - Decubitus ulcer of sacral region, stage 1 Salvador Alcocer DO September 26, 2016 10:01 am
[2016-09-26] MEDS: MUPIROCIN 2% CREAM 15 GM TOPICAL SCH ×2 (10:11→20:29)
[2016-09-26] MEDS: CALAMINE/PRAMOXINE LOTION 180 ML BTL TOPICAL SCH ×2 (10:50→20:30)
[2016-09-26] MEDS: DRONABINOL 5 MG CAP PO SCH ×2 (13:29→17:46)
[2016-09-26 16:04] LABS: AUTOMATED NEUTROPHIL # 15.6 TH/MM3 (1.8-7.7); BASOPHIL % 0.3 % (0.0-2.0); EOSINOPHIL # 0.2 TH/MM3 (0-0.4); HEMATOCRIT 25.2 % (35.0-46.0); LYMPHOCYTE # 1.2 TH/MM3 (1.0-4.8); MEAN CELL VOLUME 81.8 FL (80.0-100.0); MEAN CORPUSCULAR HEMOGLOBIN 26.7 PG (27.0-34.0); MEAN CORPUSCULAR HGB CONC 32.6 % (32.0-36.0); MONO % 3.6 % (0.0-8.0); NEUT % 88.1 % (16.0-70.0); PLATELET COUNT 231 TH/MM3 (150-450); RED BLOOD COUNT 3.08 MIL/MM3 (4.00-5.30); RED CELL DISTRIBUTION WIDTH 22.2 % (11.6-17.2); WHITE BLOOD COUNT 17.7 TH/MM3 (4.0-11.0)
--- NOTE | 2016-09-26 16:07 | RADRPT ---
EXAM DATE/TIME: 09/26/2016 12:23 [facility] COMPARISON: No previous studies available for comparison. INDICATIONS : Dysarthria, left side weakness. RADIATION DOSE: 44.82 CTDIvol (mGy) MEDICAL HISTORY : Hypertension. SURGICAL HISTORY : None. ENCOUNTER: Initial ACUITY: 1 day PAIN SCALE: 0/10 LOCATION: cranial TECHNIQUE: Multiple contiguous axial images were obtained of the head. Using automated exposure control and adj ustment of the mA and/or kV according to patient size, radiation dose was kept as low as reasonably a chievable to obtain optimal diagnostic quality images. FINDINGS: CEREBRUM: The ventricles are normal for age. No evidence of midline shift, mass lesion, hemorrhage or acute in farction. No extra-axial fluid collections are seen. POSTERIOR FOSSA: The cerebellum and brainstem are intact. The 4th ventricle is midline. The cerebellopontine angle i s unremarkable. EXTRACRANIAL: The visualized portion of the orbits is intact. SKULL: The calvaria is intact. No evidence of skull fracture. CONCLUSION: 1. No acute intracranial abnormality. There is a small amount of fluid and mucosal thickening in the right sphenoid sinus. Dillon Romero MD on September 26, 2016 at 15:57 Board Certified Radiologist. This report was verified electronically.
[2016-09-26 16:09] LABS: HEMO FLAGS AUTO DIFF
[2016-09-26 17:35] LABS: BANDS 11 % (0-6); EOSINOPHILS 2 % (0-4); KERATOCYTES OCC (NORMAL); METAMYELOCYTES 1 % (0-1); MYELOCYTES 1 % (0-0); NEUTROPHIL # MANUAL DIFF 16.5 TH/MM3 (1.8-7.7); POLYS (SEG NEUTROPHILS) 80 % (16-70); WBC DIFF SAMPLE 100
[2016-09-26 17:36] LABS: PLATELET ESTIMATE SMEAR NORMAL (NORMAL); PLATELET MORPHOLOGY ENLARGED (NORMAL); SCAN/DIFF FINAL DIFF MANUAL
[2016-09-26] MEDS: REMOVE OLD SCOPOLAMINE PATCH T-DERMAL SCH (17:37)
[2016-09-26] MEDS: SCOPOLAMINE 1.5 MG PATCH T-DERMAL SCH (17:37)
[2016-09-26] MEDS ORDERED: SODIUM CHLOR 0.9% 1000 ML INJ 1,000 ML IV SCH (17:45)
[2016-09-26] MEDS ORDERED: SODIUM CHLOR 0.9% 1000 ML INJ 1,000 ML IV ONE (18:45)
--- NOTE | 2016-09-26 18:53 | RADRPT ---
EXAM DATE/TIME: 09/26/2016 17:43 [facility] COMPARISON: CHEST SINGLE AP, September 23, 2016, 23:59. INDICATIONS : Shortness of breath. MEDICAL HISTORY : Hypertension. SURGICAL HISTORY : None. ENCOUNTER: Subsequent ACUITY: 3 days PAIN SCORE: 0/10 LOCATION: Bilateral chest FINDINGS: There is bilateral airspace disease, slightly increased on the right since September 23. No significant effu malathi. Cardiomegaly. Tortuous aorta. No pneumothorax. CONCLUSION: Slight increase in right-sided airspace disease compared with September 23. Dillon Romero MD on September 26, 2016 at 18:50 Board Certified Radiologist. This report was verified electronically.
[2016-09-26] MEDS ORDERED: LEVOFLOXACIN 500 MG PREMIX INJ 100 ML IV ONE (20:00)
[2016-09-26] MEDS: SERTRALINE HCL 100 MG TAB PO SCH (20:16)
[2016-09-26] MEDS: CETIRIZINE HCL 10 MG TAB PO SCH (20:16)
[2016-09-27] VITALS (7 sets, daily range): BP systolic 91–112; BP diastolic 49–78; PULSE 88–96; RESP 24; TEMP 97.7–98.1; O2SAT 97–100
[2016-09-27] MEDS ORDERED: FUROSEMIDE 20 MG/2 ML VIAL IV PUSH ONE
[2016-09-27] MEDS: ACETAMINOPHEN/HYDROcodone 325 MG/5 MG TAB PO PRN (02:15)
[2016-09-27 04:41] LABS: MRSA PCR NEGATIVE (NEGATIVE); STAPH AUREUS PCR POSITIVE (NEGATIVE)
[2016-09-27] MEDS: SUCRALFATE 1 GM/10 ML CUP PO SCH ×2 (05:42→09:10)
[2016-09-27 08:50] LABS: AUTOMATED NEUTROPHIL # 22.3 TH/MM3 (1.8-7.7); BASOPHIL # 0.1 TH/MM3 (0-0.2); BASOPHIL % 0.5 % (0.0-2.0); EOSINOPHIL # 0.3 TH/MM3 (0-0.4); EOSINOPHIL % 1.1 % (0.0-4.0); HEMATOCRIT 23.1 % (35.0-46.0); LYMPH % 5.2 % (9.0-44.0); LYMPHOCYTE # 1.3 TH/MM3 (1.0-4.8); MEAN CELL VOLUME 79.6 FL (80.0-100.0); MEAN CORPUSCULAR HEMOGLOBIN 26.3 PG (27.0-34.0); MEAN CORPUSCULAR HGB CONC 33.1 % (32.0-36.0); MONO % 2.6 % (0.0-8.0); NEUT % 90.6 % (16.0-70.0); PLATELET COUNT 267 TH/MM3 (150-450); RED CELL DISTRIBUTION WIDTH 22.4 % (11.6-17.2); WHITE BLOOD COUNT 24.7 TH/MM3 (4.0-11.0)
[2016-09-27 08:56] LABS: HEMO FLAGS AUTO DIFF
[2016-09-27] MEDS: SODIUM CHLORIDE 0.9% FLUSH 5 ML FLUSH FLUSH SCH (09:00)
[2016-09-27] MEDS: FAMOTIDINE 40 MG/5 ML LIQ 50 ML BTL NG SCH (09:08)
[2016-09-27 09:09] LABS: BICARBONATE 20.4 MEQ/L (21.0-32.0); POTASSIUM 3.5 MEQ/L (3.5-5.1)
[2016-09-27] MEDS: LISINOPRIL 10 MG TAB PO SCH (09:10)
[2016-09-27] MEDS: QUEtiapine FUMARATE 25 MG TAB PO SCH (09:10)
[2016-09-27] MEDS: LACTOBACILLUS ACIDOPHILUS TAB PO SCH (09:10)
[2016-09-27] MEDS: ASPIRIN EC 81 MG TABEC PO SCH (09:10)
[2016-09-27] MEDS: CALAMINE/PRAMOXINE LOTION 180 ML BTL TOPICAL SCH (09:11)
[2016-09-27] MEDS: MUPIROCIN 2% CREAM 15 GM TOPICAL SCH (09:11)
[2016-09-27 11:11] LABS: EOSINOPHILS 2 % (0-4); POLYS (SEG NEUTROPHILS) 85 % (16-70); WBC DIFF SAMPLE 100
[2016-09-27 11:12] LABS: KERATOCYTES OCC (NORMAL)
[2016-09-27 11:13] LABS: PLATELET ESTIMATE SMEAR NORMAL (NORMAL); PLATELET MORPHOLOGY NORMAL (NORMAL); SCAN/DIFF FINAL DIFF MANUAL
[2016-09-27 11:14] LABS: BANDS 4 % (0-6); METAMYELOCYTES 1 % (0-1); NEUTROPHIL # MANUAL DIFF 22.2 TH/MM3 (1.8-7.7)
--- NOTE | 2016-09-27 11:25 | PD.CONS ---
[facility] Service Critical Care Medicine Consult Requested By Dr. Alcocer Reason for Consult Hypotension Primary Care Physician Unknown History of Present Illness 70-year-old female. Date of admission 06/23/2016. Date of consultation 2016. Past medical history includes anxiety, hypertension, osteoarthritis and morbid obesity. Patient has been hospitalized at [facility] for 80 days. During this hospitalization, evaluated by neurosurgery for lumbar's spinal listhesis been without surgical recommendation, GI for gastroparesis undergoing a EGD and colonoscopy which showed an esophageal ulcer sigmoid diverticulosis. General surgery for G-tube placement with poor residuals. Cardiology for mild to moderate pulmonary hypertension. Over the past several days, patient became more more short of breath and confused. Previously diagnosed with a Pseudomonas urinary tract infection on Levaquin and currently Zosyn. We are asked to see patient secondary to decreased urine output and acute hypoxia. Chest x-ray performed yesterday revealed infiltrates versus pulmonary edema due to possible aspiration versus volume overload. Patient is currently being 5 by nephrology and will be started on Bumex drip. In long discussion with family, Adrian Arreola, at [phone] and daughter at bedside. Due to decline in function wish to pursue hospice. Options include intubation, central line placement and aggressive cares. 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 Patient's and daughter are aware they can reverse this decision at their discretion. Review of Systems ROS Limitations: Altered Mental Status Past Family Social History Allergies: Coded Allergies: Codeine (Verified Allergy, Severe, 06/06/16) sever n/v Demerol (Verified Allergy, Severe, 06/06/16) sever n/v Macrobid (Verified Allergy, Intermediate, rash, 06/26/16) Past Medical History Lumbar spondylosis Morbid obesity Anxiety Hypertension Osteoarthritis Past Surgical History Laparoscopic G-tube - Dr. Pimentel 09/22/16 Mina-en-Y gastric bypass 2004 Cholecystectomy Appendectomy Reported Medications Active Cipro (Ciprofloxacin HCl) 250 Mg Tab 250 Mg PO BID Famotidine 20 Mg Tab 20 Mg PO BID Reported Amlodipine (Amlodipine Besylate) 10 Mg Tab 10 Mg PO DAILY Sertraline (Sertraline HCl) 100 Mg Tab 200 Mg PO HS Potassium Chloride ER (Potassium Chloride) 10 Meq Tab 10 Meq PO DAILY Meloxicam 7.5 Mg Tab 7.5 Mg PO BID Lisinopril 20 Mg Tab 20 Mg PO DAILY Furosemide 20 Mg Tab 20 Mg PO DAILY Vitamin D-3 (Cholecalciferol) 1,000 Unit Tab 1,000 Units PO DAILY Aspirin 81 Mg Tabdr 81 Mg PO DAILY Active Ordered Medications Reviewed in EMR Family History Sister with diabetes mellitus. Coronary artery disease father and mother. Social History Quit tobacco 20 years ago. Scant social alcohol use. No documented IV drug use. Physical Exam Vital Signs Vital Signs Date Time Temp Pulse Resp B/P Pulse Ox O2 Delivery O2 Flow Rate FiO2 09/27/16 09:54 97 Partial Rebreather 15.00 09/27/16 06:00 96 09/27/16 04:00 100 Partial Non-Rebreather 15.00 09/27/16 04:00 97.7 91 24 91/49 100 09/27/16 04:00 91 09/27/16 02:00 88 09/27/16 00:00 92 09/27/16 00:00 100 Non-Rebreather 15.00 09/27/16 00:00 98.1 94 24 112/78 100 09/26/16 23:09 100 Non-Rebreather 15.00 100 09/26/16 19:35 97.6 86 28 104/53 92 09/26/16 16:40 95/46 09/26/16 15:20 92 Nasal Cannula 4.00 09/26/16 12:00 98.1 84 20 137/83 97 Physical Exam GENERAL: 70-year-old female, critically ill on nonrebreather mask SKIN: Warm and dry. Multiple ecchymoses bilateral lower extremity. Positive decubitus sacral ulcer HEAD: Atraumatic. Normocephalic. EYES: Pupils equal and round. No scleral icterus. No injection or drainage. ENT: No nasal bleeding or discharge. Mucous membranes pink and moist. NECK: Trachea midline. Obese neck. CARDIOVASCULAR: Tachycardic, RR S1, S2. RESPIRATORY: Diminished breath sounds. Few crackles appreciated in bases bilaterally. GASTROINTESTINAL: Abdomen soft, non-tender, obese. Hypoactive bowel sounds MUSCULOSKELETAL: Extremities with anasarca/edema. No obvious deformities. NEUROLOGICAL: Arousable but somnolent. Moves all 4 extremities spontaneously. Laboratory Laboratory Tests Test 09/26/16 09/26/16 09/27/16 15:19 23:50 08:34 White Blood Count 17.7 24.7 Red Blood Count 3.08 2.90 Hemoglobin 8.2 7.6 Hematocrit 25.2 23.1 Mean Corpuscular Volume 81.8 79.6 Mean Corpuscular Hemoglobin 26.7 26.3 Mean Corpuscular Hemoglobin 32.6 33.1 Concent Red Cell Distribution Width 22.2 22.4 Platelet Count 231 267 Mean Platelet Volume 8.8 8.7 Neutrophils (%) (Auto) 88.1 90.6 Lymphocytes (%) (Auto) 7.0 5.2 Monocytes (%) (Auto) 3.6 2.6 Eosinophils (%) (Auto) 1.0 1.1 Basophils (%) (Auto) 0.3 0.5 Neutrophils # (Auto) 15.6 22.3 Lymphocytes # (Auto) 1.2 1.3 Monocytes # (Auto) 0.6 0.7 Eosinophils # (Auto) 0.2 0.3 Basophils # (Auto) 0.0 0.1 CBC Comment AUTO DIFF AUTO DIFF Differential Total Cells 100 100 Counted Neutrophils % (Manual) 80 85 Band Neutrophils % 11 4 Lymphocytes % 1 6 Monocytes % 4 2 Eosinophils % 2 2 Neutrophils # (Manual) 16.5 22.2 Metamyelocytes 1 1 Myelocytes 1 Differential Comment FINAL DIFF FINAL DIFF MANUAL MANUAL Platelet Estimate NORMAL NORMAL Platelet Morphology Comment ENLARGED NORMAL Keratocytes OCC OCC Nasal Screen MRSA (PCR) NEGATIVE Staphylococcus aureus POSITIVE (PCR)(LAB) Sodium Level 144 Potassium Level 3.5 Chloride Level 114 Carbon Dioxide Level 20.4 Anion Gap 10 Blood Urea Nitrogen 34 Creatinine 1.39 Estimat Glomerular Filtration 37 Rate Random Glucose 107 Calcium Level 8.1 B-Type Natriuretic Peptide 382 Date/Time Procedure Status Source Growth 09/24/16 03:30 Urine Culture - Final Complete Urine Catheterized Urine Pseudomonas Aeruginosa Result Diagram: 09/27/16 0834 09/27/16 0834 Imaging Last Impressions Head CT 09/26/16 0000 Signed Impressions: Service Date/Time: Monday, September 26, 2016 12:23 - CONCLUSION: 1. No acute intracranial abnormality. There is a small amount of fluid and mucosal thickening in the right sphenoid sinus. Dillon Romero MD Chest X-Ray 09/26/16 0000 Signed Impressions: Service Date/Time: Monday, September 26, 2016 17:43 - CONCLUSION: Slight increase in right-sided airspace disease compared with September 23. Dillon Romero MD Upper Extremity Ultrasound 09/23/16 2359 Signed Impressions: Service Date/Time: Friday, September 23, 2016 01:19 - CONCLUSION: 1. No evidence of deep venous thrombosis. Sreedhar Ritchie MD Abdomen X-Ray 09/22/16 0000 Signed Impressions: Service Date/Time: Thursday, September 22, 2016 11:24 - CONCLUSION: 1. Patient refused to drink for upper GI series. 2. Gastrostomy tube in good position. Alexey Henderson Jr., MD Abdomen/Pelvis CT 09/08/16 0000 Signed Impressions: Service Date/Time: Thursday, September 08, 2016 21:55 - CONCLUSION: 1. No acute findings within the abdomen and pelvis. Colonic diverticulosis without diverticulitis. Previous gastric bypass surgery. 2. Small left-sided pleural effusion with mild basilar atelectasis. 3. Atrophic left kidney. Dillon Romero MD Hip MRI 07/05/16 0000 Signed Impressions: Service Date/Time: Tuesday, July 05, 2016 10:51 - CONCLUSION: 1. There is osteopenia primary degenerative changes at both hips, left greater than right. 2. Prominent osteophyte along the inferior articulating surface of the proximal left femur. 3. Nonspecific edema in the gluteus and hamstring muscles. 4. No acute bony fracture. Javier Fishman MD Lower Extremity Ultrasound 06/29/16 0000 Signed Impressions: Service Date/Time: Wednesday, June 29, 2016 10:07 - CONCLUSION: Negative for deep venous thrombosis. Alfredo Sanders MD FACR Cervical Spine MRI 06/27/16 0000 Signed Impressions: Service Date/Time: Monday, June 27, 2016 11:09 - CONCLUSION: Mild degenerative changes otherwise unremarkable cervical spine. Asnelmo Leavitt MD Thoracic Spine MRI 06/25/16 0000 Signed Impressions: Service Date/Time: June 19:36 - CONCLUSION: 1. No fracture or subluxation of the thoracic spine. 2. Mild and fairly diffuse degenerative changes as above. 3. Mild left foraminal encroachment at T8/T9 and T9/T10. 4. No significant spinal stenosis at any level. 5. Incidentally seen tiny right and small left pleural effusions, nonspecific. Jeevan Arreola MD Lumbar Spine MRI 06/25/16 0000 Signed Impressions: Service Date/Time: June 19:36 - CONCLUSION: 1. Multilevel lumbar degenerative changes as detailed above. 2. Mild spinal stenosis at L3/L4 without evidence of transiting nerve root impingement. 3. Mild to moderate spinal stenosis at L4/L5 and possibly with mild mass effect/impingement on the transiting left L5 nerve root within the subarticular recess. 4. Mild bilateral foraminal encroachment L3/L4 and L4/L5. Mild to moderate bilateral foraminal encroachment at L5/S1. 5. No fracture or subluxation of the lumbar spine. Jeevan Arreola MD Hip and Pelvis X-Ray 06/25/16 0000 Signed Impressions: Service Date/Time: June 20:27 - CONCLUSION: Moderate to severe left hip' right is with considerable osteophytosis and an apparent large inferior joint body. No fracture or subluxation. Jeevan Arreola MD Assessment and Plan Assessment and Plan Neuro/Psych: Acute encephalopathy/likely toxic metabolic History of anxiety Holding all sedative drugs Previous on Marinol 5 mg by mouth twice a day for nausea and on scopolamine patch. This is been held Holding Zoloft 200 mg by mouth daily Holding Seroquel 25 mg by mouth twice a day Holding Atarax for pruritus/anxiety CT head 09/26 revealed no acute intracranial finding/sinusitis CV: Hypertension 2-D echocardiogram 10/07 revealed EF 55%. Mild TR. PASP 52 mmHg Hold Norvasc 10 mg daily/lisinopril 5 mill grams by mouth daily light of hypotension/acute kidney injury Received 500 cc bolus See orders Resp: Currently on nonrebreather mask Follow-up on chest x-ray now Moderate pulmonary hypertension GI: Esophageal ulceration Sigmoid diverticulosis August/2016 patient underwent EGD which showed esophageal ulceration. Colonoscopy revealed diverticulosis without diverticulitis. Patient had surgically placed G-tube secondary to prior Mina-en-Y by Dr. Pimentel 09/2016 Currently Pepcid 10 mg twice a day and sucralfate 1 g 4 times daily Currently nothing by mouth : Delcid if indicated for accurate I's and O's in a critically ill patient Endo: Sliding scale insulin if indicated Renal: Acute kidney injury Seen by Dr. Santos. Start on Bumex drip Follow BMP in a.m. Heme: Leukocytosis Normocytic anemia Monitor CBC daily. Follow trends ID: Pseudomonas UTI Day number 1 Thuy Carl Urine culture 09/24 revealed Pseudomonas UTI/pansensitive MSK: Osteoarthritis PT evaluate and treat FEN: Replacing electrolyte as clinically indicated Access - Utilize peripheral IV. Patient's family does not want central line. Prophylaxis - GI - Protonix - DVT - SCD/Lovenox Critical Care: The total critical care time was 75 minutes. Time to perform other separately billable procedures was not included in the critical care time. Patient is currently a DNR and discussed with and daughter at bedside as above. They do not wish to have further aggressive cares including intubation, central line placements, CPR chest compressions or shocks. Hospice will be consulted. We'll continue with Bumex drip for comfort at the present time. Code Status Full code Discussed Condition With Dr. Alcocer. Patient. Care plan discussed all questions answered. Donnell Diggs MD September 27, 2016 11:25
[2016-09-27] MEDS ORDERED: PIPERACIL-TAZO 4.5 GM PREMIX 100 ML IV SCH (12:00)
[2016-09-27] MEDS: hydrOXYzine HCL 25 MG TAB PO PRN (14:12)
--- NOTE | 2016-09-27 14:40 | MB ---
cc: SAMRA PHELAN MD DATE OF CONSULTATION: 09/27/2016 REASON FOR CONSULTATION: Elevated creatinine and low urine output. HISTORY OF PRESENT ILLNESS: This is a 70-year-old female with past medical history of ischemic heart disease, congestive heart failure, hypertension, morbid obesity, lumbar spondylosis who has been in the hospital since June 23 and was transferred to the intensive care unit because of worsening shortness of breath. I was called to see the patient because of decreased urine output and elevated BUN and creatinine. The patient has a history of ischemic heart disease and has been following with her office automation technician. She recently had a urinary tract infection with Pseudomonas infection and is getting ciprofloxacin. The patient has generalized edema and anasarca and has been having now low urine output. The patient is not able to give any history. Most of the history was taken from the patient's chart and some from the patient's and daughter who are at the bedside. She is currently on partial non-rebreather mask and the and the daughter want the patient to be evaluated by palliative care and hospice has been consulted. PAST MEDICAL HISTORY: 1. Ischemic heart disease. 2. Hypertension. 3. Osteoarthritis. 4. Morbid obesity. 5. Lumbar spondylosis. 6. Ischemic heart disease. PAST SURGICAL HISTORY: 1. Cholecystectomy. 2. Appendectomy. 3. section. 4. Laparoscopy. 5. G-tube placement. REVIEW OF SYSTEMS: A review of systems cannot be taken since the patient is quite tachypneic and is not answering most of the questions. SOCIAL HISTORY: The patient is . She has past history of smoking. There is no history of heavy alcoholism. FAMILY HISTORY: Family history is noncontributory. ALLERGIES: She has allergy to: 1. CODEINE. 2. DEMEROL. 3. MACROBID. MEDICATIONS: Currently she is on: 1. Carafate 1 gram a.c. at bedtime. 2. Seroquel 25 milligrams twice a day. 3. Pepcid 10 milligrams twice a day. 4. Marinol 5 milligrams twice a day. 5. Aspirin 81 milligrams once a day. 6. Zoloft 200 milligrams at bedtime. 7. Zyrtec 10 milligrams at bedtime. 8. Levaquin 250 milligrams q. 24 hours. 9. Zosyn 4.5 grams IV q. 8 hours. 10. [place] as needed. PHYSICAL EXAMINATION: GENERAL: On examination, the patient is lethargic and on a partial nonrebreather mask with saturation of 97% to 100%. VITAL SIGNS: Her last blood pressure was 91/49, temperature is 97.7, pulse is 91 to 96. HEAD, EYES, EARS, NOSE, THROAT: The pupils are equal and reacting to light. Nonicteric sclerae. Conjunctivae are pale. NECK: The neck is supple. JVD is not elevated. LUNGS: The patient has bilateral decreased air entry with basal rales. Scattered wheezing. HEART: S1 and S2 regular rhythm. ABDOMEN: Abdomen is distended, soft and lax. EXTREMITIES: There is subcutaneous edema and she has anasarca with edema in both arms and both legs, which is pitting in nature. INVESTIGATIONS: White blood cell count is 24.7, hemoglobin 7.6, platelet count 267,000, neutrophils 90.6. Sodium 144, potassium 3.5, chloride 114, bicarbonate 20.4, BUN 34, creatinine 1.39, calcium is 8.1. INR is 1.1. Urinalysis showing large leukocyte esterase, RBCs 11, WBCs 79. Urine culture showing that she has Pseudomonas aeruginosa. ASSESSMENT AND PLAN: 1. Acute kidney injury. 2. Generalized anasarca and edema. 3. Urinary tract infection. 4. Respiratory failure. 5. Anemia. 6. Leukocytosis. 7. History of GI bleeding. 8. Sacral decubiti. The patient has acute kidney injury and most likely this is acute tubular necrosis from either infection or hypotension and she has generalized anasarca. She also has a urinary tract infection. She does not have too much proteinuria. The creatinine is stable for last few days but she is retaining more fluid. The family wishes to consult hospice now and she is a NO CODE. I will put her on Bumex infusion to get some fluid out and also to help her breathing. Once the patient will be seen by the hospitalist, then the family will decide if they wish to proceed with hospice. Will discuss with Dr. Diggs and the family at the bedside. Thank you for the consultation. I will follow the patient while she is in the hospital. MD ARIE Phelps/LUIS /12:26 PM /2:28 PM
[2016-09-27] MEDS ORDERED: BUMETANIDE INJ 100 ML IV SCH (15:00)
--- NOTE | 2016-09-27 15:14 | HHI.PR ---
Subjective Remarks Follow-up for generalized weakness, UTI. Ms. Arreola was transferred to ICU yesterday. Her respiratory status continues to worsen. She is still hypotensive. Discussed with daughter and - they want Ms. Arreola to be comfortable and no aggressive treatments. She is DNR. Objective Vitals Vital Signs Date Time Temp Pulse Resp B/P Pulse Ox O2 Delivery O2 Flow Rate FiO2 09/27/16 14:00 92 09/27/16 13:54 92 09/27/16 09:54 97 Partial Rebreather 15.00 09/27/16 08:00 100 Non-Rebreather 15.00 09/27/16 06:00 96 09/27/16 04:00 100 Partial Non-Rebreather 15.00 09/27/16 04:00 97.7 91 24 91/49 100 09/27/16 04:00 91 09/27/16 02:00 88 09/27/16 00:00 92 09/27/16 00:00 100 Non-Rebreather 15.00 09/27/16 00:00 98.1 94 24 112/78 100 09/26/16 23:09 100 Non-Rebreather 15.00 100 09/26/16 19:35 97.6 86 28 104/53 92 09/26/16 16:40 95/46 09/26/16 15:20 92 Nasal Cannula 4.00 I/O 09/26/16 09/26/16 09/26/16 09/27/16 09/27/16 09/27/16 07:00 15:00 23:00 07:00 15:00 23:00 Intake Total 580 ml 60 ml 226 ml 240 ml Output Total 300 ml 50 ml 100 ml 100 ml 50 ml Balance 280 ml 10 ml -100 ml 126 ml 190 ml Intake Oral 60 ml 0 ml IV Total 250 ml Tube Feeding 180 ml 106 ml 240 ml Other 150 ml 120 ml Output Urine Total 300 ml 50 ml 100 ml 100 ml 50 ml # Bowel Movements 0 0 Result Diagram: 09/27/16 0834 09/27/16 0834 Imaging Last Impressions Head CT 09/26/16 0000 Signed Impressions: Service Date/Time: Monday, September 26, 2016 12:23 - CONCLUSION: 1. No acute intracranial abnormality. There is a small amount of fluid and mucosal thickening in the right sphenoid sinus. Dillon Romero MD Chest X-Ray 09/26/16 Signed Impressions: Service Date/Time: Monday, September 26, 2016 17:43 - CONCLUSION: Slight increase in right-sided airspace disease compared with September 23. Dillon Romero MD Upper Extremity Ultrasound 09/23/16 2359 Signed Impressions: Service Date/Time: Friday, September 23, 2016 01:19 - CONCLUSION: 1. No evidence of deep venous thrombosis. Sreedhar Ritchie MD Abdomen X-Ray 09/22/16 Signed Impressions: Service Date/Time: Thursday, September 22, 2016 11:24 - CONCLUSION: 1. Patient refused to drink for upper GI series. 2. Gastrostomy tube in good position. Alexey Henderson Jr., MD Abdomen/Pelvis CT 09/08/16 0000 Signed Impressions: Service Date/Time: Thursday, September 08, 2016 21:55 - CONCLUSION: 1. No acute findings within the abdomen and pelvis. Colonic diverticulosis without diverticulitis. Previous gastric bypass surgery. 2. Small left-sided pleural effusion with mild basilar atelectasis. 3. Atrophic left kidney. Dillon Romero MD Hip MRI 07/05/16 Signed Impressions: Service Date/Time: Tuesday, July 05, 2016 10:51 - CONCLUSION: 1. There is osteopenia primary degenerative changes at both hips, left greater than right. 2. Prominent osteophyte along the inferior articulating surface of the proximal left femur. 3. Nonspecific edema in the gluteus and hamstring muscles. 4. No acute bony fracture. Javier Fishman MD Lower Extremity Ultrasound 06/29/16 Signed Impressions: Service Date/Time: Wednesday, June 29, 2016 10:07 - CONCLUSION: Negative for deep venous thrombosis. Alfredo Sanders MD FACR Cervical Spine MRI 06/27/16 0000 Signed Impressions: Service Date/Time: Monday, June 27, 2016 11:09 - CONCLUSION: Mild degenerative changes otherwise unremarkable cervical spine. Anselmo Leavitt MD Thoracic Spine MRI 06/25/16 0000 Signed Impressions: Service Date/Time: June 19:36 - CONCLUSION: 1. No fracture or subluxation of the thoracic spine. 2. Mild and fairly diffuse degenerative changes as above. 3. Mild left foraminal encroachment at T8/T9 and T9/T10. 4. No significant spinal stenosis at any level. 5. Incidentally seen tiny right and small left pleural effusions, nonspecific. Jeevan Arreola MD Lumbar Spine MRI 06/25/16 0000 Signed Impressions: Service Date/Time: June 19:36 - CONCLUSION: 1. Multilevel lumbar degenerative changes as detailed above. 2. Mild spinal stenosis at L3/L4 without evidence of transiting nerve root impingement. 3. Mild to moderate spinal stenosis at L4/L5 and possibly with mild mass effect/impingement on the transiting left L5 nerve root within the subarticular recess. 4. Mild bilateral foraminal encroachment L3/L4 and L4/L5. Mild to moderate bilateral foraminal encroachment at L5/S1. 5. No fracture or subluxation of the lumbar spine. Jeevan Arreola MD Hip and Pelvis X-Ray 06/25/16 0000 Signed Impressions: Service Date/Time: June 20:27 - CONCLUSION: Moderate to severe left hip' right is with considerable osteophytosis and an apparent large inferior joint body. No fracture or subluxation. Jeevan Arreola MD Objective Remarks GENERAL: Alert, NAD. SKIN: Warm and dry. HEAD: Normocephalic. EYES: No scleral icterus. No injection or drainage. NECK: Supple, trachea midline. No JVD or lymphadenopathy. CARDIOVASCULAR: Regular rate and rhythm without murmurs, gallops, or rubs. RESPIRATORY: Breath sounds equal bilaterally. No accessory muscle use. GASTROINTESTINAL: Abdomen soft, non-tender, nondistended. MUSCULOSKELETAL: No cyanosis, or edema. BACK: Nontender without obvious deformity. No CVA tenderness. Procedures 09/01/2016 Colonoscopy IMPRESSIONS: 1. Diverticolosis in left colon 2. The colonic mucosa appeared normal 3. The colon mucosa was otherwise normal 4. Retroflexed views revealed no abnormalities 5. Revealed no abnormalities of the rectum A/P Problem List: (1) Total self-care deficit ICD Code: R41.89 Status: Acute (2) Sacral pressure ulcer ICD Code: L89.159 Status: Chronic (3) Subclinical hypothyroidism ICD Code: E03.9 Status: Acute (4) Radiculopathy of lumbar region ICD Code: M54.16 Status: Acute Assessment and Plan Mrs. Arreola is a 70-year-old female with a known history of hypertension, obesity , arthritis, status post gastric bypass who presented to the ED on 06/23/16 with complaints of generalized weakness for two weeks. Apparently patient had been discharged on 06/08/16 with home health care and sustained a fall at home with progressive weakness. Supposedly she is wheelchair bound at home and unable to transfer independently. - Urinary tract infection - Probable aspiration pneumonia - Pulmonary edema - Culture is growing Pseudomonas. - Given the possibility of aspiration pneumonia, we will switch Levaquin to Zosyn IV. - Discussed with family - Patient is DNR and they mainly want comfort care. - Discussed with Dr. Diggs ([facility]) who will evaluate patient for any other therapeutic measures. - Acute kidney injury - Creatinine 0.93 --> 1.34. Urine output very low. - Will consult Nephrology with regards pulmonary edema, oliguria, hypotension. - C. difficile diarrhea - resolved. - Diarrhea is currently improved. Last BM 09/05. Last Tox PCR positive on . - Has previously been treated with Flagyl, oral vancomycin. - ID previously consulted on 08/20 with recommendations to discontinue Vanco and begin Dificid, completed course of Dificid. - Sacral pressure ulcer, resolved - Encourage repositioning patient every 2 hours. Specialty mattress continued. - Generalized weakness - Nutrition - Continue physical therapy. Patient wants to go home when discharged. - Continue Tube feed. Discussed with Drink Box Mechanic yesterday. - Drink Box Mechanic recommends tube feed via a pump as opposed to bolus feed. - Due to patient's history of Gastric bypass as well as gastroparesis, Drink Box Mechanic does not recommend bolus feeding. - I agree with the thermit welding machine operator's assessment and would recommend continuous feeding via a pump. - Lumbar radiculopathy - Neurosurgery signed off, no surgical intervention recommended at this time. Control pain Randall PRN per pain scale. - Anemia, GI bleed - Stool Hemoccult is positive on 08/30. Status post EGD, which showed esophageal ulcer. S/p transfusion 2 units on 09/02. Hb stable. DNR. DVT prophylaxis: SCDs/TEDs. Problem Qualifiers (1) Sacral pressure ulcer: Qualified Code: L89.151 - Decubitus ulcer of sacral region, stage 1 Salvador Alcocer DO September 27, 2016 3:14 pm
--- NOTE | 2016-09-27 15:45 | HHI.DS ---
Discharge Summary Admission Date Jul 09, 2016 at 03:40 Admitting Diagnosis Weakness/decubitus Ulcer/urinary tract infection (1) Total self-care deficit ICD Code: R41.89 (2) Sacral pressure ulcer ICD Code: L89.159 (3) Subclinical hypothyroidism ICD Code: E03.9 (4) Radiculopathy of lumbar region ICD Code: M54.16 Procedures 09/01/2016 Colonoscopy IMPRESSIONS: 1. Diverticolosis in left colon 2. The colonic mucosa appeared normal 3. The colon mucosa was otherwise normal 4. Retroflexed views revealed no abnormalities 5. Revealed no abnormalities of the rectum Brief History History taken from patient and ED physician. 70 y/o obese female with a history of htn, anxity and arthritis was brought into the ED with complaints of generalized weakness for the last 2 weeks. Patient was seen 2 weeks ago on 06/08/16 for a fall at home and discharged with home health care. At that time she declined SNF placement and wanted to try home care first. She is wheelchair bound and is unable to transfer independently. Her is her care provider. She states she has been very weak and unable to get out of bed for the last 2 weeks. Prior to her last admission she states her son pulled her across the bed to move her and ever since has has not been able to move over. She is incontinent of urine and stool. Prior to last admission she was able to transfer to a bedside commode. She denies any fever, chills, chest pain, sob,nausea or vomiting. She is currently having loose stools. CBC/BMP: 09/27/16 0834 09/27/16 0834 Significant Findings Laboratory Tests Test 09/24/16 09/26/16 09/26/16 09/27/16 22:49 07:40 15:19 08:34 Chloride Level 111 MEQ/L 112 MEQ/L 114 MEQ/L (98-107) (98-107) (98-107) Carbon Dioxide Level 18.3 MEQ/L 20.4 MEQ/L (21.0-32.0) (21.0-32.0) Blood Urea Nitrogen 25 MG/DL (7-18) 30 MG/DL (7-18) 34 MG/DL (7-18) Creatinine 1.34 MG/DL 1.34 MG/DL 1.39 MG/DL (0.50-1.00) (0.50-1.00) (0.50-1.00) Estimat Glomerular Filtration 39 ML/MIN (>89) 39 ML/MIN (>89) 37 ML/MIN (>89) Rate Calcium Level 7.7 MG/DL 7.4 MG/DL 8.1 MG/DL (8.5-10.1) (8.5-10.1) (8.5-10.1) Troponin I LESS THAN 0.02 NG/ML (0.02-0.05) Free Thyroxine 0.71 NG/DL (0.76-1.46) White Blood Count 13.4 TH/MM3 17.7 TH/MM3 24.7 TH/MM3 (4.0-11.0) (4.0-11.0) (4.0-11.0) Red Blood Count 3.28 MIL/MM3 3.08 MIL/MM3 2.90 MIL/MM3 (4.00-5.30) (4.00-5.30) (4.00-5.30) Hemoglobin 8.4 GM/DL 8.2 GM/DL 7.6 GM/DL (11.6-15.3) (11.6-15.3) (11.6-15.3) Hematocrit 25.0 % 25.2 % 23.1 % (35.0-46.0) (35.0-46.0) (35.0-46.0) Mean Corpuscular Volume 76.2 FL 79.6 FL (80.0-100.0) (80.0-100.0) Mean Corpuscular Hemoglobin 25.6 PG 26.7 PG 26.3 PG (27.0-34.0) (27.0-34.0) (27.0-34.0) Red Cell Distribution Width 21.2 % 22.2 % 22.4 % (11.6-17.2) (11.6-17.2) (11.6-17.2) Neutrophils (%) (Auto) 77.3 % 88.1 % 90.6 % (16.0-70.0) (16.0-70.0) (16.0-70.0) Neutrophils # (Auto) 10.4 TH/MM3 15.6 TH/MM3 22.3 TH/MM3 (1.8-7.7) (1.8-7.7) (1.8-7.7) Eosinophils # (Auto) 0.5 TH/MM3 (0-0.4) Neutrophils % (Manual) 71 % (16-70) 80 % (16-70) 85 % (16-70) Band Neutrophils % 13 % (0-6) 11 % (0-6) Neutrophils # (Manual) 11.4 TH/MM3 16.5 TH/MM3 22.2 TH/MM3 (1.8-7.7) (1.8-7.7) (1.8-7.7) Myelocytes 1 % (0-0) 1 % (0-0) Toxic Vacuolation PRESENT (NONE SEEN) Dohle Bodies PRESENT (NONE SEEN) Platelet Morphology Comment ENLARGED ENLARGED (NORMAL) (NORMAL) Acanthocytes OCC (NORMAL) Total Protein 4.9 GM/DL (6.4-8.2) Lymphocytes (%) (Auto) 7.0 % 5.2 % (9.0-44.0) (9.0-44.0) Lymphocytes % 1 % (9-44) 6 % (9-44) Keratocytes OCC (NORMAL) OCC (NORMAL) Random Glucose 107 MG/DL (74-106) B-Type Natriuretic Peptide 382 PG/ML (0-100) Imaging Last Impressions Head CT 09/26/16 0000 Signed Impressions: Service Date/Time: Monday, September 26, 2016 12:23 - CONCLUSION: 1. No acute intracranial abnormality. There is a small amount of fluid and mucosal thickening in the right sphenoid sinus. Dillon Romero MD Chest X-Ray 09/26/16 0000 Signed Impressions: Service Date/Time: Monday, September 26, 2016 17:43 - CONCLUSION: Slight increase in right-sided airspace disease compared with September 23. Dillon Romero MD Upper Extremity Ultrasound 09/23/16 [id number] Signed Impressions: Service Date/Time: Friday, September 23, 2016 01:19 - CONCLUSION: 1. No evidence of deep venous thrombosis. Sreedhar Ritchie MD Abdomen X-Ray 09/22/16 0000 Signed Impressions: Service Date/Time: Thursday, September 22, 2016 11:24 - CONCLUSION: 1. Patient refused to drink for upper GI series. 2. Gastrostomy tube in good position. Alexey Henderson Jr., MD Abdomen/Pelvis CT 09/08/16 0000 Signed Impressions: Service Date/Time: Thursday, September 08, 2016 21:55 - CONCLUSION: 1. No acute findings within the abdomen and pelvis. Colonic diverticulosis without diverticulitis. Previous gastric bypass surgery. 2. Small left-sided pleural effusion with mild basilar atelectasis. 3. Atrophic left kidney. Dillon Romero MD Hip MRI 07/05/16 0000 Signed Impressions: Service Date/Time: Tuesday, July 05, 2016 10:51 - CONCLUSION: 1. There is osteopenia primary degenerative changes at both hips, left greater than right. 2. Prominent osteophyte along the inferior articulating surface of the proximal left femur. 3. Nonspecific edema in the gluteus and hamstring muscles. 4. No acute bony fracture. Javier Fishman MD Lower Extremity Ultrasound 06/29/16 0000 Signed Impressions: Service Date/Time: Wednesday, June 29, 2016 10:07 - CONCLUSION: Negative for deep venous thrombosis. Alfredo Sanders MD FACR Cervical Spine MRI 06/27/16 0000 Signed Impressions: Service Date/Time: Monday, June 27, 2016 11:09 - CONCLUSION: Mild degenerative changes otherwise unremarkable cervical spine. Anselmo Leavitt MD Thoracic Spine MRI 06/25/16 0000 Signed Impressions: Service Date/Time: June 19:36 - CONCLUSION: 1. No fracture or subluxation of the thoracic spine. 2. Mild and fairly diffuse degenerative changes as above. 3. Mild left foraminal encroachment at T8/T9 and T9/T10. 4. No significant spinal stenosis at any level. 5. Incidentally seen tiny right and small left pleural effusions, nonspecific. Jeevan Arreola MD Lumbar Spine MRI 06/25/16 0000 Signed Impressions: Service Date/Time: June 19:36 - CONCLUSION: 1. Multilevel lumbar degenerative changes as detailed above. 2. Mild spinal stenosis at L3/L4 without evidence of transiting nerve root impingement. 3. Mild to moderate spinal stenosis at L4/L5 and possibly with mild mass effect/impingement on the transiting left L5 nerve root within the subarticular recess. 4. Mild bilateral foraminal encroachment L3/L4 and L4/L5. Mild to moderate bilateral foraminal encroachment at L5/S1. 5. No fracture or subluxation of the lumbar spine. Jeevan Arreola MD Hip and Pelvis X-Ray 06/25/16 0000 Signed Impressions: Service Date/Time: June 20:27 - CONCLUSION: Moderate to severe left hip' right is with considerable osteophytosis and an apparent large inferior joint body. No fracture or subluxation. Jeevan Arreola MD PE at Discharge GENERAL: 70-year-old female, critically ill on nonrebreather mask SKIN: Warm and dry. Multiple ecchymoses bilateral lower extremity. Positive decubitus sacral ulcer HEAD: Atraumatic. Normocephalic. EYES: Pupils equal and round. No scleral icterus. No injection or drainage. ENT: No nasal bleeding or discharge. Mucous membranes pink and moist. NECK: Trachea midline. Obese neck. CARDIOVASCULAR: Tachycardic, RR S1, S2. RESPIRATORY: Diminished breath sounds. Few crackles appreciated in bases bilaterally. GASTROINTESTINAL: Abdomen soft, non-tender, obese. Hypoactive bowel sounds MUSCULOSKELETAL: Extremities with anasarca/edema. No obvious deformities. NEUROLOGICAL: Arousable but somnolent. Moves all 4 extremities spontaneously. Transfer Summary Assessment and Plan Neuro/Psych: Acute encephalopathy/likely toxic metabolic History of anxiety Holding all sedative drugs Previous on Marinol 5 mg by mouth twice a day for nausea and on scopolamine patch. This is been held Holding Zoloft 200 mg by mouth daily Holding Seroquel 25 mg by mouth twice a day Holding Atarax for pruritus/anxiety CT head 09/26 revealed no acute intracranial finding/sinusitis CV: Hypertension 2-D echocardiogram 10/07 revealed EF 55%. Mild TR. PASP 52 mmHg Hold Norvasc 10 mg daily/lisinopril 5 mill grams by mouth daily light of hypotension/acute kidney injury Received 500 cc bolus See orders Resp: Currently on nonrebreather mask Follow-up on chest x-ray now Moderate pulmonary hypertension GI: Esophageal ulceration Sigmoid diverticulosis August/2016 patient underwent EGD which showed esophageal ulceration. Colonoscopy revealed diverticulosis without diverticulitis. Patient had surgically placed G-tube secondary to prior Mina-en-Y by Dr. Pimentel 09/2016 Currently Pepcid 10 mg twice a day and sucralfate 1 g 4 times daily Currently nothing by mouth : Delcid if indicated for accurate I's and O's in a critically ill patient Endo: Sliding scale insulin if indicated Renal: Acute kidney injury Seen by Dr. Santos. Start on Bumex drip Follow BMP in a.m. Heme: Leukocytosis Normocytic anemia Monitor CBC daily. Follow trends ID: Pseudomonas UTI Day number 1 Thuy Carl Urine culture 09/24 revealed Pseudomonas UTI/pansensitive MSK: Osteoarthritis PT evaluate and treat FEN: Replacing electrolyte as clinically indicated Access - Utilize peripheral IV. Patient's family does not want central line. Prophylaxis - GI - Protonix - DVT - SCD/Lovenox Critical Care: The total critical care time was 75 minutes. Time to perform other separately billable procedures was not included in the critical care time. Patient is currently a DNR and discussed with and daughter at bedside as above. They do not wish to have further aggressive cares including intubation, central line placements, CPR chest compressions or shocks. Hospice will be consulted. We'll continue with Bumex drip for comfort at the present time. Code Status Full code Discussed Condition With Dr. Alcocer. Patient. Care plan discussed all questions answered. Hospital Course Assessment and Plan Neuro/Psych: Acute encephalopathy/likely toxic metabolic History of anxiety Holding all sedative drugs Previous on Marinol 5 mg by mouth twice a day for nausea and on scopolamine patch. This is been held Holding Zoloft 200 mg by mouth daily Holding Seroquel 25 mg by mouth twice a day Holding Atarax for pruritus/anxiety CT head 09/26 revealed no acute intracranial finding/sinusitis CV: Hypertension 2-D echocardiogram 10/07 revealed EF 55%. Mild TR. PASP 52 mmHg Hold Norvasc 10 mg daily/lisinopril 5 mill grams by mouth daily light of hypotension/acute kidney injury Received 500 cc bolus See orders Resp: Currently on nonrebreather mask Follow-up on chest x-ray now Moderate pulmonary hypertension GI: Esophageal ulceration Sigmoid diverticulosis August/2016 patient underwent EGD which showed esophageal ulceration. Colonoscopy revealed diverticulosis without diverticulitis. Patient had surgically placed G-tube secondary to prior Mina-en-Y by Dr. Pimentel 09/2016 Currently Pepcid 10 mg twice a day and sucralfate 1 g 4 times daily Currently nothing by mouth : Delcid if indicated for accurate I's and O's in a critically ill patient Endo: Sliding scale insulin if indicated Renal: Acute kidney injury Seen by Dr. Santos. Start on Bumex drip Follow BMP in a.m. Heme: Leukocytosis Normocytic anemia Monitor CBC daily. Follow trends ID: Pseudomonas UTI Day number 1 Zosyn, Levaquin Urine culture 09/24 revealed Pseudomonas UTI/pansensitive MSK: Osteoarthritis PT evaluate and treat FEN: Replacing electrolyte as clinically indicated Access - Utilize peripheral IV. Patient's family does not want central line. Prophylaxis - GI - Protonix - DVT - SCD/Lovenox Critical Care: The total critical care time was 75 minutes. Time to perform other separately billable procedures was not included in the critical care time. Patient is currently a DNR and discussed with and daughter at bedside as above. They do not wish to have further aggressive cares including intubation, central line placements, CPR chest compressions or shocks. Hospice will be consulted. We'll continue with Bumex drip for comfort at the present time. Code Status Full code Discussed Condition With Dr. Alcocer. Patient. Care plan discussed all questions answered. Pt Condition on Discharge: Stable Discharge Disposition: Hospice/Med Facility Discharge Instructions DIET: Follow Instructions for: Nothing By Mouth Additional Diet Instructions: nothing by mouth Activities you can perform: Regular-No Restrictions, See Additionl Instruction , Continue Bedrest Other Activity Instructions: comfort measures Donnell Diggs MD September 27, 2016 15:45
[2016-09-27] MEDS ORDERED: LEVOFLOXACIN/DEXTROSE 250 MG/50 ML IV SCH (20:00)
== END 2016-09-27 18:15 | disposition hospice, inpatient (51) | DRG 551 ==
LOC: NEPC 13:46 → NEDA 18:07 → NEPGCP 21:34 → HOCB 07-05 00:10 → OBSVTOIN 07-09 03:40 → HOCA 08-05 20:58 → N05B 08-12 23:11 → HIMN 09-26 23:50
PROVIDERS: ADMIT Hospitalist; ATTEND Hospitalist
PROC: 0DJD8ZZ Inspection of Lower Intestinal Tract, Via Natural or Artificial Opening Endoscopic (ICD-10-PCS; 2016-09-01)
PROC: 0DB38ZX Excision of Lower Esophagus, Via Natural or Artificial Opening Endoscopic, Diagnostic (ICD-10-PCS; 2016-09-01 10:45)
PROC: 30233N1 Transfusion of Nonautologous Red Blood Cells into Peripheral Vein, Percutaneous Approach (ICD-10-PCS; 2016-09-02)
PROC: 0DH64UZ Insertion of Feeding Device into Stomach, Percutaneous Endoscopic Approach (ICD-10-PCS; principal; 2016-09-21 16:08)
DX: M47.26 Other spondylosis with radiculopathy, lumbar region (principal); N17.0 Acute kidney failure with tubular necrosis; J69.0 Pneumonitis due to inhalation of food and vomit; J96.91 Respiratory failure, unspecified with hypoxia; G93.41 Metabolic encephalopathy; L89.151 Pressure ulcer of sacral region, stage 1; A04.7 Enterocolitis due to Clostridium difficile; K22.10 Ulcer of esophagus without bleeding; I13.0 Hypertensive heart and chronic kidney disease with heart failure and stage 1 through stage 4 chronic kidney disease, or unspecified chronic kidney disease; B37.0 Candidal stomatitis; N39.0 Urinary tract infection, site not specified; L03.116 Cellulitis of left lower limb; Z68.42 Body mass index [BMI] 45.0-49.9, adult; D62 Acute posthemorrhagic anemia; J98.11 Atelectasis; I27.2 Other secondary pulmonary hypertension; K31.84 Gastroparesis; M16.12 Unilateral primary osteoarthritis, left hip; M47.816 Spondylosis without myelopathy or radiculopathy, lumbar region; M51.36 Other intervertebral disc degeneration, lumbar region; E66.01 Morbid (severe) obesity due to excess calories; R32 Unspecified urinary incontinence; R63.3 Feeding difficulties; R15.9 Full incontinence of feces; F41.9 Anxiety disorder, unspecified; R94.6 Abnormal results of thyroid function studies; G83.10 Monoplegia of lower limb affecting unspecified side; E03.9 Hypothyroidism, unspecified; M48.06 Spinal stenosis, lumbar region; L27.0 Generalized skin eruption due to drugs and medicaments taken internally; I25.9 Chronic ischemic heart disease, unspecified; F32.9 Major depressive disorder, single episode, unspecified; K57.30 Diverticulosis of large intestine without perforation or abscess without bleeding; R94.31 Abnormal electrocardiogram [ECG] [EKG]; B96.5 Pseudomonas (aeruginosa) (mallei) (pseudomallei) as the cause of diseases classified elsewhere; Z66 Do not resuscitate; R62.7 Adult failure to thrive; N18.3 Chronic kidney disease, stage 3 (moderate); E87.6 Hypokalemia; E83.42 Hypomagnesemia; F29 Unspecified psychosis not due to a substance or known physiological condition; R63.4 Abnormal weight loss; Z51.5 Encounter for palliative care; Z99.3 Dependence on wheelchair; Z98.84 Bariatric surgery status; Z88.5 Allergy status to narcotic agent; Z74.01 Bed confinement status; Z87.442 Personal history of urinary calculi; Z87.891 Personal history of nicotine dependence; Z91.81 History of falling; T37.8X5A Adverse effect of other specified systemic anti-infectives and antiparasitics, initial encounter; M51.16 Intervertebral disc disorders with radiculopathy, lumbar region; E16.2 Hypoglycemia, unspecified; G89.29 Other chronic pain; Z91.19 Patient's noncompliance with other medical treatment and regimen
CPT/HCPCS: 36430; 51702; 70450; 71010; 71020; 72141; 72146; 72148; 73502; 73721; 74020; 74176; 76937; 80048; 80053; 80076; 81001; 82248; 82272; 82306; 82550; 82552; 82948; 83605; 83690; 83735; 83880; 84100; 84132; 84155; 84439; 84443; 84480; 84484; 85007; 85014; 85018; 85025; 85027; 85610; 85730; 86850; 86900; 86901; 86920; 87077; 87086; 87186; 87493; 87640; 87641; 88305; 88312; 93005; 93306; 93970; 93971; 94150; 96360; C9113; G0378; G8987-GP; G8988-GP; J0690; J0692; J0696; J1650; J1885; J1940; J1956; J2370; J2405; J2550; J2710; J2765; J3010; J3475; J3480; J7030; J7040; J7050; J7120; J7512; P9016; Q0167; Q9963